=== PATIENT | male | born 1935 | race Caucasian/White ===

== ENCOUNTER 2017-03-04 12:54 | Emergency (ER) | payer MEDICARE, MEDICAID ==
[~2017-03-04] VITALS: Ht 172.7 cm; Wt 113.6 kg
[~2017-03-04 12:54] MED LIST: ALBU8I INH; LISI-360 PO; ONDA1TAB16 PO; XARE10TA PO
[2017-03-04 12:56] VITALS: BP 160/88; PULSE 66; RESP 20; TEMP 98; O2SAT 94
[2017-03-04] MEDS ORDERED: SODIUM CHLORIDE 0.9% FLUSH 10 ML FLUSH IV FLUSH PRN (13:30)
--- NOTE | 2017-03-04 13:31 | PD ---
HPI Chief Complaint: Flank/Kidney Pain Time Seen by Provider: 13:16 Travel History International Travel<30 days: No Contact w/Intl Traveler<30days: No Traveled to known affect area: No History of Present Illness HPI 81-year-old male here for evaluation of right flank pain 3 days. Patient describes sharp pain in his right flank area that is worse with movements, better with rest. He denies trauma. He reports some difficulty with urination. He denies dysuria or hematuria. No fevers or chills. No nausea or vomiting. No paresthesias or motor deficits. He drove himself here from home. PFS Past Medical History Arthritis: Yes Heart Rhythm Problems: No Cancer: No Cardiovascular Problems: No High Cholesterol: Yes COPD: Yes Diabetes: No Diminished Hearing: No Endocrine: No Genitourinary: No Hepatitis: No Hiatal Hernia: No Hypertension: Yes Immune Disorder: No Musculoskeletal: Yes (ARTHRITIS) Neurologic: No Psychiatric: No Reproductive: No Respiratory: Yes (COPD) Thyroid Disease: No Past Surgical History Eye Surgery: Yes (BILATERAL CATARACTS) Oral Surgery: Yes (LAUREN ENDOSCOPIC SINUOTOMIES) Other Surgery: Yes (NASAL POLYPS REMOVED) Social History Alcohol Use: No Tobacco Use: No Substance Use: No Allergies-Medications (Allergen,Severity, Reaction): Coded Allergies: Aspirin (Verified Allergy, Mild, HEART RATE INCREASES, 03/04/17) Caffeine (Verified Allergy, Mild, HEART RATE INCREASES, 03/04/17) Reported Meds & Prescriptions Reported Meds & Active Scripts Active Active Prescriptions or Reported Medications Unobtainable Review of Systems Except as stated in HPI: all other systems reviewed are Neg Physical Exam Narrative GENERAL: Well-developed, well-nourished, sitting comfortably on stretcher, no apparent distress. SKIN: Focused skin assessment warm/dry. No rash. HEAD: Atraumatic. Normocephalic. EYES: Pupils equal and round. No scleral icterus. No injection or drainage. ENT: Mucous membranes pink and moist. NECK: Trachea midline. No JVD. CARDIOVASCULAR: Regular rate and rhythm. RESPIRATORY: No accessory muscle use. Clear to auscultation. Breath sounds equal bilaterally. GASTROINTESTINAL: Abdomen soft, non-tender, nondistended. MUSCULOSKELETAL: No obvious deformities. No clubbing. No cyanosis. No edema. No midline vertebral step-off or tenderness. Moderate right flank/CVA tenderness as well as right SI joint tenderness. No left CVA tenderness. NEUROLOGICAL: Awake and alert. No obvious cranial nerve deficits. Motor grossly within normal limits. Normal speech. Great toe extension present bilaterally. PSYCHIATRIC: Appropriate mood and affect; insight and judgment normal. Data Data Last Documented VS Vital Signs Date Time Temp Pulse Resp B/P Pulse Ox O2 Delivery O2 Flow Rate FiO2 03/04/17 14:05 20 03/04/17 12:56 98.0 66 160/88 94 Orders Complete Blood Count With Diff (03/04/17 13:25) Comprehensive Metabolic Panel (03/04/17 13:25) Lipase (03/04/17 13:25) Prothrombin Time / Inr (Pt) (03/04/17 13:25) Act Partial Throm Time (Ptt) (03/04/17 13:25) Urinalysis - C+S If Indicated (03/04/17 13:25) Ct Abd/Pel W Iv Contrast(Rout) (03/04/17 13:25) Iv Access Insert/Monitor (03/04/17 13:25) Ecg Monitoring (03/04/17 13:25) Oximetry (03/04/17 13:25) Sodium Chloride 0.9% Flush (Ns Flush) (03/04/17 13:30) Ct Lumb Spine W/O Contrast (03/04/17 ) Iohexol 350 Inj (Omnipaque 350 Inj) (03/04/17 15:09) Mri T Spine W & W/O Contrast (03/04/17 ) Mri L Spine W&W/O Contrast (03/04/17 ) Labs Laboratory Tests Test 03/04/17 03/04/17 13:30 14:00 Urine Color YELLOW Urine Turbidity CLEAR Urine pH 6.0 Urine Specific [place] 1.023 Urine Protein NEG mg/dL Urine Glucose (UA) NEG mg/dL Urine Ketones NEG mg/dL Urine Occult Blood TRACE Urine Nitrite NEG Urine Bilirubin NEG Urine Leukocyte Esterase NEG Urine RBC 0-3 /hpf Urine WBC 0-2 /hpf Urine Squamous Epithelial > 8 /hpf Cells Urine Bacteria OCC /hpf Urine Mucus FEW /lpf Microscopic Urinalysis Comment CULT NOT INDICATED White Blood Count 9.8 TH/MM3 Red Blood Count 6.94 MIL/MM3 Hemoglobin 13.3 GM/DL Hematocrit 44.2 % Mean Corpuscular Volume 63.7 FL Mean Corpuscular Hemoglobin 19.2 PG Mean Corpuscular Hemoglobin 30.1 % Concent Red Cell Distribution Width 17.0 % Platelet Count 162 TH/MM3 Mean Platelet Volume 7.7 FL Neutrophils (%) (Auto) 39.0 % Lymphocytes (%) (Auto) 49.5 % Monocytes (%) (Auto) 6.2 % Eosinophils (%) (Auto) 4.0 % Basophils (%) (Auto) 1.3 % Neutrophils # (Auto) 3.8 TH/MM3 Lymphocytes # (Auto) 4.9 TH/MM3 Monocytes # (Auto) 0.6 TH/MM3 Eosinophils # (Auto) 0.4 TH/MM3 Basophils # (Auto) 0.1 TH/MM3 CBC Comment AUTO DIFF Differential Comment AUTO DIFF CONFIRMED Ovalocytes 2+ Prothrombin Time 10.1 SEC Prothromb Time International 0.9 RATIO Ratio Activated Partial 24.3 SEC Thromboplast Time Sodium Level 144 MEQ/L Potassium Level 4.6 MEQ/L Chloride Level 111 MEQ/L Carbon Dioxide Level 26.5 MEQ/L Anion Gap 7 MEQ/L Blood Urea Nitrogen 28 MG/DL Creatinine 1.50 MG/DL Estimat Glomerular Filtration 45 ML/MIN Rate Random Glucose 111 MG/DL Calcium Level 8.6 MG/DL Total Bilirubin 0.7 MG/DL Aspartate Amino Transf 15 U/L (AST/SGOT) Alanine Aminotransferase 20 U/L (ALT/SGPT) Alkaline Phosphatase 78 U/L Total Protein 7.5 GM/DL Albumin 3.5 GM/DL Lipase 275 U/L [facility] Medical Decision Making Medical Screen Exam Complete: Yes Emergency Medical Condition: Yes Differential Diagnosis Nephrolithiasis, pyelonephritis, ureterolithiasis, dissection, musculoskeletal pain, spinal stenosis, hepatobiliary disease Narrative Course Initial vital signs show heart rate 66, blood pressure 160/88, pulse ox 94% on room air, oral temp of 98F. CBC shows WBC 9.8, hemoglobin 13.3, hematocrit 44.2, platelets 162, MCV 63.7 CMP is remarkable for BUN 28, creatinine 1.5, GFR 45 which is around his baseline, otherwise unremarkable. Lipase is 275. UA: Trace occult blood, greater than 8 epithelial cells, occasional bacteria, few mucus, negative nitrites, negative leukocyte esterase, not suggestive of UTI. CT abdomen pelvis: CONCLUSION: 1. No calcified renal stones or hydronephrosis. 2. Sigmoid diverticulosis without radiographic evidence of diverticulitis. 3. Small umbilical hernia. CT lumbar spine: CONCLUSION: 1. Large minimally expansile lytic lesion involving the right iliac bone abutting the SI joint with sharply defined sclerotic margins and potential cortical breakthrough medially at the SI joint. Overall features are consistent with a lesion of low biologic activity and differential considerations include aneurysmal bone cyst and fibrous dysplasia. Multiple myeloma/metastatic disease are felt to be less likely. Consider MRI examination for further evaluation. 2. Multiple large Schmorl's nodes involving T12 and L1 superior endplates. If patient has focal pain on palpation of the spinous processes at these levels and there is concern for acute compression fractures, MRI examination may be performed to evaluate for bone marrow edema. 3. Degenerative spondylosis of the lumbar spine most prominently at L4-5, as above. Patient was made aware of all findings. He reports that he is pain-free while at rest, however experiences flank pain with exertion. He denies history of trauma. He has agreed to have MRI today for further investigation. This decision was made at time of the end of my shift approximate 4:00 PM. At this time the patient was signed out to Dr. Barraza to follow up with MRI and formulate a disposition. Scripts Unable to Obtain Active Prescriptions or Reported Meds Ian Perez MD Mar 04, 2017 13:31
[2017-03-04 13:43] LABS: BLOOD, URINE TRACE (NEG); GLUCOSE,URINE NEG (NEG); KETONE, URINE NEG (NEG); NITRITE,URINE NEG (NEG)
[2017-03-04 13:49] LABS: MUCUS URINE FEW /lpf (OCC); RBC, URINE 0-3 /hpf (0-3); SQUAMOUS EPITHELIAL CELL URINE > 8 /hpf (0-5); URINE COLOR YELLOW (YELLW/STRAW); WBC, URINE 0-2 /hpf (0-5)
[2017-03-04 13:50] LABS: BACTERIA, URINE OCC /hpf; COMMENT (UR) CULT NOT INDICATED; CULTURE IF INDICATED CULT NOT INDICATED
[2017-03-04 14:21] LABS: AUTOMATED NEUTROPHIL # 3.8 TH/MM3 (1.8-7.7); BASOPHIL # 0.1 TH/MM3 (0-0.2); BASOPHIL % 1.3 % (0.0-2.0); EOSINOPHIL # 0.4 TH/MM3 (0-0.4); HEMATOCRIT 44.2 % (39.0-51.0); LYMPH % 49.5 % (9.0-44.0); LYMPHOCYTE # 4.9 TH/MM3 (1.0-4.8); MEAN CELL VOLUME 63.7 FL (80.0-100.0); MEAN CORPUSCULAR HEMOGLOBIN 19.2 PG (27.0-34.0); MEAN CORPUSCULAR HGB CONC 30.1 % (32.0-36.0); MONO % 6.2 % (0.0-8.0); PLATELET COUNT 162 TH/MM3 (150-450); RED BLOOD COUNT 6.94 MIL/MM3 (4.50-5.90); WHITE BLOOD COUNT 9.8 TH/MM3 (4.0-11.0)
[2017-03-04 14:22] LABS: HEMO FLAGS AUTO DIFF
[2017-03-04 14:28] LABS: CHLORIDE 111 MEQ/L (98-107); POTASSIUM 4.6 MEQ/L (3.5-5.1); SODIUM (NA) 144 MEQ/L (136-145)
[2017-03-04 14:31] LABS: APTT (PATIENT) 24.3 SEC (24.3-30.1); INTERNATIONAL NORMALIZED RATIO 0.9 RATIO; PROTHROMBIN TIME - PATIENT 10.1 SEC (9.8-11.6)
[2017-03-04 14:32] LABS: ANION GAP 7 MEQ/L (5-15); BICARBONATE 26.5 MEQ/L (21.0-32.0); BLOOD UREA NITROGEN 28 MG/DL (7-18)
[2017-03-04 14:35] LABS: ALT (GPT) 20 U/L (12-78); AST (GOT) 15 U/L (15-37); GLOMERULAR FILTRATION RATE 45 ML/MIN (>89)
[2017-03-04 14:36] LABS: TOTAL BILIRUBIN ADULT 0.7 MG/DL (0.2-1.0)
[2017-03-04 14:38] LABS: ALKALINE PHOSPHATASE 78 U/L (45-117)
[2017-03-04] MEDS ORDERED: IOHEXOL 350 MG/ML 10 ML VIAL (for RAD DIAG) IV ONE (15:09)
--- NOTE | 2017-03-04 15:19 | RADRPT ---
EXAM DATE/TIME: 03/04/2017 14:44 [facility] COMPARISON: No previous studies available for comparison. INDICATIONS : Right flank pain. IV CONTRAST: 80 cc Omnipaque 350 (iohexol) IV ORAL CONTRAST: No oral contrast ingested. RADIATION DOSE: 21.53 CTDIvol (mGy) MEDICAL HISTORY : Hypertension. Chronic obstructive pulmonary disease. SURGICAL HISTORY : None. ENCOUNTER: Initial ACUITY: 3 days PAIN SCALE: 10/10 LOCATION: Right flank TECHNIQUE: Volumetric scanning of the abdomen and pelvis was performed. Using automated exposure control and ad justment of the mA and/or kV according to patient size, radiation dose was kept as low as reasonably achievable to obtain optimal diagnostic quality images. DICOM format image data is available electro nically for review and comparison. FINDINGS: LOWER LUNGS: The visualized lower lungs are clear. LIVER: Homogeneous density without lesion. There is no dilation of the biliary tree. Numerous calcified ga llstones measuring up to 1 cm in size. SPLEEN: Normal size without lesion. PANCREAS: Within normal limits. KIDNEYS: Normal in size and shape. There is no mass, stone or hydronephrosis. Numerous cysts in the right ki dney measuring up to 6.2 cm. Transcortical cyst upper pole left kidney measuring 4.0 cm. ADRENAL GLANDS: Within normal limits. VASCULAR: There is no aortic aneurysm. BOWEL/MESENTERY: No dilated loops of small enlarged bowel. Numerous diverticula in the sigmoid colon. There is a loo p of small bowel which extends into the umbilical hernia. ABDOMINAL WALL: Small umbilical hernia containing small bowel. RETROPERITONEUM: There is no lymphadenopathy. BLADDER: No wall thickening or mass. REPRODUCTIVE: The prostate is enlarged measuring 6.1 cm in width. Density is mildly heterogeneous. No calcificati ons. INGUINAL: There is no lymphadenopathy or hernia. MUSCULOSKELETAL: Within normal limits for patient age. CONCLUSION: 1. No calcified renal stones or hydronephrosis. 2. Sigmoid diverticulosis without radiographic evidence of diverticulitis. 3. Small umbilical hernia. Tarun Coelho MD on March 04, 2017 at 15:14 Board Certified Radiologist. This report was verified electronically.
--- NOTE | 2017-03-04 15:43 | RADRPT ---
EXAM DATE/TIME: 03/04/2017 14:44 [facility] COMPARISON: ABDOMEN FLAT & UPRIGHT, March 08, 2016, 15:30. INDICATIONS : Right flank pain. RADIATION DOSE: ; Reconstructed from previous dataset MEDICAL HISTORY : Hypertension. Chronic obstructive pulmonary disease. SURGICAL HISTORY : None. ENCOUNTER: Initial ACUITY: 3 days PAIN SCALE: 10/10 LOCATION: Right flank TECHNIQUE: Volumetric scanning of the lumbar spine was performed. Multiplanar reconstructions in the sagittal, coronal and oblique axial planes were performed. Using automated exposure control and adjustment of the mA and/or kV according to patient size, radiation dose was kept as low as reasonably achievable t o obtain optimal diagnostic quality images. DICOM format image data is available electronically for review and comparison. FINDINGS: Compression deformities of the superior endplates at T12 and L1 with appearance consistent with large Schmorl's nodes. Remaining vertebral body heights are intact. No evidence for acute bony fracture. T here is a large minimally expansile lytic lesion involving the right iliac bone abutting the SI joint with sharply defined sclerotic margins. There is possible cortical breakthrough medially at the SI j oint. No definite soft tissue component. There are no additional focal lytic or blastic bony lesions. There is multilevel degenerative spondylosis most prominently at L4-5 with disc space loss, vacuum d isc phenomenon, and posterior disc osteophyte complex. There is resultant mild right and moderate lef t neural foraminal stenosis. Visualized paraspinal soft tissues demonstrate a partially imaged large cyst in the right kidney. Mod erate atherosclerotic calcifications of the abdominal aorta. Remaining paravertebral soft tissues are unremarkable. CONCLUSION: 1. Large minimally expansile lytic lesion involving the right iliac bone abutting the SI joint with s harply defined sclerotic margins and potential cortical breakthrough medially at the SI joint. Overal l features are consistent with a lesion of low biologic activity and differential considerations incl ude aneurysmal bone cyst and fibrous dysplasia. Multiple myeloma/metastatic disease are felt to be l ess likely. Consider MRI examination for further evaluation. 2. Multiple large Schmorl's nodes involving T12 and L1 superior endplates. If patient has focal pain on palpation of the spinous processes at these levels and there is concern for acute compression frac tures, MRI examination may be performed to evaluate for bone marrow edema. 3. Degenerative spondylosis of the lumbar spine most prominently at L4-5, as above. Yasmany Ellis MD on March 04, 2017 at 15:17 Board Certified Radiologist. This report was verified electronically.
[2017-03-04 15:57] LABS: OVALOCYTES 2+ (NORMAL); SCAN/DIFF AUTO DIFF CONFIRMED
[2017-03-04 16:16] VITALS: BP 172/92; PULSE 72; RESP 20; O2SAT 98
--- NOTE | 2017-03-04 16:38 | PD ---
Physical Exam Date Seen by Provider: Mar 04, 2017 Time Seen by Provider: 16:36 Narrative This 81-year-old male had presented with back pain. He was seen initially by Dr. Perez and CT scans of his pelvis and spine were obtained. He had abnormalities of the pelvis. He had an expansile lesion in the ileum and some Schmorl's nodes in his neck. MRI was recommended for further characterization of these lesions. We spoke with the patient regarding getting the MRIs and recommended that we get them now and in fact the MRIs were ordered. The patient does have a lot of issues at home. He is helping his daughter care for his grandchild who is having a lot of behavioral problems and the patient says he cannot stay. He is a patient with Dr. Smith to [facility] and he says he will follow-up with Dr. Myles on Tuesday. The patient does not have any neurologic deficits he will be encouraged to return if any problem. He has been taking [id number] medication with incomplete relief and I will prescribe some Lortab for him to use for the next few days. Patient understands that the differential includes tumor and we have tried to encourage him to stay for further evaluation but says he is not able to at this time Data Data Last Documented VS Vital Signs Date Time Temp Pulse Resp B/P Pulse Ox O2 Delivery O2 Flow Rate FiO2 03/04/17 16:16 72 20 172/92 98 Room Air 03/04/17 12:56 98.0 Orders Complete Blood Count With Diff (03/04/17 13:25) Comprehensive Metabolic Panel (03/04/17 13:25) Lipase (03/04/17 13:25) Prothrombin Time / Inr (Pt) (03/04/17 13:25) Act Partial Throm Time (Ptt) (03/04/17 13:25) Urinalysis - C+S If Indicated (03/04/17 13:25) Ct Abd/Pel W Iv Contrast(Rout) (03/04/17 13:25) Iv Access Insert/Monitor (03/04/17 13:25) Ecg Monitoring (03/04/17 13:25) Oximetry (03/04/17 13:25) Sodium Chloride 0.9% Flush (Ns Flush) (03/04/17 13:30) Ct Lumb Spine W/O Contrast (03/04/17 ) Iohexol 350 Inj (Omnipaque 350 Inj) (03/04/17 15:09) Labs Laboratory Tests Test 03/04/17 03/04/17 13:30 14:00 Urine Color YELLOW Urine Turbidity CLEAR Urine pH 6.0 Urine Specific [place] 1.023 Urine Protein NEG mg/dL Urine Glucose (UA) NEG mg/dL Urine Ketones NEG mg/dL Urine Occult Blood TRACE Urine Nitrite NEG Urine Bilirubin NEG Urine Leukocyte Esterase NEG Urine RBC 0-3 /hpf Urine WBC 0-2 /hpf Urine Squamous Epithelial > 8 /hpf Cells Urine Bacteria OCC /hpf Urine Mucus FEW /lpf Microscopic Urinalysis Comment CULT NOT INDICATED White Blood Count 9.8 TH/MM3 Red Blood Count 6.94 MIL/MM3 Hemoglobin 13.3 GM/DL Hematocrit 44.2 % Mean Corpuscular Volume 63.7 FL Mean Corpuscular Hemoglobin 19.2 PG Mean Corpuscular Hemoglobin 30.1 % Concent Red Cell Distribution Width 17.0 % Platelet Count 162 TH/MM3 Mean Platelet Volume 7.7 FL Neutrophils (%) (Auto) 39.0 % Lymphocytes (%) (Auto) 49.5 % Monocytes (%) (Auto) 6.2 % Eosinophils (%) (Auto) 4.0 % Basophils (%) (Auto) 1.3 % Neutrophils # (Auto) 3.8 TH/MM3 Lymphocytes # (Auto) 4.9 TH/MM3 Monocytes # (Auto) 0.6 TH/MM3 Eosinophils # (Auto) 0.4 TH/MM3 Basophils # (Auto) 0.1 TH/MM3 CBC Comment AUTO DIFF Differential Comment AUTO DIFF CONFIRMED Ovalocytes 2+ Prothrombin Time 10.1 SEC Prothromb Time International 0.9 RATIO Ratio Activated Partial 24.3 SEC Thromboplast Time Sodium Level 144 MEQ/L Potassium Level 4.6 MEQ/L Chloride Level 111 MEQ/L Carbon Dioxide Level 26.5 MEQ/L Anion Gap 7 MEQ/L Blood Urea Nitrogen 28 MG/DL Creatinine 1.50 MG/DL Estimat Glomerular Filtration 45 ML/MIN Rate Random Glucose 111 MG/DL Calcium Level 8.6 MG/DL Total Bilirubin 0.7 MG/DL Aspartate Amino Transf 15 U/L (AST/SGOT) Alanine Aminotransferase 20 U/L (ALT/SGPT) Alkaline Phosphatase 78 U/L Total Protein 7.5 GM/DL Albumin 3.5 GM/DL Lipase 275 U/L MDM Supervised Visit with BESSY: No Differential Diagnosis Differential includes space-occupying lesion, malignancy, Cysts Narrative Course Patient needs further workup. MRI is brought for her in fact ordered by Dr. Hanks but the patient is quite anxious that he has to leave and says he'll see Dr. Smith for outpatient workup Diagnosis Primary Impression: Back pain Qualified Code: M54.5 - Low back pain, unspecified back pain laterality, unspecified chronicity, with sciatica presence unspecified Scripts Hydrocodone-Acetaminophen (Lortab)7.5-325 Mg Tab1 Tab PO Q4H PRN (PAIN) #20 TAB Ref 0 Prov:Jamaal Barraza MD 03/04/17 Disposition: 01 DISCHARGE HOME Condition: Stable Jamaal Barraza MD Mar 04, 2017 16:38
[2017-03-04] MEDS ORDERED: HYDR-3534 PO (16:39)
== END 2017-03-04 16:57 | disposition home or self-care (01) ==
LOC: PHED 12:54
DX: M54.40 Lumbago with sciatica, unspecified side (principal); M19.90 Unspecified osteoarthritis, unspecified site; E78.00 Pure hypercholesterolemia, unspecified; J44.9 Chronic obstructive pulmonary disease, unspecified; I10 Essential (primary) hypertension
CPT/HCPCS: 72131; 74177; 80053; 81001; 83690; 85025; 85610; 85730; 99285; Q9967

== ENCOUNTER 2017-11-28 10:57 | Emergency (ER) | payer MEDICARE, MEDICAID ==
[~2017-11-28] VITALS: Ht 172.7 cm; Wt 111.0 kg
[~2017-11-28 10:57] MED LIST changes: -ALBU8I INH; +HYDR-3534 PO; -LISI-360 PO; -ONDA1TAB16 PO; -XARE10TA PO
[2017-11-28 11:04] VITALS: BP 132/74; PULSE 65; RESP 18; TEMP 97.7; O2SAT 90
[2017-11-28] MEDS ORDERED: BP MED (11:10)
[2017-11-28] MEDS ORDERED: DEXAMETHASONE SOD PHOS 4 MG/ML VIAL IM ONE (12:00)
[2017-11-28] MEDS ORDERED: ACETAMINOPHEN/HYDROcodone 325 MG/5 MG TAB PO ONE (12:00)
--- NOTE | 2017-11-28 12:00 | PD ---
HPI Chief Complaint: Musculoskeletal Complaint Time Seen by Provider: 11:43 Travel History International Travel<30 days: No Contact w/Intl Traveler<30days: No Traveled to known affect area: No History of Present Illness HPI 82-year-old male here with right great toe pain 2 days. He reports the area has become increasingly more painful, red, swollen. No injury or trauma. No fever chills. Cannot recall being diagnosed with gout in the past although he reports other nontraumatic joint pain in the past similar to this. Symptom severity is moderate. Aggravated by movement and palpation of the area. No alleviating factors. PFSH Past Medical History Arthritis: Yes Blood Disorders: No Heart Rhythm Problems: No Cancer: No Cardiovascular Problems: No High Cholesterol: Yes COPD: Yes Diabetes: Yes (II) Patient Takes Glucophage: No Diminished Hearing: No Endocrine: No Gastrointestinal Disorders: No Genitourinary: No Hepatitis: No Hiatal Hernia: No Hypertension: Yes Immune Disorder: No Implanted Vascular Access Dvce: Yes Medical other: Yes (ARTHRITIS) Musculoskeletal: Yes (ARTHRITIS) Neurologic: No Psychiatric: No Reproductive: No Respiratory: Yes Thyroid Disease: No Tetanus Vaccination: Unknown Past Surgical History Eye Surgery: Yes (BILATERAL CATARACTS) Oral Surgery: Yes (LAUREN ENDOSCOPIC SINUOTOMIES) Other Surgery: Yes (NASAL POLYPS REMOVED) Social History Alcohol Use: No Tobacco Use: No (quit 8 approx years ago) Substance Use: No Allergies-Medications (Allergen,Severity, Reaction): Coded Allergies: aspirin (Unverified Allergy, Mild, HEART RATE INCREASES, 11/28/17) caffeine (Unverified Allergy, Mild, HEART RATE INCREASES, 11/28/17) Reported Meds & Prescriptions Reported Meds & Active Scripts Active Reported [Bp Med] Review of Systems Except as stated in HPI: all other systems reviewed are Neg General / Constitutional: No: Fever Eyes: No: Visual changes HENT: No: Headaches Cardiovascular: No: Chest Pain or Discomfort Respiratory: No: Shortness of Breath Gastrointestinal: No: Abdominal Pain Genitourinary: No: Dysuria Musculoskeletal: Positive: Pain (Right great toe) Skin: No Rash Physical Exam Narrative GENERAL: Alert and well-appearing 82-year-old male SKIN: Warm and dry. HEAD: Normocephalic. EYES: No injection or drainage. NECK: Supple CARDIOVASCULAR: Regular rate and rhythm without murmurs, gallops, or rubs. RESPIRATORY: Breath sounds equal bilaterally. No accessory muscle use. GASTROINTESTINAL: Abdomen soft, non-tender, nondistended. MUSCULOSKELETAL: No cyanosis. Right foot: Notable swelling, erythema, warmth of the right first metatarsal pharyngeal joint. No open wounds or abrasions. 2 + DP pulse normal sensation. Brisk cap refill. BACK: Nontender without obvious deformity. No CVA tenderness. Data Data Last Documented VS Vital Signs Date Time Temp Pulse Resp B/P (MAP) Pulse Ox O2 Delivery O2 Flow Rate FiO2 11/28/17 11:04 97.7 65 18 132/74 (93) 90 Orders Orders Foot, Limited (2vws) (11/28/17 ) Dexamethasone Inj (Decadron Inj) (11/28/17 12:00) Acetamin-Hydrocod 325-5 Mg ([place] 5-325 (11/28/17 12:00) [facility] Medical Decision Making Medical Screen Exam Complete: Yes Emergency Medical Condition: Yes Differential Diagnosis Gouty arthritis, septic arthritis unlikely, cellulitis Narrative Course 82-year-old male here with what appears to be gouty arthritis to the right great toe. He is nontoxic appearing. Vital signs are stable. She was given a shot of Decadron. X-rays negative for any abnormality. Patient will be treated for presumed gout versus cellulitis. He is to follow-up with his primary doctor this week. Return precautions were discussed. Patient verbalized understanding and agrees to plan. Diagnosis Primary Impression: Gout Qualified Codes: M10.9 - Gout, unspecified Referrals: Primary Care Physician Additional Instructions: Medication as directed. Follow-up with her primary doctor this week. Avoid high purine foods Scripts Hydrocodone-Acetaminophen ([place]) 5 Mg-325 Mg Tab 1 TAB PO Q6H Y for PAIN, #12 TAB 0 Refills Prov: Dilia Schneider 11/28/17 Doxycycline Hyclate (Doxycycline Hyclate) 100 Mg Cap 100 MG PO BID for Infection, #14 CAP 0 Refills Prov: Dilia Schneider 11/28/17 Prednisone (Prednisone) 20 Mg Tab 40 MG PO DAILY, #10 TAB 0 Refills Take 40 mg (2 tablets) daily for 5 days Prov: Dilia Schneider 11/28/17 Disposition: 01 DISCHARGE HOME Condition: Stable Dilia Schnieder Nov 28, 2017 12:00
[2017-11-28] MEDS ORDERED: PRED20 PO (12:26)
[2017-11-28] MEDS ORDERED: DOXY100C PO (12:26)
[2017-11-28] MEDS ORDERED: NORC5TAB PO (12:26)
--- NOTE | 2017-11-28 12:29 | RADRPT ---
EXAM DATE/TIME: 11/28/2017 12:06 [facility] COMPARISON: No previous studies available for comparison. INDICATIONS : Right foot swelling, No known trauma MEDICAL HISTORY : Diabetes mellitus type II. SURGICAL HISTORY : None. ENCOUNTER: Initial ACUITY: 1 day PAIN SCORE: 7/10 LOCATION: Right foot FINDINGS: No acute fracture or subluxation demonstrated. Mild hallux valgus noted and mild degenerative changes at the first metatarsophalangeal joint and sesamoids. Also the second through fifth hammertoe. There are vascular calcifications and diffuse soft tissue swelling. CONCLUSION: Diffuse soft tissue swelling, nonspecific. No acute bony abnormality demonstrated. Goyo Chen MD on November 28, 2017 at 12:27 Board Certified Radiologist. This report was verified electronically.
== END 2017-11-28 12:43 | disposition home or self-care (01) ==
LOC: PHEFT 10:57
DX: M10.9 Gout, unspecified (principal); E11.9 Type 2 diabetes mellitus without complications; M19.90 Unspecified osteoarthritis, unspecified site; E78.00 Pure hypercholesterolemia, unspecified; J44.9 Chronic obstructive pulmonary disease, unspecified; I10 Essential (primary) hypertension; Z87.891 Personal history of nicotine dependence
CPT/HCPCS: 73620; 96372; 99283; J1100

== ENCOUNTER 2018-01-17 06:46 | Inpatient (IN) | payer MEDICARE, MEDICAID ==
[~2018-01-17] VITALS: Ht 174 cm; Wt 119.6 kg
[~2018-01-17 06:46] MED LIST changes: +DOXY100C PO; -HYDR-3534 PO; +NORC5TAB PO; +PRED20 PO
[2018-01-17] MEDS ORDERED: GLUCAGON 1 MG/ML VIAL ONE (06:57)
[2018-01-17] MEDS ORDERED: BUPIVACAINE/EPINEPHRINE 0.5% PF 10 ML VIAL ONE (06:59)
[2018-01-17] MEDS ORDERED: LISI-519 PO (07:25)
[2018-01-17] MEDS ORDERED: IPRA17I INH (07:25)
[2018-01-17] MEDS ORDERED: INSULIN HUMAN REGULAR 1,000 UNITS/10 ML VIAL SQ PRN (07:30)
[2018-01-17] MEDS ORDERED: LACTATED RINGER'S 1000 ML IV PRN (07:30)
[2018-01-17] MEDS ORDERED: ALVIMOPAN 12 MG CAPSULE - On Call PO SCH (07:30)
[2018-01-17] MEDS ORDERED: METRONIDAZOLE 500 MG/100 ML ISONTONIC SOLN IV SCH (07:30)
[2018-01-17] MEDS ORDERED: CHLORHEXIDINE GLUCONATE 2 % 1 PACK (2 CLOTHS) TOPICAL PRN (07:30)
[2018-01-17] MEDS ORDERED: SODIUM CHLORID 0.9% 500 ML IV PRN (07:30)
[2018-01-17] MEDS ORDERED: METOPROLOL TARTRATE 25 MG TAB PO PRN (07:30)
[2018-01-17] MEDS ORDERED: ceFAZolin 2 GM/DEX PREMIX 50 ML IV SCH (07:30)
[2018-01-17] MEDS ORDERED: POVIDONE IODINE 5% (ANTISEPSIS KIT) 4 APPLICATIONS EACH NARE PRN (07:30)
[2018-01-17] MEDS ORDERED: FAT EMULSION 20% INJ 0 ML ONE (07:33)
[2018-01-17] MEDS ORDERED: BUPIVACAINE HCL PF 0.25% 30 ML VIAL ONE ×2 (07:37→07:38)
[2018-01-17] MEDS ORDERED: LIDOCAINE HCL 1% PF 5 ML AMPULE ONE (07:37)
[2018-01-17] MEDS ORDERED: BUPIVACAINE LIPOSOME PF 1.3% 20 ML VIAL ONE (07:37)
[2018-01-17 07:40] LABS: AUTOMATED NEUTROPHIL # 5.4 TH/MM3 (1.8-7.7); BASOPHIL # 0.1 TH/MM3 (0-0.2); BASOPHIL % 0.7 % (0.0-2.0); EOSINOPHIL # 0.4 TH/MM3 (0-0.4); HEMATOCRIT 40.3 % (39.0-51.0); HEMOGLOBIN 12.5 GM/DL (13.0-17.0); LYMPH % 51.6 % (9.0-44.0); LYMPHOCYTE # 7.3 TH/MM3 (1.0-4.8); MEAN CELL VOLUME 61.6 FL (80.0-100.0); MEAN CORPUSCULAR HEMOGLOBIN 19.1 PG (27.0-34.0); MEAN PLATELET VOLUME 8.6 FL (7.0-11.0); MONO % 6.2 % (0.0-8.0); MONOCYTE # 0.9 TH/MM3 (0-0.9); NEUT % 38.5 % (16.0-70.0); PLATELET COUNT 180 TH/MM3 (150-450); RED BLOOD COUNT 6.55 MIL/MM3 (4.50-5.90); RED CELL DISTRIBUTION WIDTH 18.4 % (11.6-17.2); WHITE BLOOD COUNT 14.1 TH/MM3 (4.0-11.0)
[2018-01-17 07:58] LABS: CALCIUM 8.7 MG/DL (8.5-10.1); CREATININE 1.32 MG/DL (0.60-1.30)
[2018-01-17 09:06] LABS: BASOPHILS 3 % (0-2); BLASTS 1 % (0-0); MONOCYTES 6 % (0-8); NEUTROPHIL # MANUAL DIFF 5.4 TH/MM3 (1.8-7.7); POLYS (SEG NEUTROPHILS) 38 % (16-70)
[2018-01-17 09:10] LABS: LYMPHOCYTES 52 % (9-44); SMUDGE CELLS PRESENT PRESENT
[2018-01-17 09:16] LABS: OVALOCYTES 2+ (NORMAL)
[2018-01-17] MEDS ORDERED: ACETAMINOPHEN 1000 MG/100 ML 100 ML IV ONE (10:00)
[2018-01-17] MEDS ORDERED: DEXAMETHASONE SOD PHOS 4 MG/ML VIAL ONE (10:00)
[2018-01-17] MEDS ORDERED: *RESP: ALBUTEROL 2.5 MG/3 ML NEB (PRN) PERIprocedural Use ONLY NEB ONE (12:11)
[2018-01-17] MEDS ORDERED: MIDAZOLAM HCL 2 MG/2 ML VIAL ONE (12:13)
[2018-01-17] MEDS ORDERED: ACETAMINOPHEN/HYDROcodone 325 MG/7.5 MG TAB PO PRN (12:30)
[2018-01-17] MEDS ORDERED: BENZOCAINE 20% ORAL SPR 60 ML CAN MT PRN (12:30)
[2018-01-17] MEDS ORDERED: Post-op Orders (for Pharmacy) XX ONE (12:30)
[2018-01-17] MEDS ORDERED: SODIUM CHLORIDE 0.9% FLUSH 10 ML FLUSH IV FLUSH PRN (12:30)
[2018-01-17] MEDS: SODIUM CHLORIDE 0.9% FLUSH 10 ML FLUSH IV FLUSH SCH ×2 (12:30→21:00)
[2018-01-17] MEDS ORDERED: NALOXONE HCL 0.4 MG/ML AMP IV PUSH PRN ×2 (12:30)
[2018-01-17] MEDS ORDERED: diphenhydrAMINE HCL 50 MG/ML VIAL IV PUSH PRN (12:30)
[2018-01-17] MEDS ORDERED: ONDANSETRON HCL 4 MG/2 ML VIAL IV PUSH PRN (12:30)
[2018-01-17] MEDS ORDERED: ACETAMINOPHEN/HYDROcodone 325 MG/5 MG TAB PO PRN (12:30)
[2018-01-17] MEDS ORDERED: DO NOT ADM ANY ANTICOAGULANT DRUGS PRN (12:45)
[2018-01-17] MEDS: SODIUM CHLOR 0.9% 1000 ML INJ 1,000 ML IV SCH ×2 (13:00→14:00)
[2018-01-17] MEDS ORDERED: IPRATROPIUM BROMIDE 17 MCG/ACT 12.9 GM INHALER INH SCH (13:00)
[2018-01-17] MEDS ORDERED: *ONDANSETRON 4 MG VIAL PERIprocedural Use ONLY ONE (13:13)
--- NOTE | 2018-01-17 13:32 | PD.CONS ---
[facility] Service Critical Care Medicine Consult Requested By Dr. Asher Reason for Consult Severe COPD Primary Care Physician Yfn Myles MD History of Present Illness This is an 82-year-old male. The admission date is 01/18/2000. Date of consultation 01/17/2018. Past medical history includes COPD, essential hypertension, hyperlipidemia, osteoarthrosis, diabetes mellitus. On 12/14 patient had a colonoscopy with a diagnosis of adenocarcinoma the sigmoid colon by Dr. Rojas. Patient was seen as an outpatient is scheduled for surgery today by Dr. Asher which included laparoscopic resection of the sigmoid colon placement of a colostomy. EBL was 2300. 50 cc EBL. 400 cc urine output. A left radial arterial line was placed. Patient was extubated and is currently hemodynamically stable in PACU. Patient is very hard of hearing. Patient is currently on a morphine FRUIT THINNER. Preoperative labs revealed creatinine 1.3. Elevated white blood count of 14, 000 hemoglobin 12. Review of Systems ROS Limitations: Clinical Condition, Altered Mental Status Past Family Social History Allergies: Coded Allergies: aspirin (Unverified Allergy, Mild, HEART RATE INCREASES, 01/17/18) caffeine (Unverified Allergy, Mild, HEART RATE INCREASES, 01/17/18) Past Medical History Essential hypertension Hyperlipidemia Chronic obstructive pulmonary disease Osteoarthritis/rheumatoid arthritis? History of polyneuropathy? Diabetes mellitus questionable Past Surgical History Right total knee arthroplasty Cataract Reported Medications Lisinopril 5 mg p.o. daily Ipratropium inhaler every 6 hours Active Ordered Medications Reviewed in EMR Family History Father from MVC complications at age 72. Mother of old age at age 89 Social History 50 year tobacco history. Quit 8 years ago. Denies alcohol or intravenous drug use Physical Exam Vital Signs Vital Signs Date Time Temp Pulse Resp B/P (MAP) Pulse Ox O2 Delivery O2 Flow Rate FiO2 01/17/18 13:15 69 17 155/77 (103) 96 Nasal Cannula 3 Simple Mask 01/17/18 13:00 70 21 160/73 (102) 96 Nasal Cannula 3 Simple Mask 01/17/18 12:45 74 19 153/75 (101) 95 Nasal Cannula 3 Simple Mask 01/17/18 12:30 77 20 152/74 (100) 95 Nasal Cannula 3 Simple Mask 01/17/18 12:15 78 21 151/73 (99) 96 Nasal Cannula 3 Simple Mask 01/17/18 12:04 97.6 83 21 155/79 (104) 99 Simple Mask 8 01/17/18 07:18 97.6 70 24 145/72 (96) 98 Physical Exam GENERAL:82-year-old male very hard of hearing resting in bed in no acute distress SKIN: Warm and dry. HEAD: Atraumatic. Normocephalic. EYES: Pupils equal and round. About 3 mm bilaterally and reactive no scleral icterus. No injection or drainage. ENT: No nasal bleeding or discharge. Mucous membranes pink and moist. NECK: Trachea midline. No JVD. CARDIOVASCULAR: Regular rate and rhythm. S1, S2. No S4. No murmur RESPIRATORY: Diminished throughout. Clear to auscultation. Breath sounds equal bilaterally. GASTROINTESTINAL: 3 trocar incisions midline including umbilicus with no active bleeding. Colostomy site is pink with bag in place. MUSCULOSKELETAL: Extremities with trace bilateral lower extremity edema. No obvious deformities. NEUROLOGICAL: Awake and alert. No obvious cranial nerve deficits. Motor grossly within normal limits. Five out of 5 muscle strength in the arms and legs. Normal speech. Laboratory Laboratory Tests Test 01/17/18 02:15 White Blood Count 14.1 Red Blood Count 6.55 Hemoglobin 12.5 Hematocrit 40.3 Mean Corpuscular Volume 61.6 Mean Corpuscular Hemoglobin 19.1 Mean Corpuscular Hemoglobin Concent 31.0 Red Cell Distribution Width 18.4 Platelet Count 180 Mean Platelet Volume 8.6 Neutrophils (%) (Auto) 38.5 Lymphocytes (%) (Auto) 51.6 Monocytes (%) (Auto) 6.2 Eosinophils (%) (Auto) 3.0 Basophils (%) (Auto) 0.7 Neutrophils # (Auto) 5.4 Lymphocytes # (Auto) 7.3 Monocytes # (Auto) 0.9 Eosinophils # (Auto) 0.4 Basophils # (Auto) 0.1 CBC Comment AUTO DIFF Differential Total Cells Counted 100 Neutrophils % (Manual) 38 Lymphocytes % 52 Monocytes % 6 Basophils % 3 Neutrophils # (Manual) 5.4 Differential Comment FINAL DIFF MANUAL Atypical Lymphocytes Blastocytes 1 Smudge Cells PRESENT Platelet Estimate NORMAL Platelet Morphology Comment NORMAL Ovalocytes 2+ Blood Urea Nitrogen 27 Creatinine 1.32 Random Glucose 115 Calcium Level 8.7 Sodium Level 144 Potassium Level 4.3 Chloride Level 110 Carbon Dioxide Level 24.0 Anion Gap 10 Estimat Glomerular Filtration Rate 52 Result Diagram: 5/22/18 0215 5/22/18 0215 Septic Shock Reassessment Septic shock perfusion: reassessment completed Assessment and Plan Assessment and Plan Neuro/Psych: History of polyneuropathy? Morphine FRUIT THINNER per primary for pain management Also written for hydrocodone/acetaminophen 5/325 1 tablet every 4 hours. Pain 3 -5 and 7.5/325 1 tablet every 4 hours as needed pain 6 - 10 Ofirmev 1 g IV every 6 hours 4 dosages per primary CV: Essential hypertension Hyperlipidemia Resume home medications lisinopril 5 mg p.o. daily. Check BMP in a.m. As needed labetalol, hydralazine Nitropaste for elevated blood pressure Previously on fish oil. Not currently on Resp: History of COPD Nasal cannula to maintain saturations greater than or equal to 92% Incentive spirometry while awake Switch ipratropium HFA 2 ipratropium nebulizers every 6 hours scheduled Albuterol aerosols every 2 hours as needed dyspnea GI: Postop day #0 laparoscopic colectomy with colostomy placement secondary to adenocarcinoma Postoperative management per GI. Lansoprazole for GI prophylaxis Bowel management per general surgery Ostomy cares : Barekr catheter placed for accurate I's and O's in a critically ill patient Endo: Diabetes mellitus? Sliding scale insulin with Accu-Cheks to maintain euglycemia Renal: Elevated creatinine 1.3 unknown if acute or chronic Recheck BMP in a.m. Monitor urine output Accurate I's and O's Heme: Leukocytosis Normocytic anemia Adenocarcinoma of the colon Monitor CBC daily. Follow trends. On Alvimopan 12 mg p.o. twice daily 14 dosages ID: Postoperative antibiotics of the facet 1 g IV every 8 hours and metronidazole 5 mg IV every 8 hours per primary team. Monitor for signs and sequelae of infection FEN: Currently in normal saline at 100 cc an hour Replace electrolytes as clinically indicated MSK: Bilateral knee osteoarthritis/rheumatoid arthritis? PT evaluate and treat Pain management see neuro Access -Left radial arterial line day #0 placed in OR 01/17 -Peripheral IV. Central line if indicated Prophylaxis -GI -lansoprazole -DVT -SCD/enoxaparin Level 2 consult Code Status Full code Discussed Condition With Patient. Care plan discussed and all questions answered. Chano Coleman MD January 17, 2018 13:32
[2018-01-17] MEDS ORDERED: NITROGLYCERIN 2% OINT 1 GM PACKET TOPICAL PRN (13:45)
[2018-01-17] MEDS ORDERED: hydrALAZINE HCL 20 MG/ML VIAL IV PUSH PRN (13:45)
[2018-01-17] MEDS: PCA - TOTAL MG MORPHINE DELIVERED PER SHIFT SCH ×2 (14:00→22:00)
[2018-01-17] MEDS ORDERED: *LABETALOL HCL 100 MG/20 ML VIAL PERIprocedural Use ONLY ONE (14:12)
[2018-01-17] MEDS ORDERED: MORPHINE SULFATE 4 MG/ML INJ IV PUSH PRN (14:30)
[2018-01-17] MEDS ORDERED: ONDANSETRON ODT 4 MG TAB PO PRN (14:30)
[2018-01-17] MEDS ORDERED: MORPHINE SULFATE 30 MG/30 ML PCA IV SCH (14:30)
[2018-01-17] MEDS: ACETAMINOPHEN 1000 MG/100 ML 100 ML IV SCH ×2 (15:49→21:30)
[2018-01-17 16:00] VITALS: BP 166/80; PULSE 70; RESP 17; TEMP 97.8; O2SAT 99
[2018-01-17] MEDS: LABETALOL HCL 100 MG/20 ML VIAL IV PUSH PRN (16:06)
--- NOTE | 2018-01-17 16:50 | EKG ---
Date Performed: 01/17/2018 Time Performed: 07:39:19 PTAGE: 82 years EKG: Sinus rhythm WITH FREQUENT VENTRICULAR PREMATURE COMPLEXES ABNORMAL RHYTHM ECG PREVIOUS TRACING : 03/25/2014 11.10 Since the previous tracing, no significant change noted DOCTOR: Gisell Nelson Interpretating Date/Time 01/17/2018 16:48:27
[2018-01-17 18:00] VITALS: PULSE 70
[2018-01-17] MEDS: metroNIDAZOLE 500 MG INJ 100 ML IV SCH (18:18)
--- NOTE | 2018-01-17 19:47 | MP ---
cc: Cortez Asher MD, Andrew W MD DATE OF OPERATION: 01/17/2018 PREOPERATIVE DIAGNOSES: 1. Colon carcinoma, nearly obstructing. 2. Abdominal pain. 3. History of severe chronic obstructive pulmonary disease. POSTOPERATIVE DIAGNOSES: 1. Colon carcinoma, nearly obstructing. 2. Abdominal pain. 3. History of severe chronic obstructive pulmonary disease. PROCEDURES PERFORMED: 1. Laparoscopic sigmoid colectomy with end colostomy. 2. Mobilization of splenic flexure, laparoscopically. 3. Repair of primary umbilical hernia 1 cm, incidental finding non-incarcerated. OPERATING SURGEON: Mylene Asher MD LINER INSTALLER: Staff. ANESTHESIA: General and regional tap block. BLOOD LOSS: 50 mL COMPLICATIONS: None. FINDINGS: Large bulky 5 cm tumor causing a near complete obstruction clinically with large volume of solid stool impacted prior to the tumor. Intraoperative evaluation by pathology shows grossly negative margins. INDICATIONS FOR PROCEDURE: The patient is an 82-year-old male with a history of COPD, who underwent workup for abdominal pain. A colonoscopy showed an obstructing mass in the sigmoid colon. A scope was unable to be passed past this and the colon was not completely evaluated. The mass was nearly obstructing and impending obstruction was the concern. Biopsies returned adenocarcinoma. Staging scans showed no evidence of metastatic disease. The patient was referred urgently to surgery. After discussion with the patient and his family about recommended management including laparoscopic sigmoid colectomy including possibility of primary anastomosis as well as the need for a temporary colostomy, the patient agreed to undergo the procedure. PROCEDURE IN DETAIL: After undergoing regional tap block, the patient was taken to the operating room and placed in a supine position, placed under general endotracheal anesthesia. The patient was placed in the lithotomy position. The abdomen was shaved, prepped and draped in sterile fashion. Timeout was performed. The abdomen was entered through a Jacobs type technique through the patient's umbilical hernia. There was a small 1 cm umbilical hernia. This was reducible. We made a curvilinear incision with a 15-blade scalpel below this and opened up the hernia sac, giving us access into the abdomen. We placed a 10 mm balloon trocar into the abdomen and insufflated the abdomen. We were then able to place a second 10 mm port in the left lower quadrant as well as two 5 mm ports in the left upper quadrant, all under direct visualization of the laparoscope. We were then able to use the laparoscopic LigaSure to divide the white line of Toldt along the left colon. We continued this up until we mobilized the splenic flexure down from the spleen completely. This gave us significant more stretch on the colon. We then turned our attention back towards the pelvis. There was a large bulky tumor that was in the mid to proximal sigmoid colon. This was partially stuck to the pelvic sidewall and, with minimal dissection, this was able to be pulled off the pelvic sidewall with the LigaSure device. At this point in time, after further evaluation it was very clear that the proximal descending colon was impacted with stool and was inflamed with some acute diverticula and even some gross tearing of the serosa of the colon proximal to the mass. This appeared to be a result of a near complete obstruction of the patient's colon from this mass. It is also of note no evidence of metastatic disease. It was felt that due to the patient having an unprepped colon and due to his age and comorbidities as well as the impending obstruction and the clearly very abnormal tissue proximal to the mass, that a primary anastomosis was not in the patient's best interest and would actually be contraindicated in this case. At this point in time, we used a blue load on the Ryan laparoscopic stapler to divide the sigmoid colon towards the distal portion of the sigmoid colon. A small window was made with the LigaSure underneath the colon in the mesentery and is divided with 1 load. We used the LigaSure as well as 2 vascular white loads on the Ryan stapler to divide the mesentery and taking this down to the sigmoidal artery to get adequate lymphadenectomy. We continued our dissection up out of the pelvis to the true descending colon. After we had performed this, we had a long floppy colon with our specimen and a significant amount of again abnormal colon proximal to the tumor, but adequate healthy tissue to perform an end colostomy. We then made a colostomy incision in the left side of the abdomen about the level of the umbilicus over the rectus. We used the Bovie electrocautery to make a circular incision. We quartered the fat down and opened the external rectus fascia with a Bovie electrocautery. We spread the rectus muscles and opened the posterior rectus sheath. We were able to use a Sarkis to grasp our specimen and deliver it into the field, through our colostomy incision. We did have to make this slightly larger than our planned colostomy incision to remove this large bulky tumor. Of note, we then divided the descending colon with a second blue load on the Ryan stapler. We marked the specimen and passed it off for intraoperative evaluation. This came back grossly negative margins. We then closed some of the fascia of the internal and external rectus fascia with interrupted 0 Vicryl sutures to make it a more appropriate size for a colostomy. This was approximately 1-2 cm on either side. We then brought up our descending colon as an end colostomy. We sutured this to the skin into the fascia with 3-0 Vicryl sutures in a standard Mony type fashion. Of note, just prior to opening the colon and brooking this, we did remove all our ports from our laparoscopic portion of the procedure and closed the umbilical hernia. This was repaired with about approximately 3 interrupted 0 Vicryl sutures. Skin was closed with 4-0 Monocryl and Dermabond at the port sites. A stoma appliance was applied. At this point in time, the patient was discontinued from anesthesia and taken to the PACU in stable condition. The patient tolerated the procedure well. No apparent complications. All counts were correct and I was present and scrubbed for the entire procedure. MD KATIE Trinh/ , 06:15 PM , 07:46 PM
[2018-01-17 20:00] VITALS: BP 164/77; PULSE 66; RESP 18; TEMP 98; O2SAT 98
[2018-01-17] MEDS: RESP: IPRATROPIUM 0.5 MG/2.5 ML NEB NEB SCH (20:44)
[2018-01-17 20:46] VITALS: O2SAT 96
[2018-01-17 22:00] VITALS: PULSE 68
[2018-01-18] VITALS (14 sets, daily range): BP systolic 138–163; BP diastolic 52–73; PULSE 52–88; RESP 17–26; TEMP 97.5–98.1; O2SAT 93–98
[2018-01-18] MEDS: metroNIDAZOLE 500 MG INJ 100 ML IV SCH ×2 (02:00→09:04)
[2018-01-18] MEDS: RESP: IPRATROPIUM 0.5 MG/2.5 ML NEB NEB SCH ×4 (03:20→20:31)
[2018-01-18] MEDS: ACETAMINOPHEN 1000 MG/100 ML 100 ML IV SCH ×2 (03:24→09:03)
[2018-01-18 04:34] LABS: AUTOMATED NEUTROPHIL # 10.1 TH/MM3 (1.8-7.7); BASOPHIL % 0.1 % (0.0-2.0); HEMATOCRIT 35.9 % (39.0-51.0); HEMOGLOBIN 11.3 GM/DL (13.0-17.0); LYMPH % 27.8 % (9.0-44.0); LYMPHOCYTE # 4.3 TH/MM3 (1.0-4.8); MEAN CELL VOLUME 61.8 FL (80.0-100.0); MEAN CORPUSCULAR HEMOGLOBIN 19.4 PG (27.0-34.0); MEAN CORPUSCULAR HGB CONC 31.4 % (32.0-36.0); MEAN PLATELET VOLUME 8.8 FL (7.0-11.0); MONO % 6.3 % (0.0-8.0); NEUT % 65.8 % (16.0-70.0); PLATELET COUNT 156 TH/MM3 (150-450); RED BLOOD COUNT 5.81 MIL/MM3 (4.50-5.90); RED CELL DISTRIBUTION WIDTH 18.6 % (11.6-17.2); WHITE BLOOD COUNT 15.4 TH/MM3 (4.0-11.0)
[2018-01-18 05:08] LABS: BICARBONATE 25.7 MEQ/L (21.0-32.0); CALCIUM 7.8 MG/DL (8.5-10.1); CREATININE 1.12 MG/DL (0.60-1.30)
[2018-01-18] MEDS: PCA - TOTAL MG MORPHINE DELIVERED PER SHIFT SCH ×3 (06:00→22:00)
[2018-01-18] MEDS: SODIUM CHLORIDE 0.9% FLUSH 10 ML FLUSH IV FLUSH SCH ×2 (09:00→20:55)
[2018-01-18] MEDS: LANSOPRAZOLE SOLUTAB 30 MG TAB NG SCH (09:03)
[2018-01-18] MEDS: ALVIMOPAN 12 MG CAPSULE - Post-op dosing PO SCH ×2 (09:03→20:55)
[2018-01-18] MEDS: LISINOPRIL 5 MG TAB PO SCH (09:03)
--- NOTE | 2018-01-18 09:39 | HHI.CCPN ---
Subjective Remarks/Hospital Course This is an 82-year-old male. The admission date is 01/18/2000. Date of consultation 01/17/2018. Past medical history includes COPD, essential hypertension, hyperlipidemia, osteoarthrosis, diabetes mellitus. On 12/14 patient had a colonoscopy with a diagnosis of adenocarcinoma the sigmoid colon by Dr. Rojas. Patient was seen as an outpatient is scheduled for surgery today by Dr. Asher which included laparoscopic resection of the sigmoid colon placement of a colostomy. EBL was 2300. 50 cc EBL. 400 cc urine output. A left radial arterial line was placed. Patient was extubated and is currently hemodynamically stable in PACU. Patient is very hard of hearing. 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 Preoperative labs revealed creatinine 1.3. Elevated white blood count of 14, 000 hemoglobin 12. SUBJECTIVE: 01/18: Currently afebrile. On room air. Pain is controlled with morphine RAILROAD PASSENGER AGENT. Left radial arterial line has been removed. Objective Vital Signs Date Time Temp Pulse Resp B/P (MAP) Pulse Ox O2 Delivery O2 Flow Rate FiO2 01/18/18 06:00 65 01/18/18 06:00 13 01/18/18 04:00 98.0 138/52 (80) 98 01/17/18 20:46 Nasal Cannula 3.00 Intake and Output 01/18/18 01/18/18 01/19/18 08:00 16:00 00:00 Intake Total 1985 ml Output Total 550 ml Balance 1435 ml Result Diagram: 01/18/18 0411 01/18/18 0411 Objective Remarks GENERAL:82-year-old male very hard of hearing resting in bed in no acute distress SKIN: Warm and dry. HEAD: Atraumatic. Normocephalic. EYES: Pupils equal and round. About 3 mm bilaterally and reactive no scleral icterus. No injection or drainage. ENT: No nasal bleeding or discharge. Mucous membranes pink and moist. NECK: Trachea midline. No JVD. CARDIOVASCULAR: Regular rate and rhythm. S1, S2. No S4. No murmur RESPIRATORY: Diminished throughout. Clear to auscultation. Breath sounds equal bilaterally. GASTROINTESTINAL: 3 trocar incisions midline including umbilicus with no active bleeding. Colostomy site is pink with bag in place. : Barker catheter placed with some old dried blood at meatus are clear yellow urine MUSCULOSKELETAL: Extremities with trace bilateral lower extremity edema. No obvious deformities. NEUROLOGICAL: Awake and alert. No obvious cranial nerve deficits. Motor grossly within normal limits. Five out of 5 muscle strength in the arms and legs. Normal speech. Urinary Catheter: Yes Assessment to: Continue Barker insert reason: Prolonged Immobilization Vascular Central Line Catheter: No Assessment to: Continue A/P Assessment and Plan Neuro/Psych: History of polyneuropathy? 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 Pain 3 -5 and 7.5/325 1 tablet every 4 hours as needed pain 6 - 10 Ofirmev 1 g IV every 6 hours 4 dosages per primary CV: Essential hypertension Hyperlipidemia Resume home medications lisinopril 5 mg p.o. daily. Check BMP in a.m. As needed labetalol, hydralazine Nitropaste for elevated blood pressure Previously on fish oil. Not currently on Resp: History of COPD Nasal cannula to maintain saturations greater than or equal to 92% Incentive spirometry while awake Switch ipratropium HFA 2 ipratropium nebulizers every 6 hours scheduled Albuterol aerosols every 2 hours as needed dyspnea GI: Postop day #0 laparoscopic colectomy with colostomy placement secondary to adenocarcinoma Postoperative management per GI. Lansoprazole for GI prophylaxis Bowel management per general surgery Ostomy cares : Barker catheter placed for accurate I's and O's in a critically ill patient Endo: Diabetes mellitus? Sliding scale insulin with Accu-Cheks to maintain euglycemia Renal: Elevated creatinine 1.3 unknown if acute or chronic Recheck BMP in a.m.. Creatinine currently 1.1 improving Monitor urine output Accurate I's and O's Heme: Leukocytosis Normocytic anemia Adenocarcinoma of the colon Monitor CBC daily. Follow trends. On Alvimopan 12 mg p.o. twice daily 14 dosages ID: Postoperative antibiotics of the facet 1 g IV every 8 hours and metronidazole 5 mg IV every 8 hours per primary team. Monitor for signs and sequelae of infection FEN: Currently in normal saline at 30 cc an hour Replace electrolytes as clinically indicated MSK: Bilateral knee osteoarthritis/rheumatoid arthritis? PT evaluate and treat Pain management see neuro Access -Left radial arterial line day #1 placed in OR 01/17 and removed same day -Peripheral IV. Central line if indicated Prophylaxis -GI -lansoprazole -DVT -SCD/enoxaparin Level 2 follow-up Chano Coleman MD January 18, 2018 09:39
--- NOTE | 2018-01-18 10:03 | HHI.PR ---
Subjective Subjective Notes Resting in bed Hard of hearing Objective Vitals/I&O Vital Signs Date Time Temp Pulse Resp B/P (MAP) Pulse Ox O2 Delivery O2 Flow Rate FiO2 01/18/18 06:00 65 01/18/18 06:00 13 01/18/18 04:00 98.0 138/52 (80) 98 01/17/18 20:46 Nasal Cannula 3.00 Labs Laboratory Tests Test 01/18/18 04:11 White Blood Count 15.4 Red Blood Count 5.81 Hemoglobin 11.3 Hematocrit 35.9 Mean Corpuscular Volume 61.8 Mean Corpuscular Hemoglobin 19.4 Mean Corpuscular Hemoglobin Concent 31.4 Red Cell Distribution Width 18.6 Platelet Count 156 Mean Platelet Volume 8.8 Neutrophils (%) (Auto) 65.8 Lymphocytes (%) (Auto) 27.8 Monocytes (%) (Auto) 6.3 Eosinophils (%) (Auto) 0.0 Basophils (%) (Auto) 0.1 Neutrophils # (Auto) 10.1 Lymphocytes # (Auto) 4.3 Monocytes # (Auto) 1.0 Eosinophils # (Auto) 0.0 Basophils # (Auto) 0.0 CBC Comment DIFF FINAL Differential Comment Blood Urea Nitrogen 20 Creatinine 1.12 Random Glucose 116 Calcium Level 7.8 Sodium Level 141 Potassium Level 4.7 Chloride Level 108 Carbon Dioxide Level 25.7 Anion Gap 7 Estimat Glomerular Filtration Rate 63 Cardiovascular: Regular Lungs: Clear Abdomen: Other (colostomy in place without any stool or gas; stoma pink; lap sites c/d/i; mildly distended ) Extremities: Other (mild peripherally edema ) A/P Assessment and Plan 82 year old male POD1 lap sigmoid colectomy with end colostomy for colon cancer -Clear liquids -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 I reviewed and agree with the findings presented. I attest that I had a [id number] encounter with the patient on the same day, and personally performed and documented my assessment and findings in the medical record. stable postop lap sigmoid colectomy, no signs of complications await bowel function, continue clears appreciate ship wirer help OOB ostomy nurse to see med onc to see Mary Carrizales/First Vinay DE LUNA January 18, 2018 10:03 Cortez Asher MD January 18, 2018 12:20
[2018-01-18] MEDS: SODIUM CHLOR 0.9% 1000 ML INJ 1,000 ML IV SCH (10:44)
[2018-01-18] MEDS: ENOXAPARIN SODIUM 40 MG/0.4 ML SYRINGE SQ SCH (11:00)
[2018-01-18] MEDS ORDERED: PROCHLORPERAZINE INJ 10 MG/2 ML VIAL IV PUSH PRN (11:45)
--- NOTE | 2018-01-18 13:10 | PD.WCN.NOT ---
Wound Consult Description: Received consult for new ostomy on abdomen from Mary DE LUNA Communicated with: SHAWN Anthony 3 [facility], and Mary DE LUNA Ostomy Type: Colostomy Surgeon: Cortez Asher MD Date of Surgery: January 17, 2018 Complete: Education materials Educated patient on: Brought ostomy education kit to patient's room. Educated patient on Stoma appearance and how often pouching system is to be changed. Additional information Patient seen on [address] [place] [address] for new ostomy teaching. Patient is hard of hearing and waiting on hearing aids to be brought in from home. Patient had surgery for descending colostomy on 01/17/2018. Delivered education kit for colostomy. Patient to review what to expect after surgery booklet. Assessed stoma through transparent pouching system located on LLQ of abdomen. Stoma presents as oval shaped, moist, and red in color. Small amount of brown liquid is observed in pouch. Wafer and pouch are intact without leaks. Will continue teaching with patient tomorrow when patient has hearing aids. Elaina Fabian [facility] January 18, 2018 13:10
[2018-01-19] VITALS (14 sets, daily range): BP systolic 136–174; BP diastolic 63–75; PULSE 75–100; RESP 17–28; TEMP 97.8–98.2; O2SAT 92–97
[2018-01-19] MEDS: RESP: IPRATROPIUM 0.5 MG/2.5 ML NEB NEB SCH ×4 (04:02→20:05)
[2018-01-19] MEDS: PCA - TOTAL MG MORPHINE DELIVERED PER SHIFT SCH ×3 (06:00→22:00)
[2018-01-19 06:19] LABS: AUTOMATED NEUTROPHIL # 7.8 TH/MM3 (1.8-7.7); BASOPHIL # 0.1 TH/MM3 (0-0.2); BASOPHIL % 0.5 % (0.0-2.0); EOSINOPHIL # 0.1 TH/MM3 (0-0.4); EOSINOPHIL % 0.9 % (0.0-4.0); HEMATOCRIT 36.7 % (39.0-51.0); HEMOGLOBIN 11.2 GM/DL (13.0-17.0); LYMPH % 34.5 % (9.0-44.0); LYMPHOCYTE # 4.8 TH/MM3 (1.0-4.8); MEAN CORPUSCULAR HEMOGLOBIN 18.9 PG (27.0-34.0); MEAN CORPUSCULAR HGB CONC 30.6 % (32.0-36.0); MEAN PLATELET VOLUME 8.6 FL (7.0-11.0); MONO % 7.7 % (0.0-8.0); MONOCYTE # 1.1 TH/MM3 (0-0.9); NEUT % 56.4 % (16.0-70.0); PLATELET COUNT 174 TH/MM3 (150-450); RED BLOOD COUNT 5.92 MIL/MM3 (4.50-5.90); RED CELL DISTRIBUTION WIDTH 18.3 % (11.6-17.2); WHITE BLOOD COUNT 13.8 TH/MM3 (4.0-11.0)
[2018-01-19 06:48] LABS: BICARBONATE 24.1 MEQ/L (21.0-32.0); CALCIUM 8.4 MG/DL (8.5-10.1); CREATININE 1.12 MG/DL (0.60-1.30); MAGNESIUM 2.1 MG/DL (1.5-2.5); PHOSPHORUS 2.2 MG/DL (2.5-4.9)
[2018-01-19] MEDS: LISINOPRIL 5 MG TAB PO SCH (08:07)
[2018-01-19] MEDS: ALVIMOPAN 12 MG CAPSULE - Post-op dosing PO SCH ×2 (08:07→20:41)
[2018-01-19] MEDS: LANSOPRAZOLE SOLUTAB 30 MG TAB NG SCH (08:07)
[2018-01-19] MEDS: SODIUM CHLORIDE 0.9% FLUSH 10 ML FLUSH IV FLUSH SCH ×2 (09:00→21:00)
[2018-01-19] MEDS: ENOXAPARIN SODIUM 40 MG/0.4 ML SYRINGE SQ SCH (10:37)
--- NOTE | 2018-01-19 10:52 | HHI.CCPN ---
Subjective Remarks/Hospital Course This is an 82-year-old male. The admission date is 01/18/2000. Date of consultation 01/17/2018. Past medical history includes COPD, essential hypertension, hyperlipidemia, osteoarthrosis, diabetes mellitus. On 12/14 patient had a colonoscopy with a diagnosis of adenocarcinoma the sigmoid colon by Dr. Rojas. Patient was seen as an outpatient is scheduled for surgery today by Dr. Asher which included laparoscopic resection of the sigmoid colon placement of a colostomy. EBL was 2300. 50 cc EBL. 400 cc urine output. A left radial arterial line was placed. Patient was extubated and is currently hemodynamically stable in PACU. Patient is very hard of hearing. 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 Preoperative labs revealed creatinine 1.3. Elevated white blood count of 14, 000 hemoglobin 12. 01/18: Currently afebrile. On room air. Pain is controlled with morphine SENIOR QUALITY METHODS SPECIALIST. Left radial arterial line has been removed. SUBJECTIVE: 01/19: On 3 L nasal cannula. Morphine SENIOR QUALITY METHODS SPECIALIST discontinued currently in appearance. There is air in his colostomy bag. Very hard of hearing. Tolerating clear liquid diet. Currently being advanced to full liquids. Objective Vital Signs Date Time Temp Pulse Resp B/P (MAP) Pulse Ox O2 Delivery O2 Flow Rate FiO2 01/19/18 10:04 94 Nasal Cannula 3.00 01/19/18 08:00 98.0 84 25 154/65 (94) Intake and Output 01/19/18 01/19/18 01/20/18 08:00 16:00 00:00 Intake Total 988 ml Output Total 575 ml Balance 413 ml Result Diagram: 01/19/18 0539 01/19/18 0539 Objective Remarks GENERAL:82-year-old male very hard of hearing resting in bed in no acute distress on 3 L nasal cannula SKIN: Warm and dry. HEAD: Atraumatic. Normocephalic. EYES: Pupils equal and round. About 3 mm bilaterally and reactive no scleral icterus. No injection or drainage. ENT: No nasal bleeding or discharge. Mucous membranes pink and moist. NECK: Trachea midline. No JVD. CARDIOVASCULAR: Regular rate and rhythm. S1, S2. No S4. No murmur RESPIRATORY: Diminished throughout. Clear to auscultation. Breath sounds equal bilaterally. GASTROINTESTINAL: 3 trocar incisions midline including umbilicus with no active bleeding. Colostomy site is pink with bag in place with air : Barker catheter has been removed with some old dried blood at meatus MUSCULOSKELETAL: Extremities with trace bilateral lower extremity edema. No obvious deformities. NEUROLOGICAL: Awake and alert. No obvious cranial nerve deficits. Motor grossly within normal limits. Five out of 5 muscle strength in the arms and legs. Normal speech. Urinary Catheter: No Assessment to: Continue Vascular Central Line Catheter: No Assessment to: Continue A/P Assessment and Plan Neuro/Psych: History of polyneuropathy? Morphine SENIOR QUALITY METHODS SPECIALIST currently discontinued. Currently on as needed morphine Also written for hydrocodone/acetaminophen 5/325 1 tablet every 4 hours. Pain 3 -5 and 7.5/325 1 tablet every 4 hours as needed pain 6 - 10 Ofirmev 1 g IV every 6 hours 4 dosages per primary CV: Essential hypertension Hyperlipidemia Resume home medications lisinopril 5 mg p.o. daily. Check BMP in a.m. As needed labetalol, hydralazine Nitropaste for elevated blood pressure Previously on fish oil. Not currently on IV fluids been discontinued Resp: History of COPD Nasal cannula to maintain saturations greater than or equal to 92% Incentive spirometry while awake Switch ipratropium HFA 2 ipratropium nebulizers every 6 hours scheduled Albuterol aerosols every 2 hours as needed dyspnea GI: Postop day #2 laparoscopic colectomy with end colostomy placement with mobilization of the splenic flexure laparoscopically and repair primary umbilical hernia 1 cm nonincarcerated secondary to adenocarcinoma Postoperative management per surgery Lansoprazole for GI prophylaxis Bowel management per general surgery Ostomy cares : Barker catheter placed for accurate I's and O's in a critically ill patient Endo: Diabetes mellitus? Sliding scale insulin with Accu-Cheks to maintain euglycemia Renal: Elevated creatinine 1.3 unknown if acute or chronic Recheck BMP in a.m.. Creatinine currently 1.1 improving Monitor urine output Accurate I's and O's Heme: Leukocytosis Normocytic anemia Adenocarcinoma of the colon Monitor CBC daily. Follow trends. On Alvimopan 12 mg p.o. twice daily 14 dosages ID: Postoperative antibiotics cefazolin 1 g IV every 8 hours and metronidazole 500 mg IV every 8 hours per primary team. Monitor for signs and sequelae of infection FEN: Currently in normal saline at 30 cc an hour. This will be discontinued 01/19 Replace electrolytes as clinically indicated MSK: Bilateral knee osteoarthritis/rheumatoid arthritis? PT evaluate and treat Pain management see neuro Access -Peripheral IV. Central line if indicated Prophylaxis -GI -lansoprazole -DVT -SCD/enoxaparin Level 2 follow-up 1 dose of furosemide given today along with 30 mmol potassium phosphorus. Discontinue IV fluids. Okay to transfer out of ICU today. Chano Coleman MD January 19, 2018 10:52
[2018-01-19] MEDS ORDERED: POTASSIUM PHOSPHATE INJ 30 MMOL in SODIUM CHLOR 0.9% 250 ML INJ 250 ML IV ONE (11:00)
[2018-01-19] MEDS ORDERED: FUROSEMIDE 20 MG/2 ML VIAL IV PUSH ONE (11:00)
--- NOTE | 2018-01-19 11:22 | HHI.PR ---
Subjective Subjective Notes Resting in chair Very hard of hearing Dr. Coleman at bedside Objective Vitals/I&O Vital Signs Date Time Temp Pulse Resp B/P (MAP) Pulse Ox O2 Delivery O2 Flow Rate FiO2 01/19/18 10:04 94 Nasal Cannula 3.00 01/19/18 10:00 80 01/19/18 08:00 98.0 25 154/65 (94) Labs Laboratory Tests Test 01/19/18 05:39 White Blood Count 13.8 Red Blood Count 5.92 Hemoglobin 11.2 Hematocrit 36.7 Mean Corpuscular Volume 62.0 Mean Corpuscular Hemoglobin 18.9 Mean Corpuscular Hemoglobin Concent 30.6 Red Cell Distribution Width 18.3 Platelet Count 174 Mean Platelet Volume 8.6 Neutrophils (%) (Auto) 56.4 Lymphocytes (%) (Auto) 34.5 Monocytes (%) (Auto) 7.7 Eosinophils (%) (Auto) 0.9 Basophils (%) (Auto) 0.5 Neutrophils # (Auto) 7.8 Lymphocytes # (Auto) 4.8 Monocytes # (Auto) 1.1 Eosinophils # (Auto) 0.1 Basophils # (Auto) 0.1 CBC Comment DIFF FINAL Differential Comment Blood Urea Nitrogen 17 Creatinine 1.12 Random Glucose 95 Calcium Level 8.4 Phosphorus Level 2.2 Magnesium Level 2.1 Sodium Level 141 Potassium Level 4.4 Chloride Level 108 Carbon Dioxide Level 24.1 Anion Gap 9 Estimat Glomerular Filtration Rate 63 Cardiovascular: Regular Lungs: Clear Abdomen: Other (soft; colostomy with gas in bag; small amount of stool; abdomen soft minimally tender ) Extremities: No edema A/P Assessment and Plan 82 year old male POD2 lap sigmoid colectomy with end colostomy for colon cancer -Advance to full liquids -auto fleet manager following -Pain control----Avant and breakthrough Morphine; 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 I reviewed and agree with the findings presented. I attest that I had a [id number] encounter with the patient on the same day, and personally performed and documented my assessment and findings in the medical record. s/p lap sigmoid resection, stable pain ok OOB ostomy nurse to see Mary Carrizales/First Vinay DE LUNA January 19, 2018 11:22 Cortez Asher MD January 20, 2018 13:45
--- NOTE | 2018-01-19 13:43 | HHI.FF ---
Face to Face Verification Diagnosis: (1) Colon cancer Physical Therapy Order: Evaluate and Treat, Improve ambulation, Strength and gait training Instructions: No restrictions Home Health Nursing Order: Wound care and dressing changes Instructions: Continued colostomy teaching and care I have seen patient Edgard Lima on 01/19/18. My clinical findings support the need for the requested home health care services because: Limited ability to care for self High risk of falls I certify that my clinical findings support that this patient is homebound because: Post-op weakness Mary Carrizales/Assistant Boiler Operator VACUUM CASTER January 19, 2018 13:43
--- NOTE | 2018-01-19 17:40 | MB ---
cc: La Fry MD DATE: 01/19/2018 CHIEF COMPLAINT: 1. Abnormal CBC. 2. Colon cancer. HISTORY OF PRESENT ILLNESS: The patient is an 82-year-old gentleman with a history of hypertension, hyperlipidemia, COPD, arthritis, polyneuropathy and diabetes mellitus as well as obesity, who was admitted to the hospital on 01/17/2018 for surgical resection of known colon adenocarcinoma. On 12/14/2017, he underwent a colonoscopy due to bowel issues under the direction of Dr. Rojas. He was found to have an adenocarcinoma of the sigmoid colon. On 01/17/2018, he underwent a laparoscopic resection of the sigmoid colon under the direction of Dr. Asher. PAST MEDICAL HISTORY: 1. Hypertension. 2. Hyperlipidemia. 3. Chronic obstructive pulmonary disease. 4. Osteoarthritis. 5. Polyneuropathy. 6. Diabetes mellitus. PAST SURGICAL HISTORY: 1. Right total knee arthroplasty. 2. Cataracts. FAMILY HISTORY: Father from a motor vehicle accident. Mother from old age. No known family history of malignancy. SOCIAL HISTORY: The patient lives in the [place] area with his daughter. He has a significant tobacco history and he quit smoking approximately 8 years ago. He denies alcohol or illegal drug use. LABORATORY STUDIES: White blood cell count 13.8; hemoglobin 11.2; platelet count is 174,000 with a differential with an elevated absolute neutrophil count as well as an elevated absolute monocyte count. Also noted on CBC from admission, blast cells, smudge cells, as well as 2+ ovalocytes. Chemistry studies with creatinine of 1.12. Liver function tests including bilirubin within normal limits. Coag studies within normal limits as well. PHYSICAL EXAMINATION: VITAL SIGNS: Temperature 98.2, pulse 89, respiratory rate 27, pulse oximetry is 93% on nasal cannula at 3 liters. GENERAL: Overweight man, in no distress, resting comfortably in bed, sleeping. NECK: Supple. No palpable lymphadenopathy. HEENT: Eyes: No scleral icterus. Oropharynx clear. HEART: Regular rate and rhythm. No murmurs. RESPIRATORY: Clear to auscultation bilaterally. ABDOMEN: Protuberant, but soft and nontender. Bowel sounds present. Unable to palpate organomegaly. EXTREMITIES: No bilateral lower extremity edema. NEUROLOGIC: Grossly nonfocal. PSYCHIATRIC: Appropriate mood and affect. ASSESSMENT AND PLAN: 1. Colon cancer, status post surgical resection. We will await pathology results to determine need for further therapy. Briefly discussed adjuvant therapy with the patient and he reports that he is not interested in proceeding with any chemotherapy. Discussed surveillance with the patient to include office visits and imaging and he reports that he would be amenable. Will order CEA to complete laboratory work up. He will also need CT scan of the chest, abdomen and pelvis to complete staging. 2. Abnormalities on CBC. We will check vitamin studies including vitamin B12, folate, and iron profile. We will order flow cytometry. Peripheral blood smear reveals atypical lymphocytosis. Inpatient hematology service will continue to follow. MD BROCK Carballo/DB , 05:04 PM , 05:39 PM [facility]TD[facility]ill
[2018-01-19 18:50] LABS: % SATURATION IRON PROFILE 9.1 % (20-50); IRON (FE) 21 MCG/DL (65-175); TOTAL IRON BINDING CAPACITY 231 MCG/DL (250-450)
[2018-01-19 19:15] LABS: FERRITIN 207 NG/ML (26-388); FOLATE 11.3 NG/ML (3.1-17.5)
[2018-01-20] VITALS (15 sets, daily range): BP systolic 131–172; BP diastolic 60–80; PULSE 76–90; RESP 18–24; TEMP 98–98.3; O2SAT 92–99
[2018-01-20] MEDS: RESP: IPRATROPIUM 0.5 MG/2.5 ML NEB NEB SCH ×4 (03:20→19:24)
[2018-01-20] MEDS: PCA - TOTAL MG MORPHINE DELIVERED PER SHIFT SCH (04:54)
[2018-01-20 07:18] LABS: HEMATOCRIT 34.7 % (39.0-51.0); HEMOGLOBIN 10.7 GM/DL (13.0-17.0); MEAN CELL VOLUME 61.5 FL (80.0-100.0); MEAN PLATELET VOLUME 8.8 FL (7.0-11.0); PLATELET COUNT 160 TH/MM3 (150-450); RED BLOOD COUNT 5.64 MIL/MM3 (4.50-5.90); RED CELL DISTRIBUTION WIDTH 18.1 % (11.6-17.2); WHITE BLOOD COUNT 11.7 TH/MM3 (4.0-11.0)
[2018-01-20 07:48] LABS: BICARBONATE 27.5 MEQ/L (21.0-32.0); CALCIUM 8.5 MG/DL (8.5-10.1); CREATININE 1.2 MG/DL (0.60-1.30); MAGNESIUM 2.3 MG/DL (1.5-2.5)
[2018-01-20 07:51] LABS: PHOSPHORUS 2.9 MG/DL (2.5-4.9)
[2018-01-20] MEDS: LANSOPRAZOLE SOLUTAB 30 MG TAB NG SCH (09:52)
[2018-01-20] MEDS: ALVIMOPAN 12 MG CAPSULE - Post-op dosing PO SCH ×2 (09:52→21:00)
[2018-01-20] MEDS: LISINOPRIL 5 MG TAB PO SCH (09:52)
[2018-01-20] MEDS: SODIUM CHLORIDE 0.9% FLUSH 10 ML FLUSH IV FLUSH SCH ×2 (09:53→21:01)
[2018-01-20] MEDS: ENOXAPARIN SODIUM 40 MG/0.4 ML SYRINGE SQ SCH (09:53)
--- NOTE | 2018-01-20 14:56 | HHI.PR ---
Subjective Subjective Notes pain ok, no new c/o, eating well Objective Vitals/I&O Vital Signs Date Time Temp Pulse Resp B/P (MAP) Pulse Ox O2 Delivery O2 Flow Rate FiO2 01/20/18 14:25 84 01/20/18 12:10 98.0 18 166/67 (100) 93 01/20/18 08:21 Nasal Cannula 2.00 Labs Laboratory Tests Test 01/20/18 05:34 White Blood Count 11.7 Red Blood Count 5.64 Hemoglobin 10.7 Hematocrit 34.7 Mean Corpuscular Volume 61.5 Mean Corpuscular Hemoglobin 19.0 Mean Corpuscular Hemoglobin Concent 31.0 Red Cell Distribution Width 18.1 Platelet Count 160 Mean Platelet Volume 8.8 Blood Urea Nitrogen 21 Creatinine 1.20 Random Glucose 80 Calcium Level 8.5 Phosphorus Level 2.9 Magnesium Level 2.3 Sodium Level 144 Potassium Level 4.1 Chloride Level 109 Carbon Dioxide Level 27.5 Anion Gap 8 Estimat Glomerular Filtration Rate 58 Carcinoembryonic Antigen 8.0 Cardiovascular: Regular Lungs: Clear Abdomen: Non-distended, Post-op tenderness Extremities: No edema Narrative Exam ostomy viable pink A/P Assessment and Plan 82yo male s/p lap sigmoid resection, stable postop. bill PO needs help to get OOB, may need rehab Cortez Asher MD January 20, 2018 14:56
[2018-01-20] MEDS: TAMSULOSIN HCL 0.4 MG CAP PO SCH (15:00)
--- NOTE | 2018-01-20 18:51 | PD.WCN.NOT ---
Neg Pressure Wound Therapy Wound Location Wound Location: Received consult for new ostomy on abdomen from Mary DE LUNA Ostomy Type: Colostomy Surgeon: Cortez Asher MD Date of Surgery: January 17, 2018 Complete: Education materials Educated patient on: Late entry from 01/19/2018: Educated patient on Colostomy surgery type,diet tips , when to empty pouch,opening, emptying and closing pouch, Stoma color, effluent from a colostomy, when to change pouching system Additional information Late entry from 01/19/2018: Patient seen for follow up teaching for new descending colostomy. Reviewed ostomy teaching booklet on Colostomy surgery. Patient was then shown how to open pouch and empty pouch, clean and close pouch. Emptied ~10 ml of liquid brown effluent.Stoma assessed at this time, Red in color and moist. Stoma was measured at this time 1 1/2 inches long and 1 3/4 inches wide. Stoma is oval in shape and moderately protruding. Skin barrier (wafer) is intact and without leaks. Educated patient on one piece vs 2 piece pouching systems. Elaina Fabian [facility] January 20, 2018 18:51
--- NOTE | 2018-01-20 19:07 | PD.WCN.NOT ---
Ostomy Type: Colostomy Surgeon: Cortez Asher MD Date of Surgery: January 17, 2018 Complete: Starter kit, Education materials, Rx Educated patient on: Changing two piece ostomy appliance, Peristomal skin condition, when to seek medical attention, ostomy support groups Additional information Patient seen today for follow up of Descending colostomy education. Patient daughter in room and reviewed ostomy surgery and appliances with her. Patient states," My ex is going to help me, she took a course in this stuff." Reviewed with the patient when he must change his pouching system and when to empty pouch. Patient then return demonstrated applying 2 piece ostomy appliance on practice stoma. Patient also demonstrated opening pouch, how to empty pouch, cleaning and closing pouch. Two piece ostomy appliance was then changed. Peristomal skin was assessed. Patient noted with small sutured incisions at 3 and 9 o'clock. Stoma lumen is located on the top of stoma. Stoma is red in color. Peristomal skin was cleansed with water and washcloths and patted dry. Skin barrier film spray was applied to peristomal skin. Eakins seal was applied at 3 and 9 o'clock to prevent leaking of ostomy appliance. Moldable 2 3/4 appliance was applied with attached adaptor. Transparent pouch with filter was secured to wafter and adaptor. Starter kit was ordered through [facility]. Script for ostomy supplies is in chart. Elaina Fabian [facility] January 20, 2018 19:07
--- NOTE | 2018-01-20 23:59 | PD.ONC.PN ---
Subjective Subjective Remarks Resing comfortably. Sitting at bedside chair eating dinner. Objective Data Date Time Temp Pulse Resp B/P (MAP) Pulse Ox O2 Delivery O2 Flow Rate FiO2 01/20/18 20:27 98.3 88 24 140/63 (88) 95 01/20/18 19:24 97 Nasal Cannula 2.00 01/20/18 19:00 97 Nasal Cannula 2.00 01/20/18 18:04 82 01/20/18 16:20 01/20/18 16:20 82 01/20/18 15:51 98.3 90 20 145/60 (88) 96 01/20/18 14:25 84 01/20/18 12:26 79 01/20/18 12:10 98.0 84 18 166/67 (100) 93 01/20/18 10:34 88 01/20/18 08:42 88 01/20/18 08:27 98.0 86 20 148/75 (99) 92 01/20/18 08:21 99 Nasal Cannula 2.00 01/20/18 07:49 Nasal Cannula 3.00 01/20/18 04:00 98.2 76 20 172/73 (106) 94 01/20/18 00:30 98.0 81 20 131/80 (97) 97 Result Diagram: 01/20/18 0534 01/20/18 0534 Laboratory Results Laboratory Tests Test 01/20/18 05:34 White Blood Count 11.7 TH/MM3 Red Blood Count 5.64 MIL/MM3 Hemoglobin 10.7 GM/DL Hematocrit 34.7 % Mean Corpuscular Volume 61.5 FL Mean Corpuscular Hemoglobin 19.0 PG Mean Corpuscular Hemoglobin Concent 31.0 % Red Cell Distribution Width 18.1 % Platelet Count 160 TH/MM3 Mean Platelet Volume 8.8 FL Blood Urea Nitrogen 21 MG/DL Creatinine 1.20 MG/DL Random Glucose 80 MG/DL Calcium Level 8.5 MG/DL Phosphorus Level 2.9 MG/DL Magnesium Level 2.3 MG/DL Sodium Level 144 MEQ/L Potassium Level 4.1 MEQ/L Chloride Level 109 MEQ/L Carbon Dioxide Level 27.5 MEQ/L Anion Gap 8 MEQ/L Estimat Glomerular Filtration Rate 58 ML/MIN Carcinoembryonic Antigen 8.0 NG/ML Administered Medications Medications (Trade) Dose Ordered Sig/Larry Route PRN Reason Start Time Stop Time Status Last Admin Dose Admin Alvimopan (Entereg) 12 mg BID PO 01/18/18 09:00 01/24/18 21:01 01/20/18 21:00 Sodium Chloride (NS Flush) 2 ml BID IV FLUSH 01/17/18 12:30 01/20/18 21:01 Lansoprazole (Prevacid Odt) 30 mg DAILY NG 01/18/18 09:00 01/20/18 09:52 Acetaminophen/ Hydrocodone Bitart ([place] 5-325 Mg) 1 tab Q4H PRN PO PAIN SCALE 3 TO 5 01/17/18 12:30 01/19/18 20:41 Acetaminophen/ Hydrocodone Bitart ([place] 7.5-325 Mg) 1 tab Q4H PRN PO PAIN SCALE 6 TO 10 01/17/18 12:30 01/19/18 00:30 Enoxaparin Sodium (Lovenox Inj) 40 mg Q24H SQ 01/18/18 11:00 01/20/18 09:53 Lisinopril (Prinivil) 5 mg DAILY PO 01/18/18 09:00 01/20/18 09:52 Labetalol HCl (Trandate Inj) 10 mg Q1HR PRN IV PUSH SBP>160, DBP>90, HR>65 01/17/18 13:45 01/17/18 16:06 Ipratropium [place] (Atrovent Neb) 0.5 mg Q6HR NEB NEB 01/17/18 16:00 01/20/18 19:24 Prochlorperazine Edisylate (Compazine Inj) 5 mg Q4H PRN IV PUSH breakthrough nausea 01/18/18 11:45 01/18/18 19:11 Tamsulosin HCl (Flomax) 0.4 mg DAILY PO 01/20/18 15:00 01/20/18 15:00 Objective Remarks GENERAL: Well-nourished, well-developed patient. SKIN: Warm and dry. HEAD: Normocephalic. EYES: No scleral icterus. No injection or drainage. RESPIRATORY: No accessory muscle use. GASTROINTESTINAL: Abdomen soft, non-tender, nondistended. EXTREMITIES: No cyanosis, or edema. MUSCULOSKELETAL: Adequate muscle tone. NEUROLOGICAL: No obvious focal deficit. Awake, alert, and oriented x3. hard of hearing PSYCHIATRIC: Appropriate mood and affect; insight and judgment normal. Assessment/Plan Assessment 1. Colon adenocarcinoma: final pathology results pending. Will discuss risks vs benefits of adjuvant chemotherapy with patient when these results return. Given age and comorbid medical conditions and patient wishes will likely not pursue adjuvant chemotherapy. He reports that he had CT of the CAP performed in the outpatient setting. Will obtain these results. 2. Vitamin B12 deficiency: will start on daily oral replacement. 3. CBC abnormalities: will follow up peripheral blood smear. La Fry MD January 20, 2018 23:59
[2018-01-21] VITALS (16 sets, daily range): BP systolic 117–168; BP diastolic 58–87; PULSE 61–169; RESP 15–20; TEMP 98.1–98.8; O2SAT 91–98
[2018-01-21] MEDS: LABETALOL HCL 100 MG/20 ML VIAL IV PUSH PRN ×2 (00:37→17:57)
[2018-01-21] MEDS: SODIUM CHLOR 0.9% 1000 ML INJ 1,000 ML IV SCH (01:45)
[2018-01-21] MEDS ORDERED: METOPROLOL TARTRATE 5 MG/5 ML VIAL ONE (02:11)
[2018-01-21] MEDS ORDERED: LACTATED RINGER'S 1000 ML INJ 1,000 ML IV SCH (02:15)
[2018-01-21] MEDS ORDERED: METOPROLOL TARTRATE 5 MG/5 ML VIAL IV SCH (02:15)
[2018-01-21] MEDS ORDERED: DIGOXIN 0.5 MG/2 ML VIAL IV PUSH ONE (02:30)
--- NOTE | 2018-01-21 02:30 | HHI.CCPN ---
Subjective Remarks/Hospital Course This is an 82-year-old male. The admission date is 01/18/2000. Date of consultation 01/17/2018. Past medical history includes COPD, essential hypertension, hyperlipidemia, osteoarthrosis, diabetes mellitus. On 12/14 patient had a colonoscopy with a diagnosis of adenocarcinoma the sigmoid colon by Dr. Rojas. Patient was seen as an outpatient is scheduled for surgery today by Dr. Asher which included laparoscopic resection of the sigmoid colon placement of a colostomy. EBL was 2300. 50 cc EBL. 400 cc urine output. A left radial arterial line was placed. Patient was extubated and is currently hemodynamically stable in PACU. Patient is very hard of hearing. Patient is currently on a morphine TEA BLENDER. Preoperative labs revealed creatinine 1.3. Elevated white blood count of 14, 000 hemoglobin 12. 01/18: Currently afebrile. On room air. Pain is controlled with morphine TEA BLENDER. Left radial arterial line has been removed. 01/19: On 3 L nasal cannula. Morphine TEA BLENDER discontinued currently in appearance. There is air in his colostomy bag. Very hard of hearing. Tolerating clear liquid diet. Currently being advanced to full liquids. 01/21: Reconsulted for a rapid A. fib with RVR. Other than that patient hemodynamically stable with no complaints. Objective Vital Signs Date Time Temp Pulse Resp B/P (MAP) Pulse Ox O2 Delivery O2 Flow Rate FiO2 01/21/18 00:35 169 134/87 (103) 98 01/21/18 00:17 98.6 17 01/20/18 19:24 Nasal Cannula 2.00 Result Diagram: 01/20/18 0534 01/20/18 0534 Objective Remarks GENERAL:82-year-old male very hard of hearing resting in bed in no acute distress on 3 L nasal cannula SKIN: Warm and dry. HEAD: Atraumatic. Normocephalic. EYES: Pupils equal and round. About 3 mm bilaterally and reactive no scleral icterus. No injection or drainage. ENT: No nasal bleeding or discharge. Mucous membranes pink and moist. NECK: Trachea midline. No JVD. CARDIOVASCULAR: Regular rate and rhythm. S1, S2. No S4. No murmur RESPIRATORY: Diminished throughout. Clear to auscultation. Breath sounds equal bilaterally. GASTROINTESTINAL: 3 trocar incisions midline including umbilicus with no active bleeding. Colostomy site is pink with bag in place with air : Barker catheter has been removed with some old dried blood at meatus MUSCULOSKELETAL: Extremities with trace bilateral lower extremity edema. No obvious deformities. NEUROLOGICAL: Awake and alert. No obvious cranial nerve deficits. Motor grossly within normal limits. Five out of 5 muscle strength in the arms and legs. Normal speech. A/P Assessment and Plan Neuro/Psych: History of polyneuropathy? Morphine TEA BLENDER currently discontinued. Currently on as needed morphine Also written for hydrocodone/acetaminophen 5/325 1 tablet every 4 hours. Pain 3 -5 and 7.5/325 1 tablet every 4 hours as needed pain 6 - 10 Ofirmev 1 g IV every 6 hours 4 dosages per primary CV: Essential hypertension Hyperlipidemia A.Fib with RVR Continue lisinopril 5 mg p.o. daily. Check BMP in a.m. As needed labetalol, hydralazine Nitropaste for elevated blood pressure Previously on fish oil. Not currently on IV fluids x1 bolus Lopressor i.v. x 1 now Digoxin Troponins and ECG to follow Resp: History of COPD Nasal cannula to maintain saturations greater than or equal to 92% Incentive spirometry while awake Switch ipratropium HFA 2 ipratropium nebulizers every 6 hours scheduled Albuterol aerosols every 2 hours as needed dyspnea GI: Postop day #2 laparoscopic colectomy with end colostomy placement with mobilization of the splenic flexure laparoscopically and repair primary umbilical hernia 1 cm nonincarcerated secondary to adenocarcinoma Postoperative management per surgery Lansoprazole for GI prophylaxis Bowel management per general surgery Ostomy cares : Barker catheter placed for accurate I's and O's in a critically ill patient Endo: Diabetes mellitus? Sliding scale insulin with Accu-Cheks to maintain euglycemia Renal: Elevated creatinine 1.3 unknown if acute or chronic Recheck BMP in a.m.. Creatinine currently 1.1 improving Monitor urine output Accurate I's and O's Heme: Leukocytosis Normocytic anemia Adenocarcinoma of the colon Monitor CBC daily. Follow trends. On Alvimopan 12 mg p.o. twice daily 14 dosages ID: Postoperative antibiotics cefazolin 1 g IV every 8 hours and metronidazole 500 mg IV every 8 hours per primary team. Monitor for signs and sequelae of infection FEN: Currently in normal saline at 30 cc an hour. This will be discontinued 01/19 Replace electrolytes as clinically indicated MSK: Bilateral knee osteoarthritis/rheumatoid arthritis? PT evaluate and treat Pain management see neuro Access -Peripheral IV. Central line if indicated Prophylaxis -GI -lansoprazole -DVT -SCD/enoxaparin Level 2 follow-up Lul Galindo MD January 21, 2018 02:30
[2018-01-21] MEDS: METOPROLOL TARTRATE 5 MG/5 ML VIAL IV PUSH PRN ×4 (02:53→16:32)
[2018-01-21 03:07] LABS: AUTOMATED NEUTROPHIL # 4.5 TH/MM3 (1.8-7.7); BASOPHIL # 0.1 TH/MM3 (0-0.2); BASOPHIL % 0.6 % (0.0-2.0); EOSINOPHIL # 0.3 TH/MM3 (0-0.4); HEMOGLOBIN 9.6 GM/DL (13.0-17.0); LYMPH % 40.9 % (9.0-44.0); LYMPHOCYTE # 3.7 TH/MM3 (1.0-4.8); MEAN CORPUSCULAR HEMOGLOBIN 19.2 PG (27.0-34.0); MEAN CORPUSCULAR HGB CONC 30.9 % (32.0-36.0); MEAN PLATELET VOLUME 8.4 FL (7.0-11.0); MONO % 6.4 % (0.0-8.0); MONOCYTE # 0.6 TH/MM3 (0-0.9); NEUT % 49.1 % (16.0-70.0); PLATELET COUNT 139 TH/MM3 (150-450); RED CELL DISTRIBUTION WIDTH 17.9 % (11.6-17.2); WHITE BLOOD COUNT 9.2 TH/MM3 (4.0-11.0)
[2018-01-21] MEDS: RESP: IPRATROPIUM 0.5 MG/2.5 ML NEB NEB SCH ×4 (03:15→17:11)
[2018-01-21 03:43] LABS: ALBUMIN 2.1 GM/DL (3.4-5.0); ALKALINE PHOSPHATASE 49 U/L (45-117); ALT (GPT) 15 U/L (12-78); AST (GOT) 21 U/L (15-37); BICARBONATE 23.8 MEQ/L (21.0-32.0); BLOOD UREA NITROGEN 18 MG/DL (7-18); CALCIUM 7.7 MG/DL (8.5-10.1); CHLORIDE 108 MEQ/L (98-107); CREATININE 0.81 MG/DL (0.60-1.30); GLOMERULAR FILTRATION RATE 91 ML/MIN (>89); GLUCOSE,RANDOM 80 MG/DL (74-106); MAGNESIUM 1.6 MG/DL (1.5-2.5); PHOSPHORUS 1.8 MG/DL (2.5-4.9); SODIUM (NA) 142 MEQ/L (136-145); TOTAL BILIRUBIN ADULT 0.5 MG/DL (0.2-1.0); TOTAL PROTEIN 5.1 GM/DL (6.4-8.2); TROPONIN I 0.02 NG/ML (0.02-0.05)
[2018-01-21] MEDS ORDERED: AMIODARONE INJ 150 MG in DEXTROSE 5% IN WATER 100ML INJ 100 ML IV ONE ×2 (03:45)
[2018-01-21] MEDS: AMIODARONE INJ 450 MG in SODIUM CHLOR 0.9% (EXCEL) INJ 241 ML IV PRN ×2 (04:38→12:00)
[2018-01-21] MEDS ORDERED: ICU - CALL ORDERING PHYSICIAN PRN (04:45)
[2018-01-21] MEDS ORDERED: ICU - POTASSIUM PHOSPHATE 30 MMOL/NS 250 ML IV PRN ×2 (04:45)
[2018-01-21] MEDS ORDERED: ICU - POTASSIUM PHOSPHATE MONOBASIC 500 MG TAB PO PRN (04:45)
[2018-01-21] MEDS ORDERED: ICU - MAGNESIUM OXIDE 400 MG TAB PO PRN (04:45)
[2018-01-21] MEDS ORDERED: ICU - MAGNESIUM SULFATE 4 GM/NS 100 ML IV PRN ×2 (04:45)
[2018-01-21] MEDS ORDERED: ICU - D/C ICU ELECTROLYTE ORDERS PRN (04:45)
[2018-01-21] MEDS ORDERED: POTASSIUM CHLORIDE 25 MEQ EFFERVESCENT TAB PO PRN (04:45)
[2018-01-21] MEDS ORDERED: ICU - SODIUM PHOSPHATE 30 MMOL/NS 250 ML IV PRN ×2 (04:45)
[2018-01-21] MEDS ORDERED: ICU - MAGNESIUM SULFATE 2 GM/NS 100 ML IV PRN ×2 (04:45)
[2018-01-21] MEDS ORDERED: ICU - POTASSIUM CHLORIDE/AQUEOUS SOLN 40 MEQ/100 ML IVPB IV PRN (04:45)
[2018-01-21] MEDS ORDERED: ICU - POTASSIUM CHLORIDE/AQUEOUS SOLN 20 MEQ/100 ML IVPB IV PRN (04:45)
[2018-01-21] MEDS ORDERED: METOPROLOL TARTRATE 25 MG TAB PO SCH (09:00)
[2018-01-21] MEDS: SODIUM CHLORIDE 0.9% FLUSH 10 ML FLUSH IV FLUSH SCH ×2 (09:00→20:49)
[2018-01-21] MEDS: CYANOCOBALAMIN 1,000 MCG TAB PO SCH (09:24)
[2018-01-21] MEDS: TAMSULOSIN HCL 0.4 MG CAP PO SCH (09:24)
[2018-01-21] MEDS: LANSOPRAZOLE SOLUTAB 30 MG TAB NG SCH (09:25)
[2018-01-21] MEDS: ALVIMOPAN 12 MG CAPSULE - Post-op dosing PO SCH ×2 (09:25→20:48)
[2018-01-21] MEDS: LISINOPRIL 5 MG TAB PO SCH ×2 (09:25→20:49)
[2018-01-21] MEDS: ENOXAPARIN SODIUM 40 MG/0.4 ML SYRINGE SQ SCH (10:31)
--- NOTE | 2018-01-21 14:12 | EKG ---
Date Performed: 01/21/2018 Time Performed: 01:18:46 PTAGE: 82 years EKG: PROBABLE ATRIAL FLUTTER WITH RAPID RESPONSE WITH 2:1 CONDUCTION THERE IS ONE ABERRANTLY CO NDUCTED BEAT NONSPECIFIC ST-T CHANGE Abnormal ECG Compared to PREVIOUS TRACING , there is a rhythm change from sinus to atrial flutter. PVCs are no nasima angella present. PREVIOUS TRACING DOCTOR: Tod Case Interpretating Date/Time 01/21/2018 14:12:01
--- NOTE | 2018-01-21 14:14 | EKG ---
Date Performed: 01/21/2018 Time Performed: 06:07:28 PTAGE: 82 years EKG: ATRIAL FIBRILLATION WITH RAPID RESPONSE OCCASIONAL PVCs NONSPECIFIC ST-T CHANGE Abnormal EC G Compared to PREVIOUS TRACING , rhythm has changed from atrial flutter to afib. PREVIOUS TRACING DOCTOR: Tod Case Interpretating Date/Time 01/21/2018 14:13:52
--- NOTE | 2018-01-21 14:15 | EKG ---
Date Performed: 01/21/2018 Time Performed: 10:09:48 PTAGE: 82 years EKG: Sinus rhythm WITH OCCASIONAL VENTRICULAR PREMATURE COMPLEXES BORDERLINE ECG Compared to PREVIOUS TRACING , rhythm has changed from afib to sinus rhythm. PREVIOUS TRACIN2017 06.07 DOCTOR: Tod Case Interpretating Date/Time 01/21/2018 14:14:34
[2018-01-21 17:26] LABS: MAGNESIUM 2.3 MG/DL (1.5-2.5); PHOSPHORUS 3.6 MG/DL (2.5-4.9)
--- NOTE | 2018-01-21 18:08 | HHI.PR ---
Subjective Subjective Notes Patient developed A-fib with RVR early this AM Transferred to [facility] Objective Vitals/I&O Vital Signs Date Time Temp Pulse Resp B/P (MAP) Pulse Ox O2 Delivery O2 Flow Rate FiO2 01/21/18 16:00 98.2 68 15 168/79 (108) 95 01/21/18 10:43 21 01/21/18 07:00 Room Air 01/21/18 04:08 2.00 Labs Laboratory Tests Test 01/21/18 02:49 01/21/18 06:29 01/21/18 10:35 White Blood Count 9.2 Red Blood Count 5.00 Hemoglobin 9.6 Hematocrit 31.0 Mean Corpuscular Volume 62.0 Mean Corpuscular Hemoglobin 19.2 Mean Corpuscular Hemoglobin Concent 30.9 Red Cell Distribution Width 17.9 Platelet Count 139 Mean Platelet Volume 8.4 Neutrophils (%) (Auto) 49.1 Lymphocytes (%) (Auto) 40.9 Monocytes (%) (Auto) 6.4 Eosinophils (%) (Auto) 3.0 Basophils (%) (Auto) 0.6 Neutrophils # (Auto) 4.5 Lymphocytes # (Auto) 3.7 Monocytes # (Auto) 0.6 Eosinophils # (Auto) 0.3 Basophils # (Auto) 0.1 CBC Comment DIFF FINAL Differential Comment Blood Urea Nitrogen 18 Creatinine 0.81 Random Glucose 80 Total Protein 5.1 Albumin 2.1 Calcium Level 7.7 Phosphorus Level 1.8 3.6 Magnesium Level 1.6 2.3 Alkaline Phosphatase 49 Aspartate Amino Transf (AST/SGOT) 21 Alanine Aminotransferase (ALT/SGPT) 15 Total Bilirubin 0.5 Sodium Level 142 144 Potassium Level 4.2 4.0 Chloride Level 108 Carbon Dioxide Level 23.8 Anion Gap 10 Estimat Glomerular Filtration Rate 91 Troponin I 0.02 LESS THAN 0.02 0.02 Abdomen: Non-distended, Non-tender Narrative Exam Colostomy pink A/P Assessment and Plan Assessment and Plan 82yo male s/p lap sigmoid resection. A-fib with RVR, back to sinus rhythm on Amiodarone drip. bill PO Discussed with Dr. Mckenzie; will convert to PO Amiodarone and transfer back to floor in next day or so. Javon Verma MD January 21, 2018 18:08
[2018-01-21] MEDS: METOPROLOL TARTRATE 25 MG TAB PO SCH (20:48)
[2018-01-22] VITALS (12 sets, daily range): BP systolic 129–186; BP diastolic 63–80; PULSE 57–83; RESP 15–24; TEMP 97.8–98.9; O2SAT 93–97
[2018-01-22] MEDS: SODIUM CHLOR 0.9% 1000 ML INJ 1,000 ML IV SCH (01:45)
[2018-01-22] MEDS: AMIODARONE INJ 450 MG in SODIUM CHLOR 0.9% (EXCEL) INJ 241 ML IV PRN (03:35)
[2018-01-22] MEDS: RESP: IPRATROPIUM 0.5 MG/2.5 ML NEB NEB SCH ×4 (03:49→21:28)
[2018-01-22] MEDS: LABETALOL HCL 100 MG/20 ML VIAL IV PUSH PRN (06:34)
--- NOTE | 2018-01-22 07:56 | HHI.CCPN ---
Subjective Remarks/Hospital Course This is an 82-year-old male. The admission date is 01/18/2000. Date of consultation 01/17/2018. Past medical history includes COPD, essential hypertension, hyperlipidemia, osteoarthrosis, diabetes mellitus. On 12/14 patient had a colonoscopy with a diagnosis of adenocarcinoma the sigmoid colon by Dr. Rojas. Patient was seen as an outpatient is scheduled for surgery today by Dr. Asher which included laparoscopic resection of the sigmoid colon placement of a colostomy. EBL was 2300. 50 cc EBL. 400 cc urine output. A left radial arterial line was placed. Patient was extubated and is currently hemodynamically stable in PACU. Patient is very hard of hearing. Patient is currently on a morphine [employer]CH SU[employer]. Preoperative labs revealed creatinine 1.3. Elevated white blood count of 14, 000 hemoglobin 12. 01/18: Currently afebrile. On room air. 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 Left radial arterial line has been removed. 01/19: On 3 L nasal cannula. Morphine [employer]CH SUPER[employer]OR discontinued currently in appearance. There is air in his colostomy bag. Very hard of hearing. Tolerating clear liquid diet. Currently being advanced to full liquids. 01/21: Reconsulted for a rapid A. fib with RVR. Other than that patient hemodynamically stable with no complaints. 01/22: Remains in NSR. Continue lopressor indefinitely and amiodarone PO for 7 days. Transfer OK. Objective Vital Signs Date Time Temp Pulse Resp B/P (MAP) Pulse Ox O2 Delivery O2 Flow Rate FiO2 01/22/18 06:00 70 01/22/18 04:00 98.0 15 129/63 (85) 97 01/21/18 19:38 Nasal Cannula 2.00 01/21/18 10:43 21 Intake and Output 01/22/18 01/22/18 01/23/18 08:00 16:00 00:00 Intake Total 240 ml Output Total 850 ml Balance -610 ml Result Diagram: 01/21/18 0249 01/21/18 1035 Objective Remarks GENERAL:82-year-old male very hard of hearing resting in bed in no acute distress. SKIN: Warm and dry. HEAD: Atraumatic. Normocephalic. EYES: Pupils equal and round. About 2 mm bilaterally and reactive. ENT: No nasal bleeding or discharge. Mucous membranes pink and moist. NECK: Trachea midline. Airway widely patent. CARDIOVASCULAR: Regular rate and rhythm. S1, S2. No S4. No murmur, rub. No JVD. RESPIRATORY: Diminished throughout. Clear to auscultation. Breath sounds equal bilaterally. GASTROINTESTINAL: 3 trocar incisions midline including umbilicus with no active bleeding. Colostomy site is pink with bag in place. MUSCULOSKELETAL: Extremities with trace bilateral lower extremity edema. Warm, well-perfused NEUROLOGICAL: Awake and alert. No obvious cranial nerve deficits. Motor grossly within normal limits. Five out of 5 muscle strength in the arms and legs. Normal speech. A/P Assessment and Plan Neuro/Psych: History of polyneuropathy? Morphine [employer]CH SUPER[employer]OR currently discontinued. Currently on as needed morphine Also written for hydrocodone/acetaminophen 5/325 1 tablet every 4 hours. Pain 3 -5 and 7.5/325 1 tablet every 4 hours as needed pain 6 - 10 Ofirmev 1 g IV every 6 hours 4 dosages per primary CV: Essential hypertension Hyperlipidemia A.Fib with RVR Continue lisinopril 5 mg p.o. daily. Check BMP in a.m. As needed labetalol, hydralazine Nitropaste for elevated blood pressure Previously on fish oil. Not currently on IV fluids x1 bolus Lopressor i.v. x 1 now Digoxin Troponins and ECG to follow Started on Lopressor twice daily and should remain so at discharge. Continue amiodarone 200 mg p.o. daily 7 days then discontinue. Resp: History of COPD Nasal cannula to maintain saturations greater than or equal to 92% Incentive spirometry while awake Switch ipratropium HFA 2 ipratropium nebulizers every 6 hours scheduled Albuterol aerosols every 2 hours as needed dyspnea GI: Postop day #3 laparoscopic colectomy with end colostomy placement with mobilization of the splenic flexure laparoscopically and repair primary umbilical hernia 1 cm nonincarcerated secondary to adenocarcinoma Postoperative management per surgery Lansoprazole for GI prophylaxis Bowel management per general surgery Ostomy cares : Barker catheter placed for accurate I's and O's in a critically ill patient Endo: Diabetes mellitus? Sliding scale insulin with Accu-Cheks to maintain euglycemia Renal: Elevated creatinine 1.3 unknown if acute or chronic Recheck BMP in a.m.. Creatinine currently 1.1 Monitor urine output Accurate I's and O's Heme: Leukocytosis Normocytic anemia Adenocarcinoma of the colon Monitor CBC daily. Follow trends. On Alvimopan 12 mg p.o. twice daily 14 dosages ID: Postoperative antibiotics cefazolin 1 g IV every 8 hours and metronidazole 500 mg IV every 8 hours per primary team. Monitor for signs and sequelae of infection FEN: Replace electrolytes as clinically indicated MSK: Bilateral knee osteoarthritis/rheumatoid arthritis? PT evaluate and treat Pain management see neuro Access -Peripheral IV. Prophylaxis -GI -lansoprazole -DVT -SCD/enoxaparin Overall impression: Patient developed postoperative atrial fibrillation, new onset. He converted while on amiodarone drip infusion. Beta-marcus was started and should be continued indefinitely unless she develops increased wheezing (which is highly unlikely). Hao Dong MD January 22, 2018 07:56
[2018-01-22] MEDS: ALVIMOPAN 12 MG CAPSULE - Post-op dosing PO SCH ×2 (08:31→22:00)
[2018-01-22] MEDS: TAMSULOSIN HCL 0.4 MG CAP PO SCH (08:31)
[2018-01-22] MEDS: METOPROLOL TARTRATE 25 MG TAB PO SCH ×2 (08:31→22:00)
[2018-01-22] MEDS: AMIODARONE 200 MG TAB PO SCH (08:31)
[2018-01-22] MEDS: SODIUM CHLORIDE 0.9% FLUSH 10 ML FLUSH IV FLUSH SCH ×2 (08:32→22:00)
[2018-01-22] MEDS: CYANOCOBALAMIN 1,000 MCG TAB PO SCH (08:32)
[2018-01-22] MEDS: LISINOPRIL 5 MG TAB PO SCH ×2 (08:32→22:00)
[2018-01-22] MEDS: LANSOPRAZOLE SOLUTAB 30 MG TAB NG SCH (08:32)
[2018-01-22] MEDS: ENOXAPARIN SODIUM 40 MG/0.4 ML SYRINGE SQ SCH (11:00)
--- NOTE | 2018-01-22 12:40 | HHI.PR ---
Subjective Subjective Notes feels fine, no complaints. tolerating po Objective Vitals/I&O Vital Signs Date Time Temp Pulse Resp B/P (MAP) Pulse Ox O2 Delivery O2 Flow Rate FiO2 01/22/18 10:00 57 01/22/18 09:25 93 21 01/22/18 08:00 98.8 18 186/80 (115) 01/22/18 07:00 Room Air 01/21/18 19:38 2.00 Abdomen: Non-distended, Post-op tenderness, BS normal Narrative Exam ostomy viable with stool in bag A/P Assessment and Plan s/p diverting colostomy Afib resolved, on po amiodarone transfer back to floor giorgio fajardo tomorrow Cirilo Ordonez MD January 22, 2018 12:40
[2018-01-22] MEDS ORDERED: cloNIDine HCL 0.1 MG TAB PO PRN (13:30)
--- NOTE | 2018-01-22 13:34 | EKG ---
Date Performed: 01/21/2018 Time Performed: 22:18:49 PTAGE: 82 years EKG: Sinus rhythm WITH OCCASIONAL VENTRICULAR PREMATURE COMPLEXES BORDERLINE ECG Since PREVIOUS TRACING , no significant change noted PREVIOUS TRACIN01/21/2018 17.44 DOCTOR: Tod Case Interpretating Date/Time 01/22/2018 13:33:13
--- NOTE | 2018-01-22 13:34 | EKG ---
Date Performed: 01/21/2018 Time Performed: 14:14:10 PTAGE: 82 years EKG: Sinus rhythm NORMAL ECG Compared to PREVIOUS TRACING , PVCs no longer present, otherwise no change. PREVIOUS TRACIN 018 10.09 DOCTOR: Tod Case Interpretating Date/Time 01/22/2018 13:32:27
--- NOTE | 2018-01-22 13:34 | EKG ---
Date Performed: 01/21/2018 Time Performed: 17:44:06 PTAGE: 82 years EKG: Sinus rhythm WITH FREQUENT VENTRICULAR PREMATURE COMPLEXES LOW QRS VOLTAGE IN EXTREMITY LEADS ABNORMAL RHYTHM ECG Compared to PREVIOUS TRACING , PVCs now have returned, otherwise no signficant change. PREVIOUS AILIN N01/21/2018 14.14 DOCTOR: Tod Case Interpretating Date/Time 01/22/2018 13:33:03
[2018-01-23] VITALS: BP 150/70; PULSE 68; PULSE 74; RESP 17; TEMP 98.5; O2SAT 92
[2018-01-23] MEDS: SODIUM CHLOR 0.9% 1000 ML INJ 1,000 ML IV SCH (01:45)
[2018-01-23] MEDS: RESP: IPRATROPIUM 0.5 MG/2.5 ML NEB NEB SCH ×2 (02:58→08:38)
[2018-01-23 04:00] VITALS: BP 155/72; PULSE 66; PULSE 72; RESP 17; TEMP 98.6; O2SAT 94
[2018-01-23 08:00] VITALS: BP 168/77; PULSE 67; RESP 17; TEMP 97.9; O2SAT 93
[2018-01-23] MEDS: SODIUM CHLORIDE 0.9% FLUSH 10 ML FLUSH IV FLUSH SCH (09:00)
[2018-01-23] MEDS: TAMSULOSIN HCL 0.4 MG CAP PO SCH (09:15)
[2018-01-23] MEDS: LANSOPRAZOLE SOLUTAB 30 MG TAB NG SCH (09:15)
[2018-01-23] MEDS: AMIODARONE 200 MG TAB PO SCH (09:15)
[2018-01-23] MEDS: ALVIMOPAN 12 MG CAPSULE - Post-op dosing PO SCH (09:15)
[2018-01-23] MEDS: METOPROLOL TARTRATE 25 MG TAB PO SCH (09:16)
[2018-01-23] MEDS: LISINOPRIL 5 MG TAB PO SCH (09:16)
[2018-01-23] MEDS: CYANOCOBALAMIN 1,000 MCG TAB PO SCH (09:16)
[2018-01-23 10:30] VITALS: PULSE 67
--- NOTE | 2018-01-23 10:33 | HHI.PR ---
Subjective Subjective Notes feels well, wants to go home Objective Vitals/I&O Vital Signs Date Time Temp Pulse Resp B/P (MAP) Pulse Ox O2 Delivery O2 Flow Rate FiO2 01/23/18 08:00 97.9 67 17 168/77 (107) 93 01/22/18 21:28 21 01/22/18 21:00 Room Air 01/21/18 19:38 2.00 Abdomen: Non-distended, Non-tender Extremities: No edema Narrative Exam ostomy viable pink A/P Assessment and Plan 82yo male s/p lap sigmoid resection, stable postop. Afib resolved, needs recommendation for DC meds and fu for Afib set up possible DC tomorrow Cortez Asher MD January 23, 2018 10:33
[2018-01-23] MEDS: ENOXAPARIN SODIUM 40 MG/0.4 ML SYRINGE SQ SCH (11:29)
[2018-01-23 11:50] VITALS: PULSE 67
[2018-01-23 12:00] VITALS: BP 127/59
[2018-01-23] MEDS ORDERED: PANT20 PO (12:09)
[2018-01-23] MEDS ORDERED: METO25TA3 PO (12:09)
[2018-01-23] MEDS ORDERED: TAMS5CAP PO (12:09)
[2018-01-23] MEDS ORDERED: XARE20TA PO (12:11)
--- NOTE | 2018-01-23 12:17 | HHI.PR ---
Subjective Remarks Nursing denies any deterioration since last night. Patient feels his breathing is at baseline., Has no new complaints. Objective Vital Signs Date Time Temp Pulse Resp B/P (MAP) Pulse Ox O2 Delivery O2 Flow Rate FiO2 01/23/18 11:50 67 01/23/18 10:30 67 01/23/18 08:00 97.9 67 17 168/77 (107) 93 01/23/18 04:00 98.6 72 17 155/72 (99) 94 01/23/18 04:00 66 01/23/18 00:00 98.5 74 17 150/70 (96) 92 01/23/18 00:00 68 01/22/18 21:28 95 21 01/22/18 21:00 66 01/22/18 21:00 Room Air 01/22/18 20:00 98.0 70 17 152/72 (98) 95 01/22/18 16:00 98.2 83 17 137/65 (89) 93 01/22/18 14:00 60 I/O 01/22/18 01/22/18 01/22/18 01/23/18 01/23/18 01/23/18 07:00 15:00 23:00 07:00 15:00 23:00 Intake Total 240 ml 140 ml 760 ml 240 ml Output Total 850 ml 450 ml Balance -610 ml 140 ml 760 ml -210 ml Intake Oral 240 ml 760 ml 240 ml IV Total 140 ml Output Urine Total 800 ml 150 ml Stool Total 50 ml 300 ml # Voids 2 Result Diagram: 01/21/18 0249 01/21/18 1035 Objective Remarks Has slightly diminished breath sounds in the bases otherwise has unlabored breathing. Demonstrates good ambulation with walker Heart sounds regular rate rhythm, no murmurs A/P Assessment and Plan Essential hypertension Hyperlipidemia A.Fib with RVR Rhythm is now normal, regular rate. is a candidate for anticoagulation, will discharge the patient on Xarelto and continue metoprolol twice daily. Will stop amiodarone given that the patient has emphysema and is not an ideal candidate for amiodarone. Patient was counseled extensively on the risks and benefits of anticoagulation, has decided to proceed with anticoagulation and notes to follow-up with PCP. To continue home ipratropium for emphysema and follow-up with pulmonology accordingly. Postop day #4 laparoscopic colectomy with end colostomy placement with mobilization of the splenic flexure laparoscopically and repair primary umbilical hernia 1 cm nonincarcerated secondary to adenocarcinoma Ostomy care per general surgery. Lamont Frias MD January 23, 2018 12:17
== END 2018-01-23 15:20 | disposition home health service (06) | DRG 330 ==
LOC: HSDI 06:46 → N03B 14:58 → N03A 01-21 01:14 → N07B 01-22 14:54
PROVIDERS: ADMIT Surgery; ATTEND Surgery
PROC: 0D1M0Z4 Bypass Descending Colon to Cutaneous, Open Approach (ICD-10-PCS; 2018-01-17)
PROC: 0WQF0ZZ Repair Abdominal Wall, Open Approach (ICD-10-PCS; 2018-01-17)
PROC: 07BC4ZX Excision of Pelvis Lymphatic, Percutaneous Endoscopic Approach, Diagnostic (ICD-10-PCS; 2018-01-17)
PROC: 3E0T3BZ Introduction of Anesthetic Agent into Peripheral Nerves and Plexi, Percutaneous Approach (ICD-10-PCS; 2018-01-17)
PROC: 0T9B70Z Drainage of Bladder with Drainage Device, Via Natural or Artificial Opening (ICD-10-PCS; 2018-01-17)
PROC: 0DTN4ZZ Resection of Sigmoid Colon, Percutaneous Endoscopic Approach (ICD-10-PCS; principal; 2018-01-17 08:37)
DX: C18.7 Malignant neoplasm of sigmoid colon (principal); K56.49 Other impaction of intestine; E11.42 Type 2 diabetes mellitus with diabetic polyneuropathy; G62.9 Polyneuropathy, unspecified; I48.91 Unspecified atrial fibrillation; I10 Essential (primary) hypertension; J43.9 Emphysema, unspecified; E53.8 Deficiency of other specified B group vitamins; E78.5 Hyperlipidemia, unspecified; D64.9 Anemia, unspecified; K42.9 Umbilical hernia without obstruction or gangrene; Z87.891 Personal history of nicotine dependence; K57.30 Diverticulosis of large intestine without perforation or abscess without bleeding; E66.9 Obesity, unspecified; M19.90 Unspecified osteoarthritis, unspecified site; H91.90 Unspecified hearing loss, unspecified ear; Z96.651 Presence of right artificial knee joint; Z68.39 Body mass index [BMI] 39.0-39.9, adult; D72.820 Lymphocytosis (symptomatic)
CPT/HCPCS: 80048; 80053; 82378; 82607; 82728; 82746; 83540; 83550; 83735; 84100; 84132; 84295; 84484; 85007; 85025; 85027; 86850; 86900; 86901; 88184; 88185; 88309; 88329; 93005; 94150; 94640; 94664; C9290; J0131; J0282; J0690; J0780; J1100; J1160; J1610; J1650; J1940; J2250; J2270; J2405; J3010; J3475; J7030; J7050; J7120; J7613; J7644

== ENCOUNTER 2018-02-06 11:20 | Emergency (ER) | payer MEDICARE, MEDICAID ==
[~2018-02-06] VITALS: Ht 172.7 cm; Wt 114.0 kg
[~2018-02-06 11:20] MED LIST changes: -DOXY100C PO; +IPRA17I INH; +LISI-519 PO; +METO25TA3 PO; -NORC5TAB PO; +PANT20 PO; -PRED20 PO; +TAMS5CAP PO; +XARE20TA PO
[2018-02-06 11:28] VITALS: BP 154/90; PULSE 168; RESP 18; TEMP 97.4; O2SAT 95
[2018-02-06] MEDS ORDERED: METOPROLOL TARTRATE 5 MG/5 ML VIAL IV PUSH STA ×2 (11:35→11:52)
--- NOTE | 2018-02-06 11:40 | PD ---
HPI Chief Complaint: Cardiac Complaint Time Seen by Provider: 11:22 Travel History International Travel<30 days: No Contact w/Intl Traveler<30days: No History of Present Illness HPI 82-year-old male presents the ER for evaluation of shortness of breath that has been going on for the last week. Patient has history of hypertension and went to his primary care physician for routine visit and told him about the shortness of breath and the PCP sent him here to the ER since the heart rate was in the higher side. Patient denies any history of A. fib and states that he is not taking any blood thinners. Patient states he gets short of breath every time he walks more than "few steps", he reports bilateral leg swelling that has been going on for more than 2 weeks now. PFSH Past Medical History Arthritis: Yes Blood Disorders: No Heart Rhythm Problems: No Cancer: Yes (diagnosed this visit. Colon Cancer) Cardiovascular Problems: Yes High Cholesterol: Yes COPD: Yes Diabetes: Yes Diminished Hearing: No Endocrine: Yes Gastrointestinal Disorders: No Genitourinary: No Hepatitis: No Hiatal Hernia: No Hypertension: Yes Immune Disorder: No Implanted Vascular Access Dvce: Yes Musculoskeletal: No Neurologic: No Psychiatric: No Reproductive: No Respiratory: Yes Thyroid Disease: No Past Surgical History Abdominal Surgery: Yes (colonostomy) Cardiac Surgery: No Ear Surgery: No Endocrine Surgery: No Eye Surgery: Yes (Cataracts) Genitourinary Surgery: Yes (colonostomy) Gynecologic Surgery: No Oral Surgery: No Thoracic Surgery: No Other Surgery: Yes (NASAL POLYPS REMOVED) Social History Alcohol Use: No Tobacco Use: No (quit 8 approx years ago) Substance Use: No Allergies-Medications (Allergen,Severity, Reaction): Coded Allergies: aspirin (Unverified Allergy, Mild, HEART RATE INCREASES, 02/06/18) caffeine (Unverified Allergy, Mild, HEART RATE INCREASES, 02/06/18) Reported Meds & Prescriptions Reported Meds & Active Scripts Active Metoprolol Tartrate 25 Mg Tab 50 Mg PO Q12HR Reported Atrovent HFA 12.9 GM Inh (Ipratropium [place]) 17 Mcg/Actuation Aer 2 Puff INH QID Physical Exam Narrative GENERAL: Alert oriented 3 no acute distress SKIN: Focused skin assessment warm/dry. HEAD: Atraumatic. Normocephalic. EYES: Pupils equal and round. No scleral icterus. No injection or drainage. ENT: No nasal bleeding or discharge. Mucous membranes pink and moist. NECK: Trachea midline. No JVD. CARDIOVASCULAR: Regular rate and rhythm. No murmur appreciated. RESPIRATORY: No accessory muscle use. Clear to auscultation. Breath sounds equal bilaterally. GASTROINTESTINAL: Abdomen soft, non-tender, nondistended. Hepatic and splenic margins not palpable. MUSCULOSKELETAL: No obvious deformities. No clubbing. No cyanosis. No edema. NEUROLOGICAL: Awake and alert. No obvious cranial nerve deficits. Motor grossly within normal limits. Normal speech. PSYCHIATRIC: Appropriate mood and affect; insight and judgment normal. Data Data Last Documented VS Vital Signs Date Time Temp Pulse Resp B/P (MAP) Pulse Ox O2 Delivery O2 Flow Rate FiO2 02/06/18 13:40 145 18 148/89 (108) 93 Room Air 02/06/18 11:28 97.4 Orders Orders Electrocardiogram (02/06/18 11:28) B-Type Natriuretic Peptide (02/06/18 11:28) Ckmb (Isoenzyme) Profile (02/06/18 11:28) Complete Blood Count With Diff (02/06/18 11:28) Comprehensive Metabolic Panel (02/06/18 11:28) D-Dimer (02/06/18 11:28) Troponin I (02/06/18 11:28) Lipase (02/06/18 11:28) Chest, Single Ap (02/06/18 11:28) Metoprolol Tartrate Inj (Lopressor Inj) (02/06/18 11:35) Metoprolol Tartrate Inj (Lopressor Inj) (02/06/18 11:52) Albuterol-Ipratropium Neb (Duoneb Neb) (02/06/18 12:00) Methylprednisolone So Succ Inj (Solumedr (02/06/18 12:00) Ct Pulmonary Angiogram (02/06/18 ) Iohexol 350 Inj (Omnipaque 350 Inj) (02/06/18 13:00) Electrocardiogram (02/06/18 ) Ckmb (Isoenzyme) Profile (02/06/18 13:45) Troponin I (02/06/18 13:45) Labs Laboratory Tests Test 02/06/18 11:30 02/06/18 13:59 White Blood Count 9.4 TH/MM3 Red Blood Count 5.60 MIL/MM3 Hemoglobin 11.4 GM/DL Hematocrit 36.0 % Mean Corpuscular Volume 64.3 FL Mean Corpuscular Hemoglobin 20.4 PG Mean Corpuscular Hemoglobin Concent 31.7 % Red Cell Distribution Width 17.2 % Platelet Count 186 TH/MM3 Mean Platelet Volume 7.8 FL Neutrophils (%) (Auto) 49.5 % Lymphocytes (%) (Auto) 39.5 % Monocytes (%) (Auto) 6.2 % Eosinophils (%) (Auto) 2.9 % Basophils (%) (Auto) 1.9 % Neutrophils # (Auto) 4.6 TH/MM3 Lymphocytes # (Auto) 3.7 TH/MM3 Monocytes # (Auto) 0.6 TH/MM3 Eosinophils # (Auto) 0.3 TH/MM3 Basophils # (Auto) 0.2 TH/MM3 CBC Comment AUTO DIFF Differential Comment AUTO DIFF CONFIRMED D-Dimer Quantitative (PE/DVT) 5.83 MG/L FEU Blood Urea Nitrogen 21 MG/DL Creatinine 1.30 MG/DL Random Glucose 119 MG/DL Total Protein 7.1 GM/DL Albumin 3.2 GM/DL Calcium Level 8.4 MG/DL Alkaline Phosphatase 81 U/L Aspartate Amino Transf (AST/SGOT) 25 U/L Alanine Aminotransferase (ALT/SGPT) 44 U/L Total Bilirubin 1.2 MG/DL Sodium Level 143 MEQ/L Potassium Level 4.0 MEQ/L Chloride Level 111 MEQ/L Carbon Dioxide Level 23.0 MEQ/L Anion Gap 9 MEQ/L Estimat Glomerular Filtration Rate 53 ML/MIN Total Creatine Kinase 48 U/L Troponin I 0.03 NG/ML B-Type Natriuretic Peptide 110 PG/ML Lipase 216 U/L [facility] Medical Decision Making Medical Screen Exam Complete: Yes Emergency Medical Condition: Yes Differential Diagnosis PE, CHF exacerbation, A. fib with RVR. Narrative Course 82-year-old male presents the ER for evaluation of tachycardia and shortness of breath. Patient has history of hypertension but he is not on any medications for A. fib and he was never been diagnosed with A. fib. Here in the ER he has A. fib with RVR that responded well to metoprolol IV 2 times, patient had elevated d-dimer and CAT scan shows PE without saddle embolus. I explained those results with the patient and given his tachycardia and extensive cardiac history I recommended he stays in hospital for 23 hours observation to repeat cardiac enzymes and also possible echo but patient refused to be admitted and wanted to sign AMA multiple attempts to convince the patient to stay for 23 hours observation he refused. I repeated EKG and it is negative, repeat troponin and CEA came B are pending and patient is anxious to go home and he will sign AGAINST MEDICAL ADVICE, patient fully understands the risks of leaving AGAINST MEDICAL ADVICE meanwhile I will put the patient on Xarelto and recommended that he follows up with his primary care physician tomorrow. Patient understands this and agrees to plan of care. Laboratory Tests Test 02/06/18 11:30 02/06/18 13:59 White Blood Count 9.4 TH/MM3 Red Blood Count 5.60 MIL/MM3 Hemoglobin 11.4 GM/DL Hematocrit 36.0 % Mean Corpuscular Volume 64.3 FL Mean Corpuscular Hemoglobin 20.4 PG Mean Corpuscular Hemoglobin Concent 31.7 % Red Cell Distribution Width 17.2 % Platelet Count 186 TH/MM3 Mean Platelet Volume 7.8 FL Neutrophils (%) (Auto) 49.5 % Lymphocytes (%) (Auto) 39.5 % Monocytes (%) (Auto) 6.2 % Eosinophils (%) (Auto) 2.9 % Basophils (%) (Auto) 1.9 % Neutrophils # (Auto) 4.6 TH/MM3 Lymphocytes # (Auto) 3.7 TH/MM3 Monocytes # (Auto) 0.6 TH/MM3 Eosinophils # (Auto) 0.3 TH/MM3 Basophils # (Auto) 0.2 TH/MM3 CBC Comment AUTO DIFF Differential Comment AUTO DIFF CONFIRMED D-Dimer Quantitative (PE/DVT) 5.83 MG/L FEU Blood Urea Nitrogen 21 MG/DL Creatinine 1.30 MG/DL Random Glucose 119 MG/DL Total Protein 7.1 GM/DL Albumin 3.2 GM/DL Calcium Level 8.4 MG/DL Alkaline Phosphatase 81 U/L Aspartate Amino Transf (AST/SGOT) 25 U/L Alanine Aminotransferase (ALT/SGPT) 44 U/L Total Bilirubin 1.2 MG/DL Sodium Level 143 MEQ/L Potassium Level 4.0 MEQ/L Chloride Level 111 MEQ/L Carbon Dioxide Level 23.0 MEQ/L Anion Gap 9 MEQ/L Estimat Glomerular Filtration Rate 53 ML/MIN Total Creatine Kinase 48 U/L Troponin I 0.03 NG/ML B-Type Natriuretic Peptide 110 PG/ML Lipase 216 U/L Last 24 hours Impressions Chest X-Ray 02/06/18 1128 Signed Impressions: CONCLUSION: Bibasilar atelectasis. CT Angiography 02/06/18 0000 Signed Impressions: CONCLUSION: 1. Small volume acute pulmonary emboli bilaterally. No saddle embolus. 2. Small bilateral pleural effusions with associated atelectasis. 3. 5 mm right middle lobe pulmonary nodule. 4. Coronary artery atherosclerotic calcifications. Diagnosis Primary Impression: A-fib Qualified Codes: I48.91 - Unspecified atrial fibrillation Additional Impressions: COPD (chronic obstructive pulmonary disease) Qualified Codes: J44.9 - Chronic obstructive pulmonary disease, unspecified Pulmonary embolism Qualified Codes: I26.99 - Other pulmonary embolism without acute cor pulmonale Scripts Hydrochlorothiazide (Hydrochlorothiazide) 25 Mg Tab 25 MG PO BID, #30 TAB Prov: Gael Francisco MD 02/06/18 Rivaroxaban (Xarelto) 20 Mg Tab 20 MG PO DAILY for Blood Clot Prevention for 30 Days, #30 TAB 0 Refills Prov: Gael Francisco MD 02/06/18 Disposition: 07 AGAINST MEDICAL ADVICE Condition: Stable Gael Francisco MD Feb 06, 2018 11:40
[2018-02-06 11:41] LABS: AUTOMATED NEUTROPHIL # 4.6 TH/MM3 (1.8-7.7); BASOPHIL # 0.2 TH/MM3 (0-0.2); BASOPHIL % 1.9 % (0.0-2.0); EOSINOPHIL # 0.3 TH/MM3 (0-0.4); EOSINOPHIL % 2.9 % (0.0-4.0); HEMOGLOBIN 11.4 GM/DL (13.0-17.0); LYMPH % 39.5 % (9.0-44.0); LYMPHOCYTE # 3.7 TH/MM3 (1.0-4.8); MEAN CELL VOLUME 64.3 FL (80.0-100.0); MEAN CORPUSCULAR HEMOGLOBIN 20.4 PG (27.0-34.0); MEAN CORPUSCULAR HGB CONC 31.7 % (32.0-36.0); MEAN PLATELET VOLUME 7.8 FL (7.0-11.0); MONO % 6.2 % (0.0-8.0); MONOCYTE # 0.6 TH/MM3 (0-0.9); NEUT % 49.5 % (16.0-70.0); PLATELET COUNT 186 TH/MM3 (150-450); RED CELL DISTRIBUTION WIDTH 17.2 % (11.6-17.2); WHITE BLOOD COUNT 9.4 TH/MM3 (4.0-11.0)
[2018-02-06 11:50] LABS: CHLORIDE 111 MEQ/L (98-107); SODIUM (NA) 143 MEQ/L (136-145)
[2018-02-06 11:54] LABS: CALCIUM 8.4 MG/DL (8.5-10.1)
[2018-02-06 11:55] LABS: ALBUMIN 3.2 GM/DL (3.4-5.0); BLOOD UREA NITROGEN 21 MG/DL (7-18); GLUCOSE,RANDOM 119 MG/DL (74-106)
[2018-02-06 11:57] LABS: ALT (GPT) 44 U/L (12-78); AST (GOT) 25 U/L (15-37)
[2018-02-06 11:58] LABS: GLOMERULAR FILTRATION RATE 53 ML/MIN (>89)
[2018-02-06 11:59] LABS: TOTAL BILIRUBIN ADULT 1.2 MG/DL (0.2-1.0); TOTAL PROTEIN 7.1 GM/DL (6.4-8.2)
[2018-02-06 12:00] LABS: ALKALINE PHOSPHATASE 81 U/L (45-117)
[2018-02-06] MEDS ORDERED: RESP: ALBUTEROL 2.5 MG/IPRATROPIUM 0.5 MG NEB (SCH) NEB ONE (12:00)
[2018-02-06] MEDS ORDERED: methylPREDNISolone SOD SUCC 125 MG/2 ML VIAL IV PUSH ONE (12:00)
[2018-02-06 12:03] LABS: TROPONIN I 0.03 NG/ML (0.02-0.05)
--- NOTE | 2018-02-06 12:16 | RADRPT ---
EXAM DATE: 02/06/2018 12:12 PM EDT AGE/SEX: 82 years / Male INDICATIONS: Heart Palpitations CLINICAL DATA: This is the patient's initial encounter. Patient reports that signs and symptoms have been present for 1 day and indicates a pain score of 6/10. MEDICAL/SURGICAL HISTORY: None. None. COMPARISON: [facility] [place], 08/28/2011. . FINDINGS: Bibasilar atelectasis is noted. The heart is stable. No pulmonary edema is noted. CONCLUSION: Bibasilar atelectasis. Electronically signed by: Pedro Sr MD 02/06/2018 12:14 PM EDT
[2018-02-06 12:19] VITALS: BP 140/96; PULSE 119; RESP 18; O2SAT 92
[2018-02-06] MEDS ORDERED: IOHEXOL 350 MG/ML 10 ML VIAL (for RAD DIAG) IVCONTRAST ONE (13:00)
--- NOTE | 2018-02-06 13:19 | RADRPT ---
EXAM DATE: 02/06/2018 1:10 PM EDT AGE/SEX: 82 years / Male INDICATIONS: Shortness of breath for one week. CLINICAL DATA: This is the patient's initial encounter. Patient reports that signs and symptoms have been present for 1 day and indicates a pain score of 0/10. MEDICAL/SURGICAL HISTORY: Carcinoma, colon. Chronic obstructive pulmonary disease. Colostomy. RADIATION DOSE: 20.62 CTDI (mGy) ; Patient body habitus COMPARISON: No prior exams available for comparison. TECHNIQUE: Volumetric scanning was performed using a multi-row detector CT scanner during bolus infu porsha of 69 ml Omnipaque 350 (iohexol) nonionic water-soluble contrast as a single exam dose. The tapan a was post processed with a variety of visualization algorithms including full volume maximum intensi ty projection and sliding thin slab reformation. Using automated exposure control and adjustment of the mA and/or kV according to patient size, radiation dose was kept as low as reasonably achievable t o obtain optimal diagnostic quality images. FINDINGS: Pulmonary Arteries: Acute thrombus observed. This is small volume in nature. Filling defects are not ed within the right middle lobe pulmonary artery as well as the lateral basilar segment pulmonary art ana maría and at the bifurcation point of the segmental branches of the left lower lobe. No large saddle em bolus observed.. Lung: Passive atelectasis is seen adjacent to the pleural fluid. There is a 5 mm pulmonary nodule wi thin the right middle lobe. No acute infiltrate. No pneumothorax.. Effusion: Small posterior layering pleural effusions bilaterally. The right is larger than the left. . Mediastinum: The heart is normal in size. No pericardial effusion. Coronary artery atherosclerotic c alcifications noted. Small anterior mediastinal lymph nodes without adenopathy. Calcified plaque thro ughout the aorta.. Other: The axilla is unremarkable. CONCLUSION: 1. Small volume acute pulmonary emboli bilaterally. No saddle embolus. 2. Small bilateral pleural effusions with associated atelectasis. 3. 5 mm right middle lobe pulmonary nodule. 4. Coronary artery atherosclerotic calcifications. Electronically signed by: Tarun Reilly MD 02/06/2018 1:18 PM EDT
[2018-02-06 13:40] VITALS: BP 148/89; PULSE 145; RESP 18; O2SAT 93
--- NOTE | 2018-02-06 14:55 | EKG ---
Date Performed: 02/06/2018 Time Performed: 11:28:46 PTAGE: 82 years EKG: ATRIAL FLUTTER/TACHYCARDIA WITH RAPID VENTRICULAR RESPONSE WITH ABERRANT CONDUCTION OR VENT RICULAR PREMATURE COMPLEXES ABNORMAL ECG PREVIOUS TRACING 01/21/18 Since the previous tracing, no significant change noted DOCTOR: Jeb Hughes Interpretating Date/Time 02/06/2018 14:51:33
[2018-02-06] MEDS ORDERED: HYDR25TA5 PO (14:58)
[2018-02-06] MEDS ORDERED: XARE20TA PO (14:58)
[2018-02-06 15:10] VITALS: BP 139/95
[2018-02-06 16:15] LABS: TROPONIN I 0.03 NG/ML (0.02-0.05)
--- NOTE | 2018-02-06 19:36 | EKG ---
Date Performed: 02/06/2018 Time Performed: 14:02:42 PTAGE: 82 years EKG: PROBABLE ATRIAL FLUTTER WITH RAPID VENTRICULAR RESPONSE MARKED LEFT AXIS DEVIATION INTRAVEN TRICULAR CONDUCTION DELAY ABNORMAL ECG No significant change from prior electrocardiogram. PREVIOUS TRACING : 02/06/2018 11.28 DOCTOR: Rasta Mendoza Interpretating Date/Time 02/06/2018 19:34:59
== END 2018-02-06 15:11 | disposition left against medical advice (07) ==
LOC: PHED 11:20
DX: I48.91 Unspecified atrial fibrillation (principal); J44.9 Chronic obstructive pulmonary disease, unspecified; I26.99 Other pulmonary embolism without acute cor pulmonale; I48.92 Unspecified atrial flutter; R94.31 Abnormal electrocardiogram [ECG] [EKG]; R00.0 Tachycardia, unspecified; I10 Essential (primary) hypertension; M19.90 Unspecified osteoarthritis, unspecified site; E11.9 Type 2 diabetes mellitus without complications
CPT/HCPCS: 71045; 71275; 80053; 82550; 83690; 83880; 84484; 85025; 85379; 93005; 94664; 96374; 96375; 99285; J2930; Q9967

== ENCOUNTER 2018-03-11 19:55 | Inpatient (IN) ==
[2018-03-11] MEDS ORDERED: Etomidate Inj 40 MG/20 ML Vial IV.PUSH ONE (20:42)
[2018-03-11] MEDS ORDERED: Propofol Inj 500 MG/50 ML Vial ONE (20:50)
[2018-03-11 21:15] LABS: Baso # (Auto) 0.1 th/mm3 (0.0-0.2); Baso % (Auto) 0.5 % (0.0-2.0); Eos % (Auto) 0.5 % (0.0-4.0); Hematocrit 41.3 % (39.0-51.0); Hemoglobin 12.7 gm/dL (13.0-17.0); Lymph # (Auto) 3.1 th/mm3 (1.0-4.8); Lymph % (Auto) 29.8 % (9.0-44.0); Mean Corpuscular Hemoglobin 19.4 pg (27.0-34.0); Mean Corpuscular Volume 63.3 fL (80.0-100.0); Mean Platelet Volume 8.8 fL (7.0-11.0); Mono # (Auto) 0.6 th/mm3 (0.0-0.9); Mono % (Auto) 5.7 % (0.0-8.0); Neut # (Auto) 6.6 th/mm3 (1.8-7.7); Neut % (Auto) 63.5 % (16.0-70.0); Platelet Count 162 th/mm3 (150-450); Red Blood Count 6.53 mil/mm3 (4.50-5.90); Red Cell Distribution Width 19.2 % (11.6-17.2); White Blood Count 10.4 th/mm3 (4.0-11.0)
[2018-03-11 21:19] LABS: ABG Base Excess -12.2 mmol/L (-2-2); ABG PCO2 30 mmHg (38-42); ABG PO2 307 mmHg (61-120)
[2018-03-11] MEDS ORDERED: Bisacodyl 10 MG Supp RECTAL PRN (21:19)
[2018-03-11 21:23] LABS: Activated Partial Thrombo Time 21.7 sec (24.3-30.1); Prothrombin Time 10.5 sec (9.8-11.6)
[2018-03-11 21:25] LABS: Mean Corpuscular HGB Conc 30.7 % (32.0-36.0)
--- NOTE | 2018-03-11 21:28 | P.HPCC ---
History of Present Illness Primary Care Physician: Yfn Myles MD History of Present Illness: 82-year-old male presents with chief complaint of not feeling well, times today. On EMS arrival they found him pale diaphoretic tachycardic and critically ill. The patient has a history of colon cancer. According to nursing staff his family had some concern that he may intentionally took too many blood pressure medication. He was emergently intubated by ED attending for an airway protection due to altered mental status as well as severe hemodynamic instability. The patient is unable to give any additional history. No family available in the emergency department. Inpatient Certification: I certify that the inpatient services were ordered in accordance with Medicare regulations governing the order. This includes certification that hospital inpatient services are reasonable and necessary and in the case of services not specified as inpatient-only under 42 CFR 419.22(n), that they are appropriately provided as inpatient services in accordance to with the 2-midnight benchmark under 43 CFR 412.3(e) Estimated Total Length of Stay (Days): 5 Plans for Post Hospital Care: Not yet determined Review of Systems unobtainable due to endotracheal tube PMFSH - Medical History Medical History: Medical History (Last Updated 03/11/18 @ 21:49 by Yury Benavidez MD) Afib COPD (chronic obstructive pulmonary disease) Colon cancer Colostomy in place HLD (hyperlipidemia) HTN (hypertension) - Tobacco History Smoking Status: Unknown if ever smoked - Alcohol History How Often Do You Have a Drink Containing Alcohol: Unable to Obtain - Substance Use History Substance History: Unable to Obtain Medications and Allergies Active Medications: Active Medications Acetaminophen (Tylenol) 650 mg PO Q6H PRN PRN Reason: PAIN 1-10 AND/OR FEVER >101F Al Hydroxide/Mg Hydroxide (Milk Of Storm Grajeda) 30 ml PO Q12H PRN PRN Reason: Mild Constipation Albuterol (Albuterol Neb (Larry)) 2.5 mg NEB Q2HR NEB PRN PRN Reason: SHORTNESS OF BREATH/WHEEZING Bisacodyl (Dulcolax Supp) 10 mg RECTAL DAILY PRN PRN Reason: SEVERE CONSITIPATION Chlorhexidine Gluconate (Peridex 0.12% Oral Kit) 15 ml OROPHARYNG BID@0800, 2000 LARRY Chlorhexidine Gluconate (Chlorhexidine 2% Cloth) 3 pack TOPICAL DAILY@0400 LARRY Stop: 03/17/18 03:59 Chlorhexidine Gluconate (Chlorhexidine 2% Cloth) 3 pack TOPICAL DAILY@0400 PRN PRN Reason: Extra cloth needed Stop: 03/17/18 03:59 Famotidine (Pepcid Pf Inj) 20 mg IV.PUSH Q12HR LARRY Heparin Sodium (Porcine) (Heparin Inj) 5,000 units SQ Q8H LARRY Albumin Human (Flexbumin 25% Inj) 100 mls @ 60 mls/hr IV.SIG ONCE ONE Stop: 03/11/18 23:39 Sodium Chloride (Ns Inj) 1,000 mls @ 84 mls/hr IV.CONT .[id number] LARRY Lactulose (Lactulose Liq) 30 ml PO DAILY PRN PRN Reason: SEVERE CONSITIPATION Ondansetron HCl (Zofran Inj) 4 mg IV.PUSH Q6H PRN PRN Reason: NAUSEA OR VOMITING Senna/Docusate Sodium (Krystin-Colace) 1 tab PO BID [facility] Sennosides (Senokot) 17.2 mg PO Q12H PRN PRN Reason: Moderate Constipation Sodium Chloride (Ns Flush) 2 ml IV.FLUSH BID [facility] Sodium Chloride (Ns Flush) 2 ml IV.FLUSH PRN PRN PRN Reason: FLUSH AFTER USING IV ACCESS Allergies Allergy/AdvReac Type Severity Reaction Status Date / Time aspirin Allergy Mild HEART RATE Unverified 02/06/18 11:37 INCREASES caffeine Allergy Mild HEART RATE Unverified 02/06/18 11:37 INCREASES Results - Labs CBC & Chem 7: 03/11/18 20:00 03/11/18 20:00 - Imaging Impressions Chest X-Ray 03/11/18 20:06 CONCLUSION: ET tube in a low position 1.7 cm above the kenji. Increased density at the lateral left base representing some mild consolidation , atelectasis and/or effusion. Left internal jugular central line and NG tube in good position. - ABG Attestation: I personally reviewed and interpreted this ABG as follows: Exam - Constitutional severe distress, chronically ill appearing - Routine HEENT Exam Head: Present: normocephalic, atraumatic Eye: Present: PERRL ENT: Present: mucous membranes moist - Routine Neck Exam Present: supple. Absent: JVD, carotid bruit - Routine Respiratory Exam Present: patient mechanically ventilated. Absent: rales, rhonchi, stridor - Routine Cardiovascular Exam Present: S1, S2, irregular rhythm - Routine Abdominal Exam Present: soft, ostomy - Routine Extremities Exam Present: cyanosis. Absent: clubbing, edema - Routine Skin Exam Present: cyanosis, dry, pallor - Routine Neurological Exam Present: plantar reflex. Absent: clonus Caprini VTE Risk Assessment Caprini VTE Risk Assessment: Moderate/High Risk (score >= 2) Caprini Risk Assessment Model: Point Value = 1 Point Value = 2 Point Value = 3 Point Value = 5 Age 41-60 Minor surgery BMI > 25 kg/m2 Swollen legs Varicose veins or History of unexplained or recurrent spontaneous Oral contraceptives or hormone replacement Sepsis (< 1 month) Serious lung disease, including pneumonia (< 1 month) Abnormal pulmonary function Acute myocardial infarction Congestive heart failure (< 1 month) History of inflammatory bowel disease Medical patient at bed rest Age 61-74 Arthroscopic surgery Major open surgery (> 45 min) Laparoscopic surgery (> 45 min) Malignancy Confined to bed (> 72 hours) Immobilizing plaster cast Central venous access Age >= 75 History of VTE Family history of VTE Factor V Leiden Prothrombin [id number] Lupus anticoagulant Anticardiolipin antibodies Elevated serum homocysteine Heparin-induced thrombocytopenia Other congenital or acquired thrombophilia Stroke (< 1 month) Elective arthroplasty Hip, pelvis, or leg fracture Acute spinal cord injury (< 1 month) Prophylaxis Regimen: Total Risk Factor Score Risk Level Prophylaxis Regimen 0-1 Low Early ambulation 2 Moderate Order ONE of the following: *Sequential Compression Device (SCD) *Heparin 5000 units SQ BID 3-4 Higher Order ONE of the following medications: *Heparin 5000 units SQ TID *Enoxaparin/Lovenox 40 mg SQ daily (WT < 150 kg, CrCl > 30 mL/min) *Enoxaparin/Lovenox 30 mg SQ daily (WT < 150 kg, CrCl > 10-29 mL/min) *Enoxaparin/Lovenox 30 mg SQ BID (WT < 150 kg, CrCl > 30 mL/min) AND/OR *Sequential Compression Device (SCD) 5 or more Highest Order ONE of the following medications: *Heparin 5000 units SQ TID (Preferred with Epidurals) *Enoxaparin/Lovenox 40 mg SQ daily (WT < 150 kg, CrCl > 30 mL/min) *Enoxaparin/Lovenox 30 mg SQ daily (WT < 150 kg, CrCl > 10-29 mL/min) *Enoxaparin/Lovenox 30 mg SQ BID (WT < 150 kg, CrCl > 30 mL/min) AND *Sequential Compression Device (SCD) Assessment and Plan - Assessment and Plan Plan: Respiratory failure -Intubated for an airway protection -Vent bundle -No weaning until neurologically and hemodynamically stable -DuoNeb scheduled and as needed COPD -No exacerbation -No indication for steroids -DuoNeb scheduled and as needed Severe metabolic acidosis -Non-anion gap -CT abdomen and pelvis dated -Panculture to rule out sepsis -Lactic acidosis -IV fluid hydration -Sodium bicarbonate Hypotension -Possible antihypertensive meds overdose -Central line and A-line placed in the ED -Levophed to keep map above 65 -Telemetry -2D echo pending -Series of troponins and EKGs to rule out ACS -Stress dose steroids Acute kidney injury -Strict I's and O's -Monitor creatinine and electrolytes -IV fluid hydration Atrial fibrillation -Rate controlled -Telemetry DVT GI prophylaxis -Teds SCDs -Heparin -Pepcid Critical Care: The total critical care time was 35 minutes. Time to perform other separately billable procedures was not included in the critical care time.
--- NOTE | 2018-03-11 21:28 | XR ---
EXAM DATE: 03/11/2018 9:23 PM EDT AGE/SEX: 82 years / Male INDICATIONS: Post intubation and central line placement. CLINICAL DATA: This is the patient's initial encounter. Patient reports that signs and symptoms have been present for 1 day and indicates a pain score of Nonresponsive. MEDICAL/SURGICAL HISTORY: . Carcinoma, colon. Chronic obstructive pulmonary disease. . Colost jonny. COMPARISON: [facility], CHEST SINGLE AP, 02/06/2018. . FINDINGS: The patient is intubated with the tip of ET tube just above the kenji by 1.7 cm. There is an NG tube in place with the tip directed into the stomach. There is a left internal jugular central line in pl maribel with tip overlying the SVC. The heart size is mildly enlarged. A pneumothorax is not seen. There is increased density at the lateral left base at the left costophrenic angle region. The right lung i s clear. CONCLUSION: ET tube in a low position 1.7 cm above the kenji. Increased density at the lateral left base representing some mild consolidation, atelectasis and/or e ffusion. Left internal jugular central line and NG tube in good position. Electronically signed by: Goyo Raines MD 03/11/2018 9:27 PM EDT
[2018-03-11] MEDS ORDERED: Sod Chloride 0.9% Inj 1,000 ML IV.CONT SCH (21:30)
[2018-03-11 21:34] LABS: ABG Base Excess -13.5 mmol/L (-2-2); ABG PCO2 39 mmHg (38-42); ABG PO2 152 mmHg (61-120)
[2018-03-11 21:38] LABS: Troponin I 0.02 ng/mL (0.02-0.05)
[2018-03-11 21:39] LABS: Magnesium 2.1 mg/dL (1.5-2.5)
--- NOTE | 2018-03-11 21:42 | ED ---
HPI General Chief complaint: Syncope Stated complaint: cardiac/evac Time Seen by Provider: 03/11/18 19:59 Source: EMS and old records reviewed Mode of arrival: EMS Limitations: physical limitation History of Present Illness HPI narrative: Is an 79-year-old male presents emergency department reported history of not feeling well, times today. On EMS arrival they found him pale diaphoretic tachycardic and critically ill. Is a history of colon cancer. According to nursing staff his family had some concern that he may since but this is really unverified at this point. Patient is unable to give significant additional history. Family is on the bedside yet. Related Data Allergies Allergy/AdvReac Type Severity Reaction Status Date / Time aspirin Allergy Mild HEART RATE Unverified 02/06/18 11:37 INCREASES caffeine Allergy Mild HEART RATE Unverified 02/06/18 11:37 INCREASES Review of Systems ROS Unobtainable due to endotracheal tube and unobtainable due to mental condition PMFSH Medical History Medical History Afib (Acute) COPD (chronic obstructive pulmonary disease) (Acute) Colon cancer (Acute) Colostomy in place (Acute) HLD (hyperlipidemia) (Acute) HTN (hypertension) (Acute) Social History Social History Recent Travel in [facility] within the Last 8 Weeks: No Recent Out of Country Travel within the Last 8 Weeks: No Exam Narrative Exam Narrative: GENERAL: Critically ill 82-year-old man, shocky with poor perfusion. SKIN: Extremely pale, mottled and cool. HEAD: Atraumatic. Normocephalic. EYES: Pupils equal and round. No scleral icterus. No injection or drainage. ENT: No nasal bleeding or discharge. Mucous membranes pink and moist. NECK: Trachea midline. No JVD. CARDIOVASCULAR: Weak pulses, thready at best. Heart rates on the slower side. No appreciable murmurs. RESPIRATORY: Mild respiratory distress. Coarse breath sounds, no obvious rales or rhonchi. GASTROINTESTINAL: Obese and rotund. No significant tenderness. MUSCULOSKELETAL: No obvious deformities. Minimal symmetric edema. NEUROLOGICAL: Awake and alert. No obvious cranial nerve deficits. Motor grossly within normal limits. Normal speech. PSYCHIATRIC: Anxious. Procedures Arterial Line Time Out Performed: No Size (Gauge): 18 Technique Used: guide wire technique Post-Procedure: line sutured into place Patient Tolerated Procedure: well and no complications Site: right and femoral Catheter Insertion (Urinary) Date of Insertion: 03/11/18 Time of Insertion: 21:51 Replacement of catheter present on admission: No Reason for placing indwelling catheter: Hourly intake/output Bladder scan/ultrasound used before catheterization: No Antiseptic solution prep: Povidone-Iodine Topical anesthesia used: No Catheter type/location: Indwelling Urethral Catheter Size (Burmese): 18 Catheter balloon size (mL): 10 Catheter balloon amount: 10 Results: successfully catheterized-immediate flow Procedure performed: without complications Intubation Time Out Performed: No Sedative: etomidate Mg Given: 20 Paralytic: succinylcholine Mg Given: 100 Laryngoscope: Armendariz ET Tube Size: 8 ET Tube Uncuffed: No Tube Secured Depth (cm): 24 Tube Secured Location: teeth Tube Placement Confirmation: visualized tube passing through cords, equal breath sounds bilaterally, no breath sounds over epigastrium and confirmation by capnometry Patient Tolerated Procedure: no complications Critical Care Time Critical Care Time: Yes Total Critical Care Time: 60 Attestation: Aggregate critical care time was 60 minutes. Time to perform other separately billable procedures was not included in the critical care time. My time did not include minutes spent treating any other patients simultaneously or on activities that did not directly contribute to the patient's treatment. The services I provided to this patient were to treat and/or prevent clinically significant deterioration that could result in: , shock, worsening respiratory failure, unrecognized hemorrhage, and organized PE, other. I provided critical care services requiring my management, as noted below: Chart data review, documentation time, medication orders and management, vital sign assessments/reviewing monitor data, ordering and reviewing lab tests, ordering and interpreting/reviewing x-rays and diagnostic studies, care of the patient and discussion of the patient with the admitting physicians. Medical Decision Making MDM Narrative Medical decision making narrative: 82 year-old male presented in profound shock of unclear etiology. Symptoms no direct etiology. Initial thought was for a GI bleed. We guaiaced his ostomy was negative. He was profoundly pale and appeared anemic. He was given 2 units of emergency release blood. He was given push doses of epinephrine, as well as placed on norepinephrine drip with some improvement in blood pressure. Arterial line was placed. Bedside ultrasound showed moderately reduced EF with plethoric IVC. Patient remained in significant distress, with worsening respiratory distress, and evidence of shock. Decision was made to proceed with intubation. Intubation was accomplished uneventfully. He was given succinylcholine and etomidate as well as a small portion of epinephrine given his persistent hypertension at the time of intubation. We called the critical care medicine doctor, Dr. Galindo, who came to the bedside and assumed care of the patient as well. He placed central line , will take the patient to the ICU. Lab Data Lab results reviewed: Yes I reviewed the patient's lab results. Result diagrams: 03/11/18 20:00 03/11/18 20:00 Lab Results 03/11/18 03/11/18 03/11/18 Range/Units 20:00 20:00 20:00 WBC 10.4 (4.0-11.0) th/mm3 RBC 6.53 H (4.50-5.90) mil/mm3 Hgb 12.7 L (13.0-17.0) gm/dL Hct 41.3 (39.0-51.0) % MCV 63.3 L (80.0-100.0) fL MCH 19.4 L (27.0-34.0) pg MCHC 30.7 L (32.0-36.0) % RDW 19.2 H (11.6-17.2) % Plt Count 162 (150-450) th/mm3 MPV 8.8 (7.0-11.0) fL Neut % (Auto) 63.5 (16.0-70.0) % Lymph % (Auto) 29.8 (9.0-44.0) % [place] % (Auto) 5.7 (0.0-8.0) % Eos % (Auto) 0.5 (0.0-4.0) % Baso % (Auto) 0.5 (0.0-2.0) % Neut # (Auto) 6.6 (1.8-7.7) th/mm3 Lymph # (Auto) 3.1 (1.0-4.8) th/mm3 [place] # (Auto) 0.6 (0.0-0.9) th/mm3 Eos # (Auto) 0.0 (0.0-0.4) th/mm3 Baso # (Auto) 0.1 (0.0-0.2) th/mm3 WBC Differential . Differential Comment Auto diff final PT 10.5 (9.8-11.6) sec INR 1.0 Ratio APTT 21.7 L (24.3-30.1) sec Puncture Site Patient Temperature O2 Saturation (90-100) % ABG pH (7.380-7.420) ABG pCO2 (38-42) mmHg ABG pO2 (61-120) mmHg ABG HCO3 (22-26) mmol/L ABG O2 Content (12.0-20.0) Vol % ABG Base Excess (-2-2) mmol/L ABG Methemoglobin (0-2) % Hemoglobin (12.0-16.0) G/DL Carboxyhemoglobin (0-4) % O2 Delivery Device Liter Flow L/M Vent Setting Inspired O2 % Critical Value Lactic Acid (0.4-2.0) mmol/L Magnesium 2.1 (1.5-2.5) mg/dL Troponin I 0.02 (0.02-0.05) ng/mL Blood Type MTS Gel Crossmatch 03/11/18 03/11/18 03/11/18 Range/Units 20:00 20:00 20:27 WBC (4.0-11.0) th/mm3 RBC (4.50-5.90) mil/mm3 Hgb (13.0-17.0) gm/dL Hct (39.0-51.0) % MCV (80.0-100.0) fL MCH (27.0-34.0) pg MCHC (32.0-36.0) % RDW (11.6-17.2) % Plt Count (150-450) th/mm3 MPV (7.0-11.0) fL Neut % (Auto) (16.0-70.0) % Lymph % (Auto) (9.0-44.0) % [place] % (Auto) (0.0-8.0) % Eos % (Auto) (0.0-4.0) % Baso % (Auto) (0.0-2.0) % Neut # (Auto) (1.8-7.7) th/mm3 Lymph # (Auto) (1.0-4.8) th/mm3 [place] # (Auto) (0.0-0.9) th/mm3 Eos # (Auto) (0.0-0.4) th/mm3 Baso # (Auto) (0.0-0.2) th/mm3 WBC Differential Differential Comment PT (9.8-11.6) sec INR Ratio APTT (24.3-30.1) sec Puncture Site Art line Patient Temperature 98.6 O2 Saturation 99 (90-100) % ABG pH 7.28 L* (7.380-7.420) ABG pCO2 30 L (38-42) mmHg ABG pO2 307 H (61-120) mmHg ABG HCO3 13 L* (22-26) mmol/L ABG O2 Content 17.5 (12.0-20.0) Vol % ABG Base Excess -12.2 L (-2-2) mmol/L ABG Methemoglobin 0.4 (0-2) % Hemoglobin 12.1 (12.0-16.0) G/DL Carboxyhemoglobin 0.6 (0-4) % O2 Delivery Device Nrb Liter Flow 15.00 L/M Vent Setting Inspired O2 100 % Critical Value Yes Lactic Acid 4.4 H* (0.4-2.0) mmol/L Magnesium (1.5-2.5) mg/dL Troponin I (0.02-0.05) ng/mL Blood Type B Positive MTS Gel Crossmatch See Detail 03/11/18 Range/Units 21:19 WBC (4.0-11.0) th/mm3 RBC (4.50-5.90) mil/mm3 Hgb (13.0-17.0) gm/dL Hct (39.0-51.0) % MCV (80.0-100.0) fL MCH (27.0-34.0) pg MCHC (32.0-36.0) % RDW (11.6-17.2) % Plt Count (150-450) th/mm3 MPV (7.0-11.0) fL Neut % (Auto) (16.0-70.0) % Lymph % (Auto) (9.0-44.0) % [place] % (Auto) (0.0-8.0) % Eos % (Auto) (0.0-4.0) % Baso % (Auto) (0.0-2.0) % Neut # (Auto) (1.8-7.7) th/mm3 Lymph # (Auto) (1.0-4.8) th/mm3 [place] # (Auto) (0.0-0.9) th/mm3 Eos # (Auto) (0.0-0.4) th/mm3 Baso # (Auto) (0.0-0.2) th/mm3 WBC Differential Differential Comment PT (9.8-11.6) sec INR Ratio APTT (24.3-30.1) sec Puncture Site Art line Patient Temperature 98.6 O2 Saturation 97 (90-100) % ABG pH 7.17 L* (7.380-7.420) ABG pCO2 39 (38-42) mmHg ABG pO2 152 H (61-120) mmHg ABG HCO3 13 L* (22-26) mmol/L ABG O2 Content 19.5 (12.0-20.0) Vol % ABG Base Excess -13.5 L (-2-2) mmol/L ABG Methemoglobin 0.5 (0-2) % Hemoglobin 14.1 (12.0-16.0) G/DL Carboxyhemoglobin 0.4 (0-4) % O2 Delivery Device Vent Liter Flow L/M Vent Setting Prvc/ac Inspired O2 50 % Critical Value Yes Lactic Acid (0.4-2.0) mmol/L Magnesium (1.5-2.5) mg/dL Troponin I (0.02-0.05) ng/mL Blood Type MTS Gel Crossmatch Imaging Data Radiologist's impression: Chest X-Ray 03/11/18 20:06 CONCLUSION: ET tube in a low position 1.7 cm above the kenji. Increased density at the lateral left base representing some mild consolidation , atelectasis and/or effusion. Left internal jugular central line and NG tube in good position. Discharge Plan Discharge Disposition Patient Disposition: 30 Still Patient Physicians Team ED Provider: Yury Benavidez Primary Care Provider: Yfn Myles Attending Provider: Lul Galindo ED Status: Admitted Patient
[2018-03-11 21:55] LABS: Alanine Aminotransferase 51 U/L (12-78)
[2018-03-11 21:58] LABS: Alkaline Phosphatase 71 U/L (45-117); Total Protein 6.6 g/dL (6.4-8.2)
[2018-03-11] MEDS ORDERED: Albumin Human 25% Inj 100 ML IV.SIG ONE (22:00)
[2018-03-11 22:02] LABS: Albumin 3.2 g/dL (3.4-5.0); Anion Gap 15 meq/L (5-15); Aspartate Aminotransferase 69 U/L (15-37); Blood Urea Nitrogen 39 mg/dL (7-18); Calcium 8.8 mg/dL (8.5-10.1); Carbon Dioxide 17.1 meq/L (21.0-32.0); Chloride 110 meq/L (98-107); Glomerular Filtration Rate 25 mL/min (>89); Glucose,Random 200 mg/dL (74-106); Sodium 142 meq/L (136-145)
[2018-03-11 22:06] LABS: Potassium 5.4 meq/L (3.5-5.1)
--- NOTE | 2018-03-11 22:32 | P.PCN ---
Date of procedure: 03/11/18 Pre-op diagnosis: Hypotension Post-op diagnosis: same Procedure: Central line placement A time-out was completed verifying correct patient, procedure, site, positioning , and special equipment if applicable. The patient was placed in a dependent position appropriate for central line placement based on the vein to be cannulated. The patients left neck was prepped and draped in sterile fashion. 1 % Lidocaine was used to anesthetize the surrounding skin area. A triple lumen 9 Niuean Cordis catheter was introduced into the the internal jugular vein using the Seldinger technique and under ultrasound guidance. The catheter was threaded smoothly over the guide wire and appropriate blood return was obtained. Each lumen of the catheter was evacuated of air and flushed with sterile saline. The catheter was then sutured in place to the skin and a sterile dressing applied. Perfusion to the extremity distal to the point of catheter insertion was checked and found to be adequate. Estimated Blood Loss: 1ml The patient tolerated the procedure well and there were no complications. Condition: critical Disposition: ICU
[2018-03-11] MEDS: Propofol 1000 mg/100 ml Inj 1,000 MG/100 ML BOTTLE IV.CONT PRN (22:45)
[2018-03-11] MEDS ORDERED: Sodium Bicarbonate 8.4% Inj 50 MEQ/50 ML Syringe IV.CONT ONE (22:58)
[2018-03-11] MEDS ORDERED: Atropine Inj 1 MG/10 ML Syringe IV.PUSH ONE (22:58)
[2018-03-12] MEDS: Sodium Bicarbonate 8.4% Inj 150 MEQ in Sodium Chloride 0.45 % Inj 850 ML IV.CONT SCH ×2 (00:45→07:49)
--- NOTE | 2018-03-12 00:53 | CT ---
EXAM DATE: 03/12/2018 12:36 AM EDT AGE/SEX: 82 years / Male INDICATIONS: Seizure. Respiratory failure. CLINICAL DATA: This is the patient's initial encounter. Patient reports that signs and symptoms have been present for 1 day and indicates a pain score of Nonresponsive. MEDICAL/SURGICAL HISTORY: Carcinoma, colon. Chronic obstructive pulmonary disease. Hypertension. Colostomy. RADIATION DOSE: 44.24 CTDI (mGy) COMPARISON: [facility] [place] BRAIN [place]/O CONTRAST, 08/28/2011. . TECHNIQUE: CT of the head without contrast. Using automated exposure control and adjustment of the mA and/or kV according to patient size, radiation dose was kept as low as reasonably achievable to ob tain optimal diagnostic quality images. DICOM format image data is available electronically for revi ew and comparison. FINDINGS: The ventricles are symmetric and normal in appearance. No abnormal extra-axial fluid accumulation is identified. There is no evidence of intracranial hemorrhage or mass. There is nothing to suggest acut e infarction. There is mucosal disease in the facial sinuses. CONCLUSION: No acute intracranial findings. Electronically signed by: Goyo Wren MD 03/12/2018 12:52 AM EDT
--- NOTE | 2018-03-12 01:08 | CT ---
EXAM DATE: 03/12/2018 12:41 AM EDT AGE/SEX: 82 years / Male INDICATIONS: Abdominal pain. Respiratory failure. CLINICAL DATA: This is the patient's initial encounter. Patient reports that signs and symptoms have been present for 1 day and indicates a pain score of Nonresponsive. MEDICAL/SURGICAL HISTORY: Carcinoma, colon. Chronic obstructive pulmonary disease. Hypertensi on. Colostomy. RADIATION DOSE: 17.00 CTDI (mGy) COMPARISON: [facility], CT ABDOMEN & PELVIS W CONTRAST, 03/04/2017. . TECHNIQUE: Multiple contiguous axial images were obtained through the abdomen. Images were obtained using multiple row detector helical technique. Using automated exposure control and adjustment of the mA and/or kV according to patient size, radiation dose was kept as low as reasonably achievable to o btain optimal diagnostic quality images. DICOM format image data is available electronically for rev iew and comparison. FINDINGS: Lower Lungs: Mild atelectasis or infiltrate in the lung bases. Liver: The liver has a homogeneous density without space-occupying lesion. There is no dilation of th e biliary tree. Multiple calcified gallstones. Spleen: Homogeneous density without enlargement. Pancreas: Unremarkable without mass or calcification. Kidneys: Multiple bilateral renal cysts. No hydronephrosis. Adrenal Glands: Unremarkable. Aorta: The aorta and proximal iliac vessels are grossly unremarkable without aneurysmal dilation. Bowel/Mesentery: Left lower quadrant colostomy. No abnormally dilated bowel loops. Minimal free brandon toneal fluid in the paracolic gutters and interloop fluid in the central pelvis. Abdominal Wall: Intact. Retroperitoneum: No evidence of adenopathy in the retrocrural, para-aortic, or deep pelvic regions. Bladder: Decompressed with Barker catheter. Reproductive Organs: Prostate enlarged. No pelvic mass. Inguinal: The inguinal region is unremarkable without evidence of adenopathy. Bony Structures: Unremarkable. CONCLUSION: 1. Gallstones. 2. Minimal nonspecific free peritoneal fluid. 3. Mild infiltrate in the lung bases. Electronically signed by: Goyo Wren MD 03/12/2018 1:07 AM EDT
[2018-03-12] MEDS: Oral Hygiene Kit OROPHARYNG SCH ×4 (01:11→15:35)
[2018-03-12] MEDS: Propofol 1000 mg/100 ml Inj 1,000 MG/100 ML BOTTLE IV.CONT PRN ×3 (02:10→11:46)
[2018-03-12] MEDS ORDERED: Vasopressin Inj 40 UNIT in Dextrose 5% in Water Inj 98 ML IV.CONT SCH ×2 (03:00)
[2018-03-12] MEDS ORDERED: Chlorhexidine Gluconate 2% 1 Pack (2 Cloths) TOPICAL PRN (04:00)
[2018-03-12 04:23] LABS: Baso % (Auto) 0.1 % (0.0-2.0); Eos % (Auto) 0.1 % (0.0-4.0); Hematocrit 46.5 % (39.0-51.0); Hemoglobin 14.4 gm/dL (13.0-17.0); Lymph # (Auto) 4.5 th/mm3 (1.0-4.8); Lymph % (Auto) 23.1 % (9.0-44.0); Mean Corpuscular Volume 64.6 fL (80.0-100.0); Mean Platelet Volume 8.7 fL (7.0-11.0); Mono # (Auto) 0.9 th/mm3 (0.0-0.9); Mono % (Auto) 4.9 % (0.0-8.0); Neut % (Auto) 71.8 % (16.0-70.0); Platelet Count 117 th/mm3 (150-450); Red Cell Distribution Width 21.3 % (11.6-17.2); White Blood Count 19.5 th/mm3 (4.0-11.0)
[2018-03-12 04:31] LABS: Activated Partial Thrombo Time 23.3 sec (24.3-30.1); INR 1.2 Ratio; Prothrombin Time 11.9 sec (9.8-11.6)
[2018-03-12 04:58] LABS: Alanine Aminotransferase 510 U/L (12-78); Alkaline Phosphatase 94 U/L (45-117); Anion Gap 10 meq/L (5-15); Aspartate Aminotransferase 893 U/L (15-37); Blood Urea Nitrogen 43 mg/dL (7-18); Calcium 7.5 mg/dL (8.5-10.1); Carbon Dioxide 26.1 meq/L (21.0-32.0); Chloride 109 meq/L (98-107); Glomerular Filtration Rate 21 mL/min (>89); Glucose,Random 168 mg/dL (74-106); Magnesium 1.9 mg/dL (1.5-2.5); Phosphorus 4.3 mg/dL (2.5-4.9); Potassium 4.6 meq/L (3.5-5.1); Prealbumin 22 mg/dL (20-40); Sodium 145 meq/L (136-145); Total Protein 5.9 g/dL (6.4-8.2)
[2018-03-12] MEDS ORDERED: Norepinephrine Inj 4 MG/4 ML Ampul IV.CONT ONE (05:00)
[2018-03-12 05:58] LABS: ABG Base Excess 1.1 mmol/L (-2-2); ABG PCO2 46 mmHg (38-42); ABG PO2 120 mmHG (61-120)
[2018-03-12] MEDS: Chlorhexidine Gluconate 2% 1 Pack (2 Cloths) TOPICAL SCH (06:29)
[2018-03-12] MEDS: Heparin - SQ 10,000 UNITS/ML Vial SQ SCH ×4 (06:31→21:02)
[2018-03-12] MEDS: Famotidine PF Inj 20 MG/2 ML Vial IV.PUSH SCH ×2 (08:33→21:02)
[2018-03-12] MEDS: Piperacil/Tazo 3.375 GM Premix 50 ML IV.SIG SCH ×2 (08:33→13:10)
[2018-03-12] MEDS: Chlorhexidine 0.12% Oral Kit 15 ML UDC OROPHARYNG SCH ×2 (08:57→21:02)
[2018-03-12] MEDS: Senna/Docusate Sodium 8.6/50 MG Tablet PO SCH ×2 (08:57→21:02)
[2018-03-12 09:14] LABS: Amorphous Sediment,Urine Occasional /hpf; Bacteria,Urine Moderate /hpf; Bilirubin,Urine Negative (Negative); Clarity,Urine Hazy (Clear); Color,Urine Yellow (Yellw/Straw); Glucose,Urine (UA) 50 mg/dL (Negative); Leukocyte Esterase,Urine Small (Negative); Mucus,Urine Few /lpf (Occasional); Nitrite,Urine Negative (Negative); Squamous Epithelial Cell,Urine 1 /hpf (0-5); Transitional Epi Cells,Urine <1 /hpf
--- NOTE | 2018-03-12 10:40 | P.DIET ---
Nutritional Evaluation Type of nutrition evaluation: initial Nutrition consult regarding: Tube Feeding Objective - Diagnosis Respiratory Failure, Shock - Objective % IBW: 97 Body Weight Used for Calculations: Actual (76kg) Energy Needs - Lower Range (kCal/kg): 25 Energy Needs - Upper Range (kCal/kg): 30 Lower Limit kCal/kg (kCals): 1,900 Upper Limit kCal/kg (kCals): 2,280 Lower Limit Protein Factor (Grams per Kg): 1 Upper Limit Protein Factor (Grams per Kg): 1.2 Lower Protein Needs (Protein): 76 Upper Protein Needs (Protein): 91 Dietitian Reviewed in Medical Record: Current diet, Curent medications, Intake & Output, Labs, Medical history, Tube feeding Objective Comments: PMH: Afib, Colon CA s/p colostomy, COPD, HLD, HTN Meds include: Propofol Labs include: WBC 19.5, Cr 2.84, Glu 168, Lactic Acid 3.3, elevated LFT's, Troponin I 0.11 (-)BM Assessment Assessment: Pt at nutritional risk r/t need for a TF for nutrition support. Pt intubated and sedated on propofol, current rate of 30 ml/hr provides 792 kcals/24 hrs. TF Two Cameron HN with goal rate 55 ml/hr per MD. Pt's nutritional needs as assessed above. To best meet pt's nutritional needs, recommend a goal rate of 40 ml/hr to provide 1920 kcals, 80 gms protein and 672 mls free water. Will monitor TF tolerance, clinical course. Recommendations: TF Two Cameron HN with goal rate 40 ml/hr Dietitian to Monitor: Lab values, Renal labs, Intake & Output, Tube feeding tolerance, Weight change, Medical course
[2018-03-12] MEDS ORDERED: Sod Chloride 0.9% Inj 1,000 ML IV.SIG ONE (14:47)
[2018-03-12] MEDS ORDERED: DOPamine Inj 1,600 MG in Sodium Chlor 0.9% Inj 210 ML IV.CONT PRN (14:52)
[2018-03-12] MEDS ORDERED: Sod Chloride 0.9% Inj 1,000 ML IV.SIG SCH (15:15)
[2018-03-12 15:21] LABS: Baso % (Auto) 0.4 % (0.0-2.0); Eos % (Auto) 0.2 % (0.0-4.0); Hematocrit 43.4 % (39.0-51.0); Hemoglobin 13.5 gm/dL (13.0-17.0); Lymph # (Auto) 2.2 th/mm3 (1.0-4.8); Lymph % (Auto) 19.4 % (9.0-44.0); Mean Corpuscular HGB Conc 31.1 % (32.0-36.0); Mean Corpuscular Hemoglobin 20.1 pg (27.0-34.0); Mean Corpuscular Volume 64.6 fL (80.0-100.0); Mono # (Auto) 0.8 th/mm3 (0.0-0.9); Mono % (Auto) 7.3 % (0.0-8.0); Neut # (Auto) 8.2 th/mm3 (1.8-7.7); Neut % (Auto) 72.7 % (16.0-70.0); Platelet Count 90 th/mm3 (150-450); Red Blood Count 6.72 mil/mm3 (4.50-5.90); Red Cell Distribution Width 20.9 % (11.6-17.2); White Blood Count 11.3 th/mm3 (4.0-11.0)
[2018-03-12] MEDS: Hydrocortisone Sod Succinate 100 MG Vial IV.PUSH SCH ×2 (15:33→22:17)
[2018-03-12 15:55] LABS: Calcium 6.9 mg/dL (8.5-10.1); Carbon Dioxide 28.7 meq/L (21.0-32.0); Potassium 4.3 meq/L (3.5-5.1)
[2018-03-12 16:14] LABS: Total Protein 5.2 g/dL (6.4-8.2)
--- NOTE | 2018-03-12 16:54 | P.CONNP ---
History of Present Illness Reason for Consult: Acute renal insufficiency. Primary Care Provider: Yfn Myles MD Family Provider: Yfn Myles MD History of Present Illness: This patient is an 82-year-old male who currently can provide no medical history. History obtained primarily from the medical records both current and previous. The patient has a history of COPD, hypertension as well as diabetes mellitus. 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 From the records I reviewed the patient may have inadvertently taken higher doses of hypertensive medications and prescribed were advised. Subsequently presented to the hospital with hypotension and also evidence of acute renal insufficiency with a creatinine of 2.5 to, potassium of 5.4 and a total CO2 of only 17.1. Patient noted to have had a creatinine level ranging between 1.3 and 0.January. Earlier this admission patient developed worsening hypotension with bradycardia subsequently improved. Has been receiving IV hydration and bicarbonate but despite this creatinine level has deteriorated to 2.98. Acid-base status improved however. Currently on a ventilator. CT scan performed during this admission showed no evidence of hydronephrosis although the ICU nurse indicated to me that when she irrigated the Barker catheter earlier today urine output improved. Review of Systems unobtainable due to mental condition, unobtainable due to mental status PMFSH - History History Provided By: Appointment Setter / EMT - Medical History Medical History: Medical History (Last Updated 03/11/18 @ 21:49 by Yury Benavidez MD) Afib COPD (chronic obstructive pulmonary disease) Colon cancer Colostomy in place HLD (hyperlipidemia) HTN (hypertension) - Tobacco History Smoking Status: Cognitive impairment - Alcohol History How Often Do You Have a Drink Containing Alcohol: Unable to Obtain - Substance Use History Substance History: Unable to Obtain - Travel History Recent Travel in the [place] Within the Last 8 Weeks: No Recent Travel Out of the Country Within the Last 8 Weeks: No Medications and Allergies Active Medications: Active Medications Acetaminophen (Tylenol) 650 mg PO Q6H PRN PRN Reason: PAIN 1-10 AND/OR FEVER >101F Al Hydroxide/Mg Hydroxide (Milk Of Magnesia Liq) 30 ml PO Q12H PRN PRN Reason: Mild Constipation Albuterol (Albuterol Neb (Prn)) 2.5 mg NEB Q2HR NEB PRN PRN Reason: SHORTNESS OF BREATH/WHEEZING Albuterol (Duoneb Neb ([facility])) 1 ampul NEB Q6HR NEB [facility] Last Admin: 03/12/18 08:20 Dose: 1 ampul Bisacodyl (Dulcolax Supp) 10 mg RECTAL DAILY PRN PRN Reason: SEVERE CONSITIPATION Chlorhexidine Gluconate (Peridex 0.12% Oral Kit) 15 ml OROPHARYNG BID@0800, 2000 [facility] Last Admin: 03/12/18 08:57 Dose: 15 ml Chlorhexidine Gluconate (Chlorhexidine 2% Cloth) 3 pack TOPICAL DAILY@0400 VIJAYA Stop: 03/17/18 03:59 Last Admin: 03/12/18 06:29 Dose: 3 pack Chlorhexidine Gluconate (Chlorhexidine 2% Cloth) 3 pack TOPICAL DAILY@0400 PRN PRN Reason: Extra cloth needed Stop: 03/17/18 03:59 Famotidine (Pepcid Pf Inj) 20 mg IV.PUSH Q12HR [facility] Last Admin: 03/12/18 08:33 Dose: 20 mg Heparin Sodium (Porcine) (Heparin Inj) 5,000 units SQ Q8H [facility] Last Admin: 03/12/18 13:10 Dose: 5,000 units Hydrocortisone Sodium Succinate (Solucortef Inj) 100 mg IV.PUSH Q8HR [facility] Last Admin: 03/12/18 15:33 Dose: 100 mg Propofol (Diprivan 1000 Mg/100 Ml Inj) 1,000 mg in 100 mls @ 3 mls/hr IV.CONT TITRATE PRN; Protocol PRN Reason: Per Protocol Last Titration: 03/12/18 15:00 Dose: 0 mcg/kg/min, 0 mls/hr Sodium Bicarbonate 150 meq/ (Sodium Chloride) 1,000 mls @ 75 mls/hr IV.CONT .[id number] [facility] Last Infusion: 03/12/18 08:00 Dose: 75 mls/hr Norepinephrine Bitartrate 16 (mg/ Dextrose) 250 mls @ 1.87 mls/hr IV.CONT TITRATE PRN; Protocol PRN Reason: See Protocol Last Titration: 03/12/18 16:05 Dose: 5 mcg/min, 4.68 mls/hr Vasopressin 40 unit/ Dextrose 100 mls @ 6 mls/hr IV.CONT CONT VIJAYA; Protocol Last Infusion: 03/12/18 07:00 Dose: 0 units/min, 0 mls/hr Midazolam HCl (Versed Inj) 50 mg in 50 mls @ 2 mls/hr IV.CONT TITRATE PRN; Protocol PRN Reason: Per Protocol Dopamine HCl 1,600 mg/ Sodium (Chloride) 250 mls @ 2.13 mls/hr IV.CONT TITRATE PRN; Protocol PRN Reason: See protocol Piperacillin/Tazobactam/Dextrose (Zosyn 2.25 Gm Premix) 50 mls @ 100 mls/hr IV.SIG Q6H VIJAYA Lactulose (Lactulose Liq) 30 ml PO DAILY PRN PRN Reason: SEVERE CONSITIPATION Lorazepam (Ativan Inj) 2 mg IV.PUSH Q4H PRN PRN Reason: SEDATION Lorazepam (Ativan Inj) 2 mg IV.PUSH STAT VIJAYA Lorazepam (Ativan Inj) 2 mg IV.PUSH Q2H PRN PRN Reason: AGITATION Ondansetron HCl (Zofran Odt) 4 mg PO Q6H PRN PRN Reason: NAUSEA OR VOMITING Senna/Docusate Sodium (Krystin-Colace) 1 tab PO BID [facility] Last Admin: 03/12/18 08:57 Dose: Not Given Sennosides (Senokot) 17.2 mg PO Q12H PRN PRN Reason: Moderate Constipation Sodium Chloride (Ns Flush) 2 ml IV.FLUSH BID [facility] Last Admin: 03/12/18 08:57 Dose: 2 ml Sodium Chloride (Ns Flush) 2 ml IV.FLUSH PRN PRN PRN Reason: FLUSH AFTER USING IV ACCESS Terbutaline Sulfate (Brethine Inj) 1 mg SQ UNSCH PRN PRN Reason: For Extravasation Terbutaline Sulfate (Brethine Inj) 1 mg SQ ONCE PRN PRN Reason: Extravasation Allergies Allergy/AdvReac Type Severity Reaction Status Date / Time aspirin Allergy Mild HEART RATE Unverified 02/06/18 11:37 INCREASES caffeine Allergy Mild HEART RATE Unverified 02/06/18 11:37 INCREASES Home Medications Medication Instructions Recorded Confirmed Type hydrochlorothiazide 25 mg PO QAM 03/12/18 03/12/18 History lisinopril 5 mg PO DAILY 03/12/18 03/12/18 History metoprolol tartrate 50 mg PO BID 03/12/18 03/12/18 History verapamil 240 mg PO QAM 03/12/18 03/12/18 History Exam Vital signs: Vital Signs 03/11/18 20:58 03/11/18 21:39 03/11/18 22:15 Temperature Pulse Rate 74 Respiratory Rate 18 24 Blood Pressure 70/00 L Pulse Oximetry 100 100 03/11/18 22:30 03/11/18 22:38 03/11/18 23:00 Temperature 96.6 F L Pulse Rate 85 Respiratory Rate 20 30 H Blood Pressure 119/67 Pulse Oximetry 97 100 93 L 03/12/18 00:00 03/12/18 00:10 03/12/18 01:00 Temperature 97.2 F L 97.0 F L Pulse Rate 63 60 Respiratory Rate 18 18 Blood Pressure 132/70 126/74 Pulse Oximetry 100 100 93 L 03/12/18 01:20 03/12/18 02:00 03/12/18 02:37 Temperature 97.0 F L Pulse Rate 52 L 65 Respiratory Rate 18 18 18 Blood Pressure 68/44 L 158/87 H Pulse Oximetry 95 98 99 03/12/18 03:00 03/12/18 04:00 03/12/18 04:58 Temperature 97.0 F L 96.8 F L Pulse Rate 58 L 60 62 Respiratory Rate 18 18 18 Blood Pressure 119/73 135/75 Pulse Oximetry 97 97 03/12/18 05:00 03/12/18 05:24 03/12/18 06:00 Temperature 96.6 F L 96.3 F L Pulse Rate 62 64 Respiratory Rate 18 18 18 Blood Pressure 132/77 134/78 Pulse Oximetry 98 98 98 03/12/18 07:00 03/12/18 08:00 03/12/18 08:01 Temperature 96.1 F L 95.9 F L Pulse Rate 66 60 60 Respiratory Rate 18 18 18 Blood Pressure 145/79 H 126/67 Pulse Oximetry 100 100 100 03/12/18 08:21 03/12/18 09:00 03/12/18 09:01 Temperature 95.4 F L Pulse Rate 62 65 64 Respiratory Rate 18 18 18 Blood Pressure 93/55 L Pulse Oximetry 100 97 97 03/12/18 10:00 03/12/18 10:01 03/12/18 11:00 Temperature 96.4 F L 96.8 F L Pulse Rate 68 68 66 Respiratory Rate 18 18 18 Blood Pressure 122/61 115/69 100/51 L Pulse Oximetry 100 100 100 03/12/18 11:01 03/12/18 11:54 03/12/18 12:00 Temperature 97.2 F L Pulse Rate 66 64 Respiratory Rate 18 18 19 Blood Pressure 96/61 L 98/52 L Pulse Oximetry 100 100 100 03/12/18 12:25 03/12/18 13:00 03/12/18 14:00 Temperature Pulse Rate 68 74 74 Respiratory Rate 23 19 Blood Pressure 104/63 Pulse Oximetry 100 100 03/12/18 14:01 03/12/18 14:25 03/12/18 14:47 Temperature Pulse Rate 74 74 85 Respiratory Rate 19 20 Blood Pressure 150/73 H 165/95 H Pulse Oximetry 100 100 03/12/18 15:00 03/12/18 15:01 03/12/18 16:00 Temperature 99.1 F 99.1 F Pulse Rate 77 77 78 Respiratory Rate 19 20 19 Blood Pressure 93/53 L Pulse Oximetry 100 100 100 03/12/18 16:01 03/12/18 16:12 Temperature Pulse Rate 78 78 Respiratory Rate 19 Blood Pressure 125/78 Pulse Oximetry 100 Intake & Output 03/11/18 03/12/18 03/12/18 18:59 06:59 18:59 Intake Total 200 / 200 1150 / 1150 Output Total 0 / 0 265 / 265 Balance 200 / 200 885 / 885 Weight 76 kg 116 kg Intake: IV 200 / 200 1150 / 1150 Diprivan 1000 mg/100 ml Inj 1, 200 / 200 100 / 100 000 mg In 100 ml @ 5 MCG/KG/MIN 3 mls/hr IV.CONT TITRATE PRN Rx#:[id number] Sodium Bicarbonate 8.4% Inj 150 1000 / 1000 MEQ In 1/2 Normal Saline Inj 850 ML @ 125 mls/hr IV.CONT . Q8H VIJAYA Rx#:[id number] Zosyn 3.375 GM Premix 50 ML @ 50 / 50 100 mls/hr IV.SIG Q6H VIJAYA Rx#: [id number] Output: Urine 0 / 0 Urine Amount (Catheter) 0 / 0 265 / 265 Indwelling Urethral Catheter 0 / 0 265 / 265 Other: Weight On Admission 76 kg Narrative: GENERAL: Well-nourished appearing elderly male with an ET tube in place on ventilatory support. Not in distress. SKIN: Warm and dry. HEAD: Normocephalic. EYES: No scleral icterus. No injection or drainage. NECK: Supple, trachea midline. No JVD or lymphadenopathy. CARDIOVASCULAR: Regular rate and rhythm without murmurs, gallops, or rubs. RESPIRATORY: Breath sounds equal bilaterally. No accessory muscle use. GASTROINTESTINAL: Abdomen soft, non-tender, nondistended. MUSCULOSKELETAL: No cyanosis, or edema. Results - Lab Results 03/12/18 15:00 03/12/18 15:00 Most recent lab results ABG pH 7.37 (7.380-7.420) L 03/12/18 05:44 ABG pCO2 46 mmHg (38-42) H 03/12/18 05:44 ABG pO2 120 mmHG (61-120) 03/12/18 05:44 ABG HCO3 26 mmol/L (22-26) 03/12/18 05:44 Calcium 6.9 mg/dL (8.5-10.1) L* 03/12/18 15:00 Phosphorus 4.3 mg/dL (2.5-4.9) 03/12/18 03:31 Magnesium 1.9 mg/dL (1.5-2.5) 03/12/18 03:31 Assessment and Plan - Assessment (1) Acute renal insufficiency Code(s): N28.9 - Disorder of kidney and ureter, unspecified Status: Acute Plan: Most likely related initially to hemodynamic issues but may have progressed to an acute tubal necrosis at this point in time. No felicia volume overload presently. We would continue IV hydration for the present with monitoring of volume status and renal indices. Medications should be adjusted for the patient's estimated GFR if clinically indicated. Avoid agents with significant potential for nephrotoxicity possible including NSAIDs for analgesia, iodine contrast agents. Gadolinium is contraindicated if the GFR is below 30. (2) Hypernatremia Code(s): E87.0 - Hyperosmolality and hypernatremia Status: Acute Plan: At this point in time would adjust IV fluids in view of developing hyponatremia. Discontinue sodium bicarbonate as his acid-base status is improved significantly. (3) Metabolic acidosis Code(s): E87.2 - Acidosis Status: Acute Plan: Resolved. Continue to monitor however for recurrence. Procedures - Arterial Line Size (Gauge): 18
[2018-03-12] MEDS: Sodium Chloride 0.45 % Inj 1,000 ML IV.CONT SCH (17:08)
--- NOTE | 2018-03-12 17:10 | P.PNCC ---
Subjective Subjective Remarks/Hospital Course: 03/11: 82-year-old male presents with chief complaint of not feeling well, times today. On EMS arrival they found him pale diaphoretic tachycardic and critically ill. The patient has a history of colon cancer. According to nursing staff his family had some concern that he may intentionally took too many blood pressure medication. He was emergently intubated by ED attending for an airway protection due to altered mental status as well as severe hemodynamic instability. The patient is unable to give any additional history. No family available in the emergency department. 03/12: Remains sedated, orally intubated on mechanical ventilation. Hypotensive on pressors. Borderline urine output. Objective Vital Signs / I&O: Vital Signs 03/11/18 20:58 03/11/18 21:39 03/11/18 22:15 Temperature Pulse Rate 74 Respiratory Rate 18 24 Blood Pressure 70/00 L Pulse Oximetry 100 100 03/11/18 22:30 03/11/18 22:38 03/11/18 23:00 Temperature 96.6 F L Pulse Rate 85 Respiratory Rate 20 30 H Blood Pressure 119/67 Pulse Oximetry 97 100 93 L 03/12/18 00:00 03/12/18 00:10 03/12/18 01:00 Temperature 97.2 F L 97.0 F L Pulse Rate 63 60 Respiratory Rate 18 18 Blood Pressure 132/70 126/74 Pulse Oximetry 100 100 93 L 03/12/18 01:20 03/12/18 02:00 03/12/18 02:37 Temperature 97.0 F L Pulse Rate 52 L 65 Respiratory Rate 18 18 18 Blood Pressure 68/44 L 158/87 H Pulse Oximetry 95 98 99 03/12/18 03:00 03/12/18 04:00 03/12/18 04:58 Temperature 97.0 F L 96.8 F L Pulse Rate 58 L 60 62 Respiratory Rate 18 18 18 Blood Pressure 119/73 135/75 Pulse Oximetry 97 97 03/12/18 05:00 03/12/18 05:24 03/12/18 06:00 Temperature 96.6 F L 96.3 F L Pulse Rate 62 64 Respiratory Rate 18 18 18 Blood Pressure 132/77 134/78 Pulse Oximetry 98 98 98 03/12/18 07:00 03/12/18 08:00 03/12/18 08:01 Temperature 96.1 F L 95.9 F L Pulse Rate 66 60 60 Respiratory Rate 18 18 18 Blood Pressure 145/79 H 126/67 Pulse Oximetry 100 100 100 03/12/18 08:21 03/12/18 09:00 03/12/18 09:01 Temperature 95.4 F L Pulse Rate 62 65 64 Respiratory Rate 18 18 18 Blood Pressure 93/55 L Pulse Oximetry 100 97 97 03/12/18 10:00 03/12/18 10:01 03/12/18 11:00 Temperature 96.4 F L 96.8 F L Pulse Rate 68 68 66 Respiratory Rate 18 18 18 Blood Pressure 122/61 115/69 100/51 L Pulse Oximetry 100 100 100 03/12/18 11:01 03/12/18 11:54 03/12/18 12:00 Temperature 97.2 F L Pulse Rate 66 64 Respiratory Rate 18 18 19 Blood Pressure 96/61 L 98/52 L Pulse Oximetry 100 100 100 03/12/18 12:25 03/12/18 13:00 03/12/18 14:00 Temperature Pulse Rate 68 74 74 Respiratory Rate 23 19 Blood Pressure 104/63 Pulse Oximetry 100 100 03/12/18 14:01 03/12/18 14:25 03/12/18 14:47 Temperature Pulse Rate 74 74 85 Respiratory Rate 19 20 Blood Pressure 150/73 H 165/95 H Pulse Oximetry 100 100 03/12/18 15:00 03/12/18 15:01 03/12/18 16:00 Temperature 99.1 F 99.1 F Pulse Rate 77 77 78 Respiratory Rate 19 20 19 Blood Pressure 93/53 L Pulse Oximetry 100 100 100 03/12/18 16:01 03/12/18 16:12 03/12/18 16:52 Temperature Pulse Rate 78 78 Respiratory Rate 19 19 Blood Pressure 125/78 Pulse Oximetry 100 100 03/12/18 16:53 Temperature Pulse Rate 78 Respiratory Rate 19 Blood Pressure Pulse Oximetry Intake & Output 03/11/18 03/12/18 03/12/18 18:59 06:59 18:59 Intake Total 200 / 200 1150 / 1150 Output Total 0 / 0 265 / 265 Balance 200 / 200 885 / 885 Weight 76 kg 116 kg Intake: IV 200 / 200 1150 / 1150 Diprivan 1000 mg/100 ml Inj 1, 200 / 200 100 / 100 000 mg In 100 ml @ 5 MCG/KG/MIN 3 mls/hr IV.CONT TITRATE PRN Rx#:[id number] Sodium Bicarbonate 8.4% Inj 150 1000 / 1000 MEQ In 1/2 Normal Saline Inj 850 ML @ 125 mls/hr IV.CONT . Q8H [facility] Rx#:[id number] Zosyn 3.375 GM Premix 50 ML @ 50 / 50 100 mls/hr IV.SIG Q6H [facility] Rx#: [id number] Output: Urine 0 / 0 Urine Amount (Catheter) 0 / 0 265 / 265 Indwelling Urethral Catheter 0 / 0 265 / 265 Other: Weight On Admission 76 kg Result Diagrams: 03/12/18 15:00 03/12/18 15:00 Other Results: Laboratory Results - last 24 hr 03/11/18 03/11/18 03/11/18 20:00 20:00 20:00 WBC 10.4 RBC 6.53 H Hgb 12.7 L Hct 41.3 MCV 63.3 L MCH 19.4 L MCHC 30.7 L RDW 19.2 H Plt Count 162 MPV 8.8 Prelim Diff (Auto) Neut % (Auto) 63.5 Lymph % (Auto) 29.8 Brooks % (Auto) 5.7 Eos % (Auto) 0.5 Baso % (Auto) 0.5 Neut # (Auto) 6.6 Lymph # (Auto) 3.1 Brooks # (Auto) 0.6 Eos # (Auto) 0.0 Baso # (Auto) 0.1 WBC Differential . Diff Scan Differential Comment Auto diff final Platelet Estimate Platelet Morphology PT 10.5 INR 1.0 APTT 21.7 L Puncture Site Patient Temperature O2 Saturation ABG pH ABG pCO2 ABG pO2 ABG HCO3 ABG O2 Content ABG Base Excess ABG Methemoglobin Santiago Test Hemoglobin Carboxyhemoglobin O2 Delivery Device Liter Flow Vent Setting Inspired O2 Critical Value Sodium Potassium Chloride Carbon Dioxide Anion Gap BUN Creatinine Estimated GFR Random Glucose Lactic Acid Calcium Prot Corrected Calcium Phosphorus Magnesium 2.1 Total Bilirubin AST ALT Alkaline Phosphatase Troponin I 0.02 Total Protein Albumin Prealbumin Urine Color Urine Clarity Urine pH Ur Specific [place] Urine Protein Urine Glucose (UA) Urine Ketones Urine Occult Blood Urine Nitrate Urine Bilirubin Urine Urobilinogen Ur Leukocyte Esterase Urine RBC Urine WBC Ur Squamous Epith Cells Ur Transition Epith Cell Amorphous Sediment Urine Bacteria Urine Mucus Micro UA Comment Nasal Screen MRSA (PCR) Blood Type Antibody Screen MTS Gel Crossmatch 03/11/18 03/11/18 03/11/18 20:00 20:00 20:00 WBC RBC Hgb Hct MCV MCH MCHC RDW Plt Count MPV Prelim Diff (Auto) Neut % (Auto) Lymph % (Auto) Brooks % (Auto) Eos % (Auto) Baso % (Auto) Neut # (Auto) Lymph # (Auto) Brooks # (Auto) Eos # (Auto) Baso # (Auto) WBC Differential Diff Scan Differential Comment Platelet Estimate Platelet Morphology PT INR APTT Puncture Site Patient Temperature O2 Saturation ABG pH ABG pCO2 ABG pO2 ABG HCO3 ABG O2 Content ABG Base Excess ABG Methemoglobin [place] Test Hemoglobin Carboxyhemoglobin O2 Delivery Device Liter Flow Vent Setting Inspired O2 Critical Value Sodium 142 Potassium 5.4 H Chloride 110 H Carbon Dioxide 17.1 L Anion Gap 15 BUN 39 H Creatinine 2.52 H Estimated GFR 25 L Random Glucose 200 H Lactic Acid 4.4 H* Calcium 8.8 Prot Corrected Calcium Phosphorus Magnesium Total Bilirubin 1.3 H AST 69 H ALT 51 Alkaline Phosphatase 71 Troponin I Total Protein 6.6 Albumin 3.2 L Prealbumin Urine Color Urine Clarity Urine pH Ur Specific [place] Urine Protein Urine Glucose (UA) Urine Ketones Urine Occult Blood Urine Nitrate Urine Bilirubin Urine Urobilinogen Ur Leukocyte Esterase Urine RBC Urine WBC Ur Squamous Epith Cells Ur Transition Epith Cell Amorphous Sediment Urine Bacteria Urine Mucus Micro UA Comment Nasal Screen MRSA (PCR) Blood Type B Positive Antibody Screen Negative MTS Gel Crossmatch See Detail 03/11/18 03/11/18 03/11/18 20:27 21:19 22:30 WBC RBC Hgb Hct MCV MCH MCHC RDW Plt Count MPV Prelim Diff (Auto) Neut % (Auto) Lymph % (Auto) Brooks % (Auto) Eos % (Auto) Baso % (Auto) Neut # (Auto) Lymph # (Auto) Brooks # (Auto) Eos # (Auto) Baso # (Auto) WBC Differential Diff Scan Differential Comment Platelet Estimate Platelet Morphology PT INR APTT Puncture Site Art line Art line Patient Temperature 98.6 98.6 O2 Saturation 99 97 ABG pH 7.28 L* 7.17 L* ABG pCO2 30 L 39 ABG pO2 307 H 152 H ABG HCO3 13 L* 13 L* ABG O2 Content 17.5 19.5 ABG Base Excess -12.2 L -13.5 L ABG Methemoglobin 0.4 0.5 Santiago Test Hemoglobin 12.1 14.1 Carboxyhemoglobin 0.6 0.4 O2 Delivery Device Nrb Vent Liter Flow 15.00 Vent Setting Prvc/ac Inspired O2 100 50 Critical Value Yes Yes Sodium Potassium Chloride Carbon Dioxide Anion Gap BUN Creatinine Estimated GFR Random Glucose Lactic Acid Calcium Prot Corrected Calcium Phosphorus Magnesium Total Bilirubin AST ALT Alkaline Phosphatase Troponin I Total Protein Albumin Prealbumin Urine Color Urine Clarity Urine pH Ur Specific [place] Urine Protein Urine Glucose (UA) Urine Ketones Urine Occult Blood Urine Nitrate Urine Bilirubin Urine Urobilinogen Ur Leukocyte Esterase Urine RBC Urine WBC Ur Squamous Epith Cells Ur Transition Epith Cell Amorphous Sediment Urine Bacteria Urine Mucus Micro UA Comment Nasal Screen MRSA (PCR) Not detected Blood Type Antibody Screen MTS Gel Crossmatch 03/12/18 03/12/18 03/12/18 02:28 03:31 03:31 WBC 19.5 H D RBC 7.20 H Hgb 14.4 Hct 46.5 MCV 64.6 L MCH 20.0 L MCHC 31.0 L RDW 21.3 H Plt Count 117 L MPV 8.7 Prelim Diff (Auto) Slide review pending Neut % (Auto) 71.8 H Lymph % (Auto) 23.1 Brooks % (Auto) 4.9 Eos % (Auto) 0.1 Baso % (Auto) 0.1 Neut # (Auto) 14.0 H Lymph # (Auto) 4.5 Brooks # (Auto) 0.9 Eos # (Auto) 0.0 Baso # (Auto) 0.0 WBC Differential . Diff Scan Auto diff confirmed Differential Comment . Platelet Estimate Low L Platelet Morphology Enlarged H PT INR APTT Puncture Site Patient Temperature O2 Saturation ABG pH ABG pCO2 ABG pO2 ABG HCO3 ABG O2 Content ABG Base Excess ABG Methemoglobin [place] Test Hemoglobin Carboxyhemoglobin O2 Delivery Device Liter Flow Vent Setting Inspired O2 Critical Value Sodium Potassium Chloride Carbon Dioxide Anion Gap BUN Creatinine Estimated GFR Random Glucose Lactic Acid 3.3 H Calcium Prot Corrected Calcium Phosphorus Magnesium Total Bilirubin AST ALT Alkaline Phosphatase Troponin I 0.07 H Total Protein Albumin Prealbumin Urine Color Urine Clarity Urine pH Ur Specific [place] Urine Protein Urine Glucose (UA) Urine Ketones Urine Occult Blood Urine Nitrate Urine Bilirubin Urine Urobilinogen Ur Leukocyte Esterase Urine RBC Urine WBC Ur Squamous Epith Cells Ur Transition Epith Cell Amorphous Sediment Urine Bacteria Urine Mucus Micro UA Comment Nasal Screen MRSA (PCR) Blood Type Antibody Screen MTS Gel Crossmatch 03/12/18 03/12/18 03/12/18 03:31 03:31 05:44 WBC RBC Hgb Hct MCV MCH MCHC RDW Plt Count MPV Prelim Diff (Auto) Neut % (Auto) Lymph % (Auto) Brooks % (Auto) Eos % (Auto) Baso % (Auto) Neut # (Auto) Lymph # (Auto) Brooks # (Auto) Eos # (Auto) Baso # (Auto) WBC Differential Diff Scan Differential Comment Platelet Estimate Platelet Morphology PT 11.9 H INR 1.2 APTT 23.3 L Puncture Site Art line Patient Temperature 98.6 O2 Saturation 96 ABG pH 7.37 L ABG pCO2 46 H ABG pO2 120 ABG HCO3 26 ABG O2 Content 20.5 H ABG Base Excess 1.1 ABG Methemoglobin 1.3 Santiago Test Present Hemoglobin 15.1 Carboxyhemoglobin 0.8 O2 Delivery Device Ventilator Liter Flow Vent Setting See comments Inspired O2 50 Critical Value No Sodium 145 Potassium 4.6 D Chloride 109 H Carbon Dioxide 26.1 D Anion Gap 10 BUN 43 H Creatinine 2.84 H Estimated GFR 21 L Random Glucose 168 H Lactic Acid Calcium 7.5 L D Prot Corrected Calcium Phosphorus 4.3 Magnesium 1.9 Total Bilirubin 2.9 H AST 893 H ALT 510 H Alkaline Phosphatase 94 Troponin I Total Protein 5.9 L D Albumin 3.0 L Prealbumin 22 Urine Color Urine Clarity Urine pH Ur Specific [place] Urine Protein Urine Glucose (UA) Urine Ketones Urine Occult Blood Urine Nitrate Urine Bilirubin Urine Urobilinogen Ur Leukocyte Esterase Urine RBC Urine WBC Ur Squamous Epith Cells Ur Transition Epith Cell Amorphous Sediment Urine Bacteria Urine Mucus Micro UA Comment Nasal Screen MRSA (PCR) Blood Type Antibody Screen MTS Gel Crossmatch 03/12/18 03/12/18 03/12/18 08:19 08:45 15:00 WBC 11.3 H RBC 6.72 H Hgb 13.5 Hct 43.4 MCV 64.6 L MCH 20.1 L MCHC 31.1 L RDW 20.9 H Plt Count 90 L MPV 9.0 Prelim Diff (Auto) Slide review pending Neut % (Auto) 72.7 H Lymph % (Auto) 19.4 Brooks % (Auto) 7.3 Eos % (Auto) 0.2 Baso % (Auto) 0.4 Neut # (Auto) 8.2 H Lymph # (Auto) 2.2 Brooks # (Auto) 0.8 Eos # (Auto) 0.0 Baso # (Auto) 0.0 WBC Differential . Diff Scan Auto diff confirmed Differential Comment . Platelet Estimate Platelet Morphology PT INR APTT Puncture Site Patient Temperature O2 Saturation ABG pH ABG pCO2 ABG pO2 ABG HCO3 ABG O2 Content ABG Base Excess ABG Methemoglobin [place] Test Hemoglobin Carboxyhemoglobin O2 Delivery Device Liter Flow Vent Setting Inspired O2 Critical Value Sodium Potassium Chloride Carbon Dioxide Anion Gap BUN Creatinine Estimated GFR Random Glucose Lactic Acid Calcium Prot Corrected Calcium Phosphorus Magnesium Total Bilirubin AST ALT Alkaline Phosphatase Troponin I 0.11 H Total Protein Albumin Prealbumin Urine Color Yellow Urine Clarity Hazy H Urine pH 5.0 Ur Specific [place] 1.010 Urine Protein 100 H Urine Glucose (UA) 50 Urine Ketones Negative Urine Occult Blood Large H Urine Nitrate Negative Urine Bilirubin Negative Urine Urobilinogen Less than 2 Ur Leukocyte Esterase Small H Urine RBC 131 H Urine WBC 42 H Ur Squamous Epith Cells 1 Ur Transition Epith Cell <1 Amorphous Sediment Occasional H Urine Bacteria Moderate H Urine Mucus Few H Micro UA Comment Cath-culture ind Nasal Screen MRSA (PCR) Blood Type Antibody Screen MTS Gel Crossmatch 03/12/18 03/12/18 15:00 15:00 WBC RBC Hgb Hct MCV MCH MCHC RDW Plt Count MPV Prelim Diff (Auto) Neut % (Auto) Lymph % (Auto) Brooks % (Auto) Eos % (Auto) Baso % (Auto) Neut # (Auto) Lymph # (Auto) Brooks # (Auto) Eos # (Auto) Baso # (Auto) WBC Differential Diff Scan Differential Comment Platelet Estimate Platelet Morphology PT INR APTT Puncture Site Patient Temperature O2 Saturation ABG pH ABG pCO2 ABG pO2 ABG HCO3 ABG O2 Content ABG Base Excess ABG Methemoglobin [place] Test Hemoglobin Carboxyhemoglobin O2 Delivery Device Liter Flow Vent Setting Inspired O2 Critical Value Sodium 147 H Potassium 4.3 Chloride 108 H Carbon Dioxide 28.7 Anion Gap 10 BUN 45 H Creatinine 2.98 H Estimated GFR 20 L Random Glucose 114 H Lactic Acid 2.0 Calcium 6.9 L* Prot Corrected Calcium 7.9 L Phosphorus Magnesium Total Bilirubin AST ALT Alkaline Phosphatase Troponin I Total Protein 5.2 L D Albumin Prealbumin Urine Color Urine Clarity Urine pH Ur Specific [place] Urine Protein Urine Glucose (UA) Urine Ketones Urine Occult Blood Urine Nitrate Urine Bilirubin Urine Urobilinogen Ur Leukocyte Esterase Urine RBC Urine WBC Ur Squamous Epith Cells Ur Transition Epith Cell Amorphous Sediment Urine Bacteria Urine Mucus Micro UA Comment Nasal Screen MRSA (PCR) Blood Type Antibody Screen MTS Gel Crossmatch Imaging: Chest X-Ray 03/11/18 20:06 CONCLUSION: ET tube in a low position 1.7 cm above the kenji. Increased density at the lateral left base representing some mild consolidation , atelectasis and/or effusion. Left internal jugular central line and NG tube in good position. Abdomen/Pelvis CT 03/12/18 22:23 CONCLUSION: 1. Gallstones. 2. Minimal nonspecific free peritoneal fluid. 3. Mild infiltrate in the lung bases. Head CT 03/12/18 22:57 CONCLUSION: No acute intracranial findings. Objective Remarks: HEENT/ Neuro: Sedated, arousable, follows commands occasionally, orally intubated, Pallor present, no icterus, tongue/ mucosa moist Neck: No JVD Chest/Pulm: on mech vent, good air entry bilaterally, no wheezing or crackles CVS: S1-S2 regular, no murmur GI/abdomen: soft, nontender, bowel sounds sluggish. Colostomy in place Extremities: warm bilaterally, no edema Assessment and Plan - Assessment and Plan Plan: Respiratory failure -Intubated for an airway protection -Vent bundle -No weaning until neurologically and hemodynamically stable -DuoNeb scheduled and as needed COPD -No exacerbation -DuoNeb scheduled and as needed Severe metabolic acidosis -Non-anion gap -CT abdomen and pelvis unremarkable -Panculture to rule out sepsis -Lactic acidosis -IV fluid hydration -Sodium bicarbonate gtt Hypotension -Possible antihypertensive meds overdose -Central line and A-line placed in the ED -Levophed to keep map above 65 -Add dopamine on vasopressin as needed for hypotension. -Telemetry -2D echo pending -Series of troponins and EKGs to rule out ACS -Stress dose steroids Acute kidney injury -Strict I's and O's -Monitor creatinine and electrolytes -IV fluid hydration Atrial fibrillation -Rate controlled -Telemetry DVT GI prophylaxis -Teds SCDs -Heparin -Pepcid Critical Care: The total critical care time was 35 minutes. Time to perform other separately billable procedures was not included in the critical care time. Procedures - Arterial Line Size (Gauge): 18
[2018-03-12] MEDS: Piperacil/Tazo 2.25 GM Premix 50 ML IV.SIG SCH (21:02)
[2018-03-13] MEDS: Piperacil/Tazo 2.25 GM Premix 50 ML IV.SIG SCH ×4 (02:00→20:34)
[2018-03-13] MEDS: Sodium Chloride 0.45 % Inj 1,000 ML IV.CONT SCH (03:21)
[2018-03-13] MEDS: Chlorhexidine Gluconate 2% 1 Pack (2 Cloths) TOPICAL SCH (04:13)
[2018-03-13] MEDS: Oral Hygiene Kit OROPHARYNG SCH ×4 (04:29→15:52)
[2018-03-13 05:48] LABS: Baso % (Auto) 0.1 % (0.0-2.0); Hematocrit 44.4 % (39.0-51.0); Lymph # (Auto) 3.7 th/mm3 (1.0-4.8); Mean Corpuscular HGB Conc 31.5 % (32.0-36.0); Mean Corpuscular Hemoglobin 20.2 pg (27.0-34.0); Mean Corpuscular Volume 64.3 fL (80.0-100.0); Mean Platelet Volume 9.2 fL (7.0-11.0); Mono # (Auto) 0.6 th/mm3 (0.0-0.9); Mono % (Auto) 3.3 % (0.0-8.0); Neut # (Auto) 13.3 th/mm3 (1.8-7.7); Neut % (Auto) 75.6 % (16.0-70.0); Platelet Count 124 th/mm3 (150-450); Red Cell Distribution Width 20.7 % (11.6-17.2); White Blood Count 17.6 th/mm3 (4.0-11.0)
[2018-03-13 06:10] LABS: Anion Gap 12 meq/L (5-15); Aspartate Aminotransferase 211 U/L (15-37); Blood Urea Nitrogen 51 mg/dL (7-18); Calcium 7.6 mg/dL (8.5-10.1); Carbon Dioxide 27.7 meq/L (21.0-32.0); Chloride 105 meq/L (98-107); Glomerular Filtration Rate 18 mL/min (>89); Glucose,Random 152 mg/dL (74-106); Potassium 4.1 meq/L (3.5-5.1); Sodium 145 meq/L (136-145)
[2018-03-13 06:14] LABS: Alanine Aminotransferase 360 U/L (12-78); Alkaline Phosphatase 81 U/L (45-117); Complement C3 72 mg/dL (90-180); Phosphorus 4.7 mg/dL (2.5-4.9); Total Protein 6.1 g/dL (6.4-8.2)
[2018-03-13] MEDS: Heparin - SQ 10,000 UNITS/ML Vial SQ SCH ×3 (06:33→20:36)
[2018-03-13] MEDS: Hydrocortisone Sod Succinate 100 MG Vial IV.PUSH SCH ×3 (06:33→21:31)
[2018-03-13] MEDS: Propofol 1000 mg/100 ml Inj 1,000 MG/100 ML BOTTLE IV.CONT PRN ×2 (06:34→23:24)
[2018-03-13] MEDS: Famotidine PF Inj 20 MG/2 ML Vial IV.PUSH SCH ×2 (08:11→20:35)
[2018-03-13] MEDS: Senna/Docusate Sodium 8.6/50 MG Tablet PO SCH ×2 (08:12→20:36)
[2018-03-13] MEDS: Chlorhexidine 0.12% Oral Kit 15 ML UDC OROPHARYNG SCH ×2 (09:04→20:25)
[2018-03-13] MEDS: Midazolam 50 MG/50 ML Inj 50 MG/50 ML BAG IV.CONT PRN ×2 (10:11→23:32)
--- NOTE | 2018-03-13 10:47 | P.CONPAL ---
Consult Service: Palliative Care Requesting Physician: Neymar Gupta Reason for Consult: a. To assist with evaluation and management of symptoms including: pain, dyspnea. b. To assist medical decision maker(s) with: better understanding of current medical conditions; weighing benefits/burdens of medical treatment options; making medical treatment decisions. Primary Care Provider: Yfn Myles MD History of Present Illness History of Present Illness: Mr. Lima is an 82 year old male with past medical history of hypertension, hyperlipidemia, COPD, atrial fibrillation, colon cancer status post colostomy, arthritis, polyneuropathy, diabetes, elevated BMI. Patient has a history: Adenocarcinoma status post surgical resection in December 2017. Patient presented to [facility] emergency department with reports of mot feeling well. Upon EMS arrival the patient was found to be pale, diaphoretic and tachycardic. Initial ER findings: * VS: Pulse 74, respiratory rate 18, BP 70/00 * WBC 10.4, hemoglobin 12.7, hematocrit 41.3, platelet count 162, neutrophils 63.5% * PT 10.5, INR 1.0, PTT 21.7 * ABG: PH 7.17, PCO2 39, PO2 152, HCO3 13 * Sodium 142, potassium 5.4, chloride 110, carbon dioxide 17.1, BUN 39, creatinine 2.52, GFR 25, glucose 200 * Lactic acid 4.4 * Total bilirubin 1.3, AST 69, ALT 51, alkaline phosphatase 71 * Troponin 0.02 * Total protein 6.6, albumin 3.2 * Urinalysis: Small leukocyte esterase, RBC, WBC, bacteria and mucus, culture indicated. Culture pending. * Blood culture no growth 1 day. * CXR -increased density at the lateral left base representing some mild consolidation, atelectasis and/or effusion. Patient was emergently admitted in the emergency department for airway protection secondary to altered mental status and severe hemodynamic instability. Patient was admitted to ICU with acute kidney injury, respiratory failure, severe metabolic acidosis and hypotension. CT scan abdomen/ pelvis with gallstones, minimal nonspecific free peritoneal fluid and mild infiltrate lung bases. CT head no acute intracranial findings. Patient remains critically ill in intensive care, intubated on mechanical ventilation and hypotensive on pressors now with borderline urine output. Nephrology, Dr. Sims was consulted for evaluation of acute kidney injury most likely related to hemodynamic issues may have progressed to ATN. Recommendations to continue IV hydration and monitoring. Palliative care is consulted to assist with further clarification of medical treatment goals. Function/Cognitive Trajectory: Patient has had some recent decline including weakness, not feeling well. Review of Systems unobtainable due to endotracheal tube, unobtainable due to mental status (ROS obtained from EMR review and daughter report. ) Constitutional: Reports anorexia, Reports daytime sleepiness, Reports fatigue, Reports lack of energy, Reports weakness Cardiovascular: Reports rapid, pounding, or irregular heartbeat, Reports shortness of breath, Reports shortness of breath with activity Respiratory: Reports cough, Reports shortness of breath Neurologic: Reports dizziness, Reports fainting, Reports weakness Hematologic/Lymphatic: Reports easy bruising PMFSH - History History Provided By: Family Member (daughter, Marisol), Customer Account Executive / EMT - Medical History Medical History: Medical History (Last Updated 03/13/18 @ 10:53 by Samara Andrea) Afib Arthritis COPD (chronic obstructive pulmonary disease) Colon cancer Diabetes mellitus HLD (hyperlipidemia) HTN (hypertension) Polyneuropathy - Surgical History Surgical History: Surgical History (Last Updated 03/13/18 @ 10:54 by Samara Andrea) Colostomy in place H/O nasal sinusotomy History of ethmoidectomy History of umbilical hernia repair History of unicondylar arthroplasty of right knee Status post laser cataract surgery of both eyes - Family History Family History: Family History (Last Updated 03/13/18 @ 10:55 by Samara Andrea) Father Motor vehicle accident Mother Old age - Tobacco History Tobacco Use In Past 30 Days: No Smoking Status: Former smoker (Quit smoking 8 years ago) Smoking End Date: 2009 - Alcohol History How Often Do You Have a Drink Containing Alcohol: Never - Substance Use History Substance History: No History of Abuse, Unable to Obtain - Travel History Recent Travel in the [place] Within the Last 8 Weeks: No Recent Travel Out of the Country Within the Last 8 Weeks: No Medications and Allergies Active Medications: Active Medications Acetaminophen (Tylenol) 650 mg PO Q6H PRN PRN Reason: PAIN 1-10 AND/OR FEVER >101F Al Hydroxide/Mg Hydroxide (Milk Of Magnesia Liq) 30 ml PO Q12H PRN PRN Reason: Mild Constipation Albuterol (Albuterol Neb (Prn)) 2.5 mg NEB Q2HR NEB PRN PRN Reason: SHORTNESS OF BREATH/WHEEZING Albuterol (Duoneb Neb ([facility])) 1 ampul NEB Q6HR NEB [facility] Last Admin: 03/13/18 08:38 Dose: 1 ampul Bisacodyl (Dulcolax Supp) 10 mg RECTAL DAILY PRN PRN Reason: SEVERE CONSITIPATION Chlorhexidine Gluconate (Peridex 0.12% Oral Kit) 15 ml OROPHARYNG BID@0800, 2000 [facility] Last Admin: 03/13/18 09:04 Dose: 15 ml Chlorhexidine Gluconate (Chlorhexidine 2% Cloth) 3 pack TOPICAL DAILY@0400 VIJAYA Stop: 03/17/18 03:59 Last Admin: 03/13/18 04:13 Dose: 3 pack Chlorhexidine Gluconate (Chlorhexidine 2% Cloth) 3 pack TOPICAL DAILY@0400 PRN PRN Reason: Extra cloth needed Stop: 03/17/18 03:59 Famotidine (Pepcid Pf Inj) 20 mg IV.PUSH Q12HR [facility] Last Admin: 03/13/18 08:11 Dose: 20 mg Heparin Sodium (Porcine) (Heparin Inj) 5,000 units SQ Q8H [facility] Last Admin: 03/13/18 06:33 Dose: 5,000 units Hydrocortisone Sodium Succinate (Solucortef Inj) 100 mg IV.PUSH Q8HR [facility] Last Admin: 03/13/18 06:33 Dose: 100 mg Propofol (Diprivan 1000 Mg/100 Ml Inj) 1,000 mg in 100 mls @ 3 mls/hr IV.CONT TITRATE PRN; Protocol PRN Reason: Per Protocol Last Titration: 03/13/18 06:39 Dose: 0 mcg/kg/min, 0 mls/hr Norepinephrine Bitartrate 16 (mg/ Dextrose) 250 mls @ 1.87 mls/hr IV.CONT TITRATE PRN; Protocol PRN Reason: See Protocol Last Admin: 03/13/18 07:58 Dose: 2 mcg/min, 1.87 mls/hr Vasopressin 40 unit/ Dextrose 100 mls @ 6 mls/hr IV.CONT CONT VIJAYA; Protocol Last Infusion: 03/12/18 07:00 Dose: 0 units/min, 0 mls/hr Midazolam HCl (Versed Inj) 50 mg in 50 mls @ 2 mls/hr IV.CONT TITRATE PRN; Protocol PRN Reason: Per Protocol Dopamine HCl 1,600 mg/ Sodium (Chloride) 250 mls @ 2.13 mls/hr IV.CONT TITRATE PRN; Protocol PRN Reason: See protocol Piperacillin/Tazobactam/Dextrose (Zosyn 2.25 Gm Premix) 50 mls @ 100 mls/hr IV.SIG Q6H [facility] Last Admin: 03/13/18 08:12 Dose: 100 mls/hr Sodium Chloride (1/2 Normal Saline Inj) 1,000 mls @ 100 mls/hr IV.CONT .Q10H [facility] Last Admin: 03/13/18 03:21 Dose: 100 mls/hr Lactulose (Lactulose Liq) 30 ml PO DAILY PRN PRN Reason: SEVERE CONSITIPATION Lorazepam (Ativan Inj) 2 mg IV.PUSH Q4H PRN PRN Reason: SEDATION Lorazepam (Ativan Inj) 2 mg IV.PUSH STAT [facility] Lorazepam (Ativan Inj) 2 mg IV.PUSH Q2H PRN PRN Reason: AGITATION Last Admin: 03/13/18 06:33 Dose: 2 mg Ondansetron HCl (Zofran Odt) 4 mg PO Q6H PRN PRN Reason: NAUSEA OR VOMITING Senna/Docusate Sodium (Krystin-Colace) 1 tab PO BID [facility] Last Admin: 03/13/18 08:12 Dose: 1 tab Sennosides (Senokot) 17.2 mg PO Q12H PRN PRN Reason: Moderate Constipation Sodium Chloride (Ns Flush) 2 ml IV.FLUSH BID [facility] Last Admin: 03/13/18 07:59 Dose: 2 ml Sodium Chloride (Ns Flush) 2 ml IV.FLUSH PRN PRN PRN Reason: FLUSH AFTER USING IV ACCESS Terbutaline Sulfate (Brethine Inj) 1 mg SQ UNSCH PRN PRN Reason: For Extravasation Terbutaline Sulfate (Brethine Inj) 1 mg SQ ONCE PRN PRN Reason: Extravasation Allergies Allergy/AdvReac Type Severity Reaction Status Date / Time aspirin Allergy Mild HEART RATE Unverified 02/06/18 11:37 INCREASES caffeine Allergy Mild HEART RATE Unverified 02/06/18 11:37 INCREASES Home Medications Medication Instructions Recorded Confirmed Type hydrochlorothiazide 25 mg PO QAM 03/12/18 03/12/18 History lisinopril 5 mg PO DAILY 03/12/18 03/12/18 History metoprolol tartrate 50 mg PO BID 03/12/18 03/12/18 History verapamil 240 mg PO QAM 03/12/18 03/12/18 History Advance Directives Living Will: No Healthcare Surrogate: No Power of Lasting Room Supervisor: No Today's verbally stated goals: Patient sedated on mech vent unable to answer questions. Family/friends goals: Spoke with daughter Marisol, she will attempt to find contact information for her brothers and provide palliative care numbers. Family meeting to be arranged once health care proxy decision makers have been determined. Ethical and Legal Issues: No known concerns at this time. Physical Exam Vital Signs: Vital Signs - 24 hr 03/12/18 10:00 03/12/18 10:01 03/12/18 11:00 Temperature 96.4 F L 96.8 F L Pulse Rate 68 68 66 Respiratory Rate 18 18 18 Blood Pressure 122/61 115/69 100/51 L Pulse Oximetry 100 100 100 03/12/18 11:01 03/12/18 11:54 03/12/18 12:00 Temperature 97.2 F L Pulse Rate 66 64 Respiratory Rate 18 18 19 Blood Pressure 96/61 L 98/52 L Pulse Oximetry 100 100 100 03/12/18 12:25 03/12/18 13:00 03/12/18 14:00 Temperature Pulse Rate 68 74 74 Respiratory Rate 23 19 Blood Pressure 98/54 L 142/68 H Pulse Oximetry 100 100 03/12/18 14:01 03/12/18 14:25 03/12/18 14:47 Temperature Pulse Rate 74 74 85 Respiratory Rate 19 20 Blood Pressure 150/73 H 165/95 H Pulse Oximetry 100 100 03/12/18 15:00 03/12/18 15:01 03/12/18 16:00 Temperature 99.1 F 99.1 F Pulse Rate 77 77 78 Respiratory Rate 19 20 19 Blood Pressure 100/50 L 93/53 L 132/68 Pulse Oximetry 100 100 100 03/12/18 16:01 03/12/18 16:12 03/12/18 16:52 Temperature Pulse Rate 78 78 Respiratory Rate 19 19 Blood Pressure 125/78 Pulse Oximetry 100 100 03/12/18 16:53 03/12/18 17:00 03/12/18 18:00 Temperature 99.3 F 99.3 F Pulse Rate 78 76 79 Respiratory Rate 19 18 18 Blood Pressure 128/64 101/62 Pulse Oximetry 100 100 03/12/18 18:08 03/12/18 19:00 03/12/18 20:00 Temperature 99.7 F H Pulse Rate 79 68 81 Respiratory Rate 32 H 20 Blood Pressure 101/62 180/86 H 142/71 H Pulse Oximetry 100 100 03/12/18 20:49 03/12/18 21:00 03/12/18 22:00 Temperature Pulse Rate 81 81 79 Respiratory Rate 23 18 19 Blood Pressure 141/66 H 140/63 Pulse Oximetry 100 99 99 03/12/18 23:00 03/12/18 23:49 03/13/18 00:00 Temperature 99.1 F Pulse Rate 79 80 Respiratory Rate 19 19 21 Blood Pressure 141/72 H 145/69 H Pulse Oximetry 99 100 100 03/13/18 01:00 03/13/18 02:00 03/13/18 03:00 Temperature Pulse Rate 83 81 82 Respiratory Rate 20 19 20 Blood Pressure 139/79 144/69 H 147/72 H Pulse Oximetry 97 97 97 03/13/18 03:31 03/13/18 04:00 03/13/18 05:00 Temperature 98.2 F Pulse Rate 82 82 79 Respiratory Rate 20 18 19 Blood Pressure 153/69 H 162/72 H Pulse Oximetry 97 97 98 03/13/18 06:00 03/13/18 07:00 03/13/18 08:00 Temperature 97.5 F L 98.8 F Pulse Rate 90 78 73 Respiratory Rate 25 H 18 18 Blood Pressure 172/90 H 121/63 156/65 H Pulse Oximetry 99 98 100 03/13/18 08:38 Temperature Pulse Rate 74 Respiratory Rate 18 Blood Pressure Pulse Oximetry 99 I&O: Intake & Output 03/11/18 03/12/18 03/13/18 03/14/18 06:59 06:59 06:59 06:59 Intake Total 200 / 200 4200 / 4200 250 / 250 Output Total 0 / 0 1100 / 1100 90 / 90 Balance 200 / 200 3100 / 3100 160 / 160 Weight 76 kg 118 kg Physical Exam: CONSTITUTIONAL/GENERAL: This is an overweight, critically ill patient, on mechanical ventilation. TUBES/LINES/DRAINS: ETT, OG, left IJ central line, left AC PIV, left hand A-line , bilateral soft wrist restraints, right femoral central line, Barker. SKIN: No jaundice, rashes, or lesions. Ecchymoses on upper extremities. No wounds seen anteriorly. Skin temperature appropriate. Not diaphoretic. HEAD: Atraumatic. Normocephalic. EYES: eyes closed. ENT: Unable to assess hearing given clinical condition. Nose without bleeding or purulent drainage. Throat difficult to visualize secondary to tubes. NECK: Trachea midline. CARDIOVASCULAR: Regular rate and rhythm without murmurs, gallops, or rubs. RESPIRATORY/CHEST: On mechanical vent, FiO2 40% PEEP 5. Breath sounds equal bilaterally. No wheezes, rales, or rhonchi. GASTROINTESTINAL: Abdomen soft, protuberant. Bowel sluggish. Colostomy with pink stoma, scant drainage. GENITOURINARY: Without palpable bladder distension. Barker catheter in place, scant urine output. MUSCULOSKELETAL: Extremities without clubbing, cyanosis, or edema. No mottling or clubbing. LYMPHATICS: Not examined. NEUROLOGICAL: Stirs slightly to voice and exam. Does not follow commands. Withdraws to noxious stimuli. PSYCHIATRIC: Lightly sedated. No apparent hallucinations or other psychotic thought process. Diagnostic Tests Laboratory: Laboratory Results - last 72 hr 03/11/18 03/11/18 03/11/18 20:00 20:00 20:00 WBC 10.4 RBC 6.53 H Hgb 12.7 L Hct 41.3 MCV 63.3 L MCH 19.4 L MCHC 30.7 L RDW 19.2 H Plt Count 162 MPV 8.8 Prelim Diff (Auto) Neut % (Auto) 63.5 Lymph % (Auto) 29.8 Esmeralda % (Auto) 5.7 Eos % (Auto) 0.5 Baso % (Auto) 0.5 Neut # (Auto) 6.6 Lymph # (Auto) 3.1 Esmeralda # (Auto) 0.6 Eos # (Auto) 0.0 Baso # (Auto) 0.1 WBC Differential . Diff Scan Differential Comment Auto diff final Platelet Estimate Platelet Morphology PT 10.5 INR 1.0 APTT 21.7 L Puncture Site Patient Temperature O2 Saturation ABG pH ABG pCO2 ABG pO2 ABG HCO3 ABG O2 Content ABG Base Excess ABG Methemoglobin Santiago Test Hemoglobin Carboxyhemoglobin O2 Delivery Device Liter Flow Vent Setting Inspired O2 Critical Value Sodium Potassium Chloride Carbon Dioxide Anion Gap BUN Creatinine Estimated GFR Random Glucose Lactic Acid Calcium Prot Corrected Calcium Phosphorus Magnesium 2.1 Total Bilirubin AST ALT Alkaline Phosphatase Troponin I 0.02 Total Protein Albumin Prealbumin Urine Color Urine Clarity Urine pH Ur Specific Raymond Urine Protein Urine Glucose (UA) Urine Ketones Urine Occult Blood Urine Nitrate Urine Bilirubin Urine Urobilinogen Ur Leukocyte Esterase Urine RBC Urine WBC Ur Squamous Epith Cells Ur Transition Epith Cell Amorphous Sediment Urine Bacteria Urine Mucus Micro UA Comment Urine Eosinophils Nasal Screen MRSA (PCR) Complement C3 Complement C4 Blood Type Antibody Screen MTS Gel Crossmatch 03/11/18 03/11/18 03/11/18 20:00 20:00 20:00 WBC RBC Hgb Hct MCV MCH MCHC RDW Plt Count MPV Prelim Diff (Auto) Neut % (Auto) Lymph % (Auto) Esmeralda % (Auto) Eos % (Auto) Baso % (Auto) Neut # (Auto) Lymph # (Auto) Esmeralda # (Auto) Eos # (Auto) Baso # (Auto) WBC Differential Diff Scan Differential Comment Platelet Estimate Platelet Morphology PT INR APTT Puncture Site Patient Temperature O2 Saturation ABG pH ABG pCO2 ABG pO2 ABG HCO3 ABG O2 Content ABG Base Excess ABG Methemoglobin Santiago Test Hemoglobin Carboxyhemoglobin O2 Delivery Device Liter Flow Vent Setting Inspired O2 Critical Value Sodium 142 Potassium 5.4 H Chloride 110 H Carbon Dioxide 17.1 L Anion Gap 15 BUN 39 H Creatinine 2.52 H Estimated GFR 25 L Random Glucose 200 H Lactic Acid 4.4 H* Calcium 8.8 Prot Corrected Calcium Phosphorus Magnesium Total Bilirubin 1.3 H AST 69 H ALT 51 Alkaline Phosphatase 71 Troponin I Total Protein 6.6 Albumin 3.2 L Prealbumin Urine Color Urine Clarity Urine pH Ur Specific Raymond Urine Protein Urine Glucose (UA) Urine Ketones Urine Occult Blood Urine Nitrate Urine Bilirubin Urine Urobilinogen Ur Leukocyte Esterase Urine RBC Urine WBC Ur Squamous Epith Cells Ur Transition Epith Cell Amorphous Sediment Urine Bacteria Urine Mucus Micro UA Comment Urine Eosinophils Nasal Screen MRSA (PCR) Complement C3 Complement C4 Blood Type B Positive Antibody Screen Negative MTS Gel Crossmatch See Detail 03/11/18 03/11/18 03/11/18 20:27 21:19 22:30 WBC RBC Hgb Hct MCV MCH MCHC RDW Plt Count MPV Prelim Diff (Auto) Neut % (Auto) Lymph % (Auto) Esmeralda % (Auto) Eos % (Auto) Baso % (Auto) Neut # (Auto) Lymph # (Auto) Esmeralda # (Auto) Eos # (Auto) Baso # (Auto) WBC Differential Diff Scan Differential Comment Platelet Estimate Platelet Morphology PT INR APTT Puncture Site Art line Art line Patient Temperature 98.6 98.6 O2 Saturation 99 97 ABG pH 7.28 L* 7.17 L* ABG pCO2 30 L 39 ABG pO2 307 H 152 H ABG HCO3 13 L* 13 L* ABG O2 Content 17.5 19.5 ABG Base Excess -12.2 L -13.5 L ABG Methemoglobin 0.4 0.5 Santiago Test Hemoglobin 12.1 14.1 Carboxyhemoglobin 0.6 0.4 O2 Delivery Device Nrb Vent Liter Flow 15.00 Vent Setting Prvc/ac Inspired O2 100 50 Critical Value Yes Yes Sodium Potassium Chloride Carbon Dioxide Anion Gap BUN Creatinine Estimated GFR Random Glucose Lactic Acid Calcium Prot Corrected Calcium Phosphorus Magnesium Total Bilirubin AST ALT Alkaline Phosphatase Troponin I Total Protein Albumin Prealbumin Urine Color Urine Clarity Urine pH Ur Specific Raymond Urine Protein Urine Glucose (UA) Urine Ketones Urine Occult Blood Urine Nitrate Urine Bilirubin Urine Urobilinogen Ur Leukocyte Esterase Urine RBC Urine WBC Ur Squamous Epith Cells Ur Transition Epith Cell Amorphous Sediment Urine Bacteria Urine Mucus Micro UA Comment Urine Eosinophils Nasal Screen MRSA (PCR) Not detected Complement C3 Complement C4 Blood Type Antibody Screen MTS Gel Crossmatch 03/12/18 03/12/18 03/12/18 02:28 03:31 03:31 WBC 19.5 H D RBC 7.20 H Hgb 14.4 Hct 46.5 MCV 64.6 L MCH 20.0 L MCHC 31.0 L RDW 21.3 H Plt Count 117 L MPV 8.7 Prelim Diff (Auto) Slide review pending Neut % (Auto) 71.8 H Lymph % (Auto) 23.1 Esmeralda % (Auto) 4.9 Eos % (Auto) 0.1 Baso % (Auto) 0.1 Neut # (Auto) 14.0 H Lymph # (Auto) 4.5 Esmeralda # (Auto) 0.9 Eos # (Auto) 0.0 Baso # (Auto) 0.0 WBC Differential . Diff Scan Auto diff confirmed Differential Comment . Platelet Estimate Low L Platelet Morphology Enlarged H PT INR APTT Puncture Site Patient Temperature O2 Saturation ABG pH ABG pCO2 ABG pO2 ABG HCO3 ABG O2 Content ABG Base Excess ABG Methemoglobin Santiago Test Hemoglobin Carboxyhemoglobin O2 Delivery Device Liter Flow Vent Setting Inspired O2 Critical Value Sodium Potassium Chloride Carbon Dioxide Anion Gap BUN Creatinine Estimated GFR Random Glucose Lactic Acid 3.3 H Calcium Prot Corrected Calcium Phosphorus Magnesium Total Bilirubin AST ALT Alkaline Phosphatase Troponin I 0.07 H Total Protein Albumin Prealbumin Urine Color Urine Clarity Urine pH Ur Specific Raymond Urine Protein Urine Glucose (UA) Urine Ketones Urine Occult Blood Urine Nitrate Urine Bilirubin Urine Urobilinogen Ur Leukocyte Esterase Urine RBC Urine WBC Ur Squamous Epith Cells Ur Transition Epith Cell Amorphous Sediment Urine Bacteria Urine Mucus Micro UA Comment Urine Eosinophils Nasal Screen MRSA (PCR) Complement C3 Complement C4 Blood Type Antibody Screen MTS Gel Crossmatch 03/12/18 03/12/18 03/12/18 03:31 03:31 05:44 WBC RBC Hgb Hct MCV MCH MCHC RDW Plt Count MPV Prelim Diff (Auto) Neut % (Auto) Lymph % (Auto) Esmeralda % (Auto) Eos % (Auto) Baso % (Auto) Neut # (Auto) Lymph # (Auto) Esmeralda # (Auto) Eos # (Auto) Baso # (Auto) WBC Differential Diff Scan Differential Comment Platelet Estimate Platelet Morphology PT 11.9 H INR 1.2 APTT 23.3 L Puncture Site Art line Patient Temperature 98.6 O2 Saturation 96 ABG pH 7.37 L ABG pCO2 46 H ABG pO2 120 ABG HCO3 26 ABG O2 Content 20.5 H ABG Base Excess 1.1 ABG Methemoglobin 1.3 Santiago Test Present Hemoglobin 15.1 Carboxyhemoglobin 0.8 O2 Delivery Device Ventilator Liter Flow Vent Setting See comments Inspired O2 50 Critical Value No Sodium 145 Potassium 4.6 D Chloride 109 H Carbon Dioxide 26.1 D Anion Gap 10 BUN 43 H Creatinine 2.84 H Estimated GFR 21 L Random Glucose 168 H Lactic Acid Calcium 7.5 L D Prot Corrected Calcium Phosphorus 4.3 Magnesium 1.9 Total Bilirubin 2.9 H AST 893 H ALT 510 H Alkaline Phosphatase 94 Troponin I Total Protein 5.9 L D Albumin 3.0 L Prealbumin 22 Urine Color Urine Clarity Urine pH Ur Specific Raymond Urine Protein Urine Glucose (UA) Urine Ketones Urine Occult Blood Urine Nitrate Urine Bilirubin Urine Urobilinogen Ur Leukocyte Esterase Urine RBC Urine WBC Ur Squamous Epith Cells Ur Transition Epith Cell Amorphous Sediment Urine Bacteria Urine Mucus Micro UA Comment Urine Eosinophils Nasal Screen MRSA (PCR) Complement C3 Complement C4 Blood Type Antibody Screen MTS Gel Crossmatch 03/12/18 03/12/18 03/12/18 08:19 08:45 15:00 WBC 11.3 H RBC 6.72 H Hgb 13.5 Hct 43.4 MCV 64.6 L MCH 20.1 L MCHC 31.1 L RDW 20.9 H Plt Count 90 L MPV 9.0 Prelim Diff (Auto) Slide review pending Neut % (Auto) 72.7 H Lymph % (Auto) 19.4 Esmeralda % (Auto) 7.3 Eos % (Auto) 0.2 Baso % (Auto) 0.4 Neut # (Auto) 8.2 H Lymph # (Auto) 2.2 Esmeralda # (Auto) 0.8 Eos # (Auto) 0.0 Baso # (Auto) 0.0 WBC Differential . Diff Scan Auto diff confirmed Differential Comment . Platelet Estimate Platelet Morphology PT INR APTT Puncture Site Patient Temperature O2 Saturation ABG pH ABG pCO2 ABG pO2 ABG HCO3 ABG O2 Content ABG Base Excess ABG Methemoglobin Santiago Test Hemoglobin Carboxyhemoglobin O2 Delivery Device Liter Flow Vent Setting Inspired O2 Critical Value Sodium Potassium Chloride Carbon Dioxide Anion Gap BUN Creatinine Estimated GFR Random Glucose Lactic Acid Calcium Prot Corrected Calcium Phosphorus Magnesium Total Bilirubin AST ALT Alkaline Phosphatase Troponin I 0.11 H Total Protein Albumin Prealbumin Urine Color Yellow Urine Clarity Hazy H Urine pH 5.0 Ur Specific Raymond 1.010 Urine Protein 100 H Urine Glucose (UA) 50 Urine Ketones Negative Urine Occult Blood Large H Urine Nitrate Negative Urine Bilirubin Negative Urine Urobilinogen Less than 2 Ur Leukocyte Esterase Small H Urine RBC 131 H Urine WBC 42 H Ur Squamous Epith Cells 1 Ur Transition Epith Cell <1 Amorphous Sediment Occasional H Urine Bacteria Moderate H Urine Mucus Few H Micro UA Comment Cath-culture ind Urine Eosinophils Nasal Screen MRSA (PCR) Complement C3 Complement C4 Blood Type Antibody Screen MTS Gel Crossmatch 03/12/18 03/12/18 03/12/18 15:00 15:00 17:15 WBC RBC Hgb Hct MCV MCH MCHC RDW Plt Count MPV Prelim Diff (Auto) Neut % (Auto) Lymph % (Auto) Esmeralda % (Auto) Eos % (Auto) Baso % (Auto) Neut # (Auto) Lymph # (Auto) Esmeralda # (Auto) Eos # (Auto) Baso # (Auto) WBC Differential Diff Scan Differential Comment Platelet Estimate Platelet Morphology PT INR APTT Puncture Site Patient Temperature O2 Saturation ABG pH ABG pCO2 ABG pO2 ABG HCO3 ABG O2 Content ABG Base Excess ABG Methemoglobin Santiago Test Hemoglobin Carboxyhemoglobin O2 Delivery Device Liter Flow Vent Setting Inspired O2 Critical Value Sodium 147 H Potassium 4.3 Chloride 108 H Carbon Dioxide 28.7 Anion Gap 10 BUN 45 H Creatinine 2.98 H Estimated GFR 20 L Random Glucose 114 H Lactic Acid 2.0 Calcium 6.9 L* Prot Corrected Calcium 7.9 L Phosphorus Magnesium Total Bilirubin AST ALT Alkaline Phosphatase Troponin I Total Protein 5.2 L D Albumin Prealbumin Urine Color Urine Clarity Urine pH Ur Specific Raymond Urine Protein Urine Glucose (UA) Urine Ketones Urine Occult Blood Urine Nitrate Urine Bilirubin Urine Urobilinogen Ur Leukocyte Esterase Urine RBC Urine WBC Ur Squamous Epith Cells Ur Transition Epith Cell Amorphous Sediment Urine Bacteria Urine Mucus Micro UA Comment Urine Eosinophils None seen Nasal Screen MRSA (PCR) Complement C3 Complement C4 Blood Type Antibody Screen MTS Gel Crossmatch 03/13/18 03/13/18 04:52 04:52 WBC 17.6 H D RBC 6.90 H Hgb 14.0 Hct 44.4 MCV 64.3 L MCH 20.2 L MCHC 31.5 L RDW 20.7 H Plt Count 124 L D MPV 9.2 Prelim Diff (Auto) Neut % (Auto) 75.6 H Lymph % (Auto) 21.0 Esmeralda % (Auto) 3.3 Eos % (Auto) 0.0 Baso % (Auto) 0.1 Neut # (Auto) 13.3 H Lymph # (Auto) 3.7 Esmeralda # (Auto) 0.6 Eos # (Auto) 0.0 Baso # (Auto) 0.0 WBC Differential . Diff Scan Differential Comment Auto diff final Platelet Estimate Platelet Morphology PT INR APTT Puncture Site Patient Temperature O2 Saturation ABG pH ABG pCO2 ABG pO2 ABG HCO3 ABG O2 Content ABG Base Excess ABG Methemoglobin Santiago Test Hemoglobin Carboxyhemoglobin O2 Delivery Device Liter Flow Vent Setting Inspired O2 Critical Value Sodium 145 Potassium 4.1 Chloride 105 Carbon Dioxide 27.7 Anion Gap 12 BUN 51 H Creatinine 3.33 H Estimated GFR 18 L Random Glucose 152 H Lactic Acid Calcium 7.6 L Prot Corrected Calcium Phosphorus 4.7 Magnesium Total Bilirubin 1.8 H AST 211 H ALT 360 H Alkaline Phosphatase 81 Troponin I Total Protein 6.1 L D Albumin 3.0 L Prealbumin Urine Color Urine Clarity Urine pH Ur Specific Raymond Urine Protein Urine Glucose (UA) Urine Ketones Urine Occult Blood Urine Nitrate Urine Bilirubin Urine Urobilinogen Ur Leukocyte Esterase Urine RBC Urine WBC Ur Squamous Epith Cells Ur Transition Epith Cell Amorphous Sediment Urine Bacteria Urine Mucus Micro UA Comment Urine Eosinophils Nasal Screen MRSA (PCR) Complement C3 72 L Complement C4 18 Blood Type Antibody Screen MTS Gel Crossmatch Result Diagrams: 03/13/18 04:52 03/13/18 04:52 Microbiology: Microbiology 03/11/18 20:00 Aerobic Blood Culture - Preliminary Blood - Peripheral No growth in 1 day Anaerobic Blood Culture - Preliminary No growth in 1 day 03/11/18 20:00 Aerobic Blood Culture - Preliminary Blood - Peripheral No growth in 1 day Anaerobic Blood Culture - Preliminary No growth in 1 day 03/12/18 08:16 Gram Stain - Final Sputum - Endotracheal Imaging: Abdomen/Pelvis CT 03/12/18 22:23 CONCLUSION: 1. Gallstones. 2. Minimal nonspecific free peritoneal fluid. 3. Mild infiltrate in the lung bases. Head CT 03/12/18 22:57 CONCLUSION: No acute intracranial findings. Chest X-Ray 03/13/18 00:00 CONCLUSION: No appreciable change. Procedures: * 03/11/18: Intubated, right femoral central line, left IJ central line placed. Patient/Family Conference Present at Family Conference: Spoke with daughter, Yvette Tyson via telephone. She indicates that she has 1 sister and 4 brothers. She will attempt to find contact information for her brothers. She will ask all of her siblings to call palliative care to determine whether or not they wish to participate in healthcare proxy decision making. Will arrange family meeting once we have been able to determine which of the patient's children will want to participate in making medical decisions. Should also be noted that 1 of patient's sons Hari has severe autism and will not be able to participate in making decisions. Issues Discussed: * Palliative care role, purpose, approach * Additional medical, psychosocial, and spiritual history * Patients general health, functional status, and cognitive changes in the months leading up to the current hospitalization * Patient/family understanding of the current medical problems * Patient/family understanding of prognosis * Patients goals of care as best understood from advance directives and/or conversations and/or values * Current medical treatment options and benefits/burdens of those options * Likely scenarios comparing ongoing aggressive care with a transition to comfort measures only * Questions answered to the best of my ability * Palliative care contact information provided Assessment and Plan - Disease Oriented Problem List (1) Respiratory failure (2) COPD (chronic obstructive pulmonary disease) (3) Hypotension (4) Acute renal insufficiency (5) Hypernatremia (6) Metabolic acidosis - Symptom Scale (1) Pain 0-10 Scale: Unable to quantify (2) Dyspnea 0-10 Scale: Unable to quantify Pertinent Non-Medical Issues: Psychosocial: . Has 2 daughters (Marisol and Lorie) and 4 sons ( Inderjit, Aidan, Edgard Blair and Yo). Family reports Yo has severe autism, not capacitated. Spiritual: Unknown. Legal: Patient is not capacitated to make his own healthcare decisions. No written advanced directives. According to [place] statutes, healthcare proxy decision making falls to the majority of adult children. Patient has 2 daughters and 4 sons. Attempting to reach children to determine who wishes to participate in proxy decision making. Ethical issues impacting care: No known concerns at this time. Important Contacts: * Marisol Dick, daughter: [phone] * Lorie Timmons, daughter: [phone] Prognosis: Mr. Lima is an 82-year-old male with recent diagnosis of colon cancer status post surgical resection, COPD, hypertension, hyperlipidemia, atrial fibrillation , arthritis, polyneuropathy, diabetes and elevated BMI patient was admitted with respiratory failure, hypotension, acute kidney injury requiring pressor support, mechanical ventilation and now possible need for hemodialysis. Patient remains critically ill and high risk for further setbacks, decline or even . Code Status: Full Code Plan: * Decision Maker: Patient is not capacitated to make his own healthcare decisions. No written advanced directives. According to [place] statutes, healthcare proxy decision making falls to the majority of adult children. Patient has 2 daughters and 4 sons. 1 son, Yo with severe autism and unable to participate. ACCURINT search pending. Attempting to reach children to determine who wishes to participate in proxy decision making. * FULL CODE * 03/13/18: Palliative care spoke with daughterMarisol via telephone. She indicates that she has 1 sister and 4 brothers. She will attempt to find contact information for her brothers. She will ask all of her siblings to call palliative care to determine whether or not they wish to participate in healthcare proxy decision making. Will arrange family meeting once we have been able to determine which of the patient's children will want to participate in making medical decisions. Should also be noted that 1 of patient's sons Hari has severe autism and will not be able to participate in making decisions. * 03/13/18: Case management consulted to request ACCURINT report to search for sons contact information. * SYMPTOMS: Pain: sources may include cancer, tubes, lines, bedbound status. Hypotensive. On Low dose Versed. No obvious signs of pain during my visit. Will monitor. Dyspnea: on mech vent. FiO2 40%, PEEP 5. * Palliative care number provided. * Palliative care will continue to follow throughout hospital course to assist with symptom management and clarification of goals as needed. Appreciation Thank you for the opportunity to participate in the care of Edgard Lima. Attestation Attestation: To help prompt me to consider important information that might be impacting today's encounter and assessment, information from prior notes written by myself or my colleagues may have been "brought forward" into today's note. My signature on this note, however, is an attestation that I personally performed the exam, history, and/or decision-making noted today, and, unless otherwise indicated, the interactions with patient, family, and staff as well as the review of records all occurred today. I also attest that the listed assessment and stated plan reflect my best clinical judgment today based on the combination of historical information, prior notes, and today's exam/ interactions. When time spent is documented, it refers only to time spent today by the signer, or if indicated, combined time spent today by collaborating physician/nurse practitioner.
--- NOTE | 2018-03-13 11:41 | XR ---
EXAM DATE: 03/13/2018 11:14 AM EDT AGE/SEX: 82 years / Male INDICATIONS: . Shortness of breath. Mechanical ventilation. CLINICAL DATA: This is the patient's subsequent encounter. Patient reports that signs and symptoms h ave been present for 3 days and indicates a pain score of Nonresponsive. MEDICAL/SURGICAL HISTORY: . Carcinoma, colon. Chronic obstructive pulmonary disease. . Colost jonny. COMPARISON: C, CHEST 1V SINGLE AP, 03/11/2018. . FINDINGS: NG tube is present with tip in the stomach. NG tube is present with tip not visualized. ET tube is pr esent with tip overlapping approximately 2 above the kenji. There is mild haziness overlapping the l thien bases bilaterally probably technical. Focal consolidation is not seen. No definite pneumothorax i s seen for technique. CONCLUSION: No appreciable change. Electronically signed by: Neto Wolfe MD 03/13/2018 11:39 AM EDT
--- NOTE | 2018-03-13 12:04 | ECG ---
Date Performed: 03/12/2018 Time Performed: 07:37:27 PTAGE: 82 years EKG: Sinus rhythm MARKED LEFT AXIS DEVIATION RIGHT BUNDLE BRANCH BLOCK ABNORMAL ECG PREVIOUS TRACING : 03/11/2018 20.05 DOCTOR: Ladonna Pope Interpretating Date/Time 03/13/2018 12:02:20
--- NOTE | 2018-03-13 12:12 | ECG ---
Date Performed: 03/11/2018 Time Performed: 20:05:20 PTAGE: 82 years EKG: ATRIAL FLUTTER/TACHYCARDIA WITH ABERRANT CONDUCTION OR VENTRICULAR PREMATURE COMPLEXES LORA ED LEFT AXIS DEVIATION RIGHT BUNDLE BRANCH BLOCK ABNORMAL ECG INTERPRETATION BASED ON A DEFAULT AGE O F 39 YEARS NO PREVIOUS TRACING DOCTOR: Ladonna Pope Interpretating Date/Time 03/13/2018 12:05:41
--- NOTE | 2018-03-13 12:32 | P.PNNP ---
Subjective Interval history: This patient is an 82-year-old male who currently can provide no medical history. History obtained primarily from the medical records both current and previous. The patient has a history of COPD, hypertension as well as diabetes mellitus. 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 From the records I reviewed the patient may have inadvertently taken higher doses of hypertensive medications and prescribed were advised. Subsequently presented to the hospital with hypotension and also evidence of acute renal insufficiency with a creatinine of 2.5 to, potassium of 5.4 and a total CO2 of only 17.1. Patient noted to have had a creatinine level ranging between 1.3 and 0.January. Earlier this admission patient developed worsening hypotension with bradycardia subsequently improved. Has been receiving IV hydration and bicarbonate but despite this creatinine level has deteriorated to 2.98. Acid-base status improved however. Currently on a ventilator. CT scan performed during this admission showed no evidence of hydronephrosis. Patient remains intubated on ventilatory support. Nonverbal.. Physical Exam Vital signs: Vital Signs 03/12/18 13:00 03/12/18 14:00 03/12/18 14:01 Temperature Pulse Rate 74 74 74 Respiratory Rate 23 19 19 Blood Pressure 98/54 L 142/68 H 150/73 H Pulse Oximetry 100 100 100 03/12/18 14:25 03/12/18 14:47 03/12/18 15:00 Temperature 99.1 F Pulse Rate 74 85 77 Respiratory Rate 20 19 Blood Pressure 165/95 H 100/50 L Pulse Oximetry 100 100 03/12/18 15:01 03/12/18 16:00 03/12/18 16:01 Temperature 99.1 F Pulse Rate 77 78 78 Respiratory Rate 20 19 19 Blood Pressure 93/53 L 132/68 125/78 Pulse Oximetry 100 100 100 03/12/18 16:12 03/12/18 16:52 03/12/18 16:53 Temperature Pulse Rate 78 78 Respiratory Rate 19 19 Blood Pressure Pulse Oximetry 100 03/12/18 17:00 03/12/18 18:00 03/12/18 18:08 Temperature 99.3 F 99.3 F Pulse Rate 76 79 79 Respiratory Rate 18 18 Blood Pressure 128/64 101/62 101/62 Pulse Oximetry 100 100 03/12/18 19:00 03/12/18 20:00 03/12/18 20:49 Temperature 99.7 F H Pulse Rate 68 81 81 Respiratory Rate 32 H 20 23 Blood Pressure 180/86 H 142/71 H Pulse Oximetry 100 100 100 03/12/18 21:00 03/12/18 22:00 03/12/18 23:00 Temperature Pulse Rate 81 79 79 Respiratory Rate 18 19 19 Blood Pressure 141/66 H 140/63 141/72 H Pulse Oximetry 99 99 99 03/12/18 23:49 03/13/18 00:00 03/13/18 01:00 Temperature 99.1 F Pulse Rate 80 83 Respiratory Rate 19 21 20 Blood Pressure 145/69 H 139/79 Pulse Oximetry 100 100 97 03/13/18 02:00 03/13/18 03:00 03/13/18 03:31 Temperature Pulse Rate 81 82 82 Respiratory Rate 19 20 20 Blood Pressure 144/69 H 147/72 H Pulse Oximetry 97 97 97 03/13/18 04:00 03/13/18 05:00 03/13/18 06:00 Temperature 98.2 F Pulse Rate 82 79 90 Respiratory Rate 18 19 25 H Blood Pressure 153/69 H 162/72 H 172/90 H Pulse Oximetry 97 98 99 03/13/18 07:00 03/13/18 08:00 03/13/18 08:38 Temperature 97.5 F L 98.8 F Pulse Rate 78 73 74 Respiratory Rate 18 18 18 Blood Pressure 121/63 156/65 H Pulse Oximetry 98 100 99 03/13/18 10:00 03/13/18 12:00 Temperature 98 F Pulse Rate 70 70 Respiratory Rate 18 Blood Pressure 116/57 L Pulse Oximetry 100 Intake & Output 03/12/18 03/13/18 03/13/18 18:59 06:59 18:59 Intake Total 3100 / 3100 1100 / 1100 250 / 250 Output Total 365 / 365 735 / 735 365 / 365 Balance 2735 / 2735 365 / 365 -115 / -115 Weight 116 kg 118 kg Intake: IV 3100 / 3100 1100 / 1100 250 / 250 Levophed Inj 16 MG In D5W Inj 250 / 250 234 ML @ 2 MCG/MIN 1.87 mls/hr IV.CONT TITRATE PRN Rx#: [id number] Diprivan 1000 mg/100 ml Inj 1, 100 / 100 0 / 0 000 mg In 100 ml @ 5 MCG/KG/MIN 3 mls/hr IV.CONT TITRATE PRN Rx#:[id number] Sodium Bicarbonate 8.4% Inj 150 1900 / 1900 MEQ In 1/2 Normal Saline Inj 850 ML @ 75 mls/hr IV.CONT . [id number] VIJAYA Rx#:[id number] 1/2 Normal Saline Inj 1,000 ML 1000 / 1000 @ 100 mls/hr IV.CONT .Q10H VIJAYA Rx#:[id number] Zosyn 2.25 GM Premix 50 ML @ 100 / 100 100 mls/hr IV.SIG Q6H VIJAYA Rx#: [id number] Zosyn 3.375 GM Premix 50 ML @ 100 / 100 100 mls/hr IV.SIG Q6H VIJAYA Rx#: [id number] NS Inj 1,000 ML @ Wide Open IV. 1000 / 1000 SIG BOLUS ONE Rx#:[id number] Output: Urine 0 / 0 Urine Amount (Catheter) 365 / 365 735 / 735 365 / 365 Indwelling Urethral Catheter 365 / 365 735 / 735 365 / 365 Stool Amount (Stoma) 0 / 0 Right Lower Abdomen 0 / 0 Narrative: GENERAL: ET tube in place and patient is on ventilatory support. Nonverbal. SKIN: Warm and dry. HEAD: Normocephalic. EYES: No scleral icterus. No injection or drainage. NECK: Supple, trachea midline. No JVD or lymphadenopathy. CARDIOVASCULAR: Regular rate and rhythm without murmurs, gallops, or rubs. RESPIRATORY: Breath sounds equal bilaterally. No accessory muscle use. GASTROINTESTINAL: Abdomen soft, non-tender, nondistended. MUSCULOSKELETAL: No cyanosis, or edema. - Urinary Catheter Management Indwelling Urethral Catheter Cath placed during this visit: no Assessment and Plan - Assessment (1) Acute renal insufficiency Code(s): N28.9 - Disorder of kidney and ureter, unspecified Status: Acute Plan: Most likely related initially to hemodynamic issues but progressed to an acute tubal necrosis at this point in time with worsening renal disease despite IV hydration.. No felicia volume overload presently. We would continue IV hydration for the present with monitoring of volume status and renal indices. If azotemia continues to worsen however family may have to make a decision regarding renal replacement therapy. Given the acute nature of the renal insufficiency and previous baseline renal function there is potential for recovery of renal function. Medications should be adjusted for the patient's estimated GFR if clinically indicated. Avoid agents with significant potential for nephrotoxicity possible including NSAIDs for analgesia, iodine contrast agents. Gadolinium is contraindicated if the GFR is below 30. (2) Hypernatremia Code(s): E87.0 - Hyperosmolality and hypernatremia Status: Resolved Plan: At this point in time would adjust IV fluids in view of developing hyponatremia. Discontinue sodium bicarbonate as his acid-base status is improved significantly. (3) Metabolic acidosis Code(s): E87.2 - Acidosis Status: Resolved Plan: Resolved. Continue to monitor however for recurrence. Procedures - Arterial Line Size (Gauge): 18
--- NOTE | 2018-03-13 12:37 | ECHRPT ---
Indication: CPHD CONCLUSIONS Technically very difficult study, making assessment of left ventricular function and wall motion sub optimal. Mildly dilated left ventricle. Wall thickness is normal. The left ventricular systolic function is qzctfbwa-ow-mztuotc reduced with an estimated ejection fra ction in the range of 35-40%. Global hypokinesis. Mild calcification of the anterior mitral valve leaflet. Mild mitral annular calcification. Trace m itral valve regurgitation. The aortic valve is not well visualized. Mild aortic valve regurgitation. There is trace tricuspid valve regurgitation. The estimated pulmonary arterial pressure is 36 mmHg. BP: / HR: Rhythm: Sinus MEASUREMENTS (Male / Female) Normal Values Technical Quality:Fair 2D ECHO LV Diastolic Diameter PLAX 5.4 cm 4.2 - 5.9 / 3.9 - 5.3 cm LV Systolic Diameter PLAX 4.9 cm IVS Diastolic Thickness 1.0 cm 0.6 - 1.0 / 0.6 - 0.9 cm LVPW Diastolic Thickness 1.0 cm 0.6 - 1.0 / 0.6 - 0.9 cm LV Relative Wall Thickness 0.4 RV Internal Dim ED PLAX 2.8 cm LVOT Diameter 2.1 cm LA Systolic Diameter LX 3.5 cm 3.0 - 4.0 / 2.7 - 3.8 cm LV Ejection Fraction MOD BP 23.8 % >= 55 % LV Ejection Fraction MOD 4C 30.2 % LV Ejection Fraction 4C AL 31.8 % LV Ejection Fraction MOD 2C 16.4 % LV Ejection Fraction 2C AL 18.7 % M-MODE Aortic Root Diameter MM 2.3 cm LA Systolic Diameter MM 3.6 cm LA Ao Ratio MM 1.6 AV Cusp Separation MM 2.0 cm DOPPLER AV Peak Velocity 124.0 cm/s AV Peak Gradient 6.2 mmHg AI Peak Velocity 353.5 cm/s AI Peak Gradient 50.0 mmHg AI Pressure Half Time 534.0 ms LVOT Peak Velocity 86.4 cm/s LVOT Peak Gradient 3.0 mmHg AV Area Cont Eq pk 2.4 cm LV E' Lateral Velocity 6.7 cm/s LV E' Septal Velocity 5.5 cm/s TR Peak Velocity 257.0 cm/s TR Peak Gradient 26.4 mmHg Right Atrial Pressure 10.0 mmHg Pulmonary Artery Systolic Pressu 36.4 mmHg Right Ventricular Systolic Press 36.4 mmHg PV Peak Velocity 78.7 cm/s PV Peak Gradient 2.5 mmHg FINDINGS LEFT VENTRICLE Technically very difficult study, making assessment of left ventricular function and wall motion sub optimal. Mildly dilated left ventricle. Wall thickness is normal. The left ventricular systolic function is srqxrqto-uf-gdcjkyj reduced with an estimated ejection fra ction in the range of 35-40%. Global hypokinesis. RIGHT VENTRICLE Normal right ventricular size and systolic function. LEFT ATRIUM The left atrial size is normal. RIGHT ATRIUM The right atrial size is normal. ATRIAL SEPTUM Normal atrial septal thickness without atrial level shunting by limited color doppler interrogation. AORTA The aortic root and proximal ascending aorta are normal in size on limited imaging. MITRAL VALVE Mild calcification of the anterior mitral valve leaflet. Mild mitral annular calcification. Trace m itral valve regurgitation. AORTIC VALVE The aortic valve is not well visualized. Mild aortic valve regurgitation. TRICUSPID VALVE Structurally normal tricuspid valve. There is trace tricuspid valve regurgitation. The estimated pulmonary arterial pressure is 36 mmHg. PULMONARY VALVE No pulmonary valve regurgitation or stenosis. VESSELS The inferior vena cava is normal in size. PERICARDIUM No pericardial effusion. Joe Erickson MD (Electronically Signed) Final Date:13 March 2018 12:36
--- NOTE | 2018-03-13 16:39 | P.PNCC ---
Subjective Subjective Remarks/Hospital Course: 03/11: 82-year-old male presents with chief complaint of not feeling well, times today. On EMS arrival they found him pale diaphoretic tachycardic and critically ill. The patient has a history of colon cancer. According to nursing staff his family had some concern that he may intentionally took too many blood pressure medication. He was emergently intubated by ED attending for an airway protection due to altered mental status as well as severe hemodynamic instability. The patient is unable to give any additional history. No family available in the emergency department. 03/12: Remains sedated, orally intubated on mechanical ventilation. Hypotensive on pressors. Borderline urine output. 03/13: Sedated, arousable, not following commands. Remains orally intubated on mechanical ventilation. Urine output borderline. Off levophed. Objective Vital Signs / I&O: Vital Signs 03/12/18 16:52 03/12/18 16:53 03/12/18 17:00 Temperature 99.3 F Pulse Rate 78 76 Respiratory Rate 19 19 18 Blood Pressure 128/64 Pulse Oximetry 100 100 03/12/18 18:00 03/12/18 18:08 03/12/18 19:00 Temperature 99.3 F Pulse Rate 79 79 68 Respiratory Rate 18 32 H Blood Pressure 101/62 101/62 180/86 H Pulse Oximetry 100 100 03/12/18 20:00 03/12/18 20:49 03/12/18 21:00 Temperature 99.7 F H Pulse Rate 81 81 81 Respiratory Rate 20 23 18 Blood Pressure 142/71 H 141/66 H Pulse Oximetry 100 100 99 03/12/18 22:00 03/12/18 23:00 03/12/18 23:49 Temperature Pulse Rate 79 79 Respiratory Rate 19 19 19 Blood Pressure 140/63 141/72 H Pulse Oximetry 99 99 100 03/13/18 00:00 03/13/18 01:00 03/13/18 02:00 Temperature 99.1 F Pulse Rate 80 83 81 Respiratory Rate 21 20 19 Blood Pressure 145/69 H 139/79 144/69 H Pulse Oximetry 100 97 97 03/13/18 03:00 03/13/18 03:31 03/13/18 04:00 Temperature 98.2 F Pulse Rate 82 82 82 Respiratory Rate 20 20 18 Blood Pressure 147/72 H 153/69 H Pulse Oximetry 97 97 97 03/13/18 05:00 03/13/18 06:00 03/13/18 07:00 Temperature 97.5 F L Pulse Rate 79 90 78 Respiratory Rate 19 25 H 18 Blood Pressure 162/72 H 172/90 H 121/63 Pulse Oximetry 98 99 98 03/13/18 08:00 03/13/18 08:38 03/13/18 10:00 Temperature 98.8 F Pulse Rate 73 74 70 Respiratory Rate 18 18 Blood Pressure 156/65 H Pulse Oximetry 100 99 03/13/18 12:00 03/13/18 12:28 03/13/18 14:00 Temperature 98 F Pulse Rate 70 64 Respiratory Rate 18 18 Blood Pressure 116/57 L Pulse Oximetry 100 100 03/13/18 16:00 Temperature 98.9 F Pulse Rate 76 Respiratory Rate 18 Blood Pressure 130/68 Pulse Oximetry 100 Intake & Output 03/12/18 03/13/18 03/13/18 18:59 06:59 18:59 Intake Total 3100 / 3100 1100 / 1100 350 / 350 Output Total 365 / 365 735 / 735 865 / 865 Balance 2735 / 2735 365 / 365 -515 / -515 Weight 116 kg 118 kg Intake: IV 3100 / 3100 1100 / 1100 350 / 350 Levophed Inj 16 MG In D5W Inj 250 / 250 234 ML @ 2 MCG/MIN 1.87 mls/hr IV.CONT TITRATE PRN Rx#: [id number] Diprivan 1000 mg/100 ml Inj 1, 100 / 100 0 / 0 000 mg In 100 ml @ 5 MCG/KG/MIN 3 mls/hr IV.CONT TITRATE PRN Rx#:[id number] Sodium Bicarbonate 8.4% Inj 150 1900 / 1900 MEQ In 1/2 Normal Saline Inj 850 ML @ 75 mls/hr IV.CONT . [id number] VIJAYA Rx#:[id number] 1/2 Normal Saline Inj 1,000 ML 1000 / 1000 @ 100 mls/hr IV.CONT .Q10H VIJAYA Rx#:[id number] Zosyn 2.25 GM Premix 50 ML @ 100 / 100 100 / 100 100 mls/hr IV.SIG Q6H VIJAYA Rx#: [id number] Zosyn 3.375 GM Premix 50 ML @ 100 / 100 100 mls/hr IV.SIG Q6H VIJAYA Rx#: [id number] NS Inj 1,000 ML @ Wide Open IV. 1000 / 1000 SIG BOLUS ONE Rx#:[id number] Output: Urine 0 / 0 Urine Amount (Catheter) 735 / 735 865 / 865 Indwelling Urethral Catheter 365 735 / 735 865 / 865 Stool Amount (Stoma) 0 / 0 Right Lower Abdomen 0 / 0 Result Diagrams: 03/13/18 04:52 03/13/18 04:52 Imaging: Chest X-Ray 03/11/18 20:06 CONCLUSION: ET tube in a low position 1.7 cm above the kenji. Increased density at the lateral left base representing some mild consolidation , atelectasis and/or effusion. Left internal jugular central line and NG tube in good position. Abdomen/Pelvis CT 03/12/18 22:23 CONCLUSION: 1. Gallstones. 2. Minimal nonspecific free peritoneal fluid. 3. Mild infiltrate in the lung bases. Head CT 03/12/18 22:57 CONCLUSION: No acute intracranial findings. Chest X-Ray 03/13/18 00:00 CONCLUSION: No appreciable change. Objective Remarks: HEENT/ Neuro: Sedated, arousable, follows commands occasionally, orally intubated, Pallor present, no icterus, tongue/ mucosa moist Neck: No JVD Chest/Pulm: on mech vent, good air entry bilaterally, no wheezing or crackles CVS: S1-S2 regular, no murmur GI/abdomen: soft, nontender, bowel sounds sluggish. Colostomy in place Extremities: warm bilaterally, no edema Assessment and Plan - Assessment and Plan Plan: Respiratory failure -Intubated for an airway protection -Vent bundle -No weaning until neurologically and hemodynamically stable -DuoNeb scheduled and as needed COPD -No exacerbation -DuoNeb scheduled and as needed Severe metabolic acidosis -Non-anion gap -CT abdomen and pelvis unremarkable -Panculture to rule out sepsis -Lactic acidosis -IV fluid hydration -Sodium bicarbonate gtt Hypotension -Possible antihypertensive meds overdose -Central line and A-line placed in the ED -Levophed to keep map above 65 -Add dopamine on vasopressin as needed for hypotension. -Telemetry -2D echo pending -Series of troponins and EKGs to rule out ACS -Stress dose steroids Acute kidney injury -Strict I's and O's -Monitor creatinine and electrolytes -IV fluid hydration Atrial fibrillation -Rate controlled -Telemetry DVT GI prophylaxis -Teds SCDs -Heparin -Pepcid Critical Care: The total critical care time was 35 minutes. Time to perform other separately billable procedures was not included in the critical care time. Procedures - Arterial Line Size (Gauge): 18
[2018-03-14] MEDS: Sodium Chloride 0.45 % Inj 1,000 ML IV.CONT SCH (00:22)
[2018-03-14] MEDS: Piperacil/Tazo 2.25 GM Premix 50 ML IV.SIG SCH ×4 (02:47→21:06)
[2018-03-14] MEDS: Oral Hygiene Kit OROPHARYNG SCH ×5 (02:47→23:53)
[2018-03-14] MEDS: Midazolam 50 MG/50 ML Inj 50 MG/50 ML BAG IV.CONT PRN (03:23)
[2018-03-14] MEDS: Chlorhexidine Gluconate 2% 1 Pack (2 Cloths) TOPICAL SCH (05:20)
[2018-03-14] MEDS: Heparin - SQ 10,000 UNITS/ML Vial SQ SCH ×3 (05:58→21:08)
[2018-03-14] MEDS: Hydrocortisone Sod Succinate 100 MG Vial IV.PUSH SCH ×3 (05:58→21:08)
[2018-03-14 07:47] LABS: Baso % (Auto) 0.3 % (0.0-2.0); Hematocrit 40.3 % (39.0-51.0); Hemoglobin 12.9 gm/dL (13.0-17.0); Lymph # (Auto) 2.7 th/mm3 (1.0-4.8); Lymph % (Auto) 25.3 % (9.0-44.0); Mean Corpuscular Hemoglobin 20.5 pg (27.0-34.0); Mean Platelet Volume 8.8 fL (7.0-11.0); Mono # (Auto) 0.6 th/mm3 (0.0-0.9); Mono % (Auto) 5.6 % (0.0-8.0); Neut # (Auto) 7.2 th/mm3 (1.8-7.7); Neut % (Auto) 68.8 % (16.0-70.0); Platelet Count 85 th/mm3 (150-450); Red Blood Count 6.29 mil/mm3 (4.50-5.90); Red Cell Distribution Width 20.4 % (11.6-17.2); White Blood Count 10.5 th/mm3 (4.0-11.0)
[2018-03-14 08:05] LABS: Albumin 2.6 g/dL (3.4-5.0); Anion Gap 10 meq/L (5-15); Aspartate Aminotransferase 74 U/L (15-37); Blood Urea Nitrogen 47 mg/dL (7-18); Calcium 7.5 mg/dL (8.5-10.1); Carbon Dioxide 29.7 meq/L (21.0-32.0); Chloride 106 meq/L (98-107); Glomerular Filtration Rate 20 mL/min (>89); Glucose,Random 104 mg/dL (74-106); Potassium 3.6 meq/L (3.5-5.1); Sodium 146 meq/L (136-145)
[2018-03-14] MEDS: Famotidine PF Inj 20 MG/2 ML Vial IV.PUSH SCH ×2 (08:07→21:09)
[2018-03-14 08:08] LABS: Alanine Aminotransferase 221 U/L (12-78); Alkaline Phosphatase 62 U/L (45-117); Total Protein 5.6 g/dL (6.4-8.2)
[2018-03-14] MEDS: Senna/Docusate Sodium 8.6/50 MG Tablet PO SCH ×2 (08:08→21:08)
[2018-03-14] MEDS: Chlorhexidine 0.12% Oral Kit 15 ML UDC OROPHARYNG SCH ×2 (08:38→21:07)
[2018-03-14 09:02] LABS: Ovalocytes 1+; Platelet Morphology Normal (Normal)
[2018-03-14] MEDS ORDERED: Dexmedetomidine Inj 200 MCG/50 ML INFUS..BTL IV.CONT PRN (11:54)
--- NOTE | 2018-03-14 12:04 | P.PNCC ---
Subjective Subjective Remarks/Hospital Course: 03/11: 82-year-old male presents with chief complaint of not feeling well, times today. On EMS arrival they found him pale diaphoretic tachycardic and critically ill. The patient has a history of colon cancer. According to nursing staff his family had some concern that he may intentionally took too many blood pressure medication. He was emergently intubated by ED attending for an airway protection due to altered mental status as well as severe hemodynamic instability. The patient is unable to give any additional history. No family available in the emergency department. 03/12: Remains sedated, orally intubated on mechanical ventilation. Hypotensive on pressors. Borderline urine output. 03/13: Sedated, arousable, not following commands. Remains orally intubated on mechanical ventilation. Urine output borderline. Off levophed. 03/14: remains intubated and deeply sedated on versed. discussed with RN: plan to wean sedation for appropriate RASS -2 goal. off vasopressors. Objective Vital Signs / I&O: Vital Signs 03/13/18 12:00 03/13/18 12:28 03/13/18 14:00 Temperature 36.6 C Pulse Rate 70 64 Respiratory Rate 18 18 Blood Pressure 116/57 L Pulse Oximetry 100 100 03/13/18 16:00 03/13/18 16:39 03/13/18 16:43 Temperature 37.2 C Pulse Rate 76 75 Respiratory Rate 18 18 18 Blood Pressure 130/68 Pulse Oximetry 100 100 03/13/18 18:00 03/13/18 20:00 03/13/18 20:29 Temperature 36.9 C Pulse Rate 70 73 Respiratory Rate 18 18 Blood Pressure 129/78 Pulse Oximetry 100 100 03/13/18 20:31 03/13/18 21:00 03/13/18 21:01 Temperature Pulse Rate 69 73 71 Respiratory Rate 18 18 18 Blood Pressure 129/68 Pulse Oximetry 99 100 03/13/18 22:00 03/13/18 22:01 03/13/18 23:00 Temperature Pulse Rate 71 71 74 Respiratory Rate 18 18 18 Blood Pressure 129/65 113/62 Pulse Oximetry 99 100 100 03/13/18 23:11 03/13/18 23:56 03/14/18 00:00 Temperature 36.4 C L Pulse Rate 75 72 71 Respiratory Rate 24 18 18 Blood Pressure 120/60 135/74 120/65 Pulse Oximetry 97 100 100 03/14/18 00:12 03/14/18 00:31 03/14/18 01:00 Temperature Pulse Rate 67 68 Respiratory Rate 18 18 18 Blood Pressure 110/62 151/89 H Pulse Oximetry 99 99 100 03/14/18 01:31 03/14/18 02:00 03/14/18 02:30 Temperature Pulse Rate 66 64 63 Respiratory Rate 18 18 18 Blood Pressure 130/76 127/72 130/74 Pulse Oximetry 100 100 99 03/14/18 02:48 03/14/18 03:00 03/14/18 03:01 Temperature Pulse Rate 63 68 71 Respiratory Rate 19 21 19 Blood Pressure 123/71 Pulse Oximetry 95 97 03/14/18 03:30 03/14/18 04:00 03/14/18 04:30 Temperature 36.6 C Pulse Rate 71 75 71 Respiratory Rate 18 18 18 Blood Pressure 136/71 131/75 133/73 Pulse Oximetry 100 100 100 03/14/18 04:49 03/14/18 05:00 03/14/18 05:31 Temperature Pulse Rate 67 63 Respiratory Rate 18 18 18 Blood Pressure 131/72 135/70 Pulse Oximetry 100 100 100 03/14/18 06:00 03/14/18 06:01 03/14/18 06:30 Temperature Pulse Rate 75 72 70 Respiratory Rate 23 21 18 Blood Pressure 138/73 126/73 Pulse Oximetry 98 100 100 03/14/18 07:00 03/14/18 07:30 03/14/18 08:00 Temperature 36.6 C Pulse Rate 74 74 68 Respiratory Rate 18 18 18 Blood Pressure 143/76 H 140/80 131/74 Pulse Oximetry 100 100 100 03/14/18 08:30 03/14/18 08:32 03/14/18 09:19 Temperature Pulse Rate 65 66 Respiratory Rate 18 18 18 Blood Pressure 121/69 Pulse Oximetry 98 100 03/14/18 10:00 03/14/18 11:45 Temperature Pulse Rate 68 Respiratory Rate 18 Blood Pressure Pulse Oximetry 98 Intake & Output 03/13/18 03/14/18 03/14/18 18:59 06:59 18:59 Intake Total 1350 / 1350 300 / 300 50 / 50 Output Total 965 / 965 875 / 875 325 / 325 Balance 385 / 385 -575 / -575 -275 / -275 Weight 119 kg Intake: IV 1350 / 1350 300 / 300 50 / 50 Versed Inj 50 mg In 50 ml @ 2 100 / 100 MG/HR 2 mls/hr IV.CONT TITRATE PRN Rx#:[id number] Levophed Inj 16 MG In D5W Inj 250 / 250 234 ML @ 2 MCG/MIN 1.87 mls/hr IV.CONT TITRATE PRN Rx#: [id number] Diprivan 1000 mg/100 ml Inj 1, 100 / 100 000 mg In 100 ml @ 5 MCG/KG/MIN 3 mls/hr IV.CONT TITRATE PRN Rx#:[id number] 1/2 Normal Saline Inj 1,000 ML 1000 / 1000 @ 42 mls/hr IV.CONT .[id number] [facility] Rx#:[id number] Zosyn 2.25 GM Premix 50 ML @ 100 / 100 100 / 100 50 / 50 100 mls/hr IV.SIG Q6H [facility] Rx#: [id number] Output: Urine Amount (Catheter) 965 / 965 875 / 875 325 / 325 Indwelling Urethral Catheter 965 / 965 875 / 875 325 / 325 Stool Amount (Stoma) 0 / 0 Right Lower Abdomen 0 / 0 Result Diagrams: 03/14/18 05:40 03/14/18 05:40 Objective Remarks: gen: elderly male, lying in bed, intubated, sedated HEENT: Sedated, arousable, follows commands occasionally, orally intubated, Pallor present, no icterus, tongue/ mucosa moist Neck: No JVD Chest/Pulm: on mech vent, good air entry bilaterally, no wheezing or crackles CVS: S1-S2 regular, no murmur GI/abdomen: soft, nontender, bowel sounds sluggish. Colostomy in place Extremities: warm bilaterally, no edema Neuro: RASS -5. does not follow commands. deeply sedated. Assessment and Plan - Assessment and Plan Plan: Assessment: 82yM with severe multiorgan failure and resolving shock. remains critically ill. appreciate palliative care consultation. will attempt to wean sedation and start daily breathing trials. given multiple comorbidities and age , may be difficult to separate from mechanical ventilation. Acute metabolic encephalopathy - d/c versed given poor renal clearance, likely to contribute to delirium and encephalopathy - d/c ciwa protocol - start precedex - goal RASS -2. - frequent neuro checks Acute Hypoxic Respiratory failure -Vent bundle -once more awake will need to start SBTs daily. -DuoNeb scheduled and as needed COPD -No exacerbation -DuoNeb scheduled and as needed Severe metabolic acidosis Lactic Acidosis -Non-anion gap -CT abdomen and pelvis unremarkable -Panculture to rule out sepsis -Lactic acidosis which is downtrending. -IV fluid hydration Shock- resolved -Telemetry -2D echo: EF 35%. -Series of troponins and EKGs to rule out ACS -Stress dose steroids Acute kidney injury superimposed on CKD, unknown stage -Strict I's and O's -Monitor creatinine and electrolytes -IV fluid hydration -nephrology consult. Atrial fibrillation -Rate controlled -Telemetry Acute protein calorie malnutrition- moderate Colon cancer s/p resection - start tube feeds DVT GI prophylaxis -Teds SCDs -Heparin -Pepcid Critical Care: The total critical care time was 31 minutes. Time to perform other separately billable procedures was not included in the critical care time. Procedures - Arterial Line Size (Gauge): 18
--- NOTE | 2018-03-14 12:05 | P.PNNP ---
Subjective Interval history: This patient is an 82-year-old male who currently can provide no medical history. History obtained primarily from the medical records both current and previous. The patient has a history of COPD, hypertension as well as diabetes mellitus. 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 From the records I reviewed the patient may have inadvertently taken higher doses of hypertensive medications and prescribed were advised. Subsequently presented to the hospital with hypotension and also evidence of acute renal insufficiency with a creatinine of 2.5 to, potassium of 5.4 and a total CO2 of only 17.1. Patient noted to have had a creatinine level ranging between 1.3 and 0.January. Earlier this admission patient developed worsening hypotension with bradycardia subsequently improved. Has been receiving IV hydration and bicarbonate but despite this creatinine level has deteriorated to 2.98. Acid-base status improved however. Currently on a ventilator. CT scan performed during this admission showed no evidence of hydronephrosis. 03/13/18 Patient remains intubated on ventilatory support. Nonverbal 03/14/18 Still intubated. SCr improved slightly, but UOP marginal. No family present. <Deb Garcia R - Last Filed: 03/14/18 11:57> Physical Exam Vital signs: Vital Signs 03/13/18 12:00 03/13/18 12:28 03/13/18 14:00 Temperature 98 F Pulse Rate 70 64 Respiratory Rate 18 18 Blood Pressure 116/57 L Pulse Oximetry 100 100 03/13/18 16:00 03/13/18 16:39 03/13/18 16:43 Temperature 98.9 F Pulse Rate 76 75 Respiratory Rate 18 18 18 Blood Pressure 130/68 Pulse Oximetry 100 100 03/13/18 18:00 03/13/18 20:00 03/13/18 20:29 Temperature 98.5 F Pulse Rate 70 73 Respiratory Rate 18 18 Blood Pressure 129/78 Pulse Oximetry 100 100 03/13/18 20:31 03/13/18 21:00 03/13/18 21:01 Temperature Pulse Rate 69 73 71 Respiratory Rate 18 18 18 Blood Pressure 129/68 Pulse Oximetry 99 100 03/13/18 22:00 03/13/18 22:01 03/13/18 23:00 Temperature Pulse Rate 71 71 74 Respiratory Rate 18 18 18 Blood Pressure 129/65 113/62 Pulse Oximetry 99 100 100 03/13/18 23:11 03/13/18 23:56 03/14/18 00:00 Temperature 97.5 F L Pulse Rate 75 72 71 Respiratory Rate 24 18 18 Blood Pressure 120/60 135/74 120/65 Pulse Oximetry 97 100 100 03/14/18 00:12 03/14/18 00:31 03/14/18 01:00 Temperature Pulse Rate 67 68 Respiratory Rate 18 18 18 Blood Pressure 110/62 151/89 H Pulse Oximetry 99 99 100 03/14/18 01:31 03/14/18 02:00 03/14/18 02:30 Temperature Pulse Rate 66 64 63 Respiratory Rate 18 18 18 Blood Pressure 130/76 127/72 130/74 Pulse Oximetry 100 100 99 03/14/18 02:48 03/14/18 03:00 03/14/18 03:01 Temperature Pulse Rate 63 68 71 Respiratory Rate 19 21 19 Blood Pressure 123/71 Pulse Oximetry 95 97 03/14/18 03:30 03/14/18 04:00 03/14/18 04:30 Temperature 98 F Pulse Rate 71 75 71 Respiratory Rate 18 18 18 Blood Pressure 136/71 131/75 133/73 Pulse Oximetry 100 100 100 03/14/18 04:49 03/14/18 05:00 03/14/18 05:31 Temperature Pulse Rate 67 63 Respiratory Rate 18 18 18 Blood Pressure 131/72 135/70 Pulse Oximetry 100 100 100 03/14/18 06:00 03/14/18 06:01 03/14/18 06:30 Temperature Pulse Rate 75 72 70 Respiratory Rate 23 21 18 Blood Pressure 138/73 126/73 Pulse Oximetry 98 100 100 03/14/18 07:00 03/14/18 07:30 03/14/18 08:00 Temperature 97.8 F Pulse Rate 74 74 68 Respiratory Rate 18 18 18 Blood Pressure 143/76 H 140/80 131/74 Pulse Oximetry 100 100 100 03/14/18 08:30 03/14/18 08:32 03/14/18 09:19 Temperature Pulse Rate 65 66 Respiratory Rate 18 18 18 Blood Pressure 121/69 Pulse Oximetry 98 100 03/14/18 10:00 03/14/18 11:45 Temperature Pulse Rate 68 Respiratory Rate 18 Blood Pressure Pulse Oximetry 98 Intake & Output 03/13/18 03/14/18 03/14/18 18:59 06:59 18:59 Intake Total 1350 / 1350 300 / 300 50 / 50 Output Total 965 / 965 875 / 875 325 / 325 Balance 385 / 385 -575 / -575 -275 / -275 Weight 119 kg Intake: IV 1350 / 1350 300 / 300 50 / 50 Versed Inj 50 mg In 50 ml @ 2 100 / 100 MG/HR 2 mls/hr IV.CONT TITRATE PRN Rx#:[id number] Levophed Inj 16 MG In D5W Inj 250 / 250 234 ML @ 2 MCG/MIN 1.87 mls/hr IV.CONT TITRATE PRN Rx#: [id number] Diprivan 1000 mg/100 ml Inj 1, 100 / 100 000 mg In 100 ml @ 5 MCG/KG/MIN 3 mls/hr IV.CONT TITRATE PRN Rx#:[id number] 1/2 Normal Saline Inj 1,000 ML 1000 / 1000 @ 42 mls/hr IV.CONT .[id number] [facility] Rx#:[id number] Zosyn 2.25 GM Premix 50 ML @ 100 / 100 100 / 100 50 / 50 100 mls/hr IV.SIG Q6H [facility] Rx#: [id number] Output: Urine Amount (Catheter) 965 / 965 875 / 875 325 / 325 Indwelling Urethral Catheter 965 / 965 875 / 875 325 / 325 Stool Amount (Stoma) 0 / 0 Right Lower Abdomen 0 / 0 - Constitutional no acute distress - Routine HEENT Exam Head: Present: normocephalic - Routine Respiratory Exam Present: CTA bilaterally - Routine Cardiovascular Exam Present: RRR, S1, S2 - Routine Abdominal Exam Present: soft - Routine Extremities Exam Present: edema (Developing some edema LEs) - Urinary Catheter Management Indwelling Urethral Catheter Cath placed during this visit: no Urethral indwelling: Yes Reason for continuing: Hourly intake/output <Deb Garcia - Last Filed: 03/14/18 11:57> Vital signs: Vital Signs 03/13/18 16:00 03/13/18 16:39 03/13/18 16:43 Temperature 98.9 F Pulse Rate 76 75 Respiratory Rate 18 18 18 Blood Pressure 130/68 Pulse Oximetry 100 100 03/13/18 18:00 03/13/18 20:00 03/13/18 20:29 Temperature 98.5 F Pulse Rate 70 73 Respiratory Rate 18 18 Blood Pressure 129/78 Pulse Oximetry 100 100 03/13/18 20:31 03/13/18 21:00 03/13/18 21:01 Temperature Pulse Rate 69 73 71 Respiratory Rate 18 18 18 Blood Pressure 129/68 Pulse Oximetry 99 100 03/13/18 22:00 03/13/18 22:01 03/13/18 23:00 Temperature Pulse Rate 71 71 74 Respiratory Rate 18 18 18 Blood Pressure 129/65 113/62 Pulse Oximetry 99 100 100 03/13/18 23:11 03/13/18 23:56 03/14/18 00:00 Temperature 97.5 F L Pulse Rate 75 72 71 Respiratory Rate 24 18 18 Blood Pressure 120/60 135/74 120/65 Pulse Oximetry 97 100 100 03/14/18 00:12 03/14/18 00:31 03/14/18 01:00 Temperature Pulse Rate 67 68 Respiratory Rate 18 18 18 Blood Pressure 110/62 151/89 H Pulse Oximetry 99 99 100 03/14/18 01:31 03/14/18 02:00 03/14/18 02:30 Temperature Pulse Rate 66 64 63 Respiratory Rate 18 18 18 Blood Pressure 130/76 127/72 130/74 Pulse Oximetry 100 100 99 03/14/18 02:48 03/14/18 03:00 03/14/18 03:01 Temperature Pulse Rate 63 68 71 Respiratory Rate 19 21 19 Blood Pressure 123/71 Pulse Oximetry 95 97 03/14/18 03:30 03/14/18 04:00 03/14/18 04:30 Temperature 98 F Pulse Rate 71 75 71 Respiratory Rate 18 18 18 Blood Pressure 136/71 131/75 133/73 Pulse Oximetry 100 100 100 03/14/18 04:49 03/14/18 05:00 03/14/18 05:31 Temperature Pulse Rate 67 63 Respiratory Rate 18 18 18 Blood Pressure 131/72 135/70 Pulse Oximetry 100 100 100 03/14/18 06:00 03/14/18 06:01 03/14/18 06:30 Temperature Pulse Rate 75 72 70 Respiratory Rate 23 21 18 Blood Pressure 138/73 126/73 Pulse Oximetry 98 100 100 03/14/18 07:00 03/14/18 07:30 03/14/18 08:00 Temperature 97.8 F Pulse Rate 74 74 68 Respiratory Rate 18 18 18 Blood Pressure 143/76 H 140/80 131/74 Pulse Oximetry 100 100 100 03/14/18 08:30 03/14/18 08:32 03/14/18 09:19 Temperature Pulse Rate 65 66 Respiratory Rate 18 18 18 Blood Pressure 121/69 Pulse Oximetry 98 100 03/14/18 10:00 03/14/18 11:45 03/14/18 12:00 Temperature 97.8 F Pulse Rate 68 66 Respiratory Rate 18 18 Blood Pressure 145/65 H Pulse Oximetry 98 98 03/14/18 14:00 Temperature Pulse Rate 61 Respiratory Rate Blood Pressure Pulse Oximetry Intake & Output 03/13/18 03/14/18 03/14/18 18:59 06:59 18:59 Intake Total 1350 / 1350 300 / 300 50 / 50 Output Total 965 / 965 875 / 875 480 / 480 Balance 385 / 385 -575 / -575 -430 / -430 Weight 119 kg Intake: IV 1350 / 1350 300 / 300 50 / 50 Versed Inj 50 mg In 50 ml @ 2 100 / 100 MG/HR 2 mls/hr IV.CONT TITRATE PRN Rx#:[id number] Levophed Inj 16 MG In D5W Inj 250 / 250 234 ML @ 2 MCG/MIN 1.87 mls/hr IV.CONT TITRATE PRN Rx#: [id number] Diprivan 1000 mg/100 ml Inj 1, 100 / 100 000 mg In 100 ml @ 5 MCG/KG/MIN 3 mls/hr IV.CONT TITRATE PRN Rx#:[id number] 1/2 Normal Saline Inj 1,000 ML 1000 / 1000 @ 42 mls/hr IV.CONT .[id number] [facility] Rx#:[id number] Zosyn 2.25 GM Premix 50 ML @ 100 / 100 100 / 100 50 / 50 100 mls/hr IV.SIG Q6H [facility] Rx#: [id number] Output: Urine Amount (Catheter) 965 / 965 875 / 875 480 / 480 Indwelling Urethral Catheter 965 / 965 875 / 875 480 / 480 Stool Amount (Stoma) 0 / 0 Right Lower Abdomen 0 / 0 - Urinary Catheter Management Indwelling Urethral Catheter Cath placed during this visit: no <Hesham Sims - Last Filed: 03/14/18 14:30> Assessment and Plan - Assessment (1) Acute renal insufficiency Code(s): N28.9 - Disorder of kidney and ureter, unspecified Status: Acute Plan: Most likely related initially to hemodynamic issues but progressed to an acute tubal necrosis at this point in time with worsening renal disease despite IV hydration. Renal functions improved slightly, but UOP decreasing as of today. Repeat renal panel in the AM. Family still may need to make decision regarding renal replacement therapy. Given the acute nature of the renal insufficiency and previous baseline renal function there is potential for recovery of renal function. Medications should be adjusted for the patient's estimated GFR if clinically indicated. Avoid agents with significant potential for nephrotoxicity possible including NSAIDs for analgesia, iodine contrast agents. Gadolinium is contraindicated if the GFR is below 30. (2) Hypernatremia Code(s): E87.0 - Hyperosmolality and hypernatremia Status: Resolved Plan: Related to free water deficit. (3) Metabolic acidosis Code(s): E87.2 - Acidosis Status: Resolved Plan: Resolved. <Deb Garcia - Last Filed: 03/14/18 11:57> - Assessment (1) Acute renal insufficiency Code(s): N28.9 - Disorder of kidney and ureter, unspecified Status: Acute (2) Hypernatremia Code(s): E87.0 - Hyperosmolality and hypernatremia Status: Resolved (3) Metabolic acidosis Code(s): E87.2 - Acidosis Status: Resolved - Attending Attestation The exam, history, and the medical decision-making described in the above note were completed with the assistance of the VIOLA. I reviewed and agree with the findings presented. I attest that I had a [id number] encounter with the patient on the same day, and personally performed and documented my assessment and findings in the medical record. Patient's creatinine level has improved slightly however the patient's urine output is declining and he does appear to have evidence of fluid retention. I will will give 1 dose of IV bumetanide with Diuril today. Hypernatremia has recurred. Change IV fluids from half normal saline to D5W. Will defer nutritional support to critical care. <Hesham Sims - Last Filed: 03/14/18 14:30> Procedures - Arterial Line Size (Gauge): 18 <Deb Garcia - Last Filed: 03/14/18 11:57>
--- NOTE | 2018-03-14 12:36 | P.PNPAL ---
Palliative care continues to follow along to identify health care proxies. Accurint results and further family information obtained: * Liz Lima-- ex-/mother to patient's daughter Tegan ([phone]) * Lorie Lieberman-- this is daughter Zamzam Timmons listed in EMR * Candelaria Land-- relationship unknown, daughter Yvette Tyson does not know anyone by this name; [phone] (left VM). * Izabela Beasley, sister: #[phone] * Radha Nguyen, sister: #[phone] Spoke with daughter Yvette Tyson. She was able to speak briefly with her brother Edgard CALHOUN. States he will be contacting her later today and reports he told her she "will not have to do anything on her own". Requested she coordinate a time for conference call tomorrow (Thursday 03/15). Yvette Tyson verbalizes she has not had any luck finding the rest of her brothers; believes they all live in the [place] area. 130pm--Social media search conducted. Found match for son Inderjit Lima and son Aidan Lima. Private message sent indicating we have a potential family member here and request telephone call to palliative care to further discuss. Inderjit confirms his sister is Yvette Tyson and further responds with "most of my family are deadbeats and owe me money". Encourage him to telephone palliative care as we would like to further discuss and determine if he wishes to participate in medical decision making. 345pm-- no further message or calls from Inderjit. No response from Aidan Lima. Plan to follow-up with daughter Yvette Tyson in the am (Thursday 03/15) to determine phone conference time with her, Edgard and sister Lorie Dumont". Palliative care will continue to follow throughout hospitalization and address goals of care once health care proxies identified.
[2018-03-14] MEDS: Dexmedetomidine Inj 200 MCG in Sodium Chlor 0.9% Inj 50 ML IV.CONT PRN ×5 (13:51→22:34)
[2018-03-14] MEDS ORDERED: Chlorothiazide Inj 500 MG Vial IV.PUSH ONE (14:24)
[2018-03-14] MEDS: Dextrose 5% in Water Inj 1,000 ML IV.CONT SCH (14:44)
[2018-03-14 15:13] LABS: Hepatitis A IgM Antibody Nonreactive (Nonreactive); Hepatitits B Surface Antigen Nonreactive (Nonreactive)
[2018-03-14 21:29] LABS: Bilirubin,Urine Negative (Negative); Clarity,Urine Clear (Clear); Color,Urine Yellow (Yellw/Straw); Glucose,Urine (UA) Negative (Negative); Leukocyte Esterase,Urine Negative (Negative); Nitrite,Urine Negative (Negative); Specific Gravity,Urine 1.016 (1.002-1.035)
[2018-03-14] MEDS ORDERED: niCARdipine Inj 25 MG in Sodium Chlor 0.9% Inj 250 ML IV.CONT PRN (23:34)
[2018-03-14] MEDS: niCARdipine Inj 25 MG in Sodium Chlor 0.9% Inj 240 ML IV.CONT PRN (23:53)
[2018-03-15] MEDS: Dexmedetomidine Inj 200 MCG in Sodium Chlor 0.9% Inj 50 ML IV.CONT PRN ×10 (02:07→21:26)
[2018-03-15] MEDS: Piperacil/Tazo 2.25 GM Premix 50 ML IV.SIG SCH ×4 (02:08→21:22)
[2018-03-15] MEDS: Oral Hygiene Kit OROPHARYNG SCH ×3 (04:45→16:10)
[2018-03-15] MEDS: Heparin - SQ 10,000 UNITS/ML Vial SQ SCH ×3 (04:45→21:25)
[2018-03-15] MEDS: Chlorhexidine Gluconate 2% 1 Pack (2 Cloths) TOPICAL SCH (04:45)
[2018-03-15 05:58] LABS: Baso % (Auto) 0.1 % (0.0-2.0); Hematocrit 42.3 % (39.0-51.0); Hemoglobin 13.5 gm/dL (13.0-17.0); Lymph # (Auto) 2.3 th/mm3 (1.0-4.8); Lymph % (Auto) 24.8 % (9.0-44.0); Mean Corpuscular HGB Conc 31.9 % (32.0-36.0); Mean Corpuscular Hemoglobin 20.4 pg (27.0-34.0); Mean Platelet Volume 8.9 fL (7.0-11.0); Mono # (Auto) 0.5 th/mm3 (0.0-0.9); Neut # (Auto) 6.5 th/mm3 (1.8-7.7); Neut % (Auto) 70.1 % (16.0-70.0); Platelet Count 81 th/mm3 (150-450); Red Blood Count 6.62 mil/mm3 (4.50-5.90); Red Cell Distribution Width 20.6 % (11.6-17.2); White Blood Count 9.4 th/mm3 (4.0-11.0)
[2018-03-15 06:19] LABS: Alanine Aminotransferase 170 U/L (12-78); Albumin 2.8 g/dL (3.4-5.0); Anion Gap 9 meq/L (5-15); Aspartate Aminotransferase 35 U/L (15-37); Blood Urea Nitrogen 47 mg/dL (7-18); Calcium 7.8 mg/dL (8.5-10.1); Carbon Dioxide 29.9 meq/L (21.0-32.0); Chloride 104 meq/L (98-107); Glomerular Filtration Rate 20 mL/min (>89); Glucose,Random 163 mg/dL (74-106); Phosphorus 4.1 mg/dL (2.5-4.9); Potassium 3.1 meq/L (3.5-5.1); Sodium 143 meq/L (136-145)
[2018-03-15 06:21] LABS: Alkaline Phosphatase 63 U/L (45-117); Total Protein 6.3 g/dL (6.4-8.2)
[2018-03-15] MEDS: Hydrocortisone Sod Succinate 100 MG Vial IV.PUSH SCH ×3 (06:39→21:25)
[2018-03-15] MEDS: Famotidine PF Inj 20 MG/2 ML Vial IV.PUSH SCH ×2 (08:19→21:24)
[2018-03-15] MEDS: Senna/Docusate Sodium 8.6/50 MG Tablet PO SCH ×2 (08:20→21:24)
[2018-03-15] MEDS: Chlorhexidine 0.12% Oral Kit 15 ML UDC OROPHARYNG SCH ×2 (08:20→21:23)
[2018-03-15] MEDS ORDERED: Potassium Chlor 40 mEq Premix 40 MEQ/100 ML PIGGYBACK IV.SIG ONE ×2 (09:00→21:42)
[2018-03-15] MEDS ORDERED: Potassium Chloride 25 MEQ Effervescent Tablet PO ONE (09:30)
[2018-03-15] MEDS: niCARdipine Inj 25 MG in Sodium Chlor 0.9% Inj 240 ML IV.CONT PRN (10:01)
[2018-03-15 10:28] LABS: Ovalocytes 2+; Platelet Morphology Normal (Normal)
[2018-03-15] MEDS: Dextrose 5% in Water Inj 1,000 ML IV.CONT SCH (15:10)
--- NOTE | 2018-03-15 16:29 | P.PNCC ---
Subjective Subjective Remarks/Hospital Course: 03/11: 82-year-old male presents with chief complaint of not feeling well, times today. On EMS arrival they found him pale diaphoretic tachycardic and critically ill. The patient has a history of colon cancer. According to nursing staff his family had some concern that he may intentionally took too many blood pressure medication. He was emergently intubated by ED attending for an airway protection due to altered mental status as well as severe hemodynamic instability. The patient is unable to give any additional history. No family available in the emergency department. 03/12: Remains sedated, orally intubated on mechanical ventilation. Hypotensive on pressors. Borderline urine output. 03/13: Sedated, arousable, not following commands. Remains orally intubated on mechanical ventilation. Urine output borderline. Off levophed. 03/14: remains intubated and deeply sedated on versed. discussed with RN: plan to wean sedation for appropriate RASS -2 goal. off vasopressors. 03/15: modest diuresis. still very encephalopathic, and when pressure support is weaned, becomes quite tachypneic with respiratory distress. Objective Vital Signs / I&O: Vital Signs 03/14/18 18:00 03/14/18 20:00 03/14/18 20:45 Temperature 36.6 C Pulse Rate 66 88 64 Respiratory Rate 18 18 Blood Pressure 157/88 H Pulse Oximetry 100 97 03/14/18 22:00 03/14/18 23:43 03/15/18 00:00 Temperature 36.6 C Pulse Rate 69 67 Respiratory Rate 18 18 Blood Pressure 169/88 H Pulse Oximetry 97 97 03/15/18 02:00 03/15/18 03:49 03/15/18 04:00 Temperature 36.6 C Pulse Rate 62 56 L 62 Respiratory Rate 18 18 Blood Pressure 132/69 Pulse Oximetry 96 03/15/18 04:26 03/15/18 06:00 03/15/18 07:00 Temperature Pulse Rate 58 L 54 L Respiratory Rate 18 13 Blood Pressure Pulse Oximetry 96 03/15/18 07:37 03/15/18 08:00 03/15/18 10:00 Temperature 37.2 C Pulse Rate 55 L 58 L Respiratory Rate 13 16 Blood Pressure 137/74 Pulse Oximetry 96 100 03/15/18 11:35 03/15/18 12:00 03/15/18 14:00 Temperature 37.0 C Pulse Rate 53 L 54 L 52 L Respiratory Rate 13 16 Blood Pressure 116/94 H Pulse Oximetry 98 03/15/18 15:00 03/15/18 15:17 03/15/18 16:00 Temperature 37.1 C Pulse Rate 53 L 56 L Respiratory Rate 13 13 17 Blood Pressure 148/81 H Pulse Oximetry 100 Intake & Output 03/14/18 03/15/18 03/15/18 18:59 06:59 18:59 Intake Total 204 / 204 360 / 360 1306 / 1306 Output Total 1390 / 1390 1760 / 1760 1423 / 1423 Balance -1186 / -1186 -1400 / -1400 -117 / -117 Weight 117.5 kg Intake: IV 204 / 204 360 / 360 1306 / 1306 Precedex Inj 200 MCG In NS Inj 104 / 104 260 / 260 156 / 156 50 ML @ 0.2 MCG/KG/HR 6.18 mls/ hr IV.CONT TITRATE PRN Rx#: [id number] D5W Inj 1,000 ML @ 42 mls/hr IV 1000 / 1000 .CONT .[id number] [facility] Rx#:[id number] Cardene Inj 25 MG In NS Inj 240 50 / 50 ML @ 5 MG/HR 50 mls/hr IV.CONT TITRATE PRN Rx#:[id number] Zosyn 2.25 GM Premix 50 ML @ 100 / 100 100 / 100 100 / 100 100 mls/hr IV.SIG Q6H [facility] Rx#: [id number] Oral 0 / 0 0 / 0 Output: Urine 83 / 83 Urine Amount (Catheter) 1390 / 1390 1760 / 1760 1340 / 1340 Indwelling Urethral Catheter 1390 / 1390 1760 / 1760 1340 / 1340 Stool Amount (Stoma) 0 / 0 Right Lower Abdomen 0 / 0 Other: Date of Last Bowel Movement 03/14/18 03/14/18 Result Diagrams: 03/15/18 05:07 03/15/18 05:07 Objective Remarks: gen: elderly male, lying in bed, intubated, sedated HEENT: Sedated, arousable, follows commands occasionally, orally intubated, Pallor present, no icterus, tongue/ mucosa moist Neck: No JVD Chest/Pulm: on mech vent, good air entry bilaterally, no wheezing or crackles CVS: S1-S2 regular, no murmur GI/abdomen: soft, nontender, no guarding. Colostomy in place Extremities: warm bilaterally, no edema Neuro: RASS -3. does not follow commands. deeply sedated. Assessment and Plan - Assessment and Plan Plan: Assessment: 82yM with severe multiorgan failure and resolving shock. remains critically ill. appreciate palliative care consultation. will attempt to wean sedation and start daily breathing trials. given multiple comorbidities and age , may be difficult to separate from mechanical ventilation. Acute metabolic encephalopathy - continue precedex - goal RASS -2. - frequent neuro checks Acute Hypoxic Respiratory failure -Vent bundle -once more awake will need to start SBTs daily. -DuoNeb scheduled and as needed - still failing SBTs. COPD -No exacerbation -DuoNeb scheduled and as needed Severe metabolic acidosis Lactic Acidosis -Non-anion gap -CT abdomen and pelvis unremarkable -Panculture to rule out sepsis -Lactic acidosis which is downtrending. Shock- resolved -Telemetry -2D echo: EF 35%. -Series of troponins and EKGs to rule out ACS -Stress dose steroids: start weaning. Acute kidney injury superimposed on CKD, unknown stage -Strict I's and O's -Monitor creatinine and electrolytes -IV fluid hydration -nephrology consult. Atrial fibrillation -Rate controlled -Telemetry Acute protein calorie malnutrition- moderate Colon cancer s/p resection - tube feeds DVT GI prophylaxis -Teds SCDs -Heparin -Pepcid Critical Care: The total critical care time was 35 minutes. Time to perform other separately billable procedures was not included in the critical care time. Procedures - Arterial Line Size (Gauge): 18
[2018-03-15] MEDS: hydrALAZINE 50 MG Tablet PO SCH (16:48)
--- NOTE | 2018-03-15 17:07 | P.PNNP ---
Subjective Interval history: This patient is an 82-year-old male who currently can provide no medical history. History obtained primarily from the medical records both current and previous. The patient has a history of COPD, hypertension as well as diabetes mellitus. 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 From the records I reviewed the patient may have inadvertently taken higher doses of hypertensive medications and prescribed were advised. Subsequently presented to the hospital with hypotension and also evidence of acute renal insufficiency with a creatinine of 2.5 to, potassium of 5.4 and a total CO2 of only 17.1. Patient noted to have had a creatinine level ranging between 1.3 and 0.January. Earlier this admission patient developed worsening hypotension with bradycardia subsequently improved. Has been receiving IV hydration and bicarbonate but despite this creatinine level has deteriorated to 2.98. Acid-base status improved however. Currently on a ventilator. CT scan performed during this admission showed no evidence of hydronephrosis. 03/13/18 Patient remains intubated on ventilatory support. Nonverbal 03/14/18 Still intubated. SCr improved slightly, but UOP marginal. No family present. 03/15/19 Remains on vent support. UOP picked up. Renal indices improving. <Deb Garcia - Last Filed: 03/15/18 17:03> Physical Exam Vital signs: Vital Signs 03/14/18 18:00 03/14/18 20:00 03/14/18 20:45 Temperature 97.9 F Pulse Rate 66 88 64 Respiratory Rate 18 18 Blood Pressure 157/88 H Pulse Oximetry 100 97 03/14/18 22:00 03/14/18 23:43 03/15/18 00:00 Temperature 98 F Pulse Rate 69 67 Respiratory Rate 18 18 Blood Pressure 169/88 H Pulse Oximetry 97 97 03/15/18 02:00 03/15/18 03:49 03/15/18 04:00 Temperature 98 F Pulse Rate 62 56 L 62 Respiratory Rate 18 18 Blood Pressure 132/69 Pulse Oximetry 96 03/15/18 04:26 03/15/18 06:00 03/15/18 07:00 Temperature Pulse Rate 58 L 54 L Respiratory Rate 18 13 Blood Pressure Pulse Oximetry 96 03/15/18 07:37 03/15/18 08:00 03/15/18 10:00 Temperature 98.9 F Pulse Rate 55 L 58 L Respiratory Rate 13 16 Blood Pressure 137/74 Pulse Oximetry 96 100 03/15/18 11:35 03/15/18 12:00 03/15/18 14:00 Temperature 98.6 F Pulse Rate 53 L 54 L 52 L Respiratory Rate 13 16 Blood Pressure 116/94 H Pulse Oximetry 98 03/15/18 15:00 03/15/18 15:17 03/15/18 16:00 Temperature 98.7 F Pulse Rate 53 L 56 L Respiratory Rate 13 13 17 Blood Pressure 148/81 H Pulse Oximetry 100 Intake & Output 03/14/18 03/15/18 03/15/18 18:59 06:59 18:59 Intake Total 204 / 204 360 / 360 1358 / 1358 Output Total 1390 / 1390 1760 / 1760 1423 / 1423 Balance -1186 / -1186 -1400 / -1400 -65 / -65 Weight 117.5 kg Intake: IV 204 / 204 360 / 360 1358 / 1358 Precedex Inj 200 MCG In NS Inj 104 / 104 260 / 260 208 / 208 50 ML @ 0.2 MCG/KG/HR 6.18 mls/ hr IV.CONT TITRATE PRN Rx#: [id number] D5W Inj 1,000 ML @ 42 mls/hr IV 1000 / 1000 .CONT .[id number] [facility] Rx#:[id number] Cardene Inj 25 MG In NS Inj 240 50 / 50 ML @ 5 MG/HR 50 mls/hr IV.CONT TITRATE PRN Rx#:[id number] Zosyn 2.25 GM Premix 50 ML @ 100 / 100 100 / 100 100 / 100 100 mls/hr IV.SIG Q6H [facility] Rx#: [id number] Oral 0 / 0 0 / 0 Output: Urine 83 / 83 Urine Amount (Catheter) 1390 / 1390 1760 / 1760 1340 / 1340 Indwelling Urethral Catheter 1390 / 1390 1760 / 1760 1340 / 1340 Stool Amount (Stoma) 0 / 0 Right Lower Abdomen 0 / 0 Other: Date of Last Bowel Movement 03/14/18 03/14/18 - Constitutional no acute distress - Routine HEENT Exam Head: Present: normocephalic - Routine Neck Exam Present: supple - Routine Respiratory Exam Present: decreased breath sounds - Routine Cardiovascular Exam Present: RRR, S1, S2 - Routine Abdominal Exam Present: soft - Routine Extremities Exam Present: edema (present in UEs and some in hips. Improved from yesterday.) - Urinary Catheter Management Indwelling Urethral Catheter Cath placed during this visit: no Urethral indwelling: Yes Reason for continuing: Hourly intake/output <Deb Garcia - Last Filed: 03/15/18 17:03> Vital signs: Vital Signs 03/21/18 18:00 03/21/18 20:00 03/21/18 21:26 Temperature 98.7 F Pulse Rate 70 89 86 Respiratory Rate 24 20 Blood Pressure 150/65 H Pulse Oximetry 96 95 03/21/18 22:00 03/22/18 00:00 03/22/18 02:00 Temperature 98.9 F Pulse Rate 89 92 H 88 Respiratory Rate 23 Blood Pressure 153/72 H Pulse Oximetry 96 03/22/18 03:16 03/22/18 04:00 03/22/18 06:00 Temperature 98.9 F Pulse Rate 89 79 88 Respiratory Rate 28 H 17 Blood Pressure 124/57 L Pulse Oximetry 93 L 03/22/18 07:40 03/22/18 08:00 03/22/18 10:00 Temperature 98.7 F Pulse Rate 95 H 63 63 Respiratory Rate 24 15 Blood Pressure 114/53 L Pulse Oximetry 95 95 03/22/18 12:00 03/22/18 14:00 03/22/18 15:54 Temperature 98 F Pulse Rate 61 65 69 Respiratory Rate 15 18 Blood Pressure 135/58 L Pulse Oximetry 95 Intake & Output 03/21/18 03/22/18 03/22/18 18:59 06:59 18:59 Intake Total 1500 / 1500 240 / 240 Output Total 1550 / 1550 2049 / 2049 Balance -50 / -50 -1810 / -1810 Weight 114 kg Intake: IV 1000 / 1000 D5W Inj 1,000 ML @ 42 mls/hr IV 1000 / 1000 .CONT .[id number] [facility] Rx#:[id number] Oral 500 / 500 240 / 240 Output: Emesis 1000 / 1000 Urine Amount (Catheter) 1550 / 1550 1000 / 1000 Indwelling Urethral Catheter 1550 / 1550 1000 / 1000 Stool Amount (Stoma) 50 / 50 Right Lower Abdomen 50 / 50 Other: Date of Last Bowel Movement 03/18/18 03/22/18 03/22/18 # Emeses 1 - Urinary Catheter Management Indwelling Urethral Catheter Cath placed during this visit: yes Urethral indwelling: Yes Reason for continuing: Hourly intake/output Insertion date: 03/21/18 Insertion time: 12:00 Straight Cath placed during this visit: no Reason for continuing: Acute urinary retention <Hesham Sims - Last Filed: 03/22/18 16:06> Assessment and Plan - Assessment (1) Acute renal insufficiency Code(s): N28.9 - Disorder of kidney and ureter, unspecified Status: Acute Plan: Most likely related initially to hemodynamic issues but progressed to an acute tubal necrosis at this point in time with worsening renal disease despite IV hydration. Renal functions improved again and UOP appears to be improving. Will continue to monitor. Hopefully dialysis can be avoided. Medications should be adjusted for the patient's estimated GFR if clinically indicated. Avoid agents with significant potential for nephrotoxicity possible including NSAIDs for analgesia, iodine contrast agents. Gadolinium is contraindicated if the GFR is below 30. (4) Hypernatremia Code(s): E87.0 - Hyperosmolality and hypernatremia Status: Resolved Plan: Resolved (5) Metabolic acidosis Code(s): E87.2 - Acidosis Status: Resolved Plan: Resolved. <Deb Garcia - Last Filed: 03/15/18 17:03> - Assessment (1) Acute renal insufficiency Code(s): N28.9 - Disorder of kidney and ureter, unspecified Status: Acute (2) Hypertension Code(s): I10 - Essential (primary) hypertension Status: Acute (3) Hypokalemia Code(s): E87.6 - Hypokalemia Status: Acute - Attending Attestation The exam, history, and the medical decision-making described in the above note were completed with the assistance of the PARhonda. I reviewed and agree with the findings presented. I attest that I had a [id number] encounter with the patient on the same day, and personally performed and documented my assessment and findings in the medical record. <Hesham Sims - Last Filed: 03/22/18 16:06> Procedures - Arterial Line Size (Gauge): 18 <Deb Garcia - Last Filed: 03/15/18 17:03>
--- NOTE | 2018-03-15 19:04 | P.PNPAL ---
Reason for Visit Reason for visit: a. To assist with evaluation and management of symptoms including: pain, dyspnea. b. To assist medical decision maker(s) with: better understanding of current medical conditions; weighing benefits/burdens of medical treatment options; making medical treatment decisions. Subjective Subjective/Interval History: Patient seen and examined in ICU. Discussed with nurse. No family at bedside. Patient has been tolerating CPAP since early this morning. He remains on 0.8 of Precedex. He opens his eyes to voice, does not really seem to track. Not following any commands. Clinical data: * WBC has normalized now 9.4, hemoglobin 13.5, hematocrit 42.3, platelet count dropping currently 81 * Sodium 143, potassium 3.4, BUN 47, creatinine 2.97 (stable), GFR 20, glucose 163 * Total bilirubin 1.3, AST 35, ALT 170, alkaline phosphatase 63 * Total protein 6.3, albumin 2.8 * Urine output improving Nephrology remains hopeful that hemodialysis can be avoided given his slight improvement of renal function and increasing urine output. Palliative care has arranged family meeting on 03/16/18 at 2 PM, daughter Yvette Tyson will call if family needs to change the time. This will give us more time to monitor neurologic and respiratory status. Objective Vital Signs: Vital Signs 03/14/18 20:00 03/14/18 20:45 03/14/18 22:00 Temperature 97.9 F Pulse Rate 88 64 69 Respiratory Rate 18 18 Blood Pressure 157/88 H Pulse Oximetry 100 97 03/14/18 23:43 03/15/18 00:00 03/15/18 02:00 Temperature 98 F Pulse Rate 67 62 Respiratory Rate 18 18 Blood Pressure 169/88 H Pulse Oximetry 97 97 03/15/18 03:49 03/15/18 04:00 03/15/18 04:26 Temperature 98 F Pulse Rate 56 L 62 Respiratory Rate 18 18 18 Blood Pressure 132/69 Pulse Oximetry 96 96 03/15/18 06:00 03/15/18 07:00 03/15/18 07:37 Temperature Pulse Rate 58 L 54 L Respiratory Rate 13 13 Blood Pressure Pulse Oximetry 96 03/15/18 08:00 03/15/18 10:00 03/15/18 11:35 Temperature 98.9 F Pulse Rate 55 L 58 L 53 L Respiratory Rate 16 13 Blood Pressure 137/74 Pulse Oximetry 100 03/15/18 12:00 03/15/18 14:00 03/15/18 15:00 Temperature 98.6 F Pulse Rate 54 L 52 L 53 L Respiratory Rate 16 13 Blood Pressure 116/94 H Pulse Oximetry 98 03/15/18 15:17 03/15/18 16:00 03/15/18 18:00 Temperature 98.7 F Pulse Rate 56 L 56 L Respiratory Rate 13 17 Blood Pressure 148/81 H Pulse Oximetry 100 Intake & Output 03/14/18 03/15/18 03/15/18 18:59 06:59 18:59 Intake Total 204 / 204 360 / 360 1358 / 1358 Output Total 1390 / 1390 1760 / 1760 2873 / 2873 Balance -1186 / -1186 -1400 / -1400 -1515 / -1515 Weight 117.5 kg Intake: IV 204 / 204 360 / 360 1358 / 1358 Precedex Inj 200 MCG In NS Inj 104 / 104 260 / 260 208 / 208 50 ML @ 0.2 MCG/KG/HR 6.18 mls/ hr IV.CONT TITRATE PRN Rx#: [id number] Inj 1,000 ML @ 42 mls/hr IV 1000 / 1000 .CONT .[id number] [facility] Rx#:[id number] Cardene Inj 25 MG In NS Inj 240 50 / 50 ML @ 5 MG/HR 50 mls/hr IV.CONT TITRATE PRN Rx#:[id number] Zosyn 2.25 GM Premix 50 ML @ 100 / 100 100 / 100 100 / 100 100 mls/hr IV.SIG Q6H [facility] Rx#: [id number] Oral 0 / 0 0 / 0 Output: Urine 233 / 233 Urine Amount (Catheter) 1390 / 1390 1760 / 1760 2640 / 2640 Indwelling Urethral Catheter 1390 / 1390 1760 / 1760 2640 / 2640 Stool Amount (Stoma) 0 / 0 Right Lower Abdomen 0 / 0 Other: Date of Last Bowel Movement 03/14/18 03/15/18 # Bowel Movements 1 Physical Exam: CONSTITUTIONAL/GENERAL: This is an overweight, critically ill patient, on mechanical ventilation. TUBES/LINES/DRAINS: ETT, OG, left IJ central line, left AC PIV, left hand A-line , bilateral soft wrist restraints, right femoral central line, Barker. SKIN: No jaundice, rashes, or lesions. Ecchymoses on upper extremities. No wounds seen anteriorly. Skin temperature appropriate. Not diaphoretic. HEAD: Atraumatic. Normocephalic. EYES: eyes closed. ENT: Unable to assess hearing given clinical condition. Nose without bleeding or purulent drainage. Throat difficult to visualize secondary to tubes. NECK: Trachea midline. CARDIOVASCULAR: Regular rate and rhythm without murmurs, gallops, or rubs. RESPIRATORY/CHEST: On mechanical vent, FiO2 40% PEEP 5. Breath sounds equal bilaterally. No wheezes, rales, or rhonchi. GASTROINTESTINAL: Abdomen soft, protuberant. Bowel sluggish. Colostomy with pink stoma, scant drainage. GENITOURINARY: Without palpable bladder distension. Barker catheter in place, scant urine output. MUSCULOSKELETAL: Extremities without clubbing, cyanosis, or edema. No mottling or clubbing. LYMPHATICS: Not examined. NEUROLOGICAL: Stirs slightly to voice and exam. Does not follow commands. Withdraws to noxious stimuli. PSYCHIATRIC: Lightly sedated. No apparent hallucinations or other psychotic thought process. Diagnostic Tests Laboratory: Laboratory Results - last 72 hr 03/11/18 03/13/18 03/13/18 20:00 04:52 04:52 WBC 17.6 H D RBC 6.90 H Hgb 14.0 Hct 44.4 MCV 64.3 L MCH 20.2 L MCHC 31.5 L RDW 20.7 H Plt Count 124 L D MPV 9.2 Prelim Diff (Auto) Neut % (Auto) 75.6 H Lymph % (Auto) 21.0 [place] % (Auto) 3.3 Eos % (Auto) 0.0 Baso % (Auto) 0.1 Neut # (Auto) 13.3 H Lymph # (Auto) 3.7 [place] # (Auto) 0.6 Eos # (Auto) 0.0 Baso # (Auto) 0.0 WBC Differential . Diff Scan Differential Comment Auto diff final Platelet Estimate Platelet Morphology Ovalocytes Sodium 145 Potassium 4.1 Chloride 105 Carbon Dioxide 27.7 Anion Gap 12 BUN 51 H Creatinine 3.33 H Estimated GFR 18 L POC Glucose Random Glucose 152 H Calcium 7.6 L Phosphorus 4.7 Total Bilirubin 1.8 H AST 211 H ALT 360 H Alkaline Phosphatase 81 Total Protein 6.1 L D Albumin 3.0 L Urine Color Urine Clarity Urine pH Ur Specific [place] Urine Protein Urine Glucose (UA) Urine Ketones Urine Occult Blood Urine Nitrate Urine Bilirubin Urine Urobilinogen Ur Leukocyte Esterase Urine RBC Urine WBC Micro UA Comment Urine Culture Comments FR[place] Screen Complement C3 72 L Complement C4 18 Hepatitis A IgM Ab Hep Bs Antigen Hep B Core IgM Ab Hep C IgG Ab Blood Type B Positive Antibody Screen Negative MTS Gel Crossmatch See Detail 03/14/18 03/14/18 03/14/18 05:40 05:40 12:51 WBC 10.5 RBC 6.29 H Hgb 12.9 L Hct 40.3 MCV 64.0 L MCH 20.5 L MCHC 32.0 RDW 20.4 H Plt Count 85 L D MPV 8.8 Prelim Diff (Auto) Slide review pending Neut % (Auto) 68.8 Lymph % (Auto) 25.3 [place] % (Auto) 5.6 Eos % (Auto) 0.0 Baso % (Auto) 0.3 Neut # (Auto) 7.2 Lymph # (Auto) 2.7 [place] # (Auto) 0.6 Eos # (Auto) 0.0 Baso # (Auto) 0.0 WBC Differential . Diff Scan Auto diff confirmed Differential Comment . Platelet Estimate Low L Platelet Morphology Normal Ovalocytes 1+ H Sodium 146 H Potassium 3.6 Chloride 106 Carbon Dioxide 29.7 Anion Gap 10 BUN 47 H Creatinine 3.01 H Estimated GFR 20 L POC Glucose Random Glucose 104 Calcium 7.5 L Phosphorus Total Bilirubin 1.4 H AST 74 H ALT 221 H Alkaline Phosphatase 62 Total Protein 5.6 L Albumin 2.6 L Urine Color Urine Clarity Urine pH Ur Specific [place] Urine Protein Urine Glucose (UA) Urine Ketones Urine Occult Blood Urine Nitrate Urine Bilirubin Urine Urobilinogen Ur Leukocyte Esterase Urine RBC Urine WBC Micro UA Comment Urine Culture Comments [place] Screen Neg Complement C3 Complement C4 Hepatitis A IgM Ab Hep Bs Antigen Hep B Core IgM Ab Hep C IgG Ab Blood Type Antibody Screen MTS Gel Crossmatch 03/14/18 03/14/18 03/14/18 12:51 12:51 23:51 WBC RBC Hgb Hct MCV MCH MCHC RDW Plt Count MPV Prelim Diff (Auto) Neut % (Auto) Lymph % (Auto) [place] % (Auto) Eos % (Auto) Baso % (Auto) Neut # (Auto) Lymph # (Auto) [place] # (Auto) Eos # (Auto) Baso # (Auto) WBC Differential Diff Scan Differential Comment Platelet Estimate Platelet Morphology Ovalocytes Sodium Potassium Chloride Carbon Dioxide Anion Gap BUN Creatinine Estimated GFR POC Glucose 193 H Random Glucose Calcium Phosphorus Total Bilirubin AST ALT Alkaline Phosphatase Total Protein Albumin Urine Color Yellow Urine Clarity Clear Urine pH 6.0 Ur Specific [place] 1.016 Urine Protein Negative Urine Glucose (UA) Negative Urine Ketones Negative Urine Occult Blood Small H Urine Nitrate Negative Urine Bilirubin Negative Urine Urobilinogen Less than 2 Ur Leukocyte Esterase Negative Urine RBC 3 Urine WBC Less than 1 Micro UA Comment Cath-culture not ind Urine Culture Comments Cath-cult not ind [place] Screen Complement C3 Complement C4 Hepatitis A IgM Ab Nonreactive Hep Bs Antigen Nonreactive Hep B Core IgM Ab Nonreactive Hep C IgG Ab Nonreactive Blood Type Antibody Screen MTS Gel Crossmatch 03/15/18 03/15/18 03/15/18 05:07 05:07 15:40 WBC 9.4 RBC 6.62 H Hgb 13.5 Hct 42.3 MCV 64.0 L MCH 20.4 L MCHC 31.9 L RDW 20.6 H Plt Count 81 L MPV 8.9 Prelim Diff (Auto) Slide review pending Neut % (Auto) 70.1 H Lymph % (Auto) 24.8 [place] % (Auto) 5.0 Eos % (Auto) 0.0 Baso % (Auto) 0.1 Neut # (Auto) 6.5 Lymph # (Auto) 2.3 [place] # (Auto) 0.5 Eos # (Auto) 0.0 Baso # (Auto) 0.0 WBC Differential . Diff Scan Auto diff confirmed Differential Comment . Platelet Estimate Low L Platelet Morphology Normal Ovalocytes 2+ H Sodium 143 Potassium 3.1 L 3.4 L Chloride 104 Carbon Dioxide 29.9 Anion Gap 9 BUN 47 H Creatinine 2.97 H Estimated GFR 20 L POC Glucose Random Glucose 163 H Calcium 7.8 L Phosphorus 4.1 Total Bilirubin 1.3 H AST 35 ALT 170 H Alkaline Phosphatase 63 Total Protein 6.3 L D Albumin 2.8 L Urine Color Urine Clarity Urine pH Ur Specific [place] Urine Protein Urine Glucose (UA) Urine Ketones Urine Occult Blood Urine Nitrate Urine Bilirubin Urine Urobilinogen Ur Leukocyte Esterase Urine RBC Urine WBC Micro UA Comment Urine Culture Comments [place] Screen Complement C3 Complement C4 Hepatitis A IgM Ab Hep Bs Antigen Hep B Core IgM Ab Hep C IgG Ab Blood Type Antibody Screen MTS Gel Crossmatch Result Diagrams: 08/08/18 06:40 04/05/18 06:40 Microbiology: Microbiology 03/11/18 20:00 Aerobic Blood Culture - Preliminary Blood - Peripheral No growth in 4 days Anaerobic Blood Culture - Preliminary No growth in 4 days 03/11/18 20:00 Aerobic Blood Culture - Preliminary Blood - Peripheral No growth in 4 days Anaerobic Blood Culture - Preliminary No growth in 4 days 03/12/18 08:16 Gram Stain - Final Sputum - Endotracheal Sputum Culture - Final 03/12/18 08:45 Urine Culture - Final Catheterized Urine No growth in 48 hours Procedures: * 03/11/18: Intubated, right femoral central line, left IJ central line placed. Assessment and Plan Pertinent Non-Medical Issues: Psychosocial: . Has 2 daughters (Marisol and Lorie) and 4 sons ( Inderjit, Aidan, Edgard Blair and Yo). Family reports Yo has severe autism, not capacitated. Spiritual: Unknown. Legal: Patient is not capacitated to make his own healthcare decisions. No written advanced directives. According to [place] statutes, healthcare proxy decision making falls to the majority of adult children. Patient has 2 daughters (Marisol and Lorie) and 1 son, Yury Blair that wish to participate in healthcare proxy decision making. Ethical issues impacting care: No known concerns at this time. Important Contacts: * Marisol Dick, daughter: [phone] * Lorie Timmons, daughter: [phone] * Yury Lima JR, son: * Liz Lima-- ex-/mother to patient's daughter Tegan ([phone]) * Lorie Lieberman-- this is daughter Zamzam Timmons listed in EMR * Candelaria Land-- relationship unknown, daughter Yvette Tyson does not know anyone by this name; [phone] (left VM). * Izabela Beasley, sister: #[phone] * Radha Nguyen, sister: #[phone] Prognosis: Mr. Lima is an 82-year-old male with recent diagnosis of colon cancer status post surgical resection, COPD, hypertension, hyperlipidemia, atrial fibrillation , arthritis, polyneuropathy, diabetes and elevated BMI patient was admitted with respiratory failure, hypotension, acute kidney injury requiring pressor support, mechanical ventilation and now possible need for hemodialysis. Patient remains critically ill and high risk for further setbacks, decline or even . Code Status: Full Code Plan: * Decision Maker: Patient is not capacitated to make his own healthcare decisions. No written advanced directives. According to [place] statutes, healthcare proxy decision making falls to the majority of adult children. Patient has 2 daughters and 4 sons. 1 son, Yo with severe autism and unable to participate. Inderjit and Aidan have tiff contacted via [employer] messenger and have not returned our calls. Patient has 2 daughters (Marisol and Lorie) and 1 son, Yury Blair that wish to participate in healthcare proxy decision making. * FULL CODE * 03/15/18: Palliative care spoke with daughter, Marisol via telephone to arrange family meeting on 03/16/18 at 2pm (she agrees will call if time needs to change after speaking with her siblings. * SYMPTOMS: Pain: sources may include cancer, tubes, lines, bedbound status. Hypotensive. On Low dose Versed. No obvious signs of pain during my visit. Will monitor. Dyspnea: on CPAP. Will monitor to see if patient will be able to be medically extubated in the coming days. * Palliative care will continue to follow throughout hospital course to assist with symptom management and clarification of goals as needed. Attestation Collaborating MD Comments: Chart reviewed. Case discussed with palliative care nurse practitioner. Above CONSTRUCTION SUPERVISOR note reviewed and I concur. . Attestation: To help prompt me to consider important information that might be impacting today's encounter and assessment, information from prior notes written by myself or my colleagues may have been "brought forward" into today's note. My signature on this note, however, is an attestation that I personally performed the exam, history, and/or decision-making noted today, and, unless otherwise indicated, the interactions with patient, family, and staff as well as the review of records all occurred today. I also attest that the listed assessment and stated plan reflect my best clinical judgment today based on the combination of historical information, prior notes, and today's exam/ interactions. When time spent is documented, it refers only to time spent today by the signer, or if indicated, combined time spent today by collaborating physician/nurse practitioner.
[2018-03-15] MEDS ORDERED: Potassium Chlor 20 mEq Premix 20 MEQ/100 ML PIGGYBACK IV.SIG ONE (21:45)
[2018-03-15] MEDS: Dexmedetomidine Inj 1,000 MCG in Sodium Chlor 0.9% Inj 240 ML IV.CONT PRN (22:47)
[2018-03-15] MEDS: Potassium Chloride 25 MEQ Effervescent Tablet PO SCH (23:47)
[2018-03-16] MEDS: Potassium Chloride 25 MEQ Effervescent Tablet PO SCH (03:08)
[2018-03-16] MEDS: hydrALAZINE 50 MG Tablet PO SCH ×3 (03:08→19:25)
[2018-03-16] MEDS: Oral Hygiene Kit OROPHARYNG SCH ×4 (03:08→19:19)
[2018-03-16] MEDS: Piperacil/Tazo 2.25 GM Premix 50 ML IV.SIG SCH ×4 (03:11→21:40)
[2018-03-16] MEDS: Chlorhexidine Gluconate 2% 1 Pack (2 Cloths) TOPICAL SCH (03:11)
[2018-03-16 05:00] LABS: Albumin 2.8 g/dL (3.4-5.0); Anion Gap 11 meq/L (5-15); Aspartate Aminotransferase 28 U/L (15-37); Blood Urea Nitrogen 49 mg/dL (7-18); Calcium 8.1 mg/dL (8.5-10.1); Carbon Dioxide 28.1 meq/L (21.0-32.0); Chloride 105 meq/L (98-107); Glomerular Filtration Rate 25 mL/min (>89); Glucose,Random 183 mg/dL (74-106); Potassium 3.5 meq/L (3.5-5.1); Sodium 144 meq/L (136-145)
[2018-03-16 05:01] LABS: Alanine Aminotransferase 132 U/L (12-78)
[2018-03-16 05:03] LABS: Alkaline Phosphatase 75 U/L (45-117); Total Protein 6.7 g/dL (6.4-8.2)
[2018-03-16] MEDS: Dexmedetomidine Inj 1,000 MCG in Sodium Chlor 0.9% Inj 240 ML IV.CONT PRN (05:49)
[2018-03-16] MEDS: Hydrocortisone Sod Succinate 100 MG Vial IV.PUSH SCH ×3 (06:00→21:35)
[2018-03-16] MEDS: Heparin - SQ 10,000 UNITS/ML Vial SQ SCH ×3 (06:00→21:36)
[2018-03-16] MEDS: Famotidine PF Inj 20 MG/2 ML Vial IV.PUSH SCH ×2 (08:04→21:39)
[2018-03-16] MEDS: Senna/Docusate Sodium 8.6/50 MG Tablet PO SCH (08:05)
[2018-03-16] MEDS: Chlorhexidine 0.12% Oral Kit 15 ML UDC OROPHARYNG SCH (08:05)
--- NOTE | 2018-03-16 10:40 | P.PNCC ---
Subjective Subjective Remarks/Hospital Course: 03/11: 82-year-old male presents with chief complaint of not feeling well, times today. On EMS arrival they found him pale diaphoretic tachycardic and critically ill. The patient has a history of colon cancer. According to nursing staff his family had some concern that he may intentionally took too many blood pressure medication. He was emergently intubated by ED attending for an airway protection due to altered mental status as well as severe hemodynamic instability. The patient is unable to give any additional history. No family available in the emergency department. 03/12: Remains sedated, orally intubated on mechanical ventilation. Hypotensive on pressors. Borderline urine output. 03/13: Sedated, arousable, not following commands. Remains orally intubated on mechanical ventilation. Urine output borderline. Off levophed. 03/14: remains intubated and deeply sedated on versed. discussed with RN: plan to wean sedation for appropriate RASS -2 goal. off vasopressors. 03/15: modest diuresis. still very encephalopathic, and when pressure support is weaned, becomes quite tachypneic with respiratory distress. 03/16: excellent diuresis. net -5L/24h. awake and alert this morning. passed SBT. will wean to extubate. Cr also continues to improve. Objective Vital Signs / I&O: Vital Signs 03/15/18 11:35 03/15/18 12:00 03/15/18 14:00 Temperature 37.0 C Pulse Rate 53 L 54 L 52 L Respiratory Rate 13 16 Blood Pressure 116/94 H Pulse Oximetry 98 03/15/18 15:00 03/15/18 15:17 03/15/18 16:00 Temperature 37.1 C Pulse Rate 53 L 56 L Respiratory Rate 13 13 17 Blood Pressure 148/81 H Pulse Oximetry 100 03/15/18 18:00 03/15/18 18:15 03/15/18 18:30 Temperature Pulse Rate 56 L 57 L 55 L Respiratory Rate 18 17 Blood Pressure 163/88 H 161/86 H Pulse Oximetry 98 97 03/15/18 18:45 03/15/18 19:00 03/15/18 19:15 Temperature Pulse Rate 55 L 55 L 56 L Respiratory Rate 17 17 17 Blood Pressure 163/91 H 164/90 H 166/89 H Pulse Oximetry 98 98 98 03/15/18 19:30 03/15/18 19:45 03/15/18 20:00 Temperature 36.7 C Pulse Rate 58 L 55 L 60 Respiratory Rate 16 17 35 H Blood Pressure 172/100 H 174/90 H 170/77 H Pulse Oximetry 98 98 98 03/15/18 20:04 03/15/18 20:16 03/15/18 20:30 Temperature Pulse Rate 57 L 57 L 58 L Respiratory Rate 27 H 17 26 H Blood Pressure 170/77 H 171/89 H 154/82 H Pulse Oximetry 98 98 98 03/15/18 20:46 03/15/18 20:48 03/15/18 21:00 Temperature Pulse Rate 59 L 58 L 55 L Respiratory Rate 25 H 18 18 Blood Pressure 170/91 H 173/92 H Pulse Oximetry 98 98 98 03/15/18 21:15 03/15/18 21:30 03/15/18 21:37 Temperature Pulse Rate 56 L 57 L 54 L Respiratory Rate 18 18 18 Blood Pressure 174/88 H 175/91 H 176/92 H Pulse Oximetry 98 98 98 03/15/18 22:00 03/15/18 23:00 03/15/18 23:55 Temperature Pulse Rate 57 L 58 L 58 L Respiratory Rate 18 18 18 Blood Pressure Pulse Oximetry 98 97 98 03/16/18 00:00 03/16/18 01:00 03/16/18 02:00 Temperature Pulse Rate 57 L 62 60 Respiratory Rate 18 18 18 Blood Pressure 176/92 H Pulse Oximetry 98 98 98 03/16/18 02:25 03/16/18 03:00 03/16/18 03:01 Temperature Pulse Rate 61 59 L 64 Respiratory Rate 18 18 10 L Blood Pressure 191/89 H 187/97 H Pulse Oximetry 98 100 100 03/16/18 03:03 03/16/18 03:26 03/16/18 04:00 Temperature Pulse Rate 63 69 64 Respiratory Rate 18 19 18 Blood Pressure 184/91 H Pulse Oximetry 99 99 03/16/18 04:01 03/16/18 04:03 03/16/18 05:00 Temperature Pulse Rate 65 66 Respiratory Rate 18 18 18 Blood Pressure 185/90 H 186/91 H Pulse Oximetry 98 100 98 03/16/18 06:00 03/16/18 08:37 03/16/18 09:45 Temperature Pulse Rate 64 68 Respiratory Rate 18 22 Blood Pressure 186/91 H Pulse Oximetry 98 96 98 Intake & Output 03/15/18 03/16/18 03/16/18 18:59 06:59 18:59 Intake Total 1410 / 1410 1122 / 1122 Output Total 2873 / 2873 4575 / 4575 Balance -1463 / -1463 -3453 / -3453 Weight 119 kg Intake: IV 1410 / 1410 454 / 454 Precedex Inj 1,000 MCG In NS 250 / 250 Inj 240 ML @ 0.2 MCG/KG/HR 5.95 mls/hr IV.CONT TITRATE PRN Rx# :[id number] Precedex Inj 200 MCG In NS Inj 260 / 260 104 / 104 50 ML @ 0.2 MCG/KG/HR 6.18 mls/ hr IV.CONT TITRATE PRN Rx#: [id number] Inj 1,000 ML @ 42 mls/hr IV 1000 / 1000 .CONT .[id number] Rx#:[id number] Cardene Inj 25 MG In NS Inj 240 50 / 50 ML @ 5 MG/HR 50 mls/hr IV.CONT TITRATE PRN Rx#:[id number] Zosyn 2.25 GM Premix 50 ML @ 100 / 100 100 / 100 100 mls/hr IV.SIG Q6H [facility] Rx#: [id number] Oral 0 / 0 0 / 0 Tube Feeding 518 / 518 Water Bolus Amount 150 / 150 Output: Urine 233 / 233 1974 / 1974 Urine Amount (Catheter) 2640 / 2640 2600 / 2600 Indwelling Urethral Catheter 2640 / 2640 2600 / 2600 Stool Amount (Stoma) 0 / 0 0 / 0 Right Lower Abdomen 0 / 0 0 / 0 Other: Date of Last Bowel Movement 03/15/18 03/15/18 # Bowel Movements 1 1 Result Diagrams: 03/15/18 05:07 03/16/18 04:20 Objective Remarks: gen: elderly male, lying in bed, intubated, sedated HEENT: awake, arousable, follows commands, orally intubated, Pallor present, no icterus, tongue/ mucosa moist Neck: No JVD Chest/Pulm: on mech vent, good air entry bilaterally, no wheezing or crackles CVS: S1-S2 regular, no murmur GI/abdomen: soft, nontender, no guarding. Colostomy in place Extremities: warm bilaterally, no edema Neuro: RASS -1. follow commands. Assessment and Plan - Assessment and Plan Plan: Assessment: 82yM with severe multiorgan failure and resolving shock. appreciate palliative care consultation. will work towards extubation today. Acute metabolic encephalopathy - resolving. - continue precedex - goal RASS 0 - frequent neuro checks Acute Hypoxic Respiratory failure- resolving. -Vent bundle -SBTs. wean to extubate if possible. -DuoNeb scheduled and as needed COPD -No exacerbation -DuoNeb scheduled and as needed Severe metabolic acidosis- resolving. Lactic Acidosis- resolved. -Non-anion gap -CT abdomen and pelvis unremarkable -Panculture to rule out sepsis Shock- resolved -Telemetry -2D echo: EF 35%. -Series of troponins and EKGs to rule out ACS -Stress dose steroids: continue weaning. Acute kidney injury superimposed on CKD, unknown stage- improving. -Strict I's and O's -Monitor creatinine and electrolytes -IV fluid hydration -nephrology consult. Atrial fibrillation -Rate controlled -Telemetry Acute protein calorie malnutrition- moderate Colon cancer s/p resection - tube feeds DVT GI prophylaxis -Teds SCDs -Heparin -Pepcid Procedures - Arterial Line Size (Gauge): 18
[2018-03-16 11:08] LABS: ABG Base Excess 3.4 mmol/L (-2-2); ABG PCO2 43 mmHg (38-42); ABG PO2 112 mmHG (61-120)
--- NOTE | 2018-03-16 12:01 | P.DIET ---
Nutritional Evaluation Type of nutrition evaluation: follow-up Nutrition consult regarding: Tube Feeding Objective - Diagnosis Respiratory Failure, Shock - Objective % IBW: 97 Body Weight Used for Calculations: Actual (76kg) Energy Needs - Lower Range (kCal/kg): 25 Energy Needs - Upper Range (kCal/kg): 30 Lower Limit kCal/kg (kCals): 1,900 Upper Limit kCal/kg (kCals): 2,280 Lower Limit Protein Factor (Grams per Kg): 1.0 Upper Limit Protein Factor (Grams per Kg): 1.2 Lower Protein Needs (Protein): 76 Upper Protein Needs (Protein): 91 Dietitian Reviewed in Medical Record: Curent medications, Intake & Output, Labs , Medical history, Tube feeding Diet Order: TF'ing ONLY: Nepro @ 40ml/hr Objective Comments: PMH: AFib, Colon CA s/p colostomy, COPD, Hyperlipidemia, HTN Meds include: Pepcid, Zofran Labs include: BUN 49, Creatinine 2.45, estGFR 25, Glucose 183 +1BM, +UOP 1975ml Assessment Assessment: Pt continues at nutritional risk r/t need for a TF'ing for nutrition support. To best meet pt's nutritional needs for TF'ing w/Nepro, Rec a goal rate @ 45mlhr to offer 1944 kcal, 87.5g Protein and 785ml free water. Labs reviewed- Nephrology note reviewed-monitor renal labs closely. Wt changes noted. Additional Recs to follow r/t Clinical Course. Recommendations: 1.To best meet pt's nutritional needs for TF'ing w/Nepro, Rec a goal rate @ 45mlhr 2.Additional Recs to follow r/t Clinical Course Dietitian to Monitor: Lab values, Electrolytes, Renal labs, Intake & Output, Tube feeding tolerance, Weight change, Medical course
--- NOTE | 2018-03-16 15:58 | P.PNNP ---
Subjective Interval history: Patient extubated. Lethargic but awake. Physical Exam Vital signs: Vital Signs 03/15/18 16:00 03/15/18 18:00 03/15/18 18:15 Temperature 98.7 F Pulse Rate 56 L 56 L 57 L Respiratory Rate 17 18 Blood Pressure 148/81 H 163/88 H Pulse Oximetry 100 98 03/15/18 18:30 03/15/18 18:45 03/15/18 19:00 Temperature Pulse Rate 55 L 55 L 55 L Respiratory Rate 17 17 17 Blood Pressure 161/86 H 163/91 H 164/90 H Pulse Oximetry 97 98 98 03/15/18 19:15 03/15/18 19:30 03/15/18 19:45 Temperature Pulse Rate 56 L 58 L 55 L Respiratory Rate 17 16 17 Blood Pressure 166/89 H 172/100 H 174/90 H Pulse Oximetry 98 98 98 03/15/18 20:00 03/15/18 20:04 03/15/18 20:16 Temperature 98.1 F Pulse Rate 60 57 L 57 L Respiratory Rate 35 H 27 H 17 Blood Pressure 170/77 H 170/77 H 171/89 H Pulse Oximetry 98 98 98 03/15/18 20:30 03/15/18 20:46 03/15/18 20:48 Temperature Pulse Rate 58 L 59 L 58 L Respiratory Rate 26 H 25 H 18 Blood Pressure 154/82 H 170/91 H Pulse Oximetry 98 98 98 03/15/18 21:00 03/15/18 21:15 03/15/18 21:30 Temperature Pulse Rate 55 L 56 L 57 L Respiratory Rate 18 18 18 Blood Pressure 173/92 H 174/88 H 175/91 H Pulse Oximetry 98 98 98 03/15/18 21:37 03/15/18 22:00 03/15/18 23:00 Temperature Pulse Rate 54 L 57 L 58 L Respiratory Rate 18 18 18 Blood Pressure 176/92 H Pulse Oximetry 98 98 97 03/15/18 23:55 03/16/18 00:00 03/16/18 01:00 Temperature Pulse Rate 58 L 57 L 62 Respiratory Rate 18 18 18 Blood Pressure 176/92 H Pulse Oximetry 98 98 98 03/16/18 02:00 03/16/18 02:25 03/16/18 03:00 Temperature Pulse Rate 60 61 59 L Respiratory Rate 18 18 18 Blood Pressure 191/89 H Pulse Oximetry 98 98 100 03/16/18 03:01 03/16/18 03:03 03/16/18 03:26 Temperature Pulse Rate 64 63 69 Respiratory Rate 10 L 18 19 Blood Pressure 187/97 H 184/91 H Pulse Oximetry 100 99 03/16/18 04:00 03/16/18 04:01 03/16/18 04:03 Temperature Pulse Rate 64 65 Respiratory Rate 18 18 18 Blood Pressure 185/90 H Pulse Oximetry 99 98 100 03/16/18 05:00 03/16/18 06:00 03/16/18 08:37 Temperature Pulse Rate 66 64 68 Respiratory Rate 18 18 22 Blood Pressure 186/91 H 186/91 H Pulse Oximetry 98 98 96 03/16/18 09:45 03/16/18 11:30 Temperature Pulse Rate 71 Respiratory Rate 25 H Blood Pressure Pulse Oximetry 98 Intake & Output 03/15/18 03/16/18 03/16/18 18:59 06:59 18:59 Intake Total 1410 / 1410 1122 / 1122 1050 / 1050 Output Total 2873 / 2873 4575 / 4575 Balance -1463 / -1463 -3453 / -3453 1050 / 1050 Weight 119 kg Intake: IV 1410 / 1410 454 / 454 1050 / 1050 Precedex Inj 1,000 MCG In NS 250 / 250 Inj 240 ML @ 0.2 MCG/KG/HR 5.95 mls/hr IV.CONT TITRATE PRN Rx# :[id number] Precedex Inj 200 MCG In NS Inj 260 / 260 104 / 104 50 ML @ 0.2 MCG/KG/HR 6.18 mls/ hr IV.CONT TITRATE PRN Rx#: [id number] Inj 1,000 ML @ 42 mls/hr IV 1000 / 1000 1000 / 1000 .CONT .[id number] VIJAYA Rx#:[id number] Cardene Inj 25 MG In NS Inj 240 50 / 50 ML @ 5 MG/HR 50 mls/hr IV.CONT TITRATE PRN Rx#:[id number] Zosyn 2.25 GM Premix 50 ML @ 100 / 100 100 / 100 50 / 50 100 mls/hr IV.SIG Q6H VIJAYA Rx#: [id number] Oral 0 / 0 0 / 0 Tube Feeding 518 / 518 Water Bolus Amount 150 / 150 Output: Urine 233 / 233 1974 Urine Amount (Catheter) 2640 / 2640 2600 / 2600 Indwelling Urethral Catheter 2640 / 2640 2600 / 2600 Stool Amount (Stoma) 0 / 0 0 / 0 Right Lower Abdomen 0 / 0 0 / 0 Other: Date of Last Bowel Movement 03/15/18 03/15/18 03/15/18 # Bowel Movements 1 1 Narrative: GENERAL: Not in respiratory distress. SKIN: Warm and dry. HEAD: Normocephalic. EYES: No scleral icterus. No injection or drainage. NECK: Supple, trachea midline. No JVD or lymphadenopathy. CARDIOVASCULAR: Regular rate and rhythm without murmurs, gallops, or rubs. RESPIRATORY: Breath sounds equal bilaterally. No accessory muscle use. GASTROINTESTINAL: Abdomen soft, non-tender, nondistended. MUSCULOSKELETAL: No cyanosis, or edema. - Urinary Catheter Management Indwelling Urethral Catheter Cath placed during this visit: no Urethral indwelling: Yes Reason for continuing: Hourly intake/output Assessment and Plan - Assessment (1) Acute renal insufficiency Code(s): N28.9 - Disorder of kidney and ureter, unspecified Status: Acute Plan: ATN showing significant improvement with good urine output. Continue current fluid management. Medications should be adjusted for the patient's estimated GFR if clinically indicated. Avoid agents with significant potential for nephrotoxicity possible including NSAIDs for analgesia, iodine contrast agents. Gadolinium is contraindicated if the GFR is below 30. Procedures - Arterial Line Size (Gauge): 18
--- NOTE | 2018-03-16 16:47 | P.PNPAL ---
Reason for Visit Reason for visit: a. To assist with evaluation and management of symptoms including: pain, dyspnea. b. To assist medical decision maker(s) with: better understanding of current medical conditions; weighing benefits/burdens of medical treatment options; making medical treatment decisions. Subjective Subjective/Interval History: Patient seen and examined in ICU. Also present Sabra Reilly LCSW. No family at bedside. Patient was medically extubated earlier today. He is tolerating nasal cannula oxygen without any evidence of respiratory distress during my visit. Respirations are even and unlabored. Clinical data: * Sodium 144, potassium 3.5, BUN 49, creatinine 2.45, GFR 25, glucose 183 * Total bilirubin 1.1, AST 20, ALT 132, alkaline phosphatase 75 * Total protein 6.7, albumin 2.8 * Urine output improving Renal and liver function continues to improve. Palliative care spoke with 2 daughters, son was not available. They desire continued aggressive care including FULL CODE and reintubation if needed. Hopefully patient will be able to participate in clarification of medical treatment goals in the coming days. Patient is awake and alert intermittently confused during my visit today do not think he is capacitated at this time to make his own healthcare decisions. Palliative care will continue to evaluate. If patient is able to complete written advanced directives in the coming days palliative care will be happy to assist. Advance Directives Significant change in goals:: FULL CODE. Goals remain aggressive at this time including reintubation if needed. Objective Vital Signs: Vital Signs 03/15/18 18:00 03/15/18 18:15 03/15/18 18:30 Temperature Pulse Rate 56 L 57 L 55 L Respiratory Rate 18 17 Blood Pressure 163/88 H 161/86 H Pulse Oximetry 98 97 03/15/18 18:45 03/15/18 19:00 03/15/18 19:15 Temperature Pulse Rate 55 L 55 L 56 L Respiratory Rate 17 17 17 Blood Pressure 163/91 H 164/90 H 166/89 H Pulse Oximetry 98 98 98 03/15/18 19:30 03/15/18 19:45 03/15/18 20:00 Temperature 98.1 F Pulse Rate 58 L 55 L 60 Respiratory Rate 16 17 35 H Blood Pressure 172/100 H 174/90 H 170/77 H Pulse Oximetry 98 98 98 03/15/18 20:04 03/15/18 20:16 03/15/18 20:30 Temperature Pulse Rate 57 L 57 L 58 L Respiratory Rate 27 H 17 26 H Blood Pressure 170/77 H 171/89 H 154/82 H Pulse Oximetry 98 98 98 03/15/18 20:46 03/15/18 20:48 03/15/18 21:00 Temperature Pulse Rate 59 L 58 L 55 L Respiratory Rate 25 H 18 18 Blood Pressure 170/91 H 173/92 H Pulse Oximetry 98 98 98 03/15/18 21:15 03/15/18 21:30 03/15/18 21:37 Temperature Pulse Rate 56 L 57 L 54 L Respiratory Rate 18 18 18 Blood Pressure 174/88 H 175/91 H 176/92 H Pulse Oximetry 98 98 98 03/15/18 22:00 03/15/18 23:00 03/15/18 23:55 Temperature Pulse Rate 57 L 58 L 58 L Respiratory Rate 18 18 18 Blood Pressure Pulse Oximetry 98 97 98 03/16/18 00:00 03/16/18 01:00 03/16/18 02:00 Temperature Pulse Rate 57 L 62 60 Respiratory Rate 18 18 18 Blood Pressure 176/92 H Pulse Oximetry 98 98 98 03/16/18 02:25 03/16/18 03:00 03/16/18 03:01 Temperature Pulse Rate 61 59 L 64 Respiratory Rate 18 18 10 L Blood Pressure 191/89 H 187/97 H Pulse Oximetry 98 100 100 03/16/18 03:03 03/16/18 03:26 03/16/18 04:00 Temperature Pulse Rate 63 69 64 Respiratory Rate 18 19 18 Blood Pressure 184/91 H Pulse Oximetry 99 99 03/16/18 04:01 03/16/18 04:03 03/16/18 05:00 Temperature Pulse Rate 65 66 Respiratory Rate 18 18 18 Blood Pressure 185/90 H 186/91 H Pulse Oximetry 98 100 98 03/16/18 06:00 03/16/18 08:37 03/16/18 09:45 Temperature Pulse Rate 64 68 Respiratory Rate 18 22 Blood Pressure 186/91 H Pulse Oximetry 98 96 98 03/16/18 11:30 03/16/18 16:34 Temperature Pulse Rate 71 86 Respiratory Rate 25 H 18 Blood Pressure Pulse Oximetry Intake & Output 03/15/18 03/16/18 03/16/18 18:59 06:59 18:59 Intake Total 1410 / 1410 1122 / 1122 1050 / 1050 Output Total 2873 / 2873 4575 / 4575 Balance -1463 / -1463 -3453 / -3453 1050 / 1050 Weight 119 kg Intake: IV 1410 / 1410 454 / 454 1050 / 1050 Precedex Inj 1,000 MCG In NS 250 / 250 Inj 240 ML @ 0.2 MCG/KG/HR 5.95 mls/hr IV.CONT TITRATE PRN Rx# :[id number] Precedex Inj 200 MCG In NS Inj 260 / 260 104 / 104 50 ML @ 0.2 MCG/KG/HR 6.18 mls/ hr IV.CONT TITRATE PRN Rx#: [id number] Inj 1,000 ML @ 42 mls/hr IV 1000 / 1000 1000 / 1000 .CONT .[id number] VIJAYA Rx#:[id number] Cardene Inj 25 MG In NS Inj 240 50 / 50 ML @ 5 MG/HR 50 mls/hr IV.CONT TITRATE PRN Rx#:[id number] Zosyn 2.25 GM Premix 50 ML @ 100 / 100 100 / 100 50 / 50 100 mls/hr IV.SIG Q6H VIJAYA Rx#: [id number] Oral 0 / 0 0 / 0 Tube Feeding 518 / 518 Water Bolus Amount 150 / 150 Output: Urine 233 / 233 1974 / 1974 Urine Amount (Catheter) 2640 / 2640 2600 / 2600 Indwelling Urethral Catheter 2640 / 2640 2600 / 2600 Stool Amount (Stoma) 0 / 0 0 / 0 Right Lower Abdomen 0 / 0 0 / 0 Other: Date of Last Bowel Movement 03/15/18 03/15/18 03/15/18 # Bowel Movements 1 1 Physical Exam: CONSTITUTIONAL/GENERAL: This is an overweight, critically ill patient, on mechanical ventilation. TUBES/LINES/DRAINS: Nasal cannula oxygen, left IJ central line, left AC PIV, left hand A-line, bilateral soft wrist restraints, right femoral central line, Barker. SKIN: No jaundice, rashes, or lesions. Ecchymoses on upper extremities. No wounds seen anteriorly. Skin temperature appropriate. Not diaphoretic. CARDIOVASCULAR: Regular rate and rhythm without murmurs, gallops, or rubs. RESPIRATORY/CHEST: Breath sounds equal bilaterally. GASTROINTESTINAL: Abdomen soft, protuberant. Bowel sluggish. Colostomy with pink stoma, scant drainage. GENITOURINARY: Without palpable bladder distension. Barker catheter in place, scant urine output. MUSCULOSKELETAL: Extremities without clubbing, cyanosis, or edema. No mottling or clubbing. NEUROLOGICAL: Stirs slightly to voice and exam. Does not follow commands. Withdraws to noxious stimuli. PSYCHIATRIC: Lightly sedated. No apparent hallucinations or other psychotic thought process. Diagnostic Tests Laboratory: Laboratory Results - last 72 hr 03/11/18 03/14/18 03/14/18 20:00 05:40 05:40 WBC 10.5 RBC 6.29 H Hgb 12.9 L Hct 40.3 MCV 64.0 L MCH 20.5 L MCHC 32.0 RDW 20.4 H Plt Count 85 L D MPV 8.8 Prelim Diff (Auto) Slide review pending Neut % (Auto) 68.8 Lymph % (Auto) 25.3 [place] % (Auto) 5.6 Eos % (Auto) 0.0 Baso % (Auto) 0.3 Neut # (Auto) 7.2 Lymph # (Auto) 2.7 [place] # (Auto) 0.6 Eos # (Auto) 0.0 Baso # (Auto) 0.0 WBC Differential . Diff Scan Auto diff confirmed Differential Comment . Platelet Estimate Low L Platelet Morphology Normal Ovalocytes 1+ H Puncture Site Patient Temperature O2 Saturation ABG pH ABG pCO2 ABG pO2 ABG HCO3 ABG O2 Content ABG Base Excess ABG Methemoglobin Hemoglobin Carboxyhemoglobin O2 Delivery Device Vent Setting Inspired O2 Critical Value Sodium 146 H Potassium 3.6 Chloride 106 Carbon Dioxide 29.7 Anion Gap 10 BUN 47 H Creatinine 3.01 H Estimated GFR 20 L POC Glucose Random Glucose 104 Calcium 7.5 L Phosphorus Total Bilirubin 1.4 H AST 74 H ALT 221 H Alkaline Phosphatase 62 Total Protein 5.6 L Albumin 2.6 L Urine Color Urine Clarity Urine pH Ur Specific [place] Urine Protein Urine Glucose (UA) Urine Ketones Urine Occult Blood Urine Nitrate Urine Bilirubin Urine Urobilinogen Ur Leukocyte Esterase Urine RBC Urine WBC Micro UA Comment Urine Culture Comments FR[place] Screen Hepatitis A IgM Ab Hep Bs Antigen Hep B Core IgM Ab Hep C IgG Ab MTS Gel Crossmatch See Detail 03/14/18 03/14/18 03/14/18 12:51 12:51 12:51 WBC RBC Hgb Hct MCV MCH MCHC RDW Plt Count MPV Prelim Diff (Auto) Neut % (Auto) Lymph % (Auto) [place] % (Auto) Eos % (Auto) Baso % (Auto) Neut # (Auto) Lymph # (Auto) [place] # (Auto) Eos # (Auto) Baso # (Auto) WBC Differential Diff Scan Differential Comment Platelet Estimate Platelet Morphology Ovalocytes Puncture Site Patient Temperature O2 Saturation ABG pH ABG pCO2 ABG pO2 ABG HCO3 ABG O2 Content ABG Base Excess ABG Methemoglobin Hemoglobin Carboxyhemoglobin O2 Delivery Device Vent Setting Inspired O2 Critical Value Sodium Potassium Chloride Carbon Dioxide Anion Gap BUN Creatinine Estimated GFR POC Glucose Random Glucose Calcium Phosphorus Total Bilirubin AST ALT Alkaline Phosphatase Total Protein Albumin Urine Color Yellow Urine Clarity Clear Urine pH 6.0 Ur Specific [place] 1.016 Urine Protein Negative Urine Glucose (UA) Negative Urine Ketones Negative Urine Occult Blood Small H Urine Nitrate Negative Urine Bilirubin Negative Urine Urobilinogen Less than 2 Ur Leukocyte Esterase Negative Urine RBC 3 Urine WBC Less than 1 Micro UA Comment Cath-culture not ind Urine Culture Comments Cath-cult not ind [place] Screen Neg Hepatitis A IgM Ab Nonreactive Hep Bs Antigen Nonreactive Hep B Core IgM Ab Nonreactive Hep C IgG Ab Nonreactive MTS Gel Crossmatch 03/14/18 03/15/18 03/15/18 23:51 05:07 05:07 WBC 9.4 RBC 6.62 H Hgb 13.5 Hct 42.3 MCV 64.0 L MCH 20.4 L MCHC 31.9 L RDW 20.6 H Plt Count 81 L MPV 8.9 Prelim Diff (Auto) Slide review pending Neut % (Auto) 70.1 H Lymph % (Auto) 24.8 [place] % (Auto) 5.0 Eos % (Auto) 0.0 Baso % (Auto) 0.1 Neut # (Auto) 6.5 Lymph # (Auto) 2.3 [place] # (Auto) 0.5 Eos # (Auto) 0.0 Baso # (Auto) 0.0 WBC Differential . Diff Scan Auto diff confirmed Differential Comment . Platelet Estimate Low L Platelet Morphology Normal Ovalocytes 2+ H Puncture Site Patient Temperature O2 Saturation ABG pH ABG pCO2 ABG pO2 ABG HCO3 ABG O2 Content ABG Base Excess ABG Methemoglobin Hemoglobin Carboxyhemoglobin O2 Delivery Device Vent Setting Inspired O2 Critical Value Sodium 143 Potassium 3.1 L Chloride 104 Carbon Dioxide 29.9 Anion Gap 9 BUN 47 H Creatinine 2.97 H Estimated GFR 20 L POC Glucose 193 H Random Glucose 163 H Calcium 7.8 L Phosphorus 4.1 Total Bilirubin 1.3 H AST 35 ALT 170 H Alkaline Phosphatase 63 Total Protein 6.3 L D Albumin 2.8 L Urine Color Urine Clarity Urine pH Ur Specific [place] Urine Protein Urine Glucose (UA) Urine Ketones Urine Occult Blood Urine Nitrate Urine Bilirubin Urine Urobilinogen Ur Leukocyte Esterase Urine RBC Urine WBC Micro UA Comment Urine Culture Comments [place] Screen Hepatitis A IgM Ab Hep Bs Antigen Hep B Core IgM Ab Hep C IgG Ab MTS Gel Crossmatch 03/15/18 03/16/18 03/16/18 15:40 04:20 10:52 WBC RBC Hgb Hct MCV MCH MCHC RDW Plt Count MPV Prelim Diff (Auto) Neut % (Auto) Lymph % (Auto) [place] % (Auto) Eos % (Auto) Baso % (Auto) Neut # (Auto) Lymph # (Auto) [place] # (Auto) Eos # (Auto) Baso # (Auto) WBC Differential Diff Scan Differential Comment Platelet Estimate Platelet Morphology Ovalocytes Puncture Site Art line Patient Temperature 98.6 O2 Saturation 96 ABG pH 7.42 ABG pCO2 43 H ABG pO2 112 ABG HCO3 28 H ABG O2 Content 19.3 ABG Base Excess 3.4 H ABG Methemoglobin 1.3 Hemoglobin 14.2 Carboxyhemoglobin 0.6 O2 Delivery Device Ventilator Vent Setting Peep 5, ps 5 Inspired O2 35 Critical Value No Sodium 144 Potassium 3.4 L 3.5 Chloride 105 Carbon Dioxide 28.1 Anion Gap 11 BUN 49 H Creatinine 2.45 H Estimated GFR 25 L POC Glucose Random Glucose 183 H Calcium 8.1 L Phosphorus Total Bilirubin 1.1 H AST 28 ALT 132 H Alkaline Phosphatase 75 Total Protein 6.7 Albumin 2.8 L Urine Color Urine Clarity Urine pH Ur Specific [place] Urine Protein Urine Glucose (UA) Urine Ketones Urine Occult Blood Urine Nitrate Urine Bilirubin Urine Urobilinogen Ur Leukocyte Esterase Urine RBC Urine WBC Micro UA Comment Urine Culture Comments [place] Screen Hepatitis A IgM Ab Hep Bs Antigen Hep B Core IgM Ab Hep C IgG Ab MTS Gel Crossmatch Result Diagrams: 04/05/18 06:40 04/05/18 06:40 Microbiology: Microbiology 03/11/18 20:00 Aerobic Blood Culture - Final Blood - Peripheral No growth in 5 days Anaerobic Blood Culture - Final No growth in 5 days 03/11/18 20:00 Aerobic Blood Culture - Final Blood - Peripheral No growth in 5 days Anaerobic Blood Culture - Final No growth in 5 days 03/12/18 08:16 Gram Stain - Final Sputum - Endotracheal Sputum Culture - Final 03/12/18 08:45 Urine Culture - Final Catheterized Urine No growth in 48 hours Imaging: Abdomen/Pelvis CT 03/12/18 22:23 CONCLUSION: 1. Gallstones. 2. Minimal nonspecific free peritoneal fluid. 3. Mild infiltrate in the lung bases. Head CT 03/12/18 22:57 CONCLUSION: No acute intracranial findings. Chest X-Ray 03/13/18 00:00 CONCLUSION: No appreciable change. Procedures: * 03/11/18: Intubated, right femoral central line, left IJ central line placed. Assessment and Plan Pertinent Non-Medical Issues: Psychosocial: . Has 2 daughters (Marisol and Lorie) and 4 sons ( Inderjit, Aidan, Edgard Blair and Yo). Family reports Yo has severe autism, not capacitated. Spiritual: Unknown. Legal: Patient is not capacitated to make his own healthcare decisions. No written advanced directives. According to [place] statutes, healthcare proxy decision making falls to the majority of adult children. Patient has 2 daughters (Marisol and Lorie) and 1 son, Yury Blair that wish to participate in healthcare proxy decision making. Ethical issues impacting care: No known concerns at this time. Important Contacts: * Marisol Dick, daughter: [phone] * Lorie Timmons, daughter: [phone] * Yury Lima JR, son: * Liz Lima-- ex-/mother to patient's daughter Tegan ([phone]) * Lorie Lieberman-- this is daughter Zamzam Timmons listed in EMR * Candelaria Land-- relationship unknown, daughter Yvette Tyson does not know anyone by this name; [phone] (left ). * Izabela Gale, sister: #[phone] * Radha Pizarroine, sister: #[phone] Prognosis: Mr. Lima is an 82-year-old male with recent diagnosis of colon cancer status post surgical resection, COPD, hypertension, hyperlipidemia, atrial fibrillation , arthritis, polyneuropathy, diabetes and elevated BMI patient was admitted with respiratory failure, hypotension, acute kidney injury requiring pressor support, mechanical ventilation and now possible need for hemodialysis. Patient remains critically ill and high risk for further setbacks, decline or even . Code Status: Full Code Plan: * Decision Maker: Patient is not capacitated to make his own healthcare decisions. No written advanced directives. According to [place] statutes, healthcare proxy decision making falls to the majority of adult children. Patient has 2 daughters and 4 sons. 1 son, Yo with severe autism and unable to participate. Inderjit and Aidan have been contacted via [employer] and have not returned our calls. Patient has 2 daughters (Marisol and Lorie) and 1 son, Yury Blair that wish to participate in healthcare proxy decision making. * FULL CODE * 03/16/18: Palliative care spoke with 2 daughters, Marisol and Lorie. Son was not available. Patient does not appear capacitated to make his own healthcare decisions post medical extubation at this time. Hopefully he will be able to participate in medical decisions in the coming days. Palliative care will attempt to his complete written advance directives. Patient indicates he may have a living will at home have asked his daughters to look for this paperwork. Goals remain aggressive at this time including FULL CODE and reintubation if needed. * SYMPTOMS: Pain: sources may include cancer, tubes, lines, bedbound status. Hypotensive. On Low dose Versed. No obvious signs of pain during my visit. Will monitor. Dyspnea: on CPAP. Will monitor to see if patient will be able to be medically extubated in the coming days. * Palliative care will continue to follow throughout hospital course to assist with symptom management and clarification of goals as needed. Attestation Collaborating MD Comments: Chart reviewed. Case discussed with palliative care nurse practitioner. Above POLISHING MACHINE TENDER note reviewed and I concur. . Attestation: To help prompt me to consider important information that might be impacting today's encounter and assessment, information from prior notes written by myself or my colleagues may have been "brought forward" into today's note. My signature on this note, however, is an attestation that I personally performed the exam, history, and/or decision-making noted today, and, unless otherwise indicated, the interactions with patient, family, and staff as well as the review of records all occurred today. I also attest that the listed assessment and stated plan reflect my best clinical judgment today based on the combination of historical information, prior notes, and today's exam/ interactions. When time spent is documented, it refers only to time spent today by the signer, or if indicated, combined time spent today by collaborating physician/nurse practitioner.
[2018-03-16] MEDS: Dextrose 5% in Water Inj 1,000 ML IV.CONT SCH (18:00)
[2018-03-16] MEDS: Acetaminophen 325 MG Tablet PO PRN (21:42)
[2018-03-17] MEDS: hydrALAZINE 50 MG Tablet PO SCH ×3 (01:28→17:18)
[2018-03-17] MEDS: Piperacil/Tazo 2.25 GM Premix 50 ML IV.SIG SCH ×4 (01:28→21:28)
[2018-03-17] MEDS: Senna/Docusate Sodium 8.6/50 MG Tablet PO SCH ×3 (04:48→21:29)
[2018-03-17 06:00] LABS: Alanine Aminotransferase 130 U/L (12-78); Albumin 2.7 g/dL (3.4-5.0); Alkaline Phosphatase 76 U/L (45-117); Anion Gap 11 meq/L (5-15); Aspartate Aminotransferase 62 U/L (15-37); Blood Urea Nitrogen 51 mg/dL (7-18); Calcium 8.9 mg/dL (8.5-10.1); Carbon Dioxide 27.7 meq/L (21.0-32.0); Chloride 104 meq/L (98-107); Glomerular Filtration Rate 29 mL/min (>89); Glucose,Random 112 mg/dL (74-106); Potassium 3.1 meq/L (3.5-5.1); Sodium 143 meq/L (136-145); Total Protein 6.6 g/dL (6.4-8.2)
[2018-03-17] MEDS: Hydrocortisone Sod Succinate 100 MG Vial IV.PUSH SCH (06:52)
[2018-03-17] MEDS: Heparin - SQ 10,000 UNITS/ML Vial SQ SCH ×3 (06:53→21:29)
[2018-03-17] MEDS ORDERED: Potassium Bicarbonate 25 MEQ Effervescent Tablet PO ONE (09:15)
[2018-03-17] MEDS ORDERED: Potassium Chlor 20 mEq Premix 20 MEQ/100 ML PIGGYBACK IV.SIG SCH (09:30)
[2018-03-17] MEDS: Famotidine PF Inj 20 MG/2 ML Vial IV.PUSH SCH (09:45)
--- NOTE | 2018-03-17 10:30 | P.PNNP ---
Subjective Interval history: Pt s/p successful extubation 03/16/18. He is alert and oriented. Complaining of pain. <Deb Garcia R - Last Filed: 03/17/18 10:25> Physical Exam Vital signs: Vital Signs 03/16/18 11:30 03/16/18 12:00 03/16/18 14:00 Temperature 98 F Pulse Rate 71 72 67 Respiratory Rate 25 H 25 H Blood Pressure 189/90 H Pulse Oximetry 96 03/16/18 16:00 03/16/18 16:01 03/16/18 16:34 Temperature 98.2 F Pulse Rate 74 86 Respiratory Rate 21 18 Blood Pressure 173/77 H Pulse Oximetry 100 03/16/18 17:00 03/16/18 18:00 03/16/18 19:00 Temperature Pulse Rate 96 H 96 H 102 H Respiratory Rate 25 H 24 27 H Blood Pressure 185/81 H 177/74 H Pulse Oximetry 98 98 98 03/16/18 19:01 03/16/18 20:00 03/16/18 20:01 Temperature 98.5 F Pulse Rate 105 H 107 H 103 H Respiratory Rate 27 H 30 H 28 H Blood Pressure 169/70 H 191/73 H 191/73 H Pulse Oximetry 97 98 97 03/16/18 21:00 03/16/18 21:01 03/16/18 21:16 Temperature Pulse Rate 103 H 102 H 98 H Respiratory Rate 31 H 28 H 18 Blood Pressure 187/83 H Pulse Oximetry 98 98 98 03/16/18 22:00 03/16/18 22:01 03/16/18 23:00 Temperature Pulse Rate 121 H 120 H 122 H Respiratory Rate 44 H 35 H 26 H Blood Pressure 191/78 H Pulse Oximetry 93 L 93 L 95 03/16/18 23:01 03/17/18 00:00 03/17/18 00:01 Temperature 98.3 F Pulse Rate 119 H 107 H 99 H Respiratory Rate 29 H 27 H 26 H Blood Pressure 176/73 H 153/67 H Pulse Oximetry 95 95 94 L 03/17/18 00:33 03/17/18 02:00 03/17/18 04:00 Temperature 98.3 F Pulse Rate 110 H 110 H 104 H Respiratory Rate 18 26 H Blood Pressure 190/80 H Pulse Oximetry 94 L 03/17/18 04:06 03/17/18 06:00 Temperature Pulse Rate 102 H 110 H Respiratory Rate 18 Blood Pressure Pulse Oximetry Intake & Output 03/16/18 03/17/18 03/17/18 18:59 06:59 18:59 Intake Total 1768 / 1768 1040 / 1040 Output Total 1600 / 1600 1800 / 1800 Balance 168 / 168 -760 / -760 Weight 117 kg Intake: IV 1100 / 1100 100 / 100 D5W Inj 1,000 ML @ 42 mls/hr IV 1000 / 1000 .CONT .[id number] [facility] Rx#:[id number] Zosyn 2.25 GM Premix 50 ML @ 100 / 100 100 / 100 100 mls/hr IV.SIG Q6H [facility] Rx#: [id number] Oral 0 / 0 940 / 940 Tube Feeding 518 / 518 Water Bolus Amount 150 / 150 Output: Urine 300 / 300 Urine Amount (Catheter) 1300 / 1300 1600 / 1600 Indwelling Urethral Catheter 1300 / 1300 1600 / 1600 Stool Amount (Stoma) 0 / 0 200 / 200 Pre-Hospital: Left Lower 200 / 200 Abdomen Right Lower Abdomen 0 / 0 0 / 0 Other: Date of Last Bowel Movement 03/15/18 03/15/18 # Bowel Movements 1 1 - Constitutional no acute distress - Routine HEENT Exam Head: Present: normocephalic - Routine Neck Exam Present: supple - Routine Respiratory Exam Present: rhonchi, diminished air movement - Routine Cardiovascular Exam Present: RRR, S1, S2 - Routine Abdominal Exam Present: soft - Routine Extremities Exam Present: edema (some edema still present in hips.) - Routine Neurological Exam Present: alert, oriented X3 - Urinary Catheter Management Indwelling Urethral Catheter Cath placed during this visit: no Urethral indwelling: Yes Reason for continuing: Hourly intake/output <Deb Garcia - Last Filed: 03/17/18 10:25> Vital signs: Vital Signs 03/17/18 19:00 03/17/18 19:01 03/17/18 19:30 Temperature Pulse Rate 86 70 81 Respiratory Rate 32 H 32 H 31 H Blood Pressure 170/69 H 162/75 H Pulse Oximetry 94 L 95 94 L 03/17/18 20:00 03/17/18 20:30 03/17/18 21:00 Temperature 98.4 F Pulse Rate 82 78 79 Respiratory Rate 29 H 31 H 27 H Blood Pressure 173/79 H 174/81 H 175/82 H Pulse Oximetry 94 L 94 L 94 L 03/17/18 21:30 03/17/18 21:55 03/17/18 22:00 Temperature Pulse Rate 93 H 80 83 Respiratory Rate 32 H 20 28 H Blood Pressure 177/86 H 172/98 H Pulse Oximetry 92 L 96 97 03/17/18 22:31 03/17/18 23:00 03/17/18 23:31 Temperature Pulse Rate 86 78 83 Respiratory Rate 26 H 20 25 H Blood Pressure 191/91 H 163/74 H 185/86 H Pulse Oximetry 94 L 96 96 03/18/18 00:00 03/18/18 00:30 03/18/18 01:00 Temperature Pulse Rate 76 80 81 Respiratory Rate 21 21 26 H Blood Pressure 173/77 H 172/78 H 178/76 H Pulse Oximetry 95 94 L 93 L 03/18/18 01:30 03/18/18 02:00 03/18/18 02:30 Temperature Pulse Rate 95 H 95 H 81 Respiratory Rate 26 H 25 H 20 Blood Pressure 174/79 H 194/91 H 174/79 H Pulse Oximetry 94 L 95 94 L 03/18/18 03:00 03/18/18 03:30 03/18/18 04:00 Temperature Pulse Rate 76 73 75 Respiratory Rate 18 18 18 Blood Pressure 155/72 H 167/74 H 168/77 H Pulse Oximetry 96 97 97 03/18/18 04:15 03/18/18 04:30 03/18/18 05:00 Temperature Pulse Rate 79 77 79 Respiratory Rate 19 24 26 H Blood Pressure 169/77 H 165/77 H Pulse Oximetry 91 L 95 03/18/18 05:30 03/18/18 06:00 03/18/18 08:00 Temperature Pulse Rate 89 82 105 H Respiratory Rate 25 H 24 Blood Pressure 177/96 H 180/84 H Pulse Oximetry 94 L 94 L 03/18/18 08:45 03/18/18 10:00 03/18/18 12:00 Temperature Pulse Rate 82 174 H Respiratory Rate Blood Pressure Pulse Oximetry 94 L Intake & Output 03/17/18 03/18/18 03/18/18 18:59 06:59 18:59 Intake Total 1498 / 1498 440 / 440 Output Total 1200 / 1200 1125 / 1125 Balance 298 / 298 -685 / -685 Weight 113.5 kg Intake: IV 350 / 350 200 / 200 Precedex Inj 1,000 MCG In NS 250 / 250 Inj 240 ML @ 0.2 MCG/KG/HR 5.95 mls/hr IV.CONT TITRATE PRN Rx# :[id number] Zosyn 2.25 GM Premix 50 ML @ 100 / 100 100 / 100 100 mls/hr IV.SIG Q6H [facility] Rx#: [id number] KCl 20 mEq Premix Inj 20 meq In 100 / 100 100 ml @ 50 mls/hr IV.SIG Q2H [facility] Rx#:[id number] Oral 480 / 480 240 / 240 Tube Feeding 518 / 518 Water Bolus Amount 150 / 150 Output: Urine 300 / 300 250 / 250 Urine Amount (Catheter) 800 / 800 775 / 775 Indwelling Urethral Catheter 800 / 800 775 / 775 Stool Amount (Stoma) 100 / 100 100 / 100 Pre-Hospital: Left Lower 100 / 100 100 / 100 Abdomen Right Lower Abdomen 0 / 0 Other: # Voids 3 Date of Last Bowel Movement 03/15/18 03/17/18 # Bowel Movements 1 - Urinary Catheter Management Indwelling Urethral Catheter Cath placed during this visit: no <Hesham Sims - Last Filed: 03/18/18 14:12> Assessment and Plan - Assessment (1) Acute renal insufficiency Code(s): N28.9 - Disorder of kidney and ureter, unspecified Status: Acute Plan: ATN showing significant improvement with good urine output. Will continue to monitor. Medications should be adjusted for the patient's estimated GFR if clinically indicated. Avoid agents with significant potential for nephrotoxicity possible including NSAIDs for analgesia, iodine contrast agents. Gadolinium is contraindicated if the GFR is below 30. (2) Hypertension Code(s): I10 - Essential (primary) hypertension Status: Acute Plan: Started on Hydralazine Will add Amlodipine as well. <Deb Garcia - Last Filed: 03/17/18 10:25> - Assessment (1) Acute renal insufficiency Code(s): N28.9 - Disorder of kidney and ureter, unspecified Status: Acute (2) Hypertension Code(s): I10 - Essential (primary) hypertension Status: Acute - Attending Attestation The exam, history, and the medical decision-making described in the above note were completed with the assistance of the VIOLA. I reviewed and agree with the findings presented. <Hesham Sims - Last Filed: 03/18/18 14:12> Procedures - Arterial Line Size (Gauge): 18 <Deb Garcia - Last Filed: 03/17/18 10:25>
--- NOTE | 2018-03-17 12:52 | P.PNPAL ---
Palliative care continues to follow along with Mr. Lima. Recently extubated yesterday 03/16. Today he is more alert and able to make his needs known. States he remembers palliative care visit yesterday with myself and ANNAMARIE Eisenberg. He is appropriate and pleasant throughout conversation. No family at bedside. Reports his family came to visit last night and will be bringing in his glasses during their visit today. Gently reviewed discussion from yesterday regarding living will and health care surrogate. He is unsure if he completed such documents but elects to complete a health care surrogate during visit today. Mr. Lima has designated his daughter, Lorie Timmons as primary HCS and daughter, Yvette Sanchez as alternate HCS. Original and copies provided to patient. Copy faxed to HIM to be scanned into EMR and copy placed on chart. Mr. Lima reports he has been unable to get much sleep since coming into the hospital. His only complaint at this time is chest pain when he coughs. RN at bedside providing care. Denies any shortness of breath. Currently on NC, breathing comfortably. Denies any further concerns or questions. Palliative care will continue to follow along throughout hospitalization.
[2018-03-17] MEDS: amLODIPine 5 MG Tablet PO SCH (13:56)
--- NOTE | 2018-03-17 14:46 | P.PNCC ---
Subjective Subjective Remarks/Hospital Course: 03/11: 82-year-old male presents with chief complaint of not feeling well, times today. On EMS arrival they found him pale diaphoretic tachycardic and critically ill. The patient has a history of colon cancer. According to nursing staff his family had some concern that he may intentionally took too many blood pressure medication. He was emergently intubated by ED attending for an airway protection due to altered mental status as well as severe hemodynamic instability. The patient is unable to give any additional history. No family available in the emergency department. 03/12: Remains sedated, orally intubated on mechanical ventilation. Hypotensive on pressors. Borderline urine output. 03/13: Sedated, arousable, not following commands. Remains orally intubated on mechanical ventilation. Urine output borderline. Off levophed. 03/14: remains intubated and deeply sedated on versed. discussed with RN: plan to wean sedation for appropriate RASS -2 goal. off vasopressors. 03/15: modest diuresis. still very encephalopathic, and when pressure support is weaned, becomes quite tachypneic with respiratory distress. 03/16: excellent diuresis. net -5L/24h. awake and alert this morning. passed SBT. will wean to extubate. Cr also continues to improve. 03/17: continues to have adequate diuresis. extubated yesterday. Cr improving. complains of chest pain with deep inspiration and cough. denies SOB. hard of hearing. Objective Vital Signs / I&O: Vital Signs 03/16/18 16:00 03/16/18 16:01 03/16/18 16:34 Temperature 36.8 C Pulse Rate 74 86 Respiratory Rate 21 18 Blood Pressure 173/77 H Pulse Oximetry 100 03/16/18 17:00 03/16/18 18:00 03/16/18 19:00 Temperature Pulse Rate 96 H 96 H 102 H Respiratory Rate 25 H 24 27 H Blood Pressure 185/81 H 177/74 H Pulse Oximetry 98 98 98 03/16/18 19:01 03/16/18 20:00 03/16/18 20:01 Temperature 36.9 C Pulse Rate 105 H 107 H 103 H Respiratory Rate 27 H 30 H 28 H Blood Pressure 169/70 H 191/73 H 191/73 H Pulse Oximetry 97 98 97 03/16/18 21:00 03/16/18 21:01 03/16/18 21:16 Temperature Pulse Rate 103 H 102 H 98 H Respiratory Rate 31 H 28 H 18 Blood Pressure 187/83 H Pulse Oximetry 98 98 98 03/16/18 22:00 03/16/18 22:01 03/16/18 23:00 Temperature Pulse Rate 121 H 120 H 122 H Respiratory Rate 44 H 35 H 26 H Blood Pressure 191/78 H Pulse Oximetry 93 L 93 L 95 03/16/18 23:01 03/17/18 00:00 03/17/18 00:01 Temperature 36.8 C Pulse Rate 119 H 107 H 99 H Respiratory Rate 29 H 27 H 26 H Blood Pressure 176/73 H 153/67 H Pulse Oximetry 95 95 94 L 03/17/18 00:33 03/17/18 02:00 03/17/18 04:00 Temperature 36.8 C Pulse Rate 110 H 110 H 104 H Respiratory Rate 18 26 H Blood Pressure 190/80 H Pulse Oximetry 94 L 03/17/18 04:06 03/17/18 06:00 Temperature Pulse Rate 102 H 110 H Respiratory Rate 18 Blood Pressure Pulse Oximetry Intake & Output 03/16/18 03/17/18 03/17/18 18:59 06:59 18:59 Intake Total 1768 / 1768 1040 / 1040 Output Total 1600 / 1600 1800 / 1800 Balance 168 / 168 -760 / -760 Weight 117 kg Intake: IV 1100 / 1100 100 / 100 D5W Inj 1,000 ML @ 42 mls/hr IV 1000 / 1000 .CONT .[id number] [facility] Rx#:[id number] Zosyn 2.25 GM Premix 50 ML @ 100 / 100 100 / 100 100 mls/hr IV.SIG Q6H [facility] Rx#: [id number] Oral 0 / 0 940 / 940 Tube Feeding 518 / 518 Water Bolus Amount 150 / 150 Output: Urine 300 / 300 Urine Amount (Catheter) 1300 / 1300 1600 / 1600 Indwelling Urethral Catheter 1300 / 1300 1600 / 1600 Stool Amount (Stoma) 0 / 0 200 / 200 Pre-Hospital: Left Lower 200 / 200 Abdomen Right Lower Abdomen 0 / 0 0 / 0 Other: Date of Last Bowel Movement 03/15/18 03/15/18 # Bowel Movements 1 1 Result Diagrams: 03/15/18 05:07 03/17/18 04:53 Objective Remarks: gen: elderly male, lying in bed HEENT: awake, alert, no icterus, tongue/ mucosa moist Neck: No JVD Chest/Pulm: nc o2. equal chest rise. CVS: S1-S2 regular, no murmur GI/abdomen: soft, nontender, no guarding. Colostomy in place Extremities: warm bilaterally, some LE edema. Neuro: RASS 0. follow commands. Assessment and Plan - Assessment and Plan Plan: Assessment: 82yM with resolving severe multiorgan failure. appreciate palliative care consultation. clinically improving. could still use some diuresis and needs aggressive physical therapy. Acute metabolic encephalopathy - resolved. - goal RASS 0 - frequent neuro checks Acute Hypoxic Respiratory failure- resolving. - nc o2 for goal spo2 > 90% - aggressive pulmonary toilet - OOB with PT -DuoNeb scheduled and as needed COPD -No exacerbation -DuoNeb scheduled and as needed Severe metabolic acidosis- resolved. Lactic Acidosis- resolved. -Non-anion gap -CT abdomen and pelvis unremarkable Shock- resolved -Telemetry -2D echo: EF 35%. -Series of troponins and EKGs to rule out ACS -Stress dose steroids: continue weaning. Acute kidney injury superimposed on CKD, unknown stage- improving. -Strict I's and O's -Monitor creatinine and electrolytes -nephrology consult. Atrial fibrillation -Rate controlled -Telemetry Acute protein calorie malnutrition- moderate Colon cancer s/p resection - advance diet as tolerated. DVT GI prophylaxis -Teds SCDs -Heparin -Pepcid Dispo: needs at least 1 more day in ICU. working on mobility and strengthening. Procedures - Arterial Line Size (Gauge): 18
[2018-03-17] MEDS: Chlorhexidine 0.12% Oral Kit 15 ML UDC OROPHARYNG SCH ×2 (17:15→21:27)
[2018-03-17] MEDS ORDERED: *Labetalol HCl Inj 100 MG/20 ML Vial PERIprocedural Use ONLY IV.PUSH PRN (17:34)
[2018-03-17] MEDS ORDERED: Labetalol HCl Inj 100 MG/20 ML Vial ONE (18:36)
[2018-03-18] MEDS: hydrALAZINE 50 MG Tablet PO SCH ×2 (01:52→10:09)
[2018-03-18] MEDS: Piperacil/Tazo 2.25 GM Premix 50 ML IV.SIG SCH ×4 (01:52→20:28)
[2018-03-18] MEDS: Heparin - SQ 10,000 UNITS/ML Vial SQ SCH ×3 (06:18→21:19)
[2018-03-18] MEDS: Hydrocortisone Sod Succinate 100 MG Vial IV.PUSH SCH ×2 (06:26→17:55)
[2018-03-18 06:29] LABS: Baso % (Auto) 0.1 % (0.0-2.0); Eos # (Auto) 0.1 th/mm3 (0.0-0.4); Eos % (Auto) 0.6 % (0.0-4.0); Hematocrit 43.2 % (39.0-51.0); Hemoglobin 13.6 gm/dL (13.0-17.0); Lymph # (Auto) 4.2 th/mm3 (1.0-4.8); Lymph % (Auto) 31.3 % (9.0-44.0); Mean Corpuscular HGB Conc 31.6 % (32.0-36.0); Mean Corpuscular Hemoglobin 20.2 pg (27.0-34.0); Mean Corpuscular Volume 64.1 fL (80.0-100.0); Mean Platelet Volume 8.7 fL (7.0-11.0); Mono # (Auto) 1.1 th/mm3 (0.0-0.9); Mono % (Auto) 8.5 % (0.0-8.0); Neut % (Auto) 59.5 % (16.0-70.0); Platelet Count 109 th/mm3 (150-450); Red Blood Count 6.74 mil/mm3 (4.50-5.90); Red Cell Distribution Width 20.4 % (11.6-17.2); White Blood Count 13.5 th/mm3 (4.0-11.0)
[2018-03-18 07:01] LABS: Albumin 2.8 g/dL (3.4-5.0); Anion Gap 11 meq/L (5-15); Aspartate Aminotransferase 67 U/L (15-37); Blood Urea Nitrogen 48 mg/dL (7-18); Calcium 8.9 mg/dL (8.5-10.1); Carbon Dioxide 28.9 meq/L (21.0-32.0); Chloride 105 meq/L (98-107); Glomerular Filtration Rate 30 mL/min (>89); Glucose,Random 99 mg/dL (74-106); Potassium 3.4 meq/L (3.5-5.1); Sodium 145 meq/L (136-145)
[2018-03-18 07:03] LABS: Alanine Aminotransferase 142 U/L (12-78)
[2018-03-18 07:05] LABS: Alkaline Phosphatase 92 U/L (45-117); Total Protein 6.5 g/dL (6.4-8.2)
[2018-03-18] MEDS: Chlorhexidine 0.12% Oral Kit 15 ML UDC OROPHARYNG SCH ×2 (10:05→20:29)
[2018-03-18] MEDS: Acetaminophen 325 MG Tablet PO PRN (10:05)
[2018-03-18] MEDS: Senna/Docusate Sodium 8.6/50 MG Tablet PO SCH ×2 (10:09→20:27)
[2018-03-18] MEDS: amLODIPine 5 MG Tablet PO SCH (10:09)
[2018-03-18] MEDS ORDERED: Magnesium Sulfate Inj 2 GM in Sodium Chlor 0.9% Inj 96 ML IV.SIG STA (12:54)
[2018-03-18] MEDS ORDERED: Digoxin Inj 500 MCG/2 ML Ampul ONE (13:05)
[2018-03-18] MEDS ORDERED: Digoxin Inj 500 MCG/2 ML Ampul IV.PUSH STA (13:13)
[2018-03-18] MEDS: Potassium Chlor 20 mEq Premix 20 MEQ/100 ML PIGGYBACK IV.SIG SCH ×2 (13:27→18:01)
[2018-03-18] MEDS: Mag Sulf 1 gm/100 ml Premix 100 ML IV.SIG SCH ×2 (13:28→15:08)
[2018-03-18] MEDS: Metoprolol Inj 5 MG/5 ML Vial IV.PUSH PRN ×2 (13:30→13:32)
[2018-03-18] MEDS ORDERED: Potassium Chloride 25 MEQ Effervescent Tablet PO ONE (13:30)
--- NOTE | 2018-03-18 14:17 | P.PNNP ---
Subjective Interval history: Patient extubated. Daughter by bedside. Patient appears to be relatively alert answering questions appropriately. Physical Exam Vital signs: Vital Signs 03/17/18 19:00 03/17/18 19:01 03/17/18 19:30 Temperature Pulse Rate 86 70 81 Respiratory Rate 32 H 32 H 31 H Blood Pressure 170/69 H 162/75 H Pulse Oximetry 94 L 95 94 L 03/17/18 20:00 03/17/18 20:30 03/17/18 21:00 Temperature 98.4 F Pulse Rate 82 78 79 Respiratory Rate 29 H 31 H 27 H Blood Pressure 173/79 H 174/81 H 175/82 H Pulse Oximetry 94 L 94 L 94 L 03/17/18 21:30 03/17/18 21:55 03/17/18 22:00 Temperature Pulse Rate 93 H 80 83 Respiratory Rate 32 H 20 28 H Blood Pressure 177/86 H 172/98 H Pulse Oximetry 92 L 96 97 03/17/18 22:31 03/17/18 23:00 03/17/18 23:31 Temperature Pulse Rate 86 78 83 Respiratory Rate 26 H 20 25 H Blood Pressure 191/91 H 163/74 H 185/86 H Pulse Oximetry 94 L 96 96 03/18/18 00:00 03/18/18 00:30 03/18/18 01:00 Temperature Pulse Rate 76 80 81 Respiratory Rate 21 21 26 H Blood Pressure 173/77 H 172/78 H 178/76 H Pulse Oximetry 95 94 L 93 L 03/18/18 01:30 03/18/18 02:00 03/18/18 02:30 Temperature Pulse Rate 95 H 95 H 81 Respiratory Rate 26 H 25 H 20 Blood Pressure 174/79 H 194/91 H 174/79 H Pulse Oximetry 94 L 95 94 L 03/18/18 03:00 03/18/18 03:30 03/18/18 04:00 Temperature Pulse Rate 76 73 75 Respiratory Rate 18 18 18 Blood Pressure 155/72 H 167/74 H 168/77 H Pulse Oximetry 96 97 97 03/18/18 04:15 03/18/18 04:30 03/18/18 05:00 Temperature Pulse Rate 79 77 79 Respiratory Rate 19 24 26 H Blood Pressure 169/77 H 165/77 H Pulse Oximetry 91 L 95 03/18/18 05:30 03/18/18 06:00 03/18/18 08:00 Temperature Pulse Rate 89 82 105 H Respiratory Rate 25 H 24 Blood Pressure 177/96 H 180/84 H Pulse Oximetry 94 L 94 L 03/18/18 08:45 03/18/18 10:00 03/18/18 12:00 Temperature Pulse Rate 82 174 H Respiratory Rate Blood Pressure Pulse Oximetry 94 L Intake & Output 03/17/18 03/18/18 03/18/18 18:59 06:59 18:59 Intake Total 1498 / 1498 440 / 440 Output Total 1200 / 1200 1125 / 1125 Balance 298 / 298 -685 / -685 Weight 113.5 kg Intake: IV 350 / 350 200 / 200 Precedex Inj 1,000 MCG In NS 250 / 250 Inj 240 ML @ 0.2 MCG/KG/HR 5.95 mls/hr IV.CONT TITRATE PRN Rx# :[id number] Zosyn 2.25 GM Premix 50 ML @ 100 / 100 100 / 100 100 mls/hr IV.SIG Q6H [facility] Rx#: [id number] KCl 20 mEq Premix Inj 20 meq In 100 / 100 100 ml @ 50 mls/hr IV.SIG Q2H [facility] Rx#:[id number] Oral 480 / 480 240 / 240 Tube Feeding 518 / 518 Water Bolus Amount 150 / 150 Output: Urine 300 / 300 250 / 250 Urine Amount (Catheter) 800 / 800 775 / 775 Indwelling Urethral Catheter 800 / 800 775 / 775 Stool Amount (Stoma) 100 / 100 100 / 100 Pre-Hospital: Left Lower 100 / 100 100 / 100 Abdomen Right Lower Abdomen 0 / 0 Other: # Voids 3 Date of Last Bowel Movement 03/15/18 03/17/18 # Bowel Movements 1 Narrative: GENERAL: Not in respiratory distress. SKIN: Warm and dry. HEAD: Normocephalic. EYES: No scleral icterus. No injection or drainage. NECK: Supple, trachea midline. No JVD or lymphadenopathy. CARDIOVASCULAR: Regular rate and rhythm without murmurs, gallops, or rubs. RESPIRATORY: Breath sounds equal bilaterally. No accessory muscle use. GASTROINTESTINAL: Abdomen soft, non-tender, nondistended. MUSCULOSKELETAL: No cyanosis, or edema. - Urinary Catheter Management Indwelling Urethral Catheter Cath placed during this visit: no Urethral indwelling: Yes Reason for continuing: Hourly intake/output Assessment and Plan - Assessment (1) Acute renal insufficiency Code(s): N28.9 - Disorder of kidney and ureter, unspecified Status: Acute Plan: ATN showing significant improvement with good urine output. We will see intermittently at this point in time. Medications should be adjusted for the patient's estimated GFR if clinically indicated. Avoid agents with significant potential for nephrotoxicity possible including NSAIDs for analgesia, iodine contrast agents. Gadolinium is contraindicated if the GFR is below 30. (2) Hypertension Code(s): I10 - Essential (primary) hypertension Status: Acute (3) Hypokalemia Code(s): E87.6 - Hypokalemia Status: Acute Plan: Most likely related to polyuric recovery phase of ATN with some tubular dysfunction and urinary potassium losses. This should self-correct. Continues to supplement as required. I will also order a magnesium level. Procedures - Arterial Line Size (Gauge): 18
--- NOTE | 2018-03-18 15:17 | P.PNCC ---
Subjective Subjective Remarks/Hospital Course: 03/11: 82-year-old male presents with chief complaint of not feeling well, times today. On EMS arrival they found him pale diaphoretic tachycardic and critically ill. The patient has a history of colon cancer. According to nursing staff his family had some concern that he may intentionally took too many blood pressure medication. He was emergently intubated by ED attending for an airway protection due to altered mental status as well as severe hemodynamic instability. The patient is unable to give any additional history. No family available in the emergency department. 03/12: Remains sedated, orally intubated on mechanical ventilation. Hypotensive on pressors. Borderline urine output. 03/13: Sedated, arousable, not following commands. Remains orally intubated on mechanical ventilation. Urine output borderline. Off levophed. 03/14: remains intubated and deeply sedated on versed. discussed with RN: plan to wean sedation for appropriate RASS -2 goal. off vasopressors. 03/15: modest diuresis. still very encephalopathic, and when pressure support is weaned, becomes quite tachypneic with respiratory distress. 03/16: excellent diuresis. net -5L/24h. awake and alert this morning. passed SBT. will wean to extubate. Cr also continues to improve. 03/17: continues to have adequate diuresis. extubated yesterday. Cr improving. complains of chest pain with deep inspiration and cough. denies SOB. hard of hearing. 03/18: went into afib RVR around noon. K low at 3.4. less auto-diuresis today, and although edema is markedly improved, likely still some element of volume overload. more awake and alert and not confused today. hard of hearing and I asked his daughter to bring in his hearing aids. given metoprolol 10mg iv, digoxin 0.5mg iv x 1, 90 meq kcl, and 2gm mgso4 with some improvement in rate. started on po diltiazem. hospital out of iv diltiazem. patient is asymptomatic and denies chest pain, sob. ros unremarkable. Objective Vital Signs / I&O: Vital Signs 03/17/18 19:00 03/17/18 19:01 03/17/18 19:30 Temperature Pulse Rate 86 70 81 Respiratory Rate 32 H 32 H 31 H Blood Pressure 170/69 H 162/75 H Pulse Oximetry 94 L 95 94 L 03/17/18 20:00 03/17/18 20:30 03/17/18 21:00 Temperature 36.9 C Pulse Rate 82 78 79 Respiratory Rate 29 H 31 H 27 H Blood Pressure 173/79 H 174/81 H 175/82 H Pulse Oximetry 94 L 94 L 94 L 03/17/18 21:30 03/17/18 21:55 03/17/18 22:00 Temperature Pulse Rate 93 H 80 83 Respiratory Rate 32 H 20 28 H Blood Pressure 177/86 H 172/98 H Pulse Oximetry 92 L 96 97 03/17/18 22:31 03/17/18 23:00 03/17/18 23:31 Temperature Pulse Rate 86 78 83 Respiratory Rate 26 H 20 25 H Blood Pressure 191/91 H 163/74 H 185/86 H Pulse Oximetry 94 L 96 96 03/18/18 00:00 03/18/18 00:30 03/18/18 01:00 Temperature Pulse Rate 76 80 81 Respiratory Rate 21 21 26 H Blood Pressure 173/77 H 172/78 H 178/76 H Pulse Oximetry 95 94 L 93 L 03/18/18 01:30 03/18/18 02:00 03/18/18 02:30 Temperature Pulse Rate 95 H 95 H 81 Respiratory Rate 26 H 25 H 20 Blood Pressure 174/79 H 194/91 H 174/79 H Pulse Oximetry 94 L 95 94 L 03/18/18 03:00 03/18/18 03:30 03/18/18 04:00 Temperature Pulse Rate 76 73 75 Respiratory Rate 18 18 18 Blood Pressure 155/72 H 167/74 H 168/77 H Pulse Oximetry 96 97 97 03/18/18 04:15 03/18/18 04:30 03/18/18 05:00 Temperature Pulse Rate 79 77 79 Respiratory Rate 19 24 26 H Blood Pressure 169/77 H 165/77 H Pulse Oximetry 91 L 95 03/18/18 05:30 03/18/18 06:00 03/18/18 08:00 Temperature Pulse Rate 89 82 105 H Respiratory Rate 25 H 24 Blood Pressure 177/96 H 180/84 H Pulse Oximetry 94 L 94 L 03/18/18 08:45 03/18/18 10:00 03/18/18 12:00 Temperature Pulse Rate 82 174 H Respiratory Rate Blood Pressure Pulse Oximetry 94 L Intake & Output 03/17/18 03/18/18 03/18/18 18:59 06:59 18:59 Intake Total 1498 / 1498 440 / 440 150 / 150 Output Total 1200 / 1200 1125 / 1125 Balance 298 / 298 -685 / -685 150 / 150 Weight 113.5 kg Intake: IV 350 / 350 200 / 200 150 / 150 Precedex Inj 1,000 MCG In NS 250 / 250 Inj 240 ML @ 0.2 MCG/KG/HR 5.95 mls/hr IV.CONT TITRATE PRN Rx# :[id number] Magnesium Sulfate 1 gm/D5W 100 100 / 100 ml Premix 100 ML @ 100 mls/hr IV.SIG Q1H VIJAYA Rx#:[id number] Zosyn 2.25 GM Premix 50 ML @ 100 / 100 100 / 100 50 / 50 100 mls/hr IV.SIG Q6H VIJAYA Rx#: [id number] KCl 20 mEq Premix Inj 20 meq In 100 / 100 100 ml @ 50 mls/hr IV.SIG Q2H VIJAYA Rx#:[id number] Oral 480 / 480 240 / 240 Tube Feeding 518 / 518 Water Bolus Amount 150 / 150 Output: Urine 300 / 300 250 / 250 Urine Amount (Catheter) 800 / 800 775 / 775 Indwelling Urethral Catheter 800 / 800 775 / 775 Stool Amount (Stoma) 100 / 100 100 / 100 Pre-Hospital: Left Lower 100 / 100 100 / 100 Abdomen Right Lower Abdomen 0 / 0 Other: # Voids 3 Date of Last Bowel Movement 03/15/18 03/17/18 # Bowel Movements 1 Result Diagrams: 03/18/18 05:37 03/18/18 05:37 Objective Remarks: gen: elderly male, lying in bed HEENT: awake, alert, no icterus, tongue/ mucosa moist Neck: No JVD Chest/Pulm: nc o2. equal chest rise. CVS: tachycardic rate of 181, irregularly irregular rhythm. afib by tele and by EKG at bedside. GI/abdomen: soft, nontender, no guarding. Colostomy in place Extremities: warm bilaterally, some LE edema. Neuro: RASS 0. follow commands. Assessment and Plan - Assessment and Plan Plan: Assessment: 82yM with resolving severe multiorgan failure. now with afib RVR likely from electrolyte disturbances and volume overload. appreciate palliative care consultation. clinically improving. could still use some diuresis and needs aggressive physical therapy. Atrial fibrillation with rapid ventricular response -digoxin 0.5mg iv x 1 - 90meq kcl - 2gm mgso4 - aggressive electrolyte replacement - lasix 40mg iv x 1 - metoprolol 10mg iv x 1 - start diltiazem 60mg po q6h - hospital shortage of iv diltiazem -Telemetry Acute metabolic encephalopathy - resolved. - goal RASS 0 - frequent neuro checks Acute Hypoxic Respiratory failure- resolved. - nc o2 for goal spo2 > 90% - aggressive pulmonary toilet - OOB with PT -DuoNeb scheduled and as needed COPD -No exacerbation -DuoNeb scheduled and as needed Severe metabolic acidosis- resolved. Lactic Acidosis- resolved. -Non-anion gap -CT abdomen and pelvis unremarkable Shock- resolved -Telemetry -2D echo: EF 35%. -Series of troponins and EKGs to rule out ACS -Stress dose steroids: continue weaning. Acute kidney injury superimposed on CKD, unknown stage- improving. -Strict I's and O's -Monitor creatinine and electrolytes -nephrology consult. Acute protein calorie malnutrition- moderate Colon cancer s/p resection - advance diet as tolerated. needs OOB with PT. DVT GI prophylaxis -Teds SCDs -Heparin -Pepcid Dispo: must remain in ICU with new afib RVR. Procedures - Arterial Line Size (Gauge): 18
[2018-03-18] MEDS: dilTIAZem 30 MG Tablet PO SCH (20:27)
[2018-03-18] MEDS: Dextrose 5% in Water Inj 1,000 ML IV.CONT SCH (20:28)
[2018-03-19] MEDS: hydrALAZINE 50 MG Tablet PO SCH
[2018-03-19] MEDS: dilTIAZem 30 MG Tablet PO SCH (01:37)
[2018-03-19] MEDS ORDERED: hydrALAZINE HCl Inj 20 MG/ML Vial IV.PUSH ONE (01:48)
[2018-03-19] MEDS: Acetaminophen 325 MG Tablet PO PRN (02:43)
[2018-03-19 04:52] LABS: Calcium 8.9 mg/dL (8.5-10.1); Carbon Dioxide 29.9 meq/L (21.0-32.0); Phosphorus 3.1 mg/dL (2.5-4.9); Potassium 3.5 meq/L (3.5-5.1)
[2018-03-19] MEDS: Dextrose 5% in Water Inj 1,000 ML IV.CONT SCH ×2 (05:18→16:43)
[2018-03-19] MEDS: Heparin - SQ 10,000 UNITS/ML Vial SQ SCH ×3 (05:42→20:41)
[2018-03-19] MEDS: Hydrocortisone Sod Succinate 100 MG Vial IV.PUSH SCH (08:00)
[2018-03-19] MEDS: amLODIPine 5 MG Tablet PO SCH (08:00)
[2018-03-19] MEDS: dilTIAZem 60 MG Tablet PO SCH ×3 (08:00→19:56)
[2018-03-19] MEDS: Senna/Docusate Sodium 8.6/50 MG Tablet PO SCH ×2 (08:00→20:02)
[2018-03-19] MEDS: hydrALAZINE HCl Inj 20 MG/ML Vial IV.PUSH PRN ×3 (08:01→23:23)
--- NOTE | 2018-03-19 10:35 | P.PNIM ---
Subjective Interval history: 03/11: 82-year-old male presents with chief complaint of not feeling well, times today. On EMS arrival they found him pale diaphoretic tachycardic and critically ill. The patient has a history of colon cancer. According to nursing staff his family had some concern that he may intentionally took too many blood pressure medication. He was emergently intubated by ED attending for an airway protection due to altered mental status as well as severe hemodynamic instability. The patient is unable to give any additional history. No family available in the emergency department. 03/12: Remains sedated, orally intubated on mechanical ventilation. Hypotensive on pressors. Borderline urine output. 03/13: Sedated, arousable, not following commands. Remains orally intubated on mechanical ventilation. Urine output borderline. Off levophed. 03/14: remains intubated and deeply sedated on versed. discussed with RN: plan to wean sedation for appropriate RASS -2 goal. off vasopressors. 03/15: modest diuresis. still very encephalopathic, and when pressure support is weaned, becomes quite tachypneic with respiratory distress. 03/16: excellent diuresis. net -5L/24h. awake and alert this morning. passed SBT. will wean to extubate. Cr also continues to improve. 03/17: continues to have adequate diuresis. extubated yesterday. Cr improving. complains of chest pain with deep inspiration and cough. denies SOB. hard of hearing. 03/18: went into afib RVR around noon. K low at 3.4. less auto-diuresis today, and although edema is markedly improved, likely still some element of volume overload. more awake and alert and not confused today. hard of hearing and I asked his daughter to bring in his hearing aids. given metoprolol 10mg iv, digoxin 0.5mg iv x 1, 90 meq kcl, and 2gm mgso4 with some improvement in rate. started on po diltiazem. hospital out of iv diltiazem. patient is asymptomatic and denies chest pain, sob. ros unremarkable. 03-19 TRANSFERRED TO OUR SERVICE TODAY HAD ISSUES WITH BLOOD PRESSURE MEDS ADJUSTED BY DR [facility] WILL TRY TO KEEP SBP BETWEEN 160 AND 180 SINCE HE PROBABLY HAS NEVER BEEN WELL CONTROLLED AM LABS PT AND OT DW RN AND PT Had issues with A. fib Seen by nephrology We will replace his potassium orally Physical Exam Vital signs: Vital Signs 03/18/18 12:00 03/18/18 16:00 03/18/18 16:27 Temperature 97.9 F 97.5 F L Pulse Rate 174 H 157 H 67 Respiratory Rate 19 31 H 20 Blood Pressure 132/87 172/111 H Pulse Oximetry 94 L 94 L 03/18/18 18:00 03/18/18 20:00 03/18/18 21:15 Temperature 98.7 F Pulse Rate 67 104 H Respiratory Rate 23 Blood Pressure 194/93 H Pulse Oximetry 94 L 94 L 03/18/18 22:00 03/18/18 23:41 03/18/18 23:51 Temperature Pulse Rate 94 H 99 H 103 H Respiratory Rate 22 Blood Pressure Pulse Oximetry 03/18/18 23:52 03/19/18 01:30 03/19/18 01:31 Temperature 97.8 F Pulse Rate 104 H 110 H 107 H Respiratory Rate 23 27 H 29 H Blood Pressure 192/102 H 211/96 H 206/96 H Pulse Oximetry 94 L 92 L 91 L 03/19/18 02:00 03/19/18 02:10 03/19/18 02:27 Temperature Pulse Rate 103 H 90 97 H Respiratory Rate 21 23 26 H Blood Pressure 207/93 H 158/72 H 196/87 H Pulse Oximetry 94 L 92 L 91 L 03/19/18 02:30 03/19/18 03:00 03/19/18 03:01 Temperature Pulse Rate 106 H 104 H 99 H Respiratory Rate 29 H 29 H 28 H Blood Pressure 193/82 H 173/77 H Pulse Oximetry 92 L 91 L 91 L 03/19/18 03:30 03/19/18 03:58 03/19/18 04:00 Temperature 97.9 F Pulse Rate 98 H 100 H Respiratory Rate 27 H 25 H Blood Pressure 185/90 H 191/87 H Pulse Oximetry 90 L 94 L 92 L 03/19/18 04:19 03/19/18 04:30 03/19/18 05:00 Temperature Pulse Rate 99 H 102 H 106 H Respiratory Rate 24 25 H 29 H Blood Pressure 193/88 H 212/91 H Pulse Oximetry 92 L 92 L 03/19/18 05:04 03/19/18 05:31 03/19/18 06:00 Temperature Pulse Rate 104 H 104 H 102 H Respiratory Rate 24 29 H 25 H Blood Pressure 213/91 H 195/91 H 191/86 H Pulse Oximetry 92 L 89 L 94 L 03/19/18 06:31 03/19/18 07:00 03/19/18 07:19 Temperature Pulse Rate 100 H 104 H 103 H Respiratory Rate 21 22 23 Blood Pressure 201/90 H 202/89 H 205/91 H Pulse Oximetry 95 94 L 95 03/19/18 07:30 03/19/18 07:52 03/19/18 08:00 Temperature Pulse Rate 105 H 105 H Respiratory Rate 25 H 28 H Blood Pressure 200/98 H Pulse Oximetry 94 L 95 94 L 03/19/18 08:01 03/19/18 08:08 03/19/18 08:30 Temperature 98.0 F Pulse Rate 104 H 110 H 108 H Respiratory Rate 28 H 35 H 27 H Blood Pressure 195/86 H 187/73 H 187/75 H Pulse Oximetry 93 L 90 L 93 L 03/19/18 09:00 03/19/18 09:30 03/19/18 09:34 Temperature Pulse Rate 104 H 107 H 109 H Respiratory Rate 18 26 H 22 Blood Pressure 183/82 H 178/84 H 177/82 H Pulse Oximetry 94 L 95 94 L Intake & Output 03/18/18 03/19/18 03/19/18 18:59 06:59 18:59 Intake Total 550 / 550 2028 / 2028 Output Total 325 / 325 200 / 200 Balance 225 / 225 1829 / 1829 Weight 114 kg Intake: IV 250 / 250 1189 / 1189 D5W Inj 1,000 ML @ 42 mls/hr IV 989 / 989 .CONT .[id number] VIJAYA Rx#:[id number] Magnesium Sulfate 1 gm/D5W 100 100 / 100 ml Premix 100 ML @ 100 mls/hr IV.SIG Q1H VIJAYA Rx#:[id number] Zosyn 2.25 GM Premix 50 ML @ 50 / 50 100 / 100 100 mls/hr IV.SIG Q6H VIJAYA Rx#: [id number] KCl 20 mEq Premix Inj 20 meq In 100 / 100 100 / 100 100 ml @ 50 mls/hr IV.SIG Q2H VIJAYA Rx#:[id number] Oral 300 / 300 720 / 720 Oral Supplement 120 / 120 Output: Urine 325 / 325 Emesis 150 / 150 Stool Amount (Stoma) 50 / 50 Pre-Hospital: Left Lower 50 / 50 Abdomen Other: # Voids 5 # Incontinent Voids 2 4 Date of Last Bowel Movement 03/17/18 03/18/18 03/18/18 # Emeses 2 Narrative: Awake alert and oriented 3 talkative and cooperative very hard of hearing GENERAL: Not in respiratory distress. SKIN: Warm and dry. HEAD: Normocephalic. EYES: No scleral icterus. No injection or drainage. NECK: Supple, trachea midline. No JVD or lymphadenopathy. CARDIOVASCULAR: Regular rate and rhythm without murmurs, gallops, or rubs. RESPIRATORY: Breath sounds equal bilaterally. No accessory muscle use. Few scattered rhonchi GASTROINTESTINAL: Abdomen soft, non-tender, nondistended. Obese MUSCULOSKELETAL: No cyanosis, or +1 lower extremity edema Insight and judgment is limited Mood and behavior is somewhat appropriate - Urinary Catheter Management Indwelling Urethral Catheter Cath placed during this visit: no Urethral indwelling: Yes Reason for continuing: Hourly intake/output Results - Labs CBC & Chem 7: 03/18/18 05:37 03/19/18 03:33 Laboratory Results - last 24 hr 03/18/18 03/18/18 03/19/18 05:37 20:25 03:33 Sodium 143 Potassium 3.5 Chloride 105 Carbon Dioxide 29.9 Anion Gap 8 BUN 45 H Creatinine 2.24 H Estimated GFR 28 L POC Glucose 116 H Random Glucose 141 H Calcium 8.9 Phosphorus 3.1 Magnesium 2.1 Albumin 3.0 L - Imaging Chest X-Ray 03/11/18 20:06 CONCLUSION: ET tube in a low position 1.7 cm above the kenji. Increased density at the lateral left base representing some mild consolidation , atelectasis and/or effusion. Left internal jugular central line and NG tube in good position. Abdomen/Pelvis CT 03/12/18 22:23 CONCLUSION: 1. Gallstones. 2. Minimal nonspecific free peritoneal fluid. 3. Mild infiltrate in the lung bases. Head CT 03/12/18 22:57 CONCLUSION: No acute intracranial findings. Chest X-Ray 03/13/18 00:00 CONCLUSION: No appreciable change. Assessment and Plan - Plan Assessment: 82yM with resolving severe multiorgan failure. now with afib RVR likely from electrolyte disturbances and volume overload. appreciate palliative care consultation. clinically improving. could still use some diuresis and needs aggressive physical therapy. Atrial fibrillation with rapid ventricular response -digoxin 0.5mg iv x 1 - 90meq kcl - 2gm mgso4 - aggressive electrolyte replacement - lasix 40mg iv x 1 - metoprolol 10mg iv x 1 - start diltiazem 60mg po q6h - hospital shortage of iv diltiazem -Telemetry Medications have been adjusted again Hypertension suspected patient's best blood pressures 160 at least probably closer to 180 for him Acute metabolic encephalopathy - resolved. - goal RASS 0 - frequent neuro checks Acute Hypoxic Respiratory failure- resolved. - nc o2 for goal spo2 > 90% - aggressive pulmonary toilet - OOB with PT -DuoNeb scheduled and as needed COPD -No exacerbation -DuoNeb scheduled and as needed Scattered wheezes Severe metabolic acidosis- resolved. Lactic Acidosis- resolved. -Non-anion gap -CT abdomen and pelvis unremarkable Shock- resolved -Telemetry -2D echo: EF 35%. -Series of troponins and EKGs to rule out ACS -Stress dose steroids: continue weaning. Acute kidney injury superimposed on CKD, unknown stage- improving. -Strict I's and O's -Monitor creatinine and electrolytes -nephrology consult. Acute protein calorie malnutrition- moderate Colon cancer s/p resection - advance diet as tolerated. needs OOB with PT. Hypokalemia will replace DVT GI prophylaxis -Teds SCDs -Heparin -Pepcid Code Status: Full code Discussed Condition With: Discussed with patient and professor of education Planning: Monitor his renal functions and LFTs in a.m. labs Replace potassium Procedures - Arterial Line Size (Gauge): 18
[2018-03-19] MEDS: Chlorhexidine 0.12% Oral Kit 15 ML UDC OROPHARYNG SCH ×3 (10:45→19:57)
--- NOTE | 2018-03-19 15:36 | ECG ---
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 The RBBB has resolved and QRS is more narrow with this rapid rate. ABNORMAL ECG PREVIOUS TRACING : 03/12/2018 07.37 DOCTOR: Tod Case Interpretating Date/Time 03/19/2018 15:35:48
[2018-03-19] MEDS ORDERED: Naloxone Inj 0.4 MG/ML Vial IV.PUSH PRN ×2 (18:31→18:32)
[2018-03-19] MEDS ORDERED: Morphine Sulfate Inj 2 MG/ML Vial IV.PUSH PRN (18:31)
[2018-03-19] MEDS ORDERED: Morphine Inj 4 MG/ML Vial IV.PUSH PRN (18:32)
[2018-03-19] MEDS: Lidocaine 5% Patch T-DERMAL SCH (19:56)
[2018-03-20] MEDS: dilTIAZem 60 MG Tablet PO SCH ×2 (02:12→08:27)
[2018-03-20] MEDS: hydrALAZINE HCl Inj 20 MG/ML Vial IV.PUSH PRN ×2 (02:15→06:32)
[2018-03-20] MEDS: Heparin - SQ 10,000 UNITS/ML Vial SQ SCH ×3 (05:04→21:01)
[2018-03-20] MEDS: Senna/Docusate Sodium 8.6/50 MG Tablet PO SCH ×2 (08:27→21:01)
[2018-03-20] MEDS: Metoprolol Inj 5 MG/5 ML Vial IV.PUSH PRN (08:27)
[2018-03-20] MEDS: Lidocaine 5% Patch T-DERMAL SCH (08:27)
[2018-03-20] MEDS: amLODIPine 5 MG Tablet PO SCH ×2 (08:27→09:12)
[2018-03-20] MEDS ORDERED: Labetalol HCl Inj 100 MG/20 ML Vial ONE (08:47)
[2018-03-20] MEDS ORDERED: Labetalol HCl Inj 100 MG/20 ML Vial IV.PUSH PRN (09:00)
[2018-03-20] MEDS: Chlorhexidine 0.12% Oral Kit 15 ML UDC OROPHARYNG SCH ×2 (09:09→21:00)
[2018-03-20] MEDS: Metoprolol Tartrate 50 MG Tablet PO SCH ×2 (09:09→21:01)
[2018-03-20] MEDS ORDERED: dilTIAZem 60 MG Tablet PO PRN (09:34)
--- NOTE | 2018-03-20 09:45 | P.PNIM ---
Subjective Interval history: 03/11: 82-year-old male presents with chief complaint of not feeling well, times today. On EMS arrival they found him pale diaphoretic tachycardic and critically ill. The patient has a history of colon cancer. According to nursing staff his family had some concern that he may intentionally took too many blood pressure medication. He was emergently intubated by ED attending for an airway protection due to altered mental status as well as severe hemodynamic instability. The patient is unable to give any additional history. No family available in the emergency department. 03/12: Remains sedated, orally intubated on mechanical ventilation. Hypotensive on pressors. Borderline urine output. 03/13: Sedated, arousable, not following commands. Remains orally intubated on mechanical ventilation. Urine output borderline. Off levophed. 03/14: remains intubated and deeply sedated on versed. discussed with RN: plan to wean sedation for appropriate RASS -2 goal. off vasopressors. 03/15: modest diuresis. still very encephalopathic, and when pressure support is weaned, becomes quite tachypneic with respiratory distress. 03/16: excellent diuresis. net -5L/24h. awake and alert this morning. passed SBT. will wean to extubate. Cr also continues to improve. 03/17: continues to have adequate diuresis. extubated yesterday. Cr improving. complains of chest pain with deep inspiration and cough. denies SOB. hard of hearing. 03/18: went into afib RVR around noon. K low at 3.4. less auto-diuresis today, and although edema is markedly improved, likely still some element of volume overload. more awake and alert and not confused today. hard of hearing and I asked his daughter to bring in his hearing aids. given metoprolol 10mg iv, digoxin 0.5mg iv x 1, 90 meq kcl, and 2gm mgso4 with some improvement in rate. started on po diltiazem. hospital out of iv diltiazem. patient is asymptomatic and denies chest pain, sob. ros unremarkable. 03-19 TRANSFERRED TO OUR SERVICE TODAY HAD ISSUES WITH BLOOD PRESSURE MEDS ADJUSTED BY DR [facility] WILL TRY TO KEEP SBP BETWEEN 160 AND 180 SINCE HE PROBABLY HAS NEVER BEEN WELL CONTROLLED AM LABS PT AND OT DW RN AND PT Had issues with A. fib Seen by nephrology We will replace his potassium orally 03-20 RESTART METOPROLOL 50MG PO BID RESTART CARDIZEM 240MG PO DAILY SWITCH PO CARDIZEM 60MG TO PRN LABS PENDING DW RN AND PT CHANGE TO XOPENEX IF ABLE INSTEAD OF ALBUTEROL DUE TO HEART RATE AM LABS PT AND OT SWITCH TO XOPENEX Physical Exam Vital signs: Vital Signs 03/19/18 10:00 03/19/18 10:30 03/19/18 11:00 Temperature Pulse Rate 96 H 91 H 101 H Respiratory Rate 18 16 23 Blood Pressure 167/76 H 162/74 H 151/99 H Pulse Oximetry 94 L 97 94 L 03/19/18 11:30 03/19/18 12:00 03/19/18 12:30 Temperature Pulse Rate 91 H 102 H 93 H Respiratory Rate 21 22 18 Blood Pressure 180/81 H 180/81 H 180/84 H Pulse Oximetry 94 L 95 96 03/19/18 13:00 03/19/18 13:01 03/19/18 13:30 Temperature Pulse Rate 99 H 146 H 88 Respiratory Rate 27 H 25 H 23 Blood Pressure 178/66 H 171/81 H Pulse Oximetry 91 L 91 L 94 L 03/19/18 14:00 03/19/18 14:31 03/19/18 15:00 Temperature Pulse Rate 85 93 H 84 Respiratory Rate 19 23 20 Blood Pressure 183/81 H 150/80 H 195/89 H Pulse Oximetry 96 94 L 95 03/19/18 15:30 03/19/18 16:00 03/19/18 16:30 Temperature 98.2 F Pulse Rate 85 92 H 88 Respiratory Rate 18 25 H 20 Blood Pressure 196/90 H 197/91 H 199/90 H Pulse Oximetry 95 94 L 94 L 03/19/18 17:00 03/19/18 17:30 03/19/18 18:00 Temperature Pulse Rate 94 H 101 H 95 H Respiratory Rate 22 20 17 Blood Pressure 183/83 H 183/80 H 164/74 H Pulse Oximetry 94 L 94 L 94 L 03/19/18 20:00 03/19/18 21:26 03/19/18 22:00 Temperature 98.4 F Pulse Rate 87 88 92 H Respiratory Rate 18 16 Blood Pressure 176/84 H Pulse Oximetry 95 95 03/20/18 00:00 03/20/18 00:31 03/20/18 04:00 Temperature 98.2 F Pulse Rate 102 H 101 H 101 H Respiratory Rate 18 18 Blood Pressure 167/65 H 147/67 H Pulse Oximetry 94 L 94 L 03/20/18 04:32 03/20/18 05:58 03/20/18 07:57 Temperature Pulse Rate 104 H 100 H 106 H Respiratory Rate 16 18 Blood Pressure Pulse Oximetry 94 L 03/20/18 08:00 Temperature Pulse Rate Respiratory Rate 18 Blood Pressure Pulse Oximetry Intake & Output 03/19/18 03/20/18 03/20/18 18:59 06:59 18:59 Intake Total 1441 / 1441 480 / 480 Output Total Balance 1416 / 1416 455 / 455 Weight 114 kg Intake: IV 441 / 441 D5W Inj 1,000 ML @ 42 mls/hr IV 441 / 441 .CONT .[id number] VIJAYA Rx#:[id number] Oral 1000 / 1000 480 / 480 Output: Stool Amount (Stoma) Pre-Hospital: Left Lower Abdomen Right Lower Abdomen Other: # Incontinent Voids 4 3 Date of Last Bowel Movement 03/18/18 03/19/18 03/19/18 Narrative: Awake alert and oriented 3 talkative and cooperative very hard of hearing GENERAL: Not in respiratory distress. SKIN: Warm and dry. HEAD: Normocephalic. EYES: No scleral icterus. No injection or drainage. NECK: Supple, trachea midline. No JVD or lymphadenopathy. CARDIOVASCULAR: IRRegular rate and rhythm without murmurs, gallops, or rubs. RESPIRATORY: Breath sounds equal bilaterally. No accessory muscle use. Few scattered rhonchi GASTROINTESTINAL: Abdomen soft, non-tender, nondistended. Obese MUSCULOSKELETAL: No cyanosis, or +2 lower extremity edema Insight and judgment is limited Mood and behavior is somewhat appropriate - Urinary Catheter Management Indwelling Urethral Catheter Cath placed during this visit: no Urethral indwelling: Yes Reason for continuing: Hourly intake/output Results - Labs CBC & Chem 7: 03/18/18 05:37 03/19/18 03:33 Laboratory Results - last 24 hr 03/19/18 20:14 POC Glucose 171 H Assessment and Plan - Plan Assessment: 82yM with resolving severe multiorgan failure. now with afib RVR likely from electrolyte disturbances and volume overload. appreciate palliative care consultation. clinically improving. could still use some diuresis and needs aggressive physical therapy. Atrial fibrillation with rapid ventricular response -digoxin 0.5mg iv x 1 - 90meq kcl - 2gm mgso4 - aggressive electrolyte replacement - lasix 40mg iv x 1 - metoprolol 10mg iv x 1 - start diltiazem 60mg po q6h - hospital shortage of iv diltiazem -Telemetry Medications have been adjusted again Hypertension suspected patient's best blood pressures 160 at least probably closer to 180 for him Acute metabolic encephalopathy - resolved. - goal RASS 0 - frequent neuro checks Acute Hypoxic Respiratory failure- resolved. - nc o2 for goal spo2 > 90% - aggressive pulmonary toilet - OOB with PT -DuoNeb scheduled and as needed COPD -No exacerbation -DuoNeb scheduled and as needed Scattered wheezes Severe metabolic acidosis- resolved. Lactic Acidosis- resolved. -Non-anion gap -CT abdomen and pelvis unremarkable Shock- resolved -Telemetry -2D echo: EF 35%. -Series of troponins and EKGs to rule out ACS -Stress dose steroids: continue weaning. Acute kidney injury superimposed on CKD, unknown stage- improving. -Strict I's and O's -Monitor creatinine and electrolytes -nephrology consult. Acute protein calorie malnutrition- moderate Colon cancer s/p resection - advance diet as tolerated. needs OOB with PT. Hypokalemia will replace DVT GI prophylaxis -Teds SCDs -Heparin -Pepcid Code Status: FULL CODE Discussed Condition With: RN AND PT Discharge Planning: PENDING BREATHING IMPROVEMENT AND CONTROL OF HEART RATE Procedures - Arterial Line Size (Gauge): 18
[2018-03-20] MEDS: Verapamil SR 240 MG Tablet PO SCH (11:34)
[2018-03-20 11:38] LABS: Eos # (Auto) 0.1 th/mm3 (0.0-0.4); Eos % (Auto) 0.3 % (0.0-4.0); Hematocrit 44.1 % (39.0-51.0); Hemoglobin 14.1 gm/dL (13.0-17.0); Lymph # (Auto) 5.4 th/mm3 (1.0-4.8); Lymph % (Auto) 24.8 % (9.0-44.0); Mean Corpuscular HGB Conc 31.9 % (32.0-36.0); Mean Corpuscular Hemoglobin 20.5 pg (27.0-34.0); Mean Corpuscular Volume 64.4 fL (80.0-100.0); Mean Platelet Volume 8.9 fL (7.0-11.0); Mono # (Auto) 1.6 th/mm3 (0.0-0.9); Mono % (Auto) 7.5 % (0.0-8.0); Neut # (Auto) 14.8 th/mm3 (1.8-7.7); Neut % (Auto) 67.4 % (16.0-70.0); Platelet Count 161 th/mm3 (150-450); Red Blood Count 6.86 mil/mm3 (4.50-5.90); White Blood Count 21.9 th/mm3 (4.0-11.0)
[2018-03-20 12:04] LABS: Alanine Aminotransferase 79 U/L (12-78); Albumin 2.5 g/dL (3.4-5.0); Anion Gap 8 meq/L (5-15); Blood Urea Nitrogen 63 mg/dL (7-18); Calcium 8.7 mg/dL (8.5-10.1); Carbon Dioxide 27.8 meq/L (21.0-32.0); Chloride 101 meq/L (98-107); Glomerular Filtration Rate 14 mL/min (>89); Glucose,Random 147 mg/dL (74-106); Sodium 137 meq/L (136-145)
[2018-03-20 12:16] LABS: Alkaline Phosphatase 78 U/L (45-117); Free T4 (Free Thyroxine) 1.77 ng/dL (0.76-1.46); Phosphorus 4.6 mg/dL (2.5-4.9); Thyroid Stimulating Hormone 0.391 uIU/mL (0.358-3.740); Total Protein 6.8 g/dL (6.4-8.2)
[2018-03-20 12:36] LABS: Aspartate Aminotransferase 52 U/L (15-37); Magnesium 2.4 mg/dL (1.5-2.5); Potassium 5.9 meq/L (3.5-5.1)
[2018-03-20 12:41] LABS: Eosinophils 1 % (0-4); Lymphocytes 23 % (9-44); Monocytes 5 % (0-8); Ovalocytes 1+; Platelet Estimate Normal (Normal); Platelet Morphology Normal (Normal)
[2018-03-20] MEDS: Dextrose 5% in Water Inj 1,000 ML IV.CONT SCH ×2 (14:39→14:40)
[2018-03-20] MEDS: RESP: Levalbuterol 1.25 MG/3 ML Neb (SCH) NEB ×2 (15:51→21:35)
[2018-03-20 16:10] LABS: Hemoglobin A1c 6.4 % (4.3-6.0)
[2018-03-20 16:37] LABS: Alanine Aminotransferase 74 U/L (12-78); Albumin 2.7 g/dL (3.4-5.0); Alkaline Phosphatase 83 U/L (45-117); Anion Gap 6 meq/L (5-15); Aspartate Aminotransferase 22 U/L (15-37); Blood Urea Nitrogen 68 mg/dL (7-18); Calcium 8.9 mg/dL (8.5-10.1); Carbon Dioxide 29.8 meq/L (21.0-32.0); Chloride 100 meq/L (98-107); Glomerular Filtration Rate 13 mL/min (>89); Glucose,Random 147 mg/dL (74-106); Potassium 4.3 meq/L (3.5-5.1); Sodium 136 meq/L (136-145); Total Protein 6.6 g/dL (6.4-8.2)
[2018-03-21 04:52] LABS: Albumin 2.5 g/dL (3.4-5.0); Anion Gap 10 meq/L (5-15); Aspartate Aminotransferase 21 U/L (15-37); Blood Urea Nitrogen 68 mg/dL (7-18); Calcium 8.6 mg/dL (8.5-10.1); Carbon Dioxide 26.6 meq/L (21.0-32.0); Chloride 99 meq/L (98-107); Glomerular Filtration Rate 15 mL/min (>89); Glucose,Random 109 mg/dL (74-106); Magnesium 2.4 mg/dL (1.5-2.5); Potassium 4.1 meq/L (3.5-5.1); Sodium 136 meq/L (136-145)
[2018-03-21 04:55] LABS: Alanine Aminotransferase 60 U/L (12-78); Alkaline Phosphatase 75 U/L (45-117); Phosphorus 4.6 mg/dL (2.5-4.9); Total Protein 6.4 g/dL (6.4-8.2)
[2018-03-21 05:03] LABS: Eos # (Auto) 0.3 th/mm3 (0.0-0.4); Eos % (Auto) 1.3 % (0.0-4.0); Hematocrit 42.9 % (39.0-51.0); Hemoglobin 13.7 gm/dL (13.0-17.0); Lymph # (Auto) 5.8 th/mm3 (1.0-4.8); Lymph % (Auto) 30.3 % (9.0-44.0); Mean Corpuscular HGB Conc 32.1 % (32.0-36.0); Mean Corpuscular Hemoglobin 20.5 pg (27.0-34.0); Mean Corpuscular Volume 64.1 fL (80.0-100.0); Mean Platelet Volume 8.8 fL (7.0-11.0); Mono # (Auto) 1.6 th/mm3 (0.0-0.9); Mono % (Auto) 8.6 % (0.0-8.0); Neut # (Auto) 11.4 th/mm3 (1.8-7.7); Neut % (Auto) 59.8 % (16.0-70.0); Platelet Count 156 th/mm3 (150-450); Red Blood Count 6.69 mil/mm3 (4.50-5.90); Red Cell Distribution Width 20.2 % (11.6-17.2)
[2018-03-21] MEDS: Heparin - SQ 10,000 UNITS/ML Vial SQ SCH ×3 (05:38→21:35)
[2018-03-21 07:51] LABS: Lymphocytes 41 % (9-44); Monocytes 6 % (0-8); Ovalocytes 1+; Platelet Estimate Normal (Normal)
[2018-03-21] MEDS: RESP: Levalbuterol 1.25 MG/3 ML Neb (SCH) NEB ×3 (08:38→21:24)
[2018-03-21] MEDS: Metoprolol Tartrate 50 MG Tablet PO SCH ×2 (08:48→21:36)
[2018-03-21] MEDS: Chlorhexidine 0.12% Oral Kit 15 ML UDC OROPHARYNG SCH ×2 (08:48→20:00)
[2018-03-21] MEDS: Senna/Docusate Sodium 8.6/50 MG Tablet PO SCH ×2 (08:48→21:36)
[2018-03-21] MEDS: Verapamil SR 240 MG Tablet PO SCH (08:48)
[2018-03-21] MEDS: amLODIPine 5 MG Tablet PO SCH (08:48)
[2018-03-21] MEDS: Lidocaine 5% Patch T-DERMAL SCH (08:48)
--- NOTE | 2018-03-21 12:23 | P.PNNP ---
Subjective Interval history: Events noted over past few days. A fib better controlled. The patient says that he is feeling OK. RN states he has been getting straight cath every 6h for the past few days and significant urine output. <RadhaDeb R - Last Filed: 03/21/18 12:17> Physical Exam Vital signs: Vital Signs 03/20/18 12:30 03/20/18 12:45 03/20/18 13:00 Temperature Pulse Rate 68 69 76 Respiratory Rate 19 18 21 Blood Pressure 141/67 H 130/61 Pulse Oximetry 93 L 93 L 92 L 03/20/18 13:01 03/20/18 13:15 03/20/18 13:30 Temperature Pulse Rate 74 68 67 Respiratory Rate 21 20 19 Blood Pressure 142/67 H 143/69 H 141/66 H Pulse Oximetry 92 L 94 L 94 L 03/20/18 13:45 03/20/18 14:00 03/20/18 14:15 Temperature Pulse Rate 67 68 68 Respiratory Rate 18 16 17 Blood Pressure 140/67 145/67 H 148/68 H Pulse Oximetry 94 L 95 96 03/20/18 14:30 03/20/18 14:45 03/20/18 15:00 Temperature Pulse Rate 70 69 68 Respiratory Rate 21 18 16 Blood Pressure 152/72 H 152/72 H 152/72 H Pulse Oximetry 94 L 93 L 95 03/20/18 15:15 03/20/18 15:30 03/20/18 15:45 Temperature Pulse Rate 68 69 70 Respiratory Rate 17 20 19 Blood Pressure 153/66 H 156/76 H 153/69 H Pulse Oximetry 95 95 95 03/20/18 16:00 03/20/18 16:15 03/20/18 16:30 Temperature 98.6 F Pulse Rate 68 70 69 Respiratory Rate 21 21 17 Blood Pressure 164/76 H 165/76 H 164/75 H Pulse Oximetry 97 95 95 03/20/18 16:45 03/20/18 17:00 03/20/18 17:30 Temperature Pulse Rate 72 72 74 Respiratory Rate 20 17 20 Blood Pressure 163/74 H 165/74 H 165/74 H Pulse Oximetry 94 L 93 L 95 03/20/18 18:00 03/20/18 18:01 03/20/18 18:31 Temperature Pulse Rate 74 72 76 Respiratory Rate 21 21 23 Blood Pressure 172/75 H 174/74 H Pulse Oximetry 93 L 93 L 93 L 03/20/18 19:00 03/20/18 19:01 03/20/18 20:00 Temperature 97.9 F Pulse Rate 79 78 71 Respiratory Rate 17 16 16 Blood Pressure 159/67 H 144/64 H Pulse Oximetry 92 L 92 L 94 L 03/20/18 21:38 03/20/18 22:00 03/21/18 00:00 Temperature 98.7 F Pulse Rate 61 58 L 61 Respiratory Rate 16 14 Blood Pressure 146/66 H Pulse Oximetry 96 96 03/21/18 02:00 03/21/18 03:41 03/21/18 04:00 Temperature 98.7 F Pulse Rate 67 65 85 Respiratory Rate 14 21 Blood Pressure 182/80 H Pulse Oximetry 96 03/21/18 06:00 03/21/18 08:00 03/21/18 08:40 Temperature 98.9 F Pulse Rate 90 67 77 Respiratory Rate 17 Blood Pressure 110/53 L Pulse Oximetry 94 L 96 03/21/18 10:00 Temperature Pulse Rate 67 Respiratory Rate Blood Pressure Pulse Oximetry Intake & Output 03/20/18 03/21/18 03/21/18 18:59 06:59 18:59 Intake Total 1600 / 1600 1600 / 1600 Output Total 1100 / 1100 0 / 0 Balance 500 / 500 1600 / 1600 Weight 115 kg Intake: IV 1350 / 1350 D5W Inj 1,000 ML @ 42 mls/hr IV 1350 / 1350 .CONT .[id number] [facility] Rx#:[id number] Oral 250 / 250 300 / 300 Bladder Irrigation Fluid - 1300 / 1300 Amount Retained Straight 1300 / 1300 Output: Stool 0 / 0 Urine Amount (Catheter) 1100 / 1100 Straight 1100 / 1100 Other: Date of Last Bowel Movement 03/19/18 03/18/18 03/18/18 # Bowel Movements 0 # Incontinent Bowel Movements 0 - Constitutional no acute distress - Routine Neck Exam Present: supple - Routine Respiratory Exam Present: distant breath sounds, diminished air movement - Routine Cardiovascular Exam Present: S1, S2, irregularly irregular - Routine Abdominal Exam Present: soft - Routine Extremities Exam Present: edema (significant edema present in extremities as well as flanks.) - Routine Neurological Exam Present: alert - Urinary Catheter Management Indwelling Urethral Catheter Cath placed during this visit: no Urethral indwelling: Yes Reason for continuing: Hourly intake/output Straight Cath placed during this visit: no <Deb Garcia - Last Filed: 03/21/18 12:17> Vital signs: Vital Signs 03/21/18 18:00 03/21/18 20:00 03/21/18 21:26 Temperature 98.7 F Pulse Rate 70 89 86 Respiratory Rate 24 20 Blood Pressure 150/65 H Pulse Oximetry 96 95 03/21/18 22:00 03/22/18 00:00 03/22/18 02:00 Temperature 98.9 F Pulse Rate 89 92 H 88 Respiratory Rate 23 Blood Pressure 153/72 H Pulse Oximetry 96 03/22/18 03:16 03/22/18 04:00 03/22/18 06:00 Temperature 98.9 F Pulse Rate 89 79 88 Respiratory Rate 28 H 17 Blood Pressure 124/57 L Pulse Oximetry 93 L 03/22/18 07:40 03/22/18 08:00 03/22/18 10:00 Temperature 98.7 F Pulse Rate 95 H 63 63 Respiratory Rate 24 15 Blood Pressure 114/53 L Pulse Oximetry 95 95 03/22/18 12:00 03/22/18 14:00 03/22/18 15:54 Temperature 98 F Pulse Rate 61 65 69 Respiratory Rate 15 18 Blood Pressure 135/58 L Pulse Oximetry 95 Intake & Output 03/21/18 03/22/18 03/22/18 18:59 06:59 18:59 Intake Total 1500 / 1500 240 / 240 Output Total 1550 / 1550 205 / 0 Balance -50 / -50 -1810 / -1810 Weight 114 kg Intake: IV 1000 / 1000 D5W Inj 1,000 ML @ 42 mls/hr IV 1000 / 1000 .CONT .[id number] [facility] Rx#:[id number] Oral 500 / 500 240 / 240 Output: Emesis 1000 / 1000 Urine Amount (Catheter) 1550 / 1550 1000 / 1000 Indwelling Urethral Catheter 1550 / 1550 1000 / 1000 Stool Amount (Stoma) 50 / 50 Right Lower Abdomen 50 / 50 Other: Date of Last Bowel Movement 03/18/18 03/22/18 03/22/18 # Emeses 1 - Urinary Catheter Management Indwelling Urethral Catheter Cath placed during this visit: no Straight Cath placed during this visit: no <Hesham Sims - Last Filed: 03/22/18 16:05> Assessment and Plan - Assessment (1) Acute renal insufficiency Code(s): N28.9 - Disorder of kidney and ureter, unspecified Status: Acute Plan: Renal functions improved today, but decline in past few days likely 2/2 to cardiac decompensation related to A. fib RVR. May have some degree of obstructive uropathy given amount of urine with straight cath. Barker ordered. Flomax ordered. IV Lasix to help with volume status. Continue to monitor I&Os closely. Repeat labs in the AM. Medications should be adjusted for the patient's estimated GFR if clinically indicated. Avoid agents with significant potential for nephrotoxicity possible including NSAIDs for analgesia, iodine contrast agents. Gadolinium is contraindicated if the GFR is below 30. (2) Hypertension Code(s): I10 - Essential (primary) hypertension Status: Acute Plan: BP improved today. (3) Hypokalemia Code(s): E87.6 - Hypokalemia Status: Acute Plan: Resolved. <Deb Garcia - Last Filed: 03/21/18 12:17> - Assessment (1) Acute renal insufficiency Code(s): N28.9 - Disorder of kidney and ureter, unspecified Status: Acute (2) Hypertension Code(s): I10 - Essential (primary) hypertension Status: Acute (3) Hypokalemia Code(s): E87.6 - Hypokalemia Status: Acute - Attending Attestation The exam, history, and the medical decision-making described in the above note were completed with the assistance of the PARhonda. I reviewed and agree with the findings presented. I attest that I had a [id number] encounter with the patient on the same day, and personally performed and documented my assessment and findings in the medical record. <Hesham Sims - Last Filed: 03/22/18 16:05> Procedures - Arterial Line Size (Gauge): 18 <Deb Garcia - Last Filed: 03/21/18 12:17>
[2018-03-21] MEDS: Dextrose 5% in Water Inj 1,000 ML IV.CONT SCH (13:12)
--- NOTE | 2018-03-21 14:30 | P.PN ---
Subjective Interval history: awake and alert, no complains of chest pain or shortness of breath telemetry- in SR patient unable to void- straight cath several times- last one early this am 1100 cc out fajardo placed this am Physical Exam Vital signs: Vital Signs 03/20/18 14:30 03/20/18 14:45 03/20/18 15:00 Temperature Pulse Rate 70 69 68 Respiratory Rate 21 18 16 Blood Pressure 152/72 H 152/72 H 152/72 H Pulse Oximetry 94 L 93 L 95 03/20/18 15:15 03/20/18 15:30 03/20/18 15:45 Temperature Pulse Rate 68 69 70 Respiratory Rate 17 20 19 Blood Pressure 153/66 H 156/76 H 153/69 H Pulse Oximetry 95 95 95 03/20/18 16:00 03/20/18 16:15 03/20/18 16:30 Temperature 98.6 F Pulse Rate 68 70 69 Respiratory Rate 21 21 17 Blood Pressure 164/76 H 165/76 H 164/75 H Pulse Oximetry 97 95 95 03/20/18 16:45 03/20/18 17:00 03/20/18 17:30 Temperature Pulse Rate 72 72 74 Respiratory Rate 20 17 20 Blood Pressure 163/74 H 165/74 H 165/74 H Pulse Oximetry 94 L 93 L 95 03/20/18 18:00 03/20/18 18:01 03/20/18 18:31 Temperature Pulse Rate 74 72 76 Respiratory Rate 21 21 23 Blood Pressure 172/75 H 174/74 H Pulse Oximetry 93 L 93 L 93 L 03/20/18 19:00 03/20/18 19:01 03/20/18 20:00 Temperature 97.9 F Pulse Rate 79 78 71 Respiratory Rate 17 16 16 Blood Pressure 159/67 H 144/64 H Pulse Oximetry 92 L 92 L 94 L 03/20/18 21:38 03/20/18 22:00 03/21/18 00:00 Temperature 98.7 F Pulse Rate 61 58 L 61 Respiratory Rate 16 14 Blood Pressure 146/66 H Pulse Oximetry 96 96 03/21/18 02:00 03/21/18 03:41 03/21/18 04:00 Temperature 98.7 F Pulse Rate 67 65 85 Respiratory Rate 14 21 Blood Pressure 182/80 H Pulse Oximetry 96 03/21/18 06:00 03/21/18 08:00 03/21/18 08:40 Temperature 98.9 F Pulse Rate 90 67 77 Respiratory Rate 17 Blood Pressure 110/53 L Pulse Oximetry 94 L 96 03/21/18 10:00 Temperature Pulse Rate 67 Respiratory Rate Blood Pressure Pulse Oximetry Intake & Output 03/20/18 03/21/18 03/21/18 18:59 06:59 18:59 Intake Total 1600 / 1600 1600 / 1600 1000 / 1000 Output Total 1100 / 1100 0 / 0 Balance 500 / 500 1600 / 1600 1000 / 1000 Weight 115 kg Intake: IV 1350 / 1350 1000 / 1000 D5W Inj 1,000 ML @ 42 mls/hr IV 1350 / 1350 1000 / 1000 .CONT .[id number] Rx#:[id number] Oral 250 / 250 300 / 300 Bladder Irrigation Fluid - 1300 / 1300 Amount Retained Straight 1300 / 1300 Output: Stool 0 / 0 Urine Amount (Catheter) 1100 / 1100 Straight 1100 / 1100 Other: Date of Last Bowel Movement 03/19/18 03/18/18 03/18/18 # Bowel Movements 0 # Incontinent Bowel Movements 0 Narrative: Awake alert and oriented 3 , very intractive, baseline hard of hearing GENERAL: Not in respiratory distress. SKIN: Warm and dry. HEAD: Normocephalic. EYES: No scleral icterus. No injection or drainage. NECK: Supple, trachea midline. No JVD or lymphadenopathy. CARDIOVASCULAR: regular rhythm RESPIRATORY: Breath sounds equal bilaterally. No accessory muscle use. no wheezes, no rhonchis GASTROINTESTINAL: Abdomen soft, non-tender, nondistended. Obese MUSCULOSKELETAL: No cyanosis, LE ++ edema motor- moves all extremities equally - Urinary Catheter Management Indwelling Urethral Catheter Cath placed during this visit: no Urethral indwelling: Yes Reason for continuing: Hourly intake/output Straight Cath placed during this visit: no Results - Labs CBC & Chem 7: 03/21/18 04:07 03/23/18 03:35 Laboratory Results - last 24 hr 03/20/18 03/20/18 03/21/18 10:53 15:40 04:07 WBC 19.0 H RBC 6.69 H Hgb 13.7 Hct 42.9 MCV 64.1 L MCH 20.5 L MCHC 32.1 RDW 20.2 H Plt Count 156 MPV 8.8 Prelim Diff (Auto) Slide review pending Neut % (Auto) 59.8 Lymph % (Auto) 30.3 Yell % (Auto) 8.6 H Eos % (Auto) 1.3 Baso % (Auto) 0.0 Neut # (Auto) 11.4 H Lymph # (Auto) 5.8 H Yell # (Auto) 1.6 H Eos # (Auto) 0.3 Baso # (Auto) 0.0 WBC Differential Manual diff final Seg Neuts % (Manual) 51 Band Neuts % (Manual) 2 Lymphocytes % (Manual) 41 Monocytes % (Manual) 6 Abs Neuts (Manual) 10.1 H Differential Comment . Platelet Estimate Normal Platelet Morphology Enlarged H Ovalocytes 1+ H Sodium 136 Potassium 4.3 D Chloride 100 Carbon Dioxide 29.8 Anion Gap 6 BUN 68 H Creatinine 4.25 H Estimated GFR 13 L Random Glucose 147 H Hemoglobin A1c 6.4 H Calcium 8.9 Phosphorus Magnesium Total Bilirubin 1.1 H AST 22 ALT 74 Alkaline Phosphatase 83 Total Protein 6.6 Albumin 2.7 L 03/21/18 04:07 WBC RBC Hgb Hct MCV MCH MCHC RDW Plt Count MPV Prelim Diff (Auto) Neut % (Auto) Lymph % (Auto) Yell % (Auto) Eos % (Auto) Baso % (Auto) Neut # (Auto) Lymph # (Auto) Yell # (Auto) Eos # (Auto) Baso # (Auto) WBC Differential Seg Neuts % (Manual) Band Neuts % (Manual) Lymphocytes % (Manual) Monocytes % (Manual) Abs Neuts (Manual) Differential Comment Platelet Estimate Platelet Morphology Ovalocytes Sodium 136 Potassium 4.1 Chloride 99 Carbon Dioxide 26.6 Anion Gap 10 BUN 68 H Creatinine 3.79 H Estimated GFR 15 L Random Glucose 109 H Hemoglobin A1c Calcium 8.6 Phosphorus 4.6 Magnesium 2.4 Total Bilirubin 1.0 AST 21 ALT 60 Alkaline Phosphatase 75 Total Protein 6.4 Albumin 2.5 L Assessment and Plan - Plan 82yM with resolving severe multiorgan failure. now with afib RVR likely from electrolyte disturbances and volume overload. appreciate palliative care consultation. clinically improving. could still use some diuresis and needs aggressive physical therapy. New onset Atrial fibrillation with rapid ventricular response-03/18- converted immediately- now in SR Uncontrolled HYpertension- improved Cardiomyopathy - EF 35% - started on VErapamil 240 mg SR daily 03/20 - continue on Metorpolol 50 mg po bid - continue on Norvasc 5 mg po daily - start ASA Acute metabolic encephalopathy - resolved. - goal RASS 0 - frequent neuro checks Acute Hypoxic Respiratory failure- S/P extubation 03/16 - nc o2 for goal spo2 > 90% - aggressive pulmonary toilet - OOB with PT -DuoNeb scheduled and as needed - increase activity- will do walk test prior to DC if qualifies for home 02 COPD -No exacerbation -DuoNeb scheduled and as needed - lungs- clear Severe metabolic acidosis- resolved. Lactic Acidosis- resolved. -Non-anion gap -CT abdomen and pelvis unremarkable Shock- resolved -Telemetry -2D echo: EF 35%. -Series of troponins and EKGs - negative -Stress dose steroids: continue weaning. Acute kidney injury superimposed on CKD, unknown stage- improving. ++ Edema - Nephrology ff- IV diuretics ordered -Strict I's and O's, renal functions -Monitor creatinine and electrolytes Acute urinary retention- patient straight cath several times - fajardo finally placed today 03/21 - continue on flomax - consieder urology consult Acute protein calorie malnutrition- moderate Colon cancer s/p resection - tolerating diet needs OOB with PT. Hypokalemia - corrected - ff closelu DVT GI prophylaxis -Teds SCDs -Heparin -Pepcid Code Status: FULL CODE Procedures - Arterial Line Size (Gauge): 18
[2018-03-21 14:49] LABS: Bacteria,Urine Occasional /hpf; Bilirubin,Urine Negative (Negative); Clarity,Urine Clear (Clear); Color,Urine Yellow (Yellw/Straw); Glucose,Urine (UA) Negative (Negative); Leukocyte Esterase,Urine Negative (Negative); Mucus,Urine Few /lpf (Occasional); Nitrite,Urine Negative (Negative); Specific Gravity,Urine 1.009 (1.002-1.035)
--- NOTE | 2018-03-21 16:50 | P.PNPAL ---
Went to see patient in follow to see if he was able to participate in clarification of medical treatment goals, he was sound asleep, did not arouse to voice. Will attempt to see again 03/22/18.
[2018-03-22] MEDS: Heparin - SQ 10,000 UNITS/ML Vial SQ SCH (06:24)
[2018-03-22 06:25] LABS: Albumin 2.2 g/dL (3.4-5.0); Calcium 8.2 mg/dL (8.5-10.1); Carbon Dioxide 31.9 meq/L (21.0-32.0); Phosphorus 4.2 mg/dL (2.5-4.9); Potassium 3.8 meq/L (3.5-5.1)
[2018-03-22] MEDS: RESP: Levalbuterol 1.25 MG/3 ML Neb (SCH) NEB ×2 (07:39→15:52)
[2018-03-22] MEDS: amLODIPine 5 MG Tablet PO SCH (08:16)
[2018-03-22] MEDS: Chlorhexidine 0.12% Oral Kit 15 ML UDC OROPHARYNG SCH ×2 (08:16→20:47)
[2018-03-22] MEDS: Metoprolol Tartrate 50 MG Tablet PO SCH (08:16)
[2018-03-22] MEDS: Lidocaine 5% Patch T-DERMAL SCH (08:16)
[2018-03-22] MEDS: Senna/Docusate Sodium 8.6/50 MG Tablet PO SCH ×2 (08:16→20:46)
[2018-03-22] MEDS: Verapamil SR 240 MG Tablet PO SCH (08:16)
--- NOTE | 2018-03-22 08:42 | P.PN ---
Subjective Interval history: telemetry- reviewed- back in a fib rhythm good BP readings no complains Physical Exam Vital signs: Vital Signs 03/21/18 08:40 03/21/18 10:00 03/21/18 12:00 Temperature 98.4 F Pulse Rate 77 67 69 Respiratory Rate 17 16 Blood Pressure 128/60 Pulse Oximetry 96 92 L 03/21/18 14:00 03/21/18 15:50 03/21/18 16:00 Temperature Pulse Rate 70 73 75 Respiratory Rate 17 15 Blood Pressure 148/67 H Pulse Oximetry 98 03/21/18 18:00 03/21/18 20:00 03/21/18 21:26 Temperature 98.7 F Pulse Rate 70 89 86 Respiratory Rate 24 20 Blood Pressure 150/65 H Pulse Oximetry 96 95 03/21/18 22:00 03/22/18 00:00 03/22/18 02:00 Temperature 98.9 F Pulse Rate 89 92 H 88 Respiratory Rate 23 Blood Pressure 153/72 H Pulse Oximetry 96 03/22/18 03:16 03/22/18 04:00 03/22/18 07:40 Temperature 98.9 F Pulse Rate 89 79 95 H Respiratory Rate 28 H 17 24 Blood Pressure 124/57 L Pulse Oximetry 93 L 95 Intake & Output 03/21/18 03/22/18 03/22/18 18:59 06:59 18:59 Intake Total 1500 / 1500 240 / 240 Output Total 1550 / 1550 2049 / 2049 Balance -50 / -50 -1810 / -1810 Weight 114 kg Intake: IV 1000 / 1000 D5W Inj 1,000 ML @ 42 mls/hr IV 1000 / 1000 .CONT .[id number] [facility] Rx#:[id number] Oral 500 / 500 240 / 240 Output: Emesis 1000 / 1000 Urine Amount (Catheter) 1550 / 1550 1000 / 1000 Indwelling Urethral Catheter 1550 / 1550 1000 / 1000 Stool Amount (Stoma) 50 / 50 Right Lower Abdomen 50 / 50 Other: Date of Last Bowel Movement 03/18/18 03/22/18 # Emeses 1 Narrative: Awake alert and oriented 3 , very interactive, baseline hard of hearing GENERAL: Not in respiratory distress. SKIN: Warm and dry. HEAD: Normocephalic. EYES: No scleral icterus. No injection or drainage. NECK: Supple, trachea midline. No JVD or lymphadenopathy. CARDIOVASCULAR: irregularly irregular rhythm RESPIRATORY: Breath sounds equal bilaterally. No accessory muscle use. no wheezes, no rhonchis GASTROINTESTINAL: Abdomen soft, non-tender, nondistended. Obese MUSCULOSKELETAL: No cyanosis, LE ++ edema motor- moves all extremities equally - Urinary Catheter Management Indwelling Urethral Catheter Cath placed during this visit: no Urethral indwelling: Yes Reason for continuing: Hourly intake/output Straight Cath placed during this visit: no Results - Labs CBC & Chem 7: 03/21/18 04:07 03/22/18 05:26 Laboratory Results - last 24 hr 03/21/18 03/22/18 03/22/18 12:45 05:26 05:51 Sodium 140 Potassium 3.8 Chloride 100 Carbon Dioxide 31.9 Anion Gap 8 BUN 72 H Creatinine 3.13 H Estimated GFR 19 L POC Glucose 137 H Random Glucose 131 H Calcium 8.2 L Phosphorus 4.2 Albumin 2.2 L Urine Color Yellow Urine Clarity Clear Urine pH 5.0 Ur Specific Hominy 1.009 Urine Protein Negative Urine Glucose (UA) Negative Urine Ketones Negative Urine Occult Blood Moderate H Urine Nitrate Negative Urine Bilirubin Negative Urine Urobilinogen Less than 2 Ur Leukocyte Esterase Negative Urine RBC 43 H Urine WBC 2 Urine Bacteria Occasional H Urine Mucus Few H Micro UA Comment Cath-culture ind Urine Culture Comments Cath-cult indicated Assessment and Plan - Plan 82yM with resolving severe multiorgan failure. now with afib RVR likely from electrolyte disturbances and volume overload. appreciate palliative care consultation. clinically improving. could still use some diuresis and needs aggressive physical therapy. Paroxysmal Atrial fibrillation with rapid ventricular response-03/18- - now back into a fib again this am but rate controlled Uncontrolled HYpertension- improved Cardiomyopathy - EF 35% - started on VErapamil 240 mg SR daily 03/20- will DC with decrease EF - on Lopressor 50 mg bid - change to Coreg 50 mg bid with CMP today - continue on Norvasc 5 mg po daily- increase dose if needed for BP control - continue on Hydralazine 100 mg po q 8 - on ASA- will need OAC- CHADs >2 - start eliquis adjusted to renal function 2.5 mg po bid - continue on IV diuretics per Nephrology- edema improved - cardiology consult for recommendations Acute metabolic encephalopathy - resolved. - goal RASS 0 - frequent neuro checks Acute Hypoxic Respiratory failure- S/P extubation 03/16 - nc o2 for goal spo2 > 90% - aggressive pulmonary toilet - OOB with PT -DuoNeb scheduled and as needed - increase activity- will do walk test prior to DC if qualifies for home 02 COPD -No exacerbation -DuoNeb scheduled and as needed - lungs- clear Severe metabolic acidosis- resolved. Lactic Acidosis- resolved. -Non-anion gap -CT abdomen and pelvis unremarkable Shock- resolved -Telemetry -2D echo: EF 35%. -Series of troponins and EKGs - negative -Stress dose steroids: continue weaning. Acute kidney injury superimposed on CKD, unknown stage- improving. Peripheral Edema on exam - less today +- improving with diuretics - Nephrology ff- IV diuretics ordered -Strict I's and O's, renal functions -Monitor creatinine and electrolytes Acute urinary retention- patient straight cath several times - fajardo finally placed today 03/21 - continue on flomax- started 03/21 - voiding trial next few days- - consider urology consult Acute protein calorie malnutrition- moderate Colon cancer s/p resection - tolerating diet needs OOB with PT. Hypokalemia - corrected - ff closely DVT GI prophylaxis -Teds SCDs. Increae activity -DC Heparin SQ- started on eliquis for above - a fib -Pepcid Code Status: FULL CODE Procedures - Arterial Line Size (Gauge): 18
[2018-03-22] MEDS: Dextrose 5% in Water Inj 1,000 ML IV.CONT SCH (16:10)
--- NOTE | 2018-03-22 16:52 | P.PNNP ---
Subjective Interval history: Patient lying in bed. Not in respiratory distress. He is being transferred out of the ICU Physical Exam Vital signs: Vital Signs 03/21/18 18:00 03/21/18 20:00 03/21/18 21:26 Temperature 98.7 F Pulse Rate 70 89 86 Respiratory Rate 24 20 Blood Pressure 150/65 H Pulse Oximetry 96 95 03/21/18 22:00 03/22/18 00:00 03/22/18 02:00 Temperature 98.9 F Pulse Rate 89 92 H 88 Respiratory Rate 23 Blood Pressure 153/72 H Pulse Oximetry 96 03/22/18 03:16 03/22/18 04:00 03/22/18 06:00 Temperature 98.9 F Pulse Rate 89 79 88 Respiratory Rate 28 H 17 Blood Pressure 124/57 L Pulse Oximetry 93 L 03/22/18 07:40 03/22/18 08:00 03/22/18 10:00 Temperature 98.7 F Pulse Rate 95 H 63 63 Respiratory Rate 24 15 Blood Pressure 114/53 L Pulse Oximetry 95 95 03/22/18 12:00 03/22/18 14:00 03/22/18 15:54 Temperature 98 F Pulse Rate 61 65 69 Respiratory Rate 15 18 Blood Pressure 135/58 L Pulse Oximetry 95 03/22/18 16:00 Temperature 98.8 F Pulse Rate 63 Respiratory Rate 16 Blood Pressure 146/65 H Pulse Oximetry 95 Intake & Output 03/21/18 03/22/18 03/22/18 18:59 06:59 18:59 Intake Total 1500 / 1500 240 / 240 1000 / 1000 Output Total 1550 / 1550 2050 / 2050 450 / 450 Balance -50 / -50 -1810 / -1810 550 / 550 Weight 114 kg Intake: IV 1000 / 1000 1000 / 1000 D5W Inj 1,000 ML @ 42 mls/hr IV 1000 / 1000 1000 / 1000 .CONT .[id number] [facility] Rx#:[id number] Oral 500 / 500 240 / 240 Output: Emesis 1000 / 1000 Urine Amount (Catheter) 1550 / 1550 1000 / 1000 450 / 450 Indwelling Urethral Catheter 1550 / 1550 1000 / 1000 450 / 450 Stool Amount (Stoma) 50 / 50 Right Lower Abdomen 50 / 50 Other: Date of Last Bowel Movement 03/18/18 03/22/18 03/22/18 # Emeses 1 Narrative: Awake alert and oriented 3 , very interactive, baseline hard of hearing GENERAL: Not in respiratory distress. SKIN: Warm and dry. HEAD: Normocephalic. EYES: No scleral icterus. No injection or drainage. NECK: Supple, trachea midline. No JVD or lymphadenopathy. CARDIOVASCULAR: irregularly irregular rhythm RESPIRATORY: Breath sounds equal bilaterally. Clear to auscultation GASTROINTESTINAL: Abdomen soft, non-tender, nondistended. Obese MUSCULOSKELETAL: No cyanosis, 2+ pitting edema lower extremities. motor- moves all extremities equally - Urinary Catheter Management Indwelling Urethral Catheter Cath placed during this visit: yes Urethral indwelling: Yes Reason for continuing: Hourly intake/output Insertion date: 03/21/18 Insertion time: 12:00 Straight Cath placed during this visit: no Reason for continuing: Acute urinary retention Assessment and Plan - Assessment (1) Acute renal insufficiency Code(s): N28.9 - Disorder of kidney and ureter, unspecified Status: Acute Plan: Urine output is fair. Creatinine level has improved since yesterday. Continue Barker catheter drainage. I agree patient would likely benefit from urological evaluation at some point. Still with significant fluid retention. Increase furosemide to twice daily. Repeat BMP tomorrow. Medications should be adjusted for the patient's estimated GFR if clinically indicated. Avoid agents with significant potential for nephrotoxicity possible including NSAIDs for analgesia, iodine contrast agents. Gadolinium is contraindicated if the GFR is below 30. (2) Hypertension Code(s): I10 - Essential (primary) hypertension Status: Acute Procedures - Arterial Line Size (Gauge): 18
--- NOTE | 2018-03-22 17:26 | P.CONCA ---
<Netta Serna N - Last Filed: 03/22/18 16:44> History of Present Illness Service: Cardiology Consult date: 03/22/18 Requesting Physician: Armand Elizabeth Reason for Consult: Parosymal A-fib intermittent, CMP EF 35% Primary Care Provider: Yfn Myles MD Family Provider: Yfn Myles MD History of Present Illness: Pleasant 82-year old male who was admitted on 03-11-2018 via the Emergency Department (ED) with complaints of not feeling well. Family was concerned that he may have intentionally taken to much of his current blood pressure medications so he was emergently intubated while in the ED. Currently the patient is resting comfortably in bed on 4.5L NC with no complaints of pressure , dizziness, palpitations or SOB. Pt does complain of chest pain that goes away when he coughs and clears his chest. ECG's show atrial fib/flutter on different occasions. Pt currently SR on monitor. Pt has a history of atrial fibrillation, COPD, Colon Cancer, Colostomy, hyperlipidemia and hypertension. Obtained patients history through reviewing the chart and speaking with the patient. Review of Systems Cardiovascular: Reports chest pain Comments: pt states it goes away when he coughs and clears his chest. [facility] - History History Provided By: Family Member (daughter, Estella), Nurse Substance Abuse / EMT - Medical History Medical History: Medical History (Last Reviewed 03/20/18 @ 09:49 by Doris Couch) Afib Arthritis COPD (chronic obstructive pulmonary disease) Colon cancer Diabetes mellitus HLD (hyperlipidemia) HTN (hypertension) Polyneuropathy - Surgical History Surgical History: Surgical History (Last Reviewed 03/20/18 @ 09:49 by Doris Couch) Colostomy in place H/O nasal sinusotomy History of ethmoidectomy History of umbilical hernia repair History of unicondylar arthroplasty of right knee Status post laser cataract surgery of both eyes - Family History Family History: Family History (Last Reviewed 03/20/18 @ 09:49 by Doris Couch) Father Motor vehicle accident Mother Old age - Tobacco History Tobacco Use In Past 30 Days: No Smoking Status: Former smoker (Quit smoking 8 years ago) Smoking End Date: 2009 - Alcohol History How Often Do You Have a Drink Containing Alcohol: Never - Substance Use History Substance History: No History of Abuse, Unable to Obtain - Travel History Recent Travel in the [place] Within the Last 8 Weeks: No Recent Travel Out of the Country Within the Last 8 Weeks: No Medications and Allergies Allergies Allergy/AdvReac Type Severity Reaction Status Date / Time aspirin Allergy Mild HEART RATE Unverified 02/06/18 11:37 INCREASES caffeine Allergy Mild HEART RATE Unverified 02/06/18 11:37 INCREASES Home Medications Medication Instructions Recorded Confirmed Type hydrochlorothiazide 25 mg PO QAM 03/12/18 03/12/18 History lisinopril 5 mg PO DAILY 03/12/18 03/12/18 History metoprolol tartrate 50 mg PO BID 03/12/18 03/12/18 History verapamil 240 mg PO QAM 03/12/18 03/12/18 History Active Medications: Active Medications Acetaminophen (Tylenol) 650 mg PO Q6H PRN PRN Reason: PAIN 1-10 AND/OR FEVER >101F Last Admin: 03/19/18 02:43 Dose: 650 mg Al Hydroxide/Mg Hydroxide (Milk Of Posiqmarita Grajeda) 30 ml PO Q12H PRN PRN Reason: Mild Constipation Amiodarone HCl (Cordarone) 200 mg PO Q12HR [facility] Amlodipine Besylate (Norvasc) 5 mg PO DAILY [facility] Last Admin: 03/22/18 08:16 Dose: 5 mg Apixaban (Eliquis) 2.5 mg PO BID [facility] Last Admin: 03/22/18 11:28 Dose: 2.5 mg Bisacodyl (Dulcolax Supp) 10 mg RECTAL DAILY PRN PRN Reason: SEVERE CONSITIPATION Carvedilol (Coreg) 50 mg PO Q12H [facility] Chlorhexidine Gluconate (Peridex 0.12% Oral Kit) 15 ml OROPHARYNG BID@0800, 2000 [facility] Last Admin: 03/22/18 08:16 Dose: Not Given Clonidine HCl (Catapres) 0.1 mg PO Q6H PRN PRN Reason: HYPERTENSION Last Admin: 03/19/18 05:41 Dose: 0.1 mg Furosemide (Lasix Inj) 40 mg IV.PUSH DAILY [facility] Last Admin: 03/22/18 08:15 Dose: 40 mg Hydralazine HCl (Apresoline Inj) 20 mg IV.PUSH Q1H PRN PRN Reason: sbp > 180 Last Admin: 03/20/18 06:32 Dose: 20 mg Hydralazine HCl (Apresoline) 100 mg PO Q8H [facility] Last Admin: 03/22/18 16:10 Dose: 100 mg Dextrose (D5w Inj) 1,000 mls @ 42 mls/hr IV.CONT .[id number] [facility] Last Admin: 03/22/18 16:10 Dose: 42 mls/hr Ipratropium Holcomb (Atrovent Neb) 0.5 mg NEB Q6HR NEB [facility] Last Admin: 03/22/18 15:52 Dose: 0.5 mg Ipratropium Holcomb (Atrovent Neb) 0.5 mg NEB Q2HR NEB PRN PRN Reason: SHORTNESS OF BREATH/WHEEZING Labetalol HCl (Trandate Inj) 20 mg IV.PUSH Q10M PRN PRN Reason: SBP > 180 Lactulose (Lactulose Liq) 30 ml PO DAILY PRN PRN Reason: SEVERE CONSITIPATION Levalbuterol HCl (Xopenex Neb) 1.25 mg NEB Q8HR NEB [facility] Last Admin: 03/22/18 15:52 Dose: 1.25 mg Lidocaine HCl (Lidoderm 5% Patch.12 Hr) 1 patch T-DERMAL DAILY [facility] Last Admin: 03/22/18 08:16 Dose: 1 patch Metoclopramide HCl (Reglan Inj) 5 mg IV.PUSH Q8H [facility]; Protocol Last Admin: 03/22/18 11:28 Dose: 5 mg Morphine Sulfate (Morphine Inj) 2 mg IV.PUSH Q3H PRN PRN Reason: PAIN 3-5; IF UABLE TO TAKE PO Morphine Sulfate (Morphine Inj) 4 mg IV.PUSH Q3H PRN PRN Reason: BREAKTHROUGH PAIN Morphine Sulfate (Morphine Inj) 4 mg IV.PUSH Q3H PRN PRN Reason: PAIN 6-10;IF UNABLE TO TAKE PO Naloxone HCl (Narcan Inj) 0.4 mg IV.PUSH UNSCH PRN PRN Reason: SEE LABEL COMMENTS Ondansetron HCl (Zofran Odt) 4 mg PO Q6H PRN PRN Reason: NAUSEA OR VOMITING Last Admin: 03/22/18 00:57 Dose: 4 mg Ondansetron HCl (Zofran Inj) 4 mg IV.PUSH Q6H PRN PRN Reason: NAUSEA OR VOMITING Last Admin: 07/21/18 20:31 Dose: 4 mg Oxycodone HCl (Roxicodone) 5 mg PO Q4H PRN PRN Reason: pain 1-5 Last Admin: 03/19/18 14:50 Dose: 5 mg Patch Removal (Remove Old Patch) 1 each T-DERMAL HS [facility] Last Admin: 03/21/18 21:36 Dose: 1 each Prochlorperazine Edisylate (Compazine Inj) 10 mg IV.PUSH Q6H PRN PRN Reason: NAUSEA/VOMITING Last Admin: 03/19/18 05:41 Dose: 10 mg Senna/Docusate Sodium (Krystin-Colace) 1 tab PO BID [facility] Last Admin: 03/22/18 08:16 Dose: Not Given Sennosides (Senokot) 17.2 mg PO Q12H PRN PRN Reason: Moderate Constipation Last Admin: 03/21/18 05:38 Dose: 17.2 mg Sodium Chloride (Ns Flush) 2 ml IV.FLUSH BID [facility] Last Admin: 03/22/18 08:16 Dose: 2 ml Sodium Chloride (Ns Flush) 2 ml IV.FLUSH PRN PRN PRN Reason: FLUSH AFTER USING IV ACCESS Last Admin: 03/20/18 09:09 Dose: 2 ml Tamsulosin HCl (Flomax) 0.4 mg PO DAILY [facility] Last Admin: 03/22/18 08:16 Dose: 0.4 mg Trimethobenzamide HCl (Tigan Ing) 200 mg IM Q6H PRN PRN Reason: NAUSEA/VOMITING Last Admin: 03/19/18 08:01 Dose: 200 mg Exam Vital signs: Vital Signs 03/21/18 18:00 03/21/18 20:00 03/21/18 21:26 Temperature 98.7 F Pulse Rate 70 89 86 Respiratory Rate 24 20 Blood Pressure 150/65 H Pulse Oximetry 96 95 03/21/18 22:00 03/22/18 00:00 03/22/18 02:00 Temperature 98.9 F Pulse Rate 89 92 H 88 Respiratory Rate 23 Blood Pressure 153/72 H Pulse Oximetry 96 03/22/18 03:16 03/22/18 04:00 03/22/18 06:00 Temperature 98.9 F Pulse Rate 89 79 88 Respiratory Rate 28 H 17 Blood Pressure 124/57 L Pulse Oximetry 93 L 03/22/18 07:40 03/22/18 08:00 03/22/18 10:00 Temperature 98.7 F Pulse Rate 95 H 63 63 Respiratory Rate 24 15 Blood Pressure 114/53 L Pulse Oximetry 95 95 03/22/18 12:00 03/22/18 14:00 03/22/18 15:54 Temperature 98 F Pulse Rate 61 65 69 Respiratory Rate 15 18 Blood Pressure 135/58 L Pulse Oximetry 95 03/22/18 16:00 Temperature 98.8 F Pulse Rate 63 Respiratory Rate 16 Blood Pressure 146/65 H Pulse Oximetry 95 Intake & Output 03/21/18 03/22/18 03/22/18 18:59 06:59 18:59 Intake Total 1500 / 1500 240 / 240 1000 / 1000 Output Total 1550 / 1550 2050 / 2050 450 / 450 Balance -50 / -50 -1810 / -1810 550 / 550 Weight 114 kg Intake: IV 1000 / 1000 1000 / 1000 D5W Inj 1,000 ML @ 42 mls/hr IV 1000 / 1000 1000 / 1000 .CONT .[id number] [facility] Rx#:[id number] Oral 500 / 500 240 / 240 Output: Emesis 1000 / 1000 Urine Amount (Catheter) 1550 / 1550 1000 / 1000 450 / 450 Indwelling Urethral Catheter 1550 / 1550 1000 / 1000 450 / 450 Stool Amount (Stoma) 50 / 50 Right Lower Abdomen 50 / 50 Other: Date of Last Bowel Movement 03/18/18 03/22/18 03/22/18 # Emeses 1 - Constitutional no acute distress - Routine HEENT Exam Head: Present: normocephalic Eye: Present: PERRL ENT: Present: mucous membranes moist - Routine Neck Exam Present: supple - Routine Respiratory Exam Present: decreased breath sounds, distant breath sounds - Routine Cardiovascular Exam Present: RRR, S1, S2. Absent: murmur, gallop, rubs - Routine Abdominal Exam Present: soft - Routine Extremities Exam Present: edema, pulses intact Comments: 2+ edema lower extremities - Routine Neurological Exam Present: oriented X3 Pt [place] Results 03/21/18 04:07 03/22/18 05:26 Comprehensive Metabolic Panel 03/22/18 Range/Units 05:26 Sodium 140 (136-145) meq/L Potassium 3.8 (3.5-5.1) meq/L Chloride 100 (98-107) meq/L Carbon Dioxide 31.9 (21.0-32.0) meq/L BUN 72 H (7-18) mg/dL Creatinine 3.13 H (0.60-1.30) mg/dL Calcium 8.2 L (8.5-10.1) mg/dL Albumin 2.2 L (3.4-5.0) g/dL Intake and Output 03/22/18 03/22/18 03/22/18 06:59 14:59 22:59 Intake Total 240 / 240 1000 / 1000 Output Total 2049 450 / 450 Balance -1810 / -1810 1000 / 1000 -450 / -450 Intake: IV 1000 / 1000 D5W Inj 1,000 ML @ 42 mls/hr IV 1000 / 1000 .CONT .[id number] [facility] Rx#:[id number] Oral 240 / 240 Output: Emesis 1000 / 1000 Urine Amount (Catheter) 1000 / 1000 450 / 450 Indwelling Urethral Catheter 1000 / 1000 450 / 450 Stool Amount (Stoma) 50 / 50 Right Lower Abdomen 50 / 50 Other: Date of Last Bowel Movement 03/22/18 03/22/18 03/22/18 # Emeses 1 Weight 114 kg - Imaging and Cardiology Echo: report reviewed (mild dilated LV, EF 35-40%, trace mitral valve regurg, mild aortic regurg) EKG interpretations - Dysrhythmias Supraventricular dysrhythmia: atrial fibrillation, atrial flutter Assessment and Plan - Assessment (1) Chest pain, atypical Code(s): R07.89 - Other chest pain Status: Acute (2) COPD (chronic obstructive pulmonary disease) Code(s): J44.9 - Chronic obstructive pulmonary disease, unspecified Status: Acute (3) Hypotension Code(s): I95.9 - Hypotension, unspecified Status: Acute (4) Dyspnea Code(s): R06.00 - Dyspnea, unspecified Status: Acute (5) Cardiomyopathy Code(s): I42.9 - Cardiomyopathy, unspecified Status: Acute (6) Congestive heart failure (CHF) Code(s): I50.9 - Heart failure, unspecified Status: Acute (7) Obesity Code(s): E66.9 - Obesity, unspecified Status: Acute (8) Renal insufficiency Code(s): N28.9 - Disorder of kidney and ureter, unspecified Status: Acute - Plan Pt currently in SR on monitor. Start Amiodarone 200mg PO BID for intermittent paroxysmal atrial fibrillation. Continue to monitor blood pressure and heart rate. Continue with current cardiac treatment and diuresis. Increase activities as tolerated. May transfer patient to floor per cardiac standpoint. Nephrology evaluation in progress along with palliative care. Will continue to follow patient during hospitalization. Procedures - Arterial Line Size (Gauge): 18 <Joel Esparza - Last Filed: 03/22/18 18:07> History of Present Illness Primary Care Provider: Yfn Myles MD Family Provider: Yfn Myles MD [facility] - Medical History Medical History: Medical History (Last Reviewed 03/20/18 @ 09:49 by Doris Couch) Afib Arthritis COPD (chronic obstructive pulmonary disease) Colon cancer Diabetes mellitus HLD (hyperlipidemia) HTN (hypertension) Polyneuropathy - Surgical History Surgical History: Surgical History (Last Reviewed 03/20/18 @ 09:49 by Doris Couch) Colostomy in place H/O nasal sinusotomy History of ethmoidectomy History of umbilical hernia repair History of unicondylar arthroplasty of right knee Status post laser cataract surgery of both eyes - Family History Family History: Family History (Last Reviewed 03/20/18 @ 09:49 by Doris Couch) Father Motor vehicle accident Mother Old age Medications and Allergies Active Medications: Active Medications Acetaminophen (Tylenol) 650 mg PO Q6H PRN PRN Reason: PAIN 1-10 AND/OR FEVER >101F Last Admin: 03/19/18 02:43 Dose: 650 mg Al Hydroxide/Mg Hydroxide (Milk Of Storm Grajeda) 30 ml PO Q12H PRN PRN Reason: Mild Constipation Amiodarone HCl (Cordarone) 200 mg PO Q12HR [facility] Amlodipine Besylate (Norvasc) 5 mg PO DAILY [facility] Last Admin: 03/22/18 08:16 Dose: 5 mg Apixaban (Eliquis) 2.5 mg PO BID [id number] Last Admin: 03/22/18 11:28 Dose: 2.5 mg Bisacodyl (Dulcolax Supp) 10 mg RECTAL DAILY PRN PRN Reason: SEVERE CONSITIPATION Carvedilol (Coreg) 50 mg PO Q12H [facility] Chlorhexidine Gluconate (Peridex 0.12% Oral Kit) 15 ml OROPHARYNG BID@0800, 2000 [facility] Last Admin: 03/22/18 08:16 Dose: Not Given Clonidine HCl (Catapres) 0.1 mg PO Q6H PRN PRN Reason: HYPERTENSION Last Admin: 03/19/18 05:41 Dose: 0.1 mg Furosemide (Lasix Inj) 40 mg IV.PUSH BID@0900,1800 [facility] Last Admin: 03/22/18 17:34 Dose: 40 mg Hydralazine HCl (Apresoline Inj) 20 mg IV.PUSH Q1H PRN PRN Reason: sbp > 180 Last Admin: 03/20/18 06:32 Dose: 20 mg Hydralazine HCl (Apresoline) 100 mg PO Q8H [facility] Last Admin: 03/22/18 16:10 Dose: 100 mg Dextrose (D5w Inj) 1,000 mls @ 42 mls/hr IV.CONT .[id number] [facility] Last Admin: 03/22/18 16:10 Dose: 42 mls/hr Ipratropium Holcomb (Atrovent Neb) 0.5 mg NEB Q6HR NEB [facility] Last Admin: 03/22/18 15:52 Dose: 0.5 mg Ipratropium Holcomb (Atrovent Neb) 0.5 mg NEB Q2HR NEB PRN PRN Reason: SHORTNESS OF BREATH/WHEEZING Labetalol HCl (Trandate Inj) 20 mg IV.PUSH Q10M PRN PRN Reason: SBP > 180 Lactulose (Lactulose Liq) 30 ml PO DAILY PRN PRN Reason: SEVERE CONSITIPATION Levalbuterol HCl (Xopenex Neb) 1.25 mg NEB Q8HR NEB [facility] Last Admin: 03/22/18 15:52 Dose: 1.25 mg Lidocaine HCl (Lidoderm 5% Patch.12 Hr) 1 patch T-DERMAL DAILY [facility] Last Admin: 03/22/18 08:16 Dose: 1 patch Metoclopramide HCl (Reglan Inj) 5 mg IV.PUSH Q8H [facility]; Protocol Last Admin: 03/22/18 17:35 Dose: 5 mg Morphine Sulfate (Morphine Inj) 2 mg IV.PUSH Q3H PRN PRN Reason: PAIN 3-5; IF UABLE TO TAKE PO Morphine Sulfate (Morphine Inj) 4 mg IV.PUSH Q3H PRN PRN Reason: BREAKTHROUGH PAIN Morphine Sulfate (Morphine Inj) 4 mg IV.PUSH Q3H PRN PRN Reason: PAIN 6-10;IF UNABLE TO TAKE PO Naloxone HCl (Narcan Inj) 0.4 mg IV.PUSH UNSCH PRN PRN Reason: SEE LABEL COMMENTS Ondansetron HCl (Zofran Odt) 4 mg PO Q6H PRN PRN Reason: NAUSEA OR VOMITING Last Admin: 03/22/18 00:57 Dose: 4 mg Ondansetron HCl (Zofran Inj) 4 mg IV.PUSH Q6H PRN PRN Reason: NAUSEA OR VOMITING Last Admin: 03/18/18 20:31 Dose: 4 mg Oxycodone HCl (Roxicodone) 5 mg PO Q4H PRN PRN Reason: pain 1-5 Last Admin: 03/19/18 14:50 Dose: 5 mg Patch Removal (Remove Old Patch) 1 each T-DERMAL HS [facility] Last Admin: 03/21/18 21:36 Dose: 1 each Prochlorperazine Edisylate (Compazine Inj) 10 mg IV.PUSH Q6H PRN PRN Reason: NAUSEA/VOMITING Last Admin: 03/19/18 05:41 Dose: 10 mg Senna/Docusate Sodium (Krystin-Colace) 1 tab PO BID [facility] Last Admin: 03/22/18 08:16 Dose: Not Given Sennosides (Senokot) 17.2 mg PO Q12H PRN PRN Reason: Moderate Constipation Last Admin: 03/21/18 05:38 Dose: 17.2 mg Sodium Chloride (Ns Flush) 2 ml IV.FLUSH BID [facility] Last Admin: 03/22/18 08:16 Dose: 2 ml Sodium Chloride (Ns Flush) 2 ml IV.FLUSH PRN PRN PRN Reason: FLUSH AFTER USING IV ACCESS Last Admin: 03/20/18 09:09 Dose: 2 ml Tamsulosin HCl (Flomax) 0.4 mg PO DAILY [facility] Last Admin: 03/22/18 08:16 Dose: 0.4 mg Trimethobenzamide HCl (Tigan Ing) 200 mg IM Q6H PRN PRN Reason: NAUSEA/VOMITING Last Admin: 03/19/18 08:01 Dose: 200 mg Exam Vital signs: Vital Signs 03/21/18 20:00 03/21/18 21:26 03/21/18 22:00 Temperature 98.7 F Pulse Rate 89 86 89 Respiratory Rate 24 20 Blood Pressure 150/65 H Pulse Oximetry 96 95 03/22/18 00:00 03/22/18 02:00 03/22/18 03:16 Temperature 98.9 F Pulse Rate 92 H 88 89 Respiratory Rate 23 28 H Blood Pressure 153/72 H Pulse Oximetry 96 03/22/18 04:00 03/22/18 06:00 03/22/18 07:40 Temperature 98.9 F Pulse Rate 79 88 95 H Respiratory Rate 17 24 Blood Pressure 124/57 L Pulse Oximetry 93 L 95 03/22/18 08:00 03/22/18 10:00 03/22/18 12:00 Temperature 98.7 F 98 F Pulse Rate 63 63 61 Respiratory Rate 15 15 Blood Pressure 114/53 L 135/58 L Pulse Oximetry 95 95 03/22/18 14:00 03/22/18 15:54 03/22/18 16:00 Temperature 98.8 F Pulse Rate 65 69 63 Respiratory Rate 18 16 Blood Pressure 146/65 H Pulse Oximetry 95 03/22/18 17:15 Temperature Pulse Rate 78 Respiratory Rate Blood Pressure Pulse Oximetry Intake & Output 03/21/18 03/22/18 03/22/18 18:59 06:59 18:59 Intake Total 1500 / 1500 240 / 240 1000 / 1000 Output Total 1550 / 1550 2050 / 2050 450 / 450 Balance -50 / -50 -1810 / -1810 550 / 550 Weight 251 lb 5.231 oz Intake: IV 1000 / 1000 1000 / 1000 D5W Inj 1,000 ML @ 42 mls/hr IV 1000 / 1000 1000 / 1000 .CONT .[id number] [facility] Rx#:[id number] Oral 500 / 500 240 / 240 Output: Emesis 1000 / 1000 Urine Amount (Catheter) 1550 / 1550 1000 / 1000 450 / 450 Indwelling Urethral Catheter 1550 / 1550 1000 / 1000 450 / 450 Stool Amount (Stoma) 50 / 50 Right Lower Abdomen 50 / 50 Other: Date of Last Bowel Movement 03/18/18 03/22/18 03/22/18 # Emeses 1 Results 03/21/18 04:07 03/22/18 05:26 Comprehensive Metabolic Panel 03/22/18 Range/Units 05:26 Sodium 140 (136-145) meq/L Potassium 3.8 (3.5-5.1) meq/L Chloride 100 (98-107) meq/L Carbon Dioxide 31.9 (21.0-32.0) meq/L BUN 72 H (7-18) mg/dL Creatinine 3.13 H (0.60-1.30) mg/dL Calcium 8.2 L (8.5-10.1) mg/dL Albumin 2.2 L (3.4-5.0) g/dL Intake and Output 03/22/18 03/22/18 03/22/18 06:59 14:59 22:59 Intake Total 240 / 240 1000 / 1000 Output Total 2049 / 2049 450 / 450 Balance -1810 / -1810 1000 / 1000 -450 / -450 Intake: IV 1000 / 1000 D5W Inj 1,000 ML @ 42 mls/hr IV 1000 / 1000 .CONT .[id number] [facility] Rx#:[id number] Oral 240 / 240 Output: Emesis 1000 / 1000 Urine Amount (Catheter) 1000 / 1000 450 / 450 Indwelling Urethral Catheter 1000 / 1000 450 / 450 Stool Amount (Stoma) 50 / 50 Right Lower Abdomen 50 / 50 Other: Date of Last Bowel Movement 03/22/18 03/22/18 03/22/18 # Emeses 1 Weight 251 lb 5.231 oz Assessment and Plan - Assessment (1) Chest pain, atypical Code(s): R07.89 - Other chest pain Status: Acute (2) COPD (chronic obstructive pulmonary disease) Code(s): J44.9 - Chronic obstructive pulmonary disease, unspecified Status: Acute (3) Hypotension Code(s): I95.9 - Hypotension, unspecified Status: Acute (4) Dyspnea Code(s): R06.00 - Dyspnea, unspecified Status: Acute (5) Cardiomyopathy Code(s): I42.9 - Cardiomyopathy, unspecified Status: Acute (6) Congestive heart failure (CHF) Code(s): I50.9 - Heart failure, unspecified Status: Acute (7) Obesity Code(s): E66.9 - Obesity, unspecified Status: Acute (8) Renal insufficiency Code(s): N28.9 - Disorder of kidney and ureter, unspecified Status: Acute - Attending Attestation Patient seen and examined. I reviewed and agree with the evaluation and plan as presented. Amiodarone started for the management of paroxysmal a fib with RVR.
[2018-03-22] MEDS ORDERED: Carvedilol 12.5 MG Tablet PO SCH (20:00)
[2018-03-22] MEDS: Amiodarone 200 MG Tablet PO SCH (20:46)
[2018-03-22] MEDS: Carvedilol 12.5 MG Tablet PO SCH (20:47)
[2018-03-23] MEDS: RESP: Levalbuterol 1.25 MG/3 ML Neb (SCH) NEB ×3 (00:44→16:11)
[2018-03-23 05:00] LABS: Albumin 2.3 g/dL (3.4-5.0); Anion Gap 7 meq/L (5-15); Aspartate Aminotransferase 18 U/L (15-37); Blood Urea Nitrogen 74 mg/dL (7-18); Calcium 8.4 mg/dL (8.5-10.1); Carbon Dioxide 32.6 meq/L (21.0-32.0); Chloride 98 meq/L (98-107); Glomerular Filtration Rate 19 mL/min (>89); Glucose,Random 131 mg/dL (74-106); Potassium 3.8 meq/L (3.5-5.1); Sodium 138 meq/L (136-145)
[2018-03-23 05:03] LABS: Alanine Aminotransferase 39 U/L (12-78); Alkaline Phosphatase 70 U/L (45-117); Total Protein 6.1 g/dL (6.4-8.2)
--- NOTE | 2018-03-23 08:26 | P.PN ---
Subjective Interval history: awake alert, states had a good night no pain "need help with my peeing" telemetry- in a fib rate 70s Physical Exam Vital signs: Vital Signs 03/22/18 10:00 03/22/18 12:00 03/22/18 14:00 Temperature 98 F Pulse Rate 63 61 65 Respiratory Rate 15 Blood Pressure 135/58 L Pulse Oximetry 95 03/22/18 15:54 03/22/18 16:00 03/22/18 17:15 Temperature 98.8 F Pulse Rate 69 63 78 Respiratory Rate 18 16 Blood Pressure 146/65 H Pulse Oximetry 95 03/22/18 20:00 03/22/18 21:00 03/22/18 21:07 Temperature 99.7 F H Pulse Rate 87 94 H 91 H Respiratory Rate 20 18 Blood Pressure 154/66 H Pulse Oximetry 98 03/22/18 21:08 03/22/18 22:00 03/22/18 23:00 Temperature Pulse Rate 78 74 Respiratory Rate Blood Pressure Pulse Oximetry 96 03/23/18 00:00 03/23/18 00:44 03/23/18 01:00 Temperature 98.6 F Pulse Rate 66 67 68 Respiratory Rate 20 20 Blood Pressure 123/60 Pulse Oximetry 95 03/23/18 02:00 03/23/18 03:00 03/23/18 04:00 Temperature 98.1 F Pulse Rate 68 70 71 Respiratory Rate 20 Blood Pressure 143/63 H Pulse Oximetry 95 03/23/18 05:00 03/23/18 06:00 03/23/18 07:00 Temperature 98.9 F Pulse Rate 68 70 70 Respiratory Rate 20 Blood Pressure 131/60 Pulse Oximetry 94 L 03/23/18 08:00 Temperature Pulse Rate 72 Respiratory Rate Blood Pressure Pulse Oximetry Intake & Output 03/22/18 03/23/18 03/23/18 18:59 06:59 18:59 Intake Total 1000 / 1000 240 / 240 Output Total 450 / 450 450 / 450 Balance 550 / 550 -210 / -210 Weight 118 kg Intake: IV 1000 / 1000 D5W Inj 1,000 ML @ 42 mls/hr IV 1000 / 1000 .CONT .[id number] [facility] Rx#:[id number] Oral 240 / 240 Output: Urine 450 / 450 Urine Amount (Catheter) 450 / 450 Indwelling Urethral Catheter 450 / 450 Other: Date of Last Bowel Movement 03/22/18 Narrative: Awake alert and oriented 3 , baseline hard of hearing GENERAL: Not in respiratory distress. SKIN: Warm and dry. HEAD: Normocephalic. EYES: No scleral icterus. No injection or drainage. NECK: Supple, trachea midline. No JVD or lymphadenopathy. CARDIOVASCULAR: - irregular rhythm- telemetry- a fib , rate 70s RESPIRATORY: Breath sounds equal bilaterally. No accessory muscle use. no wheezes, no rhonchi GASTROINTESTINAL: Abdomen soft, non-tender, nondistended. Obese fajardo in place MUSCULOSKELETAL: No cyanosis, LE + edema motor- moves all extremities equally - Urinary Catheter Management Indwelling Urethral Catheter Cath placed during this visit: yes Urethral indwelling: Yes Reason for continuing: Hourly intake/output Insertion date: 03/21/18 Insertion time: 12:00 Straight Cath placed during this visit: no Reason for continuing: Acute urinary retention Results - Labs CBC & Chem 7: 03/21/18 04:07 03/23/18 03:35 Laboratory Results - last 24 hr 03/23/18 03:35 Sodium 138 Potassium 3.8 Chloride 98 Carbon Dioxide 32.6 H Anion Gap 7 BUN 74 H Creatinine 3.19 H Estimated GFR 19 L Random Glucose 131 H Calcium 8.4 L Total Bilirubin 0.8 AST 18 ALT 39 Alkaline Phosphatase 70 Total Protein 6.1 L Albumin 2.3 L Microbiology 03/21/18 12:45 Catheterized Urine Urine Culture - Preliminary No growth in 24 hours Assessment and Plan - Plan 82yM with resolving severe multiorgan failure. now with afib RVR likely from electrolyte disturbances and volume overload. appreciate palliative care consultation. clinically improving. could still use some diuresis and needs aggressive physical therapy. New onset Atrial fibrillation with rapid ventricular response-03/18-- in and out of a fib- now a fib again Uncontrolled HYpertension- improved Cardiomyopathy - EF 35% - Coreg 50 mg po bid, amlodipine 5 mg daily - started on amiodarone 200 mg po bid - seen by Cardiology- ff Acute metabolic encephalopathy - resolved. - goal RASS 0 - frequent neuro checks Acute Hypoxic Respiratory failure- S/P extubation 03/16 - nc o2 for goal spo2 > 90% - aggressive pulmonary toilet - OOB with PT -DuoNeb scheduled and as needed - increase activity- will do walk test prior to DC if qualifies for home 02 Acute kidney injury superimposed on CKD, unknown stage- improving. Hyperkalemia- resolved - renal functions stabilizing - decrease LE edema - Nephrology ff- IV diuretics ordered q 12 -Strict I's and O's, renal functions -Monitor creatinine and electrolytes Acute urinary retention- patient straight cath several times - fajardo finally placed 03/21 - continue on flomax- started 03/21 - Urology consult for evaluation and recommendation COPD -No exacerbation -DuoNeb scheduled and as needed - lungs- clear Severe metabolic acidosis- resolved. Lactic Acidosis- resolved. -Non-anion gap -CT abdomen and pelvis unremarkable Shock- resolved -Telemetry -2D echo: EF 35%. -Series of troponins and EKGs - negative -off steroids Acute protein calorie malnutrition- moderate Colon cancer s/p resection - tolerating diet needs OOB with PT. Out of bed to chair for all meals DVT GI prophylaxis -Teds SCDs -Heparin -Pepcid Code Status: FULL CODE Procedures - Arterial Line Size (Gauge): 18
[2018-03-23] MEDS: Chlorhexidine 0.12% Oral Kit 15 ML UDC OROPHARYNG SCH (08:49)
[2018-03-23] MEDS: Senna/Docusate Sodium 8.6/50 MG Tablet PO SCH ×2 (08:50→22:10)
[2018-03-23] MEDS: Carvedilol 12.5 MG Tablet PO SCH ×2 (08:50→22:10)
[2018-03-23] MEDS: Amiodarone 200 MG Tablet PO SCH ×2 (08:51→22:10)
[2018-03-23] MEDS: amLODIPine 5 MG Tablet PO SCH (08:51)
[2018-03-23] MEDS: Lidocaine 5% Patch T-DERMAL SCH (08:51)
--- NOTE | 2018-03-23 11:35 | P.PNCA ---
<Netta Serna N - Last Filed: 03/23/18 11:21> Subjective Interval history: Pt denies CP, pressure, palpitations, dizziness or SOB. Pt does c/o congestion and states he takes medication at home for it. Pt in chair at this time. Physical Exam Vital signs: Vital Signs 03/22/18 12:00 03/22/18 14:00 03/22/18 15:54 Temperature 98 F Pulse Rate 61 65 69 Respiratory Rate 15 18 Blood Pressure 135/58 L Pulse Oximetry 95 03/22/18 16:00 03/22/18 17:15 03/22/18 20:00 Temperature 98.8 F 99.7 F H Pulse Rate 63 78 87 Respiratory Rate 16 20 Blood Pressure 146/65 H 154/66 H Pulse Oximetry 95 98 03/22/18 21:00 03/22/18 21:07 03/22/18 21:08 Temperature Pulse Rate 94 H 91 H Respiratory Rate 18 Blood Pressure Pulse Oximetry 96 03/22/18 22:00 03/22/18 23:00 03/23/18 00:00 Temperature 98.6 F Pulse Rate 78 74 66 Respiratory Rate 20 Blood Pressure 123/60 Pulse Oximetry 95 03/23/18 00:44 03/23/18 01:00 03/23/18 02:00 Temperature Pulse Rate 67 68 68 Respiratory Rate 20 Blood Pressure Pulse Oximetry 03/23/18 03:00 03/23/18 04:00 03/23/18 05:00 Temperature 98.1 F Pulse Rate 70 71 68 Respiratory Rate 20 Blood Pressure 143/63 H Pulse Oximetry 95 03/23/18 06:00 03/23/18 07:00 03/23/18 08:00 Temperature 98.9 F Pulse Rate 70 70 72 Respiratory Rate 20 Blood Pressure 131/60 Pulse Oximetry 94 L 03/23/18 09:00 03/23/18 10:00 Temperature Pulse Rate 65 67 Respiratory Rate Blood Pressure Pulse Oximetry Intake & Output 03/22/18 03/23/18 03/23/18 18:59 06:59 18:59 Intake Total 1000 / 1000 240 / 240 Output Total 450 / 450 450 / 450 Balance 550 / 550 -210 / -210 Weight 118 kg Intake: IV 1000 / 1000 D5W Inj 1,000 ML @ 42 mls/hr IV 1000 / 1000 .CONT .[id number] Rx#:[id number] Oral 240 / 240 Output: Urine 450 / 450 Urine Amount (Catheter) 450 / 450 Indwelling Urethral Catheter 450 / 450 Other: Date of Last Bowel Movement 03/22/18 - Constitutional no acute distress - Routine HEENT Exam Head: Present: normocephalic Eye: Present: PERRL ENT: Present: mucous membranes moist - Routine Neck Exam Present: supple - Routine Respiratory Exam Present: decreased breath sounds - Routine Cardiovascular Exam Present: RRR. Absent: murmur, gallop, rubs - Routine Abdominal Exam Present: soft - Routine Extremities Exam Present: pulses intact, normal capillary refill - Routine Neurological Exam Present: oriented X3 - Detailed Neurological Exam: Coma Scale Eye Opening: Spontaneous Verbal Response: Oriented Motor Response: Obey commands Prosperity Coma Scale Total: 15 - Routine Psychiatric Exam Present: normal affect - Urinary Catheter Management Indwelling Urethral Catheter Cath placed during this visit: yes Urethral indwelling: Yes Reason for continuing: Acute urinary retention Insertion date: 03/21/18 Insertion time: 12:00 Straight Cath placed during this visit: no Reason for continuing: Acute urinary retention Assessment and Plan - Assessment (1) Chest pain, atypical Code(s): R07.89 - Other chest pain Status: Acute (2) COPD (chronic obstructive pulmonary disease) Code(s): J44.9 - Chronic obstructive pulmonary disease, unspecified Status: Acute (3) Hypotension Code(s): I95.9 - Hypotension, unspecified Status: Acute (4) Dyspnea Code(s): R06.00 - Dyspnea, unspecified Status: Acute (5) Cardiomyopathy Code(s): I42.9 - Cardiomyopathy, unspecified Status: Acute (6) Congestive heart failure (CHF) Code(s): I50.9 - Heart failure, unspecified Status: Acute (7) Obesity Code(s): E66.9 - Obesity, unspecified Status: Acute (8) Renal insufficiency Code(s): N28.9 - Disorder of kidney and ureter, unspecified Status: Acute - Plan Pt currently in SR on monitor. Continue to monitor blood pressure and heart rate. Continue with current cardiac treatment and diuresis. Increase activities as tolerated. Pt up in chair in no acute distress. Nephrology evaluation in progress along with palliative care. Will continue to follow patient during hospitalization. Procedures - Arterial Line Size (Gauge): 18 <Quadrat,Otakar - Last Filed: 03/23/18 20:16> Physical Exam Vital signs: Vital Signs 03/22/18 21:00 03/22/18 21:07 03/22/18 21:08 Temperature Pulse Rate 94 H 91 H Respiratory Rate 18 Blood Pressure Pulse Oximetry 96 03/22/18 22:00 03/22/18 23:00 03/23/18 00:00 Temperature 98.6 F Pulse Rate 78 74 66 Respiratory Rate 20 Blood Pressure 123/60 Pulse Oximetry 95 03/23/18 00:44 03/23/18 01:00 03/23/18 02:00 Temperature Pulse Rate 67 68 68 Respiratory Rate 20 Blood Pressure Pulse Oximetry 03/23/18 03:00 03/23/18 04:00 03/23/18 05:00 Temperature 98.1 F Pulse Rate 70 71 68 Respiratory Rate 20 Blood Pressure 143/63 H Pulse Oximetry 95 03/23/18 06:00 03/23/18 07:00 03/23/18 08:00 Temperature 98.9 F Pulse Rate 70 70 72 Respiratory Rate 20 Blood Pressure 131/60 Pulse Oximetry 94 L 03/23/18 09:00 03/23/18 10:00 03/23/18 11:00 Temperature 98.6 F Pulse Rate 65 67 61 Respiratory Rate 20 Blood Pressure 100/51 L Pulse Oximetry 98 03/23/18 12:00 03/23/18 13:00 03/23/18 14:00 Temperature Pulse Rate 60 82 82 Respiratory Rate Blood Pressure Pulse Oximetry 03/23/18 15:00 03/23/18 16:00 03/23/18 16:13 Temperature 97.9 F Pulse Rate 66 66 71 Respiratory Rate 20 18 Blood Pressure 104/53 L Pulse Oximetry 97 03/23/18 16:14 03/23/18 17:00 03/23/18 18:00 Temperature Pulse Rate 66 74 Respiratory Rate Blood Pressure Pulse Oximetry 98 Intake & Output 03/23/18 03/23/18 03/24/18 06:59 18:59 06:59 Intake Total 240 / 240 2019 / 2019 Output Total 450 / 450 700 / 700 Balance -210 / -210 1320 / 1320 Weight 260 lb 2.327 oz Intake: IV 1000 / 1000 D5W Inj 1,000 ML @ 42 mls/hr IV 1000 / 1000 .CONT .[id number] [facility] Rx#:[id number] Oral 240 / 240 1020 / 1020 Output: Urine 450 / 450 Urine Amount (Catheter) 600 / 600 Indwelling Urethral Catheter 600 / 600 Stool Amount (Stoma) 100 / 100 Pre-Hospital: Left Lower 100 / 100 Abdomen Other: Date of Last Bowel Movement 03/22/18 - Urinary Catheter Management Indwelling Urethral Catheter Cath placed during this visit: no Straight Cath placed during this visit: no Assessment and Plan - Assessment (1) Chest pain, atypical Code(s): R07.89 - Other chest pain Status: Acute (2) COPD (chronic obstructive pulmonary disease) Code(s): J44.9 - Chronic obstructive pulmonary disease, unspecified Status: Acute (3) Hypotension Code(s): I95.9 - Hypotension, unspecified Status: Acute (4) Dyspnea Code(s): R06.00 - Dyspnea, unspecified Status: Acute (5) Cardiomyopathy Code(s): I42.9 - Cardiomyopathy, unspecified Status: Acute (6) Congestive heart failure (CHF) Code(s): I50.9 - Heart failure, unspecified Status: Acute (7) Obesity Code(s): E66.9 - Obesity, unspecified Status: Acute (8) Renal insufficiency Code(s): N28.9 - Disorder of kidney and ureter, unspecified Status: Acute - Attending Attestation Patient seen and examined. I reviewed and agree with the evaluation and plan as presented. Continue monitoring. Increase activity, PT.
--- NOTE | 2018-03-23 15:51 | P.DIET ---
Nutritional Evaluation Type of nutrition evaluation: follow-up Nutrition consult regarding: Tube Feeding, Diet Evaluation Objective - Diagnosis Respiratory Failure, Shock - Objective % IBW: 97 Body Weight Used for Calculations: IBW (78kg) Energy Needs - Lower Range (kCal/kg): 25 Energy Needs - Upper Range (kCal/kg): 30 Lower Limit kCal/kg (kCals): 1,950 Upper Limit kCal/kg (kCals): 2,340 Lower Limit Protein Factor (Grams per Kg): 1.0 Upper Limit Protein Factor (Grams per Kg): 1.2 Lower Protein Needs (Protein): 78 Upper Protein Needs (Protein): 94 Dietitian Reviewed in Medical Record: Current diet, Curent medications, Intake & Output, Labs Diet Order: Cardiac Mech Soft w/chopped meats Oral Diet Intake Amount: Fair 50-75% Speech Therapy Recommendations: Yes Objective Comments: PMH: AFib, Colon CA s/p colostomy, COPD, Hyperlipidemia, HTN Meds include: Lasix, Reglan Labs include: Cr 3.19, Glucose 131 +1BM 03/22, UOP 450ml Assessment Assessment: Pt continues to be at nutritional risk r/t current clinical status. Pt extubated 03/16 and is now on a mech soft diet per speech. Pt's po intake has been 50-75% but only recorded for 2 days. Will continue to monitor po intake and provide supplements if needed. Recommendations: Cardiac Mech Soft Diet with chopped meats Dietitian to Monitor: Lab values, Electrolytes, Renal labs, Intake & Output, Diet tolerance, Weight change, PO Intake, Medical course
[2018-03-23] MEDS ORDERED: Chlorothiazide Inj 500 MG Vial IV.PUSH ONE (16:46)
--- NOTE | 2018-03-23 16:51 | P.PNNP ---
Subjective Interval history: Patient with no verbal complaints. Physical Exam Vital signs: Vital Signs 03/22/18 17:15 03/22/18 20:00 03/22/18 21:00 Temperature 99.7 F H Pulse Rate 78 87 94 H Respiratory Rate 20 Blood Pressure 154/66 H Pulse Oximetry 98 03/22/18 21:07 03/22/18 21:08 03/22/18 22:00 Temperature Pulse Rate 91 H 78 Respiratory Rate 18 Blood Pressure Pulse Oximetry 96 03/22/18 23:00 03/23/18 00:00 03/23/18 00:44 Temperature 98.6 F Pulse Rate 74 66 67 Respiratory Rate 20 20 Blood Pressure 123/60 Pulse Oximetry 95 03/23/18 01:00 03/23/18 02:00 03/23/18 03:00 Temperature Pulse Rate 68 68 70 Respiratory Rate Blood Pressure Pulse Oximetry 03/23/18 04:00 03/23/18 05:00 03/23/18 06:00 Temperature 98.1 F Pulse Rate 71 68 70 Respiratory Rate 20 Blood Pressure 143/63 H Pulse Oximetry 95 03/23/18 07:00 03/23/18 08:00 03/23/18 09:00 Temperature 98.9 F Pulse Rate 70 72 65 Respiratory Rate 20 Blood Pressure 131/60 Pulse Oximetry 94 L 03/23/18 10:00 03/23/18 11:00 03/23/18 12:00 Temperature 98.6 F Pulse Rate 67 61 60 Respiratory Rate 20 Blood Pressure 100/51 L Pulse Oximetry 98 03/23/18 13:00 03/23/18 14:00 03/23/18 15:00 Temperature 97.9 F Pulse Rate 82 82 66 Respiratory Rate 20 Blood Pressure 104/53 L Pulse Oximetry 97 03/23/18 16:13 03/23/18 16:14 Temperature Pulse Rate 71 Respiratory Rate 18 Blood Pressure Pulse Oximetry 98 Intake & Output 03/22/18 03/23/18 03/23/18 18:59 06:59 18:59 Intake Total 1000 / 1000 240 / 240 Output Total 450 / 450 450 / 450 Balance 550 / 550 -210 / -210 Weight 118 kg Intake: IV 1000 / 1000 D5W Inj 1,000 ML @ 42 mls/hr IV 1000 / 1000 .CONT .[id number] [facility] Rx#:[id number] Oral 240 / 240 Output: Urine 450 / 450 Urine Amount (Catheter) 450 / 450 Indwelling Urethral Catheter 450 / 450 Other: Date of Last Bowel Movement 03/22/18 03/22/18 Narrative: GENERAL: Appears clinically debilitated. SKIN: Warm and dry. HEAD: Normocephalic. EYES: No scleral icterus. No injection or drainage. NECK: Supple, trachea midline. No JVD or lymphadenopathy. CARDIOVASCULAR: Regular rate and rhythm without murmurs, gallops, or rubs. RESPIRATORY: Breath sounds equal bilaterally. No accessory muscle use. Occasional expiratory wheeze. GASTROINTESTINAL: Abdomen soft, non-tender, nondistended. MUSCULOSKELETAL: No cyanosis, 2+ pitting edema extending to the knees bilaterally.. BACK: Nontender without obvious deformity. No CVA tenderness. - Urinary Catheter Management Indwelling Urethral Catheter Cath placed during this visit: yes Urethral indwelling: Yes Reason for continuing: Acute urinary retention Insertion date: 03/21/18 Insertion time: 12:00 Straight Cath placed during this visit: no Reason for continuing: Acute urinary retention Assessment and Plan - Assessment (1) Acute renal insufficiency Code(s): N28.9 - Disorder of kidney and ureter, unspecified Status: Acute Plan: Renal indices stable from yesterday but still indicating severe renal insufficiency as discussed with family. Continue furosemide with a dose of Diuril today. Urine output fair. Possible conversion to p.o. diuretics tomorrow. Medications should be adjusted for the patient's estimated GFR if clinically indicated. Avoid agents with significant potential for nephrotoxicity possible including NSAIDs for analgesia, iodine contrast agents. Gadolinium is contraindicated if the GFR is below 30. (2) Hypertension Code(s): I10 - Essential (primary) hypertension Status: Acute Plan: Patient's blood pressure at lower limit. Will discontinue amlodipine at this time and monitor. Procedures - Arterial Line Size (Gauge): 18
[2018-03-23] MEDS: Dextrose 5% in Water Inj 1,000 ML IV.CONT SCH (17:17)
--- NOTE | 2018-03-23 17:38 | MB ---
cc: Jayme Mcneiln Duy DATE: 03/23/2018 HISTORY OF PRESENT ILLNESS: This is a pleasant 82-year-old male who presented with hypotension and mental status changes. He was found to be in acute renal failure with creatinine of 2.5, with his baseline ranging at 1.3-0.8 in 01/2018. In 12/2017, he underwent a laparoscopic colectomy with end colostomy by Dr. Asher for colon cancer. He does admit to a history of nocturia 3-4 times at night with a moderate stream. He denies any gross hematuria, stones or blood in his urine. A Barker catheter is presently in place and draining clear urine and he is presently awake and alert and oriented. His daughter is presently at the bedside. PAST MEDICAL HISTORY: Includes atrial fibrillation, COPD, colon cancer, hyperlipidemia and hypertension, lower urinary tract symptoms. PAST SURGICAL HISTORY: Noted for recent colectomy performed by Dr. Asher. REVIEW OF SYSTEMS: He denies chest pain at present. Denies shortness of breath. Denies abdominal pain. Denies diarrhea or constipation. Denies urinary tract infections. Denies blood in his urine. Denies gait disturbances, bleeding disorders or psychiatric problems. PHYSICAL EXAMINATION: VITAL SIGNS: Temperature 97.9, heart rate 71, respiratory rate 18, blood pressure 104/53. GENERAL: He is a well-developed, well-nourished 82-year-old male in no acute distress. HEENT: Normocephalic, atraumatic. Pupils equal, round, regular and reactive to light. Extraocular movements intact. NECK: Supple. HEART: Regular rate and rhythm. LUNGS: Clear. ABDOMEN: Soft, nontender, nondistended. Colostomy located on the left side of the abdomen. GENITOURINARY: Normal phallus, uncircumcised. Barker catheter in place, draining clear urine. Testes descended. EXTREMITIES: Show no evidence of cyanosis, clubbing, or edema. NEUROLOGIC: Cranial nerves 2-12 are intact. LABORATORY DATA: White count 21.9, hemoglobin 14.1, hematocrit 44.1, platelet count of 161. Sodium 138, potassium 3.8, chloride 98, CO2 of 32.6, BUN of 74, creatinine 3.19, glucose of 131. Urinalysis shows 43 red cells, 2 white cells. IMAGING STUDIES: CT scan of the abdomen and pelvis shows gallstones, minimal nonspecific free peritoneal fluid, mild infiltrate of the lung bases. Kidneys with bilateral renal cysts, no hydronephrosis. Bladder is decompressed with a Barker catheter in place. ASSESSMENT AND PLAN: This 82-year-old male presented with hypotension, acute renal failure with mental status changes. We will maintain Barker catheter for now and would encourage physical therapy. Follow creatinine. Barker trial next week. Thank you for the consultation and allowing me the opportunity to participate in the care of this patient. DO MILES Leahy/DB , 05:15 PM , 05:25 PM
[2018-03-24] MEDS: Chlorhexidine 0.12% Oral Kit 15 ML UDC OROPHARYNG SCH ×3 (03:54→21:24)
[2018-03-24] MEDS: RESP: Levalbuterol 1.25 MG/3 ML Neb (SCH) NEB ×3 (05:17→15:56)
[2018-03-24 06:20] LABS: Calcium 8.5 mg/dL (8.5-10.1); Carbon Dioxide 27.8 meq/L (21.0-32.0); Potassium 3.7 meq/L (3.5-5.1)
--- NOTE | 2018-03-24 08:21 | P.PN ---
Subjective Interval history: telemetry- back in hard of hearing=- no complains states he has walker at home Physical Exam Vital signs: Vital Signs 03/23/18 09:00 03/23/18 10:00 03/23/18 11:00 Temperature 98.6 F Pulse Rate 65 67 61 Respiratory Rate 20 Blood Pressure 100/51 L Pulse Oximetry 98 03/23/18 12:00 03/23/18 13:00 03/23/18 14:00 Temperature Pulse Rate 60 82 82 Respiratory Rate Blood Pressure Pulse Oximetry 03/23/18 15:00 03/23/18 16:00 03/23/18 16:13 Temperature 97.9 F Pulse Rate 66 66 71 Respiratory Rate 20 18 Blood Pressure 104/53 L Pulse Oximetry 97 03/23/18 16:14 03/23/18 17:00 03/23/18 18:00 Temperature Pulse Rate 66 74 Respiratory Rate Blood Pressure Pulse Oximetry 98 03/23/18 19:00 03/23/18 20:00 03/23/18 21:00 Temperature 98.6 F Pulse Rate 72 72 78 Respiratory Rate 18 Blood Pressure 164/70 H Pulse Oximetry 90 L 03/23/18 21:36 03/23/18 21:37 03/23/18 22:00 Temperature Pulse Rate 73 72 Respiratory Rate 24 Blood Pressure Pulse Oximetry 94 L 03/23/18 23:00 03/24/18 00:00 03/24/18 01:00 Temperature 97.9 F Pulse Rate 83 66 68 Respiratory Rate 20 Blood Pressure 158/69 H Pulse Oximetry 93 L 03/24/18 02:00 03/24/18 03:00 03/24/18 04:00 Temperature 98.5 F Pulse Rate 75 69 72 Respiratory Rate 22 Blood Pressure 140/62 Pulse Oximetry 94 L 03/24/18 05:00 03/24/18 06:00 Temperature Pulse Rate 68 66 Respiratory Rate Blood Pressure Pulse Oximetry Intake & Output 03/23/18 03/24/18 03/24/18 18:59 06:59 18:59 Intake Total 2019 Output Total 700 / 700 0 / 0 Balance 1320 / 1320 0 / 0 Weight 115 kg Intake: IV 1000 / 1000 D5W Inj 1,000 ML @ 42 mls/hr IV 1000 / 1000 .CONT .[id number] [facility] Rx#:[id number] Oral 1020 / 1020 Output: Stool 0 / 0 Urine Amount (Catheter) 600 / 600 Indwelling Urethral Catheter 600 / 600 Stool Amount (Stoma) 100 / 100 Pre-Hospital: Left Lower 100 / 100 Abdomen Other: Date of Last Bowel Movement 03/22/18 03/22/18 # Bowel Movements 0 # Incontinent Bowel Movements 0 Narrative: awake and alert, hard of hearing, om 02, oriented to person and place anicteric neck supple lungs- decrease breth sounds regular rhythm on exam abdomen soft, nontender extremities + pretibial edema moves all extremities spontaenously - Urinary Catheter Management Indwelling Urethral Catheter Cath placed during this visit: yes Urethral indwelling: Yes Reason for continuing: Acute urinary retention Insertion date: 03/21/18 Insertion time: 12:00 Straight Cath placed during this visit: no Reason for continuing: Acute urinary retention Results - Labs CBC & Chem 7: 03/21/18 04:07 03/24/18 04:43 Laboratory Results - last 24 hr 03/24/18 04:43 Sodium 134 L Potassium 3.7 Chloride 94 L Carbon Dioxide 27.8 Anion Gap 12 BUN 84 H Creatinine 3.97 H Estimated GFR 15 L Random Glucose 111 H Calcium 8.5 Microbiology 03/21/18 12:45 Catheterized Urine Urine Culture - Final No growth in 48 hours Assessment and Plan - Plan 82yM with resolving severe multiorgan failure. now with afib RVR likely from electrolyte disturbances and volume overload. appreciate palliative care consultation. clinically improving. could still use some diuresis and needs aggressive physical therapy. Paroxysmal Atrial fibrillation with rapid ventricular response-03/18-- in and out of a fib- now a fib again 03/23- this am 03/24- SR Uncontrolled HYpertension- improved Cardiomyopathy - EF 35% - Coreg 50 mg po bid, amlodipine 5 mg daily- held yesterday due to soft BP- 03/23 - restarted Coreg at 25 mg po bid - monitor and adjust - on amiodarone 200 mg po bid - on eliquis 2.5 mg po bid- started 03/22 - Cardiology- ff Acute metabolic encephalopathy - improved - goal RASS 0 - frequent neuro checks Acute Hypoxic Respiratory failure- S/P extubation 03/16 - nc o2 for goal spo2 > 90% - aggressive pulmonary toilet - OOB with PT -DuoNeb scheduled and as needed - increase activity- will do walk test prior to DC if qualifies for home 02 Acute kidney injury superimposed on CKD, unknown stage- stabilizing- non oliguric Hyperkalemia- resolved - renal functions - creatinine up to 3.9 today - decrease LE edema- improving- +pretibial edema - Nephrology ff- IV diuretics per Nephrology -Strict I's and O's, renal functions -Monitor creatinine and electrolytes Acute urinary retention- patient straight cath several times - fajardo finally placed 03/21 - continue on flomax- started 03/21 - Urology saw patient- voiding trial next week, continue fajardo COPD -No exacerbation -DuoNeb scheduled and as needed - lungs- clear Severe metabolic acidosis- resolved. Lactic Acidosis- resolved. -Non-anion gap -CT abdomen and pelvis unremarkable Shock- resolved -Telemetry -2D echo: EF 35%. -Series of troponins and EKGs - negative -off steroids - CBC in am Acute protein calorie malnutrition- moderate Colon cancer s/p resection - tolerating diet needs OOB with PT. Out of bed to chair for all meals CM consult- re- SNF DVT GI prophylaxis -Teds SCDs - on eliquis -Pepcid Code Status: FULL CODE Procedures - Arterial Line Size (Gauge): 18
[2018-03-24] MEDS: Lidocaine 5% Patch T-DERMAL SCH (09:55)
[2018-03-24] MEDS: Amiodarone 200 MG Tablet PO SCH ×2 (09:57→21:16)
[2018-03-24] MEDS: Senna/Docusate Sodium 8.6/50 MG Tablet PO SCH ×2 (09:57→21:17)
[2018-03-24] MEDS: Carvedilol 12.5 MG Tablet PO SCH ×2 (09:58→21:17)
--- NOTE | 2018-03-24 10:24 | P.PNCA ---
<Netta Serna N - Last Filed: 03/24/18 10:17> Subjective Interval history: Pt denies any CP, pressure, palpitations or SOB. Pt c/o feeling very weak. Physical Exam Vital signs: Vital Signs 03/23/18 11:00 03/23/18 12:00 03/23/18 13:00 Temperature 98.6 F Pulse Rate 61 60 82 Respiratory Rate 20 Blood Pressure 100/51 L Pulse Oximetry 98 03/23/18 14:00 03/23/18 15:00 03/23/18 16:00 Temperature 97.9 F Pulse Rate 82 66 66 Respiratory Rate 20 Blood Pressure 104/53 L Pulse Oximetry 97 03/23/18 16:13 03/23/18 16:14 03/23/18 17:00 Temperature Pulse Rate 71 66 Respiratory Rate 18 Blood Pressure Pulse Oximetry 98 03/23/18 18:00 03/23/18 19:00 03/23/18 20:00 Temperature 98.6 F Pulse Rate 74 72 72 Respiratory Rate 18 Blood Pressure 164/70 H Pulse Oximetry 90 L 03/23/18 21:00 03/23/18 21:36 03/23/18 21:37 Temperature Pulse Rate 78 73 Respiratory Rate 24 Blood Pressure Pulse Oximetry 94 L 03/23/18 22:00 03/23/18 23:00 03/24/18 00:00 Temperature 97.9 F Pulse Rate 72 83 66 Respiratory Rate 20 Blood Pressure 158/69 H Pulse Oximetry 93 L 03/24/18 01:00 03/24/18 02:00 03/24/18 03:00 Temperature 98.5 F Pulse Rate 68 75 69 Respiratory Rate 22 Blood Pressure 140/62 Pulse Oximetry 94 L 03/24/18 04:00 03/24/18 05:00 03/24/18 06:00 Temperature Pulse Rate 72 68 66 Respiratory Rate Blood Pressure Pulse Oximetry 03/24/18 07:00 03/24/18 08:00 03/24/18 09:00 Temperature 99 F Pulse Rate 72 74 80 Respiratory Rate 16 Blood Pressure 161/74 H Pulse Oximetry 99 03/24/18 09:27 03/24/18 09:31 Temperature Pulse Rate 68 Respiratory Rate 20 Blood Pressure Pulse Oximetry 98 Intake & Output 03/23/18 03/24/18 03/24/18 18:59 06:59 18:59 Intake Total 2019 Output Total 700 / 700 0 / 0 Balance 1320 / 1320 0 / 0 Weight 115 kg Intake: IV 1000 / 1000 D5W Inj 1,000 ML @ 42 mls/hr IV 1000 / 1000 .CONT .[id number] [facility] Rx#:[id number] Oral 1020 / 1020 Output: Stool 0 / 0 Urine Amount (Catheter) 600 / 600 Indwelling Urethral Catheter 600 / 600 Stool Amount (Stoma) 100 / 100 Pre-Hospital: Left Lower 100 / 100 Abdomen Other: Date of Last Bowel Movement 03/22/18 03/22/18 # Bowel Movements 0 # Incontinent Bowel Movements 0 - Constitutional no acute distress - Routine HEENT Exam Head: Present: normocephalic Eye: Present: PERRL ENT: Present: mucous membranes moist - Routine Neck Exam Present: supple - Routine Respiratory Exam Present: crackles Comments: fine crackles noted in the lower bases bilateral. - Routine Cardiovascular Exam Present: S1, S2. Absent: murmur, gallop, rubs - Routine Abdominal Exam Present: soft - Routine Extremities Exam Present: edema, pulses intact, normal capillary refill Comments: generalized edema that has increased. - Routine Neurological Exam Present: oriented X3 - Detailed Neurological Exam: Coma Scale Eye Opening: Spontaneous Verbal Response: Oriented Motor Response: Obey commands Navneet Coma Scale Total: 15 - Routine Psychiatric Exam Present: normal affect - Urinary Catheter Management Indwelling Urethral Catheter Cath placed during this visit: yes Urethral indwelling: Yes Reason for continuing: Acute urinary retention Insertion date: 03/21/18 Insertion time: 12:00 Straight Cath placed during this visit: no Reason for continuing: Acute urinary retention Assessment and Plan - Assessment (1) Chest pain, atypical Code(s): R07.89 - Other chest pain Status: Acute (2) COPD (chronic obstructive pulmonary disease) Code(s): J44.9 - Chronic obstructive pulmonary disease, unspecified Status: Acute (3) Hypotension Code(s): I95.9 - Hypotension, unspecified Status: Acute (4) Dyspnea Code(s): R06.00 - Dyspnea, unspecified Status: Acute (5) Cardiomyopathy Code(s): I42.9 - Cardiomyopathy, unspecified Status: Acute (6) Congestive heart failure (CHF) Code(s): I50.9 - Heart failure, unspecified Status: Acute (7) Obesity Code(s): E66.9 - Obesity, unspecified Status: Acute (8) Renal insufficiency Code(s): N28.9 - Disorder of kidney and ureter, unspecified Status: Acute - Plan Pt currently in SR on monitor. Continue to monitor blood pressure and heart rate. Chest pain has resolved. Continue therapy for CHF. Continue with current cardiac treatment. Increase activities as tolerated. Renal function is worsening , continue with diuresis. Nephrology evaluation in progress along with palliative care. Will continue to follow patient during hospitalization. The patient was seen and evaluated by Dr. Esparza who participated in care, management and decision making. Procedures - Arterial Line Size (Gauge): 18 <Joel Esparza - Last Filed: 03/24/18 14:03> Physical Exam Vital signs: Vital Signs 03/23/18 15:00 03/23/18 16:00 03/23/18 16:13 Temperature 97.9 F Pulse Rate 66 66 71 Respiratory Rate 20 18 Blood Pressure 104/53 L Pulse Oximetry 97 03/23/18 16:14 03/23/18 17:00 03/23/18 18:00 Temperature Pulse Rate 66 74 Respiratory Rate Blood Pressure Pulse Oximetry 98 03/23/18 19:00 03/23/18 20:00 03/23/18 21:00 Temperature 98.6 F Pulse Rate 72 72 78 Respiratory Rate 18 Blood Pressure 164/70 H Pulse Oximetry 90 L 03/23/18 21:36 03/23/18 21:37 03/23/18 22:00 Temperature Pulse Rate 73 72 Respiratory Rate 24 Blood Pressure Pulse Oximetry 94 L 03/23/18 23:00 03/24/18 00:00 03/24/18 01:00 Temperature 97.9 F Pulse Rate 83 66 68 Respiratory Rate 20 Blood Pressure 158/69 H Pulse Oximetry 93 L 03/24/18 02:00 03/24/18 03:00 03/24/18 04:00 Temperature 98.5 F Pulse Rate 75 69 72 Respiratory Rate 22 Blood Pressure 140/62 Pulse Oximetry 94 L 03/24/18 05:00 03/24/18 06:00 03/24/18 07:00 Temperature 99 F Pulse Rate 68 66 69 Respiratory Rate 16 Blood Pressure 161/74 H Pulse Oximetry 99 03/24/18 08:00 03/24/18 09:00 03/24/18 09:27 Temperature Pulse Rate 70 80 68 Respiratory Rate 20 Blood Pressure Pulse Oximetry 03/24/18 09:31 03/24/18 10:00 03/24/18 11:00 Temperature 98.2 F Pulse Rate 76 71 Respiratory Rate 20 Blood Pressure 148/60 H Pulse Oximetry 98 97 03/24/18 12:00 03/24/18 12:30 03/24/18 13:00 Temperature Pulse Rate 69 70 64 Respiratory Rate Blood Pressure Pulse Oximetry Intake & Output 03/23/18 03/24/18 03/24/18 18:59 06:59 18:59 Intake Total 2019 / 2019 950 / 950 Output Total 700 / 700 0 / 0 Balance 1320 / 1320 0 / 0 950 / 950 Weight 253 lb 8.505 oz Intake: IV 1000 / 1000 950 / 950 D5W Inj 1,000 ML @ 42 mls/hr IV 1000 / 1000 950 / 950 .CONT .[id number] [facility] Rx#:[id number] Oral 1020 / 1020 Output: Stool 0 / 0 Urine Amount (Catheter) 600 / 600 Indwelling Urethral Catheter 600 / 600 Stool Amount (Stoma) 100 / 100 Pre-Hospital: Left Lower 100 / 100 Abdomen Other: Date of Last Bowel Movement 03/22/18 03/22/18 # Bowel Movements 0 # Incontinent Bowel Movements 0 - Urinary Catheter Management Indwelling Urethral Catheter Cath placed during this visit: no Straight Cath placed during this visit: no Assessment and Plan - Assessment (1) Chest pain, atypical Code(s): R07.89 - Other chest pain Status: Acute (2) COPD (chronic obstructive pulmonary disease) Code(s): J44.9 - Chronic obstructive pulmonary disease, unspecified Status: Acute (3) Hypotension Code(s): I95.9 - Hypotension, unspecified Status: Acute (4) Dyspnea Code(s): R06.00 - Dyspnea, unspecified Status: Acute (5) Cardiomyopathy Code(s): I42.9 - Cardiomyopathy, unspecified Status: Acute (6) Congestive heart failure (CHF) Code(s): I50.9 - Heart failure, unspecified Status: Acute (7) Obesity Code(s): E66.9 - Obesity, unspecified Status: Acute (8) Renal insufficiency Code(s): N28.9 - Disorder of kidney and ureter, unspecified Status: Acute - Attending Attestation Patient seen and examined. I reviewed and agree with the evaluation and plan as presented. No recurrent CP. He has significant renal dysfunction, appears to be fluid overloaded, nephrology evaluation in progress. Increase activity, PT.
--- NOTE | 2018-03-24 10:37 | P.PNNP ---
Subjective Interval history: The patient is seen sitting in wheelchair in his room. No family present. Says that he is tired today and having a cough. <GarciaDeb R - Last Filed: 03/24/18 10:29> Physical Exam Vital signs: Vital Signs 03/23/18 11:00 03/23/18 12:00 03/23/18 13:00 Temperature 98.6 F Pulse Rate 61 60 82 Respiratory Rate 20 Blood Pressure 100/51 L Pulse Oximetry 98 03/23/18 14:00 03/23/18 15:00 03/23/18 16:00 Temperature 97.9 F Pulse Rate 82 66 66 Respiratory Rate 20 Blood Pressure 104/53 L Pulse Oximetry 97 03/23/18 16:13 03/23/18 16:14 03/23/18 17:00 Temperature Pulse Rate 71 66 Respiratory Rate 18 Blood Pressure Pulse Oximetry 98 03/23/18 18:00 03/23/18 19:00 03/23/18 20:00 Temperature 98.6 F Pulse Rate 74 72 72 Respiratory Rate 18 Blood Pressure 164/70 H Pulse Oximetry 90 L 03/23/18 21:00 03/23/18 21:36 03/23/18 21:37 Temperature Pulse Rate 78 73 Respiratory Rate 24 Blood Pressure Pulse Oximetry 94 L 03/23/18 22:00 03/23/18 23:00 03/24/18 00:00 Temperature 97.9 F Pulse Rate 72 83 66 Respiratory Rate 20 Blood Pressure 158/69 H Pulse Oximetry 93 L 03/24/18 01:00 03/24/18 02:00 03/24/18 03:00 Temperature 98.5 F Pulse Rate 68 75 69 Respiratory Rate 22 Blood Pressure 140/62 Pulse Oximetry 94 L 03/24/18 04:00 03/24/18 05:00 03/24/18 06:00 Temperature Pulse Rate 72 68 66 Respiratory Rate Blood Pressure Pulse Oximetry 03/24/18 07:00 03/24/18 08:00 03/24/18 09:00 Temperature 99 F Pulse Rate 72 74 80 Respiratory Rate 16 Blood Pressure 161/74 H Pulse Oximetry 99 03/24/18 09:27 03/24/18 09:31 Temperature Pulse Rate 68 Respiratory Rate 20 Blood Pressure Pulse Oximetry 98 Intake & Output 03/23/18 03/24/18 03/24/18 18:59 06:59 18:59 Intake Total 2019 Output Total 700 / 700 0 / 0 Balance 1320 / 1320 0 / 0 Weight 115 kg Intake: IV 1000 / 1000 D5W Inj 1,000 ML @ 42 mls/hr IV 1000 / 1000 .CONT .[id number] [facility] Rx#:[id number] Oral 1020 / 1020 Output: Stool 0 / 0 Urine Amount (Catheter) 600 / 600 Indwelling Urethral Catheter 600 / 600 Stool Amount (Stoma) 100 / 100 Pre-Hospital: Left Lower 100 / 100 Abdomen Other: Date of Last Bowel Movement 03/22/18 03/22/18 # Bowel Movements 0 # Incontinent Bowel Movements 0 - Constitutional no acute distress - Routine Neck Exam Present: supple - Routine Respiratory Exam Present: crackles (bibasilar), distant breath sounds, diminished air movement - Routine Cardiovascular Exam Present: RRR, S1, S2 - Routine Abdominal Exam Present: soft, ostomy - Routine Extremities Exam Present: edema (continued significant edema generalized) - Routine Neurological Exam Present: alert - Urinary Catheter Management Indwelling Urethral Catheter Cath placed during this visit: yes Urethral indwelling: Yes Reason for continuing: Acute urinary retention Insertion date: 03/21/18 Insertion time: 12:00 Straight Cath placed during this visit: no Reason for continuing: Acute urinary retention <Deb Garcia - Last Filed: 03/24/18 10:29> Vital signs: Vital Signs 03/24/18 17:00 03/24/18 18:00 03/24/18 19:00 Temperature 98 F 97.9 F Pulse Rate 67 68 71 Respiratory Rate 18 18 Blood Pressure 118/57 L 122/58 L Pulse Oximetry 94 L 94 L 03/24/18 20:00 03/24/18 20:15 03/24/18 20:25 Temperature Pulse Rate 78 79 Respiratory Rate 18 Blood Pressure Pulse Oximetry 96 96 03/24/18 23:00 03/25/18 03:00 03/25/18 04:00 Temperature 97.5 F L 97.8 F Pulse Rate 66 73 121 H Respiratory Rate 18 18 Blood Pressure 113/56 L 119/60 Pulse Oximetry 94 L 93 L 03/25/18 07:00 03/25/18 08:00 03/25/18 10:21 Temperature Pulse Rate 137 H 137 H 73 Respiratory Rate 12 Blood Pressure Pulse Oximetry 95 07/28/18 14:04 Temperature Pulse Rate 146 H Respiratory Rate Blood Pressure Pulse Oximetry Intake & Output 03/24/18 03/25/18 03/25/18 18:59 06:59 18:59 Intake Total 1430 / 1430 480 / 480 Output Total 400 / 400 700 / 700 Balance 1030 / 1030 -220 / -220 Weight 120.1 kg 117.6 kg Intake: IV 950 / 950 D5W Inj 1,000 ML @ 42 mls/hr IV 950 / 950 .CONT .[id number] [facility] Rx#:[id number] Oral 480 / 480 480 / 480 Output: Urine 700 / 700 Urine Amount (Catheter) 400 / 400 Indwelling Urethral Catheter 400 / 400 Other: Date of Last Bowel Movement 03/22/18 03/22/18 - Urinary Catheter Management Indwelling Urethral Catheter Cath placed during this visit: no Straight Cath placed during this visit: no <Hesham Sims - Last Filed: 03/25/18 16:03> Assessment and Plan - Assessment (1) Acute renal insufficiency Code(s): N28.9 - Disorder of kidney and ureter, unspecified Status: Acute Plan: The patient's renal functions have deteriorated overnight. Etiology unclear. We were hopeful to convert parenteral diuretics to po, but has significant edema. To continue on IV Lasix. Another dose of Diuril tonight. UOP decent. Appreciate Urology consultation. Voiding trials next week. Ordered CXR. Advised the patient that his renal functions may continue to deteriorate. Will continue to monitor thru the weekend. Medications should be adjusted for the patient's estimated GFR if clinically indicated. Avoid agents with significant potential for nephrotoxicity possible including NSAIDs for analgesia, iodine contrast agents. Gadolinium is contraindicated if the GFR is below 30. (2) Hypertension Code(s): I10 - Essential (primary) hypertension Status: Acute Plan: Patient's blood pressure stable at the present (3) COPD (chronic obstructive pulmonary disease) Code(s): J44.9 - Chronic obstructive pulmonary disease, unspecified Status: Acute Plan: CXR ordered Noted leukocytosis. <Deb Garcia - Last Filed: 03/24/18 10:29> - Assessment (1) Acute renal insufficiency Code(s): N28.9 - Disorder of kidney and ureter, unspecified Status: Acute (2) Hypertension Code(s): I10 - Essential (primary) hypertension Status: Acute (3) COPD (chronic obstructive pulmonary disease) Code(s): J44.9 - Chronic obstructive pulmonary disease, unspecified Status: Acute - Attending Attestation The exam, history, and the medical decision-making described in the above note were completed with the assistance of the PARhonda. I reviewed and agree with the findings presented. <Hesham Sims - Last Filed: 03/25/18 16:03> Procedures - Arterial Line Size (Gauge): 18 <Deb Garcia - Last Filed: 03/24/18 10:29>
--- NOTE | 2018-03-24 11:08 | XR ---
EXAM DATE: 03/24/2018 11:03 AM EDT AGE/SEX: 82 years / Male INDICATIONS: Shortness of breath. CLINICAL DATA: This is the patient's subsequent encounter. Patient reports that signs and symptoms h ave been present for 1 day and indicates a pain score of 0/10. MEDICAL/SURGICAL HISTORY: Carcinoma, colon. Chronic obstructive pulmonary disease. None. COMPARISON: [facility], CHEST 1V SINGLE AP, 03/13/2018. . FINDINGS: A single AP erect portable view of the chest was obtained. This demonstrates interval extubation and removal of the nasogastric tube. The left internal jugular central venous line has been removed as we ll. The study is more mid inspiratory. There is patchy airspace disease in the right lung base. Both costophrenic angles are blunted. The heart size remains enlarged. CONCLUSION: 1. Interval extubation with removal of nasogastric tube and left internal jugular central venous minal e. 2. More mid inspiratory exam with airspace disease at the right lung base. 3. Both costophrenic angles are blunted consistent with small effusions. Electronically signed by: Javon Petersen MD 03/24/2018 11:07 AM EDT
[2018-03-24] MEDS ORDERED: Chlorothiazide Inj 500 MG Vial IV.PUSH ONE (13:00)
[2018-03-24] MEDS: Morphine Inj 4 MG/ML Vial IV.PUSH PRN (21:30)
[2018-03-25 07:27] LABS: Baso % (Auto) 0.2 % (0.0-2.0); Eos # (Auto) 0.1 th/mm3 (0.0-0.4); Eos % (Auto) 0.7 % (0.0-4.0); Hematocrit 37.2 % (39.0-51.0); Hemoglobin 11.9 gm/dL (13.0-17.0); Lymph # (Auto) 6.2 th/mm3 (1.0-4.8); Lymph % (Auto) 34.5 % (9.0-44.0); Mean Corpuscular HGB Conc 31.9 % (32.0-36.0); Mean Corpuscular Hemoglobin 20.3 pg (27.0-34.0); Mean Corpuscular Volume 63.6 fL (80.0-100.0); Mean Platelet Volume 8.5 fL (7.0-11.0); Mono # (Auto) 1.2 th/mm3 (0.0-0.9); Mono % (Auto) 6.6 % (0.0-8.0); Neut # (Auto) 10.5 th/mm3 (1.8-7.7); Platelet Count 192 th/mm3 (150-450); Red Blood Count 5.85 mil/mm3 (4.50-5.90); Red Cell Distribution Width 18.9 % (11.6-17.2); White Blood Count 18.1 th/mm3 (4.0-11.0)
[2018-03-25 07:53] LABS: Albumin 2.4 g/dL (3.4-5.0); Calcium 8.6 mg/dL (8.5-10.1); Carbon Dioxide 27.9 meq/L (21.0-32.0); Phosphorus 5.8 mg/dL (2.5-4.9); Potassium 3.6 meq/L (3.5-5.1)
[2018-03-25] MEDS: Amiodarone 200 MG Tablet PO SCH ×2 (08:04→20:34)
[2018-03-25] MEDS: Carvedilol 12.5 MG Tablet PO SCH ×2 (08:04→20:33)
[2018-03-25] MEDS: Senna/Docusate Sodium 8.6/50 MG Tablet PO SCH ×2 (08:05→20:34)
[2018-03-25] MEDS: Chlorhexidine 0.12% Oral Kit 15 ML UDC OROPHARYNG SCH ×2 (08:05→20:34)
[2018-03-25] MEDS: Lidocaine 5% Patch T-DERMAL SCH (08:07)
[2018-03-25 09:03] LABS: Eosinophils 1 % (0-4); Lymphocytes 37 % (9-44); Monocytes 5 % (0-8)
[2018-03-25 09:04] LABS: Ovalocytes 1+; Platelet Estimate Normal (Normal); Platelet Morphology Normal (Normal)
--- NOTE | 2018-03-25 10:40 | P.PNIM ---
Subjective Interval history: Pt seen and examined for f/u of ANISH and CHF. Daughters present in the room. Pt very hard of hearing. Has no complaints. Daughters report he is very weak and cannot get up. RN reports patient not wanting to participate in trying to get out of bed. He denies CP, SOB, wheezing, abdominal pain, N/V. He is eating pizza when I entered the room. His daughters state they had no idea he had to be following a special diet but they agree not to bring him pizza anymore. Physical Exam Vital signs: Vital Signs 03/24/18 11:00 03/24/18 12:00 03/24/18 12:30 Temperature 98.2 F Pulse Rate 71 69 70 Respiratory Rate 20 Blood Pressure 148/60 H Pulse Oximetry 97 03/24/18 13:00 03/24/18 14:00 03/24/18 15:00 Temperature 98 F Pulse Rate 64 67 74 Respiratory Rate 18 Blood Pressure 147/62 H Pulse Oximetry 93 L 03/24/18 15:58 03/24/18 16:00 03/24/18 17:00 Temperature Pulse Rate 78 66 67 Respiratory Rate 16 Blood Pressure Pulse Oximetry 97 03/24/18 18:00 03/24/18 19:00 03/24/18 20:00 Temperature 98 F 97.9 F Pulse Rate 68 71 78 Respiratory Rate 18 18 Blood Pressure 118/57 L 122/58 L Pulse Oximetry 94 L 94 L 03/24/18 20:15 03/24/18 20:25 03/24/18 23:00 Temperature 97.5 F L Pulse Rate 79 66 Respiratory Rate 18 18 Blood Pressure 113/56 L Pulse Oximetry 96 96 94 L 03/25/18 03:00 03/25/18 04:00 03/25/18 07:00 Temperature 97.8 F Pulse Rate 73 121 H 137 H Respiratory Rate 18 Blood Pressure 119/60 Pulse Oximetry 93 L 03/25/18 08:00 03/25/18 10:21 Temperature Pulse Rate 137 H 73 Respiratory Rate 12 Blood Pressure Pulse Oximetry 95 Intake & Output 03/24/18 03/25/18 03/25/18 18:59 06:59 18:59 Intake Total 1430 / 1430 480 / 480 Output Total 400 / 400 700 / 700 Balance 1030 / 1030 -220 / -220 Weight 120.1 kg 117.6 kg Intake: IV 950 / 950 D5W Inj 1,000 ML @ 42 mls/hr IV 950 / 950 .CONT .[id number] [facility] Rx#:[id number] Oral 480 / 480 480 / 480 Output: Urine 700 / 700 Urine Amount (Catheter) 400 / 400 Indwelling Urethral Catheter 400 / 400 Other: Date of Last Bowel Movement 03/22/18 03/22/18 Narrative: GENERAL: WN, WD male resting in bed in [facility]. SKIN: Warm and dry. NECK: Supple no tender LAD or JVD. HEART: Distant heart sounds. Tachycardic. LUNGS: Diminished breath sounds but otherwise clear. ABDOMEN: +BS, soft, NT, ND. EXTREMITIES: Pitting edema up to his thighs and over his UE. NEURO: Awake and alert. Hard of hearing. - Urinary Catheter Management Indwelling Urethral Catheter Cath placed during this visit: yes Urethral indwelling: Yes Reason for continuing: Hourly intake/output Insertion date: 03/21/18 Insertion time: 12:00 Straight Cath placed during this visit: no Reason for continuing: Acute urinary retention Results - Labs CBC & Chem 7: 03/25/18 06:32 03/25/18 06:32 Laboratory Results - last 24 hr 03/25/18 03/25/18 06:32 06:32 WBC 18.1 H RBC 5.85 Hgb 11.9 L Hct 37.2 L MCV 63.6 L MCH 20.3 L MCHC 31.9 L RDW 18.9 H Plt Count 192 MPV 8.5 Prelim Diff (Auto) Slide review pending Neut % (Auto) 58.0 Lymph % (Auto) 34.5 [place] % (Auto) 6.6 Eos % (Auto) 0.7 Baso % (Auto) 0.2 Neut # (Auto) 10.5 H Lymph # (Auto) 6.2 H [place] # (Auto) 1.2 H Eos # (Auto) 0.1 Baso # (Auto) 0.0 WBC Differential Manual diff final Seg Neuts % (Manual) 57 Lymphocytes % (Manual) 37 Monocytes % (Manual) 5 Eosinophils % (Manual) 1 Abs Neuts (Manual) 10.3 H Differential Comment . Platelet Estimate Normal Platelet Morphology Normal Ovalocytes 1+ H Sodium 132 L Potassium 3.6 Chloride 92 L Carbon Dioxide 27.9 Anion Gap 12 BUN 95 H Creatinine 4.89 H Estimated GFR 11 L Random Glucose 96 Calcium 8.6 Phosphorus 5.8 H Albumin 2.4 L - Imaging Impressions Chest X-Ray 03/24/18 00:00 CONCLUSION: 1. Interval extubation with removal of nasogastric tube and left internal jugular central venous line. 2. More mid inspiratory exam with airspace disease at the right lung base. 3. Both costophrenic angles are blunted consistent with small effusions. Assessment and Plan - Assessment (1) Acute renal insufficiency Code(s): N28.9 - Disorder of kidney and ureter, unspecified Status: Acute (2) Respiratory failure Code(s): J96.90 - Respiratory failure, unspecified, unspecified whether with hypoxia or hypercapnia Status: Acute (3) COPD (chronic obstructive pulmonary disease) Code(s): J44.9 - Chronic obstructive pulmonary disease, unspecified Status: Acute - Plan 82 YOWM with parxosysmal atrial fibrillation, HTN, CKD, and COPD admitted 03/11 after he presented to the ER with complaints of "not feeling well" and found to be in multiorgan failure requiring emergent intubation and pressors. 1. ANISH superimposed on CKD - Renal indices continuing to decline and patient remains fluid overloaded - Nephrology following - Pt may need HD - Continue aggressive diureses - Avoid nephrotoxic agents - Renally dose meds 2. Acute hypoxic respiratory failure, COPD - Intubated 03/11-03/16 - Supplemental O2 PRN - Continue scheduled Atrovent nebs 2. CHF - 2D echo with EF 35% - Counseled patient and family on sodium and fluid restriction 3. HTN - Continue hydralazine and Coreg - Clonidine PRN 4. Paroxysmal atrial fibrillation with RVR - Cardiology following - On amiodarone and Coreg - Continue Eliquis 5. Urinary retention - Urology consulted; keep Barker and plan on voiding trial next week - Continue Flomax 6. COPD - Not in acute exacerbation - Bronchodilators PRN - Supplemental O2 PRN Pt with multiple comorbid conditions and worsening renal function. Palliative care following. Consult roller printing supervisor to talk to patient and family about appropriate cardiac and renal diets. DVT prophylaxis: On Eliquis Code Status: FULL Discussed Condition With: Pt and his daughters Discharge Planning: Pending further eval of his kidney function which continues to deteriorate, may need hemodialysis Procedures - Arterial Line Size (Gauge): 18
[2018-03-25] MEDS ORDERED: Metoprolol Inj 5 MG/5 ML Vial IV.PUSH ONE (14:30)
--- NOTE | 2018-03-25 14:51 | ECG ---
Date Performed: 03/23/2018 Time Performed: 15:00:10 PTAGE: 82 years EKG: Sinus rhythm with PAC(s) Short QT interval Left axis deviation Anteroseptal T wave changes are nonspecific Since previous tracing, no significant change noted Borderline ECG PREVIOUS TRACING : 03/18/2018 12.47 DOCTOR: Jeb Hughes Interpretating Date/Time 03/25/2018 14:49:22
--- NOTE | 2018-03-25 16:08 | P.PNNP ---
Subjective Interval history: Patient appears to be alert responding to questions appropriately. Physical Exam Vital signs: Vital Signs 03/24/18 17:00 03/24/18 18:00 03/24/18 19:00 Temperature 98 F 97.9 F Pulse Rate 67 68 71 Respiratory Rate 18 18 Blood Pressure 118/57 L 122/58 L Pulse Oximetry 94 L 94 L 03/24/18 20:00 03/24/18 20:15 03/24/18 20:25 Temperature Pulse Rate 78 79 Respiratory Rate 18 Blood Pressure Pulse Oximetry 96 96 03/24/18 23:00 03/25/18 03:00 03/25/18 04:00 Temperature 97.5 F L 97.8 F Pulse Rate 66 73 121 H Respiratory Rate 18 18 Blood Pressure 113/56 L 119/60 Pulse Oximetry 94 L 93 L 03/25/18 07:00 03/25/18 08:00 03/25/18 10:21 Temperature Pulse Rate 137 H 137 H 73 Respiratory Rate 12 Blood Pressure Pulse Oximetry 95 03/25/18 14:04 Temperature Pulse Rate 146 H Respiratory Rate Blood Pressure Pulse Oximetry Intake & Output 03/24/18 03/25/18 03/25/18 18:59 06:59 18:59 Intake Total 1430 / 1430 480 / 480 Output Total 400 / 400 700 / 700 Balance 1030 / 1030 -220 / -220 Weight 120.1 kg 117.6 kg Intake: IV 950 / 950 D5W Inj 1,000 ML @ 42 mls/hr IV 950 / 950 .CONT .[id number] [facility] Rx#:[id number] Oral 480 / 480 480 / 480 Output: Urine 700 / 700 Urine Amount (Catheter) 400 / 400 Indwelling Urethral Catheter 400 / 400 Other: Date of Last Bowel Movement 03/22/18 03/22/18 Narrative: GENERAL: Except for some impairment in auditory acuity the patient is responding to questions appropriately and he appears to be comprehending discussion in regard to his acute renal insufficiency. SKIN: Warm and dry. HEAD: Normocephalic. EYES: No scleral icterus. No injection or drainage. NECK: Supple, trachea midline. No JVD or lymphadenopathy. CARDIOVASCULAR: Regular rate and rhythm without murmurs, gallops, or rubs. RESPIRATORY: Breath sounds equal bilaterally. No accessory muscle use. GASTROINTESTINAL: Abdomen soft, non-tender, nondistended. MUSCULOSKELETAL: No cyanosis, 2+ pitting edema feet, 1+ pitting edema dependent thighs. 1+ pitting edema forearms. - Urinary Catheter Management Indwelling Urethral Catheter Cath placed during this visit: yes Urethral indwelling: Yes Reason for continuing: Hourly intake/output Insertion date: 03/21/18 Insertion time: 12:00 Straight Cath placed during this visit: no Reason for continuing: Acute urinary retention Assessment and Plan - Assessment (1) Acute renal insufficiency Code(s): N28.9 - Disorder of kidney and ureter, unspecified Status: Acute Plan: The patient's renal function appears to be deteriorating progressively again. The patient still has evidence of significant fluid retention clinically and is not dehydrated. Initially there was an improvement in his renal indices from admission but then subsequently his renal function appeared to start deteriorating again after he developed atrial fibrillation with a rapid ventricular rate. I suspect that this may have inflicted additional injury to previous ATN related to reduction in renal perfusion from atrial fibrillation. A Barker catheter is in place however we will do renal ultrasound to exclude an occult obstruction. I discussed with his daughter and family member the recurrence of worsening azotemia and if this continues over the next 24-48 hours we may have to consider initiating renal replacement therapy i.e. dialysis. I indicated to them and the patient that if dialysis is initiated it may only be required temporarily but I cannot guarantee this. They were counseled regarding the procedure of dialysis catheter placement as well as dialysis itself. Indications for, alternatives to and risks associated with dialysis which can include hemorrhage, infection, hypotension, arrhythmia and were reviewed with them also. Medications should be adjusted for the patient's estimated GFR if clinically indicated. Avoid agents with significant potential for nephrotoxicity possible including NSAIDs for analgesia, iodine contrast agents. Gadolinium is contraindicated if the GFR is below 30. (2) Hypertension Code(s): I10 - Essential (primary) hypertension Status: Acute Plan: Patient's blood pressure stable at the present (3) COPD (chronic obstructive pulmonary disease) Code(s): J44.9 - Chronic obstructive pulmonary disease, unspecified Status: Acute Procedures - Arterial Line Size (Gauge): 18
--- NOTE | 2018-03-25 18:08 | US ---
EXAM DATE: 03/25/2018 5:50 PM EDT AGE/SEX: 82 years / Male INDICATIONS: Increased BUN/Creatnine. CLINICAL DATA: This is the patient's initial encounter. Patient reports that signs and symptoms have been present for 1 day and indicates a pain score of 0/10. MEDICAL/SURGICAL HISTORY: Chronic obstructive pulmonary disease. Hypertension. Atrial fibrilla tion. Arthritis. Colon cancer. Diabetes. Hyperlipidemia. Polyneuropathy. . Colostomy. Nasal surgery. Umbilical hernia repair. Unicondylar arthoplasty of right knee. Bilateral cataract surgery. COMPARISON: [facility] [place]EL[place]/O CONTRAST, 03/12/2018. . MEASUREMENTS: Right Kidney:__13.6 x 6.0 x 6.4 cm Left Kidney:__11.9 x 4.2 x 6.4 cm FINDINGS: Right Kidney: Multiple simple cysts are present the largest measures 5.8 cm upper pole. There is slig ht hydronephrosis. In the region of the distal ureter on the right side is an echogenic area measures almost 2 cm in size only questionable for stone could potentially be artifactual related to adjacent bowel. . Left Kidney: Simple cyst is present measures 3.6 cm in upper pole. Bladder: Within normal limits given the degree of distension. CONCLUSION: 1. There are cysts in the kidneys and minimal prominence of the right renal pelvis. Questionable sto ne distal ureter versus artifact from adjacent bowel could be further characterized with noncontrast CT examination based on clinical grounds. Electronically signed by: Neto Wolfe MD 03/25/2018 6:07 PM EDT
[2018-03-26] MEDS: Carvedilol 12.5 MG Tablet PO SCH ×2 (08:35→20:11)
[2018-03-26] MEDS: Senna/Docusate Sodium 8.6/50 MG Tablet PO SCH ×2 (08:35→20:11)
[2018-03-26] MEDS: Amiodarone 200 MG Tablet PO SCH ×2 (08:35→20:11)
[2018-03-26] MEDS: Chlorhexidine 0.12% Oral Kit 15 ML UDC OROPHARYNG SCH ×2 (08:36→19:31)
[2018-03-26] MEDS: Lidocaine 5% Patch T-DERMAL SCH (08:37)
[2018-03-26 09:35] LABS: Hematocrit 34.3 % (39.0-51.0); Hemoglobin 10.9 gm/dL (13.0-17.0); Mean Corpuscular HGB Conc 31.9 % (32.0-36.0); Mean Corpuscular Volume 62.6 fL (80.0-100.0); Mean Platelet Volume 8.8 fL (7.0-11.0); Platelet Count 212 th/mm3 (150-450); Red Blood Count 5.48 mil/mm3 (4.50-5.90); Red Cell Distribution Width 18.3 % (11.6-17.2)
[2018-03-26 10:05] LABS: Calcium 7.9 mg/dL (8.5-10.1); Carbon Dioxide 27.7 meq/L (21.0-32.0); Potassium 3.7 meq/L (3.5-5.1)
--- NOTE | 2018-03-26 10:50 | P.PNIM ---
Subjective Interval history: Pt seen and examined for f/u ANISH. Daughters are present in the room. Renal function continuing to decline and UOP decreasing. Pt has no new complaints other than continued weakness and inability to sit up or get out of bed. Denies CP, SOB. Continues to have significant edema of his extremities. Physical Exam Vital signs: Vital Signs 03/25/18 11:00 03/25/18 14:04 03/25/18 15:00 Temperature 97.9 F 97.8 F Pulse Rate 82 146 H 72 Respiratory Rate 18 18 Blood Pressure 132/58 L 130/64 Pulse Oximetry 95 97 03/25/18 16:03 03/25/18 19:55 03/25/18 20:00 Temperature 98.0 F Pulse Rate 68 74 62 Respiratory Rate 12 20 Blood Pressure 140/67 Pulse Oximetry 95 03/25/18 22:06 03/25/18 23:47 03/26/18 00:00 Temperature 98.2 F Pulse Rate 65 72 Respiratory Rate 18 Blood Pressure 134/63 Pulse Oximetry 96 94 L 03/26/18 03:00 03/26/18 03:49 03/26/18 04:00 Temperature 98.1 F Pulse Rate 78 73 Respiratory Rate 20 18 Blood Pressure 146/65 H Pulse Oximetry 94 L 03/26/18 04:14 03/26/18 07:00 03/26/18 09:15 Temperature Pulse Rate 65 77 78 Respiratory Rate 20 12 12 Blood Pressure Pulse Oximetry 95 Intake & Output 03/25/18 03/26/18 03/26/18 18:59 06:59 18:59 Intake Total 480 / 480 360 / 360 Output Total 600 / 600 Balance -120 / -120 360 / 360 Weight 117.5 kg Intake: Oral 480 / 480 360 / 360 Output: Urine Amount (Catheter) 600 / 600 Indwelling Urethral Catheter 600 / 600 Other: # Voids 300 Date of Last Bowel Movement 03/22/18 03/22/18 # Bowel Movements 0 Narrative: GENERAL: WN, WD male resting in bed in [place]. SKIN: Warm and dry. NECK: Supple no tender LAD or JVD. HEART: Distant heart sounds. Tachycardic. LUNGS: Diminished breath sounds but otherwise clear. ABDOMEN: +BS, soft, NT, ND. EXTREMITIES: Pitting edema up to his thighs and over his UE. NEURO: Awake and alert. Hard of hearing. - Urinary Catheter Management Indwelling Urethral Catheter Cath placed during this visit: yes Urethral indwelling: Yes Reason for continuing: Acute urinary retention Insertion date: 03/21/18 Insertion time: 12:00 Straight Cath placed during this visit: no Reason for continuing: Acute urinary retention Results - Labs CBC & Chem 7: 03/26/18 08:05 03/26/18 08:05 Laboratory Results - last 24 hr 03/26/18 03/26/18 08:05 08:05 WBC 16.0 H RBC 5.48 Hgb 10.9 L Hct 34.3 L MCV 62.6 L MCH 20.0 L MCHC 31.9 L RDW 18.3 H Plt Count 212 MPV 8.8 Sodium 134 L Potassium 3.7 Chloride 93 L Carbon Dioxide 27.7 Anion Gap 13 BUN 111 H Creatinine 5.78 H Estimated GFR 9 L Random Glucose 101 Calcium 7.9 L Total Protein (PEP) 5.4 L - Imaging Impressions Abdomen/Bladder Ultrasound 03/25/18 00:00 CONCLUSION: 1. There are cysts in the kidneys and minimal prominence of the right renal pelvis. Questionable stone distal ureter versus artifact from adjacent bowel could be further characterized with noncontrast CT examination based on clinical grounds. Assessment and Plan - Assessment (1) Acute renal insufficiency Code(s): N28.9 - Disorder of kidney and ureter, unspecified Status: Acute (2) Respiratory failure Code(s): J96.90 - Respiratory failure, unspecified, unspecified whether with hypoxia or hypercapnia Status: Resolved (3) COPD (chronic obstructive pulmonary disease) Code(s): J44.9 - Chronic obstructive pulmonary disease, unspecified Status: Chronic - Plan 82 YOWM with paroxysmal atrial fibrillation, HTN, CKD, and COPD admitted 03/11 after he presented to the ER with complaints of "not feeling well" and found to be in multiorgan failure requiring emergent intubation and pressors. 1. ANISH superimposed on CKD - Renal indices continuing to decline and patient remains fluid overloaded - UOP decreasing steadily - Creatinine rising, >5 this AM - Potassium WNL - Not acidotic but anion gap slowly increasing - Nephrology following - Will likely need Vascath placement and HD - Continue aggressive diureses - Avoid nephrotoxic agents - Renally dose meds and avoid nephrotoxic agents 2. Acute hypoxic respiratory failure, COPD - Intubated 03/11-03/16 - Supplemental O2 PRN - Continue scheduled Atrovent nebs 2. CHF - 2D echo with EF 35% - Counseled patient and family on sodium and fluid restriction 3. HTN - Continue hydralazine and Coreg - Clonidine PRN 4. Paroxysmal atrial fibrillation with RVR - Cardiology following - On amiodarone and Coreg - Continue Eliquis 5. Urinary retention - Urology consulted; keep Barker and plan on voiding trial next week - Continue Flomax 6. COPD - Not in acute exacerbation - Bronchodilators PRN - Supplemental O2 PRN Pt with multiple comorbid conditions and worsening renal function. Palliative care following. Consult loan associate to talk to patient and family about appropriate cardiac and renal diets. DVT prophylaxis: On Eliquis Code Status: Full Discussed Condition With: Patient and his daughters Discharge Planning: Pending further eval of his kidney function which continues to deteriorate, may need hemodialysis Procedures - Arterial Line Size (Gauge): 18
[2018-03-26] MEDS ORDERED: Chlorothiazide Inj 500 MG Vial IV.PUSH ONE (13:53)
--- NOTE | 2018-03-26 14:03 | P.PNNP ---
Subjective Interval history: Patient with no view verbal complaints. Daughter by bedside. Physical Exam Vital signs: Vital Signs 03/25/18 14:04 03/25/18 15:00 03/25/18 16:03 Temperature 97.8 F Pulse Rate 146 H 72 68 Respiratory Rate 18 12 Blood Pressure 130/64 Pulse Oximetry 97 03/25/18 19:55 03/25/18 20:00 03/25/18 22:06 Temperature 98.0 F Pulse Rate 74 62 Respiratory Rate 20 Blood Pressure 140/67 Pulse Oximetry 95 96 03/25/18 23:47 03/26/18 00:00 03/26/18 03:00 Temperature 98.2 F 98.1 F Pulse Rate 65 72 78 Respiratory Rate 18 20 Blood Pressure 134/63 146/65 H Pulse Oximetry 94 L 94 L 03/26/18 03:49 03/26/18 04:00 03/26/18 04:14 Temperature Pulse Rate 73 65 Respiratory Rate 18 20 Blood Pressure Pulse Oximetry 03/26/18 07:00 03/26/18 09:15 03/26/18 11:00 Temperature Pulse Rate 77 78 62 Respiratory Rate 12 12 Blood Pressure Pulse Oximetry 95 Intake & Output 03/25/18 03/26/18 03/26/18 18:59 06:59 18:59 Intake Total 480 / 480 360 / 360 Output Total 600 / 600 Balance -120 / -120 360 / 360 Weight 117.5 kg Intake: Oral 480 / 480 360 / 360 Output: Urine Amount (Catheter) 600 / 600 Indwelling Urethral Catheter 600 / 600 Other: # Voids 300 Date of Last Bowel Movement 03/22/18 03/22/18 # Bowel Movements 0 Narrative: GENERAL: Elderly male lying in bed not in respiratory distress. SKIN: Warm and dry. HEAD: Normocephalic. EYES: No scleral icterus. No injection or drainage. NECK: Supple, trachea midline. No JVD. CARDIOVASCULAR: Regular rate and rhythm without murmurs, gallops, or rubs. RESPIRATORY: Breath sounds equal bilaterally. No accessory muscle use. GASTROINTESTINAL: Abdomen soft, non-tender, nondistended. MUSCULOSKELETAL: No cyanosis, 1+ pitting edema lower extremities. Trace edema forearms. - Urinary Catheter Management Indwelling Urethral Catheter Cath placed during this visit: yes Urethral indwelling: Yes Reason for continuing: Acute urinary retention Insertion date: 03/21/18 Insertion time: 12:00 Straight Cath placed during this visit: no Reason for continuing: Acute urinary retention Assessment and Plan - Assessment (1) Acute renal insufficiency Code(s): N28.9 - Disorder of kidney and ureter, unspecified Status: Acute Plan: Marginal urine output. Acid-base status and potassium level however stable. Azotemia continues to worsen unfortunately. Renal ultrasound of yesterday indicating a possible mild right hydronephrosis and a question of a renal calculus. CT scan done earlier during this admission made no mention of calculi. Will get a noncontrast CT of the abdomen to clarify. I discussed with the daughter by the bedside the above. Also discussed with her probable indication to start dialysis tomorrow if no improvement in azotemia. I discussed with the daughter the patient's overall condition including a coexisting cardiomyopathy with a moderately to severely reduced ejection fraction of 35-40% with global hypokinesis. Given his comorbidities prognosis on long-term dialysis likely poor. I indicated to her and the patient that if dialysis is initiated it may only be required temporarily but I cannot guarantee this. They were counseled regarding the procedure of dialysis catheter placement as well as dialysis itself. Indications for, alternatives to and risks associated with dialysis which can include hemorrhage, infection, hypotension, arrhythmia and were reviewed with them also. Patient today indicated that he would proceed with dialysis tomorrow if I believe indicated. We will hold Kwame in the a.m. Subsequently consult radiology for Vas-Cath placement if azotemia continues to worsen or are not improved. Medications should be adjusted for the patient's estimated GFR if clinically indicated. Avoid agents with significant potential for nephrotoxicity possible including NSAIDs for analgesia, iodine contrast agents. Gadolinium is contraindicated if the GFR is below 30. (2) Hypertension Code(s): I10 - Essential (primary) hypertension Status: Acute Plan: Patient's blood pressure stable at the present (3) COPD (chronic obstructive pulmonary disease) Code(s): J44.9 - Chronic obstructive pulmonary disease, unspecified Status: Acute Procedures - Arterial Line Size (Gauge): 18
--- NOTE | 2018-03-26 14:48 | ECG ---
Date Performed: 03/25/2018 Time Performed: 14:27:29 PTAGE: 82 years EKG: Sinus rhythm INFERIOR MYOCARDIAL INFARCTION , OF INDETERMINATE AGE WITH POSTERIOR EXTENSION Since previous tracin g, no significant change noted ABNORMAL ECG PREVIOUS TRACING : 03/23/2018 15.00 DOCTOR: Jeb Hughes Interpretating Date/Time 03/26/2018 14:47:33
--- NOTE | 2018-03-26 19:15 | CT ---
EXAM DATE: 03/26/2018 7:04 PM EDT AGE/SEX: 82 years / Male INDICATIONS: Renal insufficiency; possible hydronephrosis. CLINICAL DATA: This is the patient's initial encounter. Patient reports that signs and symptoms have been present for 1 day and indicates a pain score of 8/10. MEDICAL/SURGICAL HISTORY: The proximal ureter. Distal ureter decompressed. 3.7 cm cyst upper po le Insufficiency. Hypertension. Carcinoma, colon. Metabolic acidosis, CHF, Atrial fibrillation No ne. RADIATION DOSE: 32.74 CTDI (mGy) ; Patient body habitus COMPARISON: [facility] [place] & [place]EL[place] W/O CONTRAST, 03/12/2018. . TECHNIQUE: Multiple contiguous axial images were obtained through the abdomen. Images were obtained using multiple row detector helical technique. Using automated exposure control and adjustment of the mA and/or kV according to patient size, radiation dose was kept as low as reasonably achievable to o btain optimal diagnostic quality images. DICOM format image data is available electronically for rev iew and comparison. FINDINGS: Trace pleural effusion right lung base with minimal compressive atelectasis evident. Trace effusion on the left Cardiomegaly without pericardial effusion The liver is free of focal defects Gallstones in a benign-appearing gallbladder Pancreas and spleen unremarkable Right and left adrenal glands appear normal RIGHT KIDNEY: 4.9 cm cyst midportion 4.9 cm cyst lower pole 4.9 cm cyst projected from the lower pole that is spontaneously dense. There is no hydronephrosis. LEFT KIDNEY: Mild prominence to the collecting system extending to the mid ureter then appears normal . 3.7 cm cyst upper pole. Colostomy is seen left mid abdomen. There are no inflammatory changes in the abdomen Prominent bladder extending to the umbilicus the large prostate. Barker does not appear to be in the b ladder but in the prosthetic urethra. There is no ascites or adenopathy Degenerative changes of the lumbar spine. CONCLUSION: 1. Large distended bladder with Barker as above. 2. Bilateral renal cyst larger more numerous on the right. Electronically signed by: Edgard Chacon MD 03/26/2018 7:13 PM EDT
[2018-03-26] MEDS: Morphine Inj 4 MG/ML Vial IV.PUSH PRN (20:12)
--- NOTE | 2018-03-27 09:42 | P.PNNP ---
Subjective Interval history: Pt seen laying in bed in NAD. No family present. Noted CT showing Barker in prostatic urethra. Nursing readjusted Barker and 1800mL brisk urine output. Physical Exam Vital signs: Vital Signs 03/26/18 11:00 03/26/18 15:00 03/26/18 17:17 Temperature 97.9 F 99 F Pulse Rate 73 71 64 Respiratory Rate 20 20 12 Blood Pressure 127/60 148/63 H Pulse Oximetry 94 L 95 03/26/18 20:00 03/26/18 20:41 03/27/18 00:00 Temperature 98.4 F 98.2 F Pulse Rate 75 64 68 Respiratory Rate 18 16 18 Blood Pressure 102/55 L 118/55 L Pulse Oximetry 96 96 03/27/18 03:00 03/27/18 03:31 03/27/18 04:00 Temperature 98.1 F Pulse Rate 65 72 Respiratory Rate 18 16 20 Blood Pressure 127/60 Pulse Oximetry 94 L Intake & Output 03/26/18 03/27/18 03/27/18 18:59 06:59 18:59 Intake Total 480 / 480 720 / 720 Output Total 350 / 350 3300 / 3300 Balance 130 / 130 -2580 / -2580 Weight 115.7 kg Intake: Oral 480 / 480 720 / 720 Output: Urine 350 / 350 Urine Amount (Catheter) 3300 / 3300 Indwelling Urethral Catheter 3300 / 3300 Other: Date of Last Bowel Movement 03/22/18 - Constitutional no acute distress - Routine HEENT Exam Head: Present: normocephalic - Routine Neck Exam Present: supple - Routine Respiratory Exam Present: CTA bilaterally - Routine Cardiovascular Exam Present: RRR, S1, S2 - Routine Abdominal Exam Present: soft, ostomy - Routine Extremities Exam Present: edema (trace-1+ pitting edema BLE) - Routine Neurological Exam Present: alert - Urinary Catheter Management Indwelling Urethral Catheter Cath placed during this visit: yes Urethral indwelling: Yes Reason for continuing: Acute urinary retention Insertion date: 03/21/18 Insertion time: 12:00 Straight Cath placed during this visit: no Urethral indwelling: Yes Reason for continuing: Not indwelling catheter Assessment and Plan - Assessment (1) Acute renal insufficiency Code(s): N28.9 - Disorder of kidney and ureter, unspecified Status: Acute Plan: UOP much improved with adjustment of Barker. Labs slightly improved. Will hold PM dose of lasix as edema much improved. KCl ordered x1 dose. Remains to be seen if renal functions will improve enough to avoid dialysis this admission. Continue to hold Eliquis until tomorrow. Medications should be adjusted for the patient's estimated GFR if clinically indicated. Avoid agents with significant potential for nephrotoxicity possible including NSAIDs for analgesia, iodine contrast agents. Gadolinium is contraindicated if the GFR is below 30. (2) Hypertension Code(s): I10 - Essential (primary) hypertension Status: Acute Plan: Patient's blood pressure stable at the present (3) COPD (chronic obstructive pulmonary disease) Code(s): J44.9 - Chronic obstructive pulmonary disease, unspecified Status: Chronic Procedures - Arterial Line Size (Gauge): 18
[2018-03-27 09:49] LABS: Hematocrit 32.6 % (39.0-51.0); Hemoglobin 10.6 gm/dL (13.0-17.0); Mean Corpuscular HGB Conc 32.4 % (32.0-36.0); Mean Corpuscular Hemoglobin 20.4 pg (27.0-34.0); Mean Platelet Volume 8.6 fL (7.0-11.0); Platelet Count 208 th/mm3 (150-450); Red Blood Count 5.18 mil/mm3 (4.50-5.90); Red Cell Distribution Width 18.3 % (11.6-17.2)
--- NOTE | 2018-03-27 10:04 | P.PNCA ---
<Netta Serna N - Last Filed: 03/27/18 09:55> Subjective Interval history: Pt denies any pressure, palpitations, dizziness or SOB. Pt c/o chest pain that improves with coughing. Physical Exam Vital signs: Vital Signs 03/26/18 11:00 03/26/18 15:00 03/26/18 17:17 Temperature 97.9 F 99 F Pulse Rate 73 71 64 Respiratory Rate 20 20 12 Blood Pressure 127/60 148/63 H Pulse Oximetry 94 L 95 03/26/18 20:00 03/26/18 20:41 03/27/18 00:00 Temperature 98.4 F 98.2 F Pulse Rate 75 64 68 Respiratory Rate 18 16 18 Blood Pressure 102/55 L 118/55 L Pulse Oximetry 96 96 03/27/18 03:00 03/27/18 03:31 03/27/18 04:00 Temperature 98.1 F Pulse Rate 65 72 Respiratory Rate 18 16 20 Blood Pressure 127/60 Pulse Oximetry 94 L 03/27/18 08:00 Temperature 97.9 F Pulse Rate 61 Respiratory Rate 18 Blood Pressure 121/56 L Pulse Oximetry 94 L Intake & Output 03/26/18 03/27/18 03/27/18 18:59 06:59 18:59 Intake Total 480 / 480 720 / 720 Output Total 350 / 350 3300 / 3300 Balance 130 / 130 -2580 / -2580 Weight 115.7 kg Intake: Oral 480 / 480 720 / 720 Output: Urine 350 / 350 Urine Amount (Catheter) 3300 / 3300 Indwelling Urethral Catheter 3300 / 3300 Other: Date of Last Bowel Movement 03/22/18 Narrative: GENERAL: This is a well-nourished, well-developed patient, in no apparent distress. Patient speaks in clear complete sentences. Patient is pleasant. HEENT: Head is atraumatic and normocephalic. Neck is supple without lymphadenopathy and trachea is midline. No JVD or carotid bruits. CARDIOVASCULAR: Regular rate and rhythm without murmurs, gallops, or rubs. RESPIRATORY: Fine crackles bilaterally lower lobes. Breath sounds equal bilaterally. No wheezes, rales, or rhonchi. Chest wall is nontender. No use of accessory muscles. GASTROINTESTINAL: Abdomen is nontender, nondistended. Abdomen soft. No obvious pulsatile mass or bruit. No CVA tenderness. Strong femoral pulses bilaterally. Normal bowel sounds in all quadrants. MUSCULOSKELETAL: Patient is moving upper and lower extremities freely. No calf tenderness, edema trace in the lower extremities bilateral, no Homans sign. Strong pulses in upper and lower extremities. NEUROLOGICAL: Patient is alert and oriented. Cranial nerves 2-12 are grossly intact. No focal deficits and speech is clear. SKIN: No rash and turgor is normal. - Urinary Catheter Management Indwelling Urethral Catheter Cath placed during this visit: yes Urethral indwelling: Yes Reason for continuing: Acute urinary retention Insertion date: 03/21/18 Insertion time: 12:00 Straight Cath placed during this visit: no Reason for continuing: Not indwelling catheter Assessment and Plan - Assessment (1) Chest pain, atypical Code(s): R07.89 - Other chest pain Status: Acute (2) COPD (chronic obstructive pulmonary disease) Code(s): J44.9 - Chronic obstructive pulmonary disease, unspecified Status: Chronic (3) Hypotension Code(s): I95.9 - Hypotension, unspecified Status: Acute (4) Dyspnea Code(s): R06.00 - Dyspnea, unspecified Status: Acute (5) Cardiomyopathy Code(s): I42.9 - Cardiomyopathy, unspecified Status: Acute (6) Congestive heart failure (CHF) Code(s): I50.9 - Heart failure, unspecified Status: Acute (7) Obesity Code(s): E66.9 - Obesity, unspecified Status: Acute (8) Renal insufficiency Code(s): N28.9 - Disorder of kidney and ureter, unspecified Status: Acute - Plan Pt currently in SR with occasional PVC on monitor. Chest pain that clears with cough. Continue therapy for CHF. Edema in the lower extremities greatly improved bilaterally. Continue with current cardiac treatment. Increase activities as tolerated. Nephrology evaluation in progress along with palliative care. Will continue to follow patient during hospitalization. The patient was seen and evaluated by Dr. Esparza who participated in care, management and decision making. Procedures - Arterial Line Size (Gauge): 18 <Joel Esparza - Last Filed: 03/27/18 16:08> Physical Exam Vital signs: Vital Signs 03/26/18 17:17 03/26/18 20:00 03/26/18 20:41 Temperature 98.4 F Pulse Rate 64 75 64 Respiratory Rate 12 18 16 Blood Pressure 102/55 L Pulse Oximetry 96 03/27/18 00:00 03/27/18 03:00 03/27/18 03:31 Temperature 98.2 F Pulse Rate 68 65 Respiratory Rate 18 18 16 Blood Pressure 118/55 L Pulse Oximetry 96 03/27/18 04:00 03/27/18 08:00 03/27/18 10:23 Temperature 98.1 F 97.9 F Pulse Rate 72 61 Respiratory Rate 20 18 Blood Pressure 127/60 121/56 L Pulse Oximetry 94 L 94 L 96 03/27/18 12:00 Temperature 97.9 F Pulse Rate 67 Respiratory Rate 18 Blood Pressure 119/53 L Pulse Oximetry 95 Intake & Output 03/26/18 03/27/18 03/27/18 18:59 06:59 18:59 Intake Total 480 / 480 720 / 720 Output Total 350 / 350 3300 / 3300 Balance 130 / 130 -2580 / -2580 Weight 255 lb 1.197 oz Intake: Oral 480 / 480 720 / 720 Output: Urine 350 / 350 Urine Amount (Catheter) 3300 / 3300 Indwelling Urethral Catheter 3300 / 3300 Other: Date of Last Bowel Movement 03/22/18 - Urinary Catheter Management Indwelling Urethral Catheter Cath placed during this visit: no Straight Cath placed during this visit: no Assessment and Plan - Assessment (1) Chest pain, atypical Code(s): R07.89 - Other chest pain Status: Acute (2) COPD (chronic obstructive pulmonary disease) Code(s): J44.9 - Chronic obstructive pulmonary disease, unspecified Status: Chronic (3) Hypotension Code(s): I95.9 - Hypotension, unspecified Status: Acute (4) Dyspnea Code(s): R06.00 - Dyspnea, unspecified Status: Acute (5) Cardiomyopathy Code(s): I42.9 - Cardiomyopathy, unspecified Status: Acute (6) Congestive heart failure (CHF) Code(s): I50.9 - Heart failure, unspecified Status: Acute (7) Obesity Code(s): E66.9 - Obesity, unspecified Status: Acute (8) Renal insufficiency Code(s): N28.9 - Disorder of kidney and ureter, unspecified Status: Acute - Attending Attestation Patient seen and examined. I reviewed and agree with the evaluation and plan as presented. Continue current program for CHF. Remains inactive. Increase activity , PT.
[2018-03-27 10:15] LABS: Calcium 8.6 mg/dL (8.5-10.1); Carbon Dioxide 30.5 meq/L (21.0-32.0); Potassium 3.3 meq/L (3.5-5.1)
--- NOTE | 2018-03-27 10:51 | P.PNIM ---
Subjective Interval history: Pt seen and examined for ANISH. Yesterday a CT A/P was done showing a distended bladder to the level of the umbilicus and the Barker catheter in the prostatic urethra. The Barker was advanced and since then the patient has had excellent UOP with improvement of his creatinine. On examination today, the patient reports he is hurting all over. He states he wants to close his eyes and not wake up. His daughter who is present in the room reports he has been feeling depressed. At this time he acknowledges that his acute illnesses are making him feel down and he states he wants to live for his family. Physical Exam Vital signs: Vital Signs 03/26/18 11:00 03/26/18 15:00 03/26/18 17:17 Temperature 97.9 F 99 F Pulse Rate 73 71 64 Respiratory Rate 20 20 12 Blood Pressure 127/60 148/63 H Pulse Oximetry 94 L 95 03/26/18 20:00 03/26/18 20:41 03/27/18 00:00 Temperature 98.4 F 98.2 F Pulse Rate 75 64 68 Respiratory Rate 18 16 18 Blood Pressure 102/55 L 118/55 L Pulse Oximetry 96 96 03/27/18 03:00 03/27/18 03:31 03/27/18 04:00 Temperature 98.1 F Pulse Rate 65 72 Respiratory Rate 18 16 20 Blood Pressure 127/60 Pulse Oximetry 94 L 03/27/18 08:00 03/27/18 10:23 Temperature 97.9 F Pulse Rate 61 Respiratory Rate 18 Blood Pressure 121/56 L Pulse Oximetry 94 L 96 Intake & Output 03/26/18 03/27/18 03/27/18 18:59 06:59 18:59 Intake Total 480 / 480 720 / 720 Output Total 350 / 350 3300 / 3300 Balance 130 / 130 -2580 / -2580 Weight 115.7 kg Intake: Oral 480 / 480 720 / 720 Output: Urine 350 / 350 Urine Amount (Catheter) 3300 / 3300 Indwelling Urethral Catheter 3300 / 3300 Other: Date of Last Bowel Movement 03/22/18 Narrative: GENERAL: WN, WD male resting in bed in NAD. SKIN: Warm and dry. NECK: Supple no tender LAD or JVD. HEART: Distant heart sounds. RRR with 1/6 LI. LUNGS: Diminished breath sounds but otherwise clear. ABDOMEN: +BS, soft, NT, ND. EXTREMITIES: 1+ edema up to his knees, improved from prior exam. NEURO: Awake and alert. Extremely hard of hearing. - Urinary Catheter Management Indwelling Urethral Catheter Cath placed during this visit: yes Urethral indwelling: Yes Reason for continuing: Acute urinary retention Insertion date: 03/21/18 Insertion time: 12:00 Straight Cath placed during this visit: no Reason for continuing: Not indwelling catheter Results - Labs CBC & Chem 7: 03/27/18 08:38 03/27/18 08:38 Laboratory Results - last 24 hr 03/27/18 03/27/18 08:38 08:38 WBC 12.0 H RBC 5.18 Hgb 10.6 L Hct 32.6 L MCV 63.0 L MCH 20.4 L MCHC 32.4 RDW 18.3 H Plt Count 208 MPV 8.6 Sodium 134 L Potassium 3.3 L Chloride 93 L Carbon Dioxide 30.5 Anion Gap 11 BUN 121 H Creatinine 5.47 H Estimated GFR 10 L Random Glucose 99 Calcium 8.6 - Imaging Impressions Abdomen/Pelvis CT 03/26/18 00:00 CONCLUSION: 1. Large distended bladder with Barker as above. 2. Bilateral renal cyst larger more numerous on the right. Assessment and Plan - Assessment (1) Acute renal insufficiency Code(s): N28.9 - Disorder of kidney and ureter, unspecified Status: Acute (2) Respiratory failure Code(s): J96.90 - Respiratory failure, unspecified, unspecified whether with hypoxia or hypercapnia Status: Resolved (3) COPD (chronic obstructive pulmonary disease) Code(s): J44.9 - Chronic obstructive pulmonary disease, unspecified Status: Chronic - Plan 82 YOWM with paroxysmal atrial fibrillation, HTN, CKD, and COPD admitted 03/11 after he presented to the ER with complaints of "not feeling well" and found to be in multiorgan failure requiring emergent intubation and pressors. 1. ANISH superimposed on CKD - CT a/p done yesterday showing a distended bladder to the umbilicus and the Barker in the prostatic urethra - After advancing the Barker the patient has had excellent UOP, over 2L since yesterday evening - Modest improvement in creatinine today but nevertheless there is improvement - Nephrology following, hopefully patient will not need HD - Can back off diuresing since edema is improving - Decrease to daily instead of BID Lasix - Renally dose meds and avoid nephrotoxic agents - Continue Flomax and Barker for urinary retention 2. Acute hypoxic respiratory failure, COPD - Intubated 03/11-03/16 - Supplemental O2 PRN - Continue scheduled Atrovent nebs 2. CHF - Currently not in exacerbation - 2D echo with EF 35% - Counseled patient and family on sodium and fluid restriction 3. HTN - Continue hydralazine and Coreg - Clonidine PRN 4. Paroxysmal atrial fibrillation with RVR - Rate-controlled - Cardiology following - On amiodarone and Coreg - Continue Eliquis 5. COPD - Not in acute exacerbation - Bronchodilators PRN - Supplemental O2 PRN 6. Depression - I am hoping with continued improvement of his renal function and working with PT to regain his strength his depression will improve as it is related to his acute illness - Otherwise can consider starting an SSRI or even a stimulant Pt with multiple comorbid conditions. Palliative care following. DVT prophylaxis: On Eliquis Discussed Condition With: Patient and daughter Discharge Planning: Pending further eval of his kidney function and the decision of whether he will need dialysis Procedures - Arterial Line Size (Gauge): 18
[2018-03-27] MEDS: Amiodarone 200 MG Tablet PO SCH ×2 (10:54→21:23)
[2018-03-27] MEDS: Carvedilol 12.5 MG Tablet PO SCH ×2 (10:54→21:23)
[2018-03-27] MEDS: Senna/Docusate Sodium 8.6/50 MG Tablet PO SCH ×2 (10:55→21:23)
[2018-03-27] MEDS: Lidocaine 5% Patch T-DERMAL SCH (10:55)
[2018-03-27] MEDS: Chlorhexidine 0.12% Oral Kit 15 ML UDC OROPHARYNG SCH ×2 (10:56→21:25)
[2018-03-28 08:55] LABS: Baso % (Auto) 0.3 % (0.0-2.0); Eos # (Auto) 0.1 th/mm3 (0.0-0.4); Eos % (Auto) 0.9 % (0.0-4.0); Hematocrit 35.9 % (39.0-51.0); Hemoglobin 11.5 gm/dL (13.0-17.0); Lymph % (Auto) 34.2 % (9.0-44.0); Mean Corpuscular Hemoglobin 20.2 pg (27.0-34.0); Mean Corpuscular Volume 63.1 fL (80.0-100.0); Mean Platelet Volume 8.5 fL (7.0-11.0); Mono # (Auto) 0.7 th/mm3 (0.0-0.9); Mono % (Auto) 5.9 % (0.0-8.0); Neut # (Auto) 6.8 th/mm3 (1.8-7.7); Neut % (Auto) 58.7 % (16.0-70.0); Platelet Count 215 th/mm3 (150-450); Red Cell Distribution Width 18.4 % (11.6-17.2); White Blood Count 11.6 th/mm3 (4.0-11.0)
[2018-03-28] MEDS: Amiodarone 200 MG Tablet PO SCH ×2 (09:14→20:47)
[2018-03-28] MEDS: Senna/Docusate Sodium 8.6/50 MG Tablet PO SCH ×2 (09:14→20:48)
[2018-03-28] MEDS: Carvedilol 12.5 MG Tablet PO SCH ×2 (09:14→20:47)
[2018-03-28 09:16] LABS: Albumin 2.1 g/dL (3.4-5.0); Calcium 8.7 mg/dL (8.5-10.1); Phosphorus 4.7 mg/dL (2.5-4.9); Potassium 3.9 meq/L (3.5-5.1)
[2018-03-28] MEDS: Lidocaine 5% Patch T-DERMAL SCH (09:16)
--- NOTE | 2018-03-28 09:45 | P.PNCA ---
<Netta Serna N - Last Filed: 03/28/18 09:38> Subjective Interval history: Patient denies any palpitations, pressure, dizziness, or shortness of breath. Patient does complain of atypical chest pain on movement. Patient complains of increased generalized weakness. Physical Exam Vital signs: Vital Signs 03/27/18 10:23 03/27/18 12:00 03/27/18 16:00 Temperature 97.9 F 98.1 F Pulse Rate 63 64 Respiratory Rate 18 18 Blood Pressure 119/53 L 130/59 L Pulse Oximetry 96 95 95 03/27/18 16:19 03/27/18 20:00 03/27/18 21:52 Temperature Pulse Rate 64 65 74 Respiratory Rate 22 24 Blood Pressure Pulse Oximetry 98 95 03/27/18 23:00 03/28/18 00:00 03/28/18 03:00 Temperature 98.5 F 98.7 F Pulse Rate 65 64 67 Respiratory Rate 16 16 Blood Pressure 107/53 L 106/53 L Pulse Oximetry 93 L 88 L 03/28/18 03:40 03/28/18 04:00 03/28/18 08:06 Temperature Pulse Rate 64 65 76 Respiratory Rate 22 17 Blood Pressure Pulse Oximetry Intake & Output 03/27/18 03/28/18 03/28/18 18:59 06:59 18:59 Intake Total 600 / 600 480 / 480 Output Total 2200 / 2200 900 / 900 Balance -1600 / -1600 -420 / -420 Intake: Oral 600 / 600 480 / 480 Output: Urine 2200 / 2200 900 / 900 Other: Date of Last Bowel Movement 03/27/18 03/27/18 # Bowel Movements 0 Narrative: GENERAL: This is a well-nourished, well-developed patient, in no apparent distress. Patient speaks in clear complete sentences. Patient is pleasant. HEENT: Head is atraumatic and normocephalic. Neck is supple without lymphadenopathy and trachea is midline. No JVD or carotid bruits. CARDIOVASCULAR: Regular rate and rhythm without murmurs, gallops, or rubs. RESPIRATORY: Clear to auscultation. Breath sounds equal bilaterally. No wheezes , rales, or rhonchi. Chest wall is nontender. No use of accessory muscles. GASTROINTESTINAL: Abdomen is nontender, nondistended. Abdomen soft. No obvious pulsatile mass or bruit. No CVA tenderness. Strong femoral pulses bilaterally. Normal bowel sounds in all quadrants. MUSCULOSKELETAL: Patient is moving upper and lower extremities freely. No calf tenderness, no Homans sign. Trace edema lower extremities. Strong pulses in upper and lower extremities. NEUROLOGICAL: Patient is alert and oriented. Cranial nerves 2-12 are grossly intact. No focal deficits and speech is clear. SKIN: No rash and turgor is normal. - Urinary Catheter Management Indwelling Urethral Catheter Cath placed during this visit: yes Urethral indwelling: Yes Reason for continuing: Acute urinary retention Insertion date: 03/21/18 Insertion time: 12:00 Straight Cath placed during this visit: no Urethral indwelling: Yes Reason for continuing: Not indwelling catheter Assessment and Plan - Assessment (1) Chest pain, atypical Code(s): R07.89 - Other chest pain Status: Acute (2) COPD (chronic obstructive pulmonary disease) Code(s): J44.9 - Chronic obstructive pulmonary disease, unspecified Status: Chronic (3) Hypotension Code(s): I95.9 - Hypotension, unspecified Status: Acute (4) Dyspnea Code(s): R06.00 - Dyspnea, unspecified Status: Acute (5) Cardiomyopathy Code(s): I42.9 - Cardiomyopathy, unspecified Status: Acute (6) Congestive heart failure (CHF) Code(s): I50.9 - Heart failure, unspecified Status: Acute (7) Obesity Code(s): E66.9 - Obesity, unspecified Status: Acute (8) Renal insufficiency Code(s): N28.9 - Disorder of kidney and ureter, unspecified Status: Acute - Plan Pt currently in SR with occasional PVC on monitor. Atypical chest pain with any kind of movement. Continue therapy for CHF. Edema in the lower extremities greatly improved bilaterally. Continue with current cardiac treatment. Increase activities as tolerated. Patient is very weak instructed patient the importance of getting out of bed and increasing activity. PT is currently working with patient. Will continue to follow patient during hospitalization. The patient was seen and evaluated by Dr. Espraza who participated in care, management and decision making. Procedures - Arterial Line Size (Gauge): 18 <Joel Esparza - Last Filed: 03/28/18 15:42> Physical Exam Vital signs: Vital Signs 03/27/18 16:00 03/27/18 16:19 03/27/18 20:00 Temperature 98.1 F Pulse Rate 64 64 65 Respiratory Rate 18 22 Blood Pressure 130/59 L Pulse Oximetry 95 98 03/27/18 21:52 03/27/18 23:00 03/28/18 00:00 Temperature 98.5 F Pulse Rate 74 65 64 Respiratory Rate 24 16 Blood Pressure 107/53 L Pulse Oximetry 95 93 L 03/28/18 03:00 03/28/18 03:40 03/28/18 04:00 Temperature 98.7 F Pulse Rate 67 64 65 Respiratory Rate 16 22 Blood Pressure 106/53 L Pulse Oximetry 88 L 03/28/18 08:00 03/28/18 08:06 03/28/18 09:55 Temperature 98.3 F Pulse Rate 67 76 Respiratory Rate 20 17 Blood Pressure 130/60 Pulse Oximetry 86 L 92 L 03/28/18 12:00 03/28/18 14:00 Temperature 98.1 F Pulse Rate 65 72 Respiratory Rate 20 17 Blood Pressure 119/55 L Pulse Oximetry 86 L Intake & Output 03/27/18 03/28/18 03/28/18 18:59 06:59 18:59 Intake Total 600 / 600 480 / 480 Output Total 2200 / 2200 900 / 900 Balance -1600 / -1600 -420 / -420 Intake: Oral 600 / 600 480 / 480 Output: Urine 2200 / 2200 900 / 900 Other: Date of Last Bowel Movement 03/27/18 03/27/18 # Bowel Movements 0 - Urinary Catheter Management Indwelling Urethral Catheter Cath placed during this visit: no Straight Cath placed during this visit: no Assessment and Plan - Assessment (1) Chest pain, atypical Code(s): R07.89 - Other chest pain Status: Acute (2) COPD (chronic obstructive pulmonary disease) Code(s): J44.9 - Chronic obstructive pulmonary disease, unspecified Status: Chronic (3) Hypotension Code(s): I95.9 - Hypotension, unspecified Status: Acute (4) Dyspnea Code(s): R06.00 - Dyspnea, unspecified Status: Acute (5) Cardiomyopathy Code(s): I42.9 - Cardiomyopathy, unspecified Status: Acute (6) Congestive heart failure (CHF) Code(s): I50.9 - Heart failure, unspecified Status: Acute (7) Obesity Code(s): E66.9 - Obesity, unspecified Status: Acute (8) Renal insufficiency Code(s): N28.9 - Disorder of kidney and ureter, unspecified Status: Acute - Attending Attestation Patient seen and examined. I reviewed and agree with the evaluation and plan as presented. Very inactive, lacking motivation. Increase activity, PT.
--- NOTE | 2018-03-28 10:35 | P.PNNP ---
Subjective Interval history: Patient lying in bed. No verbal complaints. Physical Exam Vital signs: Vital Signs 03/27/18 12:00 03/27/18 16:00 03/27/18 16:19 Temperature 97.9 F 98.1 F Pulse Rate 63 64 64 Respiratory Rate 18 18 22 Blood Pressure 119/53 L 130/59 L Pulse Oximetry 95 95 98 03/27/18 20:00 03/27/18 21:52 03/27/18 23:00 Temperature 98.5 F Pulse Rate 65 74 65 Respiratory Rate 24 16 Blood Pressure 107/53 L Pulse Oximetry 95 93 L 03/28/18 00:00 03/28/18 03:00 03/28/18 03:40 Temperature 98.7 F Pulse Rate 64 67 64 Respiratory Rate 16 22 Blood Pressure 106/53 L Pulse Oximetry 88 L 03/28/18 04:00 03/28/18 08:00 03/28/18 08:06 Temperature 98.3 F Pulse Rate 65 67 76 Respiratory Rate 20 17 Blood Pressure 130/60 Pulse Oximetry 86 L 03/28/18 09:55 Temperature Pulse Rate Respiratory Rate Blood Pressure Pulse Oximetry 92 L Intake & Output 03/27/18 03/28/18 03/28/18 18:59 06:59 18:59 Intake Total 600 / 600 480 / 480 Output Total 2200 / 2200 900 / 900 Balance -1600 / -1600 -420 / -420 Intake: Oral 600 / 600 480 / 480 Output: Urine 2200 / 2200 900 / 900 Other: Date of Last Bowel Movement 03/27/18 03/27/18 # Bowel Movements 0 Narrative: GENERAL: Elderly male not in respiratory distress. SKIN: Warm and dry. HEAD: Normocephalic. EYES: No scleral icterus. No injection or drainage. NECK: Supple, trachea midline. No JVD or lymphadenopathy. CARDIOVASCULAR: Regular rate and rhythm without murmurs, gallops, or rubs. RESPIRATORY: Breath sounds equal bilaterally. No accessory muscle use. GASTROINTESTINAL: Abdomen soft, non-tender, nondistended. MUSCULOSKELETAL: No cyanosis, 2+ pitting edema hands and forearms. 1+ pitting edema lower legs. - Urinary Catheter Management Indwelling Urethral Catheter Cath placed during this visit: yes Urethral indwelling: Yes Reason for continuing: Acute urinary retention Insertion date: 03/21/18 Insertion time: 12:00 Straight Cath placed during this visit: no Urethral indwelling: Yes Reason for continuing: Not indwelling catheter Assessment and Plan - Assessment (1) Acute renal insufficiency Code(s): N28.9 - Disorder of kidney and ureter, unspecified Status: Acute Plan: UOP much improved with adjustment of Barker. Renal indices are improving albeit slowly. Urine output good however since Barker catheter repositioned. Continue to monitor renal function. Increase furosemide back to twice daily. Medications should be adjusted for the patient's estimated GFR if clinically indicated. Avoid agents with significant potential for nephrotoxicity possible including NSAIDs for analgesia, iodine contrast agents. Gadolinium is contraindicated if the GFR is below 30. (2) Hypertension Code(s): I10 - Essential (primary) hypertension Status: Acute Plan: Patient's blood pressure stable at the present (3) COPD (chronic obstructive pulmonary disease) Code(s): J44.9 - Chronic obstructive pulmonary disease, unspecified Status: Chronic Procedures - Arterial Line Size (Gauge): 18
[2018-03-28] MEDS: Chlorhexidine 0.12% Oral Kit 15 ML UDC OROPHARYNG SCH ×2 (11:43→20:46)
--- NOTE | 2018-03-28 16:08 | P.DIET ---
Nutritional Evaluation Type of nutrition evaluation: follow-up Nutrition consult regarding: Tube Feeding (Previous TF), Diet Evaluation ([facility] [place] for Diet Education) Subjective Subjective Comments: Pt sleeping on my visit. Would not arouse to name call. No family in room. Objective - Diagnosis Respiratory Failure, Shock - Objective % IBW: 148 (VIP=568#) Body Weight Used for Calculations: IBW (78kg) Energy Needs - Lower Range (kCal/kg): 25 Energy Needs - Upper Range (kCal/kg): 30 Lower Limit kCal/kg (kCals): 1,950 Upper Limit kCal/kg (kCals): 2,340 Lower Limit Protein Factor (Grams per Kg): 1.0 Upper Limit Protein Factor (Grams per Kg): 1.2 Lower Protein Needs (Protein): 78 Upper Protein Needs (Protein): 94 Dietitian Reviewed in Medical Record: Current diet, Curent medications, Intake & Output, Labs, Medical history Diet Order: Heart Healthy Oral Diet Intake Amount: Good 75-90% Objective Comments: Labs: BUN 110, software validation technician 4.24, eGFR 13 BM-> colostomy Assessment Assessment: [facility] [place] received for diet education. On arrival to pts room, he was sleeping heavily and would not arouse to multiple attempts of name call. Pt is also [place] w / no visible hearing aids in. Family not present in room. Pt would not awaken to soft touch either. Diet education for a heart healthy diet were left in pts room. Pt is not on a renal diet and unsure if he will start dialysis, so renal diet education was deferred at this time to avoid confusion. Pt is on a Heart Healthy diet and is eating 50-75% of his meals. No documented skin areas. Continue current POC. Consult RD if needed.
--- NOTE | 2018-03-28 17:09 | P.PN ---
Subjective Interval history: Patient appears apathetic, possible depression versus adjustment disorder. He reports that he is not interested in going on in his current state. I discussed the option of hospice with him but recommended waiting for a better day to decide that. Physical Exam Vital signs: Vital Signs 03/27/18 20:00 03/27/18 21:52 03/27/18 23:00 Temperature 98.5 F Pulse Rate 65 74 65 Respiratory Rate 24 16 Blood Pressure 107/53 L Pulse Oximetry 95 93 L 03/28/18 00:00 03/28/18 03:00 03/28/18 03:40 Temperature 98.7 F Pulse Rate 64 67 64 Respiratory Rate 16 22 Blood Pressure 106/53 L Pulse Oximetry 88 L 03/28/18 04:00 03/28/18 08:00 03/28/18 08:06 Temperature 98.3 F Pulse Rate 65 67 76 Respiratory Rate 20 17 Blood Pressure 130/60 Pulse Oximetry 86 L 03/28/18 09:55 03/28/18 12:00 03/28/18 14:00 Temperature 98.1 F Pulse Rate 65 72 Respiratory Rate 20 17 Blood Pressure 119/55 L Pulse Oximetry 92 L 86 L Intake & Output 03/27/18 03/28/18 03/28/18 18:59 06:59 18:59 Intake Total 600 / 600 480 / 480 Output Total 2200 / 2200 900 / 900 Balance -1600 / -1600 -420 / -420 Intake: Oral 600 / 600 480 / 480 Output: Urine 2200 / 2200 900 / 900 Other: Date of Last Bowel Movement 03/27/18 03/27/18 # Bowel Movements 0 Narrative: GENERAL: AAOx3, apathetic, possibly depressed SKIN: Warm and dry. No rashes HEAD: Atruamtic, normocephalic. EYES: No scleral icterus. No injection or drainage. ENT: Moist mucous membranes, patent nares, no erythema of oropharynx. NECK: Supple, trachea midline. No JVD or lymphadenopathy. Normal thyroid. CARDIOVASCULAR: Regular rate and rhythm. No murmurs, gallops, or rubs. RESPIRATORY: Breath sounds clear equal bilaterally. Minimal atelectasis in bases. No accessory muscle use. GASTROINTESTINAL: Abdomen soft, non-tender, nondistended, normal active bowel sounds MUSCULOSKELETAL: No cyanosis, or edema. NEURO: CN II-XII grossly intact, no focal deficits, no slurring of speech - Urinary Catheter Management Indwelling Urethral Catheter Cath placed during this visit: yes Urethral indwelling: Yes Reason for continuing: Acute urinary retention Insertion date: 03/21/18 Insertion time: 12:00 Straight Cath placed during this visit: no Urethral indwelling: Yes Reason for continuing: Not indwelling catheter Results - Labs CBC & Chem 7: 03/28/18 08:15 03/28/18 08:15 Laboratory Results - last 24 hr 03/26/18 03/28/18 03/28/18 08:05 08:15 08:15 WBC 11.6 H RBC 5.70 Hgb 11.5 L Hct 35.9 L MCV 63.1 L MCH 20.2 L MCHC 32.0 RDW 18.4 H Plt Count 215 MPV 8.5 Neut % (Auto) 58.7 Lymph % (Auto) 34.2 Clinch % (Auto) 5.9 Eos % (Auto) 0.9 Baso % (Auto) 0.3 Neut # (Auto) 6.8 Lymph # (Auto) 4.0 Clinch # (Auto) 0.7 Eos # (Auto) 0.1 Baso # (Auto) 0.0 WBC Differential . Differential Comment Auto diff final Sodium 134 L Potassium 3.9 Chloride 94 L Carbon Dioxide 31.0 Anion Gap 9 BUN 110 H Creatinine 4.24 H Estimated GFR 13 L Random Glucose 109 H Calcium 8.7 Phosphorus 4.7 Albumin 2.1 L Albumin (PEP) 2.55 L Albumin/Globulin Ratio 0.90 L Jodyr-1-Tmnjcukls 0.40 H Hhohn-8-Ltsiysxsf 0.87 Beta Globulins 0.77 Gamma Globulins 0.80 PEP Pathologist Comment Assessment and Plan - Assessment (1) Acute renal insufficiency Code(s): N28.9 - Disorder of kidney and ureter, unspecified Status: Acute (2) Respiratory failure Code(s): J96.90 - Respiratory failure, unspecified, unspecified whether with hypoxia or hypercapnia Status: Resolved (3) COPD (chronic obstructive pulmonary disease) Code(s): J44.9 - Chronic obstructive pulmonary disease, unspecified Status: Chronic - Plan 82M with paroxysmal atrial fibrillation, HTN, CKD, and COPD admitted 03/11 after he presented to the ER with complaints of "not feeling well" and found to be in multiorgan failure requiring emergent intubation and pressors. ANISH superimposed on CKD CT a/p done yesterday showing a distended bladder to the umbilicus and the Barker in the prostatic urethra Creatinine slowly improving but hovering around 3-4 range Nephrology following, hopefully patient will not need HD Lasix decreased to daily dosing rather than twice daily Renally dose meds and avoid nephrotoxic agents Continue Flomax and Barker for urinary retention Acute hypoxic respiratory failure, COPD Intubated 03/11-03/16 Continue supplemental O2 PRN Continue scheduled Atrovent nebs CHF No current exacerbation Echocardiogram shows ejection fraction of 35% Continue current therapy HTN Continue hydralazine and Coreg Clonidine PRN Paroxysmal atrial fibrillation with RVR Now rate controlled Continue amiodarone and CoregKwame Appreciate cardiology consult COPD Continue duo nebs as needed and supplemental oxygen as needed Depression Patient remains apathetic Consider starting an SSRI Will evaluate as condition improves Appreciate palliative care consult DVT prophylaxis Annelisequbill Procedures - Arterial Line Size (Gauge): 18
[2018-03-28] MEDS ORDERED: MethylPREDNISolone Sod Succinate Inj 125 MG/2 ML Vial IV.PUSH ONE (23:00)
--- NOTE | 2018-03-29 01:26 | XR ---
EXAM DATE: 03/29/2018 1:10 AM EDT AGE/SEX: 82 years / Male INDICATIONS: Shortness of breath. CLINICAL DATA: This is the patient's initial encounter. Patient reports that signs and symptoms have been present for 1 day and indicates a pain score of Nonresponsive. MEDICAL/SURGICAL HISTORY: . Carcinoma, colon. Chronic obstructive pulmonary disease. Non-resp onsive. COMPARISON: [facility] [place], CHEST 1V SINGLE AP, 03/24/2018. . FINDINGS: A single AP semierect portable view the chest was obtained and now demonstrates new complete opacific ation of left hemithorax with volume loss and mediastinal shift to the left. There is abrupt cut off of the left mainstem bronchus just past its origin. Atherosclerotic calcifications are present in the aorta. Heart size is not well visualized. There is patchy airspace disease remaining at the right grant ng base with apparent blunting of the costophrenic angle. The bony thorax remains intact. CONCLUSION: 1. New complete opacification of the left hemithorax with mediastinal shift to the left abrupt cut o ff of the left mainstem bronchus most consistent with mucus plugging. 2. Patchy airspace disease remains in the right lung base with blunting of the costophrenic angle. Electronically signed by: Javon Petersen MD 03/29/2018 1:24 AM EDT
[2018-03-29 03:50] LABS: Free Kappa/Lambda Light Chain 1.85 (0.26-1.65)
--- NOTE | 2018-03-29 04:43 | P.PNADD ---
Addendum to Inpatient Note Reason for Addendum: Additional Documentation Additional information: Responded to [facility] approx 0430. Patient having worsened respiratory distress requiring non-rebreather. Briefly he is a 82 yo with COPD and CHF admitted for acute renal insufficiency. By report he is having some mucus plugging in the left lung. O: HR 75, SpO2 100% on simple mask Gen - elderly male awake, pleasant, fatigued but in NAD Lungs - Clear breath sounds, significantly diminished on the left side, no crackles or wheezes CV - NRRR, no murmur A/P With office workforce planner Dr. Gallego at bedside, discussed care options with patient i.e. aggressive care with bronchoscopy to remove mucus plug or conservative treatment with nebulizers to break up mucus. Patient states multiple times that he "just wants to go to sleep and not wake up" and that he's very tired. Reviewed code status and patient expressed that he does not wish to have CPR in the event his heart stops. His overall goals of care seem consistent with hospice. - Acetylcysteine nebs PRN for mucus plugging - Guaifenesin for cough/mucus - Dr. Gallego to update family - Hospice consult, to talk to patient in morning - update code status
--- NOTE | 2018-03-29 05:13 | P.PNCC ---
Subjective Subjective Remarks/Hospital Course: 03/11: 82-year-old male presents with chief complaint of not feeling well, times today. On EMS arrival they found him pale diaphoretic tachycardic and critically ill. The patient has a history of colon cancer. According to nursing staff his family had some concern that he may intentionally took too many blood pressure medication. He was emergently intubated by ED attending for an airway protection due to altered mental status as well as severe hemodynamic instability. The patient is unable to give any additional history. No family available in the emergency department. 03/12: Remains sedated, orally intubated on mechanical ventilation. Hypotensive on pressors. Borderline urine output. 03/13: Sedated, arousable, not following commands. Remains orally intubated on mechanical ventilation. Urine output borderline. Off levophed. 03/14: remains intubated and deeply sedated on versed. discussed with RN: plan to wean sedation for appropriate RASS -2 goal. off vasopressors. 03/15: modest diuresis. still very encephalopathic, and when pressure support is weaned, becomes quite tachypneic with respiratory distress. 03/16: excellent diuresis. net -5L/24h. awake and alert this morning. passed SBT. will wean to extubate. Cr also continues to improve. 03/17: continues to have adequate diuresis. extubated yesterday. Cr improving. complains of chest pain with deep inspiration and cough. denies SOB. hard of hearing. 03/18: went into afib RVR around noon. K low at 3.4. less auto-diuresis today, and although edema is markedly improved, likely still some element of volume overload. more awake and alert and not confused today. hard of hearing and I asked his daughter to bring in his hearing aids. given metoprolol 10mg iv, digoxin 0.5mg iv x 1, 90 meq kcl, and 2gm mgso4 with some improvement in rate. started on po diltiazem. hospital out of iv diltiazem. patient is asymptomatic and denies chest pain, sob. ros unremarkable. Subjective: 03/29 Patient was on [facility] [place] on hospitalist service. [facility] was called due to hypoxia. He was placed on NR. CXR showed collapse of left lung. He is alert and mildly tachypneic on nonrebreather but overall appears relatively comfortable and conversant. Discussed with him treatment of the mucous plug with bronchoscopy. He states "I do not want all this I just want to go to sleep forever". He clarifies that he is ready to . Also discussed that it could be medically treated with mucolytics and percussive therapy/acapella. He states " I wish you could just put me to sleep and I would never wake up. I am tired of this. I can't do anything I want to anymore". He inquired about comfort measures. I discussed that is an option. He states he is agreeable to attempts at medical management but does not want bronchoscopy. He also wishes to change healthcare surrogate, see further discussion at the end of the note. I updated Pat Lozada and 4 N charge nurse. Patient will change to DNR and will remain on 4N. This conversation was witnessed by team of [facility] nurses and RTs. Objective Vital Signs / I&O: Vital Signs 03/28/18 08:00 03/28/18 08:06 03/28/18 09:55 Temperature 98.3 F Pulse Rate 67 76 Respiratory Rate 20 17 Blood Pressure 130/60 Pulse Oximetry 86 L 92 L 03/28/18 12:00 03/28/18 14:00 03/28/18 16:00 Temperature 98.1 F 98.0 F Pulse Rate 65 72 62 Respiratory Rate 20 17 20 Blood Pressure 119/55 L 112/55 L Pulse Oximetry 86 L 90 L 03/28/18 17:00 03/28/18 19:26 03/28/18 20:00 Temperature 98.2 F Pulse Rate 65 76 Respiratory Rate 16 16 Blood Pressure 129/59 L Pulse Oximetry 94 L 88 L 89 L 03/28/18 22:00 03/28/18 22:12 03/29/18 00:00 Temperature Pulse Rate 70 64 Respiratory Rate 18 Blood Pressure Pulse Oximetry 90 L 03/29/18 00:47 03/29/18 01:41 03/29/18 03:26 Temperature Pulse Rate 67 Respiratory Rate 18 Blood Pressure Pulse Oximetry 85 L 90 L 03/29/18 03:47 03/29/18 03:57 Temperature Pulse Rate Respiratory Rate Blood Pressure Pulse Oximetry 88 L 91 L Intake & Output 03/28/18 03/28/18 03/29/18 06:59 18:59 06:59 Intake Total 480 / 480 480 / 480 Output Total 900 / 900 1550 / 1550 Balance -420 / -420 -1070 / -1070 Intake: Oral 480 / 480 480 / 480 Output: Urine 900 / 900 1550 / 1550 Other: Date of Last Bowel Movement 03/27/18 03/28/18 # Bowel Movements 1 Result Diagrams: 03/28/18 08:15 03/28/18 08:15 Objective Remarks: gen: elderly male, sitting up in bed, alert and conversant. HEENT: awake, alert, no icterus, NR mask in place. Neck: No JVD Chest/Pulm: On nonrebreather with sats 93%. Decreased breath sounds throughout left lung. Clear to auscultation on the right without rales CVS: Irregular. GI/abdomen: soft, nontender, no guarding. Colostomy in place Extremities: warm bilaterally, mild LE edema. Neuro: Awake, oriented to self, year, [place], circumstance. Moving all extremities spontaneously. Assessment and Plan - Assessment and Plan Plan: Assessment: 82yM with resolving severe multiorgan failure, persistent multiorgan dysfunction and now mucous plug. Acute metabolic encephalopathy - resolved. Awake and oriented, appears capacitated. Prior Acute Hypoxic Respiratory failure- resolved. - nc o2 for goal spo2 > 90% Now acute L mainstem mucous plug Mucinex/mucomyst/acapella. Pt refuses intubation or bronchoscopy. On NR. COPD -No exacerbation -DuoNeb scheduled and as needed Severe metabolic acidosis- resolved. Lactic Acidosis- resolved. -CT abdomen and pelvis unremarkable shock- resolved -Telemetry -2D echo: EF 35%. Acute kidney injury superimposed on CKD, unknown stage- improving. I/O monitor creatinine. -nephrology following Acute protein calorie malnutrition- moderate Colon cancer s/p resection Atrial fibrillation with rapid ventricular response, resolved. Patient appears capacitated for medical decision-making. He is alert and oriented and appears to understand his current medical condition and implications of his choices regarding his goals of care. He states that he wishes to be DNR and he would like to transition to comfort care. He states he would like his ex-, Liz Lima, to be he surrogate decision maker. He states he wishes for me to call her to inform her of his decision. He does not want me to notify his daughters of his change of code status because " he does not want to upset them". He has previously designated his daughters as surrogate and alternate surrogate. He says he would like to change that. I attempted to contact his ex- at [phone]. Daughter Tegan answered. I told her he is capacitated for decision making and he wants Liz to make his decisions. She said that Liz's number is [phone]. I called that number, no answer, no voicemail. Patient tried to call Liz from his phone at number . There was also no answer. I discussed with Dr. Boo later in the morning 03/29 and he will assist with followup of this situation. Level 3 followup. Procedures - Arterial Line Size (Gauge): 18
[2018-03-29 08:53] LABS: Calcium 8.6 mg/dL (8.5-10.1); Carbon Dioxide 32.2 meq/L (21.0-32.0); Potassium 4.2 meq/L (3.5-5.1)
--- NOTE | 2018-03-29 09:39 | P.PNPAL ---
Reason for Visit Reason for visit: a. To assist with evaluation and management of symptoms including: pain, dyspnea. b. To assist medical decision maker(s) with: better understanding of current medical conditions; weighing benefits/burdens of medical treatment options; making medical treatment decisions. Subjective Subjective/Interval History: INTERVAL NOTE: The patient developed some dyspnea overnight, and was seen by critical care. A chest x-ray revealed complete opacification of the left hemithorax consistent with mucous plugging. He was started on oxygen, and he specifically refused any procedures or bronchoscopy. He told Dr. Gallego that he no longer wants to continue aggressive care, wants to transition to comfort care, and specifically does not want any more procedures, intubation, CPR, etc. Dr. Gallego tells me also that the patient wants his ex- Liz to be his HCS. His GFR remains 19. At the time I am seeing the patient, he is on nasal oxygen and appears to be breathing quite comfortably. He is alert, oriented, and has good insight and apparent good judgment into his situation. He tells me he does not want to be reintubated or to be resuscitated, but wants to focus on comfort now. He says he is tired and weak and notes that it seems quite unlikely that he will be able to go back to functioning as he has in the past months if he were to somehow survive all this. He requests hospice consult. Family/Friend Interactions: I spoke by telephone with ex- Liz and informed her of the patient's wishes. She accepts the role of HCS, and she will be here at the hospital later today when we will meet with the patient to talk further about engaging hospice services. Advance Directives Health Care Surrogate: Copy in medical record Health Care Surrogate Name and Number: Liz Lima [phone] Significant change in goals:: As noted above, the patient has requested DNR status and a transition to comfort care. Objective Vital Signs: Vital Signs 03/28/18 09:55 03/28/18 12:00 03/28/18 14:00 Temperature 98.1 F Pulse Rate 65 72 Respiratory Rate 20 17 Blood Pressure 119/55 L Pulse Oximetry 92 L 86 L 03/28/18 16:00 03/28/18 17:00 03/28/18 19:26 Temperature 98.0 F Pulse Rate 62 65 Respiratory Rate 20 16 Blood Pressure 112/55 L Pulse Oximetry 90 L 94 L 88 L 03/28/18 20:00 03/28/18 22:00 03/28/18 22:12 Temperature 98.2 F Pulse Rate 76 70 Respiratory Rate 16 18 Blood Pressure 129/59 L Pulse Oximetry 89 L 90 L 03/29/18 00:00 03/29/18 00:47 03/29/18 01:41 Temperature 99.6 F Pulse Rate 74 Respiratory Rate 16 Blood Pressure 127/60 Pulse Oximetry 90 L 85 L 90 L 03/29/18 03:26 03/29/18 03:47 03/29/18 03:50 Temperature Pulse Rate 67 Respiratory Rate 18 Blood Pressure Pulse Oximetry 88 L 91 L 03/29/18 03:57 03/29/18 04:00 03/29/18 04:05 Temperature 97.4 F L Pulse Rate 77 Respiratory Rate 14 Blood Pressure 131/61 Pulse Oximetry 91 L 91 L 91 L 03/29/18 05:35 Temperature Pulse Rate 64 Respiratory Rate 18 Blood Pressure Pulse Oximetry Intake & Output 03/28/18 03/29/18 03/29/18 18:59 06:59 18:59 Intake Total 480 / 480 0 / 0 Output Total 1550 / 1550 1400 / 1400 Balance -1070 / -1070 -1400 / -1400 Weight 111.7 kg Intake: Oral 480 / 480 0 / 0 Output: Urine 1550 / 1550 Urine Amount (Catheter) 1400 / 1400 Indwelling Urethral Catheter 1400 / 1400 Other: Date of Last Bowel Movement 03/28/18 # Bowel Movements 1 Physical Exam: CONSTITUTIONAL/GENERAL: This is an overweight, alert patient in no obvious distress. TUBES/LINES/DRAINS: Nasal cannula oxygen, IV access SKIN: No jaundice, rashes, or lesions. Ecchymoses on upper extremities. No wounds seen anteriorly. Skin temperature appropriate. Not diaphoretic. CARDIOVASCULAR: Regular rate and rhythm without murmurs, gallops, or rubs. RESPIRATORY/CHEST: Diminished breath sounds on the left. A couple rhonchi on the right GASTROINTESTINAL: Abdomen soft, protuberant. Bowel sounds present. Colostomy with pink stoma, scant drainage. GENITOURINARY: Without palpable bladder distension. MUSCULOSKELETAL: Extremities without clubbing, cyanosis, or edema. No mottling or clubbing. NEUROLOGICAL: Alert, oriented, cognitively sharp, follows commands. PSYCHIATRIC: No obvious anxiety or psychosis Diagnostic Tests Laboratory: Laboratory Results - last 72 hr 03/26/18 03/26/18 03/26/18 08:05 08:05 08:05 WBC 16.0 H RBC 5.48 Hgb 10.9 L Hct 34.3 L MCV 62.6 L MCH 20.0 L MCHC 31.9 L RDW 18.3 H Plt Count 212 MPV 8.8 Neut % (Auto) Lymph % (Auto) [place] % (Auto) Eos % (Auto) Baso % (Auto) Neut # (Auto) Lymph # (Auto) [place] # (Auto) Eos # (Auto) Baso # (Auto) WBC Differential Differential Comment Sodium 134 L Potassium 3.7 Chloride 93 L Carbon Dioxide 27.7 Anion Gap 13 BUN 111 H Creatinine 5.78 H Estimated GFR 9 L POC Glucose Random Glucose 101 Calcium 7.9 L Phosphorus Total Protein (PEP) 5.4 L Albumin Albumin (PEP) 2.55 L Albumin/Globulin Ratio 0.90 L Hfngl-2-Zjqofqgnx 0.40 H Iumzt-4-Twbtahxcb 0.87 Beta Globulins 0.77 Gamma Globulins 0.80 PEP Pathologist Comment Free [place] Light Chains 76.00 H Free [place]ambda Light Chain 41.00 H Free [place]/Lambda Ratio 1.85 H 03/27/18 03/27/18 03/28/18 08:38 08:38 08:15 WBC 12.0 H 11.6 H RBC 5.18 5.70 Hgb 10.6 L 11.5 L Hct 32.6 L 35.9 L MCV 63.0 L 63.1 L MCH 20.4 L 20.2 L MCHC 32.4 32.0 RDW 18.3 H 18.4 H Plt Count 208 215 MPV 8.6 8.5 Neut % (Auto) 58.7 Lymph % (Auto) 34.2 [place] % (Auto) 5.9 Eos % (Auto) 0.9 Baso % (Auto) 0.3 Neut # (Auto) 6.8 Lymph # (Auto) 4.0 [place] # (Auto) 0.7 Eos # (Auto) 0.1 Baso # (Auto) 0.0 WBC Differential . Differential Comment Auto diff final Sodium 134 L Potassium 3.3 L Chloride 93 L Carbon Dioxide 30.5 Anion Gap 11 BUN 121 H Creatinine 5.47 H Estimated GFR 10 L POC Glucose Random Glucose 99 Calcium 8.6 Phosphorus Total Protein (PEP) Albumin Albumin (PEP) Albumin/Globulin Ratio Lvrqy-6-Ogykpbtqu Tmthq-4-Vgobqqhzl Beta Globulins Gamma Globulins PEP Pathologist Comment Free [place] Light Chains Free [place]ambda Light Chain Free [place]/Lambda Ratio 03/28/18 03/29/18 03/29/18 08:15 04:05 07:20 WBC RBC Hgb Hct MCV MCH MCHC RDW Plt Count MPV Neut % (Auto) Lymph % (Auto) [place] % (Auto) Eos % (Auto) Baso % (Auto) Neut # (Auto) Lymph # (Auto) [place] # (Auto) Eos # (Auto) Baso # (Auto) WBC Differential Differential Comment Sodium 134 L 136 Potassium 3.9 4.2 Chloride 94 L 96 L Carbon Dioxide 31.0 32.2 H Anion Gap 9 8 BUN 110 H 97 H Creatinine 4.24 H 3.22 H Estimated GFR 13 L 19 L POC Glucose 187 H Random Glucose 109 H 204 H Calcium 8.7 8.6 Phosphorus 4.7 Total Protein (PEP) Albumin 2.1 L Albumin (PEP) Albumin/Globulin Ratio Fjubx-9-Kjqhuguyq Whkau-7-Cemkopjki Beta Globulins Gamma Globulins PEP Pathologist Comment Free [place] Light Chains Free Lambda Light Chain Free [place]/Lambda Ratio Result Diagrams: 03/28/18 08:15 03/29/18 07:20 Procedures: * 03/11/18: Intubated, right femoral central line, left IJ central line placed. Assessment and Plan - Disease Oriented Problem List (1) Respiratory failure (2) COPD (chronic obstructive pulmonary disease) (3) Hypotension (4) Acute renal insufficiency (5) Hypernatremia (6) Metabolic acidosis Pertinent Non-Medical Issues: Psychosocial: . Has 2 daughters (Marisol and Lorie) and 4 sons ( Inderjit, Aidan, Edgard Jr and Yo). Family reports Yo has severe autism, not capacitated. Ex- Liz is HCS. Spiritual: Unknown. Legal: Patient has capacity for decision-making, and he has designated his ex- Liz has HCS now. Ethical issues impacting care: No known concerns at this time. Important Contacts: * Marisol Dick, daughter: [phone] * Lorie Timmons, daughter: [phone] * Yury Lima JR, son: * Liz Lima (healthcare surrogate) -- ex-/mother to patient's daughter Tegan ([phone]) * Lorie Crandallsmileybill-- this is daughter Zamzam Timmons listed in EMR * Candelaria Land-- relationship unknown, daughter Yvette Tyson does not know anyone by this name; [phone] (left VM). * Izabela Beasley, sister: #[phone] * Radha Nguyen, sister: #[phone] Prognosis: Mr. Lima is an 82-year-old male with recent diagnosis of colon cancer status post surgical resection, COPD, hypertension, hyperlipidemia, atrial fibrillation , arthritis, polyneuropathy, diabetes and elevated BMI patient was admitted with respiratory failure, hypotension, acute kidney injury requiring pressor support, mechanical ventilation and now possible need for hemodialysis. Although he was able to be extubated, he is at high risk of acute decompensation , and continues to have underlying COPD and renal failure. He is appropriate for hospice services. Code Status: Full Code Plan: * DO NOT RESUSCITATE, per request of patient 03/29/18 * DECISION-MAKING: Patient has capacity for decision-making; he has designated his ex- Liz as [facility] [phone]. * GOALS: The patient has requested a transition to comfort measures, and does not want to be resuscitated. He has requested hospice services. * Hospice consult placed. * SYMPTOMS: Pain: sources may include cancer, tubes, lines, bedbound status; he denies pain at this time. Dyspnea: On nasal O2 and breathing fairly comfortably now. * Palliative Care will meet with patient and ex- later today. * Palliative care will continue to follow throughout hospital course to assist with symptom management and clarification of goals as needed. Time Spent Total Floor Time (mins): 44 Face to Face Time (mins): 20 >50% Time in Counseling or Coordination of Care: Yes (d/w RN and w Dr. Gallego and w hospice art therapist) Attestation Attestation: To help prompt me to consider important information that might be impacting today's encounter and assessment, information from prior notes written by myself or my colleagues may have been "brought forward" into today's note. My signature on this note, however, is an attestation that I personally performed the exam, history, and/or decision-making noted today, and, unless otherwise indicated, the interactions with patient, family, and staff as well as the review of records all occurred today. I also attest that the listed assessment and stated plan reflect my best clinical judgment today based on the combination of historical information, prior notes, and today's exam/ interactions. When time spent is documented, it refers only to time spent today by the signer, or if indicated, combined time spent today by collaborating physician/nurse practitioner.
--- NOTE | 2018-03-29 09:52 | P.PNCA ---
<EllenlindaNetta N - Last Filed: 03/29/18 09:39> Subjective Interval history: Patient still complains of chest pain that improves with coughing and clearing the chest. Patient denies any pressure, palpitations, dizziness or shortness of breath. Patient stated that he did get out of bed yesterday and sit in the chair. Physical Exam Vital signs: Vital Signs 03/28/18 09:55 03/28/18 12:00 03/28/18 14:00 Temperature 98.1 F Pulse Rate 65 72 Respiratory Rate 20 17 Blood Pressure 119/55 L Pulse Oximetry 92 L 86 L 03/28/18 16:00 03/28/18 17:00 03/28/18 19:26 Temperature 98.0 F Pulse Rate 62 65 Respiratory Rate 20 16 Blood Pressure 112/55 L Pulse Oximetry 90 L 94 L 88 L 03/28/18 20:00 03/28/18 22:00 03/28/18 22:12 Temperature 98.2 F Pulse Rate 76 70 Respiratory Rate 16 18 Blood Pressure 129/59 L Pulse Oximetry 89 L 90 L 03/29/18 00:00 03/29/18 00:47 03/29/18 01:41 Temperature 99.6 F Pulse Rate 74 Respiratory Rate 16 Blood Pressure 127/60 Pulse Oximetry 90 L 85 L 90 L 03/29/18 03:26 03/29/18 03:47 03/29/18 03:50 Temperature Pulse Rate 67 Respiratory Rate 18 Blood Pressure Pulse Oximetry 88 L 91 L 03/29/18 03:57 03/29/18 04:00 03/29/18 04:05 Temperature 97.4 F L Pulse Rate 77 Respiratory Rate 14 Blood Pressure 131/61 Pulse Oximetry 91 L 91 L 91 L 03/29/18 05:35 Temperature Pulse Rate 64 Respiratory Rate 18 Blood Pressure Pulse Oximetry Intake & Output 03/28/18 03/29/18 03/29/18 18:59 06:59 18:59 Intake Total 480 / 480 0 / 0 Output Total 1550 / 1550 1400 / 1400 Balance -1070 / -1070 -1400 / -1400 Weight 111.7 kg Intake: Oral 480 / 480 0 / 0 Output: Urine 1550 / 1550 Urine Amount (Catheter) 1400 / 1400 Indwelling Urethral Catheter 1400 / 1400 Other: Date of Last Bowel Movement 03/28/18 # Bowel Movements 1 Narrative: GENERAL: This is a well-nourished, well-developed patient, in no apparent distress. Patient speaks in clear complete sentences. Patient is pleasant. HEENT: Head is atraumatic and normocephalic. Neck is supple without lymphadenopathy and trachea is midline. No JVD or carotid bruits. CARDIOVASCULAR: Regular rate and rhythm without murmurs, gallops, or rubs. RESPIRATORY: Clear to auscultation. Breath sounds equal bilaterally. No wheezes , rales, or rhonchi. Chest wall is nontender. No use of accessory muscles. Patient currently on 5 L humidified oxygen via nasal cannula. GASTROINTESTINAL: Abdomen is nontender, nondistended. Abdomen soft. No obvious pulsatile mass or bruit. No CVA tenderness. Strong femoral pulses bilaterally. Normal bowel sounds in all quadrants. MUSCULOSKELETAL: Patient is moving upper and lower extremities freely. No calf tenderness or edema, no Homans sign. Strong pulses in upper and lower extremities. NEUROLOGICAL: Patient is alert and oriented. Cranial nerves 2-12 are grossly intact. No focal deficits and speech is clear. SKIN: No rash and turgor is normal. - Urinary Catheter Management Indwelling Urethral Catheter Cath placed during this visit: yes Urethral indwelling: Yes Reason for continuing: Acute urinary retention Insertion date: 03/21/18 Insertion time: 12:00 Straight Cath placed during this visit: no Urethral indwelling: Yes Reason for continuing: Not indwelling catheter Assessment and Plan - Assessment (1) Chest pain, atypical Code(s): R07.89 - Other chest pain Status: Acute (2) COPD (chronic obstructive pulmonary disease) Code(s): J44.9 - Chronic obstructive pulmonary disease, unspecified Status: Chronic (3) Hypotension Code(s): I95.9 - Hypotension, unspecified Status: Acute (4) Dyspnea Code(s): R06.00 - Dyspnea, unspecified Status: Acute (5) Cardiomyopathy Code(s): I42.9 - Cardiomyopathy, unspecified Status: Acute (6) Congestive heart failure (CHF) Code(s): I50.9 - Heart failure, unspecified Status: Acute (7) Obesity Code(s): E66.9 - Obesity, unspecified Status: Acute (8) Renal insufficiency Code(s): N28.9 - Disorder of kidney and ureter, unspecified Status: Acute - Plan Pt currently in SR with occasional PVC on monitor. Continue therapy for CHF. Edema in the lower extremities continues to improved bilaterally. Continue with current cardiac treatment. Increase activities as tolerated. Patient did get out of bed yesterday and sat in the chair for a few hours. PT is currently working with patient. Patient lacks motivation and the will to get better. Continue to encourage patient to increase activity every day to aid in increasing his strength and helping him get better. Will continue to follow patient during hospitalization. The patient was seen and evaluated by Dr. Esparza who participated in care, management and decision making. Procedures - Arterial Line Size (Gauge): 18 <Joel Esparza - Last Filed: 03/29/18 15:03> Physical Exam Vital signs: Vital Signs 03/28/18 16:00 03/28/18 17:00 03/28/18 19:26 Temperature 98.0 F Pulse Rate 62 65 Respiratory Rate 20 16 Blood Pressure 112/55 L Pulse Oximetry 90 L 94 L 88 L 03/28/18 20:00 03/28/18 22:00 03/28/18 22:12 Temperature 98.2 F Pulse Rate 76 70 Respiratory Rate 16 18 Blood Pressure 129/59 L Pulse Oximetry 89 L 90 L 03/29/18 00:00 03/29/18 00:47 03/29/18 01:41 Temperature 99.6 F Pulse Rate 74 Respiratory Rate 16 Blood Pressure 127/60 Pulse Oximetry 90 L 85 L 90 L 03/29/18 03:26 03/29/18 03:47 03/29/18 03:50 Temperature Pulse Rate 67 Respiratory Rate 18 Blood Pressure Pulse Oximetry 88 L 91 L 03/29/18 03:57 03/29/18 04:00 03/29/18 04:05 Temperature 97.4 F L Pulse Rate 77 Respiratory Rate 14 Blood Pressure 131/61 Pulse Oximetry 91 L 91 L 91 L 03/29/18 05:35 03/29/18 08:00 Temperature 97.6 F Pulse Rate 64 77 Respiratory Rate 18 20 Blood Pressure 136/63 Pulse Oximetry 88 L Intake & Output 03/28/18 03/29/18 03/29/18 18:59 06:59 18:59 Intake Total 480 / 480 0 / 0 Output Total 1550 / 1550 1400 / 1400 Balance -1070 / -1070 -1400 / -1400 Weight 246 lb 4.101 oz Intake: Oral 480 / 480 0 / 0 Output: Urine 1550 / 1550 Urine Amount (Catheter) 1399 / 1399 Indwelling Urethral Catheter 1399 / 1399 Other: Date of Last Bowel Movement 03/28/18 # Bowel Movements 1 - Urinary Catheter Management Indwelling Urethral Catheter Cath placed during this visit: no Straight Cath placed during this visit: no Assessment and Plan - Assessment (1) Chest pain, atypical Code(s): R07.89 - Other chest pain Status: Acute (2) COPD (chronic obstructive pulmonary disease) Code(s): J44.9 - Chronic obstructive pulmonary disease, unspecified Status: Chronic (3) Hypotension Code(s): I95.9 - Hypotension, unspecified Status: Acute (4) Dyspnea Code(s): R06.00 - Dyspnea, unspecified Status: Acute (5) Cardiomyopathy Code(s): I42.9 - Cardiomyopathy, unspecified Status: Acute (6) Congestive heart failure (CHF) Code(s): I50.9 - Heart failure, unspecified Status: Acute (7) Obesity Code(s): E66.9 - Obesity, unspecified Status: Acute (8) Renal insufficiency Code(s): N28.9 - Disorder of kidney and ureter, unspecified Status: Acute - Attending Attestation Patient seen and examined. I reviewed and agree with the evaluation and plan as presented. Continue current program. Increase activity. Slow progress.
[2018-03-29] MEDS: Senna/Docusate Sodium 8.6/50 MG Tablet PO SCH ×2 (09:56→20:20)
[2018-03-29] MEDS: Lidocaine 5% Patch T-DERMAL SCH (09:56)
[2018-03-29] MEDS: Carvedilol 12.5 MG Tablet PO SCH ×2 (09:57→20:21)
[2018-03-29] MEDS: guaiFENesin 600 MG ER Tablet PO SCH ×2 (09:58→20:21)
[2018-03-29] MEDS: Chlorhexidine 0.12% Oral Kit 15 ML UDC OROPHARYNG SCH ×2 (09:59→20:21)
[2018-03-29] MEDS: Amiodarone 200 MG Tablet PO SCH ×2 (09:59→20:21)
--- NOTE | 2018-03-29 15:29 | P.PN ---
Subjective Interval history: Patient appears in better spirits today, he has been shaved and is smiling. He has no new complaints, continues to use nasal cannula oxygen. Physical Exam Vital signs: Vital Signs 03/28/18 16:00 03/28/18 17:00 03/28/18 19:26 Temperature 98.0 F Pulse Rate 62 65 Respiratory Rate 20 16 Blood Pressure 112/55 L Pulse Oximetry 90 L 94 L 88 L 03/28/18 20:00 03/28/18 22:00 03/28/18 22:12 Temperature 98.2 F Pulse Rate 76 70 Respiratory Rate 16 18 Blood Pressure 129/59 L Pulse Oximetry 89 L 90 L 03/29/18 00:00 03/29/18 00:47 03/29/18 01:41 Temperature 99.6 F Pulse Rate 74 Respiratory Rate 16 Blood Pressure 127/60 Pulse Oximetry 90 L 85 L 90 L 03/29/18 03:26 03/29/18 03:47 03/29/18 03:50 Temperature Pulse Rate 67 Respiratory Rate 18 Blood Pressure Pulse Oximetry 88 L 91 L 03/29/18 03:57 03/29/18 04:00 03/29/18 04:05 Temperature 97.4 F L Pulse Rate 77 Respiratory Rate 14 Blood Pressure 131/61 Pulse Oximetry 91 L 91 L 91 L 03/29/18 05:35 03/29/18 08:00 03/29/18 12:00 Temperature 97.6 F 97.6 F Pulse Rate 64 77 69 Respiratory Rate 18 20 20 Blood Pressure 136/63 119/56 L Pulse Oximetry 88 L 90 L 03/29/18 15:24 Temperature Pulse Rate 68 Respiratory Rate 18 Blood Pressure Pulse Oximetry 91 L Intake & Output 03/28/18 03/29/18 03/29/18 18:59 06:59 18:59 Intake Total 480 / 480 0 / 0 Output Total 1550 / 1550 1400 / 1400 Balance -1070 / -1070 -1400 / -1400 Weight 111.7 kg Intake: Oral 480 / 480 0 / 0 Output: Urine 1550 / 1550 Urine Amount (Catheter) 1400 / 1400 Indwelling Urethral Catheter 1400 / 1400 Other: Date of Last Bowel Movement 03/28/18 03/28/18 # Bowel Movements 1 Narrative: GENERAL: AAOx3, no acute distress, pleasant, resting comfortably SKIN: Warm and dry. No rashes HEAD: Atruamtic, normocephalic. EYES: No scleral icterus. No injection or drainage. ENT: Moist mucous membranes, patent nares, no erythema of oropharynx. NECK: Supple, trachea midline. No JVD or lymphadenopathy. Normal thyroid. CARDIOVASCULAR: Regular rate and rhythm. No murmurs, gallops, or rubs. RESPIRATORY: Breath sounds clear equal bilaterally. Scattered wheezes. No accessory muscle use. GASTROINTESTINAL: Abdomen soft, non-tender, nondistended, normal active bowel sounds MUSCULOSKELETAL: No cyanosis, or edema. NEURO: CN II-XII grossly intact, no focal deficits, no slurring of speech - Urinary Catheter Management Indwelling Urethral Catheter Cath placed during this visit: yes Urethral indwelling: Yes Reason for continuing: Acute urinary retention Insertion date: 03/21/18 Insertion time: 12:00 Straight Cath placed during this visit: no Urethral indwelling: Yes Reason for continuing: Not indwelling catheter Results - Labs CBC & Chem 7: 03/28/18 08:15 03/29/18 07:20 Laboratory Results - last 24 hr 03/26/18 03/29/18 03/29/18 08:05 04:05 07:20 Sodium 136 Potassium 4.2 Chloride 96 L Carbon Dioxide 32.2 H Anion Gap 8 BUN 97 H Creatinine 3.22 H Estimated GFR 19 L POC Glucose 187 H Random Glucose 204 H Calcium 8.6 Free [place] Light Chains 76.00 H Free Lambda Light Chain 41.00 H Free [place]/Lambda Ratio 1.85 H - Imaging Impressions Chest X-Ray 03/29/18 00:48 CONCLUSION: 1. New complete opacification of the left hemithorax with mediastinal shift to the left abrupt cut off of the left mainstem bronchus most consistent with mucus plugging. 2. Patchy airspace disease remains in the right lung base with blunting of the costophrenic angle. Assessment and Plan - Assessment (1) Acute renal insufficiency Code(s): N28.9 - Disorder of kidney and ureter, unspecified Status: Acute (2) Respiratory failure Code(s): J96.90 - Respiratory failure, unspecified, unspecified whether with hypoxia or hypercapnia Status: Resolved (3) COPD (chronic obstructive pulmonary disease) Code(s): J44.9 - Chronic obstructive pulmonary disease, unspecified Status: Chronic - Plan 82M with paroxysmal atrial fibrillation, HTN, CKD, and COPD admitted 03/11 after he presented to the ER with complaints of "not feeling well" and found to be in multiorgan failure requiring emergent intubation and pressors. 03/29 = patient has an improved affect today, no longer as depressed. He requested a hospice consult ANISH superimposed on CKD CT a/p done yesterday showing a distended bladder to the umbilicus and the Barker in the prostatic urethra Creatinine slowly improving but hovering around 3-4 range Nephrology following, hopefully patient will not need HD Lasix decreased to daily dosing rather than twice daily Renally dose meds and avoid nephrotoxic agents Continue Flomax and Barker for urinary retention Acute hypoxic respiratory failure, COPD Intubated 03/11-03/16 Continue supplemental O2 PRN Continue scheduled Atrovent nebs CHF No current exacerbation Echocardiogram shows ejection fraction of 35% Continue current therapy HTN Continue hydralazine and Coreg Clonidine PRN Paroxysmal atrial fibrillation with RVR Now rate controlled Continue amiodarone and Coreg, Kwame Appreciate cardiology consult COPD Continue duo nebs as needed and supplemental oxygen as needed Depression Improved affect today, smiling Appreciate palliative care consult DVT prophylaxis Kwame Procedures - Arterial Line Size (Gauge): 18
--- NOTE | 2018-03-30 10:46 | P.PNCA ---
<Netta Serna N - Last Filed: 03/30/18 10:41> Subjective Interval history: General: Patient denies fevers, chills, and recent travel. HEENT: Patient denies headache, sore throat, difficulty swallowing. Cardiovascular: Patient denies chest pain or dizziness. Denies sensation of heart beating rapidly or irregularly. No syncope. Respiratory: Denies shortness of breath or inspirational. Complains of chest discomfort on deep inspiration. Denies coughing wheezing or hemoptysis. GI: Patient denies nausea, vomiting, diarrhea, abdominal pain, bloody stools. Musculoskeletal: Patient denies joint pain or edema. Denies calf pain or edema. Neurovascular: Patient denies numbness, tingling, weakness in extremities. Denies headache. Endocrine: Denies polyuria and polydipsia. Hematologic: Denies easy bruising. Skin: Denies rash or itching. Physical Exam Vital signs: Vital Signs 03/29/18 12:00 03/29/18 15:24 03/29/18 16:00 Temperature 97.6 F 97.1 F L Pulse Rate 68 68 72 Respiratory Rate 20 18 20 Blood Pressure 119/56 L 146/64 H Pulse Oximetry 90 L 91 L 91 L 03/29/18 20:00 03/29/18 21:00 03/30/18 00:00 Temperature 97.2 F L 97.7 F Pulse Rate 80 72 73 Respiratory Rate 20 20 20 Blood Pressure 135/72 144/57 H Pulse Oximetry 92 L 92 L 03/30/18 04:00 03/30/18 04:48 Temperature 97.8 F Pulse Rate 59 L 66 Respiratory Rate 20 17 Blood Pressure 119/58 L Pulse Oximetry 91 L 95 Intake & Output 03/29/18 03/30/18 03/30/18 18:59 06:59 18:59 Intake Total 480 / 480 0 / 0 Output Total 1675 / 1675 1200 / 1200 Balance -1195 / -1195 -1200 / -1200 Weight 111.6 kg Intake: Oral 480 / 480 0 / 0 Output: Urine 1675 / 1675 1200 / 1200 Other: Date of Last Bowel Movement 03/28/18 03/28/18 # Bowel Movements 1 0 Narrative: GENERAL: This is a well-nourished, well-developed patient, in no apparent distress. Patient speaks in clear complete sentences. Patient is pleasant. HEENT: Head is atraumatic and normocephalic. Neck is supple without lymphadenopathy and trachea is midline. No JVD or carotid bruits. CARDIOVASCULAR: Regular rate and rhythm without murmurs, gallops, or rubs. Atypical chest pain on deep inspiration. RESPIRATORY: Clear to auscultation. Breath sounds equal bilaterally. No wheezes , rales, or rhonchi. Chest wall is nontender. No use of accessory muscles. GASTROINTESTINAL: Abdomen is nontender, nondistended. Abdomen soft. No obvious pulsatile mass or bruit. No CVA tenderness. Strong femoral pulses bilaterally. Normal bowel sounds in all quadrants. MUSCULOSKELETAL: Patient is moving upper and lower extremities freely. No calf tenderness or edema, no Homans sign. Strong pulses in upper and lower extremities. NEUROLOGICAL: Patient is alert and oriented. Cranial nerves 2-12 are grossly intact. No focal deficits and speech is clear. SKIN: No rash and turgor is normal. - Urinary Catheter Management Indwelling Urethral Catheter Cath placed during this visit: yes Urethral indwelling: Yes Reason for continuing: Acute urinary retention Insertion date: 03/21/18 Insertion time: 12:00 Straight Cath placed during this visit: no Urethral indwelling: Yes Reason for continuing: Chronic Urinary Retention Assessment and Plan - Assessment (1) Chest pain, atypical Code(s): R07.89 - Other chest pain Status: Acute (2) COPD (chronic obstructive pulmonary disease) Code(s): J44.9 - Chronic obstructive pulmonary disease, unspecified Status: Chronic (3) Hypotension Code(s): I95.9 - Hypotension, unspecified Status: Acute (4) Dyspnea Code(s): R06.00 - Dyspnea, unspecified Status: Acute (5) Cardiomyopathy Code(s): I42.9 - Cardiomyopathy, unspecified Status: Acute (6) Congestive heart failure (CHF) Code(s): I50.9 - Heart failure, unspecified Status: Acute (7) Obesity Code(s): E66.9 - Obesity, unspecified Status: Acute (8) Renal insufficiency Code(s): N28.9 - Disorder of kidney and ureter, unspecified Status: Acute - Plan Pt currently in SR with occasional PVC on monitor. Continue therapy for CHF. Edema in the lower extremities continues to improved bilaterally. Continue with current cardiac treatment. Increase activities as tolerated. PT is currently working with patient. Patient is in much better spirits this morning, smiling and appears to be more motivated. Continue to encourage patient to increase activity every day to aid in increasing his strength and helping him get better. Will continue to follow patient during hospitalization. The patient was seen and evaluated by Dr. Esparza who participated in care, management and decision making. Procedures - Arterial Line Size (Gauge): 18 <Joel Esparza - Last Filed: 03/30/18 13:55> Physical Exam Vital signs: Vital Signs 03/29/18 15:24 03/29/18 16:00 03/29/18 20:00 Temperature 97.1 F L 97.2 F L Pulse Rate 68 72 80 Respiratory Rate 18 20 20 Blood Pressure 146/64 H 135/72 Pulse Oximetry 91 L 91 L 92 L 03/29/18 21:00 03/30/18 00:00 03/30/18 04:00 Temperature 97.7 F 97.8 F Pulse Rate 72 73 59 L Respiratory Rate 20 20 20 Blood Pressure 144/57 H 119/58 L Pulse Oximetry 92 L 91 L 03/30/18 04:48 03/30/18 10:45 Temperature Pulse Rate 66 88 Respiratory Rate 17 16 Blood Pressure Pulse Oximetry 95 89 L Intake & Output 03/29/18 03/30/18 03/30/18 18:59 06:59 18:59 Intake Total 480 / 480 0 / 0 Output Total 1675 / 1675 1200 / 1200 Balance -1195 / -1195 -1200 / -1200 Weight 246 lb 0.574 oz Intake: Oral 480 / 480 0 / 0 Output: Urine 1675 / 1675 1200 / 1200 Other: Date of Last Bowel Movement 03/28/18 03/28/18 # Bowel Movements 1 0 - Urinary Catheter Management Indwelling Urethral Catheter Cath placed during this visit: no Straight Cath placed during this visit: no Assessment and Plan - Assessment (1) Chest pain, atypical Code(s): R07.89 - Other chest pain Status: Acute (2) COPD (chronic obstructive pulmonary disease) Code(s): J44.9 - Chronic obstructive pulmonary disease, unspecified Status: Chronic (3) Hypotension Code(s): I95.9 - Hypotension, unspecified Status: Acute (4) Dyspnea Code(s): R06.00 - Dyspnea, unspecified Status: Acute (5) Cardiomyopathy Code(s): I42.9 - Cardiomyopathy, unspecified Status: Acute (6) Congestive heart failure (CHF) Code(s): I50.9 - Heart failure, unspecified Status: Acute (7) Obesity Code(s): E66.9 - Obesity, unspecified Status: Acute (8) Renal insufficiency Code(s): N28.9 - Disorder of kidney and ureter, unspecified Status: Acute - Attending Attestation Patient seen and examined. I reviewed and agree with the evaluation and plan as presented. Continue current program. Increase activity, PT.
[2018-03-30] MEDS: Lidocaine 5% Patch T-DERMAL SCH (10:57)
[2018-03-30] MEDS: Senna/Docusate Sodium 8.6/50 MG Tablet PO SCH ×2 (10:58→20:22)
[2018-03-30] MEDS: Chlorhexidine 0.12% Oral Kit 15 ML UDC OROPHARYNG SCH ×2 (10:59→20:23)
[2018-03-30] MEDS: Carvedilol 12.5 MG Tablet PO SCH ×2 (10:59→20:22)
[2018-03-30] MEDS: Amiodarone 200 MG Tablet PO SCH ×2 (10:59→20:22)
[2018-03-30] MEDS: guaiFENesin 600 MG ER Tablet PO SCH ×2 (10:59→20:22)
--- NOTE | 2018-03-30 15:28 | CT ---
EXAM DATE: 03/30/2018 3:10 PM EDT AGE/SEX: 82 years / Male INDICATIONS: Shortness of breath. CLINICAL DATA: This is the patient's initial encounter. Patient reports that signs and symptoms have been present for 1 day and indicates a pain score of 3/10. MEDICAL/SURGICAL HISTORY: Hypertension. Diabetes. Colon cancer. . Ethmoidectomy. RADIATION DOSE: 17.34 CTDI (mGy) COMPARISON: [facility], CT PULMONARY ANGIOGRAM, 02/06/2018. . TECHNIQUE: Multiple contiguous axial images were obtained through the chest without contrast. Image s were obtained in suspended respiration using multiple row detector helical technique. Using automa sloane exposure control and adjustment of the mA and/or kV according to patient size, radiation dose was kept as low as reasonably achievable to obtain optimal diagnostic quality images. DICOM format imag e data is available electronically for review and comparison. FINDINGS: Lungs: A few small scattered infiltrates are noted in the left upper lung. There is a small infiltra te in the upper left lower lung as well as some compressive atelectasis of the left lower lung along with a small effusion. There is a small focal infiltrate in the posterior right upper lung. There is some compressive atelectasis in the small effusion in the right lung base. Mediastinum: There is good visualization of the great vessels of the middle mediastinum. No evidenc e of mediastinal or hilar adenopathy/mass. Heart size is enlarged. Pleurae: Small bilateral effusions. Axillae: Unremarkable. Bony Structures: Primary degenerative changes. Miscellaneous: The examination was extended to include the upper abdomen, and both adrenal glands ar e normal in size and configuration. Gallstones in the gallbladder. Bilateral renal cysts. CONCLUSION: 1. Small scattered pulmonary infiltrates are noted in both lungs, left greater than right. 2. There is some compressive atelectasis in both lung bases along with small bilateral pleural effus ions. Electronically signed by: Ned Brooks MD 03/30/2018 3:27 PM EDT
--- NOTE | 2018-03-30 15:55 | P.PNPAL ---
Reason for Visit Reason for visit: a. To assist with evaluation and management of symptoms including: pain, dyspnea. b. To assist medical decision maker(s) with: better understanding of current medical conditions; weighing benefits/burdens of medical treatment options; making medical treatment decisions. Subjective Subjective/Interval History: INTERVAL NOTE: The patient's dyspnea essentially resolved, and apparently the mucous plug cleared. CT of the chest revealed some scattered infiltrates. After discussion with the patient's ex-, he has elected to try to pursue aggressive care by going to a rehab center. Advance Directives Health Care Surrogate: Copy in medical record Health Care Surrogate Name and Number: Liz Lima [phone] Significant change in goals:: Continue aggressive care, transfer to rehab center Objective Vital Signs: Vital Signs 03/29/18 16:00 03/29/18 20:00 03/29/18 21:00 Temperature 97.1 F L 97.2 F L Pulse Rate 72 80 72 Respiratory Rate 20 20 20 Blood Pressure 146/64 H 135/72 Pulse Oximetry 91 L 92 L 03/30/18 00:00 03/30/18 04:00 03/30/18 04:48 Temperature 97.7 F 97.8 F Pulse Rate 73 59 L 66 Respiratory Rate 20 20 17 Blood Pressure 144/57 H 119/58 L Pulse Oximetry 92 L 91 L 95 03/30/18 10:45 Temperature Pulse Rate 88 Respiratory Rate 16 Blood Pressure Pulse Oximetry 89 L Intake & Output 03/29/18 03/30/18 03/30/18 18:59 06:59 18:59 Intake Total 480 / 480 0 / 0 Output Total 1675 / 1675 1200 / 1200 Balance -1195 / -1195 -1200 / -1200 Weight 111.6 kg Intake: Oral 480 / 480 0 / 0 Output: Urine 1675 / 1675 1200 / 1200 Other: Date of Last Bowel Movement 03/28/18 03/28/18 # Bowel Movements 1 0 Physical Exam: CONSTITUTIONAL/GENERAL: This is an overweight, alert patient in no obvious distress. TUBES/LINES/DRAINS: Nasal cannula oxygen, IV access CARDIOVASCULAR: Regular rate and rhythm without murmurs, gallops, or rubs. RESPIRATORY/CHEST: Equal breath sounds. A couple scattered rhonchi GASTROINTESTINAL: Abdomen soft, protuberant. Bowel sounds present. Colostomy with pink stoma, scant drainage. MUSCULOSKELETAL: Extremities without clubbing, cyanosis, or edema. No mottling or clubbing. NEUROLOGICAL: Alert, oriented, cognitively sharp, follows commands. PSYCHIATRIC: No obvious anxiety or psychosis Diagnostic Tests Laboratory: Laboratory Results - last 72 hr 03/26/18 03/26/18 03/28/18 08:05 08:05 08:15 WBC 11.6 H RBC 5.70 Hgb 11.5 L Hct 35.9 L MCV 63.1 L MCH 20.2 L MCHC 32.0 RDW 18.4 H Plt Count 215 MPV 8.5 Neut % (Auto) 58.7 Lymph % (Auto) 34.2 Todd % (Auto) 5.9 Eos % (Auto) 0.9 Baso % (Auto) 0.3 Neut # (Auto) 6.8 Lymph # (Auto) 4.0 Todd # (Auto) 0.7 Eos # (Auto) 0.1 Baso # (Auto) 0.0 WBC Differential . Differential Comment Auto diff final Sodium Potassium Chloride Carbon Dioxide Anion Gap BUN Creatinine Estimated GFR POC Glucose Random Glucose Calcium Phosphorus Albumin Albumin (PEP) 2.55 L Albumin/Globulin Ratio 0.90 L Gdvhf-4-Jfpdclgdk 0.40 H Dloqp-9-Oddsfcykf 0.87 Beta Globulins 0.77 Gamma Globulins 0.80 PEP Pathologist Comment Free [place] Light Chains 76.00 H Free Lambda Light Chain 41.00 H Free [place]/Lambda Ratio 1.85 H 03/28/18 03/29/18 03/29/18 08:15 04:05 07:20 WBC RBC Hgb Hct MCV MCH MCHC RDW Plt Count MPV Neut % (Auto) Lymph % (Auto) Todd % (Auto) Eos % (Auto) Baso % (Auto) Neut # (Auto) Lymph # (Auto) Todd # (Auto) Eos # (Auto) Baso # (Auto) WBC Differential Differential Comment Sodium 134 L 136 Potassium 3.9 4.2 Chloride 94 L 96 L Carbon Dioxide 31.0 32.2 H Anion Gap 9 8 BUN 110 H 97 H Creatinine 4.24 H 3.22 H Estimated GFR 13 L 19 L POC Glucose 187 H Random Glucose 109 H 204 H Calcium 8.7 8.6 Phosphorus 4.7 Albumin 2.1 L Albumin (PEP) Albumin/Globulin Ratio Kjybk-5-Dnkbrebby Sebee-8-Liuqhoqtw Beta Globulins Gamma Globulins PEP Pathologist Comment Free [place] Light Chains Free Lambda Light Chain Free [place]/Lambda Ratio Result Diagrams: 03/28/18 08:15 03/29/18 07:20 Imaging: Head CT 03/12/18 22:57 CONCLUSION: No acute intracranial findings. Abdomen/Bladder Ultrasound 03/25/18 00:00 CONCLUSION: 1. There are cysts in the kidneys and minimal prominence of the right renal pelvis. Questionable stone distal ureter versus artifact from adjacent bowel could be further characterized with noncontrast CT examination based on clinical grounds. Abdomen/Pelvis CT 03/26/18 00:00 CONCLUSION: 1. Large distended bladder with Barker as above. 2. Bilateral renal cyst larger more numerous on the right. Chest X-Ray 03/29/18 00:48 CONCLUSION: 1. New complete opacification of the left hemithorax with mediastinal shift to the left abrupt cut off of the left mainstem bronchus most consistent with mucus plugging. 2. Patchy airspace disease remains in the right lung base with blunting of the costophrenic angle. Chest CT 03/30/18 00:00 CONCLUSION: 1. Small scattered pulmonary infiltrates are noted in both lungs, left greater than right. 2. There is some compressive atelectasis in both lung bases along with small bilateral pleural effusions. Procedures: * 03/11/18: Intubated, right femoral central line, left IJ central line placed. * 03/29/18: Extubated Assessment and Plan - Disease Oriented Problem List (1) Respiratory failure (2) COPD (chronic obstructive pulmonary disease) (3) Hypotension (4) Acute renal insufficiency (5) Hypernatremia (6) Metabolic acidosis Pertinent Non-Medical Issues: Psychosocial: . Has 2 daughters (Marisol and Lorie) and 4 sons ( Inderjit, Aidan, Edgard Jr and Yo). Family reports Yo has severe autism, not capacitated. Ex- Liz is HCS. Spiritual: Unknown. Legal: Patient has capacity for decision-making, and he has designated his ex- Liz has HCS now. Ethical issues impacting care: No known concerns at this time. Important Contacts: * Liz Lima (healthcare surrogate) -- ex-/mother to patient's daughter Tegan ([phone]) * Marisol Dick, daughter: [phone] * Lorie Timmons, daughter: [phone] * Yury Lima JR, son: * Lorie Lieberman-- this is daughter Zamzam Timmons listed in EMR * Candelaria Land-- relationship unknown, daughter Yvette Tyson does not know anyone by this name; [phone] (left VM). * Izabela Beasley, sister: #[phone] * Radha Nguyen, sister: #[phone] Prognosis: Mr. Lima is an 82-year-old male with recent diagnosis of colon cancer status post surgical resection, COPD, acute kidney injury, required pressor support, mechanical ventilation and now possible need for hemodialysis. Although he was able to be extubated, he is at high risk of acute decompensation, and continues to have underlying COPD and renal failure. He is appropriate for hospice services when his goals become comfort oriented. Code Status: Full Code Plan: * DO NOT RESUSCITATE, per request of patient 03/29/18 * DECISION-MAKING: Patient has capacity for decision-making; he has designated his ex- Liz as [facility] [phone]. * GOALS: The patient wants to continue aggressive goals, and is planning to go to a rehab center. Patient and [facility] Liz are aware that it is highly likely that he will have other setbacks in the near future, and that hospice services remain an appropriate option. * SYMPTOMS: Pain: sources may include cancer, tubes, lines, bedbound status; he denies pain at this time. Dyspnea: On nasal O2 and breathing comfortably now. * Palliative care will continue to follow throughout hospital course to assist with symptom management and clarification of goals as needed. Time Spent Total Floor Time (mins): 28 Face to Face Time (mins): 12 >50% Time in Counseling or Coordination of Care: Yes Attestation Attestation: To help prompt me to consider important information that might be impacting today's encounter and assessment, information from prior notes written by myself or my colleagues may have been "brought forward" into today's note. My signature on this note, however, is an attestation that I personally performed the exam, history, and/or decision-making noted today, and, unless otherwise indicated, the interactions with patient, family, and staff as well as the review of records all occurred today. I also attest that the listed assessment and stated plan reflect my best clinical judgment today based on the combination of historical information, prior notes, and today's exam/ interactions. When time spent is documented, it refers only to time spent today by the signer, or if indicated, combined time spent today by collaborating physician/nurse practitioner.
--- NOTE | 2018-03-30 17:19 | P.PN ---
Subjective Interval history: Patient is in good spirits today, when asked if he would like to go to rehab he was very positive and his response. His ex- is at bedside and encouraging part of his life. Physical Exam Vital signs: Vital Signs 03/29/18 20:00 03/29/18 21:00 03/30/18 00:00 Temperature 97.2 F L 97.7 F Pulse Rate 80 72 73 Respiratory Rate 20 20 20 Blood Pressure 135/72 144/57 H Pulse Oximetry 92 L 92 L 03/30/18 04:00 03/30/18 04:48 03/30/18 10:45 Temperature 97.8 F Pulse Rate 59 L 66 88 Respiratory Rate 20 17 16 Blood Pressure 119/58 L Pulse Oximetry 91 L 95 89 L 03/30/18 15:49 Temperature Pulse Rate 74 Respiratory Rate 17 Blood Pressure Pulse Oximetry Intake & Output 03/29/18 03/30/18 03/30/18 18:59 06:59 18:59 Intake Total 480 / 480 0 / 0 Output Total 1675 / 1675 1200 / 1200 Balance -1195 / -1195 -1200 / -1200 Weight 111.6 kg Intake: Oral 480 / 480 0 / 0 Output: Urine 1675 / 1675 1200 / 1200 Other: Date of Last Bowel Movement 03/28/18 03/28/18 # Bowel Movements 1 0 Narrative: GENERAL: AAOx3, no acute distress, good mood today SKIN: Warm and dry. No rashes HEAD: Atruamtic, normocephalic. EYES: No scleral icterus. No injection or drainage. ENT: Moist mucous membranes, patent nares, no erythema of oropharynx. NECK: Supple, trachea midline. No JVD or lymphadenopathy. Normal thyroid. CARDIOVASCULAR: Regular rate and rhythm. No murmurs, gallops, or rubs. RESPIRATORY: Breath sounds absent in left lung gomez, scattered wheezing and right. . No accessory muscle use. GASTROINTESTINAL: Abdomen soft, non-tender, nondistended, normal active bowel sounds MUSCULOSKELETAL: No cyanosis, or edema. NEURO: CN II-XII grossly intact, no focal deficits, no slurring of speech - Urinary Catheter Management Indwelling Urethral Catheter Cath placed during this visit: yes Urethral indwelling: Yes Reason for continuing: Acute urinary retention Insertion date: 03/21/18 Insertion time: 12:00 Straight Cath placed during this visit: no Urethral indwelling: Yes Reason for continuing: Chronic Urinary Retention Results - Labs CBC & Chem 7: 03/28/18 08:15 03/29/18 07:20 - Imaging Impressions Chest CT 03/30/18 00:00 CONCLUSION: 1. Small scattered pulmonary infiltrates are noted in both lungs, left greater than right. 2. There is some compressive atelectasis in both lung bases along with small bilateral pleural effusions. Assessment and Plan - Assessment (1) Acute renal insufficiency Code(s): N28.9 - Disorder of kidney and ureter, unspecified Status: Acute (2) Respiratory failure Code(s): J96.90 - Respiratory failure, unspecified, unspecified whether with hypoxia or hypercapnia Status: Resolved (3) COPD (chronic obstructive pulmonary disease) Code(s): J44.9 - Chronic obstructive pulmonary disease, unspecified Status: Chronic - Plan 82M with paroxysmal atrial fibrillation, HTN, CKD, and COPD admitted 03/11 after he presented to the ER with complaints of "not feeling well" and found to be in multiorgan failure requiring emergent intubation and pressors. 03/29 = patient has an improved affect today, no longer as depressed. He requested a hospice consult 03/30 = absent lung sounds in left lung field, chest x-ray shows total opacity of left lobe, CT report is less impressive ANISH superimposed on CKD CT a/p done yesterday showing a distended bladder to the umbilicus and the Barker in the prostatic urethra Creatinine slowly improving but hovering around 3-4 range Nephrology following, hopefully patient will not need HD Lasix decreased to daily dosing rather than twice daily Renally dose meds and avoid nephrotoxic agents Continue Flomax and Barker for urinary retention Acute hypoxic respiratory failure, COPD Intubated 03/11-03/16 Continue supplemental O2 PRN Continue scheduled Atrovent nebs Complete opacification of left lung Absent breath sounds, opacification on chest x-ray, CT report is less impressive Mucus plugging suspected Consult pulmonology for recommendations CHF No current exacerbation Echocardiogram shows ejection fraction of 35% Continue current therapy HTN Continue hydralazine and Coreg Clonidine PRN Paroxysmal atrial fibrillation with RVR Now rate controlled Continue amiodarone and CoregKwame Appreciate cardiology consult COPD Continue duo nebs as needed and supplemental oxygen as needed Depression Improved affect today, smiling Appreciate palliative care consult DVT prophylaxis Kwame Procedures - Arterial Line Size (Gauge): 18
--- NOTE | 2018-03-30 19:51 | MB ---
cc: Rodrick Hoang MD, V J MD DATE: 03/30/2018 REASON FOR CONSULTATION: Pulmonary infiltrates. HISTORY OF PRESENT ILLNESS: This is an 82-year-old man who was initially admitted via the emergency room with a history of weakness, diaphoresis and tachycardia. The patient has a prior history of carcinoma of the colon. He was seen in the ER where he had altered mental status and was hypotensive and thus had to be emergently intubated and ventilated. He was then treated for sepsis and respiratory failure, placed on pressors and antibiotics and was on ventilator support for more than 3 days. The patient was subsequently weaned off the ventilator and extubated and had been on antibiotic therapy and bronchodilator therapy, but required high concentrations of oxygen to maintain hid saturation above 92. During his hospital stay, he was noted to have atrial fibrillation with rapid ventricular response and also found to have gallstones in the gallbladder and infiltrates in both lung bases, for which he received broad spectrum antibiotic therapy. PAST MEDICAL HISTORY: History for COPD, history of cancer of the colon with resection and colostomy placement, history of hyperlipidemia and hypertension. No history of diabetes. He has had right knee replacement surgery. ALLERGIES: NO KNOWN DRUG ALLERGIES. SOCIAL HISTORY: The patient smoked 1 to 2 packs per day for 35 years. Drank alcohol in the past, but not recently. FAMILY HISTORY: Father in an accident. Mother of old age. REVIEW OF SYSTEMS: The patient has been overweight. He has had leg swelling. He has joint pain. He has dizzy attacks. He has postnasal drip and cough. He has wheezing and epigastric distress and nausea. He has trouble ambulating. He has depression and anxiety. PHYSICAL EXAMINATION: GENERAL: This is an obese, elderly man is alert. Face is plethoric. VITAL SIGNS: Blood pressure 138/80, pulse is 82, respirations 20, temperature 97.6. HEENT: Head is normocephalic. Pupils are reactive and equal. Tongue is moist. Nasal mucosa edematous. Throat was clear. NECK: Supple with mild venous distention. Trachea midline. No thyroid enlargement. CHEST: Distant breath sounds with fine crackles of the lung bases. HEART: Sounds are irregular S1 and S2 with no definite murmur. ABDOMEN: Soft, obese without masses. No organomegaly or tenderness. EXTREMITIES: Varicosities and 1+ edema. Decreased peripheral pulses. NEUROLOGIC: Reflexes are 1+ with no gross motor deficits. Cranial nerves grossly intact. RECTAL: Deferred. SKIN: Dry and cool. IMPRESSION: 1. Chronic obstructive pulmonary disease with emphysema. 2. Bilateral lung infiltrates, probable resolving pneumonia versus pulmonary edema. 3. Atrial fibrillation and ASHD. 4. Hypertension and hypertensive cardiovascular disease. 5. Acute kidney injury, resolving. PLAN: 1. The patient has been placed on O2 at 5 liters and we will get a blood gas study on oxygen. Continue with DuoNeb nebulizer solution q.i.d. We will also continue with Eliquis 2.5 mg b.i.d, amiodarone 200 mg b.i.d. He will be sent for a pulmonary function study at the bedside. Symbicort 160/4.5 mcg 1 puff twice daily will be added. The patient will be started on physical therapy and incentive spirometry at the bedside every 2 hours. Followup chest x-ray later this week. I will follow the case with you, Dr. Alatorre. Thank you for this consultation. VDavid Hoang MD VJD/ , 07:24 PM , 07:37 PM
[2018-03-30 19:53] LABS: ABG Base Excess 11.2 mmol/L (-2-2); ABG PCO2 46 mmHg (38-42); ABG PO2 56 mmHg (61-120)
[2018-03-31 07:35] LABS: Hematocrit 39.2 % (39.0-51.0); Hemoglobin 12.4 gm/dL (13.0-17.0); Mean Corpuscular HGB Conc 31.5 % (32.0-36.0); Mean Corpuscular Hemoglobin 20.1 pg (27.0-34.0); Mean Platelet Volume 8.5 fL (7.0-11.0); Platelet Count 259 th/mm3 (150-450); Red Blood Count 6.14 mil/mm3 (4.50-5.90); Red Cell Distribution Width 18.7 % (11.6-17.2); White Blood Count 19.9 th/mm3 (4.0-11.0)
[2018-03-31 08:13] LABS: Calcium 6.7 mg/dL (8.5-10.1); Carbon Dioxide 33.8 meq/L (21.0-32.0); Potassium 3.4 meq/L (3.5-5.1)
[2018-03-31 08:28] LABS: Total Protein 6.5 g/dL (6.4-8.2)
[2018-03-31] MEDS: Amiodarone 200 MG Tablet PO SCH ×2 (09:21→21:07)
[2018-03-31] MEDS: Senna/Docusate Sodium 8.6/50 MG Tablet PO SCH ×2 (09:21→21:08)
[2018-03-31] MEDS: guaiFENesin 600 MG ER Tablet PO SCH ×2 (09:21→21:07)
[2018-03-31] MEDS: Carvedilol 12.5 MG Tablet PO SCH ×2 (09:21→21:07)
[2018-03-31] MEDS ORDERED: Calcium Chloride Inj 0.3 GM in Sodium Chlor 0.9% Inj 100 ML IV.SIG ONE (10:00)
[2018-03-31] MEDS: Chlorhexidine 0.12% Oral Kit 15 ML UDC OROPHARYNG SCH ×2 (10:17→21:03)
--- NOTE | 2018-03-31 10:49 | P.PNCA ---
<Netta Serna N - Last Filed: 03/31/18 10:39> Subjective Interval history: General: Patient denies fevers, chills, and recent travel. HEENT: Patient denies headache, sore throat, difficulty swallowing. Cardiovascular: Patient denies chest pain, dizziness. Denies sensation of heart beating rapidly or irregularly. No syncope. Respiratory: Denies shortness of breath. Chest discomfort when he coughs. Denies coughing wheezing or hemoptysis. GI: Patient denies nausea, vomiting, diarrhea, abdominal pain, bloody stools. Musculoskeletal: Patient denies joint pain or edema. Denies calf pain or edema. Neurovascular: Patient denies numbness, tingling, weakness in extremities. Denies headache. Endocrine: Denies polyuria and polydipsia. Hematologic: Denies easy bruising. Skin: Denies rash or itching. Physical Exam Vital signs: Vital Signs 03/30/18 10:45 03/30/18 11:00 03/30/18 12:00 Temperature 97.2 F L Pulse Rate 88 80 74 Respiratory Rate 16 16 Blood Pressure 134/60 Pulse Oximetry 89 L 88 L 03/30/18 15:00 03/30/18 15:49 03/30/18 16:00 Temperature 97.0 F L Pulse Rate 71 74 73 Respiratory Rate 16 17 Blood Pressure 145/65 H Pulse Oximetry 93 L 03/30/18 20:00 03/30/18 20:14 03/31/18 00:00 Temperature 98.1 F 97.8 F Pulse Rate 80 85 70 Respiratory Rate 20 21 20 Blood Pressure 127/61 138/64 Pulse Oximetry 92 L 91 L 93 L 03/31/18 04:00 03/31/18 08:00 03/31/18 08:25 Temperature 98.1 F 98.2 F Pulse Rate 73 141 H 73 Respiratory Rate 20 18 14 Blood Pressure 127/58 L 107/56 L Pulse Oximetry 91 L 89 L 80 L 03/31/18 10:37 Temperature Pulse Rate 100 H Respiratory Rate 14 Blood Pressure Pulse Oximetry Intake & Output 03/30/18 03/31/18 03/31/18 18:59 06:59 18:59 Intake Total 600 / 600 720 / 720 Output Total 1999 / 1999 1600 / 1600 Balance -1400 / -1400 -880 / -880 Weight 110 kg Intake: Oral 600 / 600 720 / 720 Output: Urine 1999 / 1999 1600 / 1600 Other: Date of Last Bowel Movement 03/28/18 # Bowel Movements 0 Narrative: GENERAL: This is a well-nourished, well-developed patient, in no apparent distress. Patient speaks in clear complete sentences. Patient is pleasant. HEENT: Head is atraumatic and normocephalic. Neck is supple without lymphadenopathy and trachea is midline. No JVD or carotid bruits. CARDIOVASCULAR: Regular rate and rhythm without murmurs, gallops, or rubs. RESPIRATORY: Lungs clear bilaterally upper lobes and crackles noted bilaterally lower lobes. No wheezes, or rhonchi. Chest wall is nontender. No use of accessory muscles. GASTROINTESTINAL: Abdomen is nontender, nondistended. Abdomen soft. No obvious pulsatile mass or bruit. No CVA tenderness. Strong femoral pulses bilaterally. Normal bowel sounds in all quadrants. MUSCULOSKELETAL: Patient is moving upper and lower extremities freely. No calf tenderness or edema, no Homans sign. Strong pulses in upper and lower extremities. NEUROLOGICAL: Patient is alert and oriented. Cranial nerves 2-12 are grossly intact. No focal deficits and speech is clear. SKIN: No rash and turgor is normal. - Urinary Catheter Management Indwelling Urethral Catheter Cath placed during this visit: yes Urethral indwelling: Yes Reason for continuing: Acute urinary retention Insertion date: 03/21/18 Insertion time: 12:00 Straight Cath placed during this visit: no Urethral indwelling: Yes Reason for continuing: Chronic Urinary Retention Assessment and Plan - Assessment (1) Chest pain, atypical Code(s): R07.89 - Other chest pain Status: Acute (2) COPD (chronic obstructive pulmonary disease) Code(s): J44.9 - Chronic obstructive pulmonary disease, unspecified Status: Chronic (3) Hypotension Code(s): I95.9 - Hypotension, unspecified Status: Acute (4) Dyspnea Code(s): R06.00 - Dyspnea, unspecified Status: Acute (5) Cardiomyopathy Code(s): I42.9 - Cardiomyopathy, unspecified Status: Acute (6) Congestive heart failure (CHF) Code(s): I50.9 - Heart failure, unspecified Status: Acute (7) Obesity Code(s): E66.9 - Obesity, unspecified Status: Acute (8) Renal insufficiency Code(s): N28.9 - Disorder of kidney and ureter, unspecified Status: Acute - Plan Patient currently atrial flutter with rapid ventricular response in 130s-140s, patient had not received morning medication at this time. Refused twelve-lead EKG. Continue with current cardiac treatment. Patient is refusing to get out of bed and participate in any activity. Patient states that he just wants to be left alone and he wants to . Patient is requesting that nothing else be done. Palliative care evaluation in progress. Continue to encourage patient to increase activity every day to aid in increasing his strength and helping him get better. Will continue to follow patient during hospitalization. The patient was seen and evaluated by Dr. Esparza who participated in care, management and decision making. Procedures - Arterial Line Size (Gauge): 18 <Joel Esparza - Last Filed: 03/31/18 12:56> Physical Exam Vital signs: Vital Signs 03/30/18 15:00 03/30/18 15:49 03/30/18 16:00 Temperature 97.0 F L Pulse Rate 71 74 73 Respiratory Rate 16 17 Blood Pressure 145/65 H Pulse Oximetry 93 L 03/30/18 20:00 03/30/18 20:14 03/31/18 00:00 Temperature 98.1 F 97.8 F Pulse Rate 80 85 70 Respiratory Rate 20 21 20 Blood Pressure 127/61 138/64 Pulse Oximetry 92 L 91 L 93 L 03/31/18 04:00 03/31/18 08:00 03/31/18 08:25 Temperature 98.1 F 98.2 F Pulse Rate 73 149 H 73 Respiratory Rate 20 18 14 Blood Pressure 127/58 L 107/56 L Pulse Oximetry 91 L 89 L 80 L 03/31/18 10:37 Temperature Pulse Rate 100 H Respiratory Rate 14 Blood Pressure Pulse Oximetry Intake & Output 03/30/18 03/31/18 03/31/18 18:59 06:59 18:59 Intake Total 600 / 600 720 / 720 Output Total 1999 1600 / 1600 Balance -1400 / -1400 -880 / -880 Weight 242 lb 8.136 oz Intake: Oral 600 / 600 720 / 720 Output: Urine 1999 1600 / 1600 Other: Date of Last Bowel Movement 03/28/18 # Bowel Movements 0 - Urinary Catheter Management Indwelling Urethral Catheter Cath placed during this visit: no Straight Cath placed during this visit: no Assessment and Plan - Assessment (1) Chest pain, atypical Code(s): R07.89 - Other chest pain Status: Acute (2) COPD (chronic obstructive pulmonary disease) Code(s): J44.9 - Chronic obstructive pulmonary disease, unspecified Status: Chronic (3) Hypotension Code(s): I95.9 - Hypotension, unspecified Status: Acute (4) Dyspnea Code(s): R06.00 - Dyspnea, unspecified Status: Acute (5) Cardiomyopathy Code(s): I42.9 - Cardiomyopathy, unspecified Status: Acute (6) Congestive heart failure (CHF) Code(s): I50.9 - Heart failure, unspecified Status: Acute (7) Obesity Code(s): E66.9 - Obesity, unspecified Status: Acute (8) Renal insufficiency Code(s): N28.9 - Disorder of kidney and ureter, unspecified Status: Acute - Attending Attestation Patient seen and examined. I reviewed and agree with the evaluation and plan as presented. Patient very weak, lacking any motivation, refusing any activity. Thoracentesis planned. I believe his overall long-term prognosis is poor. D/w his family; they have unreasonable expectations concerning his outcome.
--- NOTE | 2018-03-31 12:39 | P.PNNP ---
Subjective Interval history: Patient lying in bed appears comfortable. No verbal complaints. Family by bedside. Physical Exam Vital signs: Vital Signs 03/30/18 15:00 03/30/18 15:49 03/30/18 16:00 Temperature 97.0 F L Pulse Rate 71 74 73 Respiratory Rate 16 17 Blood Pressure 145/65 H Pulse Oximetry 93 L 03/30/18 20:00 03/30/18 20:14 03/31/18 00:00 Temperature 98.1 F 97.8 F Pulse Rate 80 85 70 Respiratory Rate 20 21 20 Blood Pressure 127/61 138/64 Pulse Oximetry 92 L 91 L 93 L 03/31/18 04:00 03/31/18 08:00 03/31/18 08:25 Temperature 98.1 F 98.2 F Pulse Rate 73 141 H 73 Respiratory Rate 20 18 14 Blood Pressure 127/58 L 107/56 L Pulse Oximetry 91 L 89 L 80 L 03/31/18 10:37 Temperature Pulse Rate 100 H Respiratory Rate 14 Blood Pressure Pulse Oximetry Intake & Output 03/30/18 03/31/18 03/31/18 18:59 06:59 18:59 Intake Total 600 / 600 720 / 720 Output Total 1999 1600 / 1600 Balance -1400 / -1400 -880 / -880 Weight 110 kg Intake: Oral 600 / 600 720 / 720 Output: Urine 1999 1600 / 1600 Other: Date of Last Bowel Movement 03/28/18 # Bowel Movements 0 Narrative: GENERAL: Elderly male lying in bed not in respiratory distress. SKIN: Warm and dry. HEAD: Normocephalic. EYES: No scleral icterus. No injection or drainage. NECK: Supple, trachea midline. No JVD or lymphadenopathy. CARDIOVASCULAR: Regular rate and rhythm without murmurs, gallops, or rubs. RESPIRATORY: Breath sounds equal bilaterally. No accessory muscle use. GASTROINTESTINAL: Abdomen soft, non-tender, nondistended. MUSCULOSKELETAL: No cyanosis, 1+ pitting edema lower legs. - Urinary Catheter Management Indwelling Urethral Catheter Cath placed during this visit: yes Urethral indwelling: Yes Reason for continuing: Acute urinary retention Insertion date: 03/21/18 Insertion time: 12:00 Straight Cath placed during this visit: no Urethral indwelling: Yes Reason for continuing: Chronic Urinary Retention Assessment and Plan - Assessment (1) Acute renal insufficiency Code(s): N28.9 - Disorder of kidney and ureter, unspecified Status: Acute Plan: UOP much improved with adjustment of Barker and renal indices continue to improve. We will change to p.o. furosemide with p.o. potassium chloride. Repeat BMP tomorrow. No indication for renal replacement therapy. The patient will be seen on a as needed basis. Please call if needed. Patient does need to follow with urology post discharge. Medications should be adjusted for the patient's estimated GFR if clinically indicated. Avoid agents with significant potential for nephrotoxicity possible including NSAIDs for analgesia, iodine contrast agents. Gadolinium is contraindicated if the GFR is below 30. (2) Hypertension Code(s): I10 - Essential (primary) hypertension Status: Acute (3) COPD (chronic obstructive pulmonary disease) Code(s): J44.9 - Chronic obstructive pulmonary disease, unspecified Status: Chronic Plan: CXR ordered Noted leukocytosis. Procedures - Arterial Line Size (Gauge): 18
[2018-03-31] MEDS: RESP: Acetylcysteine 10% 4 ML Neb INH SCH ×3 (13:52→20:09)
--- NOTE | 2018-03-31 15:22 | P.PN ---
Subjective Interval history: Patient had some increased work of breathing overnight, requiring 6 L of oxygen via nasal cannula and is tachypneic. He has a complete opacity of his left lobe with no air passage to auscultation. He has been offered bronchial wash for mucus plugging during this hospitalization but has declined. Physical Exam Vital signs: Vital Signs 03/30/18 15:49 03/30/18 16:00 03/30/18 20:00 Temperature 98.1 F Pulse Rate 74 73 80 Respiratory Rate 17 20 Blood Pressure 127/61 Pulse Oximetry 92 L 03/30/18 20:14 03/31/18 00:00 03/31/18 04:00 Temperature 97.8 F 98.1 F Pulse Rate 85 70 73 Respiratory Rate 21 20 20 Blood Pressure 138/64 127/58 L Pulse Oximetry 91 L 93 L 91 L 03/31/18 08:00 03/31/18 08:25 03/31/18 08:45 Temperature 98.2 F Pulse Rate 149 H 73 Respiratory Rate 18 14 16 Blood Pressure 107/56 L Pulse Oximetry 89 L 80 L 89 L 03/31/18 10:37 03/31/18 11:00 03/31/18 12:00 Temperature 99.1 F Pulse Rate 100 H 61 Respiratory Rate 14 16 20 Blood Pressure 117/55 L Pulse Oximetry 91 L 88 L 03/31/18 13:54 Temperature Pulse Rate 101 H Respiratory Rate 14 Blood Pressure Pulse Oximetry Intake & Output 03/30/18 03/31/18 03/31/18 18:59 06:59 18:59 Intake Total 600 / 600 720 / 720 Output Total 1999 1600 / 1600 Balance -1400 / -1400 -880 / -880 Weight 110 kg Intake: Oral 600 / 600 720 / 720 Output: Urine 1999 1600 / 1600 Other: Date of Last Bowel Movement 03/28/18 # Bowel Movements 0 Narrative: GENERAL: AAOx3, pleasant, but underlying difficulty with breathing, obese SKIN: Warm and dry. No rashes HEAD: Atruamtic, normocephalic. EYES: No scleral icterus. No injection or drainage. ENT: Moist mucous membranes, patent nares, no erythema of oropharynx. NECK: Supple, trachea midline. No JVD or lymphadenopathy. Normal thyroid. CARDIOVASCULAR: Regular rate and rhythm. No murmurs, gallops, or rubs. RESPIRATORY: Breath sounds at present on left lung. Right lung is mostly clear. No accessory muscle use. GASTROINTESTINAL: Abdomen soft, non-tender, nondistended, normal active bowel sounds MUSCULOSKELETAL: No cyanosis, or edema. NEURO: CN II-XII grossly intact, no focal deficits, no slurring of speech - Urinary Catheter Management Indwelling Urethral Catheter Cath placed during this visit: yes Urethral indwelling: Yes Reason for continuing: Acute urinary retention Insertion date: 03/21/18 Insertion time: 12:00 Straight Cath placed during this visit: no Urethral indwelling: Yes Reason for continuing: Chronic Urinary Retention Results - Labs CBC & Chem 7: 03/31/18 06:41 03/31/18 06:41 Laboratory Results - last 24 hr 03/30/18 03/31/18 03/31/18 19:44 06:41 06:41 WBC 19.9 H RBC 6.14 H Hgb 12.4 L Hct 39.2 MCV 64.0 L MCH 20.1 L MCHC 31.5 L RDW 18.7 H Plt Count 259 MPV 8.5 Puncture Site Left radial Patient Temperature 98.6 O2 Saturation 88 L* ABG pH 7.50 H ABG pCO2 46 H ABG pO2 56 L* ABG HCO3 35 H ABG O2 Content 15.7 ABG Base Excess 11.2 H ABG Methemoglobin 1.1 Santiago Test Present Hemoglobin 12.7 Carboxyhemoglobin 1.1 O2 Delivery Device Nasal cannula Liter Flow 6.00 Inspired O2 21 Critical Value Yes Sodium 140 Potassium 3.4 L D Chloride 98 Carbon Dioxide 33.8 H Anion Gap 8 BUN 79 H Creatinine 2.33 H Estimated GFR 27 L Random Glucose 123 H Calcium 6.7 L* D Prot Corrected Calcium 7.0 L* Total Protein 6.5 - Imaging Impressions Chest CT 03/30/18 00:00 CONCLUSION: 1. Small scattered pulmonary infiltrates are noted in both lungs, left greater than right. 2. There is some compressive atelectasis in both lung bases along with small bilateral pleural effusions. Assessment and Plan - Assessment (1) Acute renal insufficiency Code(s): N28.9 - Disorder of kidney and ureter, unspecified Status: Acute (2) Respiratory failure Code(s): J96.90 - Respiratory failure, unspecified, unspecified whether with hypoxia or hypercapnia Status: Resolved (3) COPD (chronic obstructive pulmonary disease) Code(s): J44.9 - Chronic obstructive pulmonary disease, unspecified Status: Chronic - Plan 82M with paroxysmal atrial fibrillation, HTN, CKD, and COPD admitted 03/11 after he presented to the ER with complaints of "not feeling well" and found to be in multiorgan failure requiring emergent intubation and pressors. 03/29 = patient has an improved affect today, no longer as depressed. He requested a hospice consult 03/30 = absent lung sounds in left lung field, chest x-ray shows total opacity of left lobe, CT report is less impressive 03/31 = patient developed shortness of breath due to left lung. He is requesting to be put to . His convinced him to accept treatment. ANISH superimposed on CKD CT a/p done yesterday showing a distended bladder to the umbilicus and the Barker in the prostatic urethra Creatinine slowly improving but hovering around 3-4 range Nephrology following, hopefully patient will not need HD Lasix decreased to daily dosing rather than twice daily Renally dose meds and avoid nephrotoxic agents Continue Flomax and Barker for urinary retention Acute hypoxic respiratory failure, COPD Intubated 03/11-03/16 Continue supplemental O2 PRN Continue scheduled Atrovent nebs Complete opacification of left lung Absent breath sounds, opacification on chest x-ray, CT report is less impressive Mucus plugging suspected Consult pulmonology for recommendations Mucomyst added to the treatment plan CHF No current exacerbation Echocardiogram shows ejection fraction of 35% Continue current therapy HTN Continue hydralazine and Coreg Clonidine PRN Paroxysmal atrial fibrillation with RVR Now rate controlled Continue amiodarone and Coreg, Annelisequis Appreciate cardiology consult COPD Continue duo nebs as needed and supplemental oxygen as needed h/o colostomy bag Ex- requested colostomy bag to be changed Depression Affect poor again Appreciate palliative care consult DVT prophylaxis Eliquis Procedures - Arterial Line Size (Gauge): 18
--- NOTE | 2018-03-31 15:23 | P.PNPAL ---
Reason for Visit Reason for visit: a. To assist with evaluation and management of symptoms including: pain, dyspnea. b. To assist medical decision maker(s) with: better understanding of current medical conditions; weighing benefits/burdens of medical treatment options; making medical treatment decisions. Subjective Subjective/Interval History: INTERVAL NOTE: The patient's dyspnea essentially resolved, and apparently the mucous plug cleared. CT of the chest revealed some scattered infiltrates. The patient reports that he "had a bad night" and that he feels "worn out and tired." He says "I just want to go to sleep and not wake up." Earlier in the day, he reportedly refused to work with PT.. The patient appears weak and tired, and he expresses a lack of motivation to try a rehab program, but he acknowledges that "all of my family wants me to go there." GFR is up to 27. Family/Friend Interactions: Patient's daughter Yvette arrived while we were in the room. The patient was able to tell us the story of when his first (Yvette's mother) was on life support near end-of-life when she had breast cancer, and how she had requested to be taken off of life support, and how the family struggled with that but ultimately honored her request and allowed her to peacefully. Daughter Yvette and the patient both agree that they would not want him on life support or resuscitated. The patient signed the community DNR. Advance Directives Health Care Surrogate: Copy in medical record Health Care Surrogate Name and Number: Liz Lima [phone] Significant change in goals:: DNR signed The patient continues to be fluctuating/ambivalent about the decision to go to rehab or not. Objective Vital Signs: Vital Signs 03/30/18 15:49 03/30/18 16:00 03/30/18 20:00 Temperature 98.1 F Pulse Rate 74 73 80 Respiratory Rate 17 20 Blood Pressure 127/61 Pulse Oximetry 92 L 03/30/18 20:14 03/31/18 00:00 03/31/18 04:00 Temperature 97.8 F 98.1 F Pulse Rate 85 70 73 Respiratory Rate 21 20 20 Blood Pressure 138/64 127/58 L Pulse Oximetry 91 L 93 L 91 L 03/31/18 08:00 03/31/18 08:25 03/31/18 08:45 Temperature 98.2 F Pulse Rate 149 H 73 Respiratory Rate 18 14 16 Blood Pressure 107/56 L Pulse Oximetry 89 L 80 L 89 L 03/31/18 10:37 03/31/18 11:00 03/31/18 12:00 Temperature 99.1 F Pulse Rate 100 H 61 Respiratory Rate 14 16 20 Blood Pressure 117/55 L Pulse Oximetry 91 L 88 L 03/31/18 13:54 Temperature Pulse Rate 101 H Respiratory Rate 14 Blood Pressure Pulse Oximetry Intake & Output 03/30/18 03/31/18 03/31/18 18:59 06:59 18:59 Intake Total 600 / 600 720 / 720 Output Total 1999 1600 / 1600 Balance -1400 / -1400 -880 / -880 Weight 110 kg Intake: Oral 600 / 600 720 / 720 Output: Urine 1999 1600 / 1600 Other: Date of Last Bowel Movement 03/28/18 # Bowel Movements 0 Physical Exam: CONSTITUTIONAL/GENERAL: This is an overweight, alert patient in no obvious distress; he appears weak/tired. TUBES/LINES/DRAINS: Nasal cannula oxygen, IV access CARDIOVASCULAR: Regular rate and rhythm without murmurs, gallops, or rubs. RESPIRATORY/CHEST: Equal breath sounds. A couple scattered rhonchi GASTROINTESTINAL: Abdomen soft, protuberant. Bowel sounds present. Colostomy. MUSCULOSKELETAL: Extremities without clubbing, cyanosis, or edema. No mottling or clubbing. NEUROLOGICAL: Alert, oriented, cognitively sharp, follows commands. PSYCHIATRIC: No obvious anxiety or psychosis Diagnostic Tests Laboratory: Laboratory Results - last 72 hr 03/26/18 03/29/18 03/29/18 08:05 04:05 07:20 WBC RBC Hgb Hct MCV MCH MCHC RDW Plt Count MPV Puncture Site Patient Temperature O2 Saturation ABG pH ABG pCO2 ABG pO2 ABG HCO3 ABG O2 Content ABG Base Excess ABG Methemoglobin Santiago Test Hemoglobin Carboxyhemoglobin O2 Delivery Device Liter Flow Inspired O2 Critical Value Sodium 136 Potassium 4.2 Chloride 96 L Carbon Dioxide 32.2 H Anion Gap 8 BUN 97 H Creatinine 3.22 H Estimated GFR 19 L POC Glucose 187 H Random Glucose 204 H Calcium 8.6 Prot Corrected Calcium Total Protein Free [place] Light Chains 76.00 H Free Lambda Light Chain 41.00 H Free [place]/Lambda Ratio 1.85 H 03/30/18 03/31/18 03/31/18 19:44 06:41 06:41 WBC 19.9 H RBC 6.14 H Hgb 12.4 L Hct 39.2 MCV 64.0 L MCH 20.1 L MCHC 31.5 L RDW 18.7 H Plt Count 259 MPV 8.5 Puncture Site Left radial Patient Temperature 98.6 O2 Saturation 88 L* ABG pH 7.50 H ABG pCO2 46 H ABG pO2 56 L* ABG HCO3 35 H ABG O2 Content 15.7 ABG Base Excess 11.2 H ABG Methemoglobin 1.1 Santiago Test Present Hemoglobin 12.7 Carboxyhemoglobin 1.1 O2 Delivery Device Nasal cannula Liter Flow 6.00 Inspired O2 21 Critical Value Yes Sodium 140 Potassium 3.4 L D Chloride 98 Carbon Dioxide 33.8 H Anion Gap 8 BUN 79 H Creatinine 2.33 H Estimated GFR 27 L POC Glucose Random Glucose 123 H Calcium 6.7 L* D Prot Corrected Calcium 7.0 L* Total Protein 6.5 Free [place] Light Chains Free Lambda Light Chain Free [place]/Lambda Ratio Result Diagrams: 03/31/18 06:41 03/31/18 06:41 Imaging: Head CT 03/12/18 22:57 CONCLUSION: No acute intracranial findings. Abdomen/Bladder Ultrasound 03/25/18 00:00 CONCLUSION: 1. There are cysts in the kidneys and minimal prominence of the right renal pelvis. Questionable stone distal ureter versus artifact from adjacent bowel could be further characterized with noncontrast CT examination based on clinical grounds. Abdomen/Pelvis CT 03/26/18 00:00 CONCLUSION: 1. Large distended bladder with Barker as above. 2. Bilateral renal cyst larger more numerous on the right. Chest X-Ray 03/29/18 00:48 CONCLUSION: 1. New complete opacification of the left hemithorax with mediastinal shift to the left abrupt cut off of the left mainstem bronchus most consistent with mucus plugging. 2. Patchy airspace disease remains in the right lung base with blunting of the costophrenic angle. Chest CT 03/30/18 00:00 CONCLUSION: 1. Small scattered pulmonary infiltrates are noted in both lungs, left greater than right. 2. There is some compressive atelectasis in both lung bases along with small bilateral pleural effusions. Procedures: * 03/11/18: Intubated, right femoral central line, left IJ central line placed. * 03/29/18: Extubated Assessment and Plan - Disease Oriented Problem List (1) Respiratory failure (2) COPD (chronic obstructive pulmonary disease) (3) Acute renal insufficiency (4) Metabolic acidosis Pertinent Non-Medical Issues: Psychosocial: . Has 2 daughters (Marisol and Lorie) and 4 sons ( Inderjit, Aidan, Edgard Blair and Yo). Family reports Yo has severe autism, not capacitated. Ex- Liz is HCS. Spiritual: Unknown. Legal: Patient has capacity for decision-making, and he has designated his ex- Liz has HCS now. Ethical issues impacting care: No known concerns at this time. Important Contacts: * Liz Lima (healthcare surrogate) -- ex-/mother to patient's daughter Tegan ([phone]) * Marisol Dick, daughter: [phone] * Lorie Timmons, daughter: [phone] * Yury Lima , son: * Lorie Crandallsmileybill-- this is daughter Zamzam Timmons listed in EMR * Candelaria aLnd-- relationship unknown, daughter Yvette Tyson does not know anyone by this name; [phone] (left VM). * Izabela Gale, sister: #[phone] * Radha Patrick, sister: #[phone] Prognosis: Mr. Lima is an 82-year-old male with recent diagnosis of colon cancer status post surgical resection, COPD, acute kidney injury, required pressor support, mechanical ventilation, and now possible need for hemodialysis. Although he was able to be extubated, he is at high risk of acute decompensation, and continues to have underlying COPD and renal failure. He is appropriate for hospice services when his goals become comfort oriented. Code Status: No Code DNR Plan: * DO NOT RESUSCITATE, per request of patient 03/29/18 * DECISION-MAKING: Patient has capacity for decision-making; he has designated his ex- Liz as [facility] [phone]. * GOALS: The patient's goals fluctuate day-to-day; he has consistently wanted to be DNR, but he is feeling pressure from family to go to rehab and at the same time saying that he really does not want to do that. "I feel bad; I just want to go to sleep and not wake up." * SYMPTOMS: Pain: sources may include cancer, tubes, lines, bedbound status; he denies pain at this time. Dyspnea: On nasal O2 and breathing comfortably now. * Palliative care will continue to follow throughout hospital course to assist with symptom management and clarification of goals as needed. Time Spent Total Floor Time (mins): 41 Face to Face Time (mins): 27 >50% Time in Counseling or Coordination of Care: Yes Attestation Attestation: To help prompt me to consider important information that might be impacting today's encounter and assessment, information from prior notes written by myself or my colleagues may have been "brought forward" into today's note. My signature on this note, however, is an attestation that I personally performed the exam, history, and/or decision-making noted today, and, unless otherwise indicated, the interactions with patient, family, and staff as well as the review of records all occurred today. I also attest that the listed assessment and stated plan reflect my best clinical judgment today based on the combination of historical information, prior notes, and today's exam/ interactions. When time spent is documented, it refers only to time spent today by the signer, or if indicated, combined time spent today by collaborating physician/nurse practitioner.
[2018-03-31] MEDS: Potassium Chloride 10 MEQ ER Capsule PO SCH ×2 (15:35→21:07)
[2018-03-31] MEDS: Lidocaine 5% Patch T-DERMAL SCH (15:43)
[2018-03-31] MEDS: Furosemide 40 MG Tablet PO SCH (18:05)
--- NOTE | 2018-03-31 19:27 | P.PN ---
Subjective Interval history: Has some rsep distress and low O2 sat. On a Simple mask and FIO2 60 %. No chest pain or fever. Physical Exam Vital signs: Vital Signs 03/30/18 20:00 03/30/18 20:14 03/31/18 00:00 Temperature 98.1 F 97.8 F Pulse Rate 80 85 70 Respiratory Rate 20 21 20 Blood Pressure 127/61 138/64 Pulse Oximetry 92 L 91 L 93 L 03/31/18 04:00 03/31/18 08:00 03/31/18 08:25 Temperature 98.1 F 98.2 F Pulse Rate 73 149 H 73 Respiratory Rate 20 18 14 Blood Pressure 127/58 L 107/56 L Pulse Oximetry 91 L 89 L 80 L 03/31/18 08:45 03/31/18 10:37 03/31/18 11:00 Temperature Pulse Rate 100 H Respiratory Rate 16 14 16 Blood Pressure Pulse Oximetry 89 L 91 L 03/31/18 12:00 03/31/18 13:54 03/31/18 16:00 Temperature 99.1 F 98.0 F Pulse Rate 61 101 H 81 Respiratory Rate 20 14 20 Blood Pressure 117/55 L 138/82 Pulse Oximetry 88 L 84 L 03/31/18 17:14 03/31/18 18:00 Temperature Pulse Rate 101 H Respiratory Rate 16 Blood Pressure Pulse Oximetry 93 L Intake & Output 03/31/18 03/31/18 04/01/18 06:59 18:59 06:59 Intake Total 720 / 720 330 / 330 Output Total 1600 / 1600 1275 / 1275 Balance -880 / -880 -945 / -945 Weight 110 kg Intake: Oral 720 / 720 330 / 330 Output: Urine 1600 / 1600 1275 / 1275 Other: Date of Last Bowel Movement 03/28/18 # Bowel Movements 0 2 Narrative: GENERAL: AAOx3, pleasant, W/M obese and dyspneic SKIN: Warm and dry. No rashes HEAD: Atraumatic, normocephalic. EYES: No scleral icterus. No injection or drainage. ENT: Moist mucous membranes, patent nares, no erythema of oropharynx. NECK: Supple, trachea midline. No JVD or lymphadenopathy. Normal thyroid. CARDIOVASCULAR: Regular rate and rhythm. No murmurs, gallops, or rubs. RESPIRATORY: Breath sounds decreased all over . Bilateral wheeze.No accessory muscle use. GASTROINTESTINAL: Abdomen soft, non-tender, nondistended, normal active bowel sounds MUSCULOSKELETAL: No cyanosis,but has 1 + edema. NEURO: CN II-XII grossly intact, no focal deficits, no slurring of speech - Urinary Catheter Management Indwelling Urethral Catheter Cath placed during this visit: yes Urethral indwelling: Yes Reason for continuing: Acute urinary retention Insertion date: 03/21/18 Insertion time: 12:00 Straight Cath placed during this visit: no Urethral indwelling: Yes Reason for continuing: Chronic Urinary Retention Results - Labs CBC & Chem 7: 03/31/18 06:41 03/31/18 06:41 Laboratory Results - last 24 hr 03/30/18 03/31/18 03/31/18 19:44 06:41 06:41 WBC 19.9 H RBC 6.14 H Hgb 12.4 L Hct 39.2 MCV 64.0 L MCH 20.1 L MCHC 31.5 L RDW 18.7 H Plt Count 259 MPV 8.5 Puncture Site Left radial Patient Temperature 98.6 O2 Saturation 88 L* ABG pH 7.50 H ABG pCO2 46 H ABG pO2 56 L* ABG HCO3 35 H ABG O2 Content 15.7 ABG Base Excess 11.2 H ABG Methemoglobin 1.1 Santiago Test Present Hemoglobin 12.7 Carboxyhemoglobin 1.1 O2 Delivery Device Nasal cannula Liter Flow 6.00 Inspired O2 21 Critical Value Yes Sodium 140 Potassium 3.4 L D Chloride 98 Carbon Dioxide 33.8 H Anion Gap 8 BUN 79 H Creatinine 2.33 H Estimated GFR 27 L Random Glucose 123 H Calcium 6.7 L* D Prot Corrected Calcium 7.0 L* Total Protein 6.5 - Imaging Impressions Chest CT 03/30/18 00:00 CONCLUSION: 1. Small scattered pulmonary infiltrates are noted in both lungs, left greater than right. 2. There is some compressive atelectasis in both lung bases along with small bilateral pleural effusions. Assessment and Plan - Assessment (1) Cor pulmonale, chronic Code(s): I27.81 - Cor pulmonale (chronic) Status: Acute (2) Acute renal insufficiency Code(s): N28.9 - Disorder of kidney and ureter, unspecified Status: Acute (3) Hypernatremia Code(s): E87.0 - Hyperosmolality and hypernatremia Status: Resolved (4) Metabolic acidosis Code(s): E87.2 - Acidosis Status: Resolved (5) Respiratory failure Code(s): J96.90 - Respiratory failure, unspecified, unspecified whether with hypoxia or hypercapnia Status: Resolved (6) COPD (chronic obstructive pulmonary disease) Code(s): J44.9 - Chronic obstructive pulmonary disease, unspecified Status: Chronic (7) Hypotension Code(s): I95.9 - Hypotension, unspecified Status: Acute (8) Dyspnea Code(s): R06.00 - Dyspnea, unspecified Status: Acute - Plan 1. Will place on a Ventimask 50 % and use BiPAP at HS12/5 CM , FIO2 40 % 2. Continue Diuretic daily. 3. Duonebs q4h. 4. Continue Symbicort 160/4.5 mcg , 2 puffs BID 5. Add Mucomyst 10 % , 2 CC Q6H 6. CBC,BMP in am 7. Solumedrol 40 MG IV BID Procedures - Arterial Line Size (Gauge): 18
[2018-03-31] MEDS: MethylPREDNISolone Sod Succinate Inj 40 MG/ML Vial IV.PUSH SCH (21:08)
[2018-04-01] MEDS: RESP: Acetylcysteine 10% 4 ML Neb INH SCH (04:10)
[2018-04-01 07:14] LABS: Hematocrit 37.4 % (39.0-51.0); Hemoglobin 11.8 gm/dL (13.0-17.0); Mean Corpuscular HGB Conc 31.6 % (32.0-36.0); Mean Corpuscular Hemoglobin 20.2 pg (27.0-34.0); Mean Corpuscular Volume 63.9 fL (80.0-100.0); Mean Platelet Volume 8.5 fL (7.0-11.0); Platelet Count 224 th/mm3 (150-450); Red Blood Count 5.85 mil/mm3 (4.50-5.90); White Blood Count 24.1 th/mm3 (4.0-11.0)
[2018-04-01 07:48] LABS: Calcium 8.7 mg/dL (8.5-10.1); Carbon Dioxide 31.5 meq/L (21.0-32.0); Potassium 4.1 meq/L (3.5-5.1)
[2018-04-01] MEDS: guaiFENesin 600 MG ER Tablet PO SCH ×2 (09:33→20:17)
[2018-04-01] MEDS: Azithromycin 250 MG Tablet PO SCH (09:33)
[2018-04-01] MEDS: MethylPREDNISolone Sod Succinate Inj 40 MG/ML Vial IV.PUSH SCH ×2 (09:33→20:19)
[2018-04-01] MEDS: Furosemide 40 MG Tablet PO SCH ×2 (09:33→17:18)
[2018-04-01] MEDS: Carvedilol 12.5 MG Tablet PO SCH ×2 (09:33→20:17)
[2018-04-01] MEDS: Senna/Docusate Sodium 8.6/50 MG Tablet PO SCH ×2 (09:33→20:19)
[2018-04-01] MEDS: Amiodarone 200 MG Tablet PO SCH ×2 (09:34→20:19)
[2018-04-01] MEDS: Chlorhexidine 0.12% Oral Kit 15 ML UDC OROPHARYNG SCH ×2 (09:34→19:29)
[2018-04-01] MEDS: Potassium Chloride 10 MEQ ER Capsule PO SCH ×2 (09:34→20:19)
[2018-04-01] MEDS: Lidocaine 5% Patch T-DERMAL SCH (09:34)
--- NOTE | 2018-04-01 12:52 | P.PNIM ---
Subjective Interval history: Patient remains oxygen dependent. Resting comfortably without pain. No respiratory distress while on oxygen. Physical Exam Vital signs: Vital Signs 03/31/18 13:54 03/31/18 16:00 03/31/18 17:14 Temperature 98.0 F Pulse Rate 101 H 81 101 H Respiratory Rate 14 20 16 Blood Pressure 138/82 Pulse Oximetry 84 L 03/31/18 18:00 03/31/18 19:50 03/31/18 20:00 Temperature 98.0 F Pulse Rate 88 89 Respiratory Rate 21 Blood Pressure 149/86 H Pulse Oximetry 93 L 88 L 03/31/18 20:12 03/31/18 23:45 04/01/18 03:41 Temperature Pulse Rate 86 134 H 134 H Respiratory Rate 24 20 Blood Pressure Pulse Oximetry 92 L 93 L 04/01/18 03:45 04/01/18 04:00 04/01/18 07:00 Temperature 98.0 F 98.0 F Pulse Rate 137 H 137 H 81 Respiratory Rate 20 17 Blood Pressure 113/71 128/74 Pulse Oximetry 90 L 94 L Intake & Output 03/31/18 04/01/18 04/01/18 18:59 06:59 18:59 Intake Total 330 / 330 221 / 221 Output Total 1275 / 1275 750 / 750 Balance -945 / -945 -529 / -529 Weight 110 kg Intake: Oral 330 / 330 221 / 221 Output: Urine 1275 / 1275 750 / 750 Other: Date of Last Bowel Movement 03/31/18 # Bowel Movements 2 Narrative: GENERAL: NAD, A&Ox3 HEAD: Normocephalic. NECK: Supple, trachea midline. No lymphadenopathy. EYES: No scleral icterus. No injection or drainage. CARDIOVASCULAR: Regular rate and rhythm without murmurs, gallops, or rubs. RESPIRATORY: Breath sounds show decreased auscultation at left compared to right. No accessory muscle use. GASTROINTESTINAL: Abdomen soft, non-tender, nondistended. MUSCULOSKELETAL: No cyanosis, or edema. SKIN: Warm and dry. NEURO: No focal neurological deficits. - Urinary Catheter Management Indwelling Urethral Catheter Cath placed during this visit: yes Urethral indwelling: Yes Reason for continuing: Acute urinary retention Insertion date: 03/21/18 Insertion time: 12:00 Straight Cath placed during this visit: no Urethral indwelling: Yes Reason for continuing: Chronic Urinary Retention Results - Labs CBC & Chem 7: 04/01/18 06:55 04/01/18 06:55 Laboratory Results - last 24 hr 04/01/18 04/01/18 06:55 06:55 WBC 24.1 H RBC 5.85 Hgb 11.8 L Hct 37.4 L MCV 63.9 L MCH 20.2 L MCHC 31.6 L RDW 19.0 H Plt Count 224 MPV 8.5 Sodium 141 Potassium 4.1 Chloride 99 Carbon Dioxide 31.5 Anion Gap 11 BUN 64 H Creatinine 2.11 H Estimated GFR 30 L Random Glucose 246 H D Calcium 8.7 D Assessment and Plan - Assessment (1) Acute renal insufficiency Code(s): N28.9 - Disorder of kidney and ureter, unspecified Status: Acute (2) Respiratory failure Code(s): J96.90 - Respiratory failure, unspecified, unspecified whether with hypoxia or hypercapnia Status: Resolved (3) COPD (chronic obstructive pulmonary disease) Code(s): J44.9 - Chronic obstructive pulmonary disease, unspecified Status: Chronic - Plan 82M admitted with Mylene storm, multiorgan failure, hypotension and respiratory failure ANISH superimposed on CKD Slowly improving Nephrology following Avoid nephrotoxins Continue Barker and Flomax Continue monitoring renal function Acute hypoxic respiratory failure, COPD Intubated 03/11-03/16, now extubated Continue supplemental O2 Continue scheduled Atrovent nebs Complete opacification of left lung Absent breath sounds, opacification on chest x-ray, CT report is less impressive Mucus plugging suspected Pulmonology following Continue Mucomyst CHF No current exacerbation Echocardiogram shows ejection fraction of 35% No change to current therapy HTN Continue baseline treatment Follow blood pressures Adjust treatments as needed continue hydralazine and Coreg Clonidine PRN Paroxysmal atrial fibrillation with RVR Now rate controlled Continue amiodarone and Coreg, Eliquis Cardiology following COPD Continue duo nebs as needed and supplemental oxygen as needed h/o colostomy bag Continue maintenance Depression Continue present treatments palliative care following DVT prophylaxis Eliquis Discharge planning Hospice is consulted per patient's request Palliative care following Patient is not medically stable today, for discharge consideration Procedures - Arterial Line Size (Gauge): 18
--- NOTE | 2018-04-01 14:22 | P.PN ---
Subjective Interval history: He seems better to day. no chest pain . Has some leg edema. Output was good. Physical Exam Vital signs: Vital Signs 03/31/18 16:00 03/31/18 17:14 03/31/18 18:00 Temperature 98.0 F Pulse Rate 81 101 H Respiratory Rate 20 16 Blood Pressure 138/82 Pulse Oximetry 84 L 93 L 03/31/18 19:50 03/31/18 20:00 03/31/18 20:12 Temperature 98.0 F Pulse Rate 88 89 86 Respiratory Rate 21 24 Blood Pressure 149/86 H Pulse Oximetry 88 L 92 L 03/31/18 23:45 04/01/18 03:41 04/01/18 03:45 Temperature Pulse Rate 134 H 134 H 137 H Respiratory Rate 20 Blood Pressure Pulse Oximetry 93 L 04/01/18 04:00 04/01/18 07:00 04/01/18 11:00 Temperature 98.0 F 98.0 F 97.9 F Pulse Rate 137 H 81 69 Respiratory Rate 20 17 17 Blood Pressure 113/71 128/74 137/63 Pulse Oximetry 90 L 94 L 94 L Intake & Output 03/31/18 04/01/18 04/01/18 18:59 06:59 18:59 Intake Total 330 / 330 221 / 221 Output Total 1275 / 1275 750 / 750 Balance -945 / -945 -529 / -529 Weight 110 kg Intake: Oral 330 / 330 221 / 221 Output: Urine 1275 / 1275 750 / 750 Other: Date of Last Bowel Movement 03/31/18 # Bowel Movements 2 Narrative: GENERAL: NAD, A&Ox3. Elderly W/M . HEAD: Normocephalic. NECK: Supple, trachea midline. No lymphadenopathy. EYES: No scleral icterus. No injection or drainage. CARDIOVASCULAR: Irregular rate and rhythm without murmurs, gallops, or rubs. RESPIRATORY: Breath sounds decreased at periphery. Few crackles.No accessory muscle use. GASTROINTESTINAL: Abdomen soft, non-tender, nondistended. MUSCULOSKELETAL: Mild cyanosis,and 1 + edema. SKIN: Warm and dry. NEURO: No focal neurological deficits. - Urinary Catheter Management Indwelling Urethral Catheter Cath placed during this visit: yes Urethral indwelling: Yes Reason for continuing: Acute urinary retention Insertion date: 03/21/18 Insertion time: 12:00 Straight Cath placed during this visit: no Urethral indwelling: Yes Reason for continuing: Chronic Urinary Retention Results - Labs CBC & Chem 7: 04/01/18 06:55 04/01/18 06:55 Laboratory Results - last 24 hr 04/01/18 04/01/18 06:55 06:55 WBC 24.1 H RBC 5.85 Hgb 11.8 L Hct 37.4 L MCV 63.9 L MCH 20.2 L MCHC 31.6 L RDW 19.0 H Plt Count 224 MPV 8.5 Sodium 141 Potassium 4.1 Chloride 99 Carbon Dioxide 31.5 Anion Gap 11 BUN 64 H Creatinine 2.11 H Estimated GFR 30 L Random Glucose 246 H D Calcium 8.7 D Assessment and Plan - Assessment (1) Cor pulmonale, chronic Code(s): I27.81 - Cor pulmonale (chronic) Status: Acute (2) Acute renal insufficiency Code(s): N28.9 - Disorder of kidney and ureter, unspecified Status: Acute (3) Hypernatremia Code(s): E87.0 - Hyperosmolality and hypernatremia Status: Resolved (4) Metabolic acidosis Code(s): E87.2 - Acidosis Status: Resolved (5) Respiratory failure Code(s): J96.90 - Respiratory failure, unspecified, unspecified whether with hypoxia or hypercapnia Status: Resolved (6) COPD (chronic obstructive pulmonary disease) Code(s): J44.9 - Chronic obstructive pulmonary disease, unspecified Status: Chronic (7) Hypotension Code(s): I95.9 - Hypotension, unspecified Status: Acute (8) Dyspnea Code(s): R06.00 - Dyspnea, unspecified Status: Acute - Plan 1. Will place on a N/C 5l and use BiPAP at HS12/5 CM , FIO2 30 % 2. Continue Diuretic daily. 3. Duonebs q6h. 4. Continue Symbicort 160/4.5 mcg , 2 puffs BID 5. Mucomyst 10 % , 2 CC Q6H 6. CBC,CXR BMP in am 7. Solumedrol 40 MG IV BID Procedures - Arterial Line Size (Gauge): 18
--- NOTE | 2018-04-02 07:44 | XR ---
EXAM DATE: 04/02/2018 7:40 AM EDT AGE/SEX: 82 years / Male INDICATIONS: Shortness of breath. CLINICAL DATA: This is the patient's subsequent encounter. Patient reports that signs and symptoms h ave been present for 2 days and indicates a pain score of Nonresponsive. MEDICAL/SURGICAL HISTORY: Carcinoma, colon. Chronic obstructive pulmonary disease. Non-respons chayo. COMPARISON: [facility] [place], CHEST 1V SINGLE AP, 03/29/2018. [facility] [place], CT CHEST W/O CONTRAST, 03/30/2018. . FINDINGS: AP portable semiupright view of the chest demonstrates stable moderate enlargement of the cardiac negrito [place] with mild volume loss identified within the left hemithorax and blunting of the left costophr enic angle. There is hazy airspace density involving the basilar aspect of the right lower lobe. The remainder of the lungs are clear. Pulmonary vasculature is normal in caliber. Osseous structures are unremarkable. CONCLUSION: Stable bilateral basilar airspace consolidation. Electronically signed by: Gin Che MD 04/02/2018 7:43 AM EDT
[2018-04-02] MEDS: guaiFENesin 600 MG ER Tablet PO SCH ×2 (09:22→20:26)
[2018-04-02] MEDS: Senna/Docusate Sodium 8.6/50 MG Tablet PO SCH ×2 (09:22→20:26)
[2018-04-02] MEDS: Potassium Chloride 10 MEQ ER Capsule PO SCH ×2 (09:22→20:26)
[2018-04-02] MEDS: Lidocaine 5% Patch T-DERMAL SCH (09:22)
[2018-04-02] MEDS: Azithromycin 250 MG Tablet PO SCH (09:22)
[2018-04-02] MEDS: Carvedilol 12.5 MG Tablet PO SCH ×2 (09:22→20:26)
[2018-04-02] MEDS: Amiodarone 200 MG Tablet PO SCH ×2 (09:22→20:26)
[2018-04-02] MEDS: MethylPREDNISolone Sod Succinate Inj 40 MG/ML Vial IV.PUSH SCH ×2 (09:23→20:26)
--- NOTE | 2018-04-02 11:49 | P.PNIM ---
Subjective Interval history: Chest x-ray from today shows an interval improvement in the patient's left lung with resolution of opacity. He remains oxygen dependent at 6 L/min so is not yet ready for discharge. Patient has no new complaints. He says he is feeling better today compared to previous days. Physical Exam Vital signs: Vital Signs 04/01/18 12:00 04/01/18 15:00 04/01/18 16:43 Temperature 97.4 F L Pulse Rate 63 64 70 Respiratory Rate 17 16 Blood Pressure 157/72 H Pulse Oximetry 93 L 93 L 04/01/18 20:00 04/01/18 20:31 04/01/18 23:00 Temperature 97.3 F L 97.6 F Pulse Rate 73 76 81 Respiratory Rate 18 20 19 Blood Pressure 138/61 146/66 H Pulse Oximetry 93 L 92 L 04/02/18 00:47 04/02/18 04:00 04/02/18 04:18 Temperature Pulse Rate 79 67 66 Respiratory Rate 18 Blood Pressure Pulse Oximetry 95 04/02/18 08:00 04/02/18 08:40 04/02/18 08:41 Temperature 98.4 F Pulse Rate 77 68 Respiratory Rate 22 16 Blood Pressure 124/68 Pulse Oximetry 94 L 95 Intake & Output 04/01/18 04/02/18 04/02/18 18:59 06:59 18:59 Intake Total 480 / 480 Output Total 1000 / 1000 Balance -520 / -520 Weight 109 kg Intake: Oral 480 / 480 Output: Urine 1000 / 1000 Other: Date of Last Bowel Movement 03/31/18 Narrative: GENERAL: NAD, A&Ox3, nasal cannula oxygen in place HEAD: Normocephalic. NECK: Supple, trachea midline. No lymphadenopathy. EYES: No scleral icterus. No injection or drainage. CARDIOVASCULAR: Regular rate and rhythm without murmurs, gallops, or rubs. RESPIRATORY: Breath sounds equal bilaterally. No accessory muscle use. GASTROINTESTINAL: Abdomen soft, non-tender, nondistended. MUSCULOSKELETAL: No cyanosis, or edema. SKIN: Warm and dry. NEURO: No focal neurological deficits. - Urinary Catheter Management Indwelling Urethral Catheter Cath placed during this visit: yes Urethral indwelling: Yes Reason for continuing: Acute urinary retention Insertion date: 03/21/18 Insertion time: 12:00 Straight Cath placed during this visit: no Urethral indwelling: Yes Reason for continuing: Chronic Urinary Retention Results - Labs CBC & Chem 7: 04/01/18 06:55 04/01/18 06:55 - Imaging Impressions Chest X-Ray 04/02/18 00:00 CONCLUSION: Stable bilateral basilar airspace consolidation. Assessment and Plan - Assessment (1) Acute renal insufficiency Code(s): N28.9 - Disorder of kidney and ureter, unspecified Status: Acute (2) Respiratory failure Code(s): J96.90 - Respiratory failure, unspecified, unspecified whether with hypoxia or hypercapnia Status: Resolved (3) COPD (chronic obstructive pulmonary disease) Code(s): J44.9 - Chronic obstructive pulmonary disease, unspecified Status: Chronic - Plan 82M admitted with A. fib, multiorgan failure, hypotension and respiratory failure Resolution of left lung opacification on latest x-ray. Continue oxygen support and monitoring for patient to have improvement in respiratory status. Currently the patient's plan will be to go to a alf facility at discharge. Decreased need for oxygen needed prior to discharge. ANISH superimposed on CKD Slowly improving Nephrology following Avoid nephrotoxins Continue Barker and Flomax Continue monitoring renal function Acute hypoxic respiratory failure, COPD Intubated 03/11-03/16, now extubated Continue supplemental O2 Continue scheduled Atrovent nebs Complete opacification of left lung Absent breath sounds, opacification on chest x-ray, CT report is less impressive Mucus plugging suspected Pulmonology following Continue Mucomyst CHF No current exacerbation Echocardiogram shows ejection fraction of 35% No change to current therapy HTN Continue baseline treatment Follow blood pressures Adjust treatments as needed continue hydralazine and Coreg Clonidine PRN Paroxysmal atrial fibrillation with RVR Now rate controlled Continue amiodarone and Coreg, Eliquis Cardiology following COPD Continue duo nebs as needed and supplemental oxygen as needed h/o colostomy bag Continue maintenance Depression Continue present treatments palliative care following DVT prophylaxis Eliquis Discharge planning Hospice is consulted per patient's request Palliative care following Patient is not medically stable today, for discharge consideration Procedures - Arterial Line Size (Gauge): 18
--- NOTE | 2018-04-02 13:08 | P.PN ---
Subjective Interval history: He is doing better. On O2 5 L. Coughs up little. Good output. Physical Exam Vital signs: Vital Signs 04/01/18 15:00 04/01/18 16:43 04/01/18 20:00 Temperature 97.4 F L 97.3 F L Pulse Rate 64 70 73 Respiratory Rate 17 16 18 Blood Pressure 157/72 H 138/61 Pulse Oximetry 93 L 93 L 93 L 04/01/18 20:31 04/01/18 23:00 04/02/18 00:47 Temperature 97.6 F Pulse Rate 76 81 79 Respiratory Rate 20 19 Blood Pressure 146/66 H Pulse Oximetry 92 L 04/02/18 04:00 04/02/18 04:18 04/02/18 08:00 Temperature 98.4 F Pulse Rate 67 66 77 Respiratory Rate 18 22 Blood Pressure 124/68 Pulse Oximetry 95 94 L 04/02/18 08:40 04/02/18 08:41 Temperature Pulse Rate 68 Respiratory Rate 16 Blood Pressure Pulse Oximetry 95 Intake & Output 04/01/18 04/02/18 04/02/18 18:59 06:59 18:59 Intake Total 480 / 480 Output Total 1000 / 1000 Balance -520 / -520 Weight 109 kg Intake: Oral 480 / 480 Output: Urine 1000 / 1000 Other: Date of Last Bowel Movement 03/31/18 Narrative: GENERAL: NAD, A&Ox3, nasal cannula oxygen at 5 L HEAD: Normocephalic. NECK: Supple, trachea midline. No lymphadenopathy. EYES: No scleral icterus. No injection or drainage. CARDIOVASCULAR: Irregular rate and rhythm without murmurs, gallops, or rubs. RESPIRATORY: Breath sounds equal bilaterally.Basal crackles +. No accessory muscle use. GASTROINTESTINAL: Abdomen soft, non-tender, nondistended. MUSCULOSKELETAL: No cyanosis,but has 1 + edema . SKIN: Warm and dry. NEURO: No focal neurological deficits. - Urinary Catheter Management Indwelling Urethral Catheter Cath placed during this visit: yes Urethral indwelling: Yes Reason for continuing: Acute urinary retention Insertion date: 03/21/18 Insertion time: 12:00 Straight Cath placed during this visit: no Urethral indwelling: Yes Reason for continuing: Chronic Urinary Retention Results - Labs CBC & Chem 7: 04/01/18 06:55 04/01/18 06:55 - Imaging Impressions Chest X-Ray 04/02/18 00:00 CONCLUSION: Stable bilateral basilar airspace consolidation. Assessment and Plan - Assessment (1) Cor pulmonale, chronic Code(s): I27.81 - Cor pulmonale (chronic) Status: Acute (2) Acute renal insufficiency Code(s): N28.9 - Disorder of kidney and ureter, unspecified Status: Acute (3) Hypernatremia Code(s): E87.0 - Hyperosmolality and hypernatremia Status: Resolved (4) Metabolic acidosis Code(s): E87.2 - Acidosis Status: Resolved (5) Respiratory failure Code(s): J96.90 - Respiratory failure, unspecified, unspecified whether with hypoxia or hypercapnia Status: Resolved (6) COPD (chronic obstructive pulmonary disease) Code(s): J44.9 - Chronic obstructive pulmonary disease, unspecified Status: Chronic (7) Hypotension Code(s): I95.9 - Hypotension, unspecified Status: Acute (8) Dyspnea Code(s): R06.00 - Dyspnea, unspecified Status: Acute - Plan 1. Will continue on a N/C 5l and use BiPAP at HS12/5 CM , FIO2 30 % 2. Continue Diuretic daily. 3. Duonebs q6h. 4. Continue Symbicort 160/4.5 mcg , 2 puffs BID 5. D/C Mucomyst 10 % , 2 CC Q6H 6. CBC,BMP in am 7. Cont Solumedrol 40 MG IV BID Procedures - Arterial Line Size (Gauge): 18
[2018-04-02] MEDS: Chlorhexidine 0.12% Oral Kit 15 ML UDC OROPHARYNG SCH ×2 (16:14→19:19)
[2018-04-02] MEDS: Furosemide 40 MG Tablet PO SCH ×2 (16:20→18:36)
[2018-04-03 05:29] LABS: Hemoglobin 11.3 gm/dL (13.0-17.0); Mean Corpuscular HGB Conc 31.3 % (32.0-36.0); Mean Corpuscular Hemoglobin 19.9 pg (27.0-34.0); Mean Corpuscular Volume 63.6 fL (80.0-100.0); Mean Platelet Volume 8.6 fL (7.0-11.0); Platelet Count 242 th/mm3 (150-450); Red Blood Count 5.67 mil/mm3 (4.50-5.90); Red Cell Distribution Width 18.9 % (11.6-17.2); White Blood Count 20.8 th/mm3 (4.0-11.0)
[2018-04-03 05:52] LABS: Anion Gap 8 meq/L (5-15); Aspartate Aminotransferase 8 U/L (15-37); Blood Urea Nitrogen 67 mg/dL (7-18); Calcium 8.7 mg/dL (8.5-10.1); Carbon Dioxide 31.6 meq/L (21.0-32.0); Chloride 100 meq/L (98-107); Glomerular Filtration Rate 33 mL/min (>89); Glucose,Random 241 mg/dL (74-106); Potassium 4.1 meq/L (3.5-5.1); Sodium 140 meq/L (136-145)
[2018-04-03 05:54] LABS: Alanine Aminotransferase 19 U/L (12-78)
[2018-04-03 05:56] LABS: Alkaline Phosphatase 80 U/L (45-117); Total Protein 6.1 g/dL (6.4-8.2)
[2018-04-03 06:58] LABS: Lymphocytes 35 % (9-44); Ovalocytes 1+; Platelet Estimate Normal (Normal); Platelet Morphology Normal (Normal)
[2018-04-03] MEDS: Azithromycin 250 MG Tablet PO SCH (08:15)
[2018-04-03] MEDS: Amiodarone 200 MG Tablet PO SCH ×2 (08:15→21:52)
[2018-04-03] MEDS: Carvedilol 12.5 MG Tablet PO SCH ×2 (08:15→21:50)
[2018-04-03] MEDS: guaiFENesin 600 MG ER Tablet PO SCH ×2 (08:15→21:51)
[2018-04-03] MEDS: Senna/Docusate Sodium 8.6/50 MG Tablet PO SCH ×2 (08:16→21:52)
[2018-04-03] MEDS: MethylPREDNISolone Sod Succinate Inj 40 MG/ML Vial IV.PUSH SCH ×2 (08:16→21:50)
[2018-04-03] MEDS: Potassium Chloride 10 MEQ ER Capsule PO SCH ×2 (08:16→21:50)
[2018-04-03] MEDS: Chlorhexidine 0.12% Oral Kit 15 ML UDC OROPHARYNG SCH ×2 (08:17→21:52)
[2018-04-03] MEDS: Lidocaine 5% Patch T-DERMAL SCH (08:17)
[2018-04-03] MEDS: Furosemide 40 MG Tablet PO SCH ×2 (08:18→18:02)
[2018-04-03] MEDS ORDERED: Dextrose 50% in Water 50 ML Vial IV.PUSH PRN ×2 (09:16→09:58)
--- NOTE | 2018-04-03 11:26 | P.PNPAL ---
Reason for Visit Reason for visit: a. To assist with evaluation and management of symptoms including: pain, dyspnea. b. To assist medical decision maker(s) with: better understanding of current medical conditions; weighing benefits/burdens of medical treatment options; making medical treatment decisions. Subjective Subjective/Interval History: INTERVAL NOTE: The patient's dyspnea remains tolerable on the 6 L of O2 via nasal cannula, but apparently rehab will not take him with oxygen requirements that high.. The patient is understandably frustrated with not getting better faster. His ex -/HCS continues to encourage him. The patient remains weak and tired. He is afebrile. GFR is now up to 33, but his white count remains 20. Family/Friend Interactions: Discussed with ex-/HCS Liz at the bedside. She is also frustrated about his respiratory status not improving faster, but understands that he remains at high risk for decompensation. She is determined to get him to rehab so that he can "get stronger and get back home." Advance Directives Health Care Surrogate: Copy in medical record Health Care Surrogate Name and Number: Liz Lima [phone] Objective Vital Signs: Vital Signs 04/02/18 12:00 04/02/18 16:00 04/02/18 16:56 Temperature 98.3 F Pulse Rate 88 70 88 Respiratory Rate 22 16 Blood Pressure 160/72 H Pulse Oximetry 94 L 04/02/18 17:00 04/02/18 20:00 04/03/18 00:00 Temperature 97.6 F 97.5 F L 97.5 F L Pulse Rate 70 64 65 Respiratory Rate 20 17 Blood Pressure 175/79 H 166/94 H 138/68 Pulse Oximetry 92 L 96 93 L 04/03/18 04:00 04/03/18 08:00 04/03/18 09:00 Temperature 97.8 F 98.2 F Pulse Rate 59 L 67 72 Respiratory Rate 17 18 12 Blood Pressure 143/67 H 143/85 H Pulse Oximetry 95 97 04/03/18 09:04 Temperature Pulse Rate Respiratory Rate Blood Pressure Pulse Oximetry 96 Intake & Output 04/02/18 04/03/18 04/03/18 18:59 06:59 18:59 Intake Total 420 / 420 460 / 460 Output Total 2300 / 2300 1100 / 1100 Balance -1880 / -1880 -640 / -640 Weight 109.8 kg Intake: Oral 420 / 420 460 / 460 Output: Urine 2300 / 2300 1100 / 1100 Other: Date of Last Bowel Movement 03/31/18 03/31/18 # Bowel Movements 0 Physical Exam: CONSTITUTIONAL/GENERAL: This is an overweight, alert patient in no obvious distress; he appears weak/tired. TUBES/LINES/DRAINS: Nasal cannula oxygen, IV access CARDIOVASCULAR: Regular rate and rhythm without murmurs, gallops, or rubs. RESPIRATORY/CHEST: Equal breath sounds. A couple scattered rhonchi GASTROINTESTINAL: Abdomen soft, protuberant. Bowel sounds present. Colostomy. MUSCULOSKELETAL: Extremities without clubbing, cyanosis, or edema. No mottling or clubbing. NEUROLOGICAL: Alert, oriented, cognitively sharp, follows commands. PSYCHIATRIC: No obvious anxiety or psychosis Diagnostic Tests Laboratory: Laboratory Results - last 72 hr 04/01/18 04/01/18 04/03/18 06:55 06:55 05:02 WBC 24.1 H 20.8 H RBC 5.85 5.67 Hgb 11.8 L 11.3 L Hct 37.4 L 36.0 L MCV 63.9 L 63.6 L MCH 20.2 L 19.9 L MCHC 31.6 L 31.3 L RDW 19.0 H 18.9 H Plt Count 224 242 MPV 8.5 8.6 Prelim Diff (Auto) Manual diff required WBC Differential Manual diff final Seg Neuts % (Manual) 65 Lymphocytes % (Manual) 35 Abs Neuts (Manual) 13.5 H Differential Comment . Platelet Estimate Normal Platelet Morphology Normal Ovalocytes 1+ H Sodium 141 Potassium 4.1 Chloride 99 Carbon Dioxide 31.5 Anion Gap 11 BUN 64 H Creatinine 2.11 H Estimated GFR 30 L Random Glucose 246 H D Calcium 8.7 D Total Bilirubin AST ALT Alkaline Phosphatase Total Protein Albumin 04/03/18 05:02 WBC RBC Hgb Hct MCV MCH MCHC RDW Plt Count MPV Prelim Diff (Auto) WBC Differential Seg Neuts % (Manual) Lymphocytes % (Manual) Abs Neuts (Manual) Differential Comment Platelet Estimate Platelet Morphology Ovalocytes Sodium 140 Potassium 4.1 Chloride 100 Carbon Dioxide 31.6 Anion Gap 8 BUN 67 H Creatinine 1.93 H Estimated GFR 33 L Random Glucose 241 H Calcium 8.7 Total Bilirubin 0.4 AST 8 L ALT 19 Alkaline Phosphatase 80 Total Protein 6.1 L Albumin 2.0 L Result Diagrams: 04/03/18 05:02 04/03/18 05:02 Imaging: Head CT 03/12/18 22:57 CONCLUSION: No acute intracranial findings. Abdomen/Bladder Ultrasound 03/25/18 00:00 CONCLUSION: 1. There are cysts in the kidneys and minimal prominence of the right renal pelvis. Questionable stone distal ureter versus artifact from adjacent bowel could be further characterized with noncontrast CT examination based on clinical grounds. Abdomen/Pelvis CT 03/26/18 00:00 CONCLUSION: 1. Large distended bladder with Barker as above. 2. Bilateral renal cyst larger more numerous on the right. Chest CT 03/30/18 00:00 CONCLUSION: 1. Small scattered pulmonary infiltrates are noted in both lungs, left greater than right. 2. There is some compressive atelectasis in both lung bases along with small bilateral pleural effusions. Chest X-Ray 04/02/18 00:00 CONCLUSION: Stable bilateral basilar airspace consolidation. Procedures: * 03/11/18: Intubated, right femoral central line, left IJ central line placed. * 03/29/18: Extubated Assessment and Plan - Disease Oriented Problem List (1) Respiratory failure (2) COPD (chronic obstructive pulmonary disease) (3) Acute renal insufficiency (4) Metabolic acidosis Pertinent Non-Medical Issues: Psychosocial: . Has 2 daughters (Marisol and Lorie) and 4 sons ( Inderjit, Aidan, Edgard Blair and Yo). Family reports Yo has severe autism, not capacitated. Ex- Liz is HCS. Spiritual: Unknown. Legal: Patient has capacity for decision-making, and he has designated his ex- Liz has HCS now. Ethical issues impacting care: No known concerns at this time. Important Contacts: * Liz Lima (healthcare surrogate) -- ex-/mother to patient's daughter Tegan ([phone]) * Marisol Dick, daughter: [phone] * Lorie Timmons, daughter: [phone] * Yury Lima JR, son: * Lorie Luisana-- this is daughter Zamzam Timmons listed in EMR * Candelaria Land-- relationship unknown, daughter Yvette Tyson does not know anyone by this name; [phone] (left VM). * Izabela Beasley, sister: #[phone] * Radha Nguyen, sister: #[phone] Prognosis: His overall prognosis is rather poor. Although he was able to be extubated, he is at high risk of acute decompensation, and continues to have underlying COPD and stage IIIb CKD. He is appropriate for hospice services when his goals become comfort oriented. Code Status: No Code DNR Plan: * DO NOT RESUSCITATE, per request of patient 03/29/18 * DECISION-MAKING: Patient has capacity for decision-making; he has designated his ex- Liz as [facility] [phone]. * GOALS: The patient's goals fluctuate day-to-day; he has consistently wanted to be DNR, but he is feeling pressure from family to go to rehab and at the same time saying that he really does not want to do that. "I feel bad; I just want to go to sleep and not wake up." * SYMPTOMS: Pain: sources may include cancer, tubes, lines, bedbound status; he denies pain at this time. Dyspnea: On nasal O2 and breathing comfortably now. I have no further medication recommendations at this time. * Palliative care will continue to follow throughout hospital course to assist with symptom management and clarification of goals as needed. Time Spent Total Floor Time (mins): 38 Face to Face Time (mins): 22 >50% Time in Counseling or Coordination of Care: Yes Attestation Attestation: To help prompt me to consider important information that might be impacting today's encounter and assessment, information from prior notes written by myself or my colleagues may have been "brought forward" into today's note. My signature on this note, however, is an attestation that I personally performed the exam, history, and/or decision-making noted today, and, unless otherwise indicated, the interactions with patient, family, and staff as well as the review of records all occurred today. I also attest that the listed assessment and stated plan reflect my best clinical judgment today based on the combination of historical information, prior notes, and today's exam/ interactions. When time spent is documented, it refers only to time spent today by the signer, or if indicated, combined time spent today by collaborating physician/nurse practitioner.
[2018-04-03] MEDS: Insulin Detemir Inj 1,000 UNIT/10 ML Vial SQ SCH (11:56)
--- NOTE | 2018-04-03 13:03 | P.PNIM ---
Subjective Interval history: Oxygen remains at 6 L/min. Patient's showing some signs of improvement through time. Blood sugars are not controlled today. Physical Exam Vital signs: Vital Signs 04/02/18 16:00 04/02/18 16:56 04/02/18 17:00 Temperature 97.6 F Pulse Rate 70 88 70 Respiratory Rate 16 20 Blood Pressure 175/79 H Pulse Oximetry 92 L 04/02/18 20:00 04/03/18 00:00 04/03/18 04:00 Temperature 97.5 F L 97.5 F L 97.8 F Pulse Rate 64 65 59 L Respiratory Rate 17 17 Blood Pressure 166/94 H 138/68 143/67 H Pulse Oximetry 96 93 L 95 04/03/18 08:00 04/03/18 09:00 04/03/18 09:04 Temperature 98.2 F Pulse Rate 67 72 Respiratory Rate 18 12 Blood Pressure 143/85 H Pulse Oximetry 97 96 04/03/18 12:00 Temperature 97.3 F L Pulse Rate 65 Respiratory Rate 18 Blood Pressure 129/60 Pulse Oximetry 94 L Intake & Output 04/02/18 04/03/18 04/03/18 18:59 06:59 18:59 Intake Total 420 / 420 460 / 460 Output Total 2300 / 2300 1100 / 1100 Balance -1880 / -1880 -640 / -640 Weight 109.8 kg Intake: Oral 420 / 420 460 / 460 Output: Urine 2300 / 2300 1100 / 1100 Other: Date of Last Bowel Movement 03/31/18 03/31/18 # Bowel Movements 0 Narrative: GENERAL: NAD, A&Ox3, oxygen in place HEAD: Normocephalic. NECK: Supple, trachea midline. No lymphadenopathy. EYES: No scleral icterus. No injection or drainage. CARDIOVASCULAR: Regular rate and rhythm without murmurs, gallops, or rubs. RESPIRATORY: Breath sounds equal bilaterally. No accessory muscle use. GASTROINTESTINAL: Abdomen soft, non-tender, nondistended. MUSCULOSKELETAL: No cyanosis, or edema. SKIN: Warm and dry. NEURO: No focal neurological deficits. - Urinary Catheter Management Indwelling Urethral Catheter Cath placed during this visit: yes Urethral indwelling: Yes Reason for continuing: Not indwelling catheter Insertion date: 03/21/18 Insertion time: 12:00 Straight Cath placed during this visit: no Urethral indwelling: Yes Reason for continuing: Acute urinary retention Results - Labs CBC & Chem 7: 04/03/18 05:02 04/03/18 05:02 Laboratory Results - last 24 hr 04/03/18 04/03/18 04/03/18 05:02 05:02 12:00 WBC 20.8 H RBC 5.67 Hgb 11.3 L Hct 36.0 L MCV 63.6 L MCH 19.9 L MCHC 31.3 L RDW 18.9 H Plt Count 242 MPV 8.6 Prelim Diff (Auto) Manual diff required WBC Differential Manual diff final Seg Neuts % (Manual) 65 Lymphocytes % (Manual) 35 Abs Neuts (Manual) 13.5 H Differential Comment . Platelet Estimate Normal Platelet Morphology Normal Ovalocytes 1+ H Sodium 140 Potassium 4.1 Chloride 100 Carbon Dioxide 31.6 Anion Gap 8 BUN 67 H Creatinine 1.93 H Estimated GFR 33 L POC Glucose 373 H Random Glucose 241 H Calcium 8.7 Total Bilirubin 0.4 AST 8 L ALT 19 Alkaline Phosphatase 80 Total Protein 6.1 L Albumin 2.0 L Assessment and Plan - Assessment (1) Acute renal insufficiency Code(s): N28.9 - Disorder of kidney and ureter, unspecified Status: Acute (2) Respiratory failure Code(s): J96.90 - Respiratory failure, unspecified, unspecified whether with hypoxia or hypercapnia Status: Resolved (3) COPD (chronic obstructive pulmonary disease) Code(s): J44.9 - Chronic obstructive pulmonary disease, unspecified Status: Chronic - Plan 82M admitted with A. fib, multiorgan failure, hypotension and respiratory failure Insulin adjusted for coverage of hyperglycemia. Continue monitoring respiratory status and wean oxygen as tolerated. ANISH superimposed on CKD Slowly improving Nephrology following Avoid nephrotoxins Continue Barker and Flomax Continue monitoring renal function Acute hypoxic respiratory failure, COPD Intubated 03/11-03/16, now extubated Continue supplemental O2 Continue scheduled Atrovent nebs Complete opacification of left lung Resolved Pulmonology following Continue Mucomyst CHF No current exacerbation Echocardiogram shows ejection fraction of 35% No change to current therapy HTN Continue baseline treatment Follow blood pressures Adjust treatments as needed continue hydralazine and Coreg Clonidine PRN Paroxysmal atrial fibrillation with RVR Now rate controlled Continue amiodarone and Coreg, Eliquis Cardiology following COPD Continue duo nebs as needed and supplemental oxygen as needed h/o colostomy bag Continue maintenance Depression Continue present treatments palliative care following DVT prophylaxis Eliquis Discharge planning Hospice is consulted per patient's request Palliative care following Patient is not medically stable today, for discharge consideration Procedures - Arterial Line Size (Gauge): 18
[2018-04-03] MEDS: Insulin NovoLOG Aspart Correctional Sugar Inj SQ SCH ×3 (13:16→22:02)
--- NOTE | 2018-04-03 18:14 | P.PN ---
Subjective Interval history: Doing better. Good output. On O2 6 L . Able to cough up secretions Physical Exam Vital signs: Vital Signs 04/02/18 20:00 04/03/18 00:00 04/03/18 04:00 Temperature 97.5 F L 97.5 F L 97.8 F Pulse Rate 64 65 59 L Respiratory Rate 17 17 Blood Pressure 166/94 H 138/68 143/67 H Pulse Oximetry 96 93 L 95 04/03/18 08:00 04/03/18 09:00 04/03/18 09:04 Temperature 98.2 F Pulse Rate 67 72 Respiratory Rate 18 12 Blood Pressure 143/85 H Pulse Oximetry 97 96 04/03/18 12:00 04/03/18 14:57 04/03/18 16:00 Temperature 97.3 F L 97.4 F L Pulse Rate 59 L 69 65 Respiratory Rate 18 12 18 Blood Pressure 129/60 138/79 Pulse Oximetry 94 L 94 L Intake & Output 04/02/18 04/03/18 04/03/18 18:59 06:59 18:59 Intake Total 420 / 420 460 / 460 Output Total 2300 / 2300 1100 / 1100 Balance -1880 / -1880 -640 / -640 Weight 109.8 kg Intake: Oral 420 / 420 460 / 460 Output: Urine 2300 / 2300 1100 / 1100 Other: Date of Last Bowel Movement 03/31/18 03/31/18 04/03/18 # Bowel Movements 0 Narrative: GENERAL: NAD, A&Ox3, alert. HEAD: Normocephalic. NECK: Supple, trachea midline. No lymphadenopathy. EYES: No scleral icterus. No injection or drainage. CARDIOVASCULAR: Irregular rate and rhythm without murmurs, gallops, or rubs. RESPIRATORY: Breath sounds equal bilaterally. Bi basal crackles.No accessory muscle use. GASTROINTESTINAL: Abdomen soft, non-tender, nondistended. MUSCULOSKELETAL: No cyanosis, but has edema. SKIN: Warm and dry. NEURO: No focal neurological deficits. - Urinary Catheter Management Indwelling Urethral Catheter Cath placed during this visit: yes Urethral indwelling: Yes Reason for continuing: Not indwelling catheter Insertion date: 03/21/18 Insertion time: 12:00 Straight Cath placed during this visit: no Urethral indwelling: Yes Reason for continuing: Acute urinary retention Results - Labs CBC & Chem 7: 04/03/18 05:02 04/03/18 05:02 Laboratory Results - last 24 hr 04/03/18 04/03/18 04/03/18 05:02 05:02 12:00 WBC 20.8 H RBC 5.67 Hgb 11.3 L Hct 36.0 L MCV 63.6 L MCH 19.9 L MCHC 31.3 L RDW 18.9 H Plt Count 242 MPV 8.6 Prelim Diff (Auto) Manual diff required WBC Differential Manual diff final Seg Neuts % (Manual) 65 Lymphocytes % (Manual) 35 Abs Neuts (Manual) 13.5 H Differential Comment . Platelet Estimate Normal Platelet Morphology Normal Ovalocytes 1+ H Sodium 140 Potassium 4.1 Chloride 100 Carbon Dioxide 31.6 Anion Gap 8 BUN 67 H Creatinine 1.93 H Estimated GFR 33 L POC Glucose 373 H Random Glucose 241 H Calcium 8.7 Total Bilirubin 0.4 AST 8 L ALT 19 Alkaline Phosphatase 80 Total Protein 6.1 L Albumin 2.0 L 04/03/18 16:41 WBC RBC Hgb Hct MCV MCH MCHC RDW Plt Count MPV Prelim Diff (Auto) WBC Differential Seg Neuts % (Manual) Lymphocytes % (Manual) Abs Neuts (Manual) Differential Comment Platelet Estimate Platelet Morphology Ovalocytes Sodium Potassium Chloride Carbon Dioxide Anion Gap BUN Creatinine Estimated GFR POC Glucose 259 H Random Glucose Calcium Total Bilirubin AST ALT Alkaline Phosphatase Total Protein Albumin Assessment and Plan - Assessment (1) Cor pulmonale, chronic Code(s): I27.81 - Cor pulmonale (chronic) Status: Acute (2) Acute renal insufficiency Code(s): N28.9 - Disorder of kidney and ureter, unspecified Status: Acute (3) Hypernatremia Code(s): E87.0 - Hyperosmolality and hypernatremia Status: Resolved (4) Metabolic acidosis Code(s): E87.2 - Acidosis Status: Resolved (5) Respiratory failure Code(s): J96.90 - Respiratory failure, unspecified, unspecified whether with hypoxia or hypercapnia Status: Resolved (6) COPD (chronic obstructive pulmonary disease) Code(s): J44.9 - Chronic obstructive pulmonary disease, unspecified Status: Chronic (7) Hypotension Code(s): I95.9 - Hypotension, unspecified Status: Acute (8) Dyspnea Code(s): R06.00 - Dyspnea, unspecified Status: Acute - Plan 1. Will continue on a N/C 5l and use BiPAP at HS12/5 CM , FIO2 30 % but he has refused. 2. Continue Diuretic daily. 3. Duonebs q6h. 4. Continue Symbicort 160/4.5 mcg , 2 puffs BID 5. D/C Mucomyst. 6. CBC,BMP in am 7. Solumedrol 40 MG IV BID Procedures - Arterial Line Size (Gauge): 18
[2018-04-04] MEDS: Azithromycin 250 MG Tablet PO SCH (09:25)
[2018-04-04] MEDS: Furosemide 40 MG Tablet PO SCH ×2 (09:25→18:25)
[2018-04-04] MEDS: Senna/Docusate Sodium 8.6/50 MG Tablet PO SCH ×2 (09:26→21:03)
[2018-04-04] MEDS: guaiFENesin 600 MG ER Tablet PO SCH ×2 (09:26→21:03)
[2018-04-04] MEDS: Amiodarone 200 MG Tablet PO SCH ×2 (09:26→21:03)
[2018-04-04] MEDS: Carvedilol 12.5 MG Tablet PO SCH ×2 (09:26→21:03)
[2018-04-04] MEDS: Potassium Chloride 10 MEQ ER Capsule PO SCH ×2 (09:26→21:03)
[2018-04-04] MEDS: MethylPREDNISolone Sod Succinate Inj 40 MG/ML Vial IV.PUSH SCH (09:27)
[2018-04-04] MEDS: Insulin NovoLOG Aspart Correctional Sugar Inj SQ SCH ×4 (09:28→23:43)
[2018-04-04] MEDS: Chlorhexidine 0.12% Oral Kit 15 ML UDC OROPHARYNG SCH ×2 (09:28→21:04)
[2018-04-04] MEDS: Insulin Detemir Inj 1,000 UNIT/10 ML Vial SQ SCH (09:29)
--- NOTE | 2018-04-04 12:12 | P.PNPAL ---
Reason for Visit Reason for visit: a. To assist with evaluation and management of symptoms including: pain, dyspnea. b. To assist medical decision maker(s) with: better understanding of current medical conditions; weighing benefits/burdens of medical treatment options; making medical treatment decisions. Subjective Subjective/Interval History: INTERVAL NOTE: The patient is up in the chair this morning, and he feels like he is definitely improving. His ex- also feels like he looks better. He remains afebrile. His nasal O2 is now down to 5 L. He denies pain or dyspnea while at rest. Family/Friend Interactions: Discussion with patient's ex-/HCS Liz and also his daughter. They understand he is making slow improvements, and they are optimistic that he will be able to get to rehab soon. Advance Directives Health Care Surrogate: Copy in medical record Health Care Surrogate Name and Number: Liz Lima [phone] Objective Vital Signs: Vital Signs 04/03/18 14:57 04/03/18 16:00 04/03/18 19:45 Temperature 97.4 F L Pulse Rate 69 65 68 Respiratory Rate 12 18 Blood Pressure 138/79 Pulse Oximetry 94 L 04/03/18 20:00 04/03/18 20:32 04/03/18 23:45 Temperature 97.4 F L Pulse Rate 67 69 66 Respiratory Rate 20 16 Blood Pressure 127/60 Pulse Oximetry 94 L 97 04/04/18 00:00 04/04/18 03:45 04/04/18 07:00 Temperature 97.4 F L 97.2 F L Pulse Rate 63 55 L 62 Respiratory Rate 20 18 Blood Pressure 132/60 144/66 H Pulse Oximetry 94 L 96 04/04/18 10:33 Temperature Pulse Rate 78 Respiratory Rate 12 Blood Pressure Pulse Oximetry 96 Intake & Output 04/03/18 04/04/18 04/04/18 18:59 06:59 18:59 Intake Total 720 / 720 240 / 240 Output Total 850 / 850 1000 / 1000 Balance -130 / -130 -760 / -760 Intake: Oral 720 / 720 240 / 240 Output: Urine 850 / 850 Urine Amount (Catheter) 1000 / 1000 Indwelling Urethral Catheter 1000 / 1000 Other: Date of Last Bowel Movement 04/03/18 04/03/18 # Bowel Movements 0 0 Physical Exam: CONSTITUTIONAL/GENERAL: This is an overweight, alert patient in no obvious distress; he appears weak/tired. TUBES/LINES/DRAINS: Nasal cannula oxygen, IV access CARDIOVASCULAR: Regular rate and rhythm without murmurs, gallops, or rubs. RESPIRATORY/CHEST: Equal breath sounds. A couple scattered rhonchi GASTROINTESTINAL: Abdomen soft, protuberant. Bowel sounds present. Colostomy. MUSCULOSKELETAL: Extremities without clubbing, cyanosis, or edema. No mottling or clubbing. NEUROLOGICAL: Alert, oriented, cognitively sharp, follows commands. PSYCHIATRIC: No obvious anxiety or psychosis Diagnostic Tests Laboratory: Laboratory Results - last 72 hr 04/03/18 04/03/18 04/03/18 05:02 05:02 12:00 WBC 20.8 H RBC 5.67 Hgb 11.3 L Hct 36.0 L MCV 63.6 L MCH 19.9 L MCHC 31.3 L RDW 18.9 H Plt Count 242 MPV 8.6 Prelim Diff (Auto) Manual diff required WBC Differential Manual diff final Seg Neuts % (Manual) 65 Lymphocytes % (Manual) 35 Abs Neuts (Manual) 13.5 H Differential Comment . Platelet Estimate Normal Platelet Morphology Normal Ovalocytes 1+ H Sodium 140 Potassium 4.1 Chloride 100 Carbon Dioxide 31.6 Anion Gap 8 BUN 67 H Creatinine 1.93 H Estimated GFR 33 L POC Glucose 373 H Random Glucose 241 H Calcium 8.7 Total Bilirubin 0.4 AST 8 L ALT 19 Alkaline Phosphatase 80 Total Protein 6.1 L Albumin 2.0 L 04/03/18 04/03/18 04/04/18 16:41 21:56 08:24 WBC RBC Hgb Hct MCV MCH MCHC RDW Plt Count MPV Prelim Diff (Auto) WBC Differential Seg Neuts % (Manual) Lymphocytes % (Manual) Abs Neuts (Manual) Differential Comment Platelet Estimate Platelet Morphology Ovalocytes Sodium Potassium Chloride Carbon Dioxide Anion Gap BUN Creatinine Estimated GFR POC Glucose 259 H 245 H 187 H Random Glucose Calcium Total Bilirubin AST ALT Alkaline Phosphatase Total Protein Albumin Result Diagrams: 04/03/18 05:02 04/03/18 05:02 Procedures: * 03/11/18: Intubated, right femoral central line, left IJ central line placed. * 03/29/18: Extubated Assessment and Plan - Disease Oriented Problem List (1) Respiratory failure (2) COPD (chronic obstructive pulmonary disease) (3) Acute renal insufficiency (4) Metabolic acidosis Pertinent Non-Medical Issues: Psychosocial: . Has 2 daughters (Marisol and Lorie) and 4 sons ( Inderjit, Aidan, Edgard Blair and Yo). Family reports Yo has severe autism, not capacitated. Ex- Liz is HCS. Spiritual: Unknown. Legal: Patient has capacity for decision-making, and he has designated his ex- Liz has HCS now. Ethical issues impacting care: No known concerns at this time. Important Contacts: * Liz Lima (healthcare surrogate) -- ex-/mother to patient's daughter Tegan ([phone]) * Marisol Dick, daughter: [phone] * Lorie Timmons, daughter: [phone] * Yury Lima JR, son: * Lorie Lieberman-- this is daughter Zamzam Timmons listed in EMR * Candelaria Land-- relationship unknown, daughter Yvette Tyson does not know anyone by this name; [phone] (left VM). * Izabela Beasley, sister: #[phone] * Radha Nguyen, sister: #[phone] Prognosis: His overall prognosis is rather poor. Although he was able to be extubated, he is at high risk of acute decompensation, and continues to have underlying COPD and stage IIIb CKD. He is appropriate for hospice services when his goals become comfort oriented. Code Status: No Code DNR Plan: * DO NOT RESUSCITATE, per request of patient 03/29/18 * DECISION-MAKING: Patient has capacity for decision-making; he has designated his ex- Liz as [facility] [phone]. * GOALS: The patient's goals fluctuate day-to-day; he has consistently wanted to be DNR, and now he is looking forward to going to rehab and hopefully eventually getting home. Patient and family are aware that he is a high risk for additional complications or problems. * SYMPTOMS: Pain: sources may include cancer, tubes, lines, bedbound status; he denies pain at this time. Dyspnea: On nasal O2 and breathing comfortably now. I have no further medication recommendations at this time. * Palliative care will continue to follow throughout hospital course to assist with symptom management and clarification of goals as needed. Time Spent Total Floor Time (mins): 39 Face to Face Time (mins): 19 >50% Time in Counseling or Coordination of Care: Yes Attestation Attestation: To help prompt me to consider important information that might be impacting today's encounter and assessment, information from prior notes written by myself or my colleagues may have been "brought forward" into today's note. My signature on this note, however, is an attestation that I personally performed the exam, history, and/or decision-making noted today, and, unless otherwise indicated, the interactions with patient, family, and staff as well as the review of records all occurred today. I also attest that the listed assessment and stated plan reflect my best clinical judgment today based on the combination of historical information, prior notes, and today's exam/ interactions. When time spent is documented, it refers only to time spent today by the signer, or if indicated, combined time spent today by collaborating physician/nurse practitioner.
--- NOTE | 2018-04-04 12:15 | P.PNIM ---
Subjective Interval history: Patient starting to show some signs of improvement in respiratory status today. She has been weaned from 6 L/min to 4 L/min today. Thus far he is tolerating oxygen wean. Physical Exam Vital signs: Vital Signs 04/03/18 14:57 04/03/18 16:00 04/03/18 19:45 Temperature 97.4 F L Pulse Rate 69 65 68 Respiratory Rate 12 18 Blood Pressure 138/79 Pulse Oximetry 94 L 04/03/18 20:00 04/03/18 20:32 04/03/18 23:45 Temperature 97.4 F L Pulse Rate 67 69 66 Respiratory Rate 20 16 Blood Pressure 127/60 Pulse Oximetry 94 L 97 04/04/18 00:00 04/04/18 03:45 04/04/18 07:00 Temperature 97.4 F L 97.2 F L Pulse Rate 63 55 L 62 Respiratory Rate 20 18 Blood Pressure 132/60 144/66 H Pulse Oximetry 94 L 96 04/04/18 10:33 Temperature Pulse Rate 78 Respiratory Rate 12 Blood Pressure Pulse Oximetry 96 Intake & Output 04/03/18 04/04/18 04/04/18 18:59 06:59 18:59 Intake Total 720 / 720 240 / 240 Output Total 850 / 850 1000 / 1000 Balance -130 / -130 -760 / -760 Intake: Oral 720 / 720 240 / 240 Output: Urine 850 / 850 Urine Amount (Catheter) 1000 / 1000 Indwelling Urethral Catheter 1000 / 1000 Other: Date of Last Bowel Movement 04/03/18 04/03/18 # Bowel Movements 0 0 Narrative: GENERAL: NAD, A&Ox3 HEAD: Normocephalic. NECK: Supple, trachea midline. No lymphadenopathy. EYES: No scleral icterus. No injection or drainage. CARDIOVASCULAR: Regular rate and rhythm without murmurs, gallops, or rubs. RESPIRATORY: Breath sounds equal bilaterally. No accessory muscle use. GASTROINTESTINAL: Abdomen soft, non-tender, nondistended. MUSCULOSKELETAL: No cyanosis, or edema. SKIN: Warm and dry. NEURO: No focal neurological deficits. - Urinary Catheter Management Indwelling Urethral Catheter Cath placed during this visit: yes Urethral indwelling: Yes Reason for continuing: Not indwelling catheter Insertion date: 03/21/18 Insertion time: 12:00 Straight Cath placed during this visit: no Urethral indwelling: Yes Reason for continuing: Acute urinary retention Results - Labs CBC & Chem 7: 04/03/18 05:02 04/03/18 05:02 Laboratory Results - last 24 hr 04/03/18 04/03/18 04/04/18 16:41 21:56 08:24 POC Glucose 259 H 245 H 187 H Assessment and Plan - Assessment (1) Acute renal insufficiency Code(s): N28.9 - Disorder of kidney and ureter, unspecified Status: Acute (2) Respiratory failure Code(s): J96.90 - Respiratory failure, unspecified, unspecified whether with hypoxia or hypercapnia Status: Resolved (3) COPD (chronic obstructive pulmonary disease) Code(s): J44.9 - Chronic obstructive pulmonary disease, unspecified Status: Chronic - Plan 82M admitted with Mylene emeterio, multiorgan failure, hypotension and respiratory failure Improved blood sugars. Continue weaning oxygen as tolerated. Patient continues to tolerate oxygen wean he will be stable for discharge to custodial facility tomorrow. ANISH superimposed on CKD Slowly improving Nephrology following Avoid nephrotoxins Continue Barker and Flomax Continue monitoring renal function Acute hypoxic respiratory failure, COPD Improving slowly Continue supplemental O2 Wean oxygen as tolerated Continue scheduled Atrovent nebs Complete opacification of left lung Resolved Pulmonology following Continue Mucomyst CHF No current exacerbation Echocardiogram shows ejection fraction of 35% No change to current therapy HTN Continue baseline treatment Follow blood pressures Adjust treatments as needed continue hydralazine and Coreg Clonidine PRN Paroxysmal atrial fibrillation with RVR Now rate controlled Continue amiodarone and Coreg, Eliquis Cardiology following COPD Continue duo nebs as needed and supplemental oxygen as needed h/o colostomy bag Continue maintenance Depression Continue present treatments palliative care following DVT prophylaxis Eliquis Discharge planning Possible discharge tomorrow if stability continues Procedures - Arterial Line Size (Gauge): 18
[2018-04-04] MEDS: Lidocaine 5% Patch T-DERMAL SCH (12:26)
--- NOTE | 2018-04-04 18:03 | P.PN ---
Subjective Interval history: He is better. On O2 4L now and seems to have no SOB at rest. No fever. Leg edema is less Physical Exam Vital signs: Vital Signs 04/03/18 19:45 04/03/18 20:00 04/03/18 20:32 Temperature 97.4 F L Pulse Rate 68 67 69 Respiratory Rate 20 16 Blood Pressure 127/60 Pulse Oximetry 94 L 97 04/03/18 23:45 04/04/18 00:00 04/04/18 03:45 Temperature 97.4 F L Pulse Rate 66 63 55 L Respiratory Rate 20 Blood Pressure 132/60 Pulse Oximetry 94 L 04/04/18 07:00 04/04/18 10:33 04/04/18 11:00 Temperature 97.2 F L 97.2 F L Pulse Rate 64 78 63 Respiratory Rate 18 12 18 Blood Pressure 144/66 H 140/63 Pulse Oximetry 96 96 95 04/04/18 15:54 Temperature Pulse Rate 62 Respiratory Rate 12 Blood Pressure Pulse Oximetry Intake & Output 04/03/18 04/04/18 04/04/18 18:59 06:59 18:59 Intake Total 720 / 720 240 / 240 Output Total 850 / 850 1000 / 1000 Balance -130 / -130 -760 / -760 Intake: Oral 720 / 720 240 / 240 Output: Urine 850 / 850 Urine Amount (Catheter) 1000 / 1000 Indwelling Urethral Catheter 1000 / 1000 Other: Date of Last Bowel Movement 04/03/18 04/03/18 # Bowel Movements 0 0 Narrative: GENERAL: NAD, A&Ox3 HEAD: Normocephalic. NECK: Supple, trachea midline. Mild JVD.No lymphadenopathy. EYES: No scleral icterus. No injection or drainage. CARDIOVASCULAR: Regular rate and rhythm without murmurs, gallops, or rubs. RESPIRATORY: Few basal crackles.. No accessory muscle use. GASTROINTESTINAL: Abdomen soft, non-tender, nondistended. MUSCULOSKELETAL: No cyanosis, or edema. SKIN: Warm and dry. NEURO: No focal neurological deficits. - Urinary Catheter Management Indwelling Urethral Catheter Cath placed during this visit: yes Urethral indwelling: Yes Reason for continuing: Not indwelling catheter Insertion date: 03/21/18 Insertion time: 12:00 Straight Cath placed during this visit: no Urethral indwelling: Yes Reason for continuing: Acute urinary retention Results - Labs CBC & Chem 7: 04/03/18 05:02 04/03/18 05:02 Laboratory Results - last 24 hr 04/03/18 04/04/18 04/04/18 21:56 08:24 12:24 POC Glucose 245 H 187 H 274 H Assessment and Plan - Assessment (1) Cor pulmonale, chronic Code(s): I27.81 - Cor pulmonale (chronic) Status: Acute (2) Acute renal insufficiency Code(s): N28.9 - Disorder of kidney and ureter, unspecified Status: Acute (3) Hypernatremia Code(s): E87.0 - Hyperosmolality and hypernatremia Status: Resolved (4) Metabolic acidosis Code(s): E87.2 - Acidosis Status: Resolved (5) Respiratory failure Code(s): J96.90 - Respiratory failure, unspecified, unspecified whether with hypoxia or hypercapnia Status: Resolved (6) COPD (chronic obstructive pulmonary disease) Code(s): J44.9 - Chronic obstructive pulmonary disease, unspecified Status: Chronic (7) Hypotension Code(s): I95.9 - Hypotension, unspecified Status: Acute (8) Dyspnea Code(s): R06.00 - Dyspnea, unspecified Status: Acute - Plan 1. Will continue on a N/C 4l and wean . 2. Continue Diuretic daily. 3. Cont Duonebs q6h. 4. Continue Symbicort 160/4.5 mcg , 2 puffs BID 5. Cont antibiotic. 6. CBC,BMP in am 7. Solumedrol 40 MG IV daily X2 8. Transfer to rehab soon. Procedures - Arterial Line Size (Gauge): 18
[2018-04-05 07:19] LABS: Eos # (Auto) 0.4 th/mm3 (0.0-0.4); Eos % (Auto) 2.3 % (0.0-4.0); Hematocrit 38.6 % (39.0-51.0); Hemoglobin 12.4 gm/dL (13.0-17.0); Lymph # (Auto) 7.6 th/mm3 (1.0-4.8); Lymph % (Auto) 41.3 % (9.0-44.0); Mean Corpuscular Hemoglobin 20.4 pg (27.0-34.0); Mean Corpuscular Volume 63.8 fL (80.0-100.0); Mean Platelet Volume 8.4 fL (7.0-11.0); Mono % (Auto) 5.2 % (0.0-8.0); Neut # (Auto) 9.4 th/mm3 (1.8-7.7); Neut % (Auto) 51.2 % (16.0-70.0); Platelet Count 224 th/mm3 (150-450); Red Blood Count 6.05 mil/mm3 (4.50-5.90); Red Cell Distribution Width 19.1 % (11.6-17.2); White Blood Count 18.5 th/mm3 (4.0-11.0)
[2018-04-05 07:53] LABS: Alanine Aminotransferase 53 U/L (12-78); Albumin 2.5 g/dL (3.4-5.0); Alkaline Phosphatase 90 U/L (45-117); Anion Gap 7 meq/L (5-15); Aspartate Aminotransferase 23 U/L (15-37); Blood Urea Nitrogen 75 mg/dL (7-18); Calcium 8.5 mg/dL (8.5-10.1); Carbon Dioxide 29.5 meq/L (21.0-32.0); Chloride 103 meq/L (98-107); Glomerular Filtration Rate 29 mL/min (>89); Glucose,Random 149 mg/dL (74-106); Potassium 4.5 meq/L (3.5-5.1); Sodium 139 meq/L (136-145); Total Protein 6.5 g/dL (6.4-8.2)
[2018-04-05 08:16] LABS: Eosinophils 2 % (0-4); Lymphocytes 41 % (9-44); Monocytes 4 % (0-8); Platelet Estimate Normal (Normal); Platelet Morphology Normal (Normal)
--- NOTE | 2018-04-05 08:43 | XR ---
EXAM DATE: 04/05/2018 8:33 AM EDT AGE/SEX: 82 years / Male INDICATIONS: Evaluate for pneumonia. CLINICAL DATA: This is the patient's subsequent encounter. Patient reports that signs and symptoms h ave been present for 1 week and indicates a pain score of 0/10. MEDICAL/SURGICAL HISTORY: . Carcinoma, colon. Chronic obstructive pulmonary disease. Non-resp onsive. COMPARISON: [facility] [place], CHEST 1V SINGLE AP, 04/02/2018. . FINDINGS: A single AP view of the chest demonstrates the lungs to be symmetrically aerated with improving aerat ion in both lung bases possibly representing some resolving effusions/infiltrates. Minimal airspace d isease in both lung bases, likely atelectatic on the right and possibly a diaphragmatic eventration o r focal infiltrate in the left base. Heart size is upper limits of normal. Osseous structures are int act CONCLUSION: Improving aeration in both lung bases. Electronically signed by: Rudy Nice MD 04/05/2018 8:41 AM EDT
[2018-04-05] MEDS: Amiodarone 200 MG Tablet PO SCH ×2 (10:46→21:03)
[2018-04-05] MEDS: Carvedilol 12.5 MG Tablet PO SCH ×2 (10:46→21:03)
[2018-04-05] MEDS: Azithromycin 250 MG Tablet PO SCH (10:47)
[2018-04-05] MEDS: Potassium Chloride 10 MEQ ER Capsule PO SCH ×2 (10:47→21:04)
[2018-04-05] MEDS: Senna/Docusate Sodium 8.6/50 MG Tablet PO SCH ×2 (10:47→21:03)
[2018-04-05] MEDS: guaiFENesin 600 MG ER Tablet PO SCH ×2 (10:47→21:03)
[2018-04-05] MEDS: MethylPREDNISolone Sod Succinate Inj 40 MG/ML Vial IV.PUSH SCH (10:53)
[2018-04-05] MEDS: Lidocaine 5% Patch T-DERMAL SCH (10:54)
[2018-04-05] MEDS: Furosemide 40 MG Tablet PO SCH ×2 (10:54→19:17)
[2018-04-05] MEDS: Insulin NovoLOG Aspart Correctional Sugar Inj SQ SCH ×4 (10:54→21:02)
[2018-04-05] MEDS: Chlorhexidine 0.12% Oral Kit 15 ML UDC OROPHARYNG SCH ×2 (10:54→21:02)
[2018-04-05] MEDS: Insulin Detemir Inj 1,000 UNIT/10 ML Vial SQ SCH (10:54)
--- NOTE | 2018-04-05 12:43 | P.PN ---
Subjective Interval history: Improved and on O2 3 L. Good output. Sats 96. Physical Exam Vital signs: Vital Signs 04/04/18 15:00 04/04/18 15:54 04/04/18 19:45 Temperature 97.2 F L Pulse Rate 63 62 68 Respiratory Rate 18 12 Blood Pressure 149/65 H Pulse Oximetry 95 04/04/18 20:00 04/04/18 22:15 04/04/18 23:00 Temperature 97.4 F L 97.2 F L Pulse Rate 75 79 71 Respiratory Rate 20 16 20 Blood Pressure 133/60 133/60 Pulse Oximetry 97 96 93 L 04/04/18 23:50 04/05/18 03:45 04/05/18 07:00 Temperature 97.4 F L Pulse Rate 67 59 L 82 Respiratory Rate 20 Blood Pressure 116/56 L Pulse Oximetry 94 L 04/05/18 09:30 Temperature Pulse Rate 62 Respiratory Rate 18 Blood Pressure Pulse Oximetry 94 L Intake & Output 04/04/18 04/05/18 04/05/18 18:59 06:59 18:59 Intake Total 840 / 840 342 / 342 Output Total 500 / 500 Balance 840 / 840 -158 / -158 Weight 109.9 kg Intake: Oral 840 / 840 342 / 342 Output: Urine 500 / 500 Other: # Voids 1,025 Date of Last Bowel Movement 04/04/18 04/04/18 Narrative: GENERAL: NAD, A&Ox3, Obese elderly W/M HEAD: Normocephalic. NECK: Supple, trachea midline. Mild JVD.No lymphadenopathy. EYES: No scleral icterus. No injection or drainage. CARDIOVASCULAR: Irregular rate and rhythm without murmurs, gallops, or rubs. RESPIRATORY: Few basal crackles and wheeze. No accessory muscle use. GASTROINTESTINAL: Abdomen soft, non-tender, nondistended. MUSCULOSKELETAL: No cyanosis,but has 1 +edema. SKIN: Warm and dry. NEURO: No focal neurological deficits. - Urinary Catheter Management Indwelling Urethral Catheter Cath placed during this visit: yes, but has since been removed by the nurse Urethral indwelling: Yes Reason for continuing: Acute urinary retention Insertion date: 03/21/18 Insertion time: 12:00 Removal date: 04/05/18 Removal time: 11:35 Straight Cath placed during this visit: no Urethral indwelling: Yes Reason for continuing: Acute urinary retention Results - Labs CBC & Chem 7: 04/05/18 06:40 04/05/18 06:40 Laboratory Results - last 24 hr 04/04/18 04/05/18 04/05/18 21:01 06:40 06:40 WBC 18.5 H RBC 6.05 H Hgb 12.4 L Hct 38.6 L MCV 63.8 L MCH 20.4 L MCHC 32.0 RDW 19.1 H Plt Count 224 MPV 8.4 Prelim Diff (Auto) Slide review pending Neut % (Auto) 51.2 Lymph % (Auto) 41.3 [place] % (Auto) 5.2 Eos % (Auto) 2.3 Baso % (Auto) 0.0 Neut # (Auto) 9.4 H Lymph # (Auto) 7.6 H [place] # (Auto) 1.0 H Eos # (Auto) 0.4 Baso # (Auto) 0.0 WBC Differential Manual diff final Seg Neuts % (Manual) 53 Lymphocytes % (Manual) 41 Monocytes % (Manual) 4 Eosinophils % (Manual) 2 Abs Neuts (Manual) 9.8 H Differential Comment . Platelet Estimate Normal Platelet Morphology Normal Sodium 139 Potassium 4.5 Chloride 103 Carbon Dioxide 29.5 Anion Gap 7 BUN 75 H Creatinine 2.16 H Estimated GFR 29 L POC Glucose 178 H Random Glucose 149 H Calcium 8.5 Total Bilirubin 0.6 AST 23 ALT 53 Alkaline Phosphatase 90 Total Protein 6.5 Albumin 2.5 L 04/05/18 09:12 WBC RBC Hgb Hct MCV MCH MCHC RDW Plt Count MPV Prelim Diff (Auto) Neut % (Auto) Lymph % (Auto) [place] % (Auto) Eos % (Auto) Baso % (Auto) Neut # (Auto) Lymph # (Auto) [place] # (Auto) Eos # (Auto) Baso # (Auto) WBC Differential Seg Neuts % (Manual) Lymphocytes % (Manual) Monocytes % (Manual) Eosinophils % (Manual) Abs Neuts (Manual) Differential Comment Platelet Estimate Platelet Morphology Sodium Potassium Chloride Carbon Dioxide Anion Gap BUN Creatinine Estimated GFR POC Glucose 132 H Random Glucose Calcium Total Bilirubin AST ALT Alkaline Phosphatase Total Protein Albumin - Imaging Impressions Chest X-Ray 04/05/18 00:00 CONCLUSION: Improving aeration in both lung bases. Assessment and Plan - Assessment (1) Cor pulmonale, chronic Code(s): I27.81 - Cor pulmonale (chronic) Status: Acute (2) Acute renal insufficiency Code(s): N28.9 - Disorder of kidney and ureter, unspecified Status: Acute (3) Hypernatremia Code(s): E87.0 - Hyperosmolality and hypernatremia Status: Resolved (4) Metabolic acidosis Code(s): E87.2 - Acidosis Status: Resolved (5) Respiratory failure Code(s): J96.90 - Respiratory failure, unspecified, unspecified whether with hypoxia or hypercapnia Status: Resolved (6) COPD (chronic obstructive pulmonary disease) Code(s): J44.9 - Chronic obstructive pulmonary disease, unspecified Status: Chronic (7) Hypotension Code(s): I95.9 - Hypotension, unspecified Status: Acute (8) Dyspnea Code(s): R06.00 - Dyspnea, unspecified Status: Acute - Plan 1. Will continue on a N/C 3 L and wean . 2. Continue Diuretic daily. 3. Cont Duonebs q6h. 4. Continue Symbicort 160/4.5 mcg , 2 puffs BID 5. D/C antibiotic in am. 6. Transfer to rehab 7. Well F/U as OP in 2 weeks Procedures - Arterial Line Size (Gauge): 18
--- NOTE | 2018-04-05 13:38 | P.DS ---
Date of admission: 03/11/18 21:10 Primary care physician: Yfn Myles MD Brief History from admission: 82-year-old male presents with chief complaint of not feeling well, times today. On EMS arrival they found him pale diaphoretic tachycardic and critically ill. The patient has a history of colon cancer. According to nursing staff his family had some concern that he may intentionally took too many blood pressure medication. He was emergently intubated by ED attending for an airway protection due to altered mental status as well as severe hemodynamic instability. The patient is unable to give any additional history. No family available in the emergency department. DS: Diagnosis - Discharge Diagnosis (1) Acute renal insufficiency Status: Acute (2) Respiratory failure Status: Resolved (3) COPD (chronic obstructive pulmonary disease) Status: Chronic DS: Medications - Discharge Medications Prescriptions: amiodarone 200 mg PO Q12HR #60 tab apixaban [Eliquis] 2.5 mg PO BID #60 tab azithromycin 250 mg PO DAILY #3 tab carvedilol [Coreg] 25 mg PO Q12H #60 tab furosemide 40 mg PO BID@0900,1800 #60 tab hydralazine 100 mg PO Q8H #90 tab insulin detemir U-100 [Levemir U-100 Insulin] 10 unit SUB-Q DAILY #100 ml ipratropium bromide 0.5 mg NEB Q2HR NEB PRN #100 ml PRN Reason: Shortness Of Breath/Wheezing oxycodone 5 mg PO Q6H PRN #12 tab PRN Reason: Pain 3 to 10 potassium chloride 10 meq PO BID #60 cap prednisone 0 pack PO PER PKG DIR #1 pack tamsulosin 0.4 mg PO DAILY #30 cap DS: Summary Hospital Course: Mr. Contreras is an 82-year-old male. He came in secondary to shock with respiratory failure. Is a past history of colon cancer and he was found to be diaphoretic with tachycardia. He may have taken too many blood pressure medications. Altered mental status was present. He was admitted and stabilized and improved through time. However his respiratory status did not improve and a repeat chest x-ray showed opacity of the right lung. Bronchoscopy is recommended and patient declined this option. Through time this condition did resolve and patient is now improving with his need for oxygen. He has been weaned from 6 L down to 3 L today and at this point is medically stable and clear for transition to [facility] facility to work on his weakness. - Time Spent with Patient Total time spent providing and/or coordinating discharge services: Greater than 30 minutes - Quality: VTE Deep Vein Thrombosis/Pulmonary Embolism Present on Admission: No Exam Vital signs: Vital Signs 04/04/18 15:00 04/04/18 15:54 04/04/18 19:45 Temperature 97.2 F L Pulse Rate 63 62 68 Respiratory Rate 18 12 Blood Pressure 149/65 H Pulse Oximetry 95 04/04/18 20:00 04/04/18 22:15 04/04/18 23:00 Temperature 97.4 F L 97.2 F L Pulse Rate 75 79 71 Respiratory Rate 20 16 20 Blood Pressure 133/60 133/60 Pulse Oximetry 97 96 93 L 04/04/18 23:50 04/05/18 03:45 04/05/18 07:00 Temperature 97.4 F L Pulse Rate 67 59 L 71 Respiratory Rate 20 Blood Pressure 116/56 L Pulse Oximetry 94 L 04/05/18 09:30 Temperature Pulse Rate 62 Respiratory Rate 18 Blood Pressure Pulse Oximetry 94 L Intake & Output 04/04/18 04/05/18 04/05/18 18:59 06:59 18:59 Intake Total 840 / 840 342 / 342 Output Total 500 / 500 Balance 840 / 840 -158 / -158 Weight 109.9 kg Intake: Oral 840 / 840 342 / 342 Output: Urine 500 / 500 Other: # Voids 1,025 Date of Last Bowel Movement 04/04/18 04/04/18 Results Procedures completed during hospitalization: none Labs on day of discharge: Labs from last 24 hours 04/05/18 04/05/18 04/05/18 09:12 06:40 06:40 WBC 18.5 H RBC 6.05 H Hgb 12.4 L Hct 38.6 L MCV 63.8 L MCH 20.4 L MCHC 32.0 RDW 19.1 H Plt Count 224 MPV 8.4 Prelim Diff (Auto) Slide review pending Neut % (Auto) 51.2 Lymph % (Auto) 41.3 [place] % (Auto) 5.2 Eos % (Auto) 2.3 Baso % (Auto) 0.0 Neut # (Auto) 9.4 H Lymph # (Auto) 7.6 H [place] # (Auto) 1.0 H Eos # (Auto) 0.4 Baso # (Auto) 0.0 WBC Differential Manual diff final Seg Neuts % (Manual) 53 Lymphocytes % (Manual) 41 Monocytes % (Manual) 4 Eosinophils % (Manual) 2 Abs Neuts (Manual) 9.8 H Differential Comment . Platelet Estimate Normal Platelet Morphology Normal Sodium 139 Potassium 4.5 Chloride 103 Carbon Dioxide 29.5 Anion Gap 7 BUN 75 H Creatinine 2.16 H Estimated GFR 29 L POC Glucose 132 H Random Glucose 149 H Calcium 8.5 Total Bilirubin 0.6 AST 23 ALT 53 Alkaline Phosphatase 90 Total Protein 6.5 Albumin 2.5 L 04/04/18 21:01 WBC RBC Hgb Hct MCV MCH MCHC RDW Plt Count MPV Prelim Diff (Auto) Neut % (Auto) Lymph % (Auto) [place] % (Auto) Eos % (Auto) Baso % (Auto) Neut # (Auto) Lymph # (Auto) [place] # (Auto) Eos # (Auto) Baso # (Auto) WBC Differential Seg Neuts % (Manual) Lymphocytes % (Manual) Monocytes % (Manual) Eosinophils % (Manual) Abs Neuts (Manual) Differential Comment Platelet Estimate Platelet Morphology Sodium Potassium Chloride Carbon Dioxide Anion Gap BUN Creatinine Estimated GFR POC Glucose 178 H Random Glucose Calcium Total Bilirubin AST ALT Alkaline Phosphatase Total Protein Albumin - Impressions ITS Impressions Head CT 03/12/18 22:57 CONCLUSION: No acute intracranial findings. Abdomen/Bladder Ultrasound 03/25/18 00:00 CONCLUSION: 1. There are cysts in the kidneys and minimal prominence of the right renal pelvis. Questionable stone distal ureter versus artifact from adjacent bowel could be further characterized with noncontrast CT examination based on clinical grounds. Abdomen/Pelvis CT 03/26/18 00:00 CONCLUSION: 1. Large distended bladder with Barker as above. 2. Bilateral renal cyst larger more numerous on the right. Chest CT 03/30/18 00:00 CONCLUSION: 1. Small scattered pulmonary infiltrates are noted in both lungs, left greater than right. 2. There is some compressive atelectasis in both lung bases along with small bilateral pleural effusions. Chest X-Ray 04/05/18 00:00 CONCLUSION: Improving aeration in both lung bases. Discharge Plan - Discharge Disposition Patient Disposition: Discharge to SNF - Discharge Condition Condition: Stable - Discharge Order Discharge Orders: Discharge Order (Routine); Ordered 04/05/18 Ordered By: Nael Armendariz - Discharge Details Anticipated Discharge Date: 04/05/18 - Physicians Team Primary Care Provider: Yfn Myles Attending Provider: Nael Armendariz Other Providers: [employer]urance ; Hesham Sims MD ; Александр Berry MD ; Joel Esparza MD ; Carlos Eduardo Mcneil DO ; [facility],Agency ; Emily Gallego MD ; [facility],Agency ; Goyo Fay MD
[2018-04-06 06:12] VITALS: RESP 18
[2018-04-06] MEDS: Insulin NovoLOG Aspart Correctional Sugar Inj SQ SCH (09:10)
[2018-04-06] MEDS: Insulin Detemir Inj 1,000 UNIT/10 ML Vial SQ SCH (09:11)
[2018-04-06] MEDS: Chlorhexidine 0.12% Oral Kit 15 ML UDC OROPHARYNG SCH (09:11)
[2018-04-06] MEDS: MethylPREDNISolone Sod Succinate Inj 40 MG/ML Vial IV.PUSH SCH (09:11)
[2018-04-06] MEDS: Carvedilol 12.5 MG Tablet PO SCH (09:14)
[2018-04-06] MEDS: Amiodarone 200 MG Tablet PO SCH (09:15)
[2018-04-06] MEDS: guaiFENesin 600 MG ER Tablet PO SCH (09:15)
[2018-04-06] MEDS: Azithromycin 250 MG Tablet PO SCH (09:16)
[2018-04-06] MEDS: Lidocaine 5% Patch T-DERMAL SCH (09:16)
[2018-04-06] MEDS: Potassium Chloride 10 MEQ ER Capsule PO SCH (09:16)
[2018-04-06] MEDS: Furosemide 40 MG Tablet PO SCH (09:16)
--- NOTE | 2018-04-06 11:15 | P.PNIM ---
Subjective Interval history: Discharge pending. Patient discharged on 04/05/2018. Awaiting placement. Physical Exam Vital signs: Vital Signs 04/05/18 12:00 04/05/18 15:00 04/05/18 15:30 Temperature 98.4 F Pulse Rate 63 68 66 Respiratory Rate 20 16 Blood Pressure 147/67 H Pulse Oximetry 94 L 04/05/18 16:00 04/05/18 20:00 04/06/18 00:00 Temperature 97.8 F 97.9 F Pulse Rate 66 76 70 Respiratory Rate 19 17 Blood Pressure 143/69 H 124/63 Pulse Oximetry 94 L 94 L 04/06/18 04:00 04/06/18 08:00 04/06/18 09:10 Temperature 97.5 F L 98.0 F Pulse Rate 64 64 96 H Respiratory Rate 18 18 18 Blood Pressure 138/65 146/64 H Pulse Oximetry 94 L 98 97 Intake & Output 04/05/18 04/06/18 04/06/18 18:59 06:59 18:59 Intake Total 720 / 720 261 / 261 Output Total 2200 / 2200 Balance 720 / 720 -1939 / -1939 Weight 111.9 kg Intake: Oral 720 / 720 261 / 261 Output: Urine 1100 / 1100 Urine Amount (Catheter) 1100 / 1100 Straight 1100 / 1100 Other: # Voids 2 Narrative: GENERAL: NAD, A&Ox3, nasal cannula oxygen in place. HEAD: Normocephalic. NECK: Supple, trachea midline. No lymphadenopathy. EYES: No scleral icterus. No injection or drainage. CARDIOVASCULAR: Regular rate and rhythm without murmurs, gallops, or rubs. RESPIRATORY: Breath sounds equal bilaterally. No accessory muscle use. GASTROINTESTINAL: Abdomen soft, non-tender, nondistended. MUSCULOSKELETAL: No cyanosis, mild lower extremity edema. SKIN: Warm and dry. NEURO: No focal neurological deficits. - Urinary Catheter Management Indwelling Urethral Catheter Cath placed during this visit: yes, but has since been removed by the nurse Urethral indwelling: Yes Reason for continuing: Not indwelling catheter Insertion date: 03/21/18 Insertion time: 12:00 Removal date: 04/05/18 Removal time: 11:35 Straight Cath placed during this visit: no Urethral indwelling: Yes Reason for continuing: Not indwelling catheter Results - Labs CBC & Chem 7: 04/05/18 06:40 04/05/18 06:40 Laboratory Results - last 24 hr 04/05/18 04/06/18 20:15 08:34 POC Glucose 327 H 255 H - Procedures none Assessment and Plan - Assessment (1) Acute renal insufficiency Code(s): N28.9 - Disorder of kidney and ureter, unspecified Status: Acute (2) Respiratory failure Code(s): J96.90 - Respiratory failure, unspecified, unspecified whether with hypoxia or hypercapnia Status: Resolved (3) COPD (chronic obstructive pulmonary disease) Code(s): J44.9 - Chronic obstructive pulmonary disease, unspecified Status: Chronic - Plan 82M admitted with A. fib, multiorgan failure, hypotension and respiratory failure Patient medically stable for discharge and discharged on 04/05/2018. Awaiting placement. ANISH superimposed on CKD Improved Continue Flomax Acute hypoxic respiratory failure, COPD Improving slowly Continue supplemental O2 Wean oxygen as tolerated Continue steroid wean Atrovent nebs Complete opacification of left lung Resolved CHF No current exacerbation Echocardiogram shows ejection fraction of 35% No change to current therapy HTN Continue baseline treatment continue hydralazine and Coreg Paroxysmal atrial fibrillation with RVR Now rate controlled Continue amiodarone and Coreg, Eliquis Follow up with cardiology as an outpatient COPD Continue baseline treatments Continue oxygen h/o colostomy bag Continue maintenance Depression Continue present treatments DVT prophylaxis Eliquis Discharge planning Patient discharged on 04/05/2018. Placement pending. Procedures - Arterial Line Size (Gauge): 18
--- NOTE | 2018-04-06 12:02 | P.PNPAL ---
Reason for Visit Reason for visit: a. To assist with evaluation and management of symptoms including: pain, dyspnea. b. To assist medical decision maker(s) with: better understanding of current medical conditions; weighing benefits/burdens of medical treatment options; making medical treatment decisions. Subjective Subjective/Interval History: INTERVAL NOTE: The patient is up in the chair again this morning, and he continues to feel that he is definitely improving. He remains afebrile. His nasal O2 is now down to 3 L. He denies pain or dyspnea while at rest. His chest x-ray yesterday revealed improving aeration both bases, and his white count was 18. Family/Friend Interactions: Patient, ex- Liz, and daughter are looking forward to him being transitioned to the rehab facility later today. They had no further questions. Advance Directives Health Care Surrogate: Copy in medical record Health Care Surrogate Name and Number: Liz Lima [phone] Objective Vital Signs: Vital Signs 04/05/18 12:00 04/05/18 15:00 04/05/18 15:30 Temperature 98.4 F Pulse Rate 63 68 66 Respiratory Rate 20 16 Blood Pressure 147/67 H Pulse Oximetry 94 L 04/05/18 16:00 04/05/18 20:00 04/06/18 00:00 Temperature 97.8 F 97.9 F Pulse Rate 66 76 70 Respiratory Rate 19 17 Blood Pressure 143/69 H 124/63 Pulse Oximetry 94 L 94 L 04/06/18 04:00 04/06/18 08:00 04/06/18 09:10 Temperature 97.5 F L 98.0 F Pulse Rate 64 60 96 H Respiratory Rate 18 18 18 Blood Pressure 138/65 146/64 H Pulse Oximetry 94 L 98 97 Intake & Output 04/05/18 04/06/18 04/06/18 18:59 06:59 18:59 Intake Total 720 / 720 261 / 261 Output Total 2200 / 2200 Balance 720 / 720 -193 / -193 Weight 111.9 kg Intake: Oral 720 / 720 261 / 261 Output: Urine 1100 / 1100 Urine Amount (Catheter) 1100 / 1100 Straight 1100 / 1100 Other: # Voids 2 Physical Exam: CONSTITUTIONAL/GENERAL: This is an overweight, alert patient in no obvious distress; he appears weak/tired. TUBES/LINES/DRAINS: Nasal cannula oxygen, IV access CARDIOVASCULAR: Regular rate and rhythm without murmurs, gallops, or rubs. RESPIRATORY/CHEST: Equal breath sounds. A couple scattered rhonchi GASTROINTESTINAL: Abdomen soft, protuberant. Bowel sounds present. Colostomy. MUSCULOSKELETAL: Extremities without clubbing, cyanosis, or edema. No mottling or clubbing. NEUROLOGICAL: Alert, oriented, cognitively sharp, follows commands. PSYCHIATRIC: No obvious anxiety or psychosis Diagnostic Tests Laboratory: Laboratory Results - last 72 hr 04/03/18 04/03/18 04/03/18 12:00 16:41 21:56 WBC RBC Hgb Hct MCV MCH MCHC RDW Plt Count MPV Prelim Diff (Auto) Neut % (Auto) Lymph % (Auto) [place] % (Auto) Eos % (Auto) Baso % (Auto) Neut # (Auto) Lymph # (Auto) [place] # (Auto) Eos # (Auto) Baso # (Auto) WBC Differential Seg Neuts % (Manual) Lymphocytes % (Manual) Monocytes % (Manual) Eosinophils % (Manual) Abs Neuts (Manual) Differential Comment Platelet Estimate Platelet Morphology Sodium Potassium Chloride Carbon Dioxide Anion Gap BUN Creatinine Estimated GFR POC Glucose 373 H 259 H 245 H Random Glucose Calcium Total Bilirubin AST ALT Alkaline Phosphatase Total Protein Albumin 04/04/18 04/04/18 04/04/18 08:24 12:24 21:01 WBC RBC Hgb Hct MCV MCH MCHC RDW Plt Count MPV Prelim Diff (Auto) Neut % (Auto) Lymph % (Auto) [place] % (Auto) Eos % (Auto) Baso % (Auto) Neut # (Auto) Lymph # (Auto) [place] # (Auto) Eos # (Auto) Baso # (Auto) WBC Differential Seg Neuts % (Manual) Lymphocytes % (Manual) Monocytes % (Manual) Eosinophils % (Manual) Abs Neuts (Manual) Differential Comment Platelet Estimate Platelet Morphology Sodium Potassium Chloride Carbon Dioxide Anion Gap BUN Creatinine Estimated GFR POC Glucose 187 H 274 H 178 H Random Glucose Calcium Total Bilirubin AST ALT Alkaline Phosphatase Total Protein Albumin 04/05/18 04/05/18 04/05/18 06:40 06:40 09:12 WBC 18.5 H RBC 6.05 H Hgb 12.4 L Hct 38.6 L MCV 63.8 L MCH 20.4 L MCHC 32.0 RDW 19.1 H Plt Count 224 MPV 8.4 Prelim Diff (Auto) Slide review pending Neut % (Auto) 51.2 Lymph % (Auto) 41.3 [place] % (Auto) 5.2 Eos % (Auto) 2.3 Baso % (Auto) 0.0 Neut # (Auto) 9.4 H Lymph # (Auto) 7.6 H [place] # (Auto) 1.0 H Eos # (Auto) 0.4 Baso # (Auto) 0.0 WBC Differential Manual diff final Seg Neuts % (Manual) 53 Lymphocytes % (Manual) 41 Monocytes % (Manual) 4 Eosinophils % (Manual) 2 Abs Neuts (Manual) 9.8 H Differential Comment . Platelet Estimate Normal Platelet Morphology Normal Sodium 139 Potassium 4.5 Chloride 103 Carbon Dioxide 29.5 Anion Gap 7 BUN 75 H Creatinine 2.16 H Estimated GFR 29 L POC Glucose 132 H Random Glucose 149 H Calcium 8.5 Total Bilirubin 0.6 AST 23 ALT 53 Alkaline Phosphatase 90 Total Protein 6.5 Albumin 2.5 L 04/05/18 04/06/18 20:15 08:34 WBC RBC Hgb Hct MCV MCH MCHC RDW Plt Count MPV Prelim Diff (Auto) Neut % (Auto) Lymph % (Auto) [place] % (Auto) Eos % (Auto) Baso % (Auto) Neut # (Auto) Lymph # (Auto) [place] # (Auto) Eos # (Auto) Baso # (Auto) WBC Differential Seg Neuts % (Manual) Lymphocytes % (Manual) Monocytes % (Manual) Eosinophils % (Manual) Abs Neuts (Manual) Differential Comment Platelet Estimate Platelet Morphology Sodium Potassium Chloride Carbon Dioxide Anion Gap BUN Creatinine Estimated GFR POC Glucose 327 H 255 H Random Glucose Calcium Total Bilirubin AST ALT Alkaline Phosphatase Total Protein Albumin Result Diagrams: 04/05/18 06:40 04/05/18 06:40 Procedures: * 03/11/18: Intubated, right femoral central line, left IJ central line placed. * 03/29/18: Extubated Assessment and Plan - Disease Oriented Problem List (1) Respiratory failure (2) COPD (chronic obstructive pulmonary disease) (3) Acute renal insufficiency (4) Metabolic acidosis Pertinent Non-Medical Issues: Psychosocial: . Has 2 daughters (Marisol and Lorie) and 4 sons ( Augustoer, Aidan, Edgard Jr and Yo). Family reports Yo has severe autism, not capacitated. Ex- Liz is HCS. Spiritual: Unknown. Legal: Patient has capacity for decision-making, and he has designated his ex- Liz has HCS now. Ethical issues impacting care: No known concerns at this time. Important Contacts: * Liz Lima (healthcare surrogate) -- ex-/mother to patient's daughter Tegan ([phone]) * Marisol Dick, daughter: [phone] * Lorie Timmons, daughter: [phone] * Yury Brinklakhwinder JR, son: * Lorie Lieberman-- this is daughter Zamzam Timmons listed in EMR * Candelaria Land-- relationship unknown, daughter Yvette Tyson does not know anyone by this name; [phone] (left VM). * Izabela Beasley, sister: #[phone] * Radha Nguyen, sister: #[phone] Prognosis: His overall prognosis is rather poor. Although he was able to be extubated, he is at high risk of acute decompensation, and continues to have underlying COPD and stage IIIb CKD. He is appropriate for hospice services when his goals become comfort oriented. Code Status: No Code DNR Plan: * DO NOT RESUSCITATE, per request of patient 03/29/18 * DECISION-MAKING: Patient has capacity for decision-making; he has designated his ex- Liz as [facility] [phone]. * GOALS: The patient is looking forward to going to rehab today and hopefully eventually getting home. Patient and family are aware that he is a high risk for additional complications or problems, and a transition to comfort would be appropriate when he fails again. * SYMPTOMS: Pain: Denies at this time. Dyspnea: On nasal O2 and breathing comfortably now. I have no further medication recommendations at this time. * Palliative care will continue to follow throughout hospital course to assist with symptom management and clarification of goals as needed. Time Spent Total Floor Time (mins): 27 Face to Face Time (mins): 10 >50% Time in Counseling or Coordination of Care: Yes Attestation Attestation: To help prompt me to consider important information that might be impacting today's encounter and assessment, information from prior notes written by myself or my colleagues may have been "brought forward" into today's note. My signature on this note, however, is an attestation that I personally performed the exam, history, and/or decision-making noted today, and, unless otherwise indicated, the interactions with patient, family, and staff as well as the review of records all occurred today. I also attest that the listed assessment and stated plan reflect my best clinical judgment today based on the combination of historical information, prior notes, and today's exam/ interactions. When time spent is documented, it refers only to time spent today by the signer, or if indicated, combined time spent today by collaborating physician/nurse practitioner.
[2018-04-06 12:28] VITALS: BP 140/60; TEMP 97.4; O2SAT 96
--- NOTE | 2018-04-06 12:46 | P.PN ---
Subjective Interval history: On O2 2 L. Will go to rehab today. No fever. Needs a Barker cath. Physical Exam Vital signs: Vital Signs 04/05/18 15:00 04/05/18 15:30 04/05/18 16:00 Temperature 98.4 F Pulse Rate 68 66 66 Respiratory Rate 20 16 Blood Pressure 147/67 H Pulse Oximetry 94 L 04/05/18 20:00 04/06/18 00:00 04/06/18 04:00 Temperature 97.8 F 97.9 F 97.5 F L Pulse Rate 76 70 64 Respiratory Rate 19 17 18 Blood Pressure 143/69 H 124/63 138/65 Pulse Oximetry 94 L 94 L 94 L 04/06/18 08:00 04/06/18 09:10 04/06/18 12:00 Temperature 98.0 F 97.4 F L Pulse Rate 60 96 H 65 Respiratory Rate 18 18 18 Blood Pressure 146/64 H 140/60 Pulse Oximetry 98 97 96 Intake & Output 04/05/18 04/06/18 04/06/18 18:59 06:59 18:59 Intake Total 720 / 720 261 / 261 Output Total 2200 / 2200 Balance 720 / 720 -1939 / -1939 Weight 111.9 kg Intake: Oral 720 / 720 261 / 261 Output: Urine 1100 / 1100 Urine Amount (Catheter) 1100 / 1100 Straight 1100 / 1100 Other: # Voids 2 Narrative: GENERAL: NAD, A&Ox3, nasal cannula oxygen in place. HEAD: Normocephalic. NECK: Supple, trachea midline. No lymphadenopathy. EYES: No scleral icterus. No injection or drainage. CARDIOVASCULAR: Regular rate and rhythm without murmurs, gallops, or rubs. RESPIRATORY: Occ Basal crackles. No accessory muscle use. GASTROINTESTINAL: Abdomen soft, non-tender, nondistended. MUSCULOSKELETAL: No cyanosis, mild lower extremity edema. SKIN: Warm and dry. NEURO: No focal neurological deficits. - Urinary Catheter Management Indwelling Urethral Catheter Cath placed during this visit: yes, but has since been removed by the nurse Urethral indwelling: Yes Reason for continuing: Not indwelling catheter Insertion date: 03/21/18 Insertion time: 12:00 Removal date: 04/05/18 Removal time: 11:35 Straight Cath placed during this visit: no Urethral indwelling: Yes Reason for continuing: Not indwelling catheter Results - Labs CBC & Chem 7: 04/05/18 06:40 04/05/18 06:40 Laboratory Results - last 24 hr 04/05/18 04/06/18 20:15 08:34 POC Glucose 327 H 255 H - Procedures none Assessment and Plan - Assessment (1) Cor pulmonale, chronic Code(s): I27.81 - Cor pulmonale (chronic) Status: Acute (2) Acute renal insufficiency Code(s): N28.9 - Disorder of kidney and ureter, unspecified Status: Acute (3) Hypernatremia Code(s): E87.0 - Hyperosmolality and hypernatremia Status: Resolved (4) Metabolic acidosis Code(s): E87.2 - Acidosis Status: Resolved (5) Respiratory failure Code(s): J96.90 - Respiratory failure, unspecified, unspecified whether with hypoxia or hypercapnia Status: Resolved (6) COPD (chronic obstructive pulmonary disease) Code(s): J44.9 - Chronic obstructive pulmonary disease, unspecified Status: Chronic (7) Hypotension Code(s): I95.9 - Hypotension, unspecified Status: Acute (8) Dyspnea Code(s): R06.00 - Dyspnea, unspecified Status: Acute - Plan 1. Will continue on a N/C 2 L . 2. Continue Diuretic daily. 3. Cont Duonebs q6h. 4. Continue Symbicort 160/4.5 mcg , 2 puffs BID 5. To rehab on O2 2 L 6. Will F/U as OP in 2 weeks Procedures - Arterial Line Size (Gauge): 18
[2018-04-06] MEDS: Senna/Docusate Sodium 8.6/50 MG Tablet PO SCH (12:56)
[2018-04-06 15:11] VITALS: PULSE 57
== END 2018-04-06 18:11 ==
LOC: NEPE 19:55 → NEDA 21:10 → HIMC 22:20 → HCPC 03-22 16:40 → HCIS 03-24 11:11 → N04 03-24 17:48
PROVIDERS: ADMIT Hospitalist; ATTEND Hospitalist

== ENCOUNTER 2018-04-25 18:36 | Inpatient (IN) ==
[2018-04-25] MEDS ORDERED: Sodium Chlor 0.9% Inj 500 ML IV.SIG SCH (19:00)
[2018-04-25] MEDS ORDERED: Piperacil/Tazo 4.5 GM Premix 4.5 GM/100 ML BAG IV.SIG ONE (19:26)
[2018-04-25] MEDS ORDERED: Vancomycin Inj 1 GM/200 ML PIGGYBACK IV.SIG ONE (19:26)
--- NOTE | 2018-04-25 19:37 | ED ---
HPI General Chief Complaint: Recheck/Abnormal Lab/Rx Stated Complaint: abnormal labs/[facility] Time Seen by Provider: 04/25/18 18:50 Source: patient and old records reviewed Mode of arrival: other ([facility]) Limitations: altered mental status History of Present Illness HPI narrative: 82-year-old male who presents to the ED for evaluation of abnormal labs. Patient apparently was evaluated at his halfway where he was found to have a UTI and abnormal labs. Apparently his BUN and creatinine have been increased with his BUN being in the 120s and his creatinine in the fours. He is vital sign count was found to be 19,000 as well as having a UTI with what appears to be yeast. Patient was sent here because of the acute kidney disease. Of note patient was seen here and released from the hospital less than a month ago for evaluation of respiratory distress with what appears to be acute kidney insufficiency. Patient has significant history of CHF with about ejection fracture. Patient apparently is on Lasix and at the time had to be admitted and intubated to the pediatric acute care unit nurse secondary to significant disease. Patient does not appear to be on dialysis at this time. Unclear at this time why. Patient himself is not a good historian cannot give me much history. The pain. No signs of trauma. Patient has an indwelling Barker catheter that has been there for quite some time. Patient apparently has also been found to be somewhat altered per staff and report given. Related Data Home Medications Medication Instructions Recorded Confirmed metoprolol tartrate 50 mg PO BID 03/12/18 04/25/18 Previous Rx's Medication Instructions Recorded Lactobacillus acidophilus 500 mmu cells PO TID #30 cap 04/05/18 amiodarone 200 mg PO Q12HR #60 tab 04/05/18 apixaban [Eliquis] 2.5 mg PO BID #60 tab 04/05/18 carvedilol [Coreg] 25 mg PO Q12H #60 tab 04/05/18 furosemide 40 mg PO BID@0900,1800 #60 tab 04/05/18 hydralazine 100 mg PO Q8H #90 tab 04/05/18 insulin detemir U-100 [Levemir 10 unit SUB-Q DAILY #100 ml 04/05/18 U-100 Insulin] ipratropium bromide 0.5 mg NEB Q2HR NEB PRN #100 ml 04/05/18 oxycodone 5 mg PO Q6H PRN #12 tab 04/05/18 potassium chloride 10 meq PO BID #60 cap 04/05/18 prednisone 0 pack PO PER PKG DIR #1 pack 04/05/18 tamsulosin 0.4 mg PO DAILY #30 cap 04/05/18 Allergies Allergy/AdvReac Type Severity Reaction Status Date / Time aspirin Allergy Mild HEART RATE Verified 03/25/18 20:32 INCREASES caffeine Allergy Mild HEART RATE Verified 03/25/18 20:32 INCREASES Review of Systems ROS Unobtainable ROS Unobtainable: unobtainable due to mental status ROS: all other systems reviewed are negative PMFSH History History Provided By: Patient and Medical Record Medical History Medical History Afib (Acute) Arthritis (Acute) COPD (chronic obstructive pulmonary disease) (Acute) Colon cancer (Acute) Diabetes mellitus (Acute) HLD (hyperlipidemia) (Acute) HTN (hypertension) (Acute) Polyneuropathy (Acute) Surgical History Surgical History Colostomy in place (Acute) H/O nasal sinusotomy (Acute) History of ethmoidectomy (Acute) History of umbilical hernia repair (Acute) History of unicondylar arthroplasty of right knee (Acute) Status post laser cataract surgery of both eyes (Acute) Family History Family History Father Motor vehicle accident Mother Old age Social History Social History Substance History: No History of Abuse and Unable to Obtain Second Hand Smoke Exposure: No Smoking Status: Former smoker (Quit smoking 8 years ago) Tobacco Type: Cigarettes Smoking End Date: 2009 How Often Do You Have a Drink Containing Alcohol: Never Recent Travel in [place] within the Last 8 Weeks: No Recent Out of Country Travel within the Last 8 Weeks: No Exam Narrative Exam Narrative: GENERAL: Well-appearing SKIN: Focused skin assessment warm/dry. HEAD: Atraumatic. Normocephalic. EYES: Pupils equal and round. No scleral icterus. No injection or drainage. ENT: No nasal bleeding or discharge. Mucous membranes pink and moist. Tongue is midline. No uvula deviation. NECK: Trachea midline. No JVD. CARDIOVASCULAR: Regular rate and rhythm. No murmur appreciated. RESPIRATORY: No accessory muscle use. Clear to auscultation. Breath sounds equal bilaterally. GASTROINTESTINAL: Abdomen soft, non-tender, nondistended. Hepatic and splenic margins not palpable. MUSCULOSKELETAL: No obvious deformities. No clubbing. No cyanosis. Patient does have 1+ pitting edema in the lower extremities bilaterally. 2+ pulses bilaterally. NEUROLOGICAL: Awake and alert. No obvious cranial nerve deficits. Motor grossly within normal limits. Normal speech. PSYCHIATRIC: Appropriate mood and affect; insight and judgment normal. Course Initial Documented Vital Signs Temperature 97.7 F 04/25/18 19:06 Pulse Rate 116 H 04/25/18 19:06 Respiratory Rate 26 H 04/25/18 19:06 Blood Pressure 88/53 L 04/25/18 19:06 Pulse Oximetry 96 04/25/18 19:06 Last Documented Vital Signs Temperature 98.8 F 04/26/18 06:00 Pulse Rate 58 L 04/26/18 06:00 Respiratory Rate 22 04/26/18 06:00 Blood Pressure 86/52 L 04/26/18 06:00 Pulse Oximetry 95 04/26/18 06:00 Critical Care Time Critical Care Time: Yes Total Critical Care Time: 38 Attestation: Aggregate critical care time was 38 minutes. Time to perform other separately billable procedures was not included in the critical care time. My time did not include minutes spent treating any other patients simultaneously or on activities that did not directly contribute to the patient's treatment. The services I provided to this patient were to treat and/or prevent clinically significant deterioration that could result in: Cardiovascular collapse from sepsis, versus respiratory failure from fluid overload from crystalloid resuscitation I provided critical care services requiring my management, as noted below: Chart data review, documentation time, medication orders and management, vital sign assessments/reviewing monitor data, ordering and reviewing lab tests, ordering and interpreting/reviewing x-rays and diagnostic studies, care of the patient and discussion of the patient with the admitting physicians. Medical Decision Making BESSY Attestation BESSY supervised visit: Yes Attestation: I, Dr. Jackson, have reviewed the advance practice practitioner's documentation and am in agreement, met with the patient face to face, made the diagnosis, and the medical decision making was done by me. The patient was initially evaluated by Amor Polanco. Please see their complete history and physical. *My assessment and Findings: The patient presents with history of altered mentation and abnormal labs noted by his halfway earlier today. The patient was noted to have acute kidney injury, and a leukocytosis on blood work done prior to arrival. The patient has a chronic indwelling Barker catheter and also had a urinalysis done that was abnormal. The patient's examination is remarkable for generalized weakness. The patient's initial blood pressure was in the 80s systolic. The patient on examination appeared to have upper extremity edema, trace lower extremity edema. The patient had dry mouth on examination with worsening kidney function on diuretics, initially the patient' s blood pressure was treated with IV fluid resuscitation. The patient's electronic medical record was reviewed the patient has a history of congestive heart failure with a diminished ejection fraction. During the course of the patient's emergency department visit, the patient's history, examination, and differential diagnosis were reviewed with the patient. The patient was placed on a registered nurse cardiac with oximetry and frequent blood pressure monitoring. The patient had IV access obtained and blood work sent for analysis. The patient was initially provided normal saline at 500 mL bolus 1. The patient's diagnostic studies are remarkable for a white count of 26.2, platelets that are 66, neutrophils 75.4, hemoglobin 10.1, PT 11.3, PTT 24.8, chemistry is remarkable for a lactic acid of 3 initially, troponin I is 0.06, glucose is 231, BNP is 445, BUN is 112, creatinine is 4.03, urinalysis shows many white blood cell clumps innumerable WBCs, 26 RBCs, 30 protein, moderate occult blood, few mucus, large leukocyte esterase, turbid urine, many bacteria, occasional sediment, few yeast. Chest x-ray shows bibasilar patchiness consistent with atelectasis and/or infiltrates. The patient was judiciously hydrated given his history of the. The patient continued to have episodes of hypotension, therefore the patient was started on Levophed The patient's case was discussed with the pediatric acute care unit nurse per The patient's results were discussed with the patient, including the plan of care. I explained that further testing and/ or monitoring is indicated based on the patient's history, examination, and/ or laboratory findings. Therefore, I recommended admission for additional evaluation. The patient expressed understanding and was agreeable with this plan. The patient was admitted to the hospital in critical condition and sent to a bed under the care of the pediatric acute care unit nurse's service. MDM Narrative Medical decision making narrative: 82-year-old male who presents to the ED for evaluation of abnormal labs. Patient was prepped and examined and was found to have signs and symptoms of unclear etiology but appears to be related to kidney disease with what appears to be possible UTI and sepsis. Labs and imaging were ordered. Review the patient's medical records. He was admitted secondary to respiratory failure and CHF and cardiomyopathy with acute kidney insuficiency. Patient give 500 ml of fluids due to history of CHF. Started on antibiotics for possible urosepsis. Labs and imaging ordered. My attending Dr Jackson evaluated the patient and recommends levophed as BP low. Labs and imaging here showed what appears to be severe sepsis, hyptoension, acute kidney failure. Case discussed with attending who recommends admission to intesivist. Case discussed with Dr Galindo who agrees to admission. Medical Screen Exam Complete: Yes Emergency Medical Condition: Yes Differential Diagnosis Differential Diagnosis: Urosepsis versus shock versus CHF versus kidney failure versus hypotension Medical Records Medical records reviewed: Yes I reviewed the patient's medical records. Lab Data Lab results reviewed: Yes I reviewed the patient's lab results. Lab results narrative: troponin slightly elevated at 0.06 lactic acid in the 3s UA shows signs of possible UTI Result diagrams: 04/25/18 19:00 04/25/18 19:00 Lab Results 04/25/18 04/25/18 04/25/18 Range/Units 19:00 19:00 19:00 WBC 26.2 H (4.0-11.0) th/mm3 RBC 5.22 (4.50-5.90) mil/mm3 Hgb 10.1 L (13.0-17.0) gm/dL Hct 32.5 L (39.0-51.0) % MCV 62.1 L (80.0-100.0) fL MCH 19.2 L (27.0-34.0) pg MCHC 31.0 L (32.0-36.0) % RDW 17.8 H (11.6-17.2) % Plt Count 66 L (150-450) th/mm3 MPV 9.1 (7.0-11.0) fL Prelim Diff (Auto) Slide review pending Neut % (Auto) 75.4 H (16.0-70.0) % Lymph % (Auto) 22.6 (9.0-44.0) % Tompkins % (Auto) 1.7 (0.0-8.0) % Eos % (Auto) 0.2 (0.0-4.0) % Baso % (Auto) 0.1 (0.0-2.0) % Neut # (Auto) 19.8 H (1.8-7.7) th/mm3 Lymph # (Auto) 5.9 H (1.0-4.8) th/mm3 Tompkins # (Auto) 0.5 (0.0-0.9) th/mm3 Eos # (Auto) 0.1 (0.0-0.4) th/mm3 Baso # (Auto) 0.0 (0.0-0.2) th/mm3 WBC Differential Manual diff final Seg Neuts % (Manual) 47 (16-70) % Band Neuts % (Manual) 25 H (0-6) % Lymphocytes % (Manual) 22 (9-44) % Monocytes % (Manual) 3 (0-8) % Metamyelocytes % (Man) 3 H (0-1) % Abs Neuts (Manual) 19.7 H (1.8-7.7) th/mm3 Differential Comment . Platelet Estimate Low L (Normal) Platelet Morphology Enlarged H (Normal) Basophilic Stippling Moderate H (None) Target Cells 1+ H (None) Ovalocytes 1+ H (None) PT 11.3 (9.8-11.6) sec INR 1.1 Ratio APTT 24.8 (24.3-30.1) sec Sodium 131 L (136-145) meq/L Potassium 5.4 H (3.5-5.1) meq/L Chloride 95 L (98-107) meq/L Carbon Dioxide 21.9 (21.0-32.0) meq/L Anion Gap 14 (5-15) meq/L BUN 112 H (7-18) mg/dL Creatinine 4.03 H (0.60-1.30) mg/dL Estimated GFR 14 L (>89) mL/min Random Glucose 313 H (74-106) mg/dL Lactic Acid (0.4-2.0) mmol/L Calcium 8.1 L (8.5-10.1) mg/dL Total Bilirubin 1.0 (0.2-1.0) mg/dL AST 16 (15-37) U/L ALT 21 (12-78) U/L Alkaline Phosphatase 102 (45-117) U/L Troponin I 0.06 H (0.02-0.05) ng/mL B-Natriuretic Peptide (0-100) pg/mL Total Protein 5.9 L (6.4-8.2) g/dL Albumin 2.1 L (3.4-5.0) g/dL Urine Color (Yellw/Straw) Urine Clarity (Clear) Urine pH (5.0-8.5) Ur Specific Tigrett (1.002-1.035) Urine Protein (Neg-Trace) mg/dL Urine Glucose (UA) (Negative) mg/dL Urine Ketones (Negative) mg/dL Urine Occult Blood (Negative) Urine Nitrate (Negative) Urine Bilirubin (Negative) Urine Urobilinogen (Less than 2) mg/dL Ur Leukocyte Esterase (Negative) Urine RBC (0-3) /hpf Urine WBC (0-5) /hpf Urine WBC Clumps (None) Amorphous Sediment (None) /hpf Urine Bacteria (None) /hpf Urine Mucus (Occasional) /lpf Micro UA Comment Ur Microscopic Review Urine Culture Comments Nasal Screen MRSA (PCR) (Negative) 04/25/18 04/25/18 04/25/18 Range/Units 19:00 19:05 19:25 WBC (4.0-11.0) th/mm3 RBC (4.50-5.90) mil/mm3 Hgb (13.0-17.0) gm/dL Hct (39.0-51.0) % MCV (80.0-100.0) fL MCH (27.0-34.0) pg MCHC (32.0-36.0) % RDW (11.6-17.2) % Plt Count (150-450) th/mm3 MPV (7.0-11.0) fL Prelim Diff (Auto) Neut % (Auto) (16.0-70.0) % Lymph % (Auto) (9.0-44.0) % Tompkins % (Auto) (0.0-8.0) % Eos % (Auto) (0.0-4.0) % Baso % (Auto) (0.0-2.0) % Neut # (Auto) (1.8-7.7) th/mm3 Lymph # (Auto) (1.0-4.8) th/mm3 Tompkins # (Auto) (0.0-0.9) th/mm3 Eos # (Auto) (0.0-0.4) th/mm3 Baso # (Auto) (0.0-0.2) th/mm3 WBC Differential Seg Neuts % (Manual) (16-70) % Band Neuts % (Manual) (0-6) % Lymphocytes % (Manual) (9-44) % Monocytes % (Manual) (0-8) % Metamyelocytes % (Man) (0-1) % Abs Neuts (Manual) (1.8-7.7) th/mm3 Differential Comment Platelet Estimate (Normal) Platelet Morphology (Normal) Basophilic Stippling (None) Target Cells (None) Ovalocytes (None) PT (9.8-11.6) sec INR Ratio APTT (24.3-30.1) sec Sodium (136-145) meq/L Potassium (3.5-5.1) meq/L Chloride (98-107) meq/L Carbon Dioxide (21.0-32.0) meq/L Anion Gap (5-15) meq/L BUN (7-18) mg/dL Creatinine (0.60-1.30) mg/dL Estimated GFR (>89) mL/min Random Glucose (74-106) mg/dL Lactic Acid 3.0 H (0.4-2.0) mmol/L Calcium (8.5-10.1) mg/dL Total Bilirubin (0.2-1.0) mg/dL AST (15-37) U/L ALT (12-78) U/L Alkaline Phosphatase (45-117) U/L Troponin I (0.02-0.05) ng/mL B-Natriuretic Peptide 445 H (0-100) pg/mL Total Protein (6.4-8.2) g/dL Albumin (3.4-5.0) g/dL Urine Color Mei (Yellw/Straw) Urine Clarity Turbid H (Clear) Urine pH 5.0 (5.0-8.5) Ur Specific Tigrett 1.010 (1.002-1.035) Urine Protein 30 H (Neg-Trace) mg/dL Urine Glucose (UA) Negative (Negative) mg/dL Urine Ketones Negative (Negative) mg/dL Urine Occult Blood Moderate H (Negative) Urine Nitrate Negative (Negative) Urine Bilirubin Negative (Negative) Urine Urobilinogen Less than 2 (Less than 2) mg/dL Ur Leukocyte Esterase Large H (Negative) Urine RBC 26 H (0-3) /hpf Urine WBC (0-5) /hpf Urine WBC Clumps Many H (None) Amorphous Sediment Occasional H (None) /hpf Urine Bacteria Many H (None) /hpf Urine Mucus Few H (Occasional) /lpf Micro UA Comment Cath-culture ind Ur Microscopic Review Not Reportable Urine Culture Comments Cath-cult indicated Nasal Screen MRSA (PCR) (Negative) 04/26/18 04/26/18 Range/Units 03:38 04:41 WBC (4.0-11.0) th/mm3 RBC (4.50-5.90) mil/mm3 Hgb (13.0-17.0) gm/dL Hct (39.0-51.0) % MCV (80.0-100.0) fL MCH (27.0-34.0) pg MCHC (32.0-36.0) % RDW (11.6-17.2) % Plt Count (150-450) th/mm3 MPV (7.0-11.0) fL Prelim Diff (Auto) Neut % (Auto) (16.0-70.0) % Lymph % (Auto) (9.0-44.0) % Tompkins % (Auto) (0.0-8.0) % Eos % (Auto) (0.0-4.0) % Baso % (Auto) (0.0-2.0) % Neut # (Auto) (1.8-7.7) th/mm3 Lymph # (Auto) (1.0-4.8) th/mm3 Tompkins # (Auto) (0.0-0.9) th/mm3 Eos # (Auto) (0.0-0.4) th/mm3 Baso # (Auto) (0.0-0.2) th/mm3 WBC Differential Seg Neuts % (Manual) (16-70) % Band Neuts % (Manual) (0-6) % Lymphocytes % (Manual) (9-44) % Monocytes % (Manual) (0-8) % Metamyelocytes % (Man) (0-1) % Abs Neuts (Manual) (1.8-7.7) th/mm3 Differential Comment Platelet Estimate (Normal) Platelet Morphology (Normal) Basophilic Stippling (None) Target Cells (None) Ovalocytes (None) PT (9.8-11.6) sec INR Ratio APTT (24.3-30.1) sec Sodium (136-145) meq/L Potassium (3.5-5.1) meq/L Chloride (98-107) meq/L Carbon Dioxide (21.0-32.0) meq/L Anion Gap (5-15) meq/L BUN (7-18) mg/dL Creatinine (0.60-1.30) mg/dL Estimated GFR (>89) mL/min Random Glucose (74-106) mg/dL Lactic Acid 1.3 (0.4-2.0) mmol/L Calcium (8.5-10.1) mg/dL Total Bilirubin (0.2-1.0) mg/dL AST (15-37) U/L ALT (12-78) U/L Alkaline Phosphatase (45-117) U/L Troponin I (0.02-0.05) ng/mL B-Natriuretic Peptide (0-100) pg/mL Total Protein (6.4-8.2) g/dL Albumin (3.4-5.0) g/dL Urine Color (Yellw/Straw) Urine Clarity (Clear) Urine pH (5.0-8.5) Ur Specific [place] (1.002-1.035) Urine Protein (Neg-Trace) mg/dL Urine Glucose (UA) (Negative) mg/dL Urine Ketones (Negative) mg/dL Urine Occult Blood (Negative) Urine Nitrate (Negative) Urine Bilirubin (Negative) Urine Urobilinogen (Less than 2) mg/dL Ur Leukocyte Esterase (Negative) Urine RBC (0-3) /hpf Urine WBC (0-5) /hpf Urine WBC Clumps (None) Amorphous Sediment (None) /hpf Urine Bacteria (None) /hpf Urine Mucus (Occasional) /lpf Micro UA Comment Ur Microscopic Review Urine Culture Comments Nasal Screen MRSA (PCR) Not detected (Negative) Imaging Data Attestation: I personally reviewed and interpreted this imaging study as follows : Radiologist's impression: Chest X-Ray 04/25/18 18:59 CONCLUSION: 1. Bibasilar patchiness consistent with atelectasis and/or infiltrates. 2. Cardiomegaly. ECG Data Attestation: I personally reviewed and interpreted this ECG as follows: Interpretation: EKG shows atrial fibrillation no sign of acute ischemia. No ST elevated. Discharge Plan Discharge Disposition Patient Disposition: 30 Still Patient Discharge Details Diagnosis: Sepsis, Acute UTI, Acute hypotension, Acute kidney failure, Acute hyperkalemia , Acute alteration in mental status, CHF (congestive heart failure) Physicians Team ED Provider: Chani Jackson ED Midlevel Provider: Collin Marrufo Primary Care Provider: Yfn Myles Attending Provider: Lul Galindo Other Providers: [facility],Insurance Status ED Status: Left Department Discharge Information Discharge Date/Time: 04/25/18 21:45
[2018-04-25] MEDS ORDERED: Vancomycin Inj 1,000 MG in Sodium Chlor 0.9% Inj 250 ML IV.SIG ONE (19:45)
[2018-04-25 19:48] LABS: Amorphous Sediment,Urine Occasional /hpf; Bacteria,Urine Many /hpf; Bilirubin,Urine Negative (Negative); Clarity,Urine Turbid (Clear); Color,Urine Amber (Yellw/Straw); Glucose,Urine (UA) Negative (Negative); Leukocyte Esterase,Urine Large (Negative); Mucus,Urine Few /lpf (Occasional); Nitrite,Urine Negative (Negative)
--- NOTE | 2018-04-25 19:49 | XR ---
EXAM DATE: 04/25/2018 7:16 PM EDT AGE/SEX: 82 years / Male INDICATIONS: Cough and short of breath. CLINICAL DATA: This is the patient's initial encounter. Patient reports that signs and symptoms have been present for 2 days and indicates a pain score of 2/10. MEDICAL/SURGICAL HISTORY: . Hypertension. Diabetes. Colon cancer. . Ethmoidectomy. Colostomy. COMPARISON: . FINDINGS: The heart is enlarged. Bibasilar patchiness is noted consistent with atelectasis and/or infiltrates. CONCLUSION: 1. Bibasilar patchiness consistent with atelectasis and/or infiltrates. 2. Cardiomegaly. Electronically signed by: Pedro Sr MD 04/25/2018 7:47 PM EDT
[2018-04-25 19:54] LABS: Baso % (Auto) 0.1 % (0.0-2.0); Eos # (Auto) 0.1 th/mm3 (0.0-0.4); Eos % (Auto) 0.2 % (0.0-4.0); Hematocrit 32.5 % (39.0-51.0); Hemoglobin 10.1 gm/dL (13.0-17.0); Lymph # (Auto) 5.9 th/mm3 (1.0-4.8); Lymph % (Auto) 22.6 % (9.0-44.0); Mean Corpuscular Hemoglobin 19.2 pg (27.0-34.0); Mean Corpuscular Volume 62.1 fL (80.0-100.0); Mean Platelet Volume 9.1 fL (7.0-11.0); Mono # (Auto) 0.5 th/mm3 (0.0-0.9); Mono % (Auto) 1.7 % (0.0-8.0); Neut # (Auto) 19.8 th/mm3 (1.8-7.7); Neut % (Auto) 75.4 % (16.0-70.0); Platelet Count 66 th/mm3 (150-450); Red Blood Count 5.22 mil/mm3 (4.50-5.90); Red Cell Distribution Width 17.8 % (11.6-17.2); White Blood Count 26.2 th/mm3 (4.0-11.0)
[2018-04-25 20:04] LABS: Activated Partial Thrombo Time 24.8 sec (24.3-30.1); INR 1.1 Ratio; Prothrombin Time 11.3 sec (9.8-11.6)
[2018-04-25 20:05] LABS: Albumin 2.1 g/dL (3.4-5.0); Anion Gap 14 meq/L (5-15); Aspartate Aminotransferase 16 U/L (15-37); Blood Urea Nitrogen 112 mg/dL (7-18); Calcium 8.1 mg/dL (8.5-10.1); Carbon Dioxide 21.9 meq/L (21.0-32.0); Chloride 95 meq/L (98-107); Glomerular Filtration Rate 14 mL/min (>89); Glucose,Random 313 mg/dL (74-106); Potassium 5.4 meq/L (3.5-5.1); Sodium 131 meq/L (136-145)
[2018-04-25 20:06] LABS: Alanine Aminotransferase 21 U/L (12-78)
[2018-04-25 20:10] LABS: Alkaline Phosphatase 102 U/L (45-117); Total Protein 5.9 g/dL (6.4-8.2); Troponin I 0.06 ng/mL (0.02-0.05)
[2018-04-25] MEDS ORDERED: Sodium Chlor 0.9% Inj 500 ML IV.SIG ONE ×2 (20:16→21:00)
[2018-04-25] MEDS ORDERED: Acetaminophen 325 MG Tablet PO PRN (20:36)
[2018-04-25] MEDS ORDERED: Vancomycin Consult Pharmacy OTHER PRN (20:36)
[2018-04-25] MEDS ORDERED: Bisacodyl 10 MG Supp RECTAL PRN (20:36)
[2018-04-25] MEDS ORDERED: Sod Chloride 0.9% Inj 1,000 ML IV.SIG SCH (20:42)
[2018-04-25] MEDS ORDERED: Heparin - SQ 10,000 UNITS/ML Vial SQ SCH (20:45)
[2018-04-25] MEDS ORDERED: Piperacil/Tazo 4.5 GM Premix 4.5 GM/100 ML BAG IV.SIG SCH (20:45)
--- NOTE | 2018-04-25 20:45 | P.HPCC ---
History of Present Illness Primary Care Physician: Yfn Myles MD History of Present Illness: 82-year-old male presents initially for an evaluation of abnormal labs at his group home facility. He was found to have a UTI and abnormal labs. Apparently his BUN and creatinine have been increased with his BUN being in the 120s and his creatinine in the 4s. His white count is critically elevated to 25 with severe bandemia, patient is also borderline hypotensive and therefore he is admitted to ICU with diagnosis of severe sepsis. Patient has significant history of CHF severely reduced ejection fracture. Patient himself is not a good historian cannot provide much history. No signs of trauma. Inpatient Certification: I certify that the inpatient services were ordered in accordance with Medicare regulations governing the order. This includes certification that hospital inpatient services are reasonable and necessary and in the case of services not specified as inpatient-only under 42 CFR 419.22(n), that they are appropriately provided as inpatient services in accordance to with the 2-midnight benchmark under 43 CFR 412.3(e) Estimated Total Length of Stay (Days): 5 Plans for Post Hospital Care: Not yet determined Review of Systems unobtainable due to mental status PMFSH - History History Provided By: Patient, Medical Record - Medical History Medical History: Medical History (Last Reviewed 04/25/18 @ 19:33 by DANTE Jovel) Afib Arthritis COPD (chronic obstructive pulmonary disease) Colon cancer Diabetes mellitus HLD (hyperlipidemia) HTN (hypertension) Polyneuropathy - Surgical History Surgical History: Surgical History (Last Reviewed 04/25/18 @ 19:33 by DANTE Jovel) Colostomy in place H/O nasal sinusotomy History of ethmoidectomy History of umbilical hernia repair History of unicondylar arthroplasty of right knee Status post laser cataract surgery of both eyes - Family History Family History: Family History (Last Reviewed 04/25/18 @ 19:33 by DANTE Jovel) Father Motor vehicle accident Mother Old age - Tobacco History Smoking Status: Former smoker (Quit smoking 8 years ago) Smoking End Date: 2009 - Alcohol History How Often Do You Have a Drink Containing Alcohol: Never - Substance Use History Substance History: No History of Abuse, Unable to Obtain - Travel History Recent Travel in the [place] Within the Last 8 Weeks: No Recent Travel Out of the Country Within the Last 8 Weeks: No Medications and Allergies Active Medications: Active Medications Acetaminophen (Tylenol) 650 mg PO Q6H PRN PRN Reason: PAIN 1-10 AND/OR FEVER >101F Al Hydroxide/Mg Hydroxide (Milk Of Magnesia Liq) 30 ml PO Q12H PRN PRN Reason: Mild Constipation Albuterol (Duoneb Neb (Prn)) 1 ampul NEB Q2HR NEB PRN PRN Reason: WHEEZING Bisacodyl (Dulcolax Supp) 10 mg RECTAL DAILY PRN PRN Reason: SEVERE CONSITIPATION Chlorhexidine Gluconate (Chlorhexidine 2% Cloth) 3 pack TOPICAL DAILY@0400 VIJAYA Stop: 05/01/18 03:59 Chlorhexidine Gluconate (Chlorhexidine 2% Cloth) 3 pack TOPICAL DAILY@0400 PRN PRN Reason: Extra cloth needed Stop: 05/01/18 03:59 Famotidine (Pepcid Pf Inj) 20 mg IV.PUSH Q12HR VIJAYA Heparin Sodium (Porcine) (Heparin Inj) 5,000 units SQ Q8H VIJAYA Sodium Chloride (Ns Inj) 500 mls @ 0 mls/hr IV.SIG BOLUS VIJAAY Last Admin: 04/25/18 19:48 Dose: 1,000 mls/hr Norepinephrine Bitartrate (Levophed-Dextrose 4 Mg/250 Ml Drip) 4 mg in 250 mls @ 7.5 mls/hr IV.SIG TITRATE PRN; Protocol PRN Reason: Per Protocol Vancomycin HCl 1,000 mg/ (Sodium Chloride) 250 mls @ 200 mls/hr IV.SIG ONCE ONE Stop: 04/25/18 20:59 Sodium Chloride (Ns Inj) 1,000 mls @ 154 mls/hr IV.CONT .Q6H30M VIJAYA Piperacillin/Tazobactam/Dextrose (Zosyn 4.5 Gm Premix) 4.5 gm in 100 mls @ 200 mls/hr IV.SIG Q6H VIJAYA Sodium Chloride (Ns Inj) 1,000 mls @ 0 mls/hr IV.SIG BOLUS VIJAYA Stop: 04/26/18 20:43 Lactulose (Lactulose Liq) 30 ml PO DAILY PRN PRN Reason: SEVERE CONSITIPATION Metoclopramide HCl (Reglan Inj) 5 mg IV.PUSH Q6HR VIJAYA; Protocol Non-Formulary Medication (Prednisone [Prednisone]) 10 mg PO DAILY VIJAYA Ondansetron HCl (Zofran Inj) 4 mg IV.PUSH Q6H PRN PRN Reason: NAUSEA OR VOMITING Pharmacy Profile Note (Vancomycin Consult Pharmacy) 1 each OTHER UNSCH ONE Stop: 04/25/18 20:37 Senna/Docusate Sodium (Krystin-Colace) 1 tab PO BID [facility] Sennosides (Senokot) 17.2 mg PO Q12H PRN PRN Reason: Moderate Constipation Sodium Chloride (Ns Flush) 2 ml IV.FLUSH BID VIJAYA Sodium Chloride (Ns Flush) 2 ml IV.FLUSH PRN PRN PRN Reason: FLUSH AFTER USING IV ACCESS Tamsulosin HCl (Flomax) 0.4 mg PO DAILY [facility] Terbutaline Sulfate (Brethine Inj) 1 mg SQ UNSCH PRN PRN Reason: For Extravasation Allergies Allergy/AdvReac Type Severity Reaction Status Date / Time aspirin Allergy Mild HEART RATE Verified 03/25/18 20:32 INCREASES caffeine Allergy Mild HEART RATE Verified 03/25/18 20:32 INCREASES Home Medications Medication Instructions Recorded Confirmed Type metoprolol tartrate 50 mg PO BID 03/12/18 04/25/18 History Results - Labs CBC & Chem 7: 04/25/18 19:00 04/25/18 19:00 Labs: BMP 04/25/18 19:00 Sodium 131 L Potassium 5.4 H Chloride 95 L Carbon Dioxide 21.9 BUN 112 H Creatinine 4.03 H Calcium 8.1 L Cardiac Enzymes 04/25/18 Range/Units 19:00 Troponin I 0.06 H (0.02-0.05) ng/mL Liver Function 04/25/18 Range/Units 19:00 Total Bilirubin 1.0 (0.2-1.0) mg/dL AST 16 (15-37) U/L ALT 21 (12-78) U/L Alkaline Phosphatase 102 (45-117) U/L Albumin 2.1 L (3.4-5.0) g/dL Urine 04/25/18 Range/Units 19:25 Urine Color Mei (Yellw/Straw) Urine Clarity Turbid H (Clear) Urine pH 5.0 (5.0-8.5) Ur Specific [place] 1.010 (1.002-1.035) Urine Protein 30 H (Neg-Trace) mg/dL Urine Glucose (UA) Negative (Negative) mg/dL - Imaging Impressions Chest X-Ray 04/25/18 18:59 CONCLUSION: 1. Bibasilar patchiness consistent with atelectasis and/or infiltrates. 2. Cardiomegaly. Exam Vital signs: Vital Signs 04/25/18 19:06 Temperature 97.7 F Pulse Rate 116 H Respiratory Rate 26 H Blood Pressure 88/53 L Pulse Oximetry 96 - Constitutional mild distress - Routine HEENT Exam Head: Present: normocephalic, atraumatic - Routine Neck Exam Present: supple, full ROM. Absent: JVD, swelling - Routine Respiratory Exam Present: rhonchi. Absent: accessory muscle use, rales, respiratory distress, stridor, wheezes - Routine Cardiovascular Exam Present: S1, S2. Absent: JVD - Routine Abdominal Exam Present: soft, normoactive bowel sounds - Routine Extremities Exam Absent: cyanosis, clubbing - Routine Skin Exam Present: intact. Absent: cyanosis - Routine Neurological Exam Present: alert Septic Shock Reassessment Septic shock perfusion: reassessment completed Caprini VTE Risk Assessment Caprini VTE Risk Assessment: Moderate/High Risk (score >= 2) Caprini Risk Assessment Model: Point Value = 1 Point Value = 2 Point Value = 3 Point Value = 5 Age 41-60 Minor surgery BMI > 25 kg/m2 Swollen legs Varicose veins or History of unexplained or recurrent spontaneous Oral contraceptives or hormone replacement Sepsis (< 1 month) Serious lung disease, including pneumonia (< 1 month) Abnormal pulmonary function Acute myocardial infarction Congestive heart failure (< 1 month) History of inflammatory bowel disease Medical patient at bed rest Age 61-74 Arthroscopic surgery Major open surgery (> 45 min) Laparoscopic surgery (> 45 min) Malignancy Confined to bed (> 72 hours) Immobilizing plaster cast Central venous access Age >= 75 History of VTE Family history of VTE Factor V Leiden Prothrombin [id number] Lupus anticoagulant Anticardiolipin antibodies Elevated serum homocysteine Heparin-induced thrombocytopenia Other congenital or acquired thrombophilia Stroke (< 1 month) Elective arthroplasty Hip, pelvis, or leg fracture Acute spinal cord injury (< 1 month) Prophylaxis Regimen: Total Risk Factor Score Risk Level Prophylaxis Regimen 0-1 Low Early ambulation 2 Moderate Order ONE of the following: *Sequential Compression Device (SCD) *Heparin 5000 units SQ BID 3-4 Higher Order ONE of the following medications: *Heparin 5000 units SQ TID *Enoxaparin/Lovenox 40 mg SQ daily (WT < 150 kg, CrCl > 30 mL/min) *Enoxaparin/Lovenox 30 mg SQ daily (WT < 150 kg, CrCl > 10-29 mL/min) *Enoxaparin/Lovenox 30 mg SQ BID (WT < 150 kg, CrCl > 30 mL/min) AND/OR *Sequential Compression Device (SCD) 5 or more Highest Order ONE of the following medications: *Heparin 5000 units SQ TID (Preferred with Epidurals) *Enoxaparin/Lovenox 40 mg SQ daily (WT < 150 kg, CrCl > 30 mL/min) *Enoxaparin/Lovenox 30 mg SQ daily (WT < 150 kg, CrCl > 10-29 mL/min) *Enoxaparin/Lovenox 30 mg SQ BID (WT < 150 kg, CrCl > 30 mL/min) AND *Sequential Compression Device (SCD) Assessment and Plan - Assessment and Plan Plan: Urosepsis -Broad-spectrum antibiotics -Follow-up cultures and de-escalate per sensitivity -Aggressive IV fluid hydration Hypertension -Due to above -IV fluid hydration -Levophed as needed to keep map above 65 Afib -Amiodarone -Eliquis History of hypertension -Hold all home antihypertensive meds due to sepsis and hypotension COPD -DuoNeb scheduled and as needed -Prednisone -Empiric antibiotics Diabetes mellitus -Hold metformin while in the ICU -Insulin sliding scale BPH -Flomax The total critical care time was 35 minutes. Time to perform other separately billable procedures was not included in the critical care time.
[2018-04-25] MEDS ORDERED: Dextrose 50% in Water 50 ML Vial IV.PUSH PRN (20:46)
[2018-04-25 21:29] LABS: Lymphocytes 22 % (9-44); Metamyelocytes 3 % (0-1); Monocytes 3 % (0-8)
[2018-04-25 21:30] LABS: Ovalocytes 1+
[2018-04-25 21:31] LABS: Basophilic Stippling Moderate
[2018-04-25 21:32] LABS: Target Cells 1+
[2018-04-26] MEDS ORDERED: Chlorhexidine Gluconate 2% 1 Pack (2 Cloths) TOPICAL PRN (04:00)
[2018-04-26] MEDS: Amiodarone 200 MG Tablet PO SCH ×2 (06:18→08:10)
[2018-04-26] MEDS: Insulin NovoLOG Aspart Correctional Sugar Inj SQ SCH ×5 (06:19→21:01)
[2018-04-26] MEDS: Sod Chloride 0.9% Inj 1,000 ML IV.CONT SCH ×5 (06:21→23:21)
[2018-04-26] MEDS: Famotidine PF Inj 20 MG/2 ML Vial IV.PUSH SCH ×3 (06:22→20:56)
[2018-04-26] MEDS: Chlorhexidine Gluconate 2% 1 Pack (2 Cloths) TOPICAL SCH (06:22)
[2018-04-26] MEDS: Senna/Docusate Sodium 8.6/50 MG Tablet PO SCH ×3 (06:22→20:55)
[2018-04-26] MEDS: Piperacil/Tazo 2.25 GM Premix 50 ML IV.SIG SCH ×4 (06:55→20:55)
[2018-04-26] MEDS: predniSONE 10 MG Tablet PO SCH (08:10)
[2018-04-26] MEDS: Lactobacillus Acidophilus/L. Spores Tablet PO SCH ×3 (08:10→17:10)
[2018-04-26] MEDS ORDERED: Sod Chloride 0.9% Inj 1,000 ML IV.SIG SCH ×2 (08:30→11:15)
[2018-04-26] MEDS ORDERED: LACTOBACILLUS ACIDOPHILUS PO SCH (09:00)
[2018-04-26] MEDS ORDERED: Midazolam Inj 5 MG/ML 1 ML Vial ONE (10:20)
--- NOTE | 2018-04-26 10:38 | P.CONID ---
History of Present Illness Service: Infectious disease Consult date: 04/26/18 Requesting Physician: Radha Nance Reason for Consult: Evaluation and Mment of Sepsis, Gram negative bacteremia. Primary Care Provider: Yfn Myles MD Family Provider: Yfn Myles MD History of Present Illness: is an 82 y/o CM who is a resident of [facility] under the care of Dr.Gerald Valente. Patient's past medical history is significant for COPD, history of respiratory failure in the past, muscle weakness, difficulty walking, obstructive uropathy, A. fib, hypertension, hyperlipidemia possible history of coronary artery disease. Patient reportedly also has a history of diabetes and is on insulin detemir as well as lispro [facility]. Of note he was admitted in December 2017 due to history of stool impaction, a colonoscopy revealed adenocarcinoma of the colon. Dr. Fry hematology oncology was consulted for abnormal CBC as well as diagnosis of adenocarcinoma. Upon review of Dr. Fry notes it appears that patient refused adjuvant chemotherapy and was offered a CT chest abdomen pelvis for staging in the hospital but refused to do so since he had one recently done as outpatient. I am unsure if the patient had any follow-up for the same. Patient was asked to take vitamin B12 supplement for possible B12 deficiency at that time. It appears that patient was recently treated for COPD exacerbation April 06, 2018 with prednisone possibly some antibiotics. Patient had a WBC count drawn on April 25, 2018 with a WBC count of 19.3 H&H of 9.7/30.4, platelets 87 his UA was abnormal and as there were budding yeast identified on urinalysis he was started on Diflucan by his primary care doctor Dr. Merrill at the jail. His creatinine was 3.57 his BUN was 121 glucose was 231 on the labs drawn on April 25, 2018. Due to worsening clinical condition while at the jail and labs patient was sent to the hospital for further evaluation. While in the emergency department WBC count was done which was at 26,000 he had a borderline low blood pressure and this was concerning for severe sepsis and therefore patient was admitted under the care of envelope sealing machine operator. Overnight patient seems to have received some fluids, sepsis workup was initiated and empiric antibiotics were started. Blood cultures drawn and admission are positive for gram-negative rods and infectious disease is consulted for the evaluation and management of septic shock due to gram-negative sepsis. At the time of my evaluation patient is in the ICU on 10 mics of Levophed. Urine output okay. Currently not intubated. Patient appears to be alert oriented 3 appears to be hard of hearing but when questioned about the colostomy bag he does not know the details so there is likely a component of acute encephalopathy. PMHx: Afib Arthritis COPD (chronic obstructive pulmonary disease) Adenocarcinoma of the colon Diabetes mellitus HLD (hyperlipidemia) HTN (hypertension) Polyneuropathy PSHx: Laparoscopic sigmoid colectomy with end colectomy and colostomy in place in December 2017. Pathology consistent with adenocarcinoma of the colon. Mobilization of splenic flexure at the same time. Repair of umbilical hernia December 2017. Several nasal endoscopic procedures. H/O nasal sinusotomy History of ethmoidectomy. History of maxillary sinus so to me. History of umbilical hernia repair. Right knee arthroplasty as well as patellectomy. Status post laser cataract surgery of both eyes Social history: Denies any IV drug abuse. Denies any alcohol abuse. Extensive smoking history in the past quit only 8 years prior to his admission in December 2017. Has a daughter who lives in [facility]. He is a resident of her jail. Above past medical history surgical history as well as social history was obtained and verified by me and there might be discrepancy from pre-populated parts from the template. Review of Systems All other systems reviewed negative except as stated in HPI, unobtainable due to mental condition. No: unobtainable due to endotracheal tube PMFSH - History History Provided By: Patient, Medical Record - Medical History Medical History: Medical History (Last Reviewed 04/25/18 @ 19:33 by DANTE Jovel) Afib Arthritis COPD (chronic obstructive pulmonary disease) Colon cancer Diabetes mellitus HLD (hyperlipidemia) HTN (hypertension) Polyneuropathy - Surgical History Surgical History: Surgical History (Last Reviewed 04/25/18 @ 19:33 by DANTE Jovel) Colostomy in place H/O nasal sinusotomy History of ethmoidectomy History of umbilical hernia repair History of unicondylar arthroplasty of right knee Status post laser cataract surgery of both eyes - Family History Family History: Family History (Last Reviewed 04/25/18 @ 19:33 by DANTE Jovel) Father Motor vehicle accident Mother Old age - Tobacco History Second Hand Smoke Exposure: No Tobacco Use In Past 30 Days: No Smoking Status: Former smoker (Quit smoking 8 years ago) Tobacco Type: Cigarettes Smoking End Date: 2009 - Alcohol History How Often Do You Have a Drink Containing Alcohol: Never - Substance Use History Substance History: No History of Abuse, Unable to Obtain - Travel History Recent Travel in the [place] Within the Last 8 Weeks: No Recent Travel Out of the Country Within the Last 8 Weeks: No Medications and Allergies Active Medications: Active Medications Acetaminophen (Tylenol) 650 mg PO Q6H PRN PRN Reason: PAIN 1-10 AND/OR FEVER >101F Al Hydroxide/Mg Hydroxide (Milk Of [place]) 30 ml PO Q12H PRN PRN Reason: Mild Constipation Albuterol (Duoneb Neb (Prn)) 1 ampul NEB Q2HR NEB PRN PRN Reason: WHEEZING Amiodarone HCl (Cordarone) 200 mg PO Q12HR [facility] Last Admin: 04/26/18 08:10 Dose: 200 mg Apixaban (Eliquis) 2.5 mg PO BID [facility] Last Admin: 04/26/18 08:09 Dose: 2.5 mg Bisacodyl (Dulcolax Supp) 10 mg RECTAL DAILY PRN PRN Reason: SEVERE CONSITIPATION Chlorhexidine Gluconate (Chlorhexidine 2% Cloth) 3 pack TOPICAL DAILY@0400 [facility] Stop: 05/01/18 03:59 Last Admin: 04/26/18 06:22 Dose: 3 pack Chlorhexidine Gluconate (Chlorhexidine 2% Cloth) 3 pack TOPICAL DAILY@0400 PRN PRN Reason: Extra cloth needed Stop: 05/01/18 03:59 Dextrose (D50w Vial) 50 ml IV.PUSH UNSCH PRN PRN Reason: PER HYPOGLYCEMIA PROTOCOL Famotidine (Pepcid Pf Inj) 10 mg IV.PUSH Q12HR [facility] Last Admin: 04/26/18 08:10 Dose: 10 mg Glucagon (Glucagon Inj) 1 mg OTHER PRN PRN PRN Reason: for Hypoglycemia Protocol Norepinephrine Bitartrate (Levophed-Dextrose 4 Mg/250 Ml Drip) 4 mg in 250 mls @ 7.5 mls/hr IV.SIG TITRATE PRN; Protocol PRN Reason: Per Protocol Last Titration: 04/26/18 08:30 Dose: 0 mcg/min, 0 mls/hr Sodium Chloride (Ns Inj) 1,000 mls @ 154 mls/hr IV.CONT .Q6H30M [facility] Last Admin: 04/26/18 06:56 Dose: 154 mls/hr Sodium Chloride (Ns Inj) 1,000 mls @ 0 mls/hr IV.SIG BOLUS [facility] Stop: 04/26/18 20:43 Piperacillin/Tazobactam/Dextrose (Zosyn 2.25 Gm Premix) 50 mls @ 100 mls/hr IV.SIG Q6H [facility] Last Infusion: 04/26/18 08:50 Dose: Infused Insulin Aspart (Novolog Insulin Correctional Sugar Inj) 0 unit SQ ACHS [facility]; Protocol Last Admin: 04/26/18 08:11 Dose: 2 unit Ipratropium Frohna (Atrovent Neb) 0.5 mg NEB Q2HR NEB PRN PRN Reason: Shortness Of Breath/Wheezing Lactobacillus Acidophilus (Lactinex) 1 tab PO TID [facility] Last Admin: 04/26/18 08:10 Dose: 1 tab Lactulose (Lactulose Liq) 30 ml PO DAILY PRN PRN Reason: SEVERE CONSITIPATION Metoclopramide HCl (Reglan Inj) 5 mg IV.PUSH Q6HR [facility]; Protocol Last Admin: 04/26/18 08:46 Dose: 5 mg Ondansetron HCl (Zofran Inj) 4 mg IV.PUSH Q6H PRN PRN Reason: NAUSEA OR VOMITING Oxycodone HCl (Roxicodone) 5 mg PO Q6H PRN PRN Reason: Pain 3 to 10 Pharmacy Profile Note (Vancomycin Consult Pharmacy) 1 each OTHER UNSCH PRN PRN Reason: PHARMACY CONSULT Prednisone (Deltasone) 10 mg PO DAILY [facility] Last Admin: 04/26/18 08:10 Dose: 10 mg Senna/Docusate Sodium (Krystin-Colace) 1 tab PO BID [facility] Last Admin: 04/26/18 08:10 Dose: 1 tab Sennosides (Senokot) 17.2 mg PO Q12H PRN PRN Reason: Moderate Constipation Sodium Chloride (Ns Flush) 2 ml IV.FLUSH BID [facility] Last Admin: 04/26/18 08:11 Dose: 2 ml Sodium Chloride (Ns Flush) 2 ml IV.FLUSH PRN PRN PRN Reason: FLUSH AFTER USING IV ACCESS Tamsulosin HCl (Flomax) 0.4 mg PO DAILY [facility] Last Admin: 04/26/18 08:10 Dose: 0.4 mg Terbutaline Sulfate (Brethine Inj) 1 mg SQ UNSCH PRN PRN Reason: For Extravasation Allergies Allergy/AdvReac Type Severity Reaction Status Date / Time aspirin Allergy Mild HEART RATE Verified 03/25/18 20:32 INCREASES caffeine Allergy Mild HEART RATE Verified 03/25/18 20:32 INCREASES Home Medications Medication Instructions Recorded Confirmed Type metoprolol tartrate 50 mg PO BID 03/12/18 04/25/18 History Exam Vital signs: Vital Signs 04/25/18 19:06 04/25/18 19:30 04/25/18 19:45 Temperature 97.7 F 101 F H Pulse Rate 116 H 108 H 112 H Respiratory Rate 26 H 26 H 24 Blood Pressure 88/53 L 85/50 L 76/46 L Pulse Oximetry 96 98 97 04/25/18 20:00 04/25/18 20:15 04/25/18 20:30 Temperature Pulse Rate 108 H 110 H 108 H Respiratory Rate 25 H 26 H 24 Blood Pressure 83/52 L 73/36 L 71/49 L Pulse Oximetry 98 95 96 04/25/18 20:38 04/25/18 20:45 04/25/18 21:00 Temperature Pulse Rate 108 H 110 H Respiratory Rate 24 24 Blood Pressure 79/49 L 79/53 L Pulse Oximetry 96 97 97 04/25/18 21:15 04/25/18 22:00 04/25/18 22:30 Temperature 98.4 F Pulse Rate 108 H 120 H 117 H Respiratory Rate 26 H 13 16 Blood Pressure 87/52 L 96/51 L 89/54 L Pulse Oximetry 98 93 L 88 L 04/25/18 23:00 04/25/18 23:02 04/25/18 23:30 Temperature Pulse Rate 118 H 121 H 120 H Respiratory Rate 19 14 12 Blood Pressure 80/51 L 79/55 L Pulse Oximetry 94 L 95 95 04/26/18 00:00 04/26/18 00:30 04/26/18 01:00 Temperature Pulse Rate 121 H 121 H 118 H Respiratory Rate 13 14 14 Blood Pressure 79/54 L 86/56 L 90/51 L Pulse Oximetry 92 L 95 95 04/26/18 01:30 04/26/18 02:00 04/26/18 02:30 Temperature Pulse Rate 122 H 121 H 122 H Respiratory Rate 14 12 15 Blood Pressure 95/65 L 92/50 L 82/60 L Pulse Oximetry 93 L 94 L 95 04/26/18 03:00 04/26/18 03:30 04/26/18 04:00 Temperature Pulse Rate 119 H 122 H 127 H Respiratory Rate 15 12 30 H Blood Pressure 85/62 L 95/59 L 109/61 Pulse Oximetry 94 L 96 95 04/26/18 04:30 04/26/18 05:00 04/26/18 05:30 Temperature Pulse Rate 122 H 126 H 122 H Respiratory Rate 14 18 16 Blood Pressure 87/50 L 94/52 L 77/52 L Pulse Oximetry 95 93 L 95 04/26/18 06:00 Temperature 98.8 F Pulse Rate 58 L Respiratory Rate 22 Blood Pressure 86/52 L Pulse Oximetry 95 Intake & Output 04/25/18 04/26/18 04/26/18 18:59 06:59 18:59 Intake Total 1100 / 1100 350 / 350 Output Total 405 / 405 Balance 695 / 695 350 / 350 Weight 107.5 kg Intake: IV 1100 / 1100 350 / 350 Zosyn 2.25 GM Premix 50 ML @ 100 / 100 100 mls/hr IV.SIG Q6H [facility] Rx#: [id number] Zosyn 4.5 GM Premix 4.5 gm In 100 / 100 100 ml @ 200 mls/hr IV.SIG ONCE ONE Rx#:[id number] NS Inj 500 ML @ Wide Open IV. 1000 / 1000 SIG BOLUS [facility] Rx#:[id number] Vancomycin Inj 1,000 MG In NS 250 / 250 Inj 250 ML @ 200 mls/hr IV.SIG ONCE ONE Rx#:[id number] Oral 0 / 0 Output: Urine 400 / 400 Stool 5 / 5 Other: Date of Last Bowel Movement 04/26/18 Weight On Admission 107.5 kg Narrative: GENERAL: Obese, well-developed, not in acute distress SKIN: Cool and dry, no generalized rash HEAD: Atraumatic. Normocephalic. No temporal or scalp tenderness. EYES: Pupils equal round and reactive. Scleral icterus. No injection or drainage. No petechia ENT: Nothing abnormal detected NECK: Trachea midline. Supple, nontender, no meningeal signs. CARDIOVASCULAR: HS audible. RESPIRATORY: Clear to auscultation bilaterally. GASTROINTESTINAL: Abdomen soft nontender. Colostomy bag in place with semi- formed stool. MUSCULOSKELETAL: Extremities without clubbing, cyanosis. NEUROLOGICAL: Alert oriented 3. Nonfocal. Psych cooperative IV line sites ok. Results - Labs CBC & Chem 7: 04/27/18 05:11 04/27/18 05:11 Labs: Laboratory Results - last 24 hr 04/25/18 04/25/18 04/25/18 19:00 19:00 19:00 WBC 26.2 H RBC 5.22 Hgb 10.1 L Hct 32.5 L MCV 62.1 L MCH 19.2 L MCHC 31.0 L RDW 17.8 H Plt Count 66 L MPV 9.1 Prelim Diff (Auto) Slide review pending Neut % (Auto) 75.4 H Lymph % (Auto) 22.6 Grand % (Auto) 1.7 Eos % (Auto) 0.2 Baso % (Auto) 0.1 Neut # (Auto) 19.8 H Lymph # (Auto) 5.9 H Grand # (Auto) 0.5 Eos # (Auto) 0.1 Baso # (Auto) 0.0 WBC Differential Manual diff final Seg Neuts % (Manual) 47 Band Neuts % (Manual) 25 H Lymphocytes % (Manual) 22 Monocytes % (Manual) 3 Metamyelocytes % (Man) 3 H Abs Neuts (Manual) 19.7 H Differential Comment . Platelet Estimate Low L Platelet Morphology Enlarged H Basophilic Stippling Moderate H Target Cells 1+ H Ovalocytes 1+ H PT 11.3 INR 1.1 APTT 24.8 Sodium 131 L Potassium 5.4 H Chloride 95 L Carbon Dioxide 21.9 Anion Gap 14 BUN 112 H Creatinine 4.03 H Estimated GFR 14 L POC Glucose Random Glucose 313 H Lactic Acid Calcium 8.1 L Total Bilirubin 1.0 AST 16 ALT 21 Alkaline Phosphatase 102 Troponin I 0.06 H B-Natriuretic Peptide Total Protein 5.9 L Albumin 2.1 L Urine Color Urine Clarity Urine pH Ur Specific [place] Urine Protein Urine Glucose (UA) Urine Ketones Urine Occult Blood Urine Nitrate Urine Bilirubin Urine Urobilinogen Ur Leukocyte Esterase Urine RBC Urine WBC Urine WBC Clumps Amorphous Sediment Urine Bacteria Urine Mucus Micro UA Comment Ur Microscopic Review Urine Culture Comments Nasal Screen MRSA (PCR) 04/25/18 04/25/1818 19:00 19:05 19:25 WBC RBC Hgb Hct MCV MCH MCHC RDW Plt Count MPV Prelim Diff (Auto) Neut % (Auto) Lymph % (Auto) Grand % (Auto) Eos % (Auto) Baso % (Auto) Neut # (Auto) Lymph # (Auto) Grand # (Auto) Eos # (Auto) Baso # (Auto) WBC Differential Seg Neuts % (Manual) Band Neuts % (Manual) Lymphocytes % (Manual) Monocytes % (Manual) Metamyelocytes % (Man) Abs Neuts (Manual) Differential Comment Platelet Estimate Platelet Morphology Basophilic Stippling Target Cells Ovalocytes PT INR APTT Sodium Potassium Chloride Carbon Dioxide Anion Gap BUN Creatinine Estimated GFR POC Glucose Random Glucose Lactic Acid 3.0 H Calcium Total Bilirubin AST ALT Alkaline Phosphatase Troponin I B-Natriuretic Peptide 445 H Total Protein Albumin Urine Color Mei Urine Clarity Turbid H Urine pH 5.0 Ur Specific [place] 1.010 Urine Protein 30 H Urine Glucose (UA) Negative Urine Ketones Negative Urine Occult Blood Moderate H Urine Nitrate Negative Urine Bilirubin Negative Urine Urobilinogen Less than 2 Ur Leukocyte Esterase Large H Urine RBC 26 H Urine WBC Urine WBC Clumps Many H Amorphous Sediment Occasional H Urine Bacteria Many H Urine Mucus Few H Micro UA Comment Cath-culture ind Ur Microscopic Review Not Reportable Urine Culture Comments Cath-cult indicated Nasal Screen MRSA (PCR) 04/26/18 04/26/18 04/26/18 03:38 04:41 08:06 WBC RBC Hgb Hct MCV MCH MCHC RDW Plt Count MPV Prelim Diff (Auto) Neut % (Auto) Lymph % (Auto) Grand % (Auto) Eos % (Auto) Baso % (Auto) Neut # (Auto) Lymph # (Auto) Grand # (Auto) Eos # (Auto) Baso # (Auto) WBC Differential Seg Neuts % (Manual) Band Neuts % (Manual) Lymphocytes % (Manual) Monocytes % (Manual) Metamyelocytes % (Man) Abs Neuts (Manual) Differential Comment Platelet Estimate Platelet Morphology Basophilic Stippling Target Cells Ovalocytes PT INR APTT Sodium Potassium Chloride Carbon Dioxide Anion Gap BUN Creatinine Estimated GFR POC Glucose 192 H Random Glucose Lactic Acid 1.3 Calcium Total Bilirubin AST ALT Alkaline Phosphatase Troponin I B-Natriuretic Peptide Total Protein Albumin Urine Color Urine Clarity Urine pH Ur Specific [place] Urine Protein Urine Glucose (UA) Urine Ketones Urine Occult Blood Urine Nitrate Urine Bilirubin Urine Urobilinogen Ur Leukocyte Esterase Urine RBC Urine WBC Urine WBC Clumps Amorphous Sediment Urine Bacteria Urine Mucus Micro UA Comment Ur Microscopic Review Urine Culture Comments Nasal Screen MRSA (PCR) Not detected - Imaging Impressions Chest X-Ray 04/25/18 18:59 CONCLUSION: 1. Bibasilar patchiness consistent with atelectasis and/or infiltrates. 2. Cardiomegaly. Assessment and Plan - Plan Septic shock Gram-negative bacteremia Bibasilar infiltrates atelectasis versus possible aspiration pneumonia Likely source GI or . Given history of colon cancer would be concerned about GI as a possible source. COPD Congestive heart failure Diabetes mellitus poorly controlled Acute renal failure likely sepsis but also has a history of BPH. Acute metabolic encephalopathy likely secondary to sepsis no known prior history of dementia. Thrombocytopenia likely secondary to sepsis. Recommendations Continue Zosyn IV Discontinue vancomycin IV due to acute renal failure Follow cultures X line repeat blood cultures 2 to document clearing Check CRP Check carcinoembryonic antigen in view of recent history of adenocarcinoma and no adjuvant chemotherapy. Once creatinine normalizes would like to obtain a CT chest abdomen pelvis to help with staging Consider consulting Oncology especially if CEA is trending higher than the last time, especially goals of care remain aggressive. Case discussed with RN Case discussed with Dr. 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
[2018-04-26] MEDS ORDERED: Lidocaine 1% Inj 50 ML Vial ONE (10:49)
[2018-04-26] MEDS ORDERED: Amiodarone Inj 150 MG in Dextrose 5% in Water Inj 97 ML IV.SIG ONE ×2 (11:04)
--- NOTE | 2018-04-26 11:04 | P.PNCC ---
Subjective Subjective Remarks/Hospital Course: 82-year-old male presents initially for an evaluation of abnormal labs at his [facility] facility. He was found to have a UTI and abnormal labs. Apparently his BUN and creatinine have been increased with his BUN being in the 120s and his creatinine in the 4s. His white count is critically elevated to 25 with severe bandemia, patient is also borderline hypotensive and therefore he is admitted to ICU with diagnosis of severe sepsis. Patient has significant history of CHF severely reduced ejection fracture. Patient himself is not a good historian cannot provide much history. No signs of trauma. SUBJ 04/26/18: Patient remains critically ill hypotensive encephalopathic. Currently on Levophed at 4 mcg/min despite 1 L fluid bolus. Blood cultures growing gram-negative rods. I will place central line and start vasopressin to attempt to wean off Levophed given atrial fibrillation. Currently patient is in atrial fibrillation with RVR will start amiodarone 150 mg bolus and infusion. Hold p.o. amiodarone Objective Vital Signs / I&O: Vital Signs 04/25/18 19:06 04/25/18 19:30 04/25/18 19:45 Temperature 97.7 F 101 F H Pulse Rate 116 H 108 H 112 H Respiratory Rate 26 H 26 H 24 Blood Pressure 88/53 L 85/50 L 76/46 L Pulse Oximetry 96 98 97 04/25/18 20:00 04/25/18 20:15 04/25/18 20:30 Temperature Pulse Rate 108 H 110 H 108 H Respiratory Rate 25 H 26 H 24 Blood Pressure 83/52 L 73/36 L 71/49 L Pulse Oximetry 98 95 96 04/25/18 20:38 04/25/18 20:45 04/25/18 21:00 Temperature Pulse Rate 108 H 110 H Respiratory Rate 24 24 Blood Pressure 79/49 L 79/53 L Pulse Oximetry 96 97 97 04/25/18 21:15 04/25/18 22:00 04/25/18 22:30 Temperature 98.4 F Pulse Rate 108 H 120 H 117 H Respiratory Rate 26 H 13 16 Blood Pressure 87/52 L 96/51 L 89/54 L Pulse Oximetry 98 93 L 88 L 04/25/18 23:00 04/25/18 23:02 04/25/18 23:30 Temperature Pulse Rate 118 H 121 H 120 H Respiratory Rate 19 14 12 Blood Pressure 80/51 L 79/55 L Pulse Oximetry 94 L 95 95 04/26/18 00:00 04/26/18 00:30 04/26/18 01:00 Temperature Pulse Rate 121 H 121 H 118 H Respiratory Rate 13 14 14 Blood Pressure 79/54 L 86/56 L 90/51 L Pulse Oximetry 92 L 95 95 04/26/18 01:30 04/26/18 02:00 04/26/18 02:30 Temperature Pulse Rate 122 H 121 H 122 H Respiratory Rate 14 12 15 Blood Pressure 95/65 L 92/50 L 82/60 L Pulse Oximetry 93 L 94 L 95 04/26/18 03:00 04/26/18 03:30 04/26/18 04:00 Temperature Pulse Rate 119 H 122 H 127 H Respiratory Rate 15 12 30 H Blood Pressure 85/62 L 95/59 L 109/61 Pulse Oximetry 94 L 96 95 04/26/18 04:30 04/26/18 05:00 04/26/18 05:30 Temperature Pulse Rate 122 H 126 H 122 H Respiratory Rate 14 18 16 Blood Pressure 87/50 L 94/52 L 77/52 L Pulse Oximetry 95 93 L 95 04/26/18 06:00 Temperature 98.8 F Pulse Rate 58 L Respiratory Rate 22 Blood Pressure 86/52 L Pulse Oximetry 95 Intake & Output 04/25/18 04/26/18 04/26/18 18:59 06:59 18:59 Intake Total 1100 / 1100 350 / 350 Output Total 405 / 405 Balance 695 / 695 350 / 350 Weight 107.5 kg Intake: IV 1100 / 1100 350 / 350 Zosyn 2.25 GM Premix 50 ML @ 100 / 100 100 mls/hr IV.SIG Q6H [facility] Rx#: [id number] Zosyn 4.5 GM Premix 4.5 gm In 100 / 100 100 ml @ 200 mls/hr IV.SIG ONCE ONE Rx#:[id number] NS Inj 500 ML @ Wide Open IV. 1000 / 1000 SIG BOLUS [facility] Rx#:[id number] Vancomycin Inj 1,000 MG In NS 250 / 250 Inj 250 ML @ 200 mls/hr IV.SIG ONCE ONE Rx#:[id number] Oral 0 / 0 Output: Urine 400 / 400 Stool 5 / 5 Other: Date of Last Bowel Movement 04/26/18 Weight On Admission 107.5 kg Result Diagrams: 04/25/18 19:00 04/26/18 09:47 Objective Remarks: - Constitutional Moderately distressed confused - Routine HEENT Exam Head: normocephalic, atraumatic - Routine Neck Exam supple, full ROM. No JVD - Routine Respiratory Exam Bilateral rhonchi. No accessory muscle use, rales, respiratory distress, stridor, wheezes - Routine Cardiovascular Exam Currently in atrial fibrillation with RVR. Hypotensive on Levophed 4 mcg/min - Routine Abdominal Exam soft, normoactive bowel sounds. Colostomy bag in place - Routine Extremities Exam No cyanosis, clubbing - Routine Skin Exam No cyanosis or rashes grossly - Routine Neurological Exam Patient is awake alert. He is oriented to person intermittently oriented to place. Moves all 4 extremities no focal deficits Assessment and Plan - Assessment and Plan Plan: Septic shock Gram-negative bacteremia UTI -Broad-spectrum antibiotics with Zosyn, vancomycin DC'd by ID -Follow-up cultures and de-escalate per sensitivity -Aggressive IV fluid hydration, additional 2 L bolus now -Currently on Levophed to keep map above 65 -Add vasopressin to reduce Levophed dose Atrial fibrillation with RVR History of hypertension -Hold po. amiodarone, give bolus 150 mg IV followed by amiodarone infusion per protocol -Levophed, Levophed as needed to keep map above 65 -Fluid resuscitation as above -Check limited echo -Continue Eliquis -Hold all antihypertensives due to septic shock -Patient is on chronic prednisone hold it and start stress dose steroids 100 mg hydrocortisone IV every 8 hours COPD -DuoNeb scheduled and as needed -Hold prednisone. IV hydrocortisone also above -Empiric antibiotics Diabetes mellitus -Hold metformin while in the ICU -Insulin sliding scale BPH -Flomax Proph: -IV famotidine and Eliquis will provide GI and DVT prophylaxis The total critical care time was 35 minutes. Time to perform other separately billable procedures was not included in the critical care time. Code Status: Full
--- NOTE | 2018-04-26 11:22 | P.PCN ---
Date of procedure: 04/26/18 Pre-op diagnosis: septic shock Post-op diagnosis: same Procedure: US guided RIJ central line Central line checklist completed, timeout completed. I wore a surgical cap, mask with protective eyewear, full gown and sterile gloves throughout the procedure. Right neck region was prepped using chlorhexidine scrub and draped in sterile fashion. The right IJ was identified using the ultrasound. Anesthesia was achieved over the vein using 1% lidocaine. The introducer needle was inserted into the right IJ under direct ultrasound visualization. Venous blood was withdrawn. The syringe was removed and a guidewire was advanced into the introducer needle. A small incision was made at the skin surface with a scalpel and the introducer needle was exchanged for a dilator over the guidewire. After appropriate dilation was obtained, the dilator was exchanged over the wire for a triple lumen, 7F, antibiotic coated central venous catheter. The wire was removed and the catheter was sutured in place at 18 cm. A sterile central line dressing was placed over the catheter at the insertion site. The patient tolerated the procedure without any hemodynamic compromise. At time of procedure completion, all ports aspirated and flushed properly. Post- procedure chest x-ray is pending at this time. Anesthesia: local Surgeon: Radha Nance Estimated blood loss (mL): 1 Pathology: none sent Condition: critical Disposition: ICU
--- NOTE | 2018-04-26 11:39 | XR ---
EXAM DATE: 04/26/2018 11:36 AM EDT AGE/SEX: 82 years / Male INDICATIONS: Right IJ central line placement. CLINICAL DATA: This is the patient's initial encounter. Patient reports that signs and symptoms have been present for 3 days and indicates a pain score of Nonresponsive. MEDICAL/SURGICAL HISTORY: Carcinoma, colon. Chronic obstructive pulmonary disease. . none know n COMPARISON: [facility], CHEST 1V SINGLE AP, 04/25/2018. . FINDINGS: Right jugular line is noted in the distal tip overlies the expected location of the SVC. Cardiomegaly and aortic calcification. No consolidation or effusion. Degenerative changes of the spine. CONCLUSION: Central line placement as above. Electronically signed by: Johnathan Alanis MD 04/26/2018 11:37 AM EDT
[2018-04-26] MEDS: Vasopressin Inj 40 UNIT in Sodium Chlor 0.9% Inj 98 ML IV.CONT SCH (12:18)
[2018-04-26] MEDS: Hydrocortisone Sod Succinate 100 MG Vial IV.PUSH SCH ×2 (13:29→21:01)
[2018-04-26] MEDS ORDERED: Midazolam Inj 5 MG/ML 1 ML Vial IV.PUSH ONE (13:30)
[2018-04-26 16:21] LABS: C-Reactive Protein 22.2 mg/dL (0.00-0.30); Carcinoembryonic Antigen 2.6 ng/mL (0.2-5.0)
[2018-04-26 17:31] LABS: Hepatitis A IgM Antibody Nonreactive (Nonreactive); Hepatitits B Surface Antigen Nonreactive (Nonreactive)
[2018-04-26] MEDS ORDERED: Dextrose 50% in Water 50 ML Vial IV.PUSH PRN (17:31)
[2018-04-26] MEDS: Insulin Detemir Inj 1,000 UNIT/10 ML Vial SQ SCH (20:55)
--- NOTE | 2018-04-26 21:27 | ECG ---
Date Performed: 04/25/2018 Time Performed: 21:07:05 PTAGE: 82 years EKG: ATRIAL FIBRILLATION WITH RAPID VENTRICULAR RESPONSE INFERIOR MYOCARDIAL INFARCTION ABNORMAL ECG PREVIOUS TRACING : 03/25/2018 14.27 Compared to previous tracing, Afib with RVR is new DOCTOR: Mk Bah Interpretating Date/Time 04/26/2018 21:27:14
--- NOTE | 2018-04-27 02:09 | XR ---
EXAM DATE: 04/27/2018 1:58 AM EDT AGE/SEX: 82 years / Male INDICATIONS: Shortness of breath, possible pulmonary disease. CLINICAL DATA: This is the patient's subsequent encounter. Patient reports that signs and symptoms h ave been present for 4 - 6 days and indicates a pain score of Nonresponsive. MEDICAL/SURGICAL HISTORY: Carcinoma, colon. Chronic obstructive pulmonary disease. None. COMPARISON: [facility] [place], [place]ST 1V SINGLE AP, 04/26/2018. . FINDINGS: Mild bibasilar consolidation and small effusions present, both sides slightly worse in the interim. N o pneumothorax. Heart size stable, upper limits of normal. Right subclavian central venous catheter again seen, tip in the superior vena cava. CONCLUSION: Mild consolidation and small effusions at each base, slightly worse in the interim. Electronically signed by: Goyo Chen MD 04/27/2018 2:08 AM EDT
[2018-04-27] MEDS: Piperacil/Tazo 2.25 GM Premix 50 ML IV.SIG SCH ×4 (02:12→20:20)
[2018-04-27] MEDS: Vasopressin Inj 40 UNIT in Sodium Chlor 0.9% Inj 98 ML IV.CONT SCH (02:33)
[2018-04-27] MEDS: Sod Chloride 0.9% Inj 1,000 ML IV.CONT SCH ×2 (05:23→13:20)
[2018-04-27] MEDS: Chlorhexidine Gluconate 2% 1 Pack (2 Cloths) TOPICAL SCH (05:23)
[2018-04-27] MEDS: Hydrocortisone Sod Succinate 100 MG Vial IV.PUSH SCH ×3 (05:24→21:27)
[2018-04-27 05:35] LABS: Hematocrit 28.8 % (39.0-51.0); Mean Corpuscular HGB Conc 31.2 % (32.0-36.0); Mean Corpuscular Hemoglobin 19.2 pg (27.0-34.0); Mean Corpuscular Volume 61.8 fL (80.0-100.0); Mean Platelet Volume 8.9 fL (7.0-11.0); Platelet Count 61 th/mm3 (150-450); Red Blood Count 4.66 mil/mm3 (4.50-5.90); Red Cell Distribution Width 18.7 % (11.6-17.2); White Blood Count 24.3 th/mm3 (4.0-11.0)
[2018-04-27 06:22] LABS: Alanine Aminotransferase 20 U/L (12-78); Albumin 1.9 g/dL (3.4-5.0); Alkaline Phosphatase 82 U/L (45-117); Anion Gap 9 meq/L (5-15); Aspartate Aminotransferase 20 U/L (15-37); Blood Urea Nitrogen 91 mg/dL (7-18); Calcium 7.9 mg/dL (8.5-10.1); Carbon Dioxide 24.1 meq/L (21.0-32.0); Chloride 106 meq/L (98-107); Glomerular Filtration Rate 24 mL/min (>89); Glucose,Random 231 mg/dL (74-106); Potassium 4.5 meq/L (3.5-5.1); Sodium 139 meq/L (136-145); Total Protein 5.4 g/dL (6.4-8.2)
[2018-04-27] MEDS: Senna/Docusate Sodium 8.6/50 MG Tablet PO SCH ×2 (07:59→20:21)
[2018-04-27] MEDS: Lactobacillus Acidophilus/L. Spores Tablet PO SCH ×3 (08:00→17:00)
[2018-04-27] MEDS: Insulin Detemir Inj 1,000 UNIT/10 ML Vial SQ SCH ×2 (08:00→20:19)
[2018-04-27] MEDS: Famotidine PF Inj 20 MG/2 ML Vial IV.PUSH SCH ×2 (08:00→20:20)
[2018-04-27] MEDS: Insulin NovoLOG Aspart Correctional Sugar Inj SQ SCH ×4 (08:01→20:18)
[2018-04-27] MEDS ORDERED: Amiodarone 200 MG Tablet PO ONE (08:15)
--- NOTE | 2018-04-27 09:48 | P.PNCC ---
Subjective Subjective Remarks/Hospital Course: 82-year-old male presents initially for an evaluation of abnormal labs at [facility]. He was found to have a UTI and abnormal labs. Apparently his BUN and creatinine have been increased with his BUN being in the 120s and his creatinine in the 4s. His white count is critically elevated to 25 with severe bandemia, patient is also borderline hypotensive and therefore he is admitted to ICU with diagnosis of severe sepsis. Patient has significant history of CHF severely reduced ejection fracture. Patient himself is not a good historian cannot provide much history. No signs of trauma. SUBJ 04/26/18: Patient remains critically ill hypotensive encephalopathic. Currently on Levophed at 4 mcg/min despite 1 L fluid bolus. Blood cultures growing gram-negative rods. I will place central line and start vasopressin to attempt to wean off Levophed given atrial fibrillation. Currently patient is in atrial fibrillation with RVR will start amiodarone 150 mg bolus and infusion. Hold p.o. amiodarone 04/27/18: Patient's blood pressure is normal now will DC vasopressin. WBC count slightly improved to 24.3 BUN/creatinine improved 91/2.6. Will start back on p.o. amiodarone and weaned to DC amiodarone infusion. Blood cultures positive for GNR urine culture positive for GNR appreciate ID input Objective Vital Signs / I&O: Vital Signs 04/26/18 10:44 04/26/18 10:46 04/26/18 10:48 Temperature Pulse Rate 129 H 130 H 131 H Respiratory Rate 23 21 Blood Pressure 102/67 107/59 L 112/64 Pulse Oximetry 100 98 100 04/26/18 10:50 04/26/18 10:52 04/26/18 10:54 Temperature Pulse Rate 131 H 130 H 132 H Respiratory Rate 21 22 Blood Pressure 128/97 H 107/59 L 142/70 H Pulse Oximetry 97 97 98 04/26/18 10:56 04/26/18 10:58 04/26/18 11:00 Temperature Pulse Rate 127 H 131 H 130 H Respiratory Rate 19 17 Blood Pressure 98/52 L 105/61 112/61 Pulse Oximetry 98 99 99 04/26/18 11:02 04/26/18 11:04 04/26/18 11:06 Temperature Pulse Rate 125 H 129 H 128 H Respiratory Rate 16 Blood Pressure 90/62 L 131/58 L 126/59 L Pulse Oximetry 97 96 96 04/26/18 11:15 04/26/18 11:30 04/26/18 11:45 Temperature Pulse Rate 133 H 129 H 128 H Respiratory Rate 24 19 18 Blood Pressure 118/58 L 99/58 L 108/65 Pulse Oximetry 96 96 96 04/26/18 12:00 04/26/18 12:15 04/26/18 12:30 Temperature Pulse Rate 137 H 132 H 131 H Respiratory Rate 19 20 Blood Pressure 104/70 119/80 130/81 Pulse Oximetry 96 96 96 04/26/18 12:45 04/26/18 13:00 04/26/18 13:15 Temperature Pulse Rate 117 H 111 H 116 H Respiratory Rate 22 15 19 Blood Pressure 118/68 101/59 L 91/68 L Pulse Oximetry 96 93 L 96 04/26/18 13:30 04/26/18 13:45 04/26/18 14:00 Temperature Pulse Rate 125 H 126 H 125 H Respiratory Rate 23 23 20 Blood Pressure 101/61 80/50 L 88/53 L Pulse Oximetry 96 97 98 04/26/18 14:15 04/26/18 14:30 04/26/18 14:45 Temperature Pulse Rate 126 H 120 H 113 H Respiratory Rate 17 16 24 Blood Pressure 98/60 L 89/57 L 88/51 L Pulse Oximetry 95 92 L 96 04/26/18 15:00 04/26/18 15:15 04/26/18 15:30 Temperature Pulse Rate 116 H 111 H 117 H Respiratory Rate 20 21 38 H Blood Pressure 100/64 104/67 107/59 L Pulse Oximetry 98 97 95 04/26/18 15:45 04/26/18 16:00 04/26/18 16:15 Temperature Pulse Rate 116 H 105 H 112 H Respiratory Rate 22 18 20 Blood Pressure 98/57 L 102/58 L 102/56 L Pulse Oximetry 96 96 95 04/26/18 16:30 04/26/18 16:45 04/26/18 17:00 Temperature Pulse Rate 112 H 110 H 108 H Respiratory Rate 22 23 22 Blood Pressure 101/55 L 100/61 118/68 Pulse Oximetry 96 95 96 04/26/18 17:15 04/26/18 17:30 04/26/18 17:45 Temperature Pulse Rate 111 H 113 H 108 H Respiratory Rate 23 21 23 Blood Pressure 112/63 107/63 107/59 L Pulse Oximetry 96 96 97 04/26/18 17:54 04/26/18 18:00 04/26/18 18:15 Temperature Pulse Rate 120 H 120 H Respiratory Rate 24 27 H Blood Pressure 106/58 L 94/57 L Pulse Oximetry 96 96 94 L 04/26/18 18:30 04/26/18 18:45 04/26/18 19:00 Temperature Pulse Rate 174 H 109 H 101 H Respiratory Rate 42 H 24 21 Blood Pressure 97/60 L 104/59 L 101/51 L Pulse Oximetry 92 L 96 96 04/26/18 19:15 04/26/18 19:30 04/26/18 19:45 Temperature Pulse Rate 106 H 180 H 114 H Respiratory Rate 18 34 H 18 Blood Pressure 110/71 112/67 115/59 L Pulse Oximetry 96 96 97 04/26/18 20:00 04/26/18 20:15 04/26/18 20:22 Temperature 97.3 F L Pulse Rate 104 H 107 H 107 H Respiratory Rate 16 21 17 Blood Pressure 119/56 L 129/66 Pulse Oximetry 97 96 04/26/18 20:30 04/26/18 20:45 04/26/18 21:00 Temperature Pulse Rate 99 H 103 H 105 H Respiratory Rate 19 16 26 H Blood Pressure 123/58 L 122/59 L 116/58 L Pulse Oximetry 97 95 96 04/26/18 21:15 04/26/18 21:30 04/26/18 21:46 Temperature Pulse Rate 111 H 97 H 55 L Respiratory Rate 21 17 24 Blood Pressure 110/68 108/58 L 102/56 L Pulse Oximetry 95 95 97 04/26/18 22:00 04/26/18 22:15 04/26/18 22:30 Temperature Pulse Rate 56 L 56 L 57 L Respiratory Rate 16 26 H 22 Blood Pressure 105/53 L 106/57 L 108/58 L Pulse Oximetry 95 97 96 04/26/18 22:45 04/26/18 23:00 04/26/18 23:15 Temperature Pulse Rate 57 L 60 58 L Respiratory Rate 19 22 15 Blood Pressure 113/55 L 120/59 L 116/58 L Pulse Oximetry 98 98 98 04/26/18 23:30 04/26/18 23:45 08/30/18 00:00 Temperature 97.6 F Pulse Rate 56 L 58 L 59 L Respiratory Rate 18 20 20 Blood Pressure 110/57 L 123/59 L 124/57 L Pulse Oximetry 98 98 97 04/27/18 00:15 04/27/18 00:30 04/27/18 00:45 Temperature Pulse Rate 57 L 58 L 55 L Respiratory Rate 19 22 18 Blood Pressure 117/56 L 122/58 L 121/59 L Pulse Oximetry 97 97 98 04/27/18 01:00 04/27/18 01:15 04/27/18 01:30 Temperature Pulse Rate 55 L 56 L 55 L Respiratory Rate 18 20 17 Blood Pressure 120/55 L 122/59 L 124/61 Pulse Oximetry 97 98 97 04/27/18 01:40 04/27/18 01:45 04/27/18 02:00 Temperature Pulse Rate 52 L 53 L 54 L Respiratory Rate 17 14 15 Blood Pressure 121/60 120/58 L Pulse Oximetry 98 97 04/27/18 02:15 04/27/18 02:30 04/27/18 02:45 Temperature Pulse Rate 53 L 54 L 53 L Respiratory Rate 15 20 16 Blood Pressure 131/59 L 132/61 121/58 L Pulse Oximetry 95 96 97 04/27/18 03:00 04/27/18 03:15 04/27/18 03:30 Temperature Pulse Rate 55 L 56 L 54 L Respiratory Rate 13 15 15 Blood Pressure 123/63 145/66 H 134/66 Pulse Oximetry 97 97 97 04/27/18 03:45 04/27/18 04:00 04/27/18 04:15 Temperature 97.9 F Pulse Rate 54 L 55 L 55 L Respiratory Rate 14 17 15 Blood Pressure 137/64 135/68 137/71 Pulse Oximetry 97 98 98 04/27/18 04:30 04/27/18 04:45 04/27/18 05:00 Temperature Pulse Rate 56 L 54 L 55 L Respiratory Rate 19 15 18 Blood Pressure 153/67 H 137/65 130/62 Pulse Oximetry 97 95 97 04/27/18 05:16 04/27/18 05:30 04/27/18 05:45 Temperature Pulse Rate 56 L 53 L 55 L Respiratory Rate 15 15 18 Blood Pressure 149/70 H 139/67 141/71 H Pulse Oximetry 98 98 98 04/27/18 06:00 04/27/18 06:23 04/27/18 06:30 Temperature Pulse Rate 55 L 63 59 L Respiratory Rate 17 24 25 H Blood Pressure 145/71 H 157/72 H 145/73 H Pulse Oximetry 97 89 L 98 04/27/18 06:45 04/27/18 07:00 04/27/18 07:16 Temperature Pulse Rate 54 L 66 58 L Respiratory Rate 19 17 23 Blood Pressure 140/66 137/69 153/70 H Pulse Oximetry 98 98 98 04/27/18 08:40 Temperature Pulse Rate 57 L Respiratory Rate 26 H Blood Pressure Pulse Oximetry 97 Intake & Output 04/26/18 04/27/18 04/27/18 18:59 06:59 18:59 Intake Total 3500 / 3500 2630 / 2630 50 / 50 Output Total 1750 / 1750 1335 / 1335 Balance 1750 / 1750 1295 / 1295 50 / 50 Intake: IV 3500 / 3500 2450 / 2450 50 / 50 Cordarone Inj 450 MG In D5W Inj 250 / 250 241 ML @ 1 MG/MIN 33.33 mls/hr IV.CONT TITRATE PRN Rx#: [id number] NS Inj 1,000 ML @ 154 mls/hr IV 1000 / 1000 1999 .CONT .Q6H30M VIJAYA Rx#:[id number] Pitressin Inj 40 UNIT In NS Inj 100 / 100 98 ML @ 0.04 UNITS/MIN 6 mls/ hr IV.CONT CONT VIJAYA Rx#: [id number] Cordarone Inj 150 MG In D5W Inj 100 / 100 97 ML @ 100 mls/hr IV.SIG ONCE ONE Rx#:[id number] Zosyn 2.25 GM Premix 50 ML @ 150 / 150 100 / 100 50 / 50 100 mls/hr IV.SIG Q6H VIJAYA Rx#: [id number] NS Inj 1,000 ML @ Wide Open IV. 1999 SIG BOLUS VIJAYA Rx#:[id number] Vancomycin Inj 1,000 MG In NS 250 / 250 Inj 250 ML @ 200 mls/hr IV.SIG ONCE ONE Rx#:[id number] Oral 180 / 180 Output: Urine Amount (Catheter) 1650 / 1650 1125 / 1125 Indwelling Temp Sensing 1650 / 1650 1125 / 1125 Catheter Stool Amount (Stoma) 100 / 100 210 / 210 Pre-Hospital: Left Lower 100 / 100 210 / 210 Abdomen Other: Date of Last Bowel Movement 04/26/18 04/26/18 Result Diagrams: 04/27/18 05:11 04/27/18 05:11 Objective Remarks: - Constitutional Elderly male not in any acute distress - Routine HEENT Exam Head: normocephalic, atraumatic - Routine Neck Exam supple, full ROM. No JVD - Routine Respiratory Exam Few rhonchi. No accessory muscle use, rales, respiratory distress, stridor, wheezes - Routine Cardiovascular Exam Chronic A. fib rate controlled. Currently on amiodarone infusion. No murmurs - Routine Abdominal Exam soft, normoactive bowel sounds. Colostomy bag in place - Routine Extremities Exam No cyanosis, clubbing - Routine Skin Exam No cyanosis or rashes grossly - Routine Neurological Exam Patient is awake alert. He is oriented to person sometimes to place. Moves all 4 extremities no focal deficits Assessment and Plan - Assessment and Plan Plan: Septic shock Gram-negative bacteremia UTI -Broad-spectrum antibiotics with Zosyn. Vancomycin DC'd by ID 04/26 -Follow-up cultures and de-escalate per sensitivity -IV fluid hydration, reduce maintenance fluid rate to 50 mL/h -Discontinue vasopressin Atrial fibrillation with RVR History of hypertension -Resume po amiodarone, wean to DC amiodarone infusion -Check limited echo -Continue Eliquis -Hold all antihypertensives due to septic shock -Patient is on chronic prednisone which was placed on hold and started stress dose steroids 100 mg hydrocortisone IV every 8 hours on 04/26 Acute kidney failure -BUN/creatinine improving with aggressive hydration -CMP in a.m., continue to use IV fluid to 50 mL/h COPD -DuoNeb scheduled and as needed -Hold prednisone. IV hydrocortisone also above -Empiric antibiotics with Zosyn Diabetes mellitus -Hold metformin while in the ICU -Insulin sliding scale BPH -Flomax Proph: -IV famotidine and Eliquis will provide GI and DVT prophylaxis Level 3 Consult hospitalist to assume care in a.m. 04/28/2018
--- NOTE | 2018-04-27 12:01 | ECHRPT ---
Indication: Heart failure, unspecified CONCLUSIONS The left ventricle is not well visualized. The left ventricular systolic function is mildly reduced with an estimated ejection fraction in the range of 45- 50%. Wall thickness is measured at the upper limits of normal. Normal left ventricular size. The pulmonary valve is not well visualized. BP: / HR: 72 Rhythm: Sinus MEASUREMENTS (Male / Female) Normal Values Technical Quality:Fair 2D ECHO LV Diastolic Diameter PLAX 5.1 cm 4.2 - 5.9 / 3.9 - 5.3 cm LV Systolic Diameter PLAX 4.3 cm IVS Diastolic Thickness 1.1 cm 0.6 - 1.0 / 0.6 - 0.9 cm LVPW Diastolic Thickness 1.1 cm 0.6 - 1.0 / 0.6 - 0.9 cm LV Relative Wall Thickness 0.4 FINDINGS LEFT VENTRICLE The left ventricle is not well visualized. The left ventricular systolic function is mildly reduced with an estimated ejection fraction in the range of 45- 50%. Wall thickness is measured at the upper limits of normal. Normal left ventricular size. RIGHT VENTRICLE Normal right ventricular size and systolic function. LEFT ATRIUM The left atrial size is normal. RIGHT ATRIUM The right atrial size is normal. ATRIAL SEPTUM Normal atrial septal thickness without atrial level shunting by limited color doppler interrogation. AORTA The aortic root and proximal ascending aorta are normal in size on limited imaging. MITRAL VALVE Structurally normal mitral valve. No mitral valve stenosis or regurgitation. AORTIC VALVE Trileaflet aortic valve. No aortic valve stenosis or regurgitation. TRICUSPID VALVE Structurally normal tricuspid valve. No tricuspid valve stenosis or regurgitation. PULMONARY VALVE The pulmonary valve is not well visualized. VESSELS The inferior vena cava is normal in size. PERICARDIUM No pericardial effusion. Yury Warren MD, FACC (Electronically Signed) Final Date:27 April 2018 12:00
--- NOTE | 2018-04-27 12:01 | P.PNID ---
Subjective Remarks: ID X cover for Phill Garcesevelin chart was reviewed is an 82 y/o CM who is a resident of [facility] under the care of Dr.Gerald Valente. Patient's past medical history is significant for COPD, history of respiratory failure in the past, muscle weakness, difficulty walking, obstructive uropathy, A. fib, hypertension, hyperlipidemia possible history of coronary artery disease. Patient reportedly also has a history of diabetes and is on insulin detemir as well as lispro at the long-term. Of note he was admitted in December 2017 due to history of stool impaction, a colonoscopy revealed adenocarcinoma of the colon. Dr. Fry hematology oncology was consulted for abnormal CBC as well as diagnosis of adenocarcinoma. Upon review of Dr. Fry notes it appears that patient refused adjuvant chemotherapy and was offered a CT chest abdomen pelvis for staging in the hospital but refused to do so since he had one recently done as outpatient. I am unsure if the patient had any follow-up for the same. Patient was asked to take vitamin B12 supplement for possible B12 deficiency at that time. It appears that patient was recently treated for COPD exacerbation April 06, 2018 with prednisone possibly some antibiotics. Patient had a WBC count drawn on April 25, 2018 with a WBC count of 19.3 H&H of 9.7/30.4, platelets 87 his UA was abnormal and as there were budding yeast identified on urinalysis he was started on Diflucan by his primary care doctor Dr. Merrill at the long-term. His creatinine was 3.57 his BUN was 121 glucose was 231 on the labs drawn on April 25, 2018. Due to worsening clinical condition while at the long-term and labs patient was sent to the hospital for further evaluation. While in the emergency department WBC count was done which was at 26,000 he had a borderline low blood pressure and this was concerning for severe sepsis and therefore patient was admitted under the care of line cook. Overnight patient seems to have received some fluids, sepsis workup was initiated and empiric antibiotics were started. Blood cultures drawn and admission are positive for gram-negative rods and infectious disease is consulted for the evaluation and management of septic shock due to gram-negative sepsis. At the time of my evaluation patient is in the ICU on 10 mics of Levophed. Urine output okay. Currently not intubated. Patient appears to be alert oriented 3 appears to be hard of hearing but when questioned about the colostomy bag he does not know the details so there is likely a component of acute encephalopathy. PMHx: Afib Arthritis COPD (chronic obstructive pulmonary disease) Adenocarcinoma of the colon Diabetes mellitus HLD (hyperlipidemia) HTN (hypertension) Polyneuropathy PSHx: Laparoscopic sigmoid colectomy with end colectomy and colostomy in place in December 2017. Pathology consistent with adenocarcinoma of the colon. Mobilization of splenic flexure at the same time. Repair of umbilical hernia December 2017. Several nasal endoscopic procedures. H/O nasal sinusotomy History of ethmoidectomy. History of maxillary sinus so to me. History of umbilical hernia repair. Right knee arthroplasty as well as patellectomy. Status post laser cataract surgery of both eyes Overnight events reviewed with RN. off vasopressors Alert much more oriented today Urine output good Patient requests to be sent back to the rehab explained to him that he has bacteremia and we still need a couple of days to help stabilize him. No fever No rash No diarrhea Antibiotics: Zosyn IV Lines: Line sites with no evidence of infection. Past Medical History: Reviewed. Allergies/Adverse Reactions: Allergies aspirin Allergy (Mild, Verified 03/25/18 20:32) HEART RATE INCREASES caffeine Allergy (Mild, Verified 03/25/18 20:32) HEART RATE INCREASES Objective Vital Signs 04/26/18 12:00 04/26/18 12:15 04/26/18 12:30 Temperature Pulse Rate 137 H 132 H 131 H Respiratory Rate 19 20 Blood Pressure 104/70 119/80 130/81 Pulse Oximetry 96 96 96 04/26/18 12:45 04/26/18 13:00 04/26/18 13:15 Temperature Pulse Rate 117 H 111 H 116 H Respiratory Rate 22 15 19 Blood Pressure 118/68 101/59 L 91/68 L Pulse Oximetry 96 93 L 96 04/26/18 13:30 04/26/18 13:45 04/26/18 14:00 Temperature Pulse Rate 125 H 126 H 125 H Respiratory Rate 23 23 20 Blood Pressure 101/61 80/50 L 88/53 L Pulse Oximetry 96 97 98 04/26/18 14:15 04/26/18 14:30 04/26/18 14:45 Temperature Pulse Rate 126 H 120 H 113 H Respiratory Rate 17 16 24 Blood Pressure 98/60 L 89/57 L 88/51 L Pulse Oximetry 95 92 L 96 04/26/18 15:00 04/26/18 15:15 04/26/18 15:30 Temperature Pulse Rate 116 H 111 H 117 H Respiratory Rate 20 21 38 H Blood Pressure 100/64 104/67 107/59 L Pulse Oximetry 98 97 95 04/26/18 15:45 04/26/18 16:00 04/26/18 16:15 Temperature Pulse Rate 116 H 105 H 112 H Respiratory Rate 22 18 20 Blood Pressure 98/57 L 102/58 L 102/56 L Pulse Oximetry 96 96 95 04/26/18 16:30 04/26/18 16:45 04/26/18 17:00 Temperature Pulse Rate 112 H 110 H 108 H Respiratory Rate 22 23 22 Blood Pressure 101/55 L 100/61 118/68 Pulse Oximetry 96 95 96 04/26/18 17:15 04/26/18 17:30 04/26/18 17:45 Temperature Pulse Rate 111 H 113 H 108 H Respiratory Rate 23 21 23 Blood Pressure 112/63 107/63 107/59 L Pulse Oximetry 96 96 97 04/26/18 17:54 04/26/18 18:00 04/26/18 18:15 Temperature Pulse Rate 120 H 120 H Respiratory Rate 24 27 H Blood Pressure 106/58 L 94/57 L Pulse Oximetry 96 96 94 L 04/26/18 18:30 04/26/18 18:45 04/26/18 19:00 Temperature Pulse Rate 174 H 109 H 101 H Respiratory Rate 42 H 24 21 Blood Pressure 97/60 L 104/59 L 101/51 L Pulse Oximetry 92 L 96 96 04/26/18 19:15 04/26/18 19:30 04/26/18 19:45 Temperature Pulse Rate 106 H 180 H 114 H Respiratory Rate 18 34 H 18 Blood Pressure 110/71 112/67 115/59 L Pulse Oximetry 96 96 97 04/26/18 20:00 04/26/18 20:15 04/26/18 20:22 Temperature 97.3 F L Pulse Rate 104 H 107 H 107 H Respiratory Rate 16 21 17 Blood Pressure 119/56 L 129/66 Pulse Oximetry 97 96 04/26/18 20:30 04/26/18 20:45 04/26/18 21:00 Temperature Pulse Rate 99 H 103 H 105 H Respiratory Rate 19 16 26 H Blood Pressure 123/58 L 122/59 L 116/58 L Pulse Oximetry 97 95 96 04/26/18 21:15 04/26/18 21:30 04/26/18 21:46 Temperature Pulse Rate 111 H 97 H 55 L Respiratory Rate 21 17 24 Blood Pressure 110/68 108/58 L 102/56 L Pulse Oximetry 95 95 97 04/26/18 22:00 04/26/18 22:15 04/26/18 22:30 Temperature Pulse Rate 56 L 56 L 57 L Respiratory Rate 16 26 H 22 Blood Pressure 105/53 L 106/57 L 108/58 L Pulse Oximetry 95 97 96 04/26/18 22:45 04/26/18 23:00 04/26/18 23:15 Temperature Pulse Rate 57 L 60 58 L Respiratory Rate 19 22 15 Blood Pressure 113/55 L 120/59 L 116/58 L Pulse Oximetry 98 98 98 04/26/18 23:30 04/26/18 23:45 04/27/18 00:00 Temperature 97.6 F Pulse Rate 56 L 58 L 59 L Respiratory Rate 18 20 20 Blood Pressure 110/57 L 123/59 L 124/57 L Pulse Oximetry 98 98 97 04/27/18 00:15 04/27/18 00:30 04/27/18 00:45 Temperature Pulse Rate 57 L 58 L 55 L Respiratory Rate 19 22 18 Blood Pressure 117/56 L 122/58 L 121/59 L Pulse Oximetry 97 97 98 04/27/18 01:00 04/27/18 01:15 04/27/18 01:30 Temperature Pulse Rate 55 L 56 L 55 L Respiratory Rate 18 20 17 Blood Pressure 120/55 L 122/59 L 124/61 Pulse Oximetry 97 98 97 04/27/18 01:40 04/27/18 01:45 04/27/18 02:00 Temperature Pulse Rate 52 L 53 L 54 L Respiratory Rate 17 14 15 Blood Pressure 121/60 120/58 L Pulse Oximetry 98 97 04/27/18 02:15 04/27/18 02:30 04/27/18 02:45 Temperature Pulse Rate 53 L 54 L 53 L Respiratory Rate 15 20 16 Blood Pressure 131/59 L 132/61 121/58 L Pulse Oximetry 95 96 97 04/27/18 03:00 04/27/18 03:15 04/27/18 03:30 Temperature Pulse Rate 55 L 56 L 54 L Respiratory Rate 13 15 15 Blood Pressure 123/63 145/66 H 134/66 Pulse Oximetry 97 97 97 04/27/18 03:45 04/27/18 04:00 04/27/18 04:15 Temperature 97.9 F Pulse Rate 54 L 55 L 55 L Respiratory Rate 14 17 15 Blood Pressure 137/64 135/68 137/71 Pulse Oximetry 97 98 98 04/27/18 04:30 04/27/18 04:45 04/27/18 05:00 Temperature Pulse Rate 56 L 54 L 55 L Respiratory Rate 19 15 18 Blood Pressure 153/67 H 137/65 130/62 Pulse Oximetry 97 95 97 04/27/18 05:16 04/27/18 05:30 04/27/18 05:45 Temperature Pulse Rate 56 L 53 L 55 L Respiratory Rate 15 15 18 Blood Pressure 149/70 H 139/67 141/71 H Pulse Oximetry 98 98 98 04/27/18 06:00 04/27/18 06:23 04/27/18 06:30 Temperature Pulse Rate 55 L 63 59 L Respiratory Rate 17 24 25 H Blood Pressure 145/71 H 157/72 H 145/73 H Pulse Oximetry 97 89 L 98 04/27/18 06:45 04/27/18 07:00 04/27/18 07:16 Temperature Pulse Rate 54 L 66 58 L Respiratory Rate 19 17 23 Blood Pressure 140/66 137/69 153/70 H Pulse Oximetry 98 98 98 04/27/18 07:30 04/27/18 07:45 04/27/18 08:00 Temperature Pulse Rate 57 L 57 L 56 L Respiratory Rate 22 21 17 Blood Pressure 163/68 H 147/72 H 142/67 H Pulse Oximetry 98 98 97 04/27/18 08:15 04/27/18 08:30 04/27/18 08:40 Temperature Pulse Rate 58 L 55 L 57 L Respiratory Rate 19 20 26 H Blood Pressure 150/67 H 146/64 H Pulse Oximetry 97 97 97 04/27/18 08:45 04/27/18 09:00 04/27/18 09:01 Temperature Pulse Rate 57 L 64 63 Respiratory Rate 19 Blood Pressure 139/63 126/62 Pulse Oximetry 99 98 99 04/27/18 09:15 04/27/18 09:30 04/27/18 09:45 Temperature Pulse Rate 79 71 68 Respiratory Rate Blood Pressure 115/73 129/62 133/63 Pulse Oximetry 91 L 97 96 04/27/18 10:00 Temperature Pulse Rate 98 H Respiratory Rate Blood Pressure 129/60 Pulse Oximetry 97 Intake & Output 04/26/18 04/27/18 04/27/18 18:59 06:59 18:59 Intake Total 3500 / 3500 2630 / 2630 50 / 50 Output Total 1750 / 1750 1335 / 1335 Balance 1750 / 1750 1295 / 1295 50 / 50 Intake: IV 3500 / 3500 2450 / 2450 50 / 50 Cordarone Inj 450 MG In D5W Inj 250 / 250 241 ML @ 1 MG/MIN 33.33 mls/hr IV.CONT TITRATE PRN Rx#: [id number] NS Inj 1,000 ML @ 154 mls/hr IV 1000 / 1000 1999 .CONT .Q6H30M VIJAYA Rx#:[id number] Pitressin Inj 40 UNIT In NS Inj 100 / 100 98 ML @ 0.04 UNITS/MIN 6 mls/ hr IV.CONT CONT VIJAYA Rx#: [id number] Cordarone Inj 150 MG In D5W Inj 100 / 100 97 ML @ 100 mls/hr IV.SIG ONCE ONE Rx#:[id number] Zosyn 2.25 GM Premix 50 ML @ 150 / 150 100 / 100 50 / 50 100 mls/hr IV.SIG Q6H VIJAYA Rx#: [id number] NS Inj 1,000 ML @ Wide Open IV. 1999 SIG BOLUS VIJAYA Rx#:[id number] Vancomycin Inj 1,000 MG In NS 250 / 250 Inj 250 ML @ 200 mls/hr IV.SIG ONCE ONE Rx#:[id number] Oral 180 / 180 Output: Urine Amount (Catheter) 1650 / 1650 1125 / 1125 Indwelling Temp Sensing 1650 / 1650 1125 / 1125 Catheter Stool Amount (Stoma) 100 / 100 210 / 210 Pre-Hospital: Left Lower 100 / 100 210 / 210 Abdomen Other: Date of Last Bowel Movement 04/26/18 04/26/18 04/27/18 04/25/18 19:00 Blood - Peripheral Aerobic Blood Culture - Preliminary No growth in 2 days 04/25/18 19:00 Blood - Peripheral Anaerobic Blood Culture - Preliminary No growth in 2 days 04/27/18 10:35 Blood - Peripheral Aerobic Blood Culture - Pending 04/27/18 10:35 Blood - Peripheral Anaerobic Blood Culture - Pending 04/25/18 19:25 Catheterized Urine Urine Culture - Preliminary gram negative rods 04/25/18 19:05 Blood - Peripheral Aerobic Blood Culture - Preliminary gram negative rods 04/25/18 19:05 Blood - Peripheral Anaerobic Blood Culture - Preliminary gram negative rods 04/27/18 05:11 Blood - Peripheral Aerobic Blood Culture - Pending 04/27/18 05:11 Blood - Peripheral Anaerobic Blood Culture - Pending Lab - Hematology Results 04/25/18 04/27/18 19:00 05:11 WBC 26.2 H 24.3 H RBC 5.22 4.66 Hgb 10.1 L 9.0 L Hct 32.5 L 28.8 L MCV 62.1 L 61.8 L MCH 19.2 L 19.2 L MCHC 31.0 L 31.2 L RDW 17.8 H 18.7 H Plt Count 66 L 61 L MPV 9.1 8.9 Prelim Diff (Auto) Slide review pending Neut % (Auto) 75.4 H Lymph % (Auto) 22.6 [place] % (Auto) 1.7 Eos % (Auto) 0.2 Baso % (Auto) 0.1 Neut # (Auto) 19.8 H Lymph # (Auto) 5.9 H [place] # (Auto) 0.5 Eos # (Auto) 0.1 Baso # (Auto) 0.0 WBC Differential Manual diff final Seg Neuts % (Manual) 47 Band Neuts % (Manual) 25 H Lymphocytes % (Manual) 22 Monocytes % (Manual) 3 Metamyelocytes % (Man) 3 H Abs Neuts (Manual) 19.7 H Differential Comment . Platelet Estimate Low L Platelet Morphology Enlarged H Basophilic Stippling Moderate H Target Cells 1+ H Ovalocytes 1+ H Lab - Chemistry Results 04/25/18 04/25/18 04/25/18 19:00 19:00 19:05 Sodium 131 L Potassium 5.4 H Chloride 95 L Carbon Dioxide 21.9 Anion Gap 14 BUN 112 H Creatinine 4.03 H Estimated GFR 14 L POC Glucose Random Glucose 313 H Lactic Acid 3.0 H Calcium 8.1 L Total Bilirubin 1.0 AST 16 ALT 21 Alkaline Phosphatase 102 Troponin I 0.06 H C-Reactive Protein B-Natriuretic Peptide 445 H Total Protein 5.9 L Albumin 2.1 L Carcinoembryonic Ag 04/26/18 04/26/18 04/26/18 04:41 08:06 09:47 Sodium Potassium Chloride Carbon Dioxide Anion Gap BUN 119 H Creatinine 3.15 H Estimated GFR 19 L POC Glucose 192 H Random Glucose Lactic Acid 1.3 Calcium Total Bilirubin AST ALT Alkaline Phosphatase Troponin I C-Reactive Protein B-Natriuretic Peptide Total Protein Albumin Carcinoembryonic Ag 04/26/18 04/26/18 04/26/18 12:03 12:49 16:53 Sodium Potassium Chloride Carbon Dioxide Anion Gap BUN Creatinine Estimated GFR POC Glucose 294 H 366 H Random Glucose Lactic Acid Calcium Total Bilirubin AST ALT Alkaline Phosphatase Troponin I C-Reactive Protein 22.20 H B-Natriuretic Peptide Total Protein Albumin Carcinoembryonic Ag 2.6 04/26/18 04/27/18 04/27/18 20:54 02:37 05:11 Sodium 139 Potassium 4.5 D Chloride 106 D Carbon Dioxide 24.1 Anion Gap 9 BUN 91 H Creatinine 2.61 H Estimated GFR 24 L POC Glucose 363 H 270 H Random Glucose 231 H Lactic Acid Calcium 7.9 L Total Bilirubin 0.4 AST 20 ALT 20 Alkaline Phosphatase 82 Troponin I C-Reactive Protein B-Natriuretic Peptide Total Protein 5.4 L Albumin 1.9 L Carcinoembryonic Ag 04/27/18 04/27/18 07:56 11:37 Sodium Potassium Chloride Carbon Dioxide Anion Gap BUN Creatinine Estimated GFR POC Glucose 243 H 281 H Random Glucose Lactic Acid Calcium Total Bilirubin AST ALT Alkaline Phosphatase Troponin I C-Reactive Protein B-Natriuretic Peptide Total Protein Albumin Carcinoembryonic Ag Imaging: ITS Impressions Chest X-Ray 04/27/18 06:00 CONCLUSION: Mild consolidation and small effusions at each base, slightly worse in the interim. Physical Exam: GENERAL: Obese well-developed, not in acute distress SKIN: Cool and dry, no generalized rash HEAD: Atraumatic. Normocephalic. No temporal or scalp tenderness. EYES: Pupils equal round and reactive. Scleral icterus. No injection or drainage. No petechia ENT: Nothing abnormal detected NECK: Trachea midline. Supple, nontender, no meningeal signs. CARDIOVASCULAR: HS audible. RESPIRATORY: Clear to auscultation bilaterally. GASTROINTESTINAL: Abdomen soft nontender. MUSCULOSKELETAL: Extremities without clubbing, cyanosis. NEUROLOGICAL: Alert oriented 3. Nonfocal. Psych cooperative IV line sites ok. Assessment and Plan - Plan Septic shock Gram-negative bacteremia, E.coli - repeat blood clx NGTD E.coli UTI Bibasilar infiltrates atelectasis versus possible aspiration pneumonia Likely source . Given history of colon cancer would be concerned about GI as a possible source. COPD Congestive heart failure Diabetes mellitus poorly controlled Acute renal failure likely sepsis but also has a history of BPH. Acute metabolic encephalopathy likely secondary to sepsis no known prior history of dementia. Thrombocytopenia likely secondary to sepsis. Recommendations Continue Zosyn IV Follow cultures follow clinically.
[2018-04-28] MEDS: Piperacil/Tazo 2.25 GM Premix 50 ML IV.SIG SCH ×3 (02:00→13:16)
[2018-04-28] MEDS: Chlorhexidine Gluconate 2% 1 Pack (2 Cloths) TOPICAL SCH (05:04)
[2018-04-28] MEDS ORDERED: Metoprolol Inj 5 MG/5 ML Vial IV.PUSH SCH (05:30)
[2018-04-28] MEDS: Metoprolol Inj 5 MG/5 ML Vial IV.PUSH SCH ×4 (05:35→09:22)
[2018-04-28] MEDS: Hydrocortisone Sod Succinate 100 MG Vial IV.PUSH SCH ×2 (05:37→13:16)
--- NOTE | 2018-04-28 08:29 | P.PN ---
Subjective Interval history: 82-year-old male presents initially for an evaluation of abnormal labs at his assisted facility. He was found to have a UTI and abnormal labs. Apparently his BUN and creatinine have been increased with his BUN being in the 120s and his creatinine in the 4s. His white count is critically elevated to 25 with severe bandemia, patient is also borderline hypotensive and therefore he is admitted to ICU with diagnosis of severe sepsis. Patient has significant history of CHF severely reduced ejection fracture. Patient himself is not a good historian cannot provide much history. No signs of trauma. SUBJ 04/26/18: Patient remains critically ill hypotensive encephalopathic. Currently on Levophed at 4 mcg/min despite 1 L fluid bolus. Blood cultures growing gram-negative rods. I will place central line and start vasopressin to attempt to wean off Levophed given atrial fibrillation. Currently patient is in atrial fibrillation with RVR will start amiodarone 150 mg bolus and infusion. Hold p.o. amiodarone 04/27/18: Patient's blood pressure is normal now will DC vasopressin. WBC count slightly improved to 24.3 BUN/creatinine improved 91/2.6. Will start back on p.o. amiodarone and weaned to DC amiodarone infusion. Blood cultures positive for GNR urine culture positive for GNR appreciate ID input 04/28/18: In bed appears in nad. With edema. Feels tired and says he will need more PT at rehab. No fever ro chills. Not eatign much . no n/v. Did not have a BM. HR into a higher side Physical Exam Vital signs: Vital Signs 04/27/18 08:30 04/27/18 08:40 04/27/18 08:45 Temperature Pulse Rate 55 L 57 L 57 L Respiratory Rate 20 26 H 19 Blood Pressure 146/64 H 139/63 Pulse Oximetry 97 97 99 04/27/18 09:00 04/27/18 09:01 04/27/18 09:15 Temperature Pulse Rate 64 63 79 Respiratory Rate Blood Pressure 126/62 115/73 Pulse Oximetry 98 99 91 L 04/27/18 09:30 04/27/18 09:45 04/27/18 10:00 Temperature Pulse Rate 71 68 98 H Respiratory Rate Blood Pressure 129/62 133/63 129/60 Pulse Oximetry 97 96 97 04/27/18 10:15 04/27/18 10:30 04/27/18 10:45 Temperature Pulse Rate 71 71 62 Respiratory Rate Blood Pressure 121/58 L 121/62 117/59 L Pulse Oximetry 97 95 97 04/27/18 11:00 04/27/18 11:15 04/27/18 11:30 Temperature Pulse Rate 58 L 57 L Respiratory Rate 25 H 19 19 Blood Pressure 117/59 L 136/65 134/64 Pulse Oximetry 96 95 97 04/27/18 11:45 04/27/18 12:00 04/27/18 12:22 Temperature 97.9 F Pulse Rate 57 L 57 L 70 Respiratory Rate 17 18 25 H Blood Pressure 134/61 139/66 148/70 H Pulse Oximetry 97 98 97 04/27/18 12:30 04/27/18 12:45 04/27/18 13:00 Temperature Pulse Rate 75 64 65 Respiratory Rate Blood Pressure 166/74 H 130/60 144/67 H Pulse Oximetry 97 96 97 04/27/18 13:15 04/27/18 13:31 04/27/18 13:45 Temperature Pulse Rate 62 163 H 64 Respiratory Rate 30 H 30 H 27 H Blood Pressure 134/63 128/59 L 134/64 Pulse Oximetry 95 94 L 97 04/27/18 14:00 04/27/18 14:15 04/27/18 14:30 Temperature Pulse Rate 63 64 61 Respiratory Rate 21 17 Blood Pressure 138/68 147/77 H 147/71 H Pulse Oximetry 95 95 96 04/27/18 14:45 04/27/18 15:00 04/27/18 15:15 Temperature Pulse Rate 60 61 Respiratory Rate 17 21 Blood Pressure 145/67 H 153/67 H 129/65 Pulse Oximetry 95 96 95 04/27/18 15:30 04/27/18 15:45 04/27/18 16:00 Temperature Pulse Rate 60 61 61 Respiratory Rate 28 H 21 16 Blood Pressure 135/69 136/70 138/65 Pulse Oximetry 96 95 95 04/27/18 16:15 04/27/18 16:30 04/27/18 16:45 Temperature Pulse Rate 66 62 61 Respiratory Rate 23 16 16 Blood Pressure 155/67 H 144/68 H 157/68 H Pulse Oximetry 95 95 97 04/27/18 17:00 04/27/18 17:15 04/27/18 17:30 Temperature Pulse Rate 60 60 62 Respiratory Rate 14 15 15 Blood Pressure 162/74 H 160/75 H 158/84 H Pulse Oximetry 97 97 97 04/27/18 17:45 04/27/18 18:00 04/27/18 18:16 Temperature Pulse Rate 61 61 63 Respiratory Rate 23 21 24 Blood Pressure 165/80 H 164/78 H 164/77 H Pulse Oximetry 98 97 98 04/27/18 20:00 04/27/18 20:07 04/27/18 20:08 Temperature Pulse Rate 70 69 Respiratory Rate 20 Blood Pressure Pulse Oximetry 97 04/27/18 20:30 04/27/18 21:00 04/27/18 22:00 Temperature 98.7 F Pulse Rate 95 H 69 68 Respiratory Rate 28 H 30 H 25 H Blood Pressure 155/77 H 143/64 H 142/64 H Pulse Oximetry 96 93 L 94 L 04/27/18 23:00 04/28/18 00:00 04/28/18 01:00 Temperature 98 F Pulse Rate 67 66 86 Respiratory Rate 24 15 39 H Blood Pressure 139/65 144/60 H 174/76 H Pulse Oximetry 94 L 93 L 94 L 04/28/18 02:00 04/28/18 03:00 04/28/18 04:00 Temperature Pulse Rate 66 66 71 Respiratory Rate 24 14 22 Blood Pressure 156/72 H 176/77 H 174/78 H Pulse Oximetry 92 L 94 L 96 04/28/18 05:00 04/28/18 06:00 04/28/18 08:05 Temperature Pulse Rate 133 H 113 H 125 H Respiratory Rate 17 16 24 Blood Pressure 153/90 H 144/94 H Pulse Oximetry 94 L 93 L 94 L Intake & Output 04/27/18 04/28/18 04/28/18 18:59 06:59 18:59 Intake Total 2160 / 2160 600 / 600 Output Total 950 / 950 900 / 900 Balance 1210 / 1210 -300 / -300 Weight 106.5 kg Intake: IV 1200 / 1200 100 / 100 Cordarone Inj 450 MG In D5W Inj 150 / 150 241 ML @ 1 MG/MIN 33.33 mls/hr IV.CONT TITRATE PRN Rx#: [id number] NS Inj 1,000 ML @ 50 mls/hr IV. 950 / 950 CONT .Q20H VIJAYA Rx#:[id number] Zosyn 2.25 GM Premix 50 ML @ 100 / 100 100 / 100 100 mls/hr IV.SIG Q6H VIJAYA Rx#: [id number] Oral 960 / 960 500 / 500 Output: Urine Amount (Catheter) 950 / 950 900 / 900 Indwelling Temp Sensing 950 / 950 900 / 900 Catheter Other: Date of Last Bowel Movement 04/27/18 04/27/18 Narrative: GENERAL: Elderly male in NAD. CARDIOVASCULAR: Irregularly irregular rate and rhythm, without murmurs, gallops , or rubs. RESPIRATORY: Scattered rhonchi. No wheezing. No accessory muscle use. GASTROINTESTINAL: Abdomen soft, non-tender, nondistended. MUSCULOSKELETAL: No cyanosis, or edema. NEURO: Patient is awake alert. He is oriented to person sometimes to place. Moves all 4 extremities no focal deficits. - Urinary Catheter Management Indwelling Temp Sensing Catheter Cath placed during this visit: yes Reason for continuing: Chronic Urinary Retention Insertion date: 04/25/18 Insertion time: 20:00 Results - Labs CBC & Chem 7: 04/27/18 05:11 04/27/18 05:11 Laboratory Results - last 24 hr 04/27/18 04/27/18 04/27/18 11:37 17:02 20:18 POC Glucose 281 H 226 H 127 H Microbiology 04/25/18 19:25 Catheterized Urine Urine Culture - Final Escherichia coli 04/25/18 19:00 Blood - Peripheral Aerobic Blood Culture - Preliminary No growth in 2 days 04/25/18 19:00 Blood - Peripheral Anaerobic Blood Culture - Preliminary No growth in 2 days 04/25/18 19:05 Blood - Peripheral Aerobic Blood Culture - Preliminary gram negative rods 04/25/18 19:05 Blood - Peripheral Anaerobic Blood Culture - Preliminary gram negative rods Assessment and Plan - Plan Septic shock Gram-negative bacteremia UTI -Broad-spectrum antibiotics with Zosyn. Vancomycin DC'd by ID 04/26 -Follow-up cultures and de-escalate per sensitivity -IV fluid hydration, reduce maintenance fluid rate to 50 mL/h -Discontinue vasopressin Atrial fibrillation with RVR History of hypertension -Resume po amiodarone, wean to DC amiodarone infusion -Check limited echo -Continue Eliquis -Hold all antihypertensives due to septic shock -Patient is on chronic prednisone which was placed on hold and started stress dose steroids 100 mg hydrocortisone IV every 8 hours on 04/26. Taper down Acute kidney failure -BUN/creatinine improving with aggressive hydration -CMP in a.m., continue to use IV fluid to 50 mL/h COPD -DuoNeb scheduled and as needed -Hold prednisone. IV hydrocortisone also above -Empiric antibiotics with Zosyn Diabetes mellitus -Hold metformin while in the ICU -Insulin sliding scale BPH -Flomax Proph: GI and DVT prophylaxis -IV famotidine and Eliquis Discussed with the patient, nurse.
[2018-04-28] MEDS ORDERED: Amiodarone 200 MG Tablet PO SCH ×3 (09:00→21:00)
[2018-04-28] MEDS: Senna/Docusate Sodium 8.6/50 MG Tablet PO SCH ×2 (09:07→20:50)
[2018-04-28] MEDS: Insulin Detemir Inj 1,000 UNIT/10 ML Vial SQ SCH ×2 (09:08→20:51)
[2018-04-28] MEDS: Famotidine PF Inj 20 MG/2 ML Vial IV.PUSH SCH ×2 (09:08→20:49)
[2018-04-28] MEDS: Sod Chloride 0.9% Inj 1,000 ML IV.CONT SCH (09:09)
[2018-04-28] MEDS: Insulin NovoLOG Aspart Correctional Sugar Inj SQ SCH ×4 (09:09→20:51)
[2018-04-28] MEDS: Lactobacillus Acidophilus/L. Spores Tablet PO SCH ×3 (09:21→18:39)
[2018-04-28] MEDS ORDERED: Labetalol HCl Inj 100 MG/20 ML Vial ONE (11:41)
[2018-04-28] MEDS ORDERED: Carvedilol 12.5 MG Tablet PO SCH (12:45)
[2018-04-28] MEDS ORDERED: Labetalol HCl Inj 100 MG/20 ML Vial IV.PUSH ONE (12:45)
[2018-04-28] MEDS: MethylPREDNISolone Sod Succinate Inj 40 MG/ML Vial IV.PUSH SCH ×2 (16:56→23:19)
--- NOTE | 2018-04-28 16:57 | XR ---
EXAM DATE: 04/28/2018 4:50 PM EDT AGE/SEX: 82 years / Male INDICATIONS: Cough and shortness of breath. CLINICAL DATA: This is the patient's initial encounter. Patient reports that signs and symptoms have been present for 1 day and indicates a pain score of 0/10. MEDICAL/SURGICAL HISTORY: . Carcinoma, colon. Chronic obstructive pulmonary disease. None. [place] [facility] [place]. . FINDINGS: Cardiomegaly and aortic calcification noted. There is patchy right basilar airspace disease noted. Th ere is mild atelectasis at the left base. Cannot exclude small effusions. CONCLUSION: Basilar airspace disease. Electronically signed by: Johnathan Alanis MD 04/28/2018 4:56 PM EDT
[2018-04-28] MEDS ORDERED: Amiodarone Inj 150 MG in Dextrose 5% in Water Inj 97 ML IV.SIG ONE ×2 (19:00)
[2018-04-28] MEDS: Metoprolol Tartrate 50 MG Tablet PO SCH (19:10)
--- NOTE | 2018-04-28 20:37 | MB ---
cc: Pacheco Mendiola DO DATE: 04/28/2018 REASON FOR CONSULTATION: Atrial fibrillation with rapid ventricular response. HISTORY OF PRESENT ILLNESS: Edgard Lima is an 82-year-old male who presented originally due to abnormal labs at [facility]. He was found to have a UTI as well as significant kidney dysfunction. Because of this, he was admitted. While here, he was also found to have bacteremia with Escherichia coli growing in his cultures. During his time in the ICU, he went from sinus rhythm into atrial fibrillation with rapid ventricular response. He was admitted to the ICU and while there this morning, he went into atrial fibrillation with rapid ventricular response. In seeing him, he is currently hemodynamically stable without chest pain or shortness of breath. Review of telemetry shows that this is most likely an atrial flutter with 2:1 block. He has been started on an amiodarone drip and I was consulted for further management. PAST MEDICAL HISTORY: 1. Atrial fibrillation. 2. Arthritis. 3. Chronic obstructive pulmonary disease. 4. Colon cancer. 5. Diabetes. 6. Hyperlipidemia. 7. Hypertension. 8. Polyneuropathy. PAST SURGICAL HISTORY: 1. Colostomy. 2. Nasal sinusotomy. 3. History of ethmoidectomy. 4. Umbilical hernia repair. 5. Unicondylar arthroplasty of the right knee. 6. Cataract surgery of both eyes. ALLERGIES: 1. ASPIRIN. 2. CAFFEINE. MEDICATIONS: 1. Metoprolol tartrate 50 mg b.i.d. 2. Lactobacillus 500 t.i.d. 3. Oxycodone 5 mg every 6 hours as needed. 4. Eliquis 2.5 mg b.i.d. 5. Coreg 25 mg every 12 hours. 6. Lasix 40 mg b.i.d. 7. Hydralazine 100 mg every 8 hours. 8. Levemir 10 units daily. 9. Flomax 0.4 mg daily. 10. Amiodarone 200 mg every 12 hours. 11. Potassium 10 mEq b.i.d. FAMILY HISTORY: Denies premature coronary artery disease or sudden cardiac in the family. SOCIAL HISTORY: The patient previously smoked, but quit in 2009. He denies current alcohol or drug abuse. REVIEW OF SYSTEMS: Fourteen systems are reviewed including osteopathic. Pertinent positives and negatives above, otherwise negative. PHYSICAL EXAMINATION: VITAL SIGNS: Temperature 97.5 with a max of 101, heart rate 132, blood pressure 152/99, respirations 24, pulse oximetry 97% on room air. GENERAL: The patient is in no acute distress, alert and awake. HEENT: Extraocular muscles intact. Mucous membranes moist. NECK: Supple. No JVD at 45 degrees. No carotid bruits heard bilaterally. Carotid upstroke is brisk in nature. HEART: Tachycardic, but appears regular. Positive first and second heart sounds with no noted murmurs, gallops or rubs. LUNGS: Decreased breath sounds at bilateral bases, but no overt wheezes, rales or rhonchi. ABDOMEN: Soft, nontender, nondistended. No organomegaly noted. EXTREMITIES: Show trace edema bilaterally. Femoral pulses intact bilaterally. NEUROLOGIC: No focal deficits. SKIN: Warm, dry and intact. OSTEOPATHIC: No kyphoscoliosis, lordosis or paraspinal tender points. LABORATORY DATA: Hemoglobin 9.0, hematocrit 28.8, platelets 61. Potassium 4.5, BUN 91, creatinine 2.61. Electrocardiogram (04/28/2018 at 1323): Atrial flutter with 2:1 block, borderline left axis deviation, nonspecific ST-T wave changes. IMPRESSION: 1. Urinary tract infection. 2. Gram-negative bacteremia. 3. Atrial flutter with rapid ventricular response. 4. History of hypertension. 5. Acute kidney injury. 6. Thrombocytopenia. 7. Chronic obstructive pulmonary disease. 8. Diabetes mellitus. RECOMMENDATIONS: 1. Mr. Lima presented with infection and bacteremia and this will be treated by infectious disease and the primary care team. 2. He has gone into atrial flutter with a rapid response and this is most likely due to his overall systemic illness and increased sympathetic. 3. I agree with placing him on his amiodarone drip and we will load him with 150 mg IV. 4. For some reason, he is on carvedilol and Metoprolol, we will plan on stopping the carvedilol and continue him on metoprolol, as it has better chronotropic response. 6. Due to his significant thrombocytopenia, his platelets will need to be watched especially on Eliquis 7. Thrombocytopenia may be a reaction to his overall sepsis. 8. Further recommendations will be made based on the hospital course. Thank you for allowing me to see Edgard Lima. If there are any questions, please do not hesitate to call. DO YOLANDA Ko/emmett , 06:28 PM , 06:41 PM
[2018-04-28] MEDS ORDERED: Metoprolol Tartrate 50 MG Tablet PO SCH (21:00)
[2018-04-29 04:14] LABS: Baso % (Auto) 0.2 % (0.0-2.0); Eos % (Auto) 0.2 % (0.0-4.0); Hematocrit 30.9 % (39.0-51.0); Hemoglobin 9.8 gm/dL (13.0-17.0); Lymph # (Auto) 6.8 th/mm3 (1.0-4.8); Lymph % (Auto) 49.6 % (9.0-44.0); Mean Corpuscular HGB Conc 31.7 % (32.0-36.0); Mean Corpuscular Hemoglobin 19.6 pg (27.0-34.0); Mean Platelet Volume 8.7 fL (7.0-11.0); Mono # (Auto) 0.1 th/mm3 (0.0-0.9); Mono % (Auto) 0.8 % (0.0-8.0); Neut # (Auto) 6.7 th/mm3 (1.8-7.7); Neut % (Auto) 49.2 % (16.0-70.0); Platelet Count 67 th/mm3 (150-450); Red Blood Count 4.99 mil/mm3 (4.50-5.90); Red Cell Distribution Width 19.4 % (11.6-17.2); White Blood Count 13.6 th/mm3 (4.0-11.0)
[2018-04-29] MEDS: Chlorhexidine Gluconate 2% 1 Pack (2 Cloths) TOPICAL SCH (04:55)
[2018-04-29 05:17] LABS: Alanine Aminotransferase 23 U/L (12-78); Albumin 2.1 g/dL (3.4-5.0); Alkaline Phosphatase 75 U/L (45-117); Anion Gap 9 meq/L (5-15); Aspartate Aminotransferase 11 U/L (15-37); Blood Urea Nitrogen 72 mg/dL (7-18); Carbon Dioxide 24.5 meq/L (21.0-32.0); Chloride 109 meq/L (98-107); Glomerular Filtration Rate 26 mL/min (>89); Glucose,Random 217 mg/dL (74-106); Magnesium 2.2 mg/dL (1.5-2.5); Sodium 142 meq/L (136-145); Total Protein 5.6 g/dL (6.4-8.2)
[2018-04-29] MEDS: MethylPREDNISolone Sod Succinate Inj 40 MG/ML Vial IV.PUSH SCH ×3 (05:19→22:42)
[2018-04-29] MEDS: Metoprolol Tartrate 50 MG Tablet PO SCH ×3 (08:42→17:04)
[2018-04-29] MEDS: Insulin NovoLOG Aspart Correctional Sugar Inj SQ SCH ×4 (08:42→22:44)
[2018-04-29] MEDS: Lactobacillus Acidophilus/L. Spores Tablet PO SCH ×3 (08:42→17:04)
[2018-04-29] MEDS: Famotidine PF Inj 20 MG/2 ML Vial IV.PUSH SCH ×2 (08:42→22:41)
[2018-04-29] MEDS: Insulin Detemir Inj 1,000 UNIT/10 ML Vial SQ SCH ×2 (08:43→22:44)
[2018-04-29] MEDS: Senna/Docusate Sodium 8.6/50 MG Tablet PO SCH ×2 (08:43→22:42)
--- NOTE | 2018-04-29 09:57 | CT ---
EXAM DATE: 04/29/2018 9:42 AM EDT AGE/SEX: 82 years / Male INDICATIONS: Altered mental status. CLINICAL DATA: This is the patient's initial encounter. Patient reports that signs and symptoms have been present for 1 day and indicates a pain score of 0/10. MEDICAL/SURGICAL HISTORY: Carcinoma, colon. Chronic obstructive pulmonary disease. Diabetes. . et hmoidectomy RADIATION DOSE: 36.28 CTDI (mGy) [place] [facility] [place]. . TECHNIQUE: CT of the head without contrast. Using automated exposure control and adjustment of the mA and/or kV according to patient size, radiation dose was kept as low as reasonably achievable to ob tain optimal diagnostic quality images. DICOM format image data is available electronically for revi ew and comparison. FINDINGS: There is mild diffuse prominence of the CSF spaces, ventricles and cisterns, which is stable. Mild pa tchy periventricular white matter disease again noted. No signs of intracranial hemorrhage, acute inf arct, or mass. No fractures are seen. CONCLUSION: 1. Stable appearance of the brain. . Electronically signed by: Johnathan Alanis MD 04/29/2018 9:56 AM EDT
[2018-04-29 10:56] LABS: Lymphocytes 48 % (9-44); Monocytes 1 % (0-8); Ovalocytes 1+; Tallied Nucleated RBC 1 (0-0)
[2018-04-29 10:58] LABS: Platelet Morphology Normal (Normal)
--- NOTE | 2018-04-29 13:11 | P.PNCA ---
Subjective Interval history: No events overnight Converted to sinus rhythm Physical Exam Vital signs: Vital Signs 04/28/18 13:11 04/28/18 14:00 04/28/18 15:00 Temperature 97.5 F L Pulse Rate 136 H 138 H 135 H Respiratory Rate 45 H 34 H 24 Blood Pressure 108/68 125/75 132/79 Pulse Oximetry 96 96 95 04/28/18 16:00 04/28/18 16:05 04/28/18 19:00 Temperature Pulse Rate 132 H 136 H 131 H Respiratory Rate 26 H 24 Blood Pressure 152/99 H Pulse Oximetry 97 97 04/28/18 20:00 04/28/18 20:08 04/28/18 22:00 Temperature 97.6 F Pulse Rate 63 62 60 Respiratory Rate 24 22 24 Blood Pressure 136/80 169/75 H Pulse Oximetry 99 98 97 04/28/18 23:52 04/29/18 00:00 04/29/18 03:44 Temperature 97.5 F L Pulse Rate 58 L 60 Respiratory Rate 24 24 Blood Pressure 179/84 H Pulse Oximetry 94 L 98 04/29/18 04:00 04/29/18 07:32 04/29/18 08:00 Temperature 97.7 F 96.9 F L Pulse Rate 55 L 59 L 58 L Respiratory Rate 24 24 18 Blood Pressure 170/74 H 188/81 H Pulse Oximetry 95 98 98 04/29/18 11:36 04/29/18 12:00 Temperature 97.5 F L Pulse Rate 60 54 L Respiratory Rate 22 18 Blood Pressure 158/74 H Pulse Oximetry 97 Intake & Output 04/28/18 04/29/18 04/29/18 18:59 06:59 18:59 Intake Total 2850 / 2850 850 / 850 350 / 350 Output Total 2600 / 2600 1750 / 1750 Balance 250 / 250 -900 / -900 350 / 350 Weight 107.5 kg Intake: IV 1050 / 1050 250 / 250 350 / 350 Cordarone Inj 450 MG In D5W Inj 250 / 250 250 / 250 241 ML @ 1 MG/MIN 33.33 mls/hr IV.CONT TITRATE PRN Rx#: [id number] NS Inj 1,000 ML @ 50 mls/hr IV. 1000 / 1000 CONT .Q20H VIJAYA Rx#:[id number] Zosyn 2.25 GM Premix 50 ML @ 50 / 50 100 mls/hr IV.SIG Q6H VIJAYA Rx#: [id number] Rocephin Inj 2,000 MG In NS Inj 100 / 100 100 ML @ 200 mls/hr IV.SIG Q24H VIJAYA Rx#:[id number] Oral 1800 / 1800 600 / 600 Output: Urine 1800 / 1800 Stool 800 / 800 Urine Amount (Catheter) 1750 / 1750 Indwelling Temp Sensing 1750 / 1750 Catheter Other: Date of Last Bowel Movement 04/28/18 04/28/18 04/29/18 Narrative: GENERAL: NAD, AAOx3 SKIN: Warm and dry. HEAD: Atraumatic. Normocephalic. EYES: Pupils equal and round. No scleral icterus. No injection or drainage. ENT: No nasal bleeding or discharge. Mucous membranes pink and moist. NECK: Trachea midline. No JVD. CARDIOVASCULAR: Regular rate and rhythm. RESPIRATORY: No accessory muscle use. Decreased bilaterally. GASTROINTESTINAL: Abdomen soft, non-tender, nondistended. Hepatic and splenic margins not palpable. MUSCULOSKELETAL: Trace edema NEUROLOGICAL: Awake and alert. No obvious cranial nerve deficits. Motor grossly within normal limits. Five out of 5 muscle strength in the arms and legs. Normal speech. PSYCHIATRIC: Appropriate mood and affect; insight and judgment normal. - Urinary Catheter Management Indwelling Temp Sensing Catheter Cath placed during this visit: yes Reason for continuing: Chronic Urinary Retention Insertion date: 04/25/18 Insertion time: 20:00 Assessment and Plan - Assessment (1) Afib Code(s): I48.91 - Unspecified atrial fibrillation Status: Acute (2) Thrombocytopenia Code(s): D69.6 - Thrombocytopenia, unspecified Status: Acute (3) Bacteremia Code(s): R78.81 - Bacteremia Status: Acute (4) Obesity Code(s): E66.9 - Obesity, unspecified Status: Acute (5) Renal insufficiency Code(s): N28.9 - Disorder of kidney and ureter, unspecified Status: Acute (6) Sepsis Code(s): A41.9 - Sepsis, unspecified organism Status: Acute (7) Acute UTI Code(s): N39.0 - Urinary tract infection, site not specified Status: Acute (8) CHF (congestive heart failure) Code(s): I50.9 - Heart failure, unspecified Status: Acute - Plan 1) AFib/Flutter with RVR Converted to sinus rhythm Will attempt to change Amiodarone drip to PO Most likely potentiated by UTI/Bacteremia 2) Con't on Metoprolol Coreg stopped, should not be on both 3) Thrombocytopenia May be due to sepsis Will continue on Eliquis, but if further drop in Plts Eliquis will need to be stopped 4) Wants to go home Explained he was still on Amiodarone drip and this needs to be changed to PO , need to make sure he's stable on PO meds before discharge (6) Sepsis Qualifiers: Sepsis type: sepsis due to unspecified organism Qualified Code(s): A41.9 - Sepsis, unspecified organism
[2018-04-29] MEDS: Amiodarone 200 MG Tablet PO SCH ×2 (14:19→22:43)
--- NOTE | 2018-04-29 14:22 | P.PN ---
Subjective Interval history: 82-year-old male presents initially for an evaluation of abnormal labs at his [facility] facility. He was found to have a UTI and abnormal labs. Apparently his BUN and creatinine have been increased with his BUN being in the 120s and his creatinine in the 4s. His white count is critically elevated to 25 with severe bandemia, patient is also borderline hypotensive and therefore he is admitted to ICU with diagnosis of severe sepsis. Patient has significant history of CHF severely reduced ejection fracture. Patient himself is not a good historian cannot provide much history. No signs of trauma. SUBJ 04/26/18: Patient remains critically ill hypotensive encephalopathic. Currently on Levophed at 4 mcg/min despite 1 L fluid bolus. Blood cultures growing gram-negative rods. I will place central line and start vasopressin to attempt to wean off Levophed given atrial fibrillation. Currently patient is in atrial fibrillation with RVR will start amiodarone 150 mg bolus and infusion. Hold p.o. amiodarone 04/27/18: Patient's blood pressure is normal now will DC vasopressin. WBC count slightly improved to 24.3 BUN/creatinine improved 91/2.6. Will start back on p.o. amiodarone and weaned to DC amiodarone infusion. Blood cultures positive for GNR urine culture positive for GNR appreciate ID input 04/28/18: In bed appears in nad. With edema. Feels tired and says he will need more PT at rehab. No fever ro chills. Not eatign much . no n/v. Did not have a BM. HR into a higher side with persistent tachycardia , EKG with afib./flutter. 2D EChO ordered. Started back on amio drip. Consult cardiology discussed with ICU nurse. Hold transfer out of unit as patient on amio drip. wean off amio drip as bill 04/29/18 In nad. Appears in no acute distress. Less sob. No LE edema. Cough some white sputum production. No fever or chills. Feesl much better and wants to do physical therapy to improve and to go back to rehab and eventually home soon. Physical Exam Vital signs: Vital Signs 04/28/18 15:00 04/28/18 16:00 04/28/18 16:05 Temperature 97.5 F L Pulse Rate 135 H 132 H 136 H Respiratory Rate 24 26 H 24 Blood Pressure 132/79 152/99 H Pulse Oximetry 95 97 97 04/28/18 19:00 04/28/18 20:00 04/28/18 20:08 Temperature 97.6 F Pulse Rate 131 H 63 62 Respiratory Rate 24 22 Blood Pressure 136/80 Pulse Oximetry 99 98 04/28/18 22:00 04/28/18 23:52 04/29/18 00:00 Temperature 97.5 F L Pulse Rate 60 58 L Respiratory Rate 24 24 Blood Pressure 169/75 H 179/84 H Pulse Oximetry 97 94 L 04/29/18 03:44 04/29/18 04:00 04/29/18 07:32 Temperature 97.7 F Pulse Rate 60 55 L 59 L Respiratory Rate 24 24 24 Blood Pressure 170/74 H Pulse Oximetry 98 95 98 04/29/18 08:00 04/29/18 11:36 04/29/18 12:00 Temperature 96.9 F L 97.5 F L Pulse Rate 58 L 60 54 L Respiratory Rate 18 22 18 Blood Pressure 188/81 H 158/74 H Pulse Oximetry 98 97 Intake & Output 04/28/18 04/29/18 04/29/18 18:59 06:59 18:59 Intake Total 2850 / 2850 850 / 850 350 / 350 Output Total 2600 / 2600 1750 / 1750 Balance 250 / 250 -900 / -900 350 / 350 Weight 107.5 kg Intake: IV 1050 / 1050 250 / 250 350 / 350 Cordarone Inj 450 MG In D5W Inj 250 / 250 250 / 250 241 ML @ 1 MG/MIN 33.33 mls/hr IV.CONT TITRATE PRN Rx#: [id number] NS Inj 1,000 ML @ 50 mls/hr IV. 1000 / 1000 CONT .Q20H VIJAYA Rx#:[id number] Zosyn 2.25 GM Premix 50 ML @ 50 / 50 100 mls/hr IV.SIG Q6H VIJAYA Rx#: [id number] Rocephin Inj 2,000 MG In NS Inj 100 / 100 100 ML @ 200 mls/hr IV.SIG Q24H VIJAYA Rx#:[id number] Oral 1800 / 1800 600 / 600 Output: Urine 1800 / 1800 Stool 800 / 800 Urine Amount (Catheter) 1750 / 1750 Indwelling Temp Sensing 1750 / 1750 Catheter Other: Date of Last Bowel Movement 04/28/18 04/28/18 04/29/18 Narrative: GENERAL: Elderly male in NAD. CARDIOVASCULAR: Regular rate and rhythm, without murmurs, gallops, or rubs. RESPIRATORY: Scattered rhonchi. No wheezing. No accessory muscle use. GASTROINTESTINAL: Abdomen soft, non-tender, nondistended. MUSCULOSKELETAL: No cyanosis, or edema. NEURO: Patient is awake alert. He is oriented to person sometimes to place. Moves all 4 extremities, no focal deficits. - Urinary Catheter Management Indwelling Temp Sensing Catheter Cath placed during this visit: yes Reason for continuing: Chronic Urinary Retention Insertion date: 04/25/18 Insertion time: 20:00 Results - Labs CBC & Chem 7: 04/29/18 03:23 04/29/18 03:23 Laboratory Results - last 24 hr 04/28/18 04/28/18 04/29/18 16:30 20:00 03:23 WBC RBC Hgb Hct MCV MCH MCHC RDW Plt Count MPV Prelim Diff (Auto) Neut % (Auto) Lymph % (Auto) [place] % (Auto) Eos % (Auto) Baso % (Auto) Neut # (Auto) Lymph # (Auto) [place] # (Auto) Eos # (Auto) Baso # (Auto) WBC Differential Seg Neuts % (Manual) Band Neuts % (Manual) Lymphocytes % (Manual) Monocytes % (Manual) Abs Neuts (Manual) Nucleated RBCs/100 WBC Differential Comment Platelet Estimate Platelet Morphology Ovalocytes Sodium 142 Potassium 4.0 Chloride 109 H Carbon Dioxide 24.5 Anion Gap 9 BUN 72 H Creatinine 2.43 H Estimated GFR 26 L POC Glucose 151 H 337 H Random Glucose 217 H Calcium 8.0 L Magnesium 2.2 Total Bilirubin 0.4 AST 11 L ALT 23 Alkaline Phosphatase 75 Total Protein 5.6 L Albumin 2.1 L 04/29/18 04/29/18 04/29/18 03:23 08:01 11:39 WBC 13.6 H RBC 4.99 Hgb 9.8 L Hct 30.9 L MCV 62.0 L MCH 19.6 L MCHC 31.7 L RDW 19.4 H Plt Count 67 L MPV 8.7 Prelim Diff (Auto) Slide review pending Neut % (Auto) 49.2 Lymph % (Auto) 49.6 H [place] % (Auto) 0.8 Eos % (Auto) 0.2 Baso % (Auto) 0.2 Neut # (Auto) 6.7 Lymph # (Auto) 6.8 H [place] # (Auto) 0.1 Eos # (Auto) 0.0 Baso # (Auto) 0.0 WBC Differential Manual diff final Seg Neuts % (Manual) 43 Band Neuts % (Manual) 8 H Lymphocytes % (Manual) 48 H Monocytes % (Manual) 1 Abs Neuts (Manual) 6.9 Nucleated RBCs/100 WBC 1 H Differential Comment . Platelet Estimate Low L Platelet Morphology Normal Ovalocytes 1+ H Sodium Potassium Chloride Carbon Dioxide Anion Gap BUN Creatinine Estimated GFR POC Glucose 163 H 193 H Random Glucose Calcium Magnesium Total Bilirubin AST ALT Alkaline Phosphatase Total Protein Albumin Microbiology 04/27/18 10:35 Blood - Peripheral Aerobic Blood Culture - Preliminary No growth in 2 days 04/27/18 10:35 Blood - Peripheral Anaerobic Blood Culture - Preliminary No growth in 2 days 04/27/18 05:11 Blood - Peripheral Aerobic Blood Culture - Preliminary No growth in 2 days 04/27/18 05:11 Blood - Peripheral Anaerobic Blood Culture - Preliminary No growth in 2 days 04/25/18 19:00 Blood - Peripheral Aerobic Blood Culture - Preliminary No growth in 4 days 04/25/18 19:00 Blood - Peripheral Anaerobic Blood Culture - Preliminary No growth in 4 days 04/25/18 19:05 Blood - Peripheral Aerobic Blood Culture - Final Escherichia coli 04/25/18 19:05 Blood - Peripheral Anaerobic Blood Culture - Final Escherichia coli - Imaging Impressions Chest X-Ray 04/28/18 00:00 Cardiomegaly and aortic calcification noted. There is patchy right basilar airspace disease noted. There is mild atelectasis at the left base. Cannot exclude small effusions. CONCLUSION: Basilar airspace disease. Head CT 04/29/18 00:00 CONCLUSION: 1. Stable appearance of the brain. . Assessment and Plan - Plan Septic shock Gram-negative bacteremia UTI -Broad-spectrum antibiotics with Zosyn. Vancomycin DC'd by ID 04/26 -Follow-up cultures and de-escalate per sensitivity -IV fluid hydration, reduce maintenance fluid rate to 50 mL/h -Discontinue vasopressin Atrial fibrillation / Flutter with RVR History of hypertension -Resume po amiodarone, wean to DC amiodarone infusion -Check limited echo -Continue Eliquis - On amiodarone drip noted on EKG with persistent afib/flutter with rvr. Wean off amio drip. Increased amio to 200 mg po bid. 2D ECHO pending. Cardio consulted appreciate recs. Sen by Dr Knox appreciate recs. -Patient is on chronic prednisone which was placed on hold and started stress dose steroids 100 mg hydrocortisone IV every 8 hours on 04/26. Tapered down and DC. However patient with wheezing on 04/28 and started on solumedrol tapered to 40 mg IV bid. will continue to taper as tolerated. Acute kidney failure -BUN/creatinine improving with aggressive hydration -CMP in a.m., continue to use IV fluid to 50 mL/h COPD -DuoNeb scheduled and as needed -Hold prednisone. IV hydrocortisone also above -Empiric antibiotics with Zosyn Diabetes mellitus -Hold metformin while in the ICU -Insulin sliding scale BPH -Flomax Proph: GI and DVT prophylaxis -IV famotidine and Eliquis Discussed with the patient, family at bedside, nurse. Transfer to med /surg floor once off amio drip PT to work with the patient
--- NOTE | 2018-04-29 15:48 | ECG ---
Date Performed: 04/28/2018 Time Performed: 13:23:06 PTAGE: 82 years EKG: ATRIAL FLUTTER/TACHYCARDIA WITH RAPID VENTRICULAR RESPONSE BORDERLINE LEFT AXIS DEVIATION N ONSPECIFIC T-WAVE ABNORMALITY ABNORMAL RHYTHM ECG Compared to PREVIOUS TRACING , rhythm has changed from atrial fibrillation to atrial flutter. The min or T wave changes are very little changed from previous. PREVIOUS TRACIN04/25/2018 21.07 DOCTOR: Tod Case Interpretating Date/Time 04/29/2018 15:47:49
[2018-04-30] MEDS: Chlorhexidine Gluconate 2% 1 Pack (2 Cloths) TOPICAL SCH (06:28)
[2018-04-30] MEDS: Insulin NovoLOG Aspart Correctional Sugar Inj SQ SCH ×4 (08:29→22:01)
[2018-04-30] MEDS: Insulin Detemir Inj 1,000 UNIT/10 ML Vial SQ SCH ×2 (08:29→22:00)
[2018-04-30] MEDS: Metoprolol Tartrate 50 MG Tablet PO SCH ×3 (08:30→16:59)
[2018-04-30] MEDS: MethylPREDNISolone Sod Succinate Inj 40 MG/ML Vial IV.PUSH SCH ×2 (08:30→22:04)
[2018-04-30] MEDS: Famotidine PF Inj 20 MG/2 ML Vial IV.PUSH SCH ×2 (08:30→22:04)
[2018-04-30] MEDS: Lactobacillus Acidophilus/L. Spores Tablet PO SCH ×3 (08:30→16:59)
[2018-04-30] MEDS: Senna/Docusate Sodium 8.6/50 MG Tablet PO SCH (08:31)
[2018-04-30] MEDS: Amiodarone 200 MG Tablet PO SCH ×2 (08:31→22:06)
--- NOTE | 2018-04-30 08:48 | P.PN ---
Subjective Interval history: In the bed. HR better controlled. No sob or cp. No cough. Says he did not sleep well last night as too many interruptions. No fever or chills. No n/v/d/c. With urinary retention says he had fajardo in the SN[facility], doesn't have an urology doctor but will like to see one. Patient would like to have voiding trials. Physical Exam Vital signs: Vital Signs 04/29/18 11:36 04/29/18 12:00 04/29/18 16:00 Temperature 97.5 F L 97.8 F Pulse Rate 60 54 L 55 L Respiratory Rate 22 18 19 Blood Pressure 158/74 H 173/76 H Pulse Oximetry 97 98 04/29/18 18:00 04/29/18 19:47 04/29/18 20:00 Temperature 97.3 F L 98 F Pulse Rate 58 L 65 68 Respiratory Rate 20 18 18 Blood Pressure 181/81 H 157/74 H Pulse Oximetry 98 94 L 93 L 04/29/18 23:00 04/30/18 00:00 04/30/18 04:00 Temperature 97.2 F L 97.4 F L Pulse Rate 67 74 70 Respiratory Rate 20 18 18 Blood Pressure 184/86 H 188/84 H Pulse Oximetry 95 95 04/30/18 07:44 04/30/18 08:00 04/30/18 08:14 Temperature 98.3 F Pulse Rate 65 67 65 Respiratory Rate 16 18 Blood Pressure 185/95 H Pulse Oximetry 97 95 Intake & Output 04/29/18 04/30/18 04/30/18 18:59 06:59 18:59 Intake Total 1000 / 1000 460 / 460 Output Total 900 / 900 1000 / 1000 Balance 100 / 100 -540 / -540 Weight 107.5 kg Intake: IV 350 / 350 100 / 100 Cordarone Inj 450 MG In D5W Inj 250 / 250 241 ML @ 1 MG/MIN 33.33 mls/hr IV.CONT TITRATE PRN Rx#: [id number] Rocephin Inj 2,000 MG In NS Inj 100 / 100 100 / 100 100 ML @ 200 mls/hr IV.SIG Q24H VIJAYA Rx#:[id number] Oral 650 / 650 360 / 360 Output: Urine 1000 / 1000 Urine Amount (Catheter) 900 / 900 Indwelling Temp Sensing 900 / 900 Catheter Other: Date of Last Bowel Movement 04/29/18 04/29/18 # Bowel Movements 0 1 Narrative: GENERAL: Elderly male in NAD. CARDIOVASCULAR: Regular rate and rhythm, without murmurs, gallops, or rubs. RESPIRATORY: Scattered rhonchi. No wheezing. No accessory muscle use. GASTROINTESTINAL: Abdomen soft, non-tender, nondistended. MUSCULOSKELETAL: No cyanosis, or edema. NEURO: Patient is awake alert. He is oriented to person sometimes to place. Moves all 4 extremities, no focal deficits. - Urinary Catheter Management Indwelling Temp Sensing Catheter Cath placed during this visit: yes Reason for continuing: Hourly intake/output Insertion date: 04/25/18 Insertion time: 20:00 Results - Labs CBC & Chem 7: 04/30/18 10:28 04/30/18 10:28 Laboratory Results - last 24 hr 04/29/18 04/29/18 04/29/18 03:23 11:39 16:52 WBC Differential Manual diff final Seg Neuts % (Manual) 43 Band Neuts % (Manual) 8 H Lymphocytes % (Manual) 48 H Monocytes % (Manual) 1 Abs Neuts (Manual) 6.9 Nucleated RBCs/100 WBC 1 H Platelet Estimate Low L Platelet Morphology Normal Ovalocytes 1+ H POC Glucose 193 H 239 H 04/29/18 04/30/18 22:32 07:33 WBC Differential Seg Neuts % (Manual) Band Neuts % (Manual) Lymphocytes % (Manual) Monocytes % (Manual) Abs Neuts (Manual) Nucleated RBCs/100 WBC Platelet Estimate Platelet Morphology Ovalocytes POC Glucose 204 H 226 H Microbiology 04/27/18 10:35 Blood - Peripheral Aerobic Blood Culture - Preliminary No growth in 2 days 04/27/18 10:35 Blood - Peripheral Anaerobic Blood Culture - Preliminary No growth in 2 days 04/27/18 05:11 Blood - Peripheral Aerobic Blood Culture - Preliminary No growth in 2 days 04/27/18 05:11 Blood - Peripheral Anaerobic Blood Culture - Preliminary No growth in 2 days 04/25/18 19:00 Blood - Peripheral Aerobic Blood Culture - Preliminary No growth in 4 days 04/25/18 19:00 Blood - Peripheral Anaerobic Blood Culture - Preliminary No growth in 4 days - Imaging Impressions Head CT 04/29/18 00:00 CONCLUSION: 1. Stable appearance of the brain. . Assessment and Plan - Plan Septic shock Gram-negative bacteremia UTI -Broad-spectrum antibiotics with Zosyn. Vancomycin DC'd by ID 04/26 -Follow-up cultures and de-escalate per sensitivity -IV fluid hydration, reduce maintenance fluid rate to 50 mL/h -Discontinue vasopressin Atrial fibrillation / Flutter with RVR History of hypertension -Resume po amiodarone, wean to DC amiodarone infusion -Check limited echo -Continue Eliquis - On amiodarone drip noted on EKG with persistent afib/flutter with rvr. Wean off amio drip. Increased amio to 200 mg po bid. 2D ECHO pending. Cardio consulted appreciate recs. Sen by Dr Knox appreciate recs. DC coreg. Continue metoprolol. -Patient is on chronic prednisone which was placed on hold and started stress dose steroids 100 mg hydrocortisone IV every 8 hours on 04/26. Tapered down and DC. However patient with wheezing on 04/28 and started on solumedrol tapered to 40 mg IV bid. will continue to taper as tolerated. Acute kidney failure -BUN/creatinine improving with aggressive hydration -CMP in a.m., continue to use IV fluid to 50 mL/h COPD -DuoNeb scheduled and as needed -Hold prednisone. IV hydrocortisone also above -Empiric antibiotics with Zosyn Diabetes mellitus -Hold metformin while in the ICU -Insulin sliding scale BPH -Flomax Urinary retention. Consult urology. Has tana at this time. Proph: GI and DVT prophylaxis -IV famotidine and Eliquis Discussed with the patient, family at bedside, nurse. Plan to DC to rehab when improves and cleared by consultants. PT to work with the patient
[2018-04-30 11:36] LABS: Hematocrit 31.8 % (39.0-51.0); Hemoglobin 10.4 gm/dL (13.0-17.0); Mean Corpuscular HGB Conc 32.6 % (32.0-36.0); Mean Corpuscular Hemoglobin 19.7 pg (27.0-34.0); Mean Corpuscular Volume 60.5 fL (80.0-100.0); Mean Platelet Volume 8.8 fL (7.0-11.0); Platelet Count 93 th/mm3 (150-450); Red Blood Count 5.26 mil/mm3 (4.50-5.90); Red Cell Distribution Width 18.4 % (11.6-17.2); White Blood Count 16.4 th/mm3 (4.0-11.0)
[2018-04-30 11:49] LABS: Calcium 8.3 mg/dL (8.5-10.1); Carbon Dioxide 25.6 meq/L (21.0-32.0); Potassium 4.3 meq/L (3.5-5.1)
[2018-04-30 13:03] LABS: Lymphocytes 62 % (9-44); Monocytes 4 % (0-8); Ovalocytes 1+; Smudge Cells Present; Toxic Granulation 1+
[2018-04-30 13:04] LABS: Platelet Morphology Normal (Normal)
--- NOTE | 2018-04-30 14:20 | P.PNCA ---
Subjective Interval history: No events overnight Afib with mild elevation this morning Physical Exam Vital signs: Vital Signs 04/29/18 16:00 04/29/18 18:00 04/29/18 19:47 Temperature 97.8 F 97.3 F L Pulse Rate 55 L 58 L 65 Respiratory Rate 19 20 18 Blood Pressure 173/76 H 181/81 H Pulse Oximetry 98 98 94 L 04/29/18 20:00 04/29/18 23:00 04/30/18 00:00 Temperature 98 F 97.2 F L Pulse Rate 68 67 74 Respiratory Rate 18 20 18 Blood Pressure 157/74 H 184/86 H Pulse Oximetry 93 L 95 04/30/18 04:00 04/30/18 07:44 04/30/18 08:00 Temperature 97.4 F L 98.3 F Pulse Rate 70 65 67 Respiratory Rate 18 16 Blood Pressure 188/84 H 185/95 H Pulse Oximetry 95 97 04/30/18 08:14 04/30/18 12:00 Temperature 97.9 F Pulse Rate 65 116 H Respiratory Rate 18 12 Blood Pressure 180/102 H Pulse Oximetry 95 94 L Intake & Output 04/29/18 04/30/18 04/30/18 18:59 06:59 18:59 Intake Total 1000 / 1000 460 / 460 Output Total 900 / 900 1000 / 1000 400 / 400 Balance 100 / 100 -540 / -540 -400 / -400 Weight 107.5 kg Intake: IV 350 / 350 100 / 100 Cordarone Inj 450 MG In D5W Inj 250 / 250 241 ML @ 1 MG/MIN 33.33 mls/hr IV.CONT TITRATE PRN Rx#: [id number] Rocephin Inj 2,000 MG In NS Inj 100 / 100 100 / 100 100 ML @ 200 mls/hr IV.SIG Q24H [facility] Rx#:[id number] Oral 650 / 650 360 / 360 Output: Urine 1000 / 1000 Urine Amount (Catheter) 900 / 900 Indwelling Temp Sensing 900 / 900 Catheter Stool Amount (Stoma) 400 / 400 Pre-Hospital: Left Lower 400 / 400 Abdomen Other: Date of Last Bowel Movement 04/29/18 04/29/18 04/29/18 # Bowel Movements 0 1 Narrative: GENERAL: NAD, AAOx3 SKIN: Warm and dry. HEAD: Atraumatic. Normocephalic. EYES: Pupils equal and round. No scleral icterus. No injection or drainage. ENT: No nasal bleeding or discharge. Mucous membranes pink and moist. NECK: Trachea midline. No JVD. CARDIOVASCULAR: Irregularly irregular. RESPIRATORY: No accessory muscle use. Decreased bilaterally. GASTROINTESTINAL: Abdomen soft, non-tender, nondistended. Hepatic and splenic margins not palpable. MUSCULOSKELETAL: Trace edema NEUROLOGICAL: Awake and alert. No obvious cranial nerve deficits. Motor grossly within normal limits. Five out of 5 muscle strength in the arms and legs. Normal speech. PSYCHIATRIC: Appropriate mood and affect; insight and judgment normal. - Urinary Catheter Management Indwelling Temp Sensing Catheter Cath placed during this visit: yes Reason for continuing: Hourly intake/output Insertion date: 04/25/18 Insertion time: 20:00 Assessment and Plan - Assessment (1) Afib Code(s): I48.91 - Unspecified atrial fibrillation Status: Acute (2) Thrombocytopenia Code(s): D69.6 - Thrombocytopenia, unspecified Status: Acute (3) Bacteremia Code(s): R78.81 - Bacteremia Status: Acute (4) Obesity Code(s): E66.9 - Obesity, unspecified Status: Acute (5) Renal insufficiency Code(s): N28.9 - Disorder of kidney and ureter, unspecified Status: Acute (6) Sepsis Code(s): A41.9 - Sepsis, unspecified organism Status: Acute (7) Acute UTI Code(s): N39.0 - Urinary tract infection, site not specified Status: Acute (8) CHF (congestive heart failure) Code(s): I50.9 - Heart failure, unspecified Status: Acute - Plan 1) AFib/Flutter with RVR Converted to sinus rhythm, now back in Afib with mild RVR Amiod PO Most likely potentiated by UTI/Bacteremia 2) Con't on Metoprolol Coreg stopped, should not be on both 3) Thrombocytopenia May be due to sepsis Will continue on Eliquis, but if further drop in Plts Eliquis will need to be stopped 4) Wants to go home Explained he was still on Amiodarone drip and this needs to be changed to PO , need to make sure he's stable on PO meds before discharge 5) Add Cardizem for further rate control and anti-hypertensive (6) Sepsis Qualifiers: Sepsis type: sepsis due to unspecified organism Qualified Code(s): A41.9 - Sepsis, unspecified organism
[2018-04-30] MEDS: dilTIAZem 30 MG Tablet PO SCH ×3 (14:28→22:03)
--- NOTE | 2018-04-30 21:11 | P.CONURO ---
History of Present Illness Service: urology Consult date: 04/30/18 Reason for Consult: retention Primary Care Provider: Yfn Myles MD Family Provider: Yfn Myles MD Chief Complaint: retention History of Present Illness: 82yo male with history of afib seen in consultation for urinary retention, sepsis, and ANISH. Patient reports he has been having difficulty in voiding that has progressively worsened over time. He was found to have a distended bladder with elevated BUN and Cr and a fajardo catheter was placed. He has been started on IV abx as well. WBC as well as renal function has progressively improved while inpatient Review of Systems All other systems reviewed negative except as stated in HPI PMFSH - History History Provided By: Patient, Medical Record - Medical History Medical History: Medical History (Last Reviewed 04/25/18 @ 19:33 by DANTE Jovel) Afib Arthritis COPD (chronic obstructive pulmonary disease) Colon cancer Diabetes mellitus HLD (hyperlipidemia) HTN (hypertension) Polyneuropathy - Surgical History Surgical History: Surgical History (Last Reviewed 04/25/18 @ 19:33 by DANTE Jovel) Colostomy in place H/O nasal sinusotomy History of ethmoidectomy History of umbilical hernia repair History of unicondylar arthroplasty of right knee Status post laser cataract surgery of both eyes - Family History Family History: Family History (Last Reviewed 04/25/18 @ 19:33 by DANTE Jovel) Father Motor vehicle accident Mother Old age - Tobacco History Second Hand Smoke Exposure: No Tobacco Use In Past 30 Days: No Smoking Status: Former smoker (Quit smoking 8 years ago) Tobacco Type: Cigarettes Smoking End Date: 2009 - Alcohol History How Often Do You Have a Drink Containing Alcohol: Never - Substance Use History Substance History: No History of Abuse, Unable to Obtain - Travel History Recent Travel in the [place] Within the Last 8 Weeks: No Recent Travel Out of the Country Within the Last 8 Weeks: No Medications and Allergies Active Medications: Active Medications Acetaminophen (Tylenol) 650 mg PO Q6H PRN PRN Reason: PAIN 1-10 AND/OR FEVER >101F Al Hydroxide/Mg Hydroxide (Milk Of Magnmarita Liq) 30 ml PO Q12H PRN PRN Reason: Mild Constipation Albuterol (Duoneb Neb (Prn)) 1 ampul NEB Q2HR NEB PRN PRN Reason: WHEEZING Albuterol (Duoneb Neb ([facility])) 1 ampul NEB Q4HR NEB [facility] Last Admin: 04/30/18 20:51 Dose: 1 ampul Amiodarone HCl (Cordarone) 200 mg PO Q12HR [facility] Last Admin: 04/30/18 08:31 Dose: 200 mg Apixaban (Eliquis) 2.5 mg PO BID [facility] Last Admin: 04/30/18 08:31 Dose: 2.5 mg Bisacodyl (Dulcolax Supp) 10 mg RECTAL DAILY PRN PRN Reason: SEVERE CONSITIPATION Budesonide (Pulmocort Respule Neb) 0.5 mg NEB Q12HR NEB [facility] Last Admin: 04/30/18 20:51 Dose: 0.5 mg Chlorhexidine Gluconate (Chlorhexidine 2% Cloth) 3 pack TOPICAL DAILY@0400 [facility] Stop: 05/01/18 03:59 Last Admin: 04/30/18 06:28 Dose: Not Given Chlorhexidine Gluconate (Chlorhexidine 2% Cloth) 3 pack TOPICAL DAILY@0400 PRN PRN Reason: Extra cloth needed Stop: 05/01/18 03:59 Dextrose (D50w Vial) 50 ml IV.PUSH UNSCH PRN PRN Reason: PER HYPOGLYCEMIA PROTOCOL Diltiazem HCl (Cardizem) 30 mg PO QID [facility] Last Admin: 04/30/18 16:59 Dose: 30 mg Famotidine (Pepcid Pf Inj) 10 mg IV.PUSH Q12HR [facility] Last Admin: 04/30/18 08:30 Dose: 10 mg Glucagon (Glucagon Inj) 1 mg OTHER PRN PRN PRN Reason: for Hypoglycemia Protocol Norepinephrine Bitartrate (Levophed-Dextrose 4 Mg/250 Ml Drip) 4 mg in 250 mls @ 7.5 mls/hr IV.SIG TITRATE PRN; Protocol PRN Reason: Per Protocol Last Titration: 04/26/18 20:00 Dose: 0 mcg/min, 0 mls/hr Sodium Chloride (Ns Inj) 1,000 mls @ 0 mls/hr IV.SIG BOLUS [facility] Last Infusion: 04/26/18 14:34 Dose: Infused Vasopressin 40 unit/ Sodium (Chloride) 100 mls @ 6 mls/hr IV.CONT CONT [facility]JAYA; Protocol Last Infusion: 04/27/18 08:35 Dose: 0 units/min, 0 mls/hr Amiodarone HCl 450 mg/ (Dextrose) 250 mls @ 33.33 mls/hr IV.CONT TITRATE PRN; Protocol PRN Reason: Per Protocol Last Titration: 04/29/18 20:00 Dose: 0 mg/min, 0 mls/hr Ceftriaxone Sodium 2,000 mg/ (Sodium Chloride) 100 mls @ 200 mls/hr IV.SIG Q24H [facility] Last Infusion: 04/29/18 22:00 Dose: Infused Insulin Aspart (Novolog Insulin Correctional Sugar Inj) 0 unit SQ ACHS [facility]; Protocol Last Admin: 04/30/18 16:51 Dose: 10 unit Insulin Detemir (Levemir Inj) 10 unit SQ Q12HR [facility] Last Admin: 04/30/18 08:29 Dose: 10 unit Ipratropium [place] (Atrovent Neb) 0.5 mg NEB Q2HR NEB PRN PRN Reason: Shortness Of Breath/Wheezing Last Admin: 04/27/18 08:41 Dose: 0.5 mg Lactobacillus Acidophilus (Lactinex) 1 tab PO TID [facility] Last Admin: 04/30/18 16:59 Dose: 1 tab Lactulose (Lactulose Liq) 30 ml PO DAILY PRN PRN Reason: SEVERE CONSITIPATION Methylprednisolone Sodium Succinate (Solumedrol Inj) 40 mg IV.PUSH Q12HR [facility] Last Admin: 04/30/18 08:30 Dose: 40 mg Metoclopramide HCl (Reglan Inj) 5 mg IV.PUSH Q6HR [facility]; Protocol Last Admin: 04/30/18 16:59 Dose: 5 mg Metoprolol Tartrate (Lopressor) 50 mg PO TID [facility] Last Admin: 04/30/18 16:59 Dose: 50 mg Ondansetron HCl (Zofran Inj) 4 mg IV.PUSH Q6H PRN PRN Reason: NAUSEA OR VOMITING Oxycodone HCl (Roxicodone) 5 mg PO Q6H PRN PRN Reason: Pain 3 to 10 Prednisone (Deltasone) 10 mg PO DAILY [facility] Last Admin: 04/26/18 08:10 Dose: 10 mg Senna/Docusate Sodium (Krystin-Colace) 1 tab PO BID [facility] Last Admin: 04/30/18 08:31 Dose: Not Given Sennosides (Senokot) 17.2 mg PO Q12H PRN PRN Reason: Moderate Constipation Sodium Chloride (Ns Flush) 2 ml IV.FLUSH BID [facility] Last Admin: 04/30/18 08:30 Dose: 2 ml Sodium Chloride (Ns Flush) 2 ml IV.FLUSH PRN PRN PRN Reason: FLUSH AFTER USING IV ACCESS Tamsulosin HCl (Flomax) 0.4 mg PO DAILY [facility] Last Admin: 04/30/18 08:30 Dose: 0.4 mg Terbutaline Sulfate (Brethine Inj) 1 mg SQ UNSCH PRN PRN Reason: For Extravasation Allergies Allergy/AdvReac Type Severity Reaction Status Date / Time aspirin Allergy Mild HEART RATE Verified 03/25/18 20:32 INCREASES caffeine Allergy Mild HEART RATE Verified 03/25/18 20:32 INCREASES Home Medications Medication Instructions Recorded Confirmed Type metoprolol tartrate 50 mg PO BID 03/12/18 04/25/18 History Physical Exam Vital Signs - 24 hr 04/29/18 23:00 04/30/18 00:00 04/30/18 04:00 Temperature 97.2 F L 97.4 F L Pulse Rate 67 74 70 Respiratory Rate 20 18 18 Blood Pressure 184/86 H 188/84 H Pulse Oximetry 95 95 04/30/18 07:44 04/30/18 08:00 04/30/18 08:14 Temperature 98.3 F Pulse Rate 65 67 65 Respiratory Rate 16 18 Blood Pressure 185/95 H Pulse Oximetry 97 95 04/30/18 12:00 04/30/18 16:00 04/30/18 20:00 Temperature 97.9 F 98.3 F 97.7 F Pulse Rate 116 H 66 68 Respiratory Rate 12 14 19 Blood Pressure 180/102 H 114/82 170/74 H Pulse Oximetry 94 L 94 L 95 04/30/18 20:51 Temperature Pulse Rate 66 Respiratory Rate 20 Blood Pressure Pulse Oximetry 98 Physical Exam: GENERAL: This is a well-nourished, well-developed patient, in no apparent distress. SKIN: No rashes, ecchymoses or lesions. Cool and dry. HEAD: Atraumatic. Normocephalic. EYES: Extraocular motions intact. No scleral icterus. No injection or drainage. ENT: Nose without bleeding, purulent drainage. Airway patent. NECK: Trachea midline. CARDIOVASCULAR: Normal pulse RESPIRATORY: nonlabored GASTROINTESTINAL: Abdomen soft, non-tender, nondistended. GENITOURINARY: Fajardo catheter in place, draining clear yellow urine MUSCULOSKELETAL: Extremities without clubbing, cyanosis, or edema. NEUROLOGICAL: Awake and alert. Motor and sensory grossly within normal limits. Normal speech. Laboratory Results - last 24 hr 04/29/18 04/30/18 04/30/18 22:32 07:33 10:28 WBC RBC Hgb Hct MCV MCH MCHC RDW Plt Count MPV Prelim Diff (Auto) WBC Differential Seg Neuts % (Manual) Band Neuts % (Manual) Lymphocytes % (Manual) Monocytes % (Manual) Abs Neuts (Manual) Differential Comment Smudge Cells Toxic Granulation Platelet Estimate Platelet Morphology Ovalocytes Sodium 143 Potassium 4.3 Chloride 110 H Carbon Dioxide 25.6 Anion Gap 7 BUN 62 H Creatinine 1.90 H Estimated GFR 34 L POC Glucose 204 H 226 H Random Glucose 237 H Calcium 8.3 L 04/30/18 04/30/18 04/30/18 10:28 11:16 16:05 WBC 16.4 H RBC 5.26 Hgb 10.4 L Hct 31.8 L MCV 60.5 L MCH 19.7 L MCHC 32.6 RDW 18.4 H Plt Count 93 L D MPV 8.8 Prelim Diff (Auto) Manual diff required WBC Differential Manual diff final Seg Neuts % (Manual) 32 Band Neuts % (Manual) 2 Lymphocytes % (Manual) 62 H Monocytes % (Manual) 4 Abs Neuts (Manual) 5.6 Differential Comment . Smudge Cells Present H Toxic Granulation 1+ H Platelet Estimate Low L Platelet Morphology Normal Ovalocytes 1+ H Sodium Potassium Chloride Carbon Dioxide Anion Gap BUN Creatinine Estimated GFR POC Glucose 279 H 231 H Random Glucose Calcium Microbiology 04/29/18 03:23 Aerobic Blood Culture - Preliminary Blood - Peripheral No growth in 1 day Anaerobic Blood Culture - Preliminary No growth in 1 day 04/29/18 03:15 Aerobic Blood Culture - Preliminary Blood - Peripheral No growth in 1 day Anaerobic Blood Culture - Preliminary No growth in 1 day 04/27/18 10:35 Aerobic Blood Culture - Preliminary Blood - Peripheral No growth in 3 days Anaerobic Blood Culture - Preliminary No growth in 3 days 04/27/18 05:11 Aerobic Blood Culture - Preliminary Blood - Peripheral No growth in 3 days Anaerobic Blood Culture - Preliminary No growth in 3 days 04/25/18 19:00 Aerobic Blood Culture - Final Blood - Peripheral No growth in 5 days Anaerobic Blood Culture - Final No growth in 5 days Result Diagrams: 04/30/18 10:28 04/30/18 10:28 Imaging: ITS Impressions Chest X-Ray 04/28/18 00:00 Cardiomegaly and aortic calcification noted. There is patchy right basilar airspace disease noted. There is mild atelectasis at the left base. Cannot exclude small effusions. CONCLUSION: Basilar airspace disease. Head CT 04/29/18 00:00 CONCLUSION: 1. Stable appearance of the brain. . Assessment and Plan - Assessment (1) Acute renal insufficiency Code(s): N28.9 - Disorder of kidney and ureter, unspecified Status: Acute (2) COPD (chronic obstructive pulmonary disease) Code(s): J44.9 - Chronic obstructive pulmonary disease, unspecified Status: Chronic - Plan Maintain fajardo catheter. Start Flomax. Continue abx. Patient may followup as outpatient for voiding trial. Discharge home with catheter in place with Urology followup in clinic for catheter removal and voiding trial. Please call with questions
[2018-05-01] MEDS: Senna/Docusate Sodium 8.6/50 MG Tablet PO SCH ×2 (06:36→08:10)
[2018-05-01] MEDS: Famotidine PF Inj 20 MG/2 ML Vial IV.PUSH SCH (08:08)
[2018-05-01] MEDS: Insulin Detemir Inj 1,000 UNIT/10 ML Vial SQ SCH (08:08)
[2018-05-01] MEDS: Metoprolol Tartrate 50 MG Tablet PO SCH ×3 (08:09→18:19)
[2018-05-01] MEDS: Lactobacillus Acidophilus/L. Spores Tablet PO SCH ×3 (08:09→18:19)
[2018-05-01] MEDS: Amiodarone 200 MG Tablet PO SCH (08:10)
[2018-05-01] MEDS: MethylPREDNISolone Sod Succinate Inj 40 MG/ML Vial IV.PUSH SCH (08:11)
[2018-05-01] MEDS: dilTIAZem 30 MG Tablet PO SCH ×3 (08:17→18:18)
[2018-05-01] MEDS: Insulin NovoLOG Aspart Correctional Sugar Inj SQ SCH ×3 (09:26→18:15)
[2018-05-01 09:57] LABS: Hematocrit 34.9 % (39.0-51.0); Mean Corpuscular HGB Conc 31.6 % (32.0-36.0); Mean Corpuscular Hemoglobin 19.4 pg (27.0-34.0); Mean Corpuscular Volume 61.5 fL (80.0-100.0); Mean Platelet Volume 8.3 fL (7.0-11.0); Platelet Count 107 th/mm3 (150-450); Red Blood Count 5.67 mil/mm3 (4.50-5.90); Red Cell Distribution Width 18.5 % (11.6-17.2); White Blood Count 16.5 th/mm3 (4.0-11.0)
[2018-05-01 10:12] LABS: Calcium 8.2 mg/dL (8.5-10.1); Potassium 4.5 meq/L (3.5-5.1)
--- NOTE | 2018-05-01 10:40 | P.PN ---
Subjective Interval history: In bed feels improving today. No cp, sob, lightheadedness. No n/v/d/c. Physical Exam Vital signs: Vital Signs 04/30/18 12:00 04/30/18 16:00 04/30/18 20:00 Temperature 97.9 F 98.3 F 97.7 F Pulse Rate 116 H 66 68 Respiratory Rate 12 14 19 Blood Pressure 180/102 H 114/82 170/74 H Pulse Oximetry 94 L 94 L 95 04/30/18 20:51 05/01/18 00:00 05/01/18 04:00 Temperature 97.9 F 98 F Pulse Rate 66 66 68 Respiratory Rate 20 17 17 Blood Pressure 165/70 H 172/78 H Pulse Oximetry 98 95 97 05/01/18 08:00 05/01/18 09:19 Temperature 97.4 F L Pulse Rate 113 H 68 Respiratory Rate 18 16 Blood Pressure 140/98 H Pulse Oximetry 94 L Intake & Output 04/30/18 05/01/18 05/01/18 18:59 06:59 18:59 Intake Total 100 / 100 Output Total 850 / 850 350 / 350 450 / 450 Balance -850 / -850 -250 / -250 -450 / -450 Weight 107.6 kg Intake: IV 100 / 100 Rocephin Inj 2,000 MG In NS Inj 100 / 100 100 ML @ 200 mls/hr IV.SIG Q24H [facility] Rx#:[id number] Output: Stool 450 / 450 Urine Amount (Catheter) 350 / 350 Indwelling Temp Sensing 350 / 350 Catheter Stool Amount (Stoma) 850 / 850 Pre-Hospital: Left Lower 850 / 850 Abdomen Other: Date of Last Bowel Movement 04/29/18 Narrative: GENERAL: Pleasant 82 yo male, NAD, AAOx3 CARDIOVASCULAR: Irregularly irregular. RESPIRATORY: No accessory muscle use. Decreased bilaterally. GASTROINTESTINAL: Abdomen soft, non-tender, nondistended. Hepatic and splenic margins not palpable. MUSCULOSKELETAL: Trace edema improved. NEUROLOGICAL: Awake and alert. No obvious cranial nerve deficits. Motor grossly within normal limits. Five out of 5 muscle strength in the arms and legs. Normal speech. PSYCHIATRIC: Appropriate mood and affect; insight and judgment normal. - Urinary Catheter Management Indwelling Temp Sensing Catheter Cath placed during this visit: yes Reason for continuing: Hourly intake/output Insertion date: 04/25/18 Insertion time: 20:00 Results - Labs CBC & Chem 7: 05/01/18 09:16 05/01/18 09:16 Laboratory Results - last 24 hr 04/30/18 04/30/18 04/30/18 10:28 10:28 11:16 WBC 16.4 H RBC 5.26 Hgb 10.4 L Hct 31.8 L MCV 60.5 L MCH 19.7 L MCHC 32.6 RDW 18.4 H Plt Count 93 L D MPV 8.8 Prelim Diff (Auto) Manual diff required WBC Differential Manual diff final Seg Neuts % (Manual) 32 Band Neuts % (Manual) 2 Lymphocytes % (Manual) 62 H Monocytes % (Manual) 4 Abs Neuts (Manual) 5.6 Differential Comment . Smudge Cells Present H Toxic Granulation 1+ H Platelet Estimate Low L Platelet Morphology Normal Ovalocytes 1+ H Sodium 143 Potassium 4.3 Chloride 110 H Carbon Dioxide 25.6 Anion Gap 7 BUN 62 H Creatinine 1.90 H Estimated GFR 34 L POC Glucose 279 H Random Glucose 237 H Calcium 8.3 L 04/30/18 04/30/18 05/01/18 16:05 21:55 08:47 WBC RBC Hgb Hct MCV MCH MCHC RDW Plt Count MPV Prelim Diff (Auto) WBC Differential Seg Neuts % (Manual) Band Neuts % (Manual) Lymphocytes % (Manual) Monocytes % (Manual) Abs Neuts (Manual) Differential Comment Smudge Cells Toxic Granulation Platelet Estimate Platelet Morphology Ovalocytes Sodium Potassium Chloride Carbon Dioxide Anion Gap BUN Creatinine Estimated GFR POC Glucose 231 H 224 H 133 H Random Glucose Calcium 05/01/18 05/01/18 05/01/18 09:16 09:16 09:16 WBC 16.5 H RBC 5.67 Hgb 11.0 L Hct 34.9 L MCV 61.5 L MCH 19.4 L MCHC 31.6 L RDW 18.5 H Plt Count 107 L MPV 8.3 Prelim Diff (Auto) Manual diff required WBC Differential Seg Neuts % (Manual) Band Neuts % (Manual) Lymphocytes % (Manual) Monocytes % (Manual) Abs Neuts (Manual) Differential Comment . Smudge Cells Toxic Granulation Platelet Estimate Platelet Morphology Ovalocytes Sodium 144 Potassium 4.5 Chloride 111 H Carbon Dioxide 24.0 Anion Gap 9 BUN 54 H 53 H Creatinine 1.63 H Estimated GFR 41 L POC Glucose Random Glucose 134 H D Calcium 8.2 L Microbiology 04/29/18 03:23 Blood - Peripheral Aerobic Blood Culture - Preliminary No growth in 1 day 04/29/18 03:23 Blood - Peripheral Anaerobic Blood Culture - Preliminary No growth in 1 day 04/29/18 03:15 Blood - Peripheral Aerobic Blood Culture - Preliminary No growth in 1 day 04/29/18 03:15 Blood - Peripheral Anaerobic Blood Culture - Preliminary No growth in 1 day 04/27/18 10:35 Blood - Peripheral Aerobic Blood Culture - Preliminary No growth in 3 days 04/27/18 10:35 Blood - Peripheral Anaerobic Blood Culture - Preliminary No growth in 3 days 04/27/18 05:11 Blood - Peripheral Aerobic Blood Culture - Preliminary No growth in 3 days 04/27/18 05:11 Blood - Peripheral Anaerobic Blood Culture - Preliminary No growth in 3 days 04/25/18 19:00 Blood - Peripheral Aerobic Blood Culture - Final No growth in 5 days 04/25/18 19:00 Blood - Peripheral Anaerobic Blood Culture - Final No growth in 5 days Assessment and Plan - Plan Septic shock Gram-negative bacteremia UTI -Broad-spectrum antibiotics with Zosyn. Vancomycin DC'd by ID 04/26 -Follow-up cultures and de-escalate per sensitivity -IV fluid hydration, reduce maintenance fluid rate to 50 mL/h -Discontinue vasopressin Atrial fibrillation / Flutter with RVR History of hypertension -Resume po amiodarone, DC amiodarone drip -Check limited echo -Continue Eliquis - On amiodarone drip noted on EKG with persistent afib/flutter with rvr. Wean off amio drip. Increased amio to 200 mg po bid. 2D ECHO pending. Cardio consulted appreciate recs. Sen by Dr Knox appreciate recs. DC coreg. Continue metoprolol. -Patient is on chronic prednisone which was placed on hold and started stress dose steroids 100 mg hydrocortisone IV every 8 hours on 04/26. Tapered down and DC. However patient with wheezing on 04/28 and started on solumedrol tapered . - Was noted with Afib with rvr and started on cardizem Acute kidney failure -BUN/creatinine improving with aggressive hydration -CMP in a.m., continue to use IV fluid to 50 mL/h COPD -DuoNeb scheduled and as needed -Resume prednisone. IV hydrocortisone DCd. Solumedrol also tapered and DCd -Empiric antibiotics with Zosyn Diabetes mellitus -Hold metformin while in the ICU -Insulin sliding scale BPH -Flomax Urinary retention. Consult urology. Has fajardo at this time. Continue fajardo at DC . To follow up as OP with urology Proph: GI and DVT prophylaxis -IV famotidine and Eliquis Discussed with the patient, family at bedside, nurse. Plan to DC to rehab when improves and cleared by consultants. PT to work with the patient On amio and added cardizem PO for Afib, DC when patient heart rate is controlled by PO meds, DC when cleared by cardiology can titrate up cardizem. Plan to DC to SNF.
[2018-05-01 12:07] LABS: Lymphocytes 55 % (9-44); Monocytes 1 % (0-8); Myelocytes 2 % (0-0); Platelet Morphology Normal (Normal)
[2018-05-01 12:08] LABS: Smudge Cells Present
[2018-05-01 12:09] LABS: Ovalocytes 1+
--- NOTE | 2018-05-01 12:57 | P.PNCA ---
Subjective Interval history: Heart rates overall better, still with some periods of mild RVR Physical Exam Vital signs: Vital Signs 04/30/18 16:00 04/30/18 20:00 04/30/18 20:51 Temperature 98.3 F 97.7 F Pulse Rate 66 68 66 Respiratory Rate 14 19 20 Blood Pressure 114/82 170/74 H Pulse Oximetry 94 L 95 98 05/01/18 00:00 05/01/18 04:00 05/01/18 08:00 Temperature 97.9 F 98 F 97.4 F L Pulse Rate 66 68 106 H Respiratory Rate 17 17 18 Blood Pressure 165/70 H 172/78 H 140/98 H Pulse Oximetry 95 97 94 L 05/01/18 09:19 05/01/18 12:00 Temperature 97.8 F Pulse Rate 68 61 Respiratory Rate 16 18 Blood Pressure 141/62 H Pulse Oximetry 97 Intake & Output 04/30/18 05/01/18 05/01/18 18:59 06:59 18:59 Intake Total 100 / 100 Output Total 850 / 850 350 / 350 450 / 450 Balance -850 / -850 -250 / -250 -450 / -450 Weight 107.6 kg Intake: IV 100 / 100 Rocephin Inj 2,000 MG In NS Inj 100 / 100 100 ML @ 200 mls/hr IV.SIG Q24H [facility] Rx#:[id number] Output: Stool 450 / 450 Urine Amount (Catheter) 350 / 350 Indwelling Temp Sensing 350 / 350 Catheter Stool Amount (Stoma) 850 / 850 Pre-Hospital: Left Lower 850 / 850 Abdomen Other: Date of Last Bowel Movement 04/29/18 Narrative: GENERAL: NAD, AAOx3 SKIN: Warm and dry. HEAD: Atraumatic. Normocephalic. EYES: Pupils equal and round. No scleral icterus. No injection or drainage. ENT: No nasal bleeding or discharge. Mucous membranes pink and moist. NECK: Trachea midline. No JVD. CARDIOVASCULAR: Irregularly irregular. RESPIRATORY: No accessory muscle use. Decreased bilaterally. GASTROINTESTINAL: Abdomen soft, non-tender, nondistended. Hepatic and splenic margins not palpable. MUSCULOSKELETAL: Trace edema NEUROLOGICAL: Awake and alert. No obvious cranial nerve deficits. Motor grossly within normal limits. Five out of 5 muscle strength in the arms and legs. Normal speech. PSYCHIATRIC: Appropriate mood and affect; insight and judgment normal. - Urinary Catheter Management Indwelling Temp Sensing Catheter Cath placed during this visit: yes Reason for continuing: Hourly intake/output Insertion date: 04/25/18 Insertion time: 20:00 Assessment and Plan - Assessment (1) Afib Code(s): I48.91 - Unspecified atrial fibrillation Status: Acute (2) Thrombocytopenia Code(s): D69.6 - Thrombocytopenia, unspecified Status: Acute (3) Bacteremia Code(s): R78.81 - Bacteremia Status: Acute (4) Obesity Code(s): E66.9 - Obesity, unspecified Status: Acute (5) Renal insufficiency Code(s): N28.9 - Disorder of kidney and ureter, unspecified Status: Acute (6) Sepsis Code(s): A41.9 - Sepsis, unspecified organism Status: Acute (7) Acute UTI Code(s): N39.0 - Urinary tract infection, site not specified Status: Acute (8) CHF (congestive heart failure) Code(s): I50.9 - Heart failure, unspecified Status: Acute - Plan 1) AFib/Flutter with RVR Converted to sinus rhythm, occasional RVR Amio PO Most likely potentiated by UTI/Bacteremia 2) Con't on Metoprolol Coreg stopped, should not be on both 3) Thrombocytopenia May be due to sepsis, getting better Will continue on Eliquis, but if further drop in Plts Eliquis will need to be stopped 4) Wants to go home 5) Cardizem for further rate control and anti-hypertensive May be titrated up as needed (6) Sepsis Qualifiers: Sepsis type: sepsis due to unspecified organism Qualified Code(s): A41.9 - Sepsis, unspecified organism
[2018-05-02] MEDS: Famotidine PF Inj 20 MG/2 ML Vial IV.PUSH SCH ×3 (00:05→21:06)
[2018-05-02] MEDS: Senna/Docusate Sodium 8.6/50 MG Tablet PO SCH ×3 (00:14→21:06)
[2018-05-02] MEDS: dilTIAZem 30 MG Tablet PO SCH ×2 (00:14→09:02)
[2018-05-02] MEDS: Amiodarone 200 MG Tablet PO SCH ×3 (00:14→21:06)
[2018-05-02] MEDS: Insulin NovoLOG Aspart Correctional Sugar Inj SQ SCH ×5 (00:16→21:17)
[2018-05-02] MEDS: Insulin Detemir Inj 1,000 UNIT/10 ML Vial SQ SCH ×3 (00:16→21:18)
[2018-05-02] MEDS: Metoprolol Tartrate 50 MG Tablet PO SCH ×4 (05:35→17:38)
[2018-05-02] MEDS: predniSONE 10 MG Tablet PO SCH (09:01)
[2018-05-02] MEDS: Lactobacillus Acidophilus/L. Spores Tablet PO SCH ×3 (09:01→17:38)
[2018-05-02] MEDS ORDERED: Metoprolol Tartrate 50 MG Tablet PO ONE (10:20)
--- NOTE | 2018-05-02 10:30 | P.PN ---
Subjective Interval history: Follow-up of patient with atrial fibrillation with RVR. Patient seen and examined. Patient denies any complaints of palpitations or chest pain. He denies any worsening of his chronic shortness of breath. He denies any fever or chills. Discussed with nursing staff, patient has been in RVR since early this morning despite being given all of his current medications. Will give patient an additional dose of metoprolol now. We will plan to transfer patient so that we can start him on a Cardizem drip. Dr. Mendiola notified. Physical Exam Vital signs: Vital Signs 05/01/18 12:00 05/01/18 16:00 05/01/18 18:19 Temperature 97.8 F 97.9 F Pulse Rate 61 62 60 Respiratory Rate 18 18 Blood Pressure 141/62 H 158/72 H Pulse Oximetry 97 97 05/01/18 20:13 05/01/18 20:39 05/01/18 23:35 Temperature 98.6 F 97.6 F Pulse Rate 63 65 67 Respiratory Rate 20 20 19 Blood Pressure 177/76 H 175/75 H Pulse Oximetry 95 93 L 95 05/02/18 03:30 05/02/18 08:00 05/02/18 09:40 Temperature 98.9 F 97.6 F Pulse Rate 141 H 110 H Respiratory Rate 26 H 24 Blood Pressure 145/98 H 141/80 H Pulse Oximetry 97 95 97 Intake & Output 05/01/18 05/02/18 05/02/18 18:59 06:59 18:59 Intake Total 500 / 500 100 / 100 Output Total 1300 / 1300 Balance -800 / -800 100 / 100 Weight 107.6 kg Intake: IV 100 / 100 Rocephin Inj 2,000 MG In NS Inj 100 / 100 100 ML @ 200 mls/hr IV.SIG Q24H [facility] Rx#:[id number] Oral 500 / 500 Output: Urine 800 / 800 Stool 500 / 500 Other: Date of Last Bowel Movement 04/29/18 05/02/18 Narrative: GENERAL: WDWN obese male patient, not in any acute distress. Awake and alert. SKIN: Warm and dry. HEAD: Atraumatic. Normocephalic. EYES: Pupils equal and round. No scleral icterus. No injection or drainage. ENT: No nasal bleeding or discharge. Mucous membranes pink and moist. NECK: Trachea midline. No JVD. CARDIOVASCULAR: Irregularly irregular. RESPIRATORY: No accessory muscle use. Diminished bilaterally. Breath sounds equal bilaterally. GASTROINTESTINAL: Abdomen soft, non-tender, nondistended. +BS. GENITOURINARY: Fajardo in place with clear yellow urine in bag. MUSCULOSKELETAL: Extremities without clubbing or cyanosis. Trace to 1+ BLE edema. No obvious deformities. NEUROLOGICAL: Awake and alert. No obvious cranial nerve deficits. Motor grossly within normal limits. Able to move all extremities spontaneously. Normal speech. PSYCHIATRIC: Appropriate mood and affect; insight and judgment normal. - Urinary Catheter Management Indwelling Temp Sensing Catheter Cath placed during this visit: yes Reason for continuing: Acute urinary retention Insertion date: 04/25/18 Insertion time: 20:00 Results - Labs CBC & Chem 7: 05/02/18 13:14 05/02/18 13:14 Laboratory Results - last 24 hr 05/01/18 05/01/18 05/01/18 09:16 12:26 18:10 WBC Differential Manual diff final Seg Neuts % (Manual) 41 Band Neuts % (Manual) 1 Lymphocytes % (Manual) 55 H Monocytes % (Manual) 1 Myelocytes % (Man) 2 H Abs Neuts (Manual) 7.3 Smudge Cells Present H Platelet Estimate Low L Platelet Morphology Normal Ovalocytes 1+ H POC Glucose 169 H 223 H 05/02/18 05/02/18 00:12 08:27 WBC Differential Seg Neuts % (Manual) Band Neuts % (Manual) Lymphocytes % (Manual) Monocytes % (Manual) Myelocytes % (Man) Abs Neuts (Manual) Smudge Cells Platelet Estimate Platelet Morphology Ovalocytes POC Glucose 107 136 H Microbiology 04/29/18 03:23 Blood - Peripheral Aerobic Blood Culture - Preliminary No growth in 2 days 04/29/18 03:23 Blood - Peripheral Anaerobic Blood Culture - Preliminary No growth in 2 days 04/29/18 03:15 Blood - Peripheral Aerobic Blood Culture - Preliminary No growth in 2 days 04/29/18 03:15 Blood - Peripheral Anaerobic Blood Culture - Preliminary No growth in 2 days 04/27/18 10:35 Blood - Peripheral Aerobic Blood Culture - Preliminary No growth in 4 days 04/27/18 10:35 Blood - Peripheral Anaerobic Blood Culture - Preliminary No growth in 4 days 04/27/18 05:11 Blood - Peripheral Aerobic Blood Culture - Preliminary No growth in 4 days 04/27/18 05:11 Blood - Peripheral Anaerobic Blood Culture - Preliminary No growth in 4 days - Imaging ITS Impressions Chest X-Ray 04/28/18 00:00 Cardiomegaly and aortic calcification noted. There is patchy right basilar airspace disease noted. There is mild atelectasis at the left base. Cannot exclude small effusions. CONCLUSION: Basilar airspace disease. Head CT 04/29/18 00:00 CONCLUSION: 1. Stable appearance of the brain. . Assessment and Plan - Plan Atrial fibrillation / Flutter with RVR History of hypertension -rate uncontrolled. Give additional dose of Metoprolol now. Transfer patient. Begin on Cardizem drip. Hold po Cardizem. -Cardiology following, appreciate assistance -continue on po amiodarone and metoprolol -Continue Eliquis -Patient is on chronic prednisone which was placed on hold and started stress dose steroids 100 mg hydrocortisone IV every 8 hours on 04/26. Tapered down and DC. However patient with wheezing on 04/28 and started on solumedrol tapered. Septic shock Gram-negative bacteremia, E coli UTI, Ecoli -repeat blood cx neg -ID following, on IV Ceftriaxone -IV fluid hydration, reduce maintenance fluid rate to 50 mL/h Acute kidney failure -BUN/creatinine improving with aggressive hydration -CMP in a.m., continue to use IV fluid to 50 mL/h COPD Chronic respiratory failure O2 dependent -DuoNeb scheduled and as needed -Patient is on chronic prednisone which was placed on hold and started stress dose steroids 100 mg hydrocortisone IV every 8 hours on 04/26. Tapered down and DC. However patient with wheezing on 04/28 and started on solumedrol taper. Diabetes mellitus -Hold metformin while in the ICU -patient on Levemir 10u BID but has been refusing -Insulin sliding scale BPH Urinary retention -continue on Flomax -Evaluated by Urology. Has fajardo at this time. Continue fajardo at DC . To follow up as OP with urology Proph: GI and DVT prophylaxis -IV famotidine and Eliquis Code Status: FULL Discussed Condition With: patient, nursing staff, Dr. Alatorre
[2018-05-02] MEDS: dilTIAZem Inj 125 MG in Sodium Chlor 0.9% Inj 100 ML IV.CONT PRN (12:49)
[2018-05-02 13:32] LABS: Baso % (Auto) 0.1 % (0.0-2.0); Eos # (Auto) 0.3 th/mm3 (0.0-0.4); Eos % (Auto) 1.9 % (0.0-4.0); Hematocrit 37.1 % (39.0-51.0); Hemoglobin 11.4 gm/dL (13.0-17.0); Lymph # (Auto) 4.9 th/mm3 (1.0-4.8); Lymph % (Auto) 30.9 % (9.0-44.0); Mean Corpuscular HGB Conc 30.7 % (32.0-36.0); Mean Corpuscular Hemoglobin 19.2 pg (27.0-34.0); Mean Corpuscular Volume 62.4 fL (80.0-100.0); Mean Platelet Volume 8.2 fL (7.0-11.0); Mono # (Auto) 0.2 th/mm3 (0.0-0.9); Mono % (Auto) 1.2 % (0.0-8.0); Neut # (Auto) 10.4 th/mm3 (1.8-7.7); Neut % (Auto) 65.9 % (16.0-70.0); Platelet Count 102 th/mm3 (150-450); Red Blood Count 5.94 mil/mm3 (4.50-5.90); Red Cell Distribution Width 19.3 % (11.6-17.2); White Blood Count 15.7 th/mm3 (4.0-11.0)
[2018-05-02 14:03] LABS: Carbon Dioxide 26.4 meq/L (21.0-32.0); Potassium 4.5 meq/L (3.5-5.1)
[2018-05-02 14:25] LABS: Lymphocytes 25 % (9-44); Ovalocytes 2+; Platelet Morphology Normal (Normal); Tallied Nucleated RBC 1 (0-0); Toxic Granulation 1+
--- NOTE | 2018-05-02 18:25 | P.PNCA ---
Subjective Interval history: Transferred for Cardizem drip due to AFib with RVR Started on Cardizem at 5mg/hr, converted to sinus rhythm Physical Exam Vital signs: Vital Signs 05/01/18 20:13 05/01/18 20:39 05/01/18 23:35 Temperature 98.6 F 97.6 F Pulse Rate 63 65 67 Respiratory Rate 20 20 19 Blood Pressure 177/76 H 175/75 H Pulse Oximetry 95 93 L 95 05/02/18 03:30 05/02/18 08:00 05/02/18 09:40 Temperature 98.9 F 97.6 F Pulse Rate 141 H 110 H Respiratory Rate 26 H 24 Blood Pressure 145/98 H 141/80 H Pulse Oximetry 97 95 97 05/02/18 11:49 05/02/18 12:00 05/02/18 13:00 Temperature 97.5 F L Pulse Rate 143 H 139 H 58 L Respiratory Rate 29 H 26 H 21 Blood Pressure 139/94 H Pulse Oximetry 97 96 96 05/02/18 13:01 05/02/18 13:05 05/02/18 14:00 Temperature Pulse Rate 59 L 57 L Respiratory Rate 23 20 Blood Pressure 133/90 Pulse Oximetry 97 96 96 05/02/18 14:01 05/02/18 15:00 05/02/18 15:01 Temperature Pulse Rate 56 L 58 L 60 Respiratory Rate 20 20 22 Blood Pressure 147/64 H 142/64 H Pulse Oximetry 96 96 96 05/02/18 16:00 Temperature 97.8 F Pulse Rate 59 L Respiratory Rate 18 Blood Pressure 155/69 H Pulse Oximetry 97 Intake & Output 05/01/18 05/02/18 05/02/18 18:59 06:59 18:59 Intake Total 500 / 500 100 / 100 240 / 240 Output Total 1300 / 1300 550 / 550 Balance -800 / -800 100 / 100 -310 / -310 Weight 107.6 kg Intake: IV 100 / 100 Rocephin Inj 2,000 MG In NS Inj 100 / 100 100 ML @ 200 mls/hr IV.SIG Q24H [facility] Rx#:[id number] Oral 500 / 500 240 / 240 Output: Urine 800 / 800 350 / 350 Stool 500 / 500 200 / 200 Other: Date of Last Bowel Movement 04/29/18 05/02/18 Narrative: GENERAL: WDWN obese male patient, not in any acute distress. Awake and alert. SKIN: Warm and dry. HEAD: Atraumatic. Normocephalic. EYES: Pupils equal and round. No scleral icterus. No injection or drainage. ENT: No nasal bleeding or discharge. Mucous membranes pink and moist. NECK: Trachea midline. No JVD. CARDIOVASCULAR: RRR RESPIRATORY: No accessory muscle use. Diminished bilaterally. Breath sounds equal bilaterally. GASTROINTESTINAL: Abdomen soft, non-tender, nondistended. +BS. GENITOURINARY: Barker in place with clear yellow urine in bag. MUSCULOSKELETAL: Extremities without clubbing or cyanosis. Trace to 1+ BLE edema. No obvious deformities. NEUROLOGICAL: Awake and alert. No obvious cranial nerve deficits. Motor grossly within normal limits. Able to move all extremities spontaneously. Normal speech. PSYCHIATRIC: Appropriate mood and affect; insight and judgment normal. - Urinary Catheter Management Indwelling Temp Sensing Catheter Cath placed during this visit: yes Reason for continuing: Acute urinary retention Insertion date: 04/25/18 Insertion time: 20:00 Assessment and Plan - Assessment (1) Afib Code(s): I48.91 - Unspecified atrial fibrillation Status: Acute (2) Thrombocytopenia Code(s): D69.6 - Thrombocytopenia, unspecified Status: Acute (3) Bacteremia Code(s): R78.81 - Bacteremia Status: Acute (4) Obesity Code(s): E66.9 - Obesity, unspecified Status: Acute (5) Renal insufficiency Code(s): N28.9 - Disorder of kidney and ureter, unspecified Status: Acute (6) Sepsis Code(s): A41.9 - Sepsis, unspecified organism Status: Acute (7) Acute UTI Code(s): N39.0 - Urinary tract infection, site not specified Status: Acute (8) CHF (congestive heart failure) Code(s): I50.9 - Heart failure, unspecified Status: Acute - Plan 1) AFib/Flutter with RVR Converted to sinus rhythm, occasional RVR Amio PO Most likely potentiated by UTI/Bacteremia Cardizem drip Will change to PO in the morning 2) Con't on Metoprolol Coreg stopped, should not be on both 3) Thrombocytopenia May be due to sepsis, getting better Will continue on Eliquis, but if further drop in Plts Eliquis will need to be stopped (6) Sepsis Qualifiers: Sepsis type: sepsis due to unspecified organism Qualified Code(s): A41.9 - Sepsis, unspecified organism
[2018-05-03 05:35] LABS: Baso % (Auto) 0.1 % (0.0-2.0); Eos # (Auto) 0.2 th/mm3 (0.0-0.4); Eos % (Auto) 1.6 % (0.0-4.0); Hematocrit 25.2 % (39.0-51.0); Hemoglobin 8.1 gm/dL (13.0-17.0); Lymph # (Auto) 3.5 th/mm3 (1.0-4.8); Lymph % (Auto) 32.7 % (9.0-44.0); Mean Corpuscular Hemoglobin 19.7 pg (27.0-34.0); Mean Corpuscular Volume 61.6 fL (80.0-100.0); Mean Platelet Volume 8.5 fL (7.0-11.0); Mono # (Auto) 0.1 th/mm3 (0.0-0.9); Neut % (Auto) 64.6 % (16.0-70.0); Platelet Count 71 th/mm3 (150-450); Red Blood Count 4.09 mil/mm3 (4.50-5.90); Red Cell Distribution Width 18.6 % (11.6-17.2); White Blood Count 10.8 th/mm3 (4.0-11.0)
[2018-05-03] MEDS: Famotidine PF Inj 20 MG/2 ML Vial IV.PUSH SCH (08:13)
[2018-05-03] MEDS: predniSONE 10 MG Tablet PO SCH (08:14)
[2018-05-03] MEDS: Amiodarone 200 MG Tablet PO SCH (08:14)
[2018-05-03] MEDS: Senna/Docusate Sodium 8.6/50 MG Tablet PO SCH (08:14)
[2018-05-03] MEDS: Lactobacillus Acidophilus/L. Spores Tablet PO SCH ×3 (08:14→17:43)
[2018-05-03] MEDS: Metoprolol Tartrate 50 MG Tablet PO SCH ×3 (08:14→17:43)
[2018-05-03] MEDS: Insulin Detemir Inj 1,000 UNIT/10 ML Vial SQ SCH (08:15)
[2018-05-03] MEDS: Insulin NovoLOG Aspart Correctional Sugar Inj SQ SCH ×3 (08:15→16:59)
[2018-05-03] MEDS: dilTIAZem Inj 125 MG in Sodium Chlor 0.9% Inj 100 ML IV.CONT PRN (09:56)
--- NOTE | 2018-05-03 10:33 | P.PNIM ---
Subjective Interval history: Patient remains on Cardizem drip went back into A. fib/ a flutter remains on Cardizem drip at 15 mg/h Discussed with RN and patient Dr. Mendiola is aware of the heart rate and meds have been adjusted Physical therapy and occupational therapy to eval and treat A.m. labs Physical Exam Vital signs: Vital Signs 05/02/18 11:49 05/02/18 12:00 05/02/18 13:00 Temperature 97.5 F L Pulse Rate 143 H 139 H 58 L Respiratory Rate 29 H 26 H 21 Blood Pressure 139/94 H Pulse Oximetry 97 96 96 05/02/18 13:01 05/02/18 13:05 05/02/18 14:00 Temperature Pulse Rate 59 L 57 L Respiratory Rate 23 20 Blood Pressure 133/90 Pulse Oximetry 97 96 96 05/02/18 14:01 05/02/18 15:00 05/02/18 15:01 Temperature Pulse Rate 56 L 58 L 60 Respiratory Rate 20 20 22 Blood Pressure 147/64 H 142/64 H Pulse Oximetry 96 96 96 05/02/18 16:00 05/02/18 17:00 05/02/18 17:01 Temperature 97.8 F Pulse Rate 59 L 59 L 60 Respiratory Rate 18 146 H 154 H Blood Pressure 155/69 H 176/70 H Pulse Oximetry 97 97 97 05/02/18 18:00 05/02/18 18:01 05/02/18 19:00 Temperature Pulse Rate 57 L 56 L 56 L Respiratory Rate 150 H 128 H 128 H Blood Pressure 126/58 L Pulse Oximetry 96 96 98 05/02/18 19:01 05/02/18 19:32 05/02/18 20:00 Temperature 97.7 F Pulse Rate 55 L 55 L 60 Respiratory Rate 149 H 18 140 H Blood Pressure 128/63 144/64 H Pulse Oximetry 97 98 97 05/02/18 20:01 05/02/18 21:00 05/02/18 21:01 Temperature Pulse Rate 58 L 59 L 60 Respiratory Rate 118 H 122 H 124 H Blood Pressure 144/64 H 126/58 L Pulse Oximetry 97 95 95 05/02/18 22:00 05/02/18 23:00 05/02/18 23:01 Temperature Pulse Rate 59 L 59 L 59 L Respiratory Rate 168 H 75 H 20 Blood Pressure 140/62 144/67 H Pulse Oximetry 98 98 98 05/02/18 23:05 05/03/18 00:00 05/03/18 00:01 Temperature 98 F Pulse Rate 59 L 58 L Respiratory Rate 28 H 22 Blood Pressure 147/65 H 147/65 H Pulse Oximetry 98 98 98 05/03/18 01:00 05/03/18 02:00 05/03/18 02:01 Temperature Pulse Rate 60 59 L 58 L Respiratory Rate 125 H 30 H 28 H Blood Pressure 159/70 H 159/70 H Pulse Oximetry 98 99 99 05/03/18 03:00 05/03/18 03:01 05/03/18 03:19 Temperature Pulse Rate 60 59 L Respiratory Rate 145 H 80 H Blood Pressure 139/64 Pulse Oximetry 99 99 98 05/03/18 04:00 05/03/18 04:01 05/03/18 05:00 Temperature 97.8 F Pulse Rate 61 59 L 60 Respiratory Rate 24 19 105 H Blood Pressure 167/69 H 167/69 H Pulse Oximetry 98 97 99 05/03/18 05:01 05/03/18 06:00 05/03/18 06:01 Temperature Pulse Rate 61 59 L 59 L Respiratory Rate 40 H 23 31 H Blood Pressure 136/61 142/65 H Pulse Oximetry 99 98 99 05/03/18 07:00 05/03/18 07:01 05/03/18 07:25 Temperature Pulse Rate 64 62 62 Respiratory Rate 75 H 93 H 16 Blood Pressure 157/70 H Pulse Oximetry 97 97 98 05/03/18 08:00 05/03/18 08:01 05/03/18 09:00 Temperature 98.4 F Pulse Rate 62 62 105 H Respiratory Rate 39 H 106 H 25 H Blood Pressure 159/70 H 159/70 H 132/72 Pulse Oximetry 93 L 93 L 98 Intake & Output 05/02/18 05/03/18 05/03/18 18:59 06:59 18:59 Intake Total 240 / 240 1250 / 1250 125 / 125 Output Total 550 / 550 250 / 250 Balance -310 / -310 1000 / 1000 125 / 125 Weight 118 kg Intake: IV 1250 / 1250 125 / 125 Cardizem Inj 125 MG In NS Inj 125 / 125 100 ML @ 5 MG/HR 5 mls/hr IV. CONT TITRATE PRN Rx#:[id number] Rocephin Inj 2,000 MG In NS Inj 100 / 100 100 ML @ 200 mls/hr IV.SIG Q24H VIJAYA Rx#:[id number] Oral 240 / 240 Output: Urine 350 / 350 Stool 200 / 200 Urine Amount (Catheter) 250 / 250 Indwelling Temp Sensing 250 / 250 Catheter Other: Date of Last Bowel Movement 05/02/18 05/02/18 05/02/18 Narrative: GENERAL: WDWN obese male patient, not in any acute distress. Awake and alert. SKIN: Warm and dry. HEAD: Atraumatic. Normocephalic. EYES: Pupils equal and round. No scleral icterus. No injection or drainage. ENT: No nasal bleeding or discharge. Mucous membranes pink and moist. NECK: Trachea midline. No JVD. CARDIOVASCULAR: IRRR S1-S2 no S3 or S4 RESPIRATORY: No accessory muscle use. Diminished bilaterally. Breath sounds equal bilaterally. GASTROINTESTINAL: Abdomen soft, non-tender, nondistended. +BS. GENITOURINARY: Fajardo in place with clear yellow urine in bag. MUSCULOSKELETAL: Extremities without clubbing or cyanosis. Trace to 1+ BLE edema. No obvious deformities. NEUROLOGICAL: Awake and alert. No obvious cranial nerve deficits. Motor grossly within normal limits. Able to move all extremities spontaneously. Normal speech. PSYCHIATRIC: Appropriate mood and affect; insight and judgment normal. - Urinary Catheter Management Indwelling Temp Sensing Catheter Cath placed during this visit: yes Reason for continuing: Acute urinary retention Insertion date: 04/25/18 Insertion time: 20:00 Results - Labs CBC & Chem 7: 05/03/18 02:55 05/02/18 13:14 Laboratory Results - last 24 hr 05/02/18 05/02/18 05/02/18 11:45 13:14 13:14 WBC 15.7 H RBC 5.94 H Hgb 11.4 L Hct 37.1 L MCV 62.4 L MCH 19.2 L MCHC 30.7 L RDW 19.3 H Plt Count 102 L MPV 8.2 Prelim Diff (Auto) Slide review pending Neut % (Auto) 65.9 Lymph % (Auto) 30.9 [place] % (Auto) 1.2 Eos % (Auto) 1.9 Baso % (Auto) 0.1 Neut # (Auto) 10.4 H Lymph # (Auto) 4.9 H [place] # (Auto) 0.2 Eos # (Auto) 0.3 Baso # (Auto) 0.0 WBC Differential Manual diff final Seg Neuts % (Manual) 69 Band Neuts % (Manual) 6 Lymphocytes % (Manual) 25 Abs Neuts (Manual) 11.8 H Nucleated RBCs/100 WBC 1 H Differential Comment . Toxic Granulation 1+ H Platelet Estimate Low L Platelet Morphology Normal Ovalocytes 2+ H Sodium 144 Potassium 4.5 Chloride 109 H Carbon Dioxide 26.4 Anion Gap 9 BUN 43 H Creatinine 1.63 H Estimated GFR 41 L POC Glucose Random Glucose 215 H Calcium 8.0 L Magnesium 2.0 Nasal Screen MRSA (PCR) Not detected 05/02/18 05/03/18 05/03/18 16:42 02:55 07:42 WBC 10.8 RBC 4.09 L Hgb 8.1 L D Hct 25.2 L MCV 61.6 L MCH 19.7 L MCHC 32.0 RDW 18.6 H Plt Count 71 L D MPV 8.5 Prelim Diff (Auto) Slide review pending Neut % (Auto) 64.6 Lymph % (Auto) 32.7 [place] % (Auto) 1.0 Eos % (Auto) 1.6 Baso % (Auto) 0.1 Neut # (Auto) 7.0 Lymph # (Auto) 3.5 [place] # (Auto) 0.1 Eos # (Auto) 0.2 Baso # (Auto) 0.0 WBC Differential Seg Neuts % (Manual) Band Neuts % (Manual) Lymphocytes % (Manual) Abs Neuts (Manual) Nucleated RBCs/100 WBC Differential Comment . Toxic Granulation Platelet Estimate Platelet Morphology Ovalocytes Sodium Potassium Chloride Carbon Dioxide Anion Gap BUN Creatinine Estimated GFR POC Glucose 197 H 217 H Random Glucose Calcium Magnesium Nasal Screen MRSA (PCR) Microbiology 04/29/18 03:23 Blood - Peripheral Aerobic Blood Culture - Preliminary No growth in 3 days 04/29/18 03:23 Blood - Peripheral Anaerobic Blood Culture - Preliminary No growth in 3 days 04/29/18 03:15 Blood - Peripheral Aerobic Blood Culture - Preliminary No growth in 3 days 04/29/18 03:15 Blood - Peripheral Anaerobic Blood Culture - Preliminary No growth in 3 days 04/27/18 10:35 Blood - Peripheral Aerobic Blood Culture - Final No growth in 5 days 04/27/18 10:35 Blood - Peripheral Anaerobic Blood Culture - Final No growth in 5 days 04/27/18 05:11 Blood - Peripheral Aerobic Blood Culture - Final No growth in 5 days 04/27/18 05:11 Blood - Peripheral Anaerobic Blood Culture - Final No growth in 5 days - Imaging Chest X-Ray 04/25/18 18:59 CONCLUSION: 1. Bibasilar patchiness consistent with atelectasis and/or infiltrates. 2. Cardiomegaly. Chest X-Ray 04/26/18 11:03 CONCLUSION: Central line placement as above. Chest X-Ray 04/27/18 06:00 CONCLUSION: Mild consolidation and small effusions at each base, slightly worse in the interim. Chest X-Ray 04/28/18 00:00 Cardiomegaly and aortic calcification noted. There is patchy right basilar airspace disease noted. There is mild atelectasis at the left base. Cannot exclude small effusions. CONCLUSION: Basilar airspace disease. Head CT 04/29/18 00:00 CONCLUSION: 1. Stable appearance of the brain. . - Procedures Date of procedure: 04/26/18 Pre-op diagnosis: septic shock Post-op diagnosis: same Procedure: US guided [facility] central line Central line checklist completed, timeout completed. I wore a surgical cap, mask with protective eyewear, full gown and sterile gloves throughout the procedure. Right neck region was prepped using chlorhexidine scrub and draped in sterile fashion. The right IJ was identified using the ultrasound. Anesthesia was achieved over the vein using 1% lidocaine. The introducer needle was inserted into the right IJ under direct ultrasound visualization. Venous blood was withdrawn. The syringe was removed and a guidewire was advanced into the introducer needle. A small incision was made at the skin surface with a scalpel and the introducer needle was exchanged for a dilator over the guidewire. After appropriate dilation was obtained, the dilator was exchanged over the wire for a triple lumen, 7F, antibiotic coated central venous catheter. The wire was removed and the catheter was sutured in place at 18 cm. A sterile central line dressing was placed over the catheter at the insertion site. The patient tolerated the procedure without any hemodynamic compromise. At time of procedure completion, all ports aspirated and flushed properly. Post- procedure chest x-ray is pending at this time. Anesthesia: local Surgeon: Radha Nance Estimated blood loss (mL): 1 Pathology: none sent Condition: critical Disposition: ICU Documented By: Radha Nance MD Assessment and Plan - Plan Atrial fibrillation / Flutter with RVR History of hypertension -rate uncontrolled. Give additional dose of Metoprolol now. Transfer patient. Begin on Cardizem drip. Hold po Cardizem. -Rate had increased on Cardizem to 15 mg/h -Cardiology following, appreciate assistance -continue on po amiodarone and metoprolol -Continue Eliquis -Patient is on chronic prednisone which was placed on hold and started stress dose steroids 100 mg hydrocortisone IV every 8 hours on 04/26. Tapered down and DC. However patient with wheezing on 04/28 and started on solumedrol tapered. Septic shock Gram-negative bacteremia, E coli UTI, Ecoli -repeat blood cx neg -ID following, on IV Ceftriaxone -IV fluid hydration, reduce maintenance fluid rate to 50 mL/h Acute kidney failure -BUN/creatinine improving with aggressive hydration -CMP in a.m., continue to use IV fluid to 50 mL/h COPD Chronic respiratory failure O2 dependent -DuoNeb scheduled and as needed -Patient is on chronic prednisone which was placed on hold and started stress dose steroids 100 mg hydrocortisone IV every 8 hours on 04/26. Tapered down and DC. However patient with wheezing on 04/28 and started on solumedrol taper. Diabetes mellitus -Hold metformin while in the ICU -patient on Levemir 10u BID but has been refusing -Insulin sliding scale Monitor sugars BPH Urinary retention -continue on Flomax -Evaluated by Urology. Has fajardo at this time. Continue fajardo at DC . To follow up as OP with urology We will need to go home with Fajardo catheter Proph: GI and DVT prophylaxis -IV famotidine and Eliquis Code Status: Full code Discussed Condition With: RN and patient Discharge Planning: Pending improvement of heart rate and improvement of breathing and pneumonia and UTI
[2018-05-03] MEDS: guaiFENesin 600 MG ER Tablet PO SCH (10:44)
[2018-05-03 11:18] LABS: Eosinophils 3 % (0-4); Lymphocytes 32 % (9-44); Metamyelocytes 1 % (0-1); Monocytes 3 % (0-8); Ovalocytes 2+; Platelet Morphology Normal (Normal)
--- NOTE | 2018-05-03 11:53 | P.PNID ---
Subjective Remarks: is an 82 y/o CM who is a resident of [facility] under the care of Dr.Gerald Valente. Patient's past medical history is significant for COPD, history of respiratory failure in the past, muscle weakness, difficulty walking, obstructive uropathy, A. fib, hypertension, hyperlipidemia possible history of coronary artery disease. Patient reportedly also has a history of diabetes and is on [facility]em[facility]. Of note he was admitted in December 2017 due to history of stool impaction, a colonoscopy revealed adenocarcinoma of the colon. Dr. Fry hematology oncology was consulted for abnormal CBC as well as diagnosis of adenocarcinoma. Upon review of Dr. Fry notes it appears that patient refused adjuvant chemotherapy and was offered a CT chest abdomen pelvis for staging in the hospital but refused to do so since he had one recently done as outpatient. I am unsure if the patient had any follow-up for the same. Patient was asked to take vitamin B12 supplement for possible B12 deficiency at that time. It appears that patient was recently treated for COPD exacerbation April 06, 2018 with prednisone possibly some antibiotics. Patient had a WBC count drawn on April 25, 2018 with a WBC count of 19.3 H&H of 9.7/30.4, platelets 87 his UA was abnormal and as there were budding yeast identified on urinalysis he was started on Diflucan by his primary care doctor Dr. Merrill at the prison. His creatinine was 3.57 his BUN was 121 glucose was 231 on the labs drawn on April 25, 2018. Due to worsening clinical condition while at the prison and labs patient was sent to the hospital for further evaluation. While in the emergency department WBC count was done which was at 26,000 he had a borderline low blood pressure and this was concerning for severe sepsis and therefore patient was admitted under the care of youth corrections officer. Overnight patient seems to have received some fluids, sepsis workup was initiated and empiric antibiotics were started. Blood cultures drawn and admission are positive for gram-negative rods and infectious disease is consulted for the evaluation and management of septic shock due to gram-negative sepsis. At the time of my evaluation patient is in the ICU on 10 mics of Levophed. Urine output okay. Currently not intubated. Patient appears to be alert oriented 3 appears to be hard of hearing but when questioned about the colostomy bag he does not know the details so there is likely a component of acute encephalopathy. PMHx: Afib Arthritis COPD (chronic obstructive pulmonary disease) Adenocarcinoma of the colon Diabetes mellitus HLD (hyperlipidemia) HTN (hypertension) Polyneuropathy PSHx: Laparoscopic sigmoid colectomy with end colectomy and colostomy in place in December 2017. Pathology consistent with adenocarcinoma of the colon. Mobilization of splenic flexure at the same time. Repair of umbilical hernia December 2017. Several nasal endoscopic procedures. H/O nasal sinusotomy History of ethmoidectomy. History of maxillary sinus so to me. History of umbilical hernia repair. Right knee arthroplasty as well as patellectomy. Status post laser cataract surgery of both eyes Overnight events reviewed with RN. In ICU for Afib with RVR. Not on pressors. Alert oriented Urine output ok, some leakage of urine noted on clothing and sheets by RN. No fever No rash No diarrhea Antibiotics: Zosyn IV Lines: Line sites with no evidence of infection. Past Medical History: Reviewed. Allergies/Adverse Reactions: Allergies aspirin Allergy (Mild, Verified 03/25/18 20:32) HEART RATE INCREASES caffeine Allergy (Mild, Verified 03/25/18 20:32) HEART RATE INCREASES Objective Vital Signs 05/02/18 12:00 05/02/18 13:00 05/02/18 13:01 Temperature 97.5 F L Pulse Rate 139 H 58 L 59 L Respiratory Rate 26 H 21 23 Blood Pressure 139/94 H 133/90 Pulse Oximetry 96 96 97 05/02/18 13:05 05/02/18 14:00 05/02/18 14:01 Temperature Pulse Rate 57 L 56 L Respiratory Rate 20 20 Blood Pressure 147/64 H Pulse Oximetry 96 96 96 05/02/18 15:00 05/02/18 15:01 05/02/18 16:00 Temperature 97.8 F Pulse Rate 58 L 60 59 L Respiratory Rate 20 22 18 Blood Pressure 142/64 H 155/69 H Pulse Oximetry 96 96 97 05/02/18 17:00 05/02/18 17:01 05/02/18 18:00 Temperature Pulse Rate 59 L 60 57 L Respiratory Rate 146 H 154 H 150 H Blood Pressure 176/70 H Pulse Oximetry 97 97 96 05/02/18 18:01 05/02/18 19:00 05/02/18 19:01 Temperature Pulse Rate 56 L 56 L 55 L Respiratory Rate 128 H 128 H 149 H Blood Pressure 126/58 L 128/63 Pulse Oximetry 96 98 97 05/02/18 19:32 05/02/18 20:00 05/02/18 20:01 Temperature 97.7 F Pulse Rate 55 L 60 58 L Respiratory Rate 18 140 H 118 H Blood Pressure 144/64 H 144/64 H Pulse Oximetry 98 97 97 05/02/18 21:00 05/02/18 21:01 05/02/18 22:00 Temperature Pulse Rate 59 L 60 59 L Respiratory Rate 122 H 124 H 168 H Blood Pressure 126/58 L 140/62 Pulse Oximetry 95 95 98 05/02/18 23:00 05/02/18 23:01 05/02/18 23:05 Temperature Pulse Rate 59 L 59 L Respiratory Rate 75 H 20 Blood Pressure 144/67 H Pulse Oximetry 98 98 98 05/03/18 00:00 05/03/18 00:01 05/03/18 01:00 Temperature 98 F Pulse Rate 59 L 58 L 60 Respiratory Rate 28 H 22 125 H Blood Pressure 147/65 H 147/65 H 159/70 H Pulse Oximetry 98 98 98 05/03/18 02:00 05/03/18 02:01 05/03/18 03:00 Temperature Pulse Rate 59 L 58 L 60 Respiratory Rate 30 H 28 H 145 H Blood Pressure 159/70 H Pulse Oximetry 99 99 99 05/03/18 03:01 05/03/18 03:19 05/03/18 04:00 Temperature 97.8 F Pulse Rate 59 L 61 Respiratory Rate 80 H 24 Blood Pressure 139/64 167/69 H Pulse Oximetry 99 98 98 05/03/18 04:01 05/03/18 05:00 05/03/18 05:01 Temperature Pulse Rate 59 L 60 61 Respiratory Rate 19 105 H 40 H Blood Pressure 167/69 H 136/61 Pulse Oximetry 97 99 99 05/03/18 06:00 05/03/18 06:01 05/03/18 07:00 Temperature Pulse Rate 59 L 59 L 64 Respiratory Rate 23 31 H 75 H Blood Pressure 142/65 H Pulse Oximetry 98 99 97 05/03/18 07:01 05/03/18 07:25 05/03/18 08:00 Temperature 98.4 F Pulse Rate 62 62 62 Respiratory Rate 93 H 16 39 H Blood Pressure 157/70 H 159/70 H Pulse Oximetry 97 98 93 L 05/03/18 08:01 05/03/18 09:00 Temperature Pulse Rate 62 105 H Respiratory Rate 106 H 25 H Blood Pressure 159/70 H 132/72 Pulse Oximetry 93 L 98 Intake & Output 05/02/18 05/03/18 05/03/18 18:59 06:59 18:59 Intake Total 240 / 240 1250 / 1250 125 / 125 Output Total 550 / 550 250 / 250 Balance -310 / -310 1000 / 1000 125 / 125 Weight 118 kg Intake: IV 1250 / 1250 125 / 125 Cardizem Inj 125 MG In NS Inj 125 / 125 100 ML @ 5 MG/HR 5 mls/hr IV. CONT TITRATE PRN Rx#:[id number] Rocephin Inj 2,000 MG In NS Inj 100 / 100 100 ML @ 200 mls/hr IV.SIG Q24H VIJAYA Rx#:[id number] Oral 240 / 240 Output: Urine 350 / 350 Stool 200 / 200 Urine Amount (Catheter) 250 / 250 Indwelling Temp Sensing 250 / 250 Catheter Other: Date of Last Bowel Movement 05/02/18 05/02/18 05/02/18 04/29/18 03:23 Blood - Peripheral Aerobic Blood Culture - Preliminary No growth in 4 days 04/29/18 03:23 Blood - Peripheral Anaerobic Blood Culture - Preliminary No growth in 4 days 04/29/18 03:15 Blood - Peripheral Aerobic Blood Culture - Preliminary No growth in 4 days 04/29/18 03:15 Blood - Peripheral Anaerobic Blood Culture - Preliminary No growth in 4 days 04/27/18 10:35 Blood - Peripheral Aerobic Blood Culture - Final No growth in 5 days 04/27/18 10:35 Blood - Peripheral Anaerobic Blood Culture - Final No growth in 5 days 04/27/18 05:11 Blood - Peripheral Aerobic Blood Culture - Final No growth in 5 days 04/27/18 05:11 Blood - Peripheral Anaerobic Blood Culture - Final No growth in 5 days 04/25/18 19:00 Blood - Peripheral Aerobic Blood Culture - Final No growth in 5 days 04/25/18 19:00 Blood - Peripheral Anaerobic Blood Culture - Final No growth in 5 days Lab - Hematology Results 05/01/18 05/02/18 05/03/18 09:16 13:14 02:55 WBC 15.7 H 10.8 RBC 5.94 H 4.09 L Hgb 11.4 L 8.1 L D Hct 37.1 L 25.2 L MCV 62.4 L 61.6 L MCH 19.2 L 19.7 L MCHC 30.7 L 32.0 RDW 19.3 H 18.6 H Plt Count 102 L 71 L D MPV 8.2 8.5 Prelim Diff (Auto) Slide review pending Slide review pending Neut % (Auto) 65.9 64.6 Lymph % (Auto) 30.9 32.7 [place] % (Auto) 1.2 1.0 Eos % (Auto) 1.9 1.6 Baso % (Auto) 0.1 0.1 Neut # (Auto) 10.4 H 7.0 Lymph # (Auto) 4.9 H 3.5 [place] # (Auto) 0.2 0.1 Eos # (Auto) 0.3 0.2 Baso # (Auto) 0.0 0.0 WBC Differential Manual diff final Manual diff final Manual diff final Seg Neuts % (Manual) 41 69 57 Band Neuts % (Manual) 1 6 4 Lymphocytes % (Manual) 55 H 25 32 Monocytes % (Manual) 1 3 Eosinophils % (Manual) 3 Metamyelocytes % (Man) 1 Myelocytes % (Man) 2 H Abs Neuts (Manual) 7.3 11.8 H 6.7 Nucleated RBCs/100 WBC 1 H Differential Comment . . Smudge Cells Present H Toxic Granulation 1+ H Platelet Estimate Low L Low L Low L Platelet Morphology Normal Normal Normal Ovalocytes 1+ H 2+ H 2+ H Lab - Chemistry Results 05/01/18 05/01/18 05/02/18 12:26 18:10 00:12 Sodium Potassium Chloride Carbon Dioxide Anion Gap BUN Creatinine Estimated GFR POC Glucose 169 H 223 H 107 Random Glucose Calcium Magnesium 05/02/18 05/02/18 05/02/18 08:27 13:14 16:42 Sodium 144 Potassium 4.5 Chloride 109 H Carbon Dioxide 26.4 Anion Gap 9 BUN 43 H Creatinine 1.63 H Estimated GFR 41 L POC Glucose 136 H 197 H Random Glucose 215 H Calcium 8.0 L Magnesium 2.0 05/03/18 05/03/18 07:42 11:28 Sodium Potassium Chloride Carbon Dioxide Anion Gap BUN Creatinine Estimated GFR POC Glucose 217 H 168 H Random Glucose Calcium Magnesium Imaging: ITS Impressions Chest X-Ray 04/28/18 00:00 Cardiomegaly and aortic calcification noted. There is patchy right basilar airspace disease noted. There is mild atelectasis at the left base. Cannot exclude small effusions. CONCLUSION: Basilar airspace disease. Head CT 04/29/18 00:00 CONCLUSION: 1. Stable appearance of the brain. . Physical Exam: GENERAL: Obese well-developed, not in acute distress SKIN: Cool and dry, no generalized rash HEAD: Atraumatic. Normocephalic. No temporal or scalp tenderness. EYES: Pupils equal round and reactive. Scleral icterus. No injection or drainage. No petechia ENT: Nothing abnormal detected NECK: Trachea midline. Supple, nontender, no meningeal signs. CARDIOVASCULAR: HS audible. RESPIRATORY: Clear to auscultation bilaterally. GASTROINTESTINAL: Abdomen soft nontender. MUSCULOSKELETAL: Extremities without clubbing, cyanosis. NEUROLOGICAL: Alert oriented 3. Nonfocal. Psych cooperative IV line sites ok. Assessment and Plan - Plan Septic shock Gram-negative bacteremia, E.coli - repeat blood clx NGTD E.coli UTI Bibasilar infiltrates atelectasis versus possible aspiration pneumonia Likely source . Given history of colon cancer would be concerned about GI as a possible source. COPD Congestive heart failure Diabetes mellitus poorly controlled Acute renal failure likely sepsis but also has a history of BPH. Acute metabolic encephalopathy likely secondary to sepsis no known prior history of dementia. Thrombocytopenia likely secondary to sepsis. Recommendations Continue Ceftriaxone Follow cultures follow clinically. Will likely transition to oral on discharge likely Levaquin if QT interval ok.
--- NOTE | 2018-05-03 17:49 | P.PNCA ---
Subjective Interval history: Transferred to ICU for Cardizem drip yesterday Doing well, heart rates controlled on Cardizem drip Physical Exam Vital signs: Vital Signs 05/02/18 18:00 05/02/18 18:01 05/02/18 19:00 Temperature Pulse Rate 57 L 56 L 56 L Respiratory Rate 150 H 128 H 128 H Blood Pressure 126/58 L Pulse Oximetry 96 96 98 05/02/18 19:01 05/02/18 19:32 05/02/18 20:00 Temperature 97.7 F Pulse Rate 55 L 55 L 60 Respiratory Rate 149 H 18 140 H Blood Pressure 128/63 144/64 H Pulse Oximetry 97 98 97 05/02/18 20:01 05/02/18 21:00 05/02/18 21:01 Temperature Pulse Rate 58 L 59 L 60 Respiratory Rate 118 H 122 H 124 H Blood Pressure 144/64 H 126/58 L Pulse Oximetry 97 95 95 05/02/18 22:00 05/02/18 23:00 05/02/18 23:01 Temperature Pulse Rate 59 L 59 L 59 L Respiratory Rate 168 H 75 H 20 Blood Pressure 140/62 144/67 H Pulse Oximetry 98 98 98 05/02/18 23:05 05/03/18 00:00 05/03/18 00:01 Temperature 98 F Pulse Rate 59 L 58 L Respiratory Rate 28 H 22 Blood Pressure 147/65 H 147/65 H Pulse Oximetry 98 98 98 05/03/18 01:00 05/03/18 02:00 05/03/18 02:01 Temperature Pulse Rate 60 59 L 58 L Respiratory Rate 125 H 30 H 28 H Blood Pressure 159/70 H 159/70 H Pulse Oximetry 98 99 99 05/03/18 03:00 05/03/18 03:01 05/03/18 03:19 Temperature Pulse Rate 60 59 L Respiratory Rate 145 H 80 H Blood Pressure 139/64 Pulse Oximetry 99 99 98 05/03/18 04:00 05/03/18 04:01 05/03/18 05:00 Temperature 97.8 F Pulse Rate 61 59 L 60 Respiratory Rate 24 19 105 H Blood Pressure 167/69 H 167/69 H Pulse Oximetry 98 97 99 05/03/18 05:01 05/03/18 06:00 05/03/18 06:01 Temperature Pulse Rate 61 59 L 59 L Respiratory Rate 40 H 23 31 H Blood Pressure 136/61 142/65 H Pulse Oximetry 99 98 99 05/03/18 07:00 05/03/18 07:01 05/03/18 07:25 Temperature Pulse Rate 64 62 62 Respiratory Rate 75 H 93 H 16 Blood Pressure 157/70 H Pulse Oximetry 97 97 98 05/03/18 08:00 05/03/18 08:01 05/03/18 09:00 Temperature 98.4 F Pulse Rate 62 62 105 H Respiratory Rate 39 H 106 H 25 H Blood Pressure 159/70 H 159/70 H 132/72 Pulse Oximetry 93 L 93 L 98 05/03/18 10:00 05/03/18 11:00 05/03/18 11:01 Temperature Pulse Rate 84 86 81 Respiratory Rate 20 16 16 Blood Pressure 143/65 H 121/59 L Pulse Oximetry 96 95 95 05/03/18 12:00 05/03/18 13:00 05/03/18 13:01 Temperature 97.6 F Pulse Rate 54 L 58 L 62 Respiratory Rate 19 22 24 Blood Pressure 124/60 126/82 Pulse Oximetry 96 97 97 05/03/18 14:00 05/03/18 15:00 05/03/18 15:28 Temperature Pulse Rate 51 L 68 53 L Respiratory Rate 26 H 34 H 26 H Blood Pressure 127/59 L 108/53 L Pulse Oximetry 98 99 05/03/18 16:00 05/03/18 16:01 Temperature 97.7 F Pulse Rate 80 62 Respiratory Rate 32 H 30 H Blood Pressure 85/64 L 85/64 L Pulse Oximetry 98 98 Intake & Output 05/02/18 05/03/18 05/03/18 18:59 06:59 18:59 Intake Total 240 / 240 1250 / 1250 125 / 125 Output Total 550 / 550 250 / 250 Balance -310 / -310 1000 / 1000 125 / 125 Weight 118 kg Intake: IV 1250 / 1250 125 / 125 Cardizem Inj 125 MG In NS Inj 125 / 125 100 ML @ 5 MG/HR 5 mls/hr IV. CONT TITRATE PRN Rx#:[id number] Rocephin Inj 2,000 MG In NS Inj 100 / 100 100 ML @ 200 mls/hr IV.SIG Q24H VIJAYA Rx#:[id number] Oral 240 / 240 Output: Urine 350 / 350 Stool 200 / 200 Urine Amount (Catheter) 250 / 250 Indwelling Temp Sensing 250 / 250 Catheter Other: Date of Last Bowel Movement 05/02/18 05/02/18 05/02/18 Narrative: GENERAL: WDWN obese male patient, not in any acute distress. Awake and alert. SKIN: Warm and dry. HEAD: Atraumatic. Normocephalic. EYES: Pupils equal and round. No scleral icterus. No injection or drainage. ENT: No nasal bleeding or discharge. Mucous membranes pink and moist. NECK: Trachea midline. No JVD. CARDIOVASCULAR: Irregularly irregular. RESPIRATORY: No accessory muscle use. Diminished bilaterally. Breath sounds equal bilaterally. GASTROINTESTINAL: Abdomen soft, non-tender, nondistended. +BS. GENITOURINARY: Barker in place with clear yellow urine in bag. MUSCULOSKELETAL: Extremities without clubbing or cyanosis. Trace to 1+ BLE edema. No obvious deformities. NEUROLOGICAL: Awake and alert. No obvious cranial nerve deficits. Motor grossly within normal limits. Able to move all extremities spontaneously. Normal speech. PSYCHIATRIC: Appropriate mood and affect; insight and judgment normal. - Urinary Catheter Management Indwelling Temp Sensing Catheter Cath placed during this visit: yes Reason for continuing: Acute urinary retention Insertion date: 04/25/18 Insertion time: 20:00 Assessment and Plan - Assessment (1) Afib Code(s): I48.91 - Unspecified atrial fibrillation Status: Acute (2) Thrombocytopenia Code(s): D69.6 - Thrombocytopenia, unspecified Status: Acute (3) Bacteremia Code(s): R78.81 - Bacteremia Status: Acute (4) Obesity Code(s): E66.9 - Obesity, unspecified Status: Acute (5) Renal insufficiency Code(s): N28.9 - Disorder of kidney and ureter, unspecified Status: Acute (6) Sepsis Code(s): A41.9 - Sepsis, unspecified organism Status: Acute (7) Acute UTI Code(s): N39.0 - Urinary tract infection, site not specified Status: Acute (8) CHF (congestive heart failure) Code(s): I50.9 - Heart failure, unspecified Status: Acute - Plan 1) AFib/Flutter with RVR Converted to sinus rhythm, occasional RVR Amio PO Most likely potentiated by UTI/Bacteremia Cardizem drip Will change to PO 2) Con't on Metoprolol Coreg stopped, should not be on both 3) Thrombocytopenia May be due to sepsis, getting better Will continue on Eliquis, but if further drop in Plts Eliquis will need to be stopped 4) If further episodes of AFib with RVR, may need Dr. Pope to evaluate (6) Sepsis Qualifiers: Sepsis type: sepsis due to unspecified organism Qualified Code(s): A41.9 - Sepsis, unspecified organism
[2018-05-03] MEDS: dilTIAZem 30 MG Tablet PO SCH (18:36)
[2018-05-04 03:25] LABS: Eos # (Auto) 0.2 th/mm3 (0.0-0.4); Eos % (Auto) 1.6 % (0.0-4.0); Hematocrit 27.9 % (39.0-51.0); Hemoglobin 8.8 gm/dL (13.0-17.0); Lymph # (Auto) 3.7 th/mm3 (1.0-4.8); Lymph % (Auto) 30.3 % (9.0-44.0); Mean Corpuscular HGB Conc 31.7 % (32.0-36.0); Mean Corpuscular Hemoglobin 19.5 pg (27.0-34.0); Mean Corpuscular Volume 61.4 fL (80.0-100.0); Mean Platelet Volume 8.4 fL (7.0-11.0); Mono # (Auto) 0.2 th/mm3 (0.0-0.9); Mono % (Auto) 1.9 % (0.0-8.0); Neut # (Auto) 8.2 th/mm3 (1.8-7.7); Neut % (Auto) 66.2 % (16.0-70.0); Platelet Count 89 th/mm3 (150-450); Red Blood Count 4.55 mil/mm3 (4.50-5.90); Red Cell Distribution Width 19.1 % (11.6-17.2); White Blood Count 12.4 th/mm3 (4.0-11.0)
[2018-05-04 03:54] LABS: Albumin 1.8 g/dL (3.4-5.0); Anion Gap 8 meq/L (5-15); Aspartate Aminotransferase 11 U/L (15-37); Blood Urea Nitrogen 44 mg/dL (7-18); Calcium 7.6 mg/dL (8.5-10.1); Carbon Dioxide 28.3 meq/L (21.0-32.0); Chloride 110 meq/L (98-107); Glomerular Filtration Rate 48 mL/min (>89); Glucose,Random 202 mg/dL (74-106); Magnesium 1.8 mg/dL (1.5-2.5); Potassium 4.1 meq/L (3.5-5.1); Sodium 146 meq/L (136-145)
[2018-05-04 04:03] LABS: Alanine Aminotransferase 18 U/L (12-78); Alkaline Phosphatase 72 U/L (45-117); Free T4 (Free Thyroxine) 1.43 ng/dL (0.76-1.46); Phosphorus 2.6 mg/dL (2.5-4.9); Thyroid Stimulating Hormone 0.511 uIU/mL (0.358-3.740); Total Protein 4.6 g/dL (6.4-8.2)
[2018-05-04 05:02] LABS: Ovalocytes 1+
[2018-05-04] MEDS: dilTIAZem 30 MG Tablet PO SCH ×5 (07:25→20:44)
[2018-05-04] MEDS: Amiodarone 200 MG Tablet PO SCH ×3 (07:25→20:44)
[2018-05-04] MEDS: Insulin Detemir Inj 1,000 UNIT/10 ML Vial SQ SCH ×3 (07:26→20:44)
[2018-05-04] MEDS: guaiFENesin 600 MG ER Tablet PO SCH ×3 (07:26→20:44)
[2018-05-04] MEDS: Insulin NovoLOG Aspart Correctional Sugar Inj SQ SCH ×5 (07:27→20:44)
[2018-05-04] MEDS: Famotidine PF Inj 20 MG/2 ML Vial IV.PUSH SCH ×3 (07:28→20:41)
[2018-05-04] MEDS: Senna/Docusate Sodium 8.6/50 MG Tablet PO SCH ×3 (07:28→20:44)
[2018-05-04] MEDS: Lactobacillus Acidophilus/L. Spores Tablet PO SCH ×3 (08:56→17:19)
[2018-05-04] MEDS: predniSONE 10 MG Tablet PO SCH (08:57)
[2018-05-04] MEDS: Metoprolol Tartrate 50 MG Tablet PO SCH ×3 (08:57→17:19)
--- NOTE | 2018-05-04 10:29 | P.PNIM ---
Subjective Interval history: 05-03 Patient remains on Cardizem drip went back into A. fib/ a flutter remains on Cardizem drip at 15 mg/h Discussed with RN and patient Dr. Mendiola is aware of the heart rate and meds have been adjusted Physical therapy and occupational therapy to eval and treat A.m. labs 05-04 Cardizem dose has been increased by Dr. Mendiola Try to wean off Cardizem drip Monitor today in ICU If stable transfer floor tomorrow A.m. labs Discussed with RN and patient Patient did not take all his medications last night Physical Exam Vital signs: Vital Signs 05/03/18 11:00 05/03/18 11:01 05/03/18 12:00 Temperature 97.6 F Pulse Rate 86 81 54 L Respiratory Rate 16 16 19 Blood Pressure 121/59 L 124/60 Pulse Oximetry 95 95 96 05/03/18 13:00 05/03/18 13:01 05/03/18 14:00 Temperature Pulse Rate 58 L 62 51 L Respiratory Rate 22 24 26 H Blood Pressure 126/82 127/59 L Pulse Oximetry 97 97 98 05/03/18 15:00 05/03/18 15:28 05/03/18 16:00 Temperature 97.7 F Pulse Rate 68 53 L 80 Respiratory Rate 34 H 26 H 32 H Blood Pressure 108/53 L 85/64 L Pulse Oximetry 99 98 05/03/18 16:01 05/03/18 17:00 05/03/18 17:01 Temperature Pulse Rate 62 56 L 54 L Respiratory Rate 30 H 22 23 Blood Pressure 85/64 L 125/59 L Pulse Oximetry 98 99 99 05/03/18 18:00 05/03/18 18:05 05/03/18 19:00 Temperature Pulse Rate 63 59 L 54 L Respiratory Rate 25 H 28 H 25 H Blood Pressure 128/58 L 125/58 L Pulse Oximetry 99 98 99 05/03/18 20:00 05/03/18 20:01 05/03/18 20:04 Temperature 98.6 F Pulse Rate 55 L 54 L 55 L Respiratory Rate 24 21 24 Blood Pressure 128/62 128/62 Pulse Oximetry 99 99 05/03/18 21:00 05/03/18 22:00 05/03/18 22:01 Temperature Pulse Rate 61 67 62 Respiratory Rate 23 19 13 Blood Pressure 140/63 167/71 H Pulse Oximetry 96 97 96 05/03/18 23:00 05/03/18 23:01 05/04/18 00:00 Temperature 98.9 F Pulse Rate 61 61 64 Respiratory Rate 16 15 14 Blood Pressure 133/61 159/70 H Pulse Oximetry 98 98 99 05/04/18 00:01 05/04/18 01:00 05/04/18 02:00 Temperature Pulse Rate 63 63 57 L Respiratory Rate 16 18 111 H Blood Pressure 159/70 H 180/72 H Pulse Oximetry 99 98 98 05/04/18 02:01 05/04/18 03:00 05/04/18 04:00 Temperature 99 F Pulse Rate 56 L 56 L 59 L Respiratory Rate 97 H 99 H 128 H Blood Pressure 127/60 129/60 157/69 H Pulse Oximetry 98 92 L 94 L 05/04/18 04:01 05/04/18 05:00 05/04/18 05:01 Temperature Pulse Rate 59 L 59 L 57 L Respiratory Rate 0 L 82 H 65 H Blood Pressure 147/65 H 150/67 H Pulse Oximetry 95 94 L 94 L 05/04/18 06:00 05/04/18 07:00 05/04/18 07:01 Temperature Pulse Rate 60 62 61 Respiratory Rate 88 H 85 H 100 H Blood Pressure 148/67 H 137/64 Pulse Oximetry 92 L 93 L 93 L 05/04/18 08:00 05/04/18 08:01 05/04/18 08:22 Temperature 98.0 F Pulse Rate 66 63 Respiratory Rate 70 H 108 H Blood Pressure 162/72 H 162/72 H Pulse Oximetry 95 95 93 L 05/04/18 09:00 05/04/18 10:00 Temperature Pulse Rate 68 68 Respiratory Rate 29 H 107 H Blood Pressure 150/69 H 165/72 H Pulse Oximetry 95 96 Intake & Output 05/03/18 05/04/18 05/04/18 18:59 06:59 18:59 Intake Total 1085 / 1085 524 / 524 Output Total 400 / 400 1800 / 1800 Balance 685 / 685 -1276 / -1276 Intake: IV 125 / 125 Cardizem Inj 125 MG In NS Inj 125 / 125 100 ML @ 5 MG/HR 5 mls/hr IV. CONT TITRATE PRN Rx#:[id number] Oral 960 / 960 250 / 250 Other 274 / 274 Output: Urine Amount (Catheter) 100 / 100 1800 / 1800 Indwelling Temp Sensing 100 / 100 1800 / 1800 Catheter Stool Amount (Stoma) 300 / 300 Pre-Hospital: Left Lower 300 / 300 Abdomen Other: # Urine Diapers 3 Date of Last Bowel Movement 05/02/18 05/03/18 Narrative: GENERAL: WDWN obese male patient, not in any acute distress. Awake and alert. SKIN: Warm and dry. HEAD: Atraumatic. Normocephalic. EYES: Pupils equal and round. No scleral icterus. No injection or drainage. ENT: No nasal bleeding or discharge. Mucous membranes pink and moist. NECK: Trachea midline. No JVD. CARDIOVASCULAR: Irregularly irregular. S1-S2 no S3 or S4 RESPIRATORY: No accessory muscle use. Diminished bilaterally. Breath sounds equal bilaterally. GASTROINTESTINAL: Abdomen soft, non-tender, nondistended. +BS. GENITOURINARY: Fajardo in place with clear yellow urine in bag. Fajardo catheter in place MUSCULOSKELETAL: Extremities without clubbing or cyanosis. Trace to 1+ BLE edema. No obvious deformities. NEUROLOGICAL: Awake and alert. No obvious cranial nerve deficits. Motor grossly within normal limits. Able to move all extremities spontaneously. Normal speech. PSYCHIATRIC: Appropriate mood and affect; insight and judgment normal. Fajardo catheter in place - Urinary Catheter Management Indwelling Temp Sensing Catheter Cath placed during this visit: yes Reason for continuing: Other continuation reason Insertion date: 04/25/18 Insertion time: 20:00 Results - Labs CBC & Chem 7: 05/04/18 02:32 05/04/18 02:32 Laboratory Results - last 24 hr 05/03/18 05/03/18 05/03/18 02:55 11:28 16:58 WBC RBC Hgb Hct MCV MCH MCHC RDW Plt Count MPV Prelim Diff (Auto) Neut % (Auto) Lymph % (Auto) [place] % (Auto) Eos % (Auto) Baso % (Auto) Neut # (Auto) Lymph # (Auto) [place] # (Auto) Eos # (Auto) Baso # (Auto) WBC Differential Manual diff final Diff Scan Seg Neuts % (Manual) 57 Band Neuts % (Manual) 4 Lymphocytes % (Manual) 32 Monocytes % (Manual) 3 Eosinophils % (Manual) 3 Metamyelocytes % (Man) 1 Abs Neuts (Manual) 6.7 Differential Comment Platelet Estimate Low L Platelet Morphology Normal Ovalocytes 2+ H Sodium Potassium Chloride Carbon Dioxide Anion Gap BUN Creatinine Estimated GFR POC Glucose 168 H 135 H Random Glucose Calcium Phosphorus Magnesium Total Bilirubin AST ALT Alkaline Phosphatase Total Protein Albumin TSH Free T4 05/03/18 05/04/18 05/04/18 20:48 02:32 02:32 WBC 12.4 H RBC 4.55 Hgb 8.8 L Hct 27.9 L MCV 61.4 L MCH 19.5 L MCHC 31.7 L RDW 19.1 H Plt Count 89 L MPV 8.4 Prelim Diff (Auto) Slide review pending Neut % (Auto) 66.2 Lymph % (Auto) 30.3 [place] % (Auto) 1.9 Eos % (Auto) 1.6 Baso % (Auto) 0.0 Neut # (Auto) 8.2 H Lymph # (Auto) 3.7 [place] # (Auto) 0.2 Eos # (Auto) 0.2 Baso # (Auto) 0.0 WBC Differential . Diff Scan Auto diff confirmed Seg Neuts % (Manual) Band Neuts % (Manual) Lymphocytes % (Manual) Monocytes % (Manual) Eosinophils % (Manual) Metamyelocytes % (Man) Abs Neuts (Manual) Differential Comment . Platelet Estimate Low L Platelet Morphology Ovalocytes 1+ H Sodium 146 H Potassium 4.1 Chloride 110 H Carbon Dioxide 28.3 Anion Gap 8 BUN 44 H Creatinine 1.42 H Estimated GFR 48 L POC Glucose 259 H Random Glucose 202 H Calcium 7.6 L Phosphorus 2.6 Magnesium 1.8 Total Bilirubin 0.2 AST 11 L ALT 18 Alkaline Phosphatase 72 Total Protein 4.6 L D Albumin 1.8 L TSH 0.511 Free T4 1.43 05/04/18 09:01 WBC RBC Hgb Hct MCV MCH MCHC RDW Plt Count MPV Prelim Diff (Auto) Neut % (Auto) Lymph % (Auto) [place] % (Auto) Eos % (Auto) Baso % (Auto) Neut # (Auto) Lymph # (Auto) [place] # (Auto) Eos # (Auto) Baso # (Auto) WBC Differential Diff Scan Seg Neuts % (Manual) Band Neuts % (Manual) Lymphocytes % (Manual) Monocytes % (Manual) Eosinophils % (Manual) Metamyelocytes % (Man) Abs Neuts (Manual) Differential Comment Platelet Estimate Platelet Morphology Ovalocytes Sodium Potassium Chloride Carbon Dioxide Anion Gap BUN Creatinine Estimated GFR POC Glucose 163 H Random Glucose Calcium Phosphorus Magnesium Total Bilirubin AST ALT Alkaline Phosphatase Total Protein Albumin TSH Free T4 Microbiology 04/29/18 03:23 Blood - Peripheral Aerobic Blood Culture - Preliminary No growth in 4 days 04/29/18 03:23 Blood - Peripheral Anaerobic Blood Culture - Preliminary No growth in 4 days 04/29/18 03:15 Blood - Peripheral Aerobic Blood Culture - Preliminary No growth in 4 days 04/29/18 03:15 Blood - Peripheral Anaerobic Blood Culture - Preliminary No growth in 4 days - Imaging Chest X-Ray 04/25/18 18:59 CONCLUSION: 1. Bibasilar patchiness consistent with atelectasis and/or infiltrates. 2. Cardiomegaly. Chest X-Ray 04/26/18 11:03 CONCLUSION: Central line placement as above. Chest X-Ray 04/27/18 06:00 CONCLUSION: Mild consolidation and small effusions at each base, slightly worse in the interim. Chest X-Ray 04/28/18 00:00 Cardiomegaly and aortic calcification noted. There is patchy right basilar airspace disease noted. There is mild atelectasis at the left base. Cannot exclude small effusions. CONCLUSION: Basilar airspace disease. Head CT 04/29/18 00:00 CONCLUSION: 1. Stable appearance of the brain. . - Procedures Date of procedure: 04/26/18 Pre-op diagnosis: septic shock Post-op diagnosis: same Procedure: US guided RIJ central line Central line checklist completed, timeout completed. I wore a surgical cap, mask with protective eyewear, full gown and sterile gloves throughout the procedure. Right neck region was prepped using chlorhexidine scrub and draped in sterile fashion. The right IJ was identified using the ultrasound. Anesthesia was achieved over the vein using 1% lidocaine. The introducer needle was inserted into the right IJ under direct ultrasound visualization. Venous blood was withdrawn. The syringe was removed and a guidewire was advanced into the introducer needle. A small incision was made at the skin surface with a scalpel and the introducer needle was exchanged for a dilator over the guidewire. After appropriate dilation was obtained, the dilator was exchanged over the wire for a triple lumen, 7F, antibiotic coated central venous catheter. The wire was removed and the catheter was sutured in place at 18 cm. A sterile central line dressing was placed over the catheter at the insertion site. The patient tolerated the procedure without any hemodynamic compromise. At time of procedure completion, all ports aspirated and flushed properly. Post- procedure chest x-ray is pending at this time. Anesthesia: local Surgeon: Radha Nance Estimated blood loss (mL): 1 Pathology: none sent Condition: critical Disposition: ICU Documented By: Radha Nance MD Assessment and Plan - Plan Atrial fibrillation / Flutter with RVR History of hypertension -rate uncontrolled. Give additional dose of Metoprolol now. Transfer patient. Begin on Cardizem drip. Hold po Cardizem. -Rate had increased on Cardizem to 15 mg/h -Cardiology following, appreciate assistance -continue on po amiodarone and metoprolol -Continue Eliquis -Patient is on chronic prednisone which was placed on hold and started stress dose steroids 100 mg hydrocortisone IV every 8 hours on 04/26. Tapered down and DC. However patient with wheezing on 04/28 and started on solumedrol tapered. -Patient had Cardizem increased orally--to be weaned off Cardizem drip today Septic shock Gram-negative bacteremia, E coli UTI, Ecoli -repeat blood cx neg -ID following, on IV Ceftriaxone -IV fluid hydration, reduce maintenance fluid rate to 50 mL/h Acute kidney failure -BUN/creatinine improving with aggressive hydration -CMP in a.m., continue to use IV fluid to 50 mL/h COPD Chronic respiratory failure O2 dependent -DuoNeb scheduled and as needed -Patient is on chronic prednisone which was placed on hold and started stress dose steroids 100 mg hydrocortisone IV every 8 hours on 04/26. Tapered down and DC. However patient with wheezing on 04/28 and started on solumedrol taper. Diabetes mellitus -Hold metformin while in the ICU -patient on Levemir 10u BID but has been refusing -Insulin sliding scale Monitor sugars BPH Urinary retention -continue on Flomax -Evaluated by Urology. Has fajardo at this time. Continue fajardo at DC . To follow up as OP with urology We will need to go home with Fajardo catheter Increase activity A.m. labs If remains stable transfer out of ICU later today or tomorrow Proph: GI and DVT prophylaxis -IV famotidine and Eliquis Code Status: Full code Discussed Condition With: RN and patient Discharge Planning: Pending improvement of heart rate and improvement of breathing and pneumonia and UTI
[2018-05-04 16:08] LABS: Hemoglobin A1c 9.6 % (4.3-6.0)
--- NOTE | 2018-05-04 17:46 | P.PNCA ---
Subjective Interval history: No events overnight Heart rates controlled, sinus rhythm Cardizem drip at 2.5 mg/hr Feels breathing is better overall Physical Exam Vital signs: Vital Signs 05/03/18 18:00 05/03/18 18:05 05/03/18 19:00 Temperature Pulse Rate 63 59 L 54 L Respiratory Rate 25 H 28 H 25 H Blood Pressure 128/58 L 125/58 L Pulse Oximetry 99 98 99 05/03/18 20:00 05/03/18 20:01 05/03/18 20:04 Temperature 98.6 F Pulse Rate 55 L 54 L 55 L Respiratory Rate 24 21 24 Blood Pressure 128/62 128/62 Pulse Oximetry 99 99 05/03/18 21:00 05/03/18 22:00 05/03/18 22:01 Temperature Pulse Rate 61 67 62 Respiratory Rate 23 19 13 Blood Pressure 140/63 167/71 H Pulse Oximetry 96 97 96 05/03/18 23:00 05/03/18 23:01 05/04/18 00:00 Temperature 98.9 F Pulse Rate 61 61 64 Respiratory Rate 16 15 14 Blood Pressure 133/61 159/70 H Pulse Oximetry 98 98 99 05/04/18 00:01 05/04/18 01:00 05/04/18 02:00 Temperature Pulse Rate 63 63 57 L Respiratory Rate 16 18 111 H Blood Pressure 159/70 H 180/72 H Pulse Oximetry 99 98 98 05/04/18 02:01 05/04/18 03:00 05/04/18 04:00 Temperature 99 F Pulse Rate 56 L 56 L 59 L Respiratory Rate 97 H 99 H 128 H Blood Pressure 127/60 129/60 157/69 H Pulse Oximetry 98 92 L 94 L 05/04/18 04:01 05/04/18 05:00 05/04/18 05:01 Temperature Pulse Rate 59 L 59 L 57 L Respiratory Rate 0 L 82 H 65 H Blood Pressure 147/65 H 150/67 H Pulse Oximetry 95 94 L 94 L 05/04/18 06:00 05/04/18 07:00 05/04/18 07:01 Temperature Pulse Rate 60 62 61 Respiratory Rate 88 H 85 H 100 H Blood Pressure 148/67 H 137/64 Pulse Oximetry 92 L 93 L 93 L 05/04/18 08:00 05/04/18 08:01 05/04/18 08:22 Temperature 98.0 F Pulse Rate 66 63 Respiratory Rate 70 H 108 H Blood Pressure 162/72 H 162/72 H Pulse Oximetry 95 95 93 L 05/04/18 09:00 05/04/18 10:00 05/04/18 11:00 Temperature Pulse Rate 68 68 65 Respiratory Rate 29 H 107 H 90 H Blood Pressure 150/69 H 165/72 H Pulse Oximetry 95 96 96 05/04/18 11:01 05/04/18 12:00 05/04/18 13:00 Temperature 96.8 F L Pulse Rate 66 63 62 Respiratory Rate 125 H 19 47 H Blood Pressure 145/65 H 155/67 H Pulse Oximetry 96 94 L 100 05/04/18 13:01 05/04/18 14:00 05/04/18 15:00 Temperature Pulse Rate 62 55 L 61 Respiratory Rate 48 H 26 H 44 H Blood Pressure 129/69 125/58 L 129/60 Pulse Oximetry 100 98 96 05/04/18 16:00 Temperature 98.5 F Pulse Rate 57 L Respiratory Rate 22 Blood Pressure 134/62 Pulse Oximetry 97 Intake & Output 05/03/18 05/04/18 05/04/18 18:59 06:59 18:59 Intake Total 1085 / 1085 524 / 524 Output Total 400 / 400 1800 / 1800 Balance 685 / 685 -1276 / -1276 Intake: IV 125 / 125 Cardizem Inj 125 MG In NS Inj 125 / 125 100 ML @ 5 MG/HR 5 mls/hr IV. CONT TITRATE PRN Rx#:[id number] Oral 960 / 960 250 / 250 Other 274 / 274 Output: Urine Amount (Catheter) 100 / 100 1800 / 1800 Indwelling Temp Sensing 100 / 100 1800 / 1800 Catheter Stool Amount (Stoma) 300 / 300 Pre-Hospital: Left Lower 300 / 300 Abdomen Other: # Urine Diapers 3 Date of Last Bowel Movement 05/02/18 05/03/18 Narrative: GENERAL: WDWN obese male patient, not in any acute distress. Awake and alert. SKIN: Warm and dry. HEAD: Atraumatic. Normocephalic. EYES: Pupils equal and round. No scleral icterus. No injection or drainage. ENT: No nasal bleeding or discharge. Mucous membranes pink and moist. NECK: Trachea midline. No JVD. CARDIOVASCULAR: RRR S1-S2 no S3 or S4 RESPIRATORY: No accessory muscle use. Diminished bilaterally. Breath sounds equal bilaterally. GASTROINTESTINAL: Abdomen soft, non-tender, nondistended. +BS. GENITOURINARY: Barker in place with clear yellow urine in bag. Barker catheter in place MUSCULOSKELETAL: Extremities without clubbing or cyanosis. Trace to 1+ BLE edema. No obvious deformities. NEUROLOGICAL: Awake and alert. No obvious cranial nerve deficits. Motor grossly within normal limits. Able to move all extremities spontaneously. Normal speech. PSYCHIATRIC: Appropriate mood and affect; insight and judgment normal. Barker catheter in place - Urinary Catheter Management Indwelling Temp Sensing Catheter Cath placed during this visit: yes Reason for continuing: Hourly intake/output Insertion date: 04/25/18 Insertion time: 20:00 Assessment and Plan - Assessment (1) Afib Code(s): I48.91 - Unspecified atrial fibrillation Status: Acute (2) Thrombocytopenia Code(s): D69.6 - Thrombocytopenia, unspecified Status: Acute (3) Bacteremia Code(s): R78.81 - Bacteremia Status: Acute (4) Obesity Code(s): E66.9 - Obesity, unspecified Status: Acute (5) Renal insufficiency Code(s): N28.9 - Disorder of kidney and ureter, unspecified Status: Acute (6) Sepsis Code(s): A41.9 - Sepsis, unspecified organism Status: Acute (7) Acute UTI Code(s): N39.0 - Urinary tract infection, site not specified Status: Acute (8) CHF (congestive heart failure) Code(s): I50.9 - Heart failure, unspecified Status: Acute - Plan 1) AFib/Flutter with RVR Converted to sinus rhythm again Amio PO Most likely potentiated by UTI/Bacteremia Cardizem drip off now Cardizem PO 2) Con't on Metoprolol Coreg stopped, should not be on both 3) Thrombocytopenia May be due to sepsis, getting better Will continue on Eliquis, but if further drop in Plts Eliquis will need to be stopped 4) If further episodes of AFib with RVR, may need Dr. Pope to evaluate 5) Agree with out of the unit tomorrow (6) Sepsis Qualifiers: Sepsis type: sepsis due to unspecified organism Qualified Code(s): A41.9 - Sepsis, unspecified organism
--- NOTE | 2018-05-05 09:32 | P.PNIM ---
Subjective Interval history: 05-03 Patient remains on Cardizem drip went back into A. fib/ a flutter remains on Cardizem drip at 15 mg/h Discussed with RN and patient Dr. Mendiola is aware of the heart rate and meds have been adjusted Physical therapy and occupational therapy to eval and treat A.m. labs 05-04 Cardizem dose has been increased by Dr. Mendiola Try to wean off Cardizem drip Monitor today in ICU If stable transfer floor tomorrow A.m. labs Discussed with RN and patient Patient did not take all his medications last night 05-05 patient is refusing his medications today Discussed with RN and patient Patient appears quite distraught and depressed We will consult psychiatry for severe depression and not wanting to take any more of his medications We will get a.m. labs I believe patient refused his labs today and refused his medications Is still a full code We will ask palliative care to consult also EXPLAINED NEED TO TAKE MEDICATIONS SO HE CAN LEAVE THE HOSPITAL Physical Exam Vital signs: Vital Signs 05/04/18 10:00 05/04/18 11:00 05/04/18 11:01 Temperature Pulse Rate 68 65 66 Respiratory Rate 107 H 90 H 125 H Blood Pressure 165/72 H 145/65 H Pulse Oximetry 96 96 96 05/04/18 12:00 05/04/18 13:00 05/04/18 13:01 Temperature 96.8 F L Pulse Rate 63 62 62 Respiratory Rate 19 47 H 48 H Blood Pressure 155/67 H 129/69 Pulse Oximetry 94 L 100 100 05/04/18 14:00 05/04/18 15:00 05/04/18 16:00 Temperature 98.5 F Pulse Rate 55 L 61 57 L Respiratory Rate 26 H 44 H 22 Blood Pressure 125/58 L 129/60 134/62 Pulse Oximetry 98 96 97 05/04/18 17:00 05/04/18 18:00 05/04/18 19:00 Temperature Pulse Rate 58 L 59 L 57 L Respiratory Rate 19 24 28 H Blood Pressure 131/60 139/64 135/61 Pulse Oximetry 96 97 94 L 05/04/18 19:31 05/04/18 20:00 05/04/18 21:00 Temperature 98.5 F Pulse Rate 57 L 61 66 Respiratory Rate 24 25 H 72 H Blood Pressure 137/66 127/60 Pulse Oximetry 95 97 96 05/04/18 22:00 05/04/18 22:01 05/04/18 23:00 Temperature Pulse Rate 70 72 66 Respiratory Rate 18 15 15 Blood Pressure 154/67 H 117/58 L Pulse Oximetry 99 100 98 05/05/18 00:00 05/05/18 01:00 05/05/18 02:00 Temperature 98.0 F Pulse Rate 62 63 66 Respiratory Rate 16 107 H 142 H Blood Pressure 119/58 L 125/57 L Pulse Oximetry 97 97 97 05/05/18 02:01 05/05/18 03:00 05/05/18 04:00 Temperature 98.4 F Pulse Rate 65 66 72 Respiratory Rate 127 H 28 H 77 H Blood Pressure 143/64 H 130/60 149/67 H Pulse Oximetry 97 95 92 L 05/05/18 06:00 Temperature Pulse Rate 71 Respiratory Rate 12 Blood Pressure Pulse Oximetry Intake & Output 05/04/18 05/05/18 05/05/18 18:59 06:59 18:59 Intake Total 100 / 100 945 / 945 Output Total 2400 / 2400 75 / 75 Balance -2300 / -2300 870 / 870 Weight 113 kg Intake: IV 100 / 100 225 / 225 Cardizem Inj 125 MG In NS Inj 125 / 125 100 ML @ 5 MG/HR 5 mls/hr IV. CONT TITRATE PRN Rx#:[id number] Rocephin Inj 2,000 MG In NS Inj 100 / 100 100 / 100 100 ML @ 200 mls/hr IV.SIG Q24H VIJAYA Rx#:[id number] Oral 720 / 720 Output: Urine 75 / 75 Urine Amount (Catheter) 1400 / 1400 Indwelling Temp Sensing 1400 / 1400 Catheter Stool Amount (Stoma) 1000 / 1000 Pre-Hospital: Left Lower 1000 / 1000 Abdomen Other: # Incontinent Voids 2 Date of Last Bowel Movement 05/04/18 05/04/18 # Bowel Movements 0 Narrative: GENERAL: WDWN obese male patient, not in any acute distress. Awake and alert. Appears distraught and depressed at this time SKIN: Warm and dry. HEAD: Atraumatic. Normocephalic. EYES: Pupils equal and round. No scleral icterus. No injection or drainage. ENT: No nasal bleeding or discharge. Mucous membranes pink and moist. NECK: Trachea midline. No JVD. CARDIOVASCULAR: IRRR S1-S2 no S3 or S4 RESPIRATORY: No accessory muscle use. Diminished bilaterally. Breath sounds equal bilaterally. GASTROINTESTINAL: Abdomen soft, non-tender, nondistended. +BS. GENITOURINARY: Fajardo in place with clear yellow urine in bag. Fajardo catheter in place MUSCULOSKELETAL: Extremities without clubbing or cyanosis. Trace to 1+ BLE edema. No obvious deformities. NEUROLOGICAL: Awake and alert. No obvious cranial nerve deficits. Motor grossly within normal limits. Able to move all extremities spontaneously. Normal speech. PSYCHIATRIC: INAppropriate mood and affect; insight and judgment ABnormal. Fajardo catheter in place - Urinary Catheter Management Indwelling Temp Sensing Catheter Cath placed during this visit: yes Reason for continuing: Hourly intake/output Insertion date: 04/25/18 Insertion time: 20:00 Results - Labs CBC & Chem 7: 05/04/18 02:32 05/04/18 02:32 Laboratory Results - last 24 hr 05/04/18 05/04/18 05/04/18 02:32 11:48 20:27 POC Glucose 162 H 183 H Hemoglobin A1c 9.6 H Microbiology 04/29/18 03:23 Blood - Peripheral Aerobic Blood Culture - Final No growth in 5 days 04/29/18 03:23 Blood - Peripheral Anaerobic Blood Culture - Final No growth in 5 days 04/29/18 03:15 Blood - Peripheral Aerobic Blood Culture - Final No growth in 5 days 04/29/18 03:15 Blood - Peripheral Anaerobic Blood Culture - Final No growth in 5 days - Imaging Chest X-Ray 04/25/18 18:59 CONCLUSION: 1. Bibasilar patchiness consistent with atelectasis and/or infiltrates. 2. Cardiomegaly. Chest X-Ray 04/26/18 11:03 CONCLUSION: Central line placement as above. Chest X-Ray 04/27/18 06:00 CONCLUSION: Mild consolidation and small effusions at each base, slightly worse in the interim. Chest X-Ray 04/28/18 00:00 Cardiomegaly and aortic calcification noted. There is patchy right basilar airspace disease noted. There is mild atelectasis at the left base. Cannot exclude small effusions. CONCLUSION: Basilar airspace disease. Head CT 04/29/18 00:00 CONCLUSION: 1. Stable appearance of the brain. . - Procedures Date of procedure: 04/26/18 Pre-op diagnosis: septic shock Post-op diagnosis: same Procedure: US guided RIJ central line Central line checklist completed, timeout completed. I wore a surgical cap, mask with protective eyewear, full gown and sterile gloves throughout the procedure. Right neck region was prepped using chlorhexidine scrub and draped in sterile fashion. The right IJ was identified using the ultrasound. Anesthesia was achieved over the vein using 1% lidocaine. The introducer needle was inserted into the right IJ under direct ultrasound visualization. Venous blood was withdrawn. The syringe was removed and a guidewire was advanced into the introducer needle. A small incision was made at the skin surface with a scalpel and the introducer needle was exchanged for a dilator over the guidewire. After appropriate dilation was obtained, the dilator was exchanged over the wire for a triple lumen, 7F, antibiotic coated central venous catheter. The wire was removed and the catheter was sutured in place at 18 cm. A sterile central line dressing was placed over the catheter at the insertion site. The patient tolerated the procedure without any hemodynamic compromise. At time of procedure completion, all ports aspirated and flushed properly. Post- procedure chest x-ray is pending at this time. Anesthesia: local Surgeon: Radha Nance Estimated blood loss (mL): 1 Pathology: none sent Condition: critical Disposition: ICU Documented By: Radha Nance MD Assessment and Plan - Plan Atrial fibrillation / Flutter with RVR History of hypertension -rate uncontrolled. Give additional dose of Metoprolol now. Transfer patient. Begin on Cardizem drip. Hold po Cardizem. -Rate had increased on Cardizem to 15 mg/h -Cardiology following, appreciate assistance -continue on po amiodarone and metoprolol -Continue Eliquis -Patient is on chronic prednisone which was placed on hold and started stress dose steroids 100 mg hydrocortisone IV every 8 hours on 04/26. Tapered down and DC. However patient with wheezing on 04/28 and started on solumedrol tapered. -Patient had Cardizem increased orally--to be weaned off Cardizem drip today Septic shock Gram-negative bacteremia, E coli UTI, Ecoli -repeat blood cx neg -ID following, on IV Ceftriaxone -IV fluid hydration, reduce maintenance fluid rate to 50 mL/h Acute kidney failure -BUN/creatinine improving with aggressive hydration -CMP in a.m., continue to use IV fluid to 50 mL/h COPD Chronic respiratory failure O2 dependent -DuoNeb scheduled and as needed -Patient is on chronic prednisone which was placed on hold and started stress dose steroids 100 mg hydrocortisone IV every 8 hours on 04/26. Tapered down and DC. However patient with wheezing on 04/28 and started on solumedrol taper. Diabetes mellitus -Hold metformin while in the ICU -patient on Levemir 10u BID but has been refusing -Insulin sliding scale Monitor sugars BPH Urinary retention -continue on Flomax -Evaluated by Urology. Has fajardo at this time. Continue fajardo at DC . To follow up as OP with urology We will need to go home with Fajardo catheter Severe depression Noncompliance Patient is refusing his medications will ask psychiatry to consult Patient refusing lab work Need input from psychiatry We will consult palliative care also Increase activity A.m. labs If remains stable transfer out of ICU later today or tomorrow Proph: GI and DVT prophylaxis -IV famotidine and Eliquis Code Status: FULL CODE Discussed Condition With: RN AND PT Discharge Planning: Pending improvement of heart rate and improvement of breathing and pneumonia and UTI
[2018-05-05] MEDS: predniSONE 10 MG Tablet PO SCH (09:59)
[2018-05-05] MEDS: Senna/Docusate Sodium 8.6/50 MG Tablet PO SCH ×2 (09:59→20:25)
[2018-05-05] MEDS: Amiodarone 200 MG Tablet PO SCH ×2 (09:59→20:26)
[2018-05-05] MEDS: guaiFENesin 600 MG ER Tablet PO SCH ×2 (09:59→20:25)
[2018-05-05] MEDS: Metoprolol Tartrate 50 MG Tablet PO SCH ×3 (09:59→17:41)
[2018-05-05] MEDS: Lactobacillus Acidophilus/L. Spores Tablet PO SCH ×3 (09:59→18:27)
[2018-05-05] MEDS: Famotidine PF Inj 20 MG/2 ML Vial IV.PUSH SCH ×2 (10:00→20:25)
[2018-05-05] MEDS: dilTIAZem 30 MG Tablet PO SCH ×4 (10:00→20:25)
[2018-05-05] MEDS: Insulin NovoLOG Aspart Correctional Sugar Inj SQ SCH ×4 (10:01→20:58)
[2018-05-05] MEDS: Insulin Detemir Inj 1,000 UNIT/10 ML Vial SQ SCH ×2 (10:01→20:59)
--- NOTE | 2018-05-05 11:05 | P.PNID ---
Subjective Remarks: ID X cover for Phill Garcesevelin chart was reviewed is an 82 y/o CM who is a resident of [facility] under the care of Dr.Gerald Valente. Patient's past medical history is significant for COPD, history of respiratory failure in the past, muscle weakness, difficulty walking, obstructive uropathy, A. fib, hypertension, hyperlipidemia possible history of coronary artery disease. Patient reportedly also has a history of diabetes and is on insulin detemir as well as lispro at the [facility]. Of note he was admitted in December 2017 due to history of stool impaction, a colonoscopy revealed adenocarcinoma of the colon. Dr. Fry hematology oncology was consulted for abnormal CBC as well as diagnosis of adenocarcinoma. Upon review of Dr. Fry notes it appears that patient refused adjuvant chemotherapy and was offered a CT chest abdomen pelvis for staging in the hospital but refused to do so since he had one recently done as outpatient. I am unsure if the patient had any follow-up for the same. Patient was asked to take vitamin B12 supplement for possible B12 deficiency at that time. It appears that patient was recently treated for COPD exacerbation April 06, 2018 with prednisone possibly some antibiotics. Patient had a WBC count drawn on April 25, 2018 with a WBC count of 19.3 H&H of 9.7/30.4, platelets 87 his UA was abnormal and as there were budding yeast identified on urinalysis he was started on Diflucan by his primary care doctor Dr. Merrill at the [facility]. His creatinine was 3.57 his BUN was 121 glucose was 231 on the labs drawn on April 25, 2018. Due to worsening clinical condition while at the [facility] and labs patient was sent to the hospital for further evaluation. While in the emergency department WBC count was done which was at 26,000 he had a borderline low blood pressure and this was concerning for severe sepsis and therefore patient was admitted under the care of woven label designer. Overnight patient seems to have received some fluids, sepsis workup was initiated and empiric antibiotics were started. Blood cultures drawn and admission are positive for gram-negative rods and infectious disease is consulted for the evaluation and management of septic shock due to gram-negative sepsis. At the time of my evaluation patient is in the ICU on 10 mics of Levophed. Urine output okay. Currently not intubated. Patient appears to be alert oriented 3 appears to be hard of hearing but when questioned about the colostomy bag he does not know the details so there is likely a component of acute encephalopathy. PMHx: Afib Arthritis COPD (chronic obstructive pulmonary disease) Adenocarcinoma of the colon Diabetes mellitus HLD (hyperlipidemia) HTN (hypertension) Polyneuropathy PSHx: Laparoscopic sigmoid colectomy with end colectomy and colostomy in place in December 2017. Pathology consistent with adenocarcinoma of the colon. Mobilization of splenic flexure at the same time. Repair of umbilical hernia December 2017. Several nasal endoscopic procedures. H/O nasal sinusotomy History of ethmoidectomy. History of maxillary sinus so to me. History of umbilical hernia repair. Right knee arthroplasty as well as patellectomy. Status post laser cataract surgery of both eyes Overnight events reviewed with RN. Pt has been refusing medications IV and oral, refused any interventions. Psych consulted. Now agreeable to meds. No fever No rash No diarrhea Antibiotics: Ceftriaxone IV Lines: Line sites with no evidence of infection. Past Medical History: Reviewed. Allergies/Adverse Reactions: Allergies aspirin Allergy (Mild, Verified 03/25/18 20:32) HEART RATE INCREASES caffeine Allergy (Mild, Verified 03/25/18 20:32) HEART RATE INCREASES Objective Vital Signs 05/04/18 12:00 05/04/18 13:00 05/04/18 13:01 Temperature 96.8 F L Pulse Rate 63 62 62 Respiratory Rate 19 47 H 48 H Blood Pressure 155/67 H 129/69 Pulse Oximetry 94 L 100 100 05/04/18 14:00 05/04/18 15:00 05/04/18 16:00 Temperature 98.5 F Pulse Rate 55 L 61 57 L Respiratory Rate 26 H 44 H 22 Blood Pressure 125/58 L 129/60 134/62 Pulse Oximetry 98 96 97 05/04/18 17:00 05/04/18 18:00 05/04/18 19:00 Temperature Pulse Rate 58 L 59 L 57 L Respiratory Rate 19 24 28 H Blood Pressure 131/60 139/64 135/61 Pulse Oximetry 96 97 94 L 05/04/18 19:31 05/04/18 20:00 05/04/18 21:00 Temperature 98.5 F Pulse Rate 57 L 61 66 Respiratory Rate 24 25 H 72 H Blood Pressure 137/66 127/60 Pulse Oximetry 95 97 96 05/04/18 22:00 05/04/18 22:01 05/04/18 23:00 Temperature Pulse Rate 70 72 66 Respiratory Rate 18 15 15 Blood Pressure 154/67 H 117/58 L Pulse Oximetry 99 100 98 05/05/18 00:00 05/05/18 01:00 05/05/18 02:00 Temperature 98.0 F Pulse Rate 62 63 66 Respiratory Rate 16 107 H 142 H Blood Pressure 119/58 L 125/57 L Pulse Oximetry 97 97 97 05/05/18 02:01 05/05/18 03:00 05/05/18 04:00 Temperature 98.4 F Pulse Rate 65 66 72 Respiratory Rate 127 H 28 H 77 H Blood Pressure 143/64 H 130/60 149/67 H Pulse Oximetry 97 95 92 L 05/05/18 06:00 Temperature Pulse Rate 71 Respiratory Rate 12 Blood Pressure Pulse Oximetry Intake & Output 05/04/18 05/05/18 05/05/18 18:59 06:59 18:59 Intake Total 100 / 100 945 / 945 Output Total 2400 / 2400 75 / 75 Balance -2300 / -2300 870 / 870 Weight 113 kg Intake: IV 100 / 100 225 / 225 Cardizem Inj 125 MG In NS Inj 125 / 125 100 ML @ 5 MG/HR 5 mls/hr IV. CONT TITRATE PRN Rx#:[id number] Rocephin Inj 2,000 MG In NS Inj 100 / 100 100 / 100 100 ML @ 200 mls/hr IV.SIG Q24H VIJAYA Rx#:[id number] Oral 720 / 720 Output: Urine 75 / 75 Urine Amount (Catheter) 1400 / 1400 Indwelling Temp Sensing 1400 / 1400 Catheter Stool Amount (Stoma) 1000 / 1000 Pre-Hospital: Left Lower 1000 / 1000 Abdomen Other: # Incontinent Voids 2 Date of Last Bowel Movement 05/04/18 05/04/18 # Bowel Movements 0 04/29/18 03:23 Blood - Peripheral Aerobic Blood Culture - Final No growth in 5 days 04/29/18 03:23 Blood - Peripheral Anaerobic Blood Culture - Final No growth in 5 days 04/29/18 03:15 Blood - Peripheral Aerobic Blood Culture - Final No growth in 5 days 04/29/18 03:15 Blood - Peripheral Anaerobic Blood Culture - Final No growth in 5 days 04/27/18 10:35 Blood - Peripheral Aerobic Blood Culture - Final No growth in 5 days 04/27/18 10:35 Blood - Peripheral Anaerobic Blood Culture - Final No growth in 5 days 04/27/18 05:11 Blood - Peripheral Aerobic Blood Culture - Final No growth in 5 days 04/27/18 05:11 Blood - Peripheral Anaerobic Blood Culture - Final No growth in 5 days Lab - Hematology Results 05/03/18 05/04/18 02:55 02:32 WBC 12.4 H RBC 4.55 Hgb 8.8 L Hct 27.9 L MCV 61.4 L MCH 19.5 L MCHC 31.7 L RDW 19.1 H Plt Count 89 L MPV 8.4 Prelim Diff (Auto) Slide review pending Neut % (Auto) 66.2 Lymph % (Auto) 30.3 Dunn % (Auto) 1.9 Eos % (Auto) 1.6 Baso % (Auto) 0.0 Neut # (Auto) 8.2 H Lymph # (Auto) 3.7 Dunn # (Auto) 0.2 Eos # (Auto) 0.2 Baso # (Auto) 0.0 WBC Differential Manual diff final . Diff Scan Auto diff confirmed Seg Neuts % (Manual) 57 Band Neuts % (Manual) 4 Lymphocytes % (Manual) 32 Monocytes % (Manual) 3 Eosinophils % (Manual) 3 Metamyelocytes % (Man) 1 Abs Neuts (Manual) 6.7 Differential Comment . Platelet Estimate Low L Low L Platelet Morphology Normal Ovalocytes 2+ H 1+ H Lab - Chemistry Results 05/03/18 05/03/18 05/03/18 11:28 16:58 20:48 Sodium Potassium Chloride Carbon Dioxide Anion Gap BUN Creatinine Estimated GFR POC Glucose 168 H 135 H 259 H Random Glucose Hemoglobin A1c Calcium Phosphorus Magnesium Total Bilirubin AST ALT Alkaline Phosphatase Total Protein Albumin TSH Free T4 05/04/18 05/04/18 05/04/18 02:32 02:32 09:01 Sodium 146 H Potassium 4.1 Chloride 110 H Carbon Dioxide 28.3 Anion Gap 8 BUN 44 H Creatinine 1.42 H Estimated GFR 48 L POC Glucose 163 H Random Glucose 202 H Hemoglobin A1c 9.6 H Calcium 7.6 L Phosphorus 2.6 Magnesium 1.8 Total Bilirubin 0.2 AST 11 L ALT 18 Alkaline Phosphatase 72 Total Protein 4.6 L D Albumin 1.8 L TSH 0.511 Free T4 1.43 05/04/18 05/04/18 11:48 20:27 Sodium Potassium Chloride Carbon Dioxide Anion Gap BUN Creatinine Estimated GFR POC Glucose 162 H 183 H Random Glucose Hemoglobin A1c Calcium Phosphorus Magnesium Total Bilirubin AST ALT Alkaline Phosphatase Total Protein Albumin TSH Free T4 Imaging: ITS Impressions Chest X-Ray 04/28/18 00:00 Cardiomegaly and aortic calcification noted. There is patchy right basilar airspace disease noted. There is mild atelectasis at the left base. Cannot exclude small effusions. CONCLUSION: Basilar airspace disease. Head CT 04/29/18 00:00 CONCLUSION: 1. Stable appearance of the brain. . Physical Exam: GENERAL: Obese well-developed, not in acute distress SKIN: Cool and dry, no generalized rash HEAD: Atraumatic. Normocephalic. No temporal or scalp tenderness. EYES: Pupils equal round and reactive. Scleral icterus. No injection or drainage. No petechia ENT: Nothing abnormal detected NECK: Trachea midline. Supple, nontender, no meningeal signs. CARDIOVASCULAR: HS audible. RESPIRATORY: Clear to auscultation bilaterally. GASTROINTESTINAL: Abdomen soft nontender. MUSCULOSKELETAL: Extremities without clubbing, cyanosis. NEUROLOGICAL: Alert oriented 3. Nonfocal. Psych cooperative IV line sites ok. Assessment and Plan - Plan Septic shock Gram-negative bacteremia, E.coli - repeat blood clx NGTD E.coli UTI Bibasilar infiltrates atelectasis versus possible aspiration pneumonia Likely source . Given history of colon cancer would be concerned about GI as a possible source. COPD Congestive heart failure Diabetes mellitus poorly controlled Acute renal failure likely sepsis but also has a history of BPH. Acute metabolic encephalopathy likely secondary to sepsis no known prior history of dementia. Thrombocytopenia likely secondary to sepsis. Recommendations Continue Ceftriaxone IV (05/10/2018 tentative stop date). If QT interval ok on repeat EKG and Dr.Peterson raines pt to receive Levaquin ok to transition to oral if patient compliant with oral medications. Follow cultures follow clinically. Will sign off please call back if any change in clinical condition or questions.
--- NOTE | 2018-05-05 12:47 | P.PNCA ---
Subjective Interval history: No events overnight Refusing meds this morning but finally took them Physical Exam Vital signs: Vital Signs 05/04/18 13:00 05/04/18 13:01 05/04/18 14:00 Temperature Pulse Rate 62 62 55 L Respiratory Rate 47 H 48 H 26 H Blood Pressure 129/69 125/58 L Pulse Oximetry 100 100 98 05/04/18 15:00 05/04/18 16:00 05/04/18 17:00 Temperature 98.5 F Pulse Rate 61 57 L 58 L Respiratory Rate 44 H 22 19 Blood Pressure 129/60 134/62 131/60 Pulse Oximetry 96 97 96 05/04/18 18:00 05/04/18 19:00 05/04/18 19:31 Temperature Pulse Rate 59 L 57 L 57 L Respiratory Rate 24 28 H 24 Blood Pressure 139/64 135/61 Pulse Oximetry 97 94 L 95 05/04/18 20:00 05/04/18 21:00 05/04/18 22:00 Temperature 98.5 F Pulse Rate 61 66 70 Respiratory Rate 25 H 72 H 18 Blood Pressure 137/66 127/60 Pulse Oximetry 97 96 99 05/04/18 22:01 05/04/18 23:00 05/05/18 00:00 Temperature 98.0 F Pulse Rate 72 66 62 Respiratory Rate 15 15 16 Blood Pressure 154/67 H 117/58 L 119/58 L Pulse Oximetry 100 98 97 05/05/18 01:00 05/05/18 02:00 05/05/18 02:01 Temperature Pulse Rate 63 66 65 Respiratory Rate 107 H 142 H 127 H Blood Pressure 125/57 L 143/64 H Pulse Oximetry 97 97 97 05/05/18 03:00 05/05/18 04:00 05/05/18 06:00 Temperature 98.4 F Pulse Rate 66 72 71 Respiratory Rate 28 H 77 H 12 Blood Pressure 130/60 149/67 H Pulse Oximetry 95 92 L 05/05/18 08:00 Temperature Pulse Rate Respiratory Rate Blood Pressure Pulse Oximetry 97 Intake & Output 05/04/18 05/05/18 05/05/18 18:59 06:59 18:59 Intake Total 100 / 100 945 / 945 Output Total 2400 / 2400 75 / 75 Balance -2300 / -2300 870 / 870 Weight 113 kg Intake: IV 100 / 100 225 / 225 Cardizem Inj 125 MG In NS Inj 125 / 125 100 ML @ 5 MG/HR 5 mls/hr IV. CONT TITRATE PRN Rx#:[id number] Rocephin Inj 2,000 MG In NS Inj 100 / 100 100 / 100 100 ML @ 200 mls/hr IV.SIG Q24H VIJAYA Rx#:[id number] Oral 720 / 720 Output: Urine 75 / 75 Urine Amount (Catheter) 1400 / 1400 Indwelling Temp Sensing 1400 / 1400 Catheter Stool Amount (Stoma) 1000 / 1000 Pre-Hospital: Left Lower 1000 / 1000 Abdomen Other: # Incontinent Voids 2 Date of Last Bowel Movement 05/04/18 05/04/18 # Bowel Movements 0 Narrative: GENERAL: WDWN obese male patient, not in any acute distress. Awake and alert. Appears distraught and depressed at this time SKIN: Warm and dry. HEAD: Atraumatic. Normocephalic. EYES: Pupils equal and round. No scleral icterus. No injection or drainage. ENT: No nasal bleeding or discharge. Mucous membranes pink and moist. NECK: Trachea midline. No JVD. CARDIOVASCULAR: IRRR S1-S2 no S3 or S4 RESPIRATORY: No accessory muscle use. Diminished bilaterally. Breath sounds equal bilaterally. GASTROINTESTINAL: Abdomen soft, non-tender, nondistended. +BS. GENITOURINARY: Barker in place with clear yellow urine in bag. Barker catheter in place MUSCULOSKELETAL: Extremities without clubbing or cyanosis. Trace to 1+ BLE edema. No obvious deformities. NEUROLOGICAL: Awake and alert. No obvious cranial nerve deficits. Motor grossly within normal limits. Able to move all extremities spontaneously. Normal speech. PSYCHIATRIC: INAppropriate mood and affect; insight and judgment ABnormal. Barker catheter in place - Urinary Catheter Management Indwelling Temp Sensing Catheter Cath placed during this visit: yes Reason for continuing: Hourly intake/output Insertion date: 04/25/18 Insertion time: 20:00 Assessment and Plan - Assessment (1) Afib Code(s): I48.91 - Unspecified atrial fibrillation Status: Acute (2) Thrombocytopenia Code(s): D69.6 - Thrombocytopenia, unspecified Status: Acute (3) Bacteremia Code(s): R78.81 - Bacteremia Status: Acute (4) Obesity Code(s): E66.9 - Obesity, unspecified Status: Acute (5) Renal insufficiency Code(s): N28.9 - Disorder of kidney and ureter, unspecified Status: Acute (6) Sepsis Code(s): A41.9 - Sepsis, unspecified organism Status: Acute (7) Acute UTI Code(s): N39.0 - Urinary tract infection, site not specified Status: Acute (8) CHF (congestive heart failure) Code(s): I50.9 - Heart failure, unspecified Status: Acute - Plan 1) AFib/Flutter with RVR Converted to sinus rhythm again Amio PO Most likely potentiated by UTI/Bacteremia Cardizem drip off now Cardizem PO 2) Con't on Metoprolol Coreg stopped, should not be on both 3) Thrombocytopenia May be due to sepsis, getting better Will continue on Eliquis, but if further drop in Plts Eliquis will need to be stopped 4) If further episodes of AFib with RVR, may need Dr. Pope to evaluate 5) Agree with out of the unit when possible 6) Asked by ID about QTc and Levaquin No recent EKG Apparently patient refused the EKG (6) Sepsis Qualifiers: Sepsis type: sepsis due to unspecified organism Qualified Code(s): A41.9 - Sepsis, unspecified organism
--- NOTE | 2018-05-05 13:36 | P.CONPSY ---
Provisional Diagnosis Admission Date: April 25, 2018 20:22 [place] I.: Adjustment disorder with depressed mood vs major depressive disorder, History of Present Illness Service: CC Primary Care Provider: Yfn Myles MD Family Provider: Yfn Myles MD Chief Complaint: retention History of Present Illness: The patient is a 82-year-old man, domiciled with his daughter in [facility], retired, without no previous psychiatric history, no previous suicide attempts, no previous psychiatric hospitalizations, medical history of diabetes mellitus, BPH, hypertension, A. fib, he denies the use of alcohol and illegal drugs, who is hospitalized in the ICU due to atrial fibrillation/ Flutter with RVR, Septic shock, Acute kidney failure. Consulted to psychiatry to assess symptoms of depression. Chart reviewed. The case was discussed with primary medical attending Dr. Alatorre. On my psychiatric evaluation today the patient presents very irritable, oppositional, and stated that he has no request the services of a psychiatrist. The patient says that he is not crazy, he is actually insulted that his complaints and demands has been taken as coming from the crazy person. He says that everything is asking is to leave this place as soon as possible and to get better. The patient says that he understands that in order to get out of the ICU he needs to take his medications and comply but have to understand that being here is not very easy . He reports poor appetite, difficulty sleeping at night, sad mood, but he denies anhedonia, denies hopelessness and helplessness, he also denies suicidal ideation and homicidal ideation. The patient is fully oriented 3, no attention deficit, no fluctuation of consciousness present. I have offered him medication for depression, to improve appetite and improved sleep, the patient refuses to take any additional medication other than the medication that he needs to take for his medical conditions. The patient agrees that he will continue medical recommendations Review of Systems All other systems reviewed negative except as stated in HPI Psychiatric: Reports depression, Reports irritability PMFSH - History History Provided By: Patient, Medical Record - Medical History Medical History: Medical History (Last Reviewed 05/05/18 @ 09:17 by Carmel Henderson) Afib Arthritis COPD (chronic obstructive pulmonary disease) Colon cancer Diabetes mellitus HLD (hyperlipidemia) HTN (hypertension) Polyneuropathy - Surgical History Surgical History: Surgical History (Last Reviewed 05/05/18 @ 09:17 by Carmel Henderson) Colostomy in place H/O nasal sinusotomy History of ethmoidectomy History of umbilical hernia repair History of unicondylar arthroplasty of right knee Status post laser cataract surgery of both eyes - Family History Family History: Family History (Last Reviewed 05/05/18 @ 09:13 by Doris Couch) Father Motor vehicle accident Mother Old age - Tobacco History Second Hand Smoke Exposure: No Tobacco Use In Past 30 Days: No Smoking Status: Former smoker (Quit smoking 8 years ago) Tobacco Type: Cigarettes Smoking End Date: 2009 - Alcohol History How Often Do You Have a Drink Containing Alcohol: Never - Substance Use History Substance History: No History of Abuse, Unable to Obtain - Travel History Recent Travel in the [place] Within the Last 8 Weeks: No Recent Travel Out of the Country Within the Last 8 Weeks: No Medications and Allergies Active Medications: Active Medications Acetaminophen (Tylenol) 650 mg PO Q6H PRN PRN Reason: PAIN 1-10 AND/OR FEVER >101F Al Hydroxide/Mg Hydroxide (Milk Of Squlamarita Liq) 30 ml PO Q12H PRN PRN Reason: Mild Constipation Albuterol (Duoneb Neb (Prn)) 1 ampul NEB Q2HR NEB PRN PRN Reason: WHEEZING Albuterol (Duoneb Neb (Larry)) 1 ampul NEB Q6HR WHILE AWAKE NEB LARRY Last Admin: 05/05/18 10:02 Dose: Not Given Amiodarone HCl (Cordarone) 200 mg PO Q12HR LARRY Last Admin: 05/05/18 09:59 Dose: 200 mg Apixaban (Eliquis) 2.5 mg PO BID [facility] Last Admin: 05/05/18 09:59 Dose: 2.5 mg Bisacodyl (Dulcolax Supp) 10 mg RECTAL DAILY PRN PRN Reason: SEVERE CONSITIPATION Budesonide (Pulmocort Respule Neb) 0.5 mg NEB Q12HR NEB [facility] Last Admin: 05/05/18 10:02 Dose: Not Given Dextrose (D50w Vial) 50 ml IV.PUSH UNSCH PRN PRN Reason: PER HYPOGLYCEMIA PROTOCOL Diltiazem HCl (Cardizem) 30 mg PO QID [facility] Last Admin: 05/05/18 10:00 Dose: 30 mg Famotidine (Pepcid Pf Inj) 10 mg IV.PUSH Q12HR LARRY Last Admin: 05/05/18 10:00 Dose: 10 mg Glucagon (Glucagon Inj) 1 mg OTHER PRN PRN PRN Reason: for Hypoglycemia Protocol Guaifenesin (Mucinex Er) 600 mg PO BID [facility] Last Admin: 05/05/18 09:59 Dose: 600 mg Norepinephrine Bitartrate (Levophed-Dextrose 4 Mg/250 Ml Drip) 4 mg in 250 mls @ 7.5 mls/hr IV.SIG TITRATE PRN; Protocol PRN Reason: Per Protocol Last Titration: 04/26/18 20:00 Dose: 0 mcg/min, 0 mls/hr Sodium Chloride (Ns Inj) 1,000 mls @ 0 mls/hr IV.SIG BOLUS [facility] Last Infusion: 04/26/18 14:34 Dose: Infused Vasopressin 40 unit/ Sodium (Chloride) 100 mls @ 6 mls/hr IV.CONT CONT LARRY; Protocol Last Infusion: 05/04/18 22:19 Dose: 0 units/min, 0 mls/hr Amiodarone HCl 450 mg/ (Dextrose) 250 mls @ 33.33 mls/hr IV.CONT TITRATE PRN; Protocol PRN Reason: Per Protocol Last Titration: 05/04/18 22:19 Dose: 0 mg/min, 0 mls/hr Ceftriaxone Sodium 2,000 mg/ (Sodium Chloride) 100 mls @ 200 mls/hr IV.SIG Q24H LARRY Last Infusion: 05/04/18 22:19 Dose: Infused Diltiazem HCl 125 mg/ Sodium (Chloride) 125 mls @ 5 mls/hr IV.CONT TITRATE PRN ; Protocol PRN Reason: Per Protocol Last Titration: 05/04/18 22:19 Dose: Infused Insulin Aspart (Novolog Insulin [employer] Sugar Inj) 0 unit SQ ACHS LARRY; Protocol Last Admin: 05/05/18 13:29 Dose: Not Given Insulin Detemir (Levemir Inj) 10 unit SQ Q12HR LARRY Last Admin: 05/05/18 10:01 Dose: Not Given Ipratropium [place] (Atrovent Neb) 0.5 mg NEB Q2HR NEB PRN PRN Reason: Shortness Of Breath/Wheezing Last Admin: 04/27/18 08:41 Dose: 0.5 mg Lactobacillus Acidophilus (Lactinex) 1 tab PO TID [facility] Last Admin: 05/05/18 09:59 Dose: 1 tab Lactulose (Lactulose Liq) 30 ml PO DAILY PRN PRN Reason: SEVERE CONSITIPATION Metoclopramide HCl (Reglan Inj) 5 mg IV.PUSH Q6HR [facility]; Protocol Last Admin: 05/05/18 13:29 Dose: Not Given Metoprolol Tartrate (Lopressor) 50 mg PO TID [facility] Last Admin: 05/05/18 09:59 Dose: 50 mg Ondansetron HCl (Zofran Inj) 4 mg IV.PUSH Q6H PRN PRN Reason: NAUSEA OR VOMITING Last Admin: 05/05/18 04:32 Dose: 4 mg Oxycodone HCl (Roxicodone) 5 mg PO Q6H PRN PRN Reason: Pain 3 to 10 Last Admin: 05/05/18 10:00 Dose: 5 mg Prednisone (Deltasone) 10 mg PO DAILY [facility] Last Admin: 05/05/18 09:59 Dose: 10 mg Senna/Docusate Sodium (Krystin-Colace) 1 tab PO BID [facility] Last Admin: 05/05/18 09:59 Dose: 1 tab Sennosides (Senokot) 17.2 mg PO Q12H PRN PRN Reason: Moderate Constipation Sodium Chloride (Ns Flush) 2 ml IV.FLUSH BID [facility] Last Admin: 05/05/18 10:00 Dose: 2 ml Sodium Chloride (Ns Flush) 2 ml IV.FLUSH PRN PRN PRN Reason: FLUSH AFTER USING IV ACCESS Tamsulosin HCl (Flomax) 0.4 mg PO DAILY [facility] Last Admin: 05/05/18 09:59 Dose: 0.4 mg Terbutaline Sulfate (Brethine Inj) 1 mg SQ UNSCH PRN PRN Reason: For Extravasation Allergies Allergy/AdvReac Type Severity Reaction Status Date / Time aspirin Allergy Mild HEART RATE Verified 03/25/18 20:32 INCREASES caffeine Allergy Mild HEART RATE Verified 03/25/18 20:32 INCREASES Home Medications Medication Instructions Recorded Confirmed Type metoprolol tartrate 50 mg PO BID 03/12/18 04/25/18 History Exam Vital signs: Vital Signs 05/04/18 14:00 05/04/18 15:00 05/04/18 16:00 Temperature 98.5 F Pulse Rate 55 L 61 57 L Respiratory Rate 26 H 44 H 22 Blood Pressure 125/58 L 129/60 134/62 Pulse Oximetry 98 96 97 05/04/18 17:00 05/04/18 18:00 05/04/18 19:00 Temperature Pulse Rate 58 L 59 L 57 L Respiratory Rate 19 24 28 H Blood Pressure 131/60 139/64 135/61 Pulse Oximetry 96 97 94 L 05/04/18 19:31 05/04/18 20:00 05/04/18 21:00 Temperature 98.5 F Pulse Rate 57 L 61 66 Respiratory Rate 24 25 H 72 H Blood Pressure 137/66 127/60 Pulse Oximetry 95 97 96 05/04/18 22:00 05/04/18 22:01 05/04/18 23:00 Temperature Pulse Rate 70 72 66 Respiratory Rate 18 15 15 Blood Pressure 154/67 H 117/58 L Pulse Oximetry 99 100 98 05/05/18 00:00 05/05/18 01:00 05/05/18 02:00 Temperature 98.0 F Pulse Rate 62 63 66 Respiratory Rate 16 107 H 142 H Blood Pressure 119/58 L 125/57 L Pulse Oximetry 97 97 97 05/05/18 02:01 05/05/18 03:00 05/05/18 04:00 Temperature 98.4 F Pulse Rate 65 66 72 Respiratory Rate 127 H 28 H 77 H Blood Pressure 143/64 H 130/60 149/67 H Pulse Oximetry 97 95 92 L 05/05/18 06:00 05/05/18 08:00 Temperature Pulse Rate 71 Respiratory Rate 12 Blood Pressure Pulse Oximetry 97 Intake & Output 05/04/18 05/05/18 05/05/18 18:59 06:59 18:59 Intake Total 100 / 100 945 / 945 Output Total 2400 / 2400 75 / 75 Balance -2300 / -2300 870 / 870 Weight 113 kg Intake: IV 100 / 100 225 / 225 Cardizem Inj 125 MG In NS Inj 125 / 125 100 ML @ 5 MG/HR 5 mls/hr IV. CONT TITRATE PRN Rx#:[id number] Rocephin Inj 2,000 MG In NS Inj 100 / 100 100 / 100 100 ML @ 200 mls/hr IV.SIG Q24H LARRY Rx#:[id number] Oral 720 / 720 Output: Urine 75 / 75 Urine Amount (Catheter) 1400 / 1400 Indwelling Temp Sensing 1400 / 1400 Catheter Stool Amount (Stoma) 1000 / 1000 Pre-Hospital: Left Lower 1000 / 1000 Abdomen Other: # Incontinent Voids 2 Date of Last Bowel Movement 05/04/18 05/04/18 # Bowel Movements 0 Mental Status Examination Appearance: Appropriate Consciousness: Alert Orientation: x4 Motor Activity: Normal gait Speech: Unremarkable Language: Adequate Fund of Knowledge: Adequate Attention and Concentration: Adequate Memory: Unremarkable Mood: Oppositional Affect: Irritable Thought Process & Associations: Intact Thought Content: Appropriate Hallucination Type: None Delusion Type: None Suicidal Ideation: No Suicidal Plan: No Suicidal Intention: No Homicidal Ideation: No Homicidal Plan: No Homicidal Intention: No Insight: Fair Judgment: Impulsive Assessment and Plan - Assessment (1) Adjustment disorder Code(s): F43.20 - Adjustment disorder, unspecified Status: Acute - Plan Plan: Estimated LOS: [] days On psychiatric evaluation today I find a patient that is very oppositional, persistent and irritable. At the beginning refusing to cooperate with psychiatry stating that he does not have any psychiatric problem. He was able to be redirected, and he reports that he has been feeling sad, with difficulty sleeping, irritable, poor appetite, and generalized pessimism in the context of the length of hospitalization, and also with his acute medical condition. Patient reports that he would be happy if he would not be here. I offered him medication to improve his sleep, irritability and poor appetite, but he declined at this moment. He would really benefit of Remeron 15 mg at bedtime, medication could Help with mood, insomnia and appetite. Psychoeducation, motivation and support provided. Patient does not meet criteria for involuntary psychiatric admission. Is fully oriented 3 there is no gross cognitive impairment present at this moment. Justification for Continued Inpatient Stay: No admission indicated (1) Adjustment disorder Qualifiers: Adjustment disorder type: with depressed mood Qualified Code(s): F43.21 - Adjustment disorder with depressed mood
[2018-05-05 14:00] LABS: Baso % (Auto) 0.4 % (0.0-2.0); Eos # (Auto) 0.1 th/mm3 (0.0-0.4); Eos % (Auto) 0.7 % (0.0-4.0); Hematocrit 28.5 % (39.0-51.0); Hemoglobin 8.9 gm/dL (13.0-17.0); Lymph # (Auto) 3.1 th/mm3 (1.0-4.8); Lymph % (Auto) 29.2 % (9.0-44.0); Mean Corpuscular HGB Conc 31.3 % (32.0-36.0); Mean Corpuscular Hemoglobin 19.5 pg (27.0-34.0); Mean Corpuscular Volume 62.2 fL (80.0-100.0); Mean Platelet Volume 8.6 fL (7.0-11.0); Mono # (Auto) 0.3 th/mm3 (0.0-0.9); Mono % (Auto) 2.9 % (0.0-8.0); Neut # (Auto) 7.2 th/mm3 (1.8-7.7); Neut % (Auto) 66.8 % (16.0-70.0); Platelet Count 98 th/mm3 (150-450); Red Blood Count 4.58 mil/mm3 (4.50-5.90); Red Cell Distribution Width 18.9 % (11.6-17.2); White Blood Count 10.7 th/mm3 (4.0-11.0)
[2018-05-05 14:23] LABS: Alanine Aminotransferase 308 U/L (12-78); Albumin 1.9 g/dL (3.4-5.0); Alkaline Phosphatase 392 U/L (45-117); Anion Gap 9 meq/L (5-15); Aspartate Aminotransferase 252 U/L (15-37); Blood Urea Nitrogen 34 mg/dL (7-18); Calcium 7.9 mg/dL (8.5-10.1); Carbon Dioxide 24.6 meq/L (21.0-32.0); Chloride 108 meq/L (98-107); Glomerular Filtration Rate 43 mL/min (>89); Glucose,Random 180 mg/dL (74-106); Magnesium 1.7 mg/dL (1.5-2.5); Phosphorus 2.3 mg/dL (2.5-4.9); Potassium 4.5 meq/L (3.5-5.1); Sodium 142 meq/L (136-145); Total Protein 4.8 g/dL (6.4-8.2)
[2018-05-05 14:45] LABS: Ovalocytes 1+; Platelet Morphology Normal (Normal)
--- NOTE | 2018-05-05 16:33 | P.CONPAL ---
Consult Service: Palliative Care Requesting Physician: Edgard Alatorre Reason for Consult: a. To assist with evaluation and management of symptoms including: shortness of breath, weakness. b. To assist medical decision maker(s) with: better understanding of current medical conditions; weighing benefits/burdens of medical treatment options; making medical treatment decisions. Primary Care Provider: Yfn Myles MD History of Present Illness History of Present Illness: Mr. Lima is an 82 year old male with past medical history of CHF, hypertension, hyperlipidemia, COPD, atrial fibrillation, colon cancer status post colostomy, arthritis, polyneuropathy, diabetes, elevated BMI. Patient has a history: Adenocarcinoma status post surgical resection in December 2017. Patient was previously admitted 03/11/18 with acute kidney injury, respiratory failure on [place] vent, severe metabolic acidosis and hypotension. He was discharged to [facility] rehab on 04/06/18. Patient presented to [facility] emergency department again on 04/25/18 initially for evaluation of abnormal labs (WBC 19 with severe bandemia, BUN 120s , creatinine > 4), UTI. He was hypotensive and therefore admitted to ICU with UTI, sepsis. Blood and urine cultures were positive for E. Coli. Infectious disease, Dr. Pamela Gupta was consulted. Echocardiogram revealed EF 45-50%. CT head was done for altered mental status without acute abnormality. Cardiology, Dr. Mendiola was consulted Atrial fibrillation with RVR placed on Amiodarone drip now on oral meds. Urology, Dr. Cummings was consulted for urinary retention with recommendation to continued Barker and start Flomax. He remains in ICU. Creatinine now 1.42. Psychiatry was consulted on 05/05/18 because patient was refusing meds and tests. Dr. Cox, psychiatry evaluated patient and felt patient was capacitated to make his own health care decisions, not suicidal and did not meet criteria for psych admission. Palliative care was consulted to assist with further clarification of medical treatment goals. Upon my arrival he is smiling cooperative. He tells me he refused meds because he "does not feel they are making him any better." He verbalizes frustration with his failing health. He wants to get back to rehab, does not want to in the hospital. He wants to get better, but understands his health is failing despite his efforts. His "mind wants one thing and his body isn't cooperating." He elects NO CODE (DNR/DNI) which is consistent with last admission and goals of medical treatment. [place] DNR scanned into EMR from last admission, he confirms this is still in keeping with his wishes. He is open to hospice in the future if he does not improve or if condition worsens. Will continue to follow. For now he desires continued aggressive care short of NO CODE. . Function/Cognitive Trajectory: Patient has had ongoing trajectory of decline in the past few months. With repeat hospitalization, rehab. Decreased appetite, increased weakness now with inability to ambulate. Review of Systems Constitutional: Reports anorexia, Reports daytime sleepiness, Reports fatigue, Reports lack of energy, Reports weakness Eyes: Denies blind spots, Denies blurry vision, Denies bulging eyes, Denies change in vision, Denies double vision, Denies discharge, Denies dry eyes, Denies floaters, Denies irritation, Denies itchy eyes, Denies loss of vision, Denies pain, Denies requires corrective lenses, Denies sensitivity to light, Denies other Ears, Nose, Mouth, and Throat: Reports abnormal hearing (wears left hearing aide. ), Reports dry mouth, Reports poor balance Cardiovascular: Reports generalized swelling, Reports rapid, pounding, or irregular heartbeat, Reports shortness of breath, Reports shortness of breath with activity, Reports shortness of breath when lying down Respiratory: Reports shortness of breath, Reports shortness of breath with activity Gastrointestinal: Reports constipation Genitourinary: Reports other (retention) Musculoskeletal: Reports abnormal walking, Reports body aches, Reports stiffness Neurologic: Reports weakness Psychiatric: Reports anxiety, Reports change in appetite (decreased) Endocrine: Reports rapid, pounding, or irregular heartbeat Hematologic/Lymphatic: Reports easy bruising PMFSH - History History Provided By: Patient, Medical Record - Medical History Medical History: Medical History (Last Reviewed 05/05/18 @ 09:17 by Carmel Henderson) Afib Arthritis COPD (chronic obstructive pulmonary disease) Colon cancer Diabetes mellitus HLD (hyperlipidemia) HTN (hypertension) Polyneuropathy - Surgical History Surgical History: Surgical History (Last Reviewed 05/05/18 @ 09:17 by Carmel Henderson) Colostomy in place H/O nasal sinusotomy History of ethmoidectomy History of umbilical hernia repair History of unicondylar arthroplasty of right knee Status post laser cataract surgery of both eyes - Family History Family History: Family History (Last Reviewed 05/05/18 @ 09:13 by Doris Couch) Father Motor vehicle accident Mother Old age - Tobacco History Second Hand Smoke Exposure: No Tobacco Use In Past 30 Days: No Smoking Status: Former smoker (Quit smoking 8 years ago) Tobacco Type: Cigarettes Smoking End Date: 2009 - Alcohol History How Often Do You Have a Drink Containing Alcohol: Never - Substance Use History Substance History: No History of Abuse, Unable to Obtain - Travel History Recent Travel in the [facility] [place] Within the Last 8 Weeks: No Recent Travel Out of the Country Within the Last 8 Weeks: No Medications and Allergies Active Medications: Active Medications Acetaminophen (Tylenol) 650 mg PO Q6H PRN PRN Reason: PAIN 1-10 AND/OR FEVER >101F Al Hydroxide/Mg Hydroxide (Milk Of Magnmarita Liq) 30 ml PO Q12H PRN PRN Reason: Mild Constipation Albuterol (Duoneb Neb (Prn)) 1 ampul NEB Q2HR NEB PRN PRN Reason: WHEEZING Amiodarone HCl (Cordarone) 200 mg PO Q12HR [facility] Last Admin: 05/05/18 09:59 Dose: 200 mg Apixaban (Eliquis) 2.5 mg PO BID [facility] Last Admin: 05/05/18 09:59 Dose: 2.5 mg Bisacodyl (Dulcolax Supp) 10 mg RECTAL DAILY PRN PRN Reason: SEVERE CONSITIPATION Budesonide (Pulmocort Respule Neb) 0.5 mg NEB Q12HR NEB [facility] Last Admin: 05/05/18 10:02 Dose: Not Given Dextrose (D50w Vial) 50 ml IV.PUSH UNSCH PRN PRN Reason: PER HYPOGLYCEMIA PROTOCOL Diltiazem HCl (Cardizem) 30 mg PO QID [facility] Last Admin: 05/05/18 13:54 Dose: Not Given Famotidine (Pepcid Pf Inj) 10 mg IV.PUSH Q12HR [facility] Last Admin: 05/05/18 10:00 Dose: 10 mg Glucagon (Glucagon Inj) 1 mg OTHER PRN PRN PRN Reason: for Hypoglycemia Protocol Guaifenesin (Mucinex Er) 600 mg PO BID [facility] Last Admin: 05/05/18 09:59 Dose: 600 mg Norepinephrine Bitartrate (Levophed-Dextrose 4 Mg/250 Ml Drip) 4 mg in 250 mls @ 7.5 mls/hr IV.SIG TITRATE PRN; Protocol PRN Reason: Per Protocol Last Titration: 04/26/18 20:00 Dose: 0 mcg/min, 0 mls/hr Sodium Chloride (Ns Inj) 1,000 mls @ 0 mls/hr IV.SIG BOLUS VIJAYA Last Infusion: 04/26/18 14:34 Dose: Infused Vasopressin 40 unit/ Sodium (Chloride) 100 mls @ 6 mls/hr IV.CONT CONT VIJAYA; Protocol Last Infusion: 05/04/18 22:19 Dose: 0 units/min, 0 mls/hr Amiodarone HCl 450 mg/ (Dextrose) 250 mls @ 33.33 mls/hr IV.CONT TITRATE PRN; Protocol PRN Reason: Per Protocol Last Titration: 05/04/18 22:19 Dose: 0 mg/min, 0 mls/hr Ceftriaxone Sodium 2,000 mg/ (Sodium Chloride) 100 mls @ 200 mls/hr IV.SIG Q24H VIJAYA Last Infusion: 05/04/18 22:19 Dose: Infused Diltiazem HCl 125 mg/ Sodium (Chloride) 125 mls @ 5 mls/hr IV.CONT TITRATE PRN ; Protocol PRN Reason: Per Protocol Last Titration: 05/04/18 22:19 Dose: Infused Insulin Aspart (Novolog Insulin Correctional Sugar Inj) 0 unit SQ ACHS VIJAYA; Protocol Last Admin: 05/05/18 13:29 Dose: Not Given Insulin Detemir (Levemir Inj) 10 unit SQ Q12HR VIJAYA Last Admin: 05/05/18 10:01 Dose: Not Given Ipratropium [place] (Atrovent Neb) 0.5 mg NEB Q2HR NEB PRN PRN Reason: Shortness Of Breath/Wheezing Last Admin: 04/27/18 08:41 Dose: 0.5 mg Lactobacillus Acidophilus (Lactinex) 1 tab PO TID VIJAYA Last Admin: 05/05/18 13:53 Dose: Not Given Lactulose (Lactulose Liq) 30 ml PO DAILY PRN PRN Reason: SEVERE CONSITIPATION Metoclopramide HCl (Reglan Inj) 5 mg IV.PUSH Q6HR VIJAYA; Protocol Last Admin: 05/05/18 13:29 Dose: Not Given Metoprolol Tartrate (Lopressor) 50 mg PO TID [facility] Last Admin: 05/05/18 13:53 Dose: Not Given Ondansetron HCl (Zofran Inj) 4 mg IV.PUSH Q6H PRN PRN Reason: NAUSEA OR VOMITING Last Admin: 05/05/18 04:32 Dose: 4 mg Oxycodone HCl (Roxicodone) 5 mg PO Q6H PRN PRN Reason: Pain 3 to 10 Last Admin: 05/05/18 10:00 Dose: 5 mg Prednisone (Deltasone) 10 mg PO DAILY [facility] Last Admin: 05/05/18 09:59 Dose: 10 mg Senna/Docusate Sodium (Krystin-Colace) 1 tab PO BID [facility] Last Admin: 05/05/18 09:59 Dose: 1 tab Sennosides (Senokot) 17.2 mg PO Q12H PRN PRN Reason: Moderate Constipation Sodium Chloride (Ns Flush) 2 ml IV.FLUSH BID [facility] Last Admin: 05/05/18 10:00 Dose: 2 ml Sodium Chloride (Ns Flush) 2 ml IV.FLUSH PRN PRN PRN Reason: FLUSH AFTER USING IV ACCESS Tamsulosin HCl (Flomax) 0.4 mg PO DAILY [facility] Last Admin: 05/05/18 09:59 Dose: 0.4 mg Terbutaline Sulfate (Brethine Inj) 1 mg SQ UNSCH PRN PRN Reason: For Extravasation Allergies Allergy/AdvReac Type Severity Reaction Status Date / Time aspirin Allergy Mild HEART RATE Verified 03/25/18 20:32 INCREASES caffeine Allergy Mild HEART RATE Verified 03/25/18 20:32 INCREASES Home Medications Medication Instructions Recorded Confirmed Type metoprolol tartrate 50 mg PO BID 03/12/18 04/25/18 History Advance Directives Living Will: No Healthcare Surrogate: Yes (ex-, Liz Lima [phone]) Health Care Surrogate Name and Number: Liz Lima [phone] Today's verbally stated goals: Patient elects NO CODE (DNR/DNI) as per verbalized wishes today and [place] DNR he completed during last admission. He hopes to return to rehab. Open to hospice if his condition declines or does not improve. Ethical and Legal Issues: No known concerns at this time. Physical Exam Vital Signs: Vital Signs - 24 hr 05/04/18 17:00 05/04/18 18:00 05/04/18 19:00 Temperature Pulse Rate 58 L 59 L 57 L Respiratory Rate 19 24 28 H Blood Pressure 131/60 139/64 135/61 Pulse Oximetry 96 97 94 L 05/04/18 19:31 05/04/18 20:00 05/04/18 21:00 Temperature 98.5 F Pulse Rate 57 L 61 66 Respiratory Rate 24 25 H 72 H Blood Pressure 137/66 127/60 Pulse Oximetry 95 97 96 05/04/18 22:00 05/04/18 22:01 05/04/18 23:00 Temperature Pulse Rate 70 72 66 Respiratory Rate 18 15 15 Blood Pressure 154/67 H 117/58 L Pulse Oximetry 99 100 98 05/05/18 00:00 05/05/18 01:00 05/05/18 02:00 Temperature 98.0 F Pulse Rate 62 63 66 Respiratory Rate 16 107 H 142 H Blood Pressure 119/58 L 125/57 L Pulse Oximetry 97 97 97 05/05/18 02:01 05/05/18 03:00 05/05/18 04:00 Temperature 98.4 F Pulse Rate 65 66 72 Respiratory Rate 127 H 28 H 77 H Blood Pressure 143/64 H 130/60 149/67 H Pulse Oximetry 97 95 92 L 05/05/18 05:00 05/05/18 05:01 05/05/18 06:00 Temperature Pulse Rate 68 68 68 Respiratory Rate 22 20 20 Blood Pressure 123/59 L 136/62 Pulse Oximetry 94 L 94 L 94 L 05/05/18 07:00 05/05/18 07:01 05/05/18 08:00 Temperature Pulse Rate 75 76 71 Respiratory Rate 20 22 22 Blood Pressure 143/65 H Pulse Oximetry 93 L 93 L 93 L 05/05/18 08:01 05/05/18 09:00 05/05/18 09:01 Temperature Pulse Rate 71 75 75 Respiratory Rate 20 22 20 Blood Pressure 126/60 111/56 L Pulse Oximetry 93 L 93 L 94 L 05/05/18 10:00 05/05/18 11:00 05/05/18 11:01 Temperature Pulse Rate 66 67 68 Respiratory Rate 20 24 22 Blood Pressure 121/58 L 151/67 H Pulse Oximetry 93 L 94 L 94 L 05/05/18 12:00 05/05/18 12:01 05/05/18 13:00 Temperature Pulse Rate 66 64 62 Respiratory Rate 22 18 20 Blood Pressure 143/64 H Pulse Oximetry 96 95 96 05/05/18 13:01 05/05/18 14:00 05/05/18 14:01 Temperature Pulse Rate 63 58 L 57 L Respiratory Rate 18 23 24 Blood Pressure 109/53 L 121/59 L Pulse Oximetry 95 96 96 05/05/18 15:00 05/05/18 15:01 05/05/18 16:00 Temperature Pulse Rate 59 L 57 L 57 L Respiratory Rate 20 22 72 H Blood Pressure 127/59 L Pulse Oximetry 96 97 93 L 05/05/18 16:01 Temperature Pulse Rate 58 L Respiratory Rate 86 H Blood Pressure 119/57 L Pulse Oximetry 93 L I&O: Intake & Output 05/03/18 05/04/18 05/05/18 05/06/18 06:59 06:59 06:59 06:59 Intake Total 1490 / 1490 1609 / 1609 1045 / 1045 Output Total 800 / 800 2200 / 2200 2475 / 2475 Balance 690 / 690 -591 / -591 -1430 / -1430 Weight 118 kg 113 kg Physical Exam: CONSTITUTIONAL/GENERAL: This is an adequately nourished patient, in no apparent distress. SKIN: No jaundice, rashes, or lesions. Ecchymoses on upper extremities. Skin temperature appropriate. Not diaphoretic. HEAD: Atraumatic. Normocephalic. EYES: Pupils equal and round and reactive. Extraocular motions intact. No scleral icterus. No injection or drainage. Fundi not examined. ENT: Hard of hearing. Nose without bleeding or purulent drainage. Throat without visible erythema, exudates, masses, or lesions. NECK: Trachea midline. CARDIOVASCULAR: irregular, distant heart sounds. RESPIRATORY/CHEST: Mildly labored respirations at rest. Clear to auscultation. GASTROINTESTINAL: Abdomen soft, non-tender, protuberant, No guarding. Bowel sounds present. Colostomy, draining brown stool, stoma pink. GENITOURINARY: Without palpable bladder distension. Barker catheter in place. MUSCULOSKELETAL: Extremities with generalized pitting edema, weeping edema LUE. LYMPHATICS: No palpable cervical or supraclavicular adenopathy. NEUROLOGICAL: Awake and alert. Generalized weakness. Follows commands. Cognitively sharp. Moves all extremities. PSYCHIATRIC: Smiling, cooperative. No obvious anxiety/depression. no apparent hallucinations or other psychotic thought process. Diagnostic Tests Laboratory: Laboratory Results - last 72 hr 05/02/18 05/03/18 05/03/18 16:42 02:55 07:42 WBC 10.8 RBC 4.09 L Hgb 8.1 L D Hct 25.2 L MCV 61.6 L MCH 19.7 L MCHC 32.0 RDW 18.6 H Plt Count 71 L D MPV 8.5 Prelim Diff (Auto) Slide review pending Neut % (Auto) 64.6 Lymph % (Auto) 32.7 [place] % (Auto) 1.0 Eos % (Auto) 1.6 Baso % (Auto) 0.1 Neut # (Auto) 7.0 Lymph # (Auto) 3.5 [place] # (Auto) 0.1 Eos # (Auto) 0.2 Baso # (Auto) 0.0 WBC Differential Manual diff final Diff Scan Seg Neuts % (Manual) 57 Band Neuts % (Manual) 4 Lymphocytes % (Manual) 32 Monocytes % (Manual) 3 Eosinophils % (Manual) 3 Metamyelocytes % (Man) 1 Abs Neuts (Manual) 6.7 Differential Comment . Platelet Estimate Low L Platelet Morphology Normal Ovalocytes 2+ H Sodium Potassium Chloride Carbon Dioxide Anion Gap BUN Creatinine Estimated GFR POC Glucose 197 H 217 H Random Glucose Hemoglobin A1c Calcium Phosphorus Magnesium Total Bilirubin AST ALT Alkaline Phosphatase Total Protein Albumin TSH Free T4 05/03/18 05/03/18 05/03/18 11:28 16:58 20:48 WBC RBC Hgb Hct MCV MCH MCHC RDW Plt Count MPV Prelim Diff (Auto) Neut % (Auto) Lymph % (Auto) [place] % (Auto) Eos % (Auto) Baso % (Auto) Neut # (Auto) Lymph # (Auto) [place] # (Auto) Eos # (Auto) Baso # (Auto) WBC Differential Diff Scan Seg Neuts % (Manual) Band Neuts % (Manual) Lymphocytes % (Manual) Monocytes % (Manual) Eosinophils % (Manual) Metamyelocytes % (Man) Abs Neuts (Manual) Differential Comment Platelet Estimate Platelet Morphology Ovalocytes Sodium Potassium Chloride Carbon Dioxide Anion Gap BUN Creatinine Estimated GFR POC Glucose 168 H 135 H 259 H Random Glucose Hemoglobin A1c Calcium Phosphorus Magnesium Total Bilirubin AST ALT Alkaline Phosphatase Total Protein Albumin TSH Free T4 05/04/18 05/04/18 05/04/18 02:32 02:32 02:32 WBC 12.4 H RBC 4.55 Hgb 8.8 L Hct 27.9 L MCV 61.4 L MCH 19.5 L MCHC 31.7 L RDW 19.1 H Plt Count 89 L MPV 8.4 Prelim Diff (Auto) Slide review pending Neut % (Auto) 66.2 Lymph % (Auto) 30.3 [place] % (Auto) 1.9 Eos % (Auto) 1.6 Baso % (Auto) 0.0 Neut # (Auto) 8.2 H Lymph # (Auto) 3.7 [place] # (Auto) 0.2 Eos # (Auto) 0.2 Baso # (Auto) 0.0 WBC Differential . Diff Scan Auto diff confirmed Seg Neuts % (Manual) Band Neuts % (Manual) Lymphocytes % (Manual) Monocytes % (Manual) Eosinophils % (Manual) Metamyelocytes % (Man) Abs Neuts (Manual) Differential Comment . Platelet Estimate Low L Platelet Morphology Ovalocytes 1+ H Sodium 146 H Potassium 4.1 Chloride 110 H Carbon Dioxide 28.3 Anion Gap 8 BUN 44 H Creatinine 1.42 H Estimated GFR 48 L POC Glucose Random Glucose 202 H Hemoglobin A1c 9.6 H Calcium 7.6 L Phosphorus 2.6 Magnesium 1.8 Total Bilirubin 0.2 AST 11 L ALT 18 Alkaline Phosphatase 72 Total Protein 4.6 L D Albumin 1.8 L TSH 0.511 Free T4 1.43 05/04/18 05/04/18 05/04/18 09:01 11:48 20:27 WBC RBC Hgb Hct MCV MCH MCHC RDW Plt Count MPV Prelim Diff (Auto) Neut % (Auto) Lymph % (Auto) [place] % (Auto) Eos % (Auto) Baso % (Auto) Neut # (Auto) Lymph # (Auto) [place] # (Auto) Eos # (Auto) Baso # (Auto) WBC Differential Diff Scan Seg Neuts % (Manual) Band Neuts % (Manual) Lymphocytes % (Manual) Monocytes % (Manual) Eosinophils % (Manual) Metamyelocytes % (Man) Abs Neuts (Manual) Differential Comment Platelet Estimate Platelet Morphology Ovalocytes Sodium Potassium Chloride Carbon Dioxide Anion Gap BUN Creatinine Estimated GFR POC Glucose 163 H 162 H 183 H Random Glucose Hemoglobin A1c Calcium Phosphorus Magnesium Total Bilirubin AST ALT Alkaline Phosphatase Total Protein Albumin TSH Free T4 05/05/18 05/05/18 13:37 13:37 WBC 10.7 RBC 4.58 Hgb 8.9 L Hct 28.5 L MCV 62.2 L MCH 19.5 L MCHC 31.3 L RDW 18.9 H Plt Count 98 L MPV 8.6 Prelim Diff (Auto) Slide review pending Neut % (Auto) 66.8 Lymph % (Auto) 29.2 [place] % (Auto) 2.9 Eos % (Auto) 0.7 Baso % (Auto) 0.4 Neut # (Auto) 7.2 Lymph # (Auto) 3.1 [place] # (Auto) 0.3 Eos # (Auto) 0.1 Baso # (Auto) 0.0 WBC Differential . Diff Scan Auto diff confirmed Seg Neuts % (Manual) Band Neuts % (Manual) Lymphocytes % (Manual) Monocytes % (Manual) Eosinophils % (Manual) Metamyelocytes % (Man) Abs Neuts (Manual) Differential Comment . Platelet Estimate Low L Platelet Morphology Normal Ovalocytes 1+ H Sodium 142 Potassium 4.5 Chloride 108 H Carbon Dioxide 24.6 Anion Gap 9 BUN 34 H Creatinine 1.55 H Estimated GFR 43 L POC Glucose Random Glucose 180 H Hemoglobin A1c Calcium 7.9 L Phosphorus 2.3 L Magnesium 1.7 Total Bilirubin 3.2 H AST 252 H ALT 308 H Alkaline Phosphatase 392 H Total Protein 4.8 L Albumin 1.9 L TSH Free T4 Result Diagrams: 05/05/18 13:37 05/05/18 13:37 Microbiology: Microbiology 04/29/18 03:23 Aerobic Blood Culture - Final Blood - Peripheral No growth in 5 days Anaerobic Blood Culture - Final No growth in 5 days 04/29/18 03:15 Aerobic Blood Culture - Final Blood - Peripheral No growth in 5 days Anaerobic Blood Culture - Final No growth in 5 days Imaging: Chest X-Ray 04/28/18 00:00 Cardiomegaly and aortic calcification noted. There is patchy right basilar airspace disease noted. There is mild atelectasis at the left base. Cannot exclude small effusions. CONCLUSION: Basilar airspace disease. Head CT 04/29/18 00:00 CONCLUSION: 1. Stable appearance of the brain. . Procedures: * 04/26/18 - right IJ Central line placement Patient/Family Conference Present at Family Conference: Met with patient and his daughter, Yvette Tyson at bedside. Family Conference Time: 60 Family Conference Location: Bedside Issues Discussed: * Palliative care role, purpose, approach * Additional medical, psychosocial, and spiritual history * Patients general health, functional status, and cognitive changes in the months leading up to the current hospitalization * Patient/family understanding of the current medical problems * Patient/family understanding of prognosis * Patients goals of care as best understood from advance directives and/or conversations and/or values * Current medical treatment options and benefits/burdens of those options * Likely scenarios comparing ongoing aggressive care with a transition to comfort measures only * Questions answered to the best of my ability * Palliative care contact information provided 05/05/18: Met with patient and his daughter, Yvette at bedside. He desires continued aggressive care short of NO CODE at this time in hopes he will be able to return to rehab in the coming days. He requests the medical team be open if we anticipate inability to get him back to rehab related to further decline. He verbalizes frustrations that his body continues to fail. He understands his high risk for further setbacks and decline and is open to hospice if his condition declines or does not improve. Assessment and Plan - Disease Oriented Problem List (1) Acute renal insufficiency (2) Hypernatremia (3) Metabolic acidosis (4) Respiratory failure (5) COPD (chronic obstructive pulmonary disease) (6) Hypotension - Symptom Scale (1) Dyspnea 0-10 Scale: Unable to quantify (2) Weakness 0-10 Scale: Unable to quantify Pertinent Non-Medical Issues: Psychosocial: . Has 2 daughters (Marisol and Lorie) and 4 sons ( Inderjit, Aidan, Edgard Jr and Yo). Family reports Yo has severe autism, not capacitated. Spiritual: Unknown. Legal: Patient is capacitated to make his own healthcare decisions. Completed designation of health care surrogate naming his ex-, Liz Lima as health care surrogate should he lose capacity. Ethical issues impacting care: No known concerns at this time. Important Contacts: * Liz Lima, ex-/ [facility]: [phone] * Marisol Dick, daughter: [phone] * Lorie Timmons, daughter: [phone] Prognosis: Mr. Lima is an 82-year-old male with recent diagnosis of colon cancer status post surgical resection, COPD, hypertension, hyperlipidemia, atrial fibrillation , arthritis, polyneuropathy, diabetes and elevated BMI patient was admitted with Patient remains high risk for further setbacks, decline or even . Code Status: No Code DNR Plan: * Decision Maker: Patient is capacitated to make his own healthcare decisions. Completed designation of health care surrogate nbaming his ex-, Liz Lima as health care surrogate should he lose capacity. * NO CODE (DNR/DNI) - per patient wishes today and [place] DNR on chart completed during last admission. * 05/05/18: Met with patient and his daughter, Yvette at bedside. He desires continued aggressive care short of NO CODE at this time in hopes he will be able to return to rehab in the coming days. He requests the medical team be open if we anticipate inability to get him back to rehab related to further decline. He verbalizes frustrations that his body continues to fail. He understands his high risk for further setbacks and decline and is open to hospice if his condition declines or does not improve. * SYMPTOMS: Pain: sources may include cancer, debility, decreased appetite, bedbound status. Denies pain. Will monitor. Dyspnea: on oxygen via [place], feels his breathing is stable for his baseline COPD. * Palliative care number provided. * Palliative care will continue to follow throughout hospital course to assist with symptom management and clarification of goals as needed. Appreciation Thank you for the opportunity to participate in the care of Edgard Lima. Attestation Attestation: To help prompt me to consider important information that might be impacting today's encounter and assessment, information from prior notes written by myself or my colleagues may have been "brought forward" into today's note. My signature on this note, however, is an attestation that I personally performed the exam, history, and/or decision-making noted today, and, unless otherwise indicated, the interactions with patient, family, and staff as well as the review of records all occurred today. I also attest that the listed assessment and stated plan reflect my best clinical judgment today based on the combination of historical information, prior notes, and today's exam/ interactions. When time spent is documented, it refers only to time spent today by the signer, or if indicated, combined time spent today by collaborating physician/nurse practitioner.
[2018-05-06 05:00] LABS: Baso % (Auto) 0.4 % (0.0-2.0); Eos # (Auto) 0.1 th/mm3 (0.0-0.4); Eos % (Auto) 1.1 % (0.0-4.0); Hematocrit 28.4 % (39.0-51.0); Hemoglobin 9.1 gm/dL (13.0-17.0); Lymph % (Auto) 38.8 % (9.0-44.0); Mean Corpuscular Hemoglobin 19.8 pg (27.0-34.0); Mean Corpuscular Volume 61.7 fL (80.0-100.0); Mean Platelet Volume 8.7 fL (7.0-11.0); Mono # (Auto) 0.3 th/mm3 (0.0-0.9); Mono % (Auto) 2.7 % (0.0-8.0); Neut # (Auto) 5.8 th/mm3 (1.8-7.7); Platelet Count 104 th/mm3 (150-450); Red Cell Distribution Width 18.9 % (11.6-17.2); White Blood Count 10.3 th/mm3 (4.0-11.0)
[2018-05-06 05:15] LABS: Anion Gap 6 meq/L (5-15); Aspartate Aminotransferase 254 U/L (15-37); Blood Urea Nitrogen 32 mg/dL (7-18); Calcium 7.8 mg/dL (8.5-10.1); Carbon Dioxide 27.9 meq/L (21.0-32.0); Chloride 109 meq/L (98-107); Glomerular Filtration Rate 42 mL/min (>89); Glucose,Random 134 mg/dL (74-106); Magnesium 1.8 mg/dL (1.5-2.5); Sodium 143 meq/L (136-145)
[2018-05-06 05:16] LABS: Alanine Aminotransferase 382 U/L (12-78); Phosphorus 2.5 mg/dL (2.5-4.9)
[2018-05-06 05:18] LABS: Alkaline Phosphatase 425 U/L (45-117); Total Protein 5.2 g/dL (6.4-8.2)
[2018-05-06 07:23] LABS: Eosinophils 3 % (0-4); Lymphocytes 20 % (9-44); Myelocytes 1 % (0-0); Ovalocytes 1+; Platelet Morphology Normal (Normal)
[2018-05-06] MEDS: Lactobacillus Acidophilus/L. Spores Tablet PO SCH ×3 (09:11→18:03)
[2018-05-06] MEDS: Metoprolol Tartrate 50 MG Tablet PO SCH ×3 (09:11→18:03)
[2018-05-06] MEDS: guaiFENesin 600 MG ER Tablet PO SCH ×3 (09:11→20:44)
[2018-05-06] MEDS: dilTIAZem 30 MG Tablet PO SCH ×6 (09:11→20:43)
[2018-05-06] MEDS: Amiodarone 200 MG Tablet PO SCH ×3 (09:11→20:44)
[2018-05-06] MEDS: predniSONE 10 MG Tablet PO SCH (09:12)
[2018-05-06] MEDS: Famotidine PF Inj 20 MG/2 ML Vial IV.PUSH SCH ×2 (09:12→20:27)
[2018-05-06] MEDS: Senna/Docusate Sodium 8.6/50 MG Tablet PO SCH ×3 (09:12→20:44)
[2018-05-06] MEDS: Insulin Detemir Inj 1,000 UNIT/10 ML Vial SQ SCH ×2 (09:14→20:29)
[2018-05-06] MEDS: Insulin NovoLOG Aspart Correctional Sugar Inj SQ SCH ×4 (09:14→20:28)
--- NOTE | 2018-05-06 10:39 | P.PNIM ---
Subjective Interval history: 05-03 Patient remains on Cardizem drip went back into A. fib/ a flutter remains on Cardizem drip at 15 mg/h Discussed with RN and patient Dr. Mendiola is aware of the heart rate and meds have been adjusted Physical therapy and occupational therapy to eval and treat A.m. labs 05-04 Cardizem dose has been increased by Dr. Mendiola Try to wean off Cardizem drip Monitor today in ICU If stable transfer floor tomorrow A.m. labs Discussed with RN and patient Patient did not take all his medications last night 9 patient is refusing his medications today Discussed with RN and patient Patient appears quite distraught and depressed We will consult psychiatry for severe depression and not wanting to take any more of his medications We will get a.m. labs I believe patient refused his labs today and refused his medications Is still a full code We will ask palliative care to consult also EXPLAINED NEED TO TAKE MEDICATIONS SO HE CAN LEAVE THE HOSPITAL 05-06 made himself a DNR Dw RN AND PT PATIENT WAS REFUSING MEDS AND NOT EATING WELL OK OUT OF ICU PT AND OT WILL NEED SNF AT DC AM LABS Physical Exam Vital signs: Vital Signs 05/05/18 11:00 05/05/18 11:01 05/05/18 12:00 Temperature Pulse Rate 67 68 66 Respiratory Rate 24 22 22 Blood Pressure 151/67 H Pulse Oximetry 94 L 94 L 96 05/05/18 12:01 05/05/18 13:00 05/05/18 13:01 Temperature Pulse Rate 64 62 63 Respiratory Rate 18 20 18 Blood Pressure 143/64 H 109/53 L Pulse Oximetry 95 96 95 05/05/18 14:00 05/05/18 14:01 05/05/18 15:00 Temperature Pulse Rate 58 L 57 L 59 L Respiratory Rate 23 24 20 Blood Pressure 121/59 L Pulse Oximetry 96 96 96 05/05/18 15:01 05/05/18 16:00 05/05/18 16:01 Temperature Pulse Rate 57 L 57 L 58 L Respiratory Rate 22 72 H 86 H Blood Pressure 127/59 L 119/57 L Pulse Oximetry 97 93 L 93 L 05/05/18 17:00 05/05/18 17:01 05/05/18 18:00 Temperature Pulse Rate 58 L 59 L 70 Respiratory Rate 109 H 94 H 94 H Blood Pressure 145/63 H Pulse Oximetry 93 L 94 L 96 05/05/18 18:10 05/05/18 19:00 05/05/18 19:01 Temperature Pulse Rate 69 66 67 Respiratory Rate 87 H 85 H 100 H Blood Pressure 122/59 L 118/58 L Pulse Oximetry 95 93 L 93 L 05/05/18 19:08 05/05/18 20:00 05/05/18 21:00 Temperature 98.6 F Pulse Rate 69 73 Respiratory Rate 8 L 26 H Blood Pressure 127/61 Pulse Oximetry 96 92 L 93 L 05/05/18 21:01 05/05/18 22:00 05/05/18 22:01 Temperature Pulse Rate 72 75 73 Respiratory Rate 28 H 99 H 143 H Blood Pressure 135/63 149/64 H Pulse Oximetry 92 L 94 L 94 L 05/05/18 23:00 05/05/18 23:01 05/06/18 00:00 Temperature 98.6 F Pulse Rate 74 74 76 Respiratory Rate 16 15 21 Blood Pressure 160/69 H Pulse Oximetry 95 95 94 L 05/06/18 00:01 05/06/18 01:00 05/06/18 01:01 Temperature Pulse Rate 74 73 73 Respiratory Rate 18 17 17 Blood Pressure 146/66 H 134/63 Pulse Oximetry 94 L 92 L 92 L 05/06/18 02:00 05/06/18 02:01 05/06/18 03:00 Temperature Pulse Rate 76 74 78 Respiratory Rate 18 22 18 Blood Pressure 171/75 H Pulse Oximetry 93 L 93 L 93 L 05/06/18 03:01 05/06/18 04:00 05/06/18 04:01 Temperature 98.6 F Pulse Rate 78 83 81 Respiratory Rate 18 37 H 32 H Blood Pressure 164/68 H 153/67 H Pulse Oximetry 94 L 93 L 94 L 05/06/18 06:00 05/06/18 07:37 05/06/18 08:00 Temperature 97.6 F Pulse Rate 83 77 Respiratory Rate 24 Blood Pressure 147/65 H Pulse Oximetry 97 98 05/06/18 09:00 Temperature Pulse Rate 77 Respiratory Rate Blood Pressure Pulse Oximetry Intake & Output 05/05/18 05/06/18 05/06/18 18:59 06:59 18:59 Intake Total 994 / 994 580 / 580 Output Total 1275 / 1275 150 / 150 Balance -281 / -281 430 / 430 Weight 114.4 kg Intake: IV 100 / 100 Rocephin Inj 2,000 MG In NS Inj 100 / 100 100 ML @ 200 mls/hr IV.SIG Q24H VIJAYA Rx#:[id number] Oral 720 / 720 480 / 480 Other 274 / 274 Output: Urine 75 / 75 Stool 200 / 200 Urine Amount (Catheter) 150 / 150 Indwelling Temp Sensing 150 / 150 Catheter Stool Amount (Stoma) 1000 / 1000 Pre-Hospital: Left Lower 1000 / 1000 Abdomen Other: # Incontinent Voids 2 # Urine Diapers 3 Date of Last Bowel Movement 05/04/18 05/06/18 05/06/18 # Bowel Movements 0 Narrative: GENERAL: WDWN obese male patient, not in any acute distress. Awake and alert. Appears distraught and depressed at this time SKIN: Warm and dry. HEAD: Atraumatic. Normocephalic. EYES: Pupils equal and round. No scleral icterus. No injection or drainage. EOMI ENT: No nasal bleeding or discharge. Mucous membranes pink and moist. NECK: Trachea midline. No JVD. CARDIOVASCULAR: IRRR S1-S2 no S3 or S4 RESPIRATORY: No accessory muscle use. Diminished bilaterally. Breath sounds equal bilaterally. GASTROINTESTINAL: Abdomen soft, non-tender, nondistended. +BS. GENITOURINARY: Fajardo in place with clear yellow urine in bag. Fajardo catheter in place MUSCULOSKELETAL: Extremities without clubbing or cyanosis. Trace to 1+ BLE edema. No obvious deformities. NEUROLOGICAL: Awake and alert. No obvious cranial nerve deficits. Motor grossly within normal limits. Able to move all extremities spontaneously. Normal speech. PSYCHIATRIC: INAppropriate mood and affect; insight and judgment ABnormal. Fajardo catheter in place - Urinary Catheter Management Indwelling Temp Sensing Catheter Cath placed during this visit: yes Reason for continuing: Hourly intake/output Insertion date: 04/25/18 Insertion time: 20:00 Results - Labs CBC & Chem 7: 05/06/18 03:57 05/06/18 03:57 Laboratory Results - last 24 hr 05/05/18 05/05/18 05/05/18 13:37 13:37 20:45 WBC 10.7 RBC 4.58 Hgb 8.9 L Hct 28.5 L MCV 62.2 L MCH 19.5 L MCHC 31.3 L RDW 18.9 H Plt Count 98 L MPV 8.6 Prelim Diff (Auto) Slide review pending Neut % (Auto) 66.8 Lymph % (Auto) 29.2 [place] % (Auto) 2.9 Eos % (Auto) 0.7 Baso % (Auto) 0.4 Neut # (Auto) 7.2 Lymph # (Auto) 3.1 [place] # (Auto) 0.3 Eos # (Auto) 0.1 Baso # (Auto) 0.0 WBC Differential . Diff Scan Auto diff confirmed Seg Neuts % (Manual) Band Neuts % (Manual) Lymphocytes % (Manual) Eosinophils % (Manual) Myelocytes % (Man) Abs Neuts (Manual) Differential Comment . Platelet Estimate Low L Platelet Morphology Normal Ovalocytes 1+ H Sodium 142 Potassium 4.5 Chloride 108 H Carbon Dioxide 24.6 Anion Gap 9 BUN 34 H Creatinine 1.55 H Estimated GFR 43 L POC Glucose 194 H Random Glucose 180 H Calcium 7.9 L Phosphorus 2.3 L Magnesium 1.7 Total Bilirubin 3.2 H AST 252 H ALT 308 H Alkaline Phosphatase 392 H Total Protein 4.8 L Albumin 1.9 L 05/06/18 05/06/18 05/06/18 03:57 03:57 09:06 WBC 10.3 RBC 4.60 Hgb 9.1 L Hct 28.4 L MCV 61.7 L MCH 19.8 L MCHC 32.0 RDW 18.9 H Plt Count 104 L MPV 8.7 Prelim Diff (Auto) Slide review pending Neut % (Auto) 57.0 Lymph % (Auto) 38.8 [place] % (Auto) 2.7 Eos % (Auto) 1.1 Baso % (Auto) 0.4 Neut # (Auto) 5.8 Lymph # (Auto) 4.0 [place] # (Auto) 0.3 Eos # (Auto) 0.1 Baso # (Auto) 0.0 WBC Differential Manual diff final Diff Scan Seg Neuts % (Manual) 71 H Band Neuts % (Manual) 5 Lymphocytes % (Manual) 20 Eosinophils % (Manual) 3 Myelocytes % (Man) 1 H Abs Neuts (Manual) 7.9 H Differential Comment . Platelet Estimate Low L Platelet Morphology Normal Ovalocytes 1+ H Sodium 143 Potassium 4.0 Chloride 109 H Carbon Dioxide 27.9 Anion Gap 6 BUN 32 H Creatinine 1.59 H Estimated GFR 42 L POC Glucose 155 H Random Glucose 134 H Calcium 7.8 L Phosphorus 2.5 Magnesium 1.8 Total Bilirubin 2.4 H AST 254 H ALT 382 H Alkaline Phosphatase 425 H Total Protein 5.2 L Albumin 2.0 L - Imaging ITS Impressions Chest X-Ray 04/28/18 00:00 Cardiomegaly and aortic calcification noted. There is patchy right basilar airspace disease noted. There is mild atelectasis at the left base. Cannot exclude small effusions. CONCLUSION: Basilar airspace disease. Head CT 04/29/18 00:00 CONCLUSION: 1. Stable appearance of the brain. . - Procedures Date of procedure: 04/26/18 Pre-op diagnosis: septic shock Post-op diagnosis: same Procedure: US guided RIJ central line Central line checklist completed, timeout completed. I wore a surgical cap, mask with protective eyewear, full gown and sterile gloves throughout the procedure. Right neck region was prepped using chlorhexidine scrub and draped in sterile fashion. The right IJ was identified using the ultrasound. Anesthesia was achieved over the vein using 1% lidocaine. The introducer needle was inserted into the right IJ under direct ultrasound visualization. Venous blood was withdrawn. The syringe was removed and a guidewire was advanced into the introducer needle. A small incision was made at the skin surface with a scalpel and the introducer needle was exchanged for a dilator over the guidewire. After appropriate dilation was obtained, the dilator was exchanged over the wire for a triple lumen, 7F, antibiotic coated central venous catheter. The wire was removed and the catheter was sutured in place at 18 cm. A sterile central line dressing was placed over the catheter at the insertion site. The patient tolerated the procedure without any hemodynamic compromise. At time of procedure completion, all ports aspirated and flushed properly. Post- procedure chest x-ray is pending at this time. Anesthesia: local Surgeon: Radha Nance Estimated blood loss (mL): 1 Pathology: none sent Condition: critical Disposition: ICU Documented By: Radha Nance MD Assessment and Plan - Plan Patient is now made himself a DNR Atrial fibrillation / Flutter with RVR History of hypertension -rate uncontrolled. Give additional dose of Metoprolol now. Transfer patient. Begin on Cardizem drip. Hold po Cardizem. -Rate had increased on Cardizem to 15 mg/h -Cardiology following, appreciate assistance -continue on po amiodarone and metoprolol -Continue Eliquis -Patient is on chronic prednisone which was placed on hold and started stress dose steroids 100 mg hydrocortisone IV every 8 hours on 04/26. Tapered down and DC. However patient with wheezing on 04/28 and started on solumedrol tapered. -Patient had Cardizem increased orally--to be weaned off Cardizem drip today Septic shock Gram-negative bacteremia, E coli UTI, Ecoli -repeat blood cx neg -ID following, on IV Ceftriaxone -IV fluid hydration, reduce maintenance fluid rate to 50 mL/h Acute kidney failure -BUN/creatinine improving with aggressive hydration -CMP in a.m., continue to use IV fluid to 50 mL/h COPD Chronic respiratory failure O2 dependent -DuoNeb scheduled and as needed -Patient is on chronic prednisone which was placed on hold and started stress dose steroids 100 mg hydrocortisone IV every 8 hours on 04/26. Tapered down and DC. However patient with wheezing on 04/28 and started on solumedrol taper. Diabetes mellitus -Hold metformin while in the ICU -patient on Levemir 10u BID but has been refusing -Insulin sliding scale Monitor sugars BPH Urinary retention -continue on Flomax -Evaluated by Urology. Has fajardo at this time. Continue fajardo at DC . To follow up as OP with urology We will need to go home with Fajardo catheter Severe depression Noncompliance Patient is refusing his medications will ask psychiatry to consult Patient refusing lab work Need input from psychiatry We will consult palliative care also Increase activity A.m. labs If remains stable transfer out of ICU later today or tomorrow Proph: GI and DVT prophylaxis -IV famotidine and Eliquis patient HAS now made himself a DNR Transfer out of ICU Continues to take medications hopefully can be discharged to senior care facility next few days Code Status: DNR Discharge Planning: Pending improvement of heart rate and improvement of breathing and pneumonia and UTI
[2018-05-07] MEDS: Insulin NovoLOG Aspart Correctional Sugar Inj SQ SCH ×4 (08:23→20:29)
[2018-05-07] MEDS: Metoprolol Tartrate 50 MG Tablet PO SCH ×3 (08:24→18:04)
[2018-05-07] MEDS: dilTIAZem 30 MG Tablet PO SCH ×4 (08:24→20:26)
[2018-05-07] MEDS: predniSONE 10 MG Tablet PO SCH (08:25)
[2018-05-07] MEDS: Amiodarone 200 MG Tablet PO SCH ×2 (08:25→20:25)
[2018-05-07] MEDS: guaiFENesin 600 MG ER Tablet PO SCH ×2 (08:25→20:29)
[2018-05-07] MEDS: Insulin Detemir Inj 1,000 UNIT/10 ML Vial SQ SCH ×2 (08:25→20:26)
[2018-05-07] MEDS: Famotidine PF Inj 20 MG/2 ML Vial IV.PUSH SCH ×2 (08:26→20:31)
[2018-05-07] MEDS: Lactobacillus Acidophilus/L. Spores Tablet PO SCH ×3 (08:26→18:04)
[2018-05-07] MEDS: Senna/Docusate Sodium 8.6/50 MG Tablet PO SCH ×2 (08:27→20:25)
--- NOTE | 2018-05-07 12:03 | P.PNIM ---
Subjective Interval history: - Patient remains on Cardizem drip went back into A. fib/ a flutter remains on Cardizem drip at 15 mg/h Discussed with RN and patient Dr. Mendiola is aware of the heart rate and meds have been adjusted Physical therapy and occupational therapy to eval and treat A.m. labs 9- Cardizem dose has been increased by Dr. Mendiola Try to wean off Cardizem drip Monitor today in ICU If stable transfer floor tomorrow A.m. labs Discussed with RN and patient Patient did not take all his medications last night 9- patient is refusing his medications today Discussed with RN and patient Patient appears quite distraught and depressed We will consult psychiatry for severe depression and not wanting to take any more of his medications We will get a.m. labs I believe patient refused his labs today and refused his medications Is still a full code We will ask palliative care to consult also EXPLAINED NEED TO TAKE MEDICATIONS SO HE CAN LEAVE THE HOSPITAL 9 made himself a DNR Dw RN AND PT PATIENT WAS REFUSING MEDS AND NOT EATING WELL OK OUT OF ICU PT AND OT WILL NEED SNF AT DC AM LABS - HOPEFULLY TO SNF TOMORROW NEEDS TO TAKE HIS MEDICATIONS SO HE DOES NOT HAVE TO COME BACK TO THE HOSPITAL DW RN AND PT TRANSFER OUT OF ICU Physical Exam Vital signs: Vital Signs 05/06/18 14:00 05/06/18 16:00 05/06/18 18:00 Temperature 98.8 F Pulse Rate 95 H 82 84 Respiratory Rate 24 Blood Pressure 172/75 H Pulse Oximetry 98 05/06/18 20:00 05/06/18 22:00 05/06/18 23:55 Temperature 97.9 F Pulse Rate 82 69 Respiratory Rate 20 Blood Pressure 155/70 H Pulse Oximetry 94 L 94 L 05/07/18 00:00 05/07/18 02:00 05/07/18 04:00 Temperature 98 F 98.2 F Pulse Rate 65 78 77 Respiratory Rate 18 15 Blood Pressure 163/71 H 175/77 H Pulse Oximetry 97 100 05/07/18 06:00 05/07/18 08:00 05/07/18 08:03 Temperature 97.6 F Pulse Rate 75 76 Respiratory Rate 15 Blood Pressure 166/72 H Pulse Oximetry 100 97 05/07/18 09:00 05/07/18 10:00 Temperature Pulse Rate 63 54 L Respiratory Rate Blood Pressure Pulse Oximetry Intake & Output 05/06/18 05/07/18 05/07/18 18:59 06:59 18:59 Intake Total 620 / 620 340 / 340 Output Total 630 / 630 800 / 800 Balance -10 / -10 -460 / -460 Weight 114.9 kg Intake: IV 100 / 100 Rocephin Inj 2,000 MG In NS Inj 100 / 100 100 ML @ 200 mls/hr IV.SIG Q24H VIJAYA Rx#:[id number] Oral 620 / 620 240 / 240 Other 0 / 0 Output: Urine 0 / 0 Stool 230 / 230 0 / 0 Urine Amount (Catheter) 400 / 400 200 / 200 Indwelling Temp Sensing 400 / 400 200 / 200 Catheter Stool Amount (Stoma) 600 / 600 Pre-Hospital: Left Lower 600 / 600 Abdomen Other: # Incontinent Voids 0 # Urine Diapers 0 Date of Last Bowel Movement 05/06/18 05/06/18 05/06/18 # Bowel Movements 0 Narrative: GENERAL: WDWN obese male patient, not in any acute distress. Awake and alert. Appears distraught and depressed at this time SKIN: Warm and dry. HEAD: Atraumatic. Normocephalic. EYES: Pupils equal and round. No scleral icterus. No injection or drainage. EOMI ENT: No nasal bleeding or discharge. Mucous membranes pink and moist. NECK: Trachea midline. No JVD. CARDIOVASCULAR: IRRR S1-S2 no S3 or S4 RESPIRATORY: No accessory muscle use. Diminished bilaterally. Breath sounds equal bilaterally. GASTROINTESTINAL: Abdomen soft, non-tender, nondistended. +BS. GENITOURINARY: Fajardo in place with clear yellow urine in bag. Fajardo catheter in place MUSCULOSKELETAL: Extremities without clubbing or cyanosis. Trace to 1+ BLE edema. No obvious deformities. NEUROLOGICAL: Awake and alert. No obvious cranial nerve deficits. Motor grossly within normal limits. Able to move all extremities spontaneously. Normal speech. PSYCHIATRIC: INAppropriate mood and affect; insight and judgment ABnormal. Fajardo catheter in place - Urinary Catheter Management Indwelling Temp Sensing Catheter Cath placed during this visit: yes Reason for continuing: Hourly intake/output Insertion date: 04/25/18 Insertion time: 20:00 Results - Labs CBC & Chem 7: 05/06/18 03:57 05/06/18 03:57 Laboratory Results - last 24 hr 05/06/18 05/06/18 05/07/18 13:12 19:53 08:10 POC Glucose 176 H 197 H 208 H - Procedures Date of procedure: 04/26/18 Pre-op diagnosis: septic shock Post-op diagnosis: same Procedure: US guided RIJ central line Central line checklist completed, timeout completed. I wore a surgical cap, mask with protective eyewear, full gown and sterile gloves throughout the procedure. Right neck region was prepped using chlorhexidine scrub and draped in sterile fashion. The right IJ was identified using the ultrasound. Anesthesia was achieved over the vein using 1% lidocaine. The introducer needle was inserted into the right IJ under direct ultrasound visualization. Venous blood was withdrawn. The syringe was removed and a guidewire was advanced into the introducer needle. A small incision was made at the skin surface with a scalpel and the introducer needle was exchanged for a dilator over the guidewire. After appropriate dilation was obtained, the dilator was exchanged over the wire for a triple lumen, 7F, antibiotic coated central venous catheter. The wire was removed and the catheter was sutured in place at 18 cm. A sterile central line dressing was placed over the catheter at the insertion site. The patient tolerated the procedure without any hemodynamic compromise. At time of procedure completion, all ports aspirated and flushed properly. Post- procedure chest x-ray is pending at this time. Anesthesia: local Surgeon: Radha Nance Estimated blood loss (mL): 1 Pathology: none sent Condition: critical Disposition: ICU Documented By: Radha Nance MD Assessment and Plan - Plan Patient is now made himself a DNR Atrial fibrillation / Flutter with RVR History of hypertension -rate uncontrolled. Give additional dose of Metoprolol now. Transfer patient. Begin on Cardizem drip. Hold po Cardizem. -Rate had increased on Cardizem to 15 mg/h -Cardiology following, appreciate assistance -continue on po amiodarone and metoprolol -Continue Eliquis -Patient is on chronic prednisone which was placed on hold and started stress dose steroids 100 mg hydrocortisone IV every 8 hours on 04/26. Tapered down and DC. However patient with wheezing on 04/28 and started on solumedrol tapered. -Patient had Cardizem increased orally--to be weaned off Cardizem drip today Septic shock Gram-negative bacteremia, E coli UTI, Ecoli -repeat blood cx neg -ID following, on IV Ceftriaxone -IV fluid hydration, reduce maintenance fluid rate to 50 mL/h Acute kidney failure -BUN/creatinine improving with aggressive hydration -CMP in a.m., continue to use IV fluid to 50 mL/h COPD Chronic respiratory failure O2 dependent -DuoNeb scheduled and as needed -Patient is on chronic prednisone which was placed on hold and started stress dose steroids 100 mg hydrocortisone IV every 8 hours on 04/26. Tapered down and DC. However patient with wheezing on 04/28 and started on solumedrol taper. Diabetes mellitus -Hold metformin while in the ICU -patient on Levemir 10u BID but has been refusing -Insulin sliding scale Monitor sugars BPH Urinary retention -continue on Flomax -Evaluated by Urology. Has fajardo at this time. Continue fajardo at DC . To follow up as OP with urology We will need to go home with Fajardo catheter Severe depression Noncompliance Patient is refusing his medications will ask psychiatry to consult Patient refusing lab work HAD input from psychiatry We will consult palliative care also Increase activity A.m. labs If remains stable transfer out of ICU later today or tomorrow Proph: GI and DVT prophylaxis -IV famotidine and Eliquis patient HAS now made himself a DNR Transfer out of ICU Continues to take medications hopefully can be discharged to nursing home facility next few days Discharge Planning: Pending improvement of heart rate and improvement of breathing and pneumonia and UTI
--- NOTE | 2018-05-07 12:30 | ECG ---
Date Performed: 05/05/2018 Time Performed: 13:42:59 PTAGE: 82 years EKG: SINUS BRADYCARDIA BORDERLINE LEFT AXIS DEVIATION LOW QRS VOLTAGE IN PRECORDIAL LEADS POSSIB LE RIGHT VENTRICULAR CONDUCTION DELAY BORDERLINE ECG Compared to PREVIOUS TRACING Sinus rhythm has replaced atrial flutter PREVIOUS TRACIN04/28/2018 13.23 DOCTOR: Malachi Arevalo Interpretating Date/Time 05/07/2018 12:28:40
[2018-05-07 13:00] LABS: Baso % (Auto) 0.5 % (0.0-2.0); Eos # (Auto) 0.1 th/mm3 (0.0-0.4); Eos % (Auto) 0.9 % (0.0-4.0); Hematocrit 27.8 % (39.0-51.0); Lymph # (Auto) 3.4 th/mm3 (1.0-4.8); Mean Corpuscular HGB Conc 32.2 % (32.0-36.0); Mean Corpuscular Hemoglobin 19.7 pg (27.0-34.0); Mean Corpuscular Volume 61.2 fL (80.0-100.0); Mean Platelet Volume 8.6 fL (7.0-11.0); Mono # (Auto) 0.4 th/mm3 (0.0-0.9); Mono % (Auto) 4.4 % (0.0-8.0); Neut # (Auto) 5.1 th/mm3 (1.8-7.7); Neut % (Auto) 56.2 % (16.0-70.0); Platelet Count 118 th/mm3 (150-450); Red Blood Count 4.55 mil/mm3 (4.50-5.90); Red Cell Distribution Width 18.6 % (11.6-17.2)
[2018-05-07 13:48] LABS: Alanine Aminotransferase 322 U/L (12-78); Albumin 1.9 g/dL (3.4-5.0); Alkaline Phosphatase 408 U/L (45-117); Anion Gap 6 meq/L (5-15); Aspartate Aminotransferase 112 U/L (15-37); Blood Urea Nitrogen 31 mg/dL (7-18); Carbon Dioxide 26.6 meq/L (21.0-32.0); Chloride 110 meq/L (98-107); Glomerular Filtration Rate 53 mL/min (>89); Glucose,Random 96 mg/dL (74-106); Magnesium 1.7 mg/dL (1.5-2.5); Phosphorus 2.3 mg/dL (2.5-4.9); Potassium 5.2 meq/L (3.5-5.1); Sodium 143 meq/L (136-145); Total Protein 5.4 g/dL (6.4-8.2)
[2018-05-07 14:01] LABS: Eosinophils 1 % (0-4); Lymphocytes 59 % (9-44); Monocytes 1 % (0-8); Ovalocytes 1+; Platelet Morphology Normal (Normal)
[2018-05-08] MEDS: dilTIAZem 30 MG Tablet PO SCH ×2 (09:43→12:35)
[2018-05-08] MEDS: Metoprolol Tartrate 50 MG Tablet PO SCH ×2 (09:43→12:35)
[2018-05-08] MEDS: Amiodarone 200 MG Tablet PO SCH (09:43)
[2018-05-08] MEDS: predniSONE 10 MG Tablet PO SCH (09:43)
[2018-05-08] MEDS: guaiFENesin 600 MG ER Tablet PO SCH (09:43)
[2018-05-08] MEDS: Famotidine PF Inj 20 MG/2 ML Vial IV.PUSH SCH (09:44)
[2018-05-08] MEDS: Senna/Docusate Sodium 8.6/50 MG Tablet PO SCH (09:44)
[2018-05-08] MEDS: Insulin NovoLOG Aspart Correctional Sugar Inj SQ SCH ×2 (09:44→12:35)
[2018-05-08] MEDS: Lactobacillus Acidophilus/L. Spores Tablet PO SCH ×2 (09:44→12:35)
[2018-05-08] MEDS: Insulin Detemir Inj 1,000 UNIT/10 ML Vial SQ SCH (09:44)
--- NOTE | 2018-05-08 10:10 | P.PNIM ---
Subjective Interval history: 05-03 Patient remains on Cardizem drip went back into A. fib/ a flutter remains on Cardizem drip at 15 mg/h Discussed with RN and patient Dr. Mendiola is aware of the heart rate and meds have been adjusted Physical therapy and occupational therapy to eval and treat A.m. labs 9- Cardizem dose has been increased by Dr. Mendiola Try to wean off Cardizem drip Monitor today in ICU If stable transfer floor tomorrow A.m. labs Discussed with RN and patient Patient did not take all his medications last night 9- patient is refusing his medications today Discussed with RN and patient Patient appears quite distraught and depressed We will consult psychiatry for severe depression and not wanting to take any more of his medications We will get a.m. 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 Physical Exam Vital signs: Vital Signs 05/07/18 12:00 05/07/18 16:00 05/07/18 18:00 Temperature 98.3 F 98.8 F Pulse Rate 59 L 63 63 Respiratory Rate 15 15 Blood Pressure 165/70 H 154/69 H Pulse Oximetry 100 100 05/07/18 19:34 05/07/18 20:00 05/07/18 22:00 Temperature 97.9 F Pulse Rate 63 66 Respiratory Rate 20 Blood Pressure 160/68 H Pulse Oximetry 94 L 96 05/08/18 00:00 05/08/18 02:00 05/08/18 04:00 Temperature 98 F 97.8 F Pulse Rate 76 77 64 Respiratory Rate 18 19 Blood Pressure 149/68 H 165/70 H Pulse Oximetry 96 93 L 05/08/18 06:00 05/08/18 07:34 Temperature Pulse Rate 65 71 Respiratory Rate 20 Blood Pressure Pulse Oximetry 91 L Intake & Output 05/07/18 05/08/18 05/08/18 18:59 06:59 18:59 Intake Total 800 / 800 340 / 340 Output Total 1500 / 1500 1100 / 1100 Balance -700 / -700 -760 / -760 Weight 112.2 kg Intake: IV 100 / 100 Rocephin Inj 2,000 MG In NS Inj 100 / 100 100 ML @ 200 mls/hr IV.SIG Q24H VIJAYA Rx#:[id number] Oral 800 / 800 240 / 240 Other 0 / 0 Output: Urine 0 / 0 Stool 300 / 300 0 / 0 Urine Amount (Catheter) 1200 / 1200 700 / 700 Indwelling Temp Sensing 1200 / 1200 700 / 700 Catheter Stool Amount (Stoma) 400 / 400 Pre-Hospital: Left Lower 400 / 400 Abdomen Other: # Incontinent Voids 0 # Urine Diapers 0 Date of Last Bowel Movement 05/07/18 05/06/18 # Bowel Movements 0 Narrative: GENERAL: WDWN obese male patient, not in any acute distress. Awake and alert. Appears distraught and depressed at this time SKIN: Warm and dry. HEAD: Atraumatic. Normocephalic. EYES: Pupils equal and round. No scleral icterus. No injection or drainage. EOMI ENT: No nasal bleeding or discharge. Mucous membranes pink and moist. NECK: Trachea midline. No JVD. CARDIOVASCULAR: IRRR S1-S2 no S3 or S4 RESPIRATORY: No accessory muscle use. Diminished bilaterally. Breath sounds equal bilaterally. GASTROINTESTINAL: Abdomen soft, non-tender, nondistended. +BS. GENITOURINARY: Rollins in place with clear yellow urine in bag. Rollins catheter in place MUSCULOSKELETAL: Extremities without clubbing or cyanosis. Trace to 1+ BLE edema. No obvious deformities. NEUROLOGICAL: Awake and alert. No obvious cranial nerve deficits. Motor grossly within normal limits. Able to move all extremities spontaneously. Normal speech. PSYCHIATRIC: INAppropriate mood and affect; insight and judgment ABnormal. Rollins catheter in place - Urinary Catheter Management Indwelling Temp Sensing Catheter Cath placed during this visit: yes Reason for continuing: Hourly intake/output Insertion date: 04/25/18 Insertion time: 20:00 Results - Labs CBC & Chem 7: 05/07/18 11:57 05/07/18 11:57 Laboratory Results - last 24 hr 05/07/18 05/07/18 05/07/18 11:57 11:57 13:02 WBC 9.0 RBC 4.55 Hgb 9.0 L Hct 27.8 L MCV 61.2 L MCH 19.7 L MCHC 32.2 RDW 18.6 H Plt Count 118 L MPV 8.6 Prelim Diff (Auto) Slide review pending Neut % (Auto) 56.2 Lymph % (Auto) 38.0 [place] % (Auto) 4.4 Eos % (Auto) 0.9 Baso % (Auto) 0.5 Neut # (Auto) 5.1 Lymph # (Auto) 3.4 [place] # (Auto) 0.4 Eos # (Auto) 0.1 Baso # (Auto) 0.0 WBC Differential Manual diff final Seg Neuts % (Manual) 34 Band Neuts % (Manual) 5 Lymphocytes % (Manual) 59 H Monocytes % (Manual) 1 Eosinophils % (Manual) 1 Abs Neuts (Manual) 3.5 Differential Comment . Platelet Estimate Low L Platelet Morphology Normal Ovalocytes 1+ H Sodium 143 Potassium 5.2 H D Chloride 110 H Carbon Dioxide 26.6 Anion Gap 6 BUN 31 H Creatinine 1.29 Estimated GFR 53 L POC Glucose 96 Random Glucose 96 Calcium 8.0 L Phosphorus 2.3 L Magnesium 1.7 Total Bilirubin 0.6 AST 112 H ALT 322 H Alkaline Phosphatase 408 H Total Protein 5.4 L Albumin 1.9 L 05/07/18 05/07/18 05/08/18 17:56 20:17 09:22 WBC RBC Hgb Hct MCV MCH MCHC RDW Plt Count MPV Prelim Diff (Auto) Neut % (Auto) Lymph % (Auto) [place] % (Auto) Eos % (Auto) Baso % (Auto) Neut # (Auto) Lymph # (Auto) [place] # (Auto) Eos # (Auto) Baso # (Auto) WBC Differential Seg Neuts % (Manual) Band Neuts % (Manual) Lymphocytes % (Manual) Monocytes % (Manual) Eosinophils % (Manual) Abs Neuts (Manual) Differential Comment Platelet Estimate Platelet Morphology Ovalocytes Sodium Potassium Chloride Carbon Dioxide Anion Gap BUN Creatinine Estimated GFR POC Glucose 198 H 160 H 154 H Random Glucose Calcium Phosphorus Magnesium Total Bilirubin AST ALT Alkaline Phosphatase Total Protein Albumin - Imaging Chest X-Ray 04/25/18 18:59 CONCLUSION: 1. Bibasilar patchiness consistent with atelectasis and/or infiltrates. 2. Cardiomegaly. Chest X-Ray 04/26/18 11:03 CONCLUSION: Central line placement as above. Chest X-Ray 04/27/18 06:00 CONCLUSION: Mild consolidation and small effusions at each base, slightly worse in the interim. Chest X-Ray 04/28/18 00:00 Cardiomegaly and aortic calcification noted. There is patchy right basilar airspace disease noted. There is mild atelectasis at the left base. Cannot exclude small effusions. CONCLUSION: Basilar airspace disease. Head CT 04/29/18 00:00 CONCLUSION: 1. Stable appearance of the brain. . - Procedures Date of procedure: 04/26/18 Pre-op diagnosis: septic shock Post-op diagnosis: same Procedure: US guided RIJ central line Central line checklist completed, timeout completed. I wore a surgical cap, mask with protective eyewear, full gown and sterile gloves throughout the procedure. Right neck region was prepped using chlorhexidine scrub and draped in sterile fashion. The right IJ was identified using the ultrasound. Anesthesia was achieved over the vein using 1% lidocaine. The introducer needle was inserted into the right IJ under direct ultrasound visualization. Venous blood was withdrawn. The syringe was removed and a guidewire was advanced into the introducer needle. A small incision was made at the skin surface with a scalpel and the introducer needle was exchanged for a dilator over the guidewire. After appropriate dilation was obtained, the dilator was exchanged over the wire for a triple lumen, 7F, antibiotic coated central venous catheter. The wire was removed and the catheter was sutured in place at 18 cm. A sterile central line dressing was placed over the catheter at the insertion site. The patient tolerated the procedure without any hemodynamic compromise. At time of procedure completion, all ports aspirated and flushed properly. Post- procedure chest x-ray is pending at this time. Anesthesia: local Surgeon: Radha Nance Estimated blood loss (mL): 1 Pathology: none sent Condition: critical Disposition: ICU Documented By: Radha Nance MD Assessment and Plan - Plan Patient is now made himself a DNR Atrial fibrillation / Flutter with RVR History of hypertension -rate uncontrolled. Give additional dose of Metoprolol now. Transfer patient. Begin on Cardizem drip. Hold po Cardizem. -Rate had increased on Cardizem to 15 mg/h -Cardiology following, appreciate assistance -continue on po amiodarone and metoprolol -Continue Eliquis -Patient is on chronic prednisone which was placed on hold and started stress dose steroids 100 mg hydrocortisone IV every 8 hours on 04/26. Tapered down and DC. However patient with wheezing on 04/28 and started on solumedrol tapered. -Patient had Cardizem increased orally--to be weaned off Cardizem drip today Septic shock Gram-negative bacteremia, E coli UTI, Ecoli -repeat blood cx neg -ID following, on IV Ceftriaxone -IV fluid hydration, reduce maintenance fluid rate to 50 mL/h Acute kidney failure -BUN/creatinine improving with aggressive hydration -CMP in a.m., continue to use IV fluid to 50 mL/h COPD Chronic respiratory failure O2 dependent -DuoNeb scheduled and as needed -Patient is on chronic prednisone which was placed on hold and started stress dose steroids 100 mg hydrocortisone IV every 8 hours on 04/26. Tapered down and DC. However patient with wheezing on 04/28 and started on solumedrol taper. Diabetes mellitus -Hold metformin while in the ICU -patient on Levemir 10u BID but has been refusing -Insulin sliding scale Monitor sugars BPH Urinary retention -continue on Flomax -Evaluated by Urology. Has rollins at this time. Continue rollins at DC . To follow up as OP with urology We will need to go home with Rollins catheter Severe depression Noncompliance Patient is refusing his medications will ask psychiatry to consult Patient refusing lab work HAD input from psychiatry We will consult palliative care also Increase activity A.m. labs If remains stable transfer out of ICU later today or tomorrow Proph: GI and DVT prophylaxis -IV famotidine and Eliquis patient HAS now made himself a DNR Transfer out of ICU Continues to take medications hopefully can be discharged to [facility] facility next few days SWITCH TO PO CEFUROXIME DC TO SNF Code Status: DNR Discussed Condition With: RN AND PT Discharge Planning: DC TO SNF CONTINUE ROLLINS
--- NOTE | 2018-05-08 10:19 | P.DS ---
Date of admission: 04/25/18 20:22 Primary care physician: Yfn Myles MD Attending physician on discharge: Edgard Alatorre Anticipated date of discharge: 05/08/18 Brief History from admission: 82-year-old male presents initially for an evaluation of abnormal labs at his long-term facility. He was found to have a UTI and abnormal labs. Apparently his BUN and creatinine have been increased with his BUN being in the 120s and his creatinine in the 4s. His white count is critically elevated to 25 with severe bandemia, patient is also borderline hypotensive and therefore he is admitted to ICU with diagnosis of severe sepsis. Patient has significant history of CHF severely reduced ejection fracture. Patient himself is not a good historian cannot provide much history. No signs of trauma. Patient update on day of discharge: 9- Patient remains on Cardizem drip went back into A. fib/ a flutter remains on Cardizem drip at 15 mg/h Discussed with RN and patient Dr. Mendiola is aware of the heart rate and meds have been adjusted Physical therapy and occupational therapy to eval and treat A.m. labs 9-6 Cardizem dose has been increased by Dr. Mendiola Try to wean off Cardizem drip Monitor today in ICU If stable transfer floor tomorrow A.m. labs Discussed with RN and patient Patient did not take all his medications last night 9-7 patient is refusing his medications today Discussed with RN and patient Patient appears quite distraught and depressed We will consult psychiatry for severe depression and not wanting to take any more of his medications We will get a.m. 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 DC TO SNF TODAY DS: Diagnosis - Discharge Diagnosis (1) Acute UTI Status: Acute (2) Acute alteration in mental status Status: Acute (3) Acute hypotension Status: Acute (4) Adjustment disorder Status: Chronic (5) Afib Status: Chronic (6) Bacteremia Status: Acute (7) CHF (congestive heart failure) Status: Chronic (8) Sepsis Status: Acute (9) Thrombocytopenia Status: Acute (10) Weakness Status: Chronic (11) Acute renal insufficiency Status: Acute (12) Cardiomyopathy Status: Chronic (13) Chest pain, atypical Status: Acute (14) Hypertension Status: Chronic (15) Hypotension Status: Acute (16) Obesity Status: Chronic (17) COPD (chronic obstructive pulmonary disease) Status: Chronic (18) Hypernatremia Status: Acute (19) Metabolic acidosis Status: Resolved (20) Respiratory failure Status: Resolved DS: Medications - Discharge Medications Prescriptions: acidophilus-sporogenes [Acidophilus Ex Str (L. sporog)] 1 tab PO TID #90 tab amiodarone 200 mg PO Q12HR #60 tab apixaban [Eliquis] 2.5 mg PO BID #60 tab cefuroxime axetil 500 mg PO Q12H #14 tab diltiazem HCl 30 mg PO QID #120 tab metoprolol tartrate 50 mg PO TID #90 tab oxycodone 5 mg PO Q6H PRN #12 tab PRN Reason: Pain 3 to 10 prednisone 10 mg PO DAILY #30 tab sennosides-docusate sodium [Senna Plus] 1 tab PO BID #120 tab DS: Summary Hospital Course: 82-year-old male presents initially for an evaluation of abnormal labs at his long-term facility. He was found to have a UTI and abnormal labs. Apparently his BUN and creatinine have been increased with his BUN being in the 120s and his creatinine in the 4s. His white count is critically elevated to 25 with severe bandemia, patient is also borderline hypotensive and therefore he is admitted to ICU with diagnosis of severe sepsis. Patient has significant history of CHF severely reduced ejection fracture. Patient himself is not a good historian cannot provide much history. No signs of trauma. Patient update on day of discharge: 05-03 Patient remains on Cardizem drip went back into A. fib/ a flutter remains on Cardizem drip at 15 mg/h Discussed with RN and patient Dr. Mendiola is aware of the heart rate and meds have been adjusted Physical therapy and occupational therapy to eval and treat A.m. labs 9-6 Cardizem dose has been increased by Dr. Mendiola Try to wean off Cardizem drip Monitor today in ICU If stable transfer floor tomorrow A.m. labs Discussed with RN and patient Patient did not take all his medications last night 9-7 patient is refusing his medications today Discussed with RN and patient Patient appears quite distraught and depressed We will consult psychiatry for severe depression and not wanting to take any more of his medications We will get a.m. 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 DC TO SNF TODAY - Time Spent with Patient Total time spent providing and/or coordinating discharge services: Greater than 30 minutes - Quality: VTE Deep Vein Thrombosis/Pulmonary Embolism Present on Admission: No Exam Vital signs: Vital Signs 05/07/18 12:00 05/07/18 16:00 05/07/18 18:00 Temperature 98.3 F 98.8 F Pulse Rate 59 L 63 63 Respiratory Rate 15 15 Blood Pressure 165/70 H 154/69 H Pulse Oximetry 100 100 05/07/18 19:34 05/07/18 20:00 05/07/18 22:00 Temperature 97.9 F Pulse Rate 63 66 Respiratory Rate 20 Blood Pressure 160/68 H Pulse Oximetry 94 L 96 05/08/18 00:00 05/08/18 02:00 05/08/18 04:00 Temperature 98 F 97.8 F Pulse Rate 76 77 64 Respiratory Rate 18 19 Blood Pressure 149/68 H 165/70 H Pulse Oximetry 96 93 L 05/08/18 06:00 05/08/18 07:34 Temperature Pulse Rate 65 71 Respiratory Rate 20 Blood Pressure Pulse Oximetry 91 L Intake & Output 05/07/18 05/08/18 05/08/18 18:59 06:59 18:59 Intake Total 800 / 800 340 / 340 Output Total 1500 / 1500 1100 / 1100 Balance -700 / -700 -760 / -760 Weight 112.2 kg Intake: IV 100 / 100 Rocephin Inj 2,000 MG In NS Inj 100 / 100 100 ML @ 200 mls/hr IV.SIG Q24H [facility] Rx#:[id number] Oral 800 / 800 240 / 240 Other 0 / 0 Output: Urine 0 / 0 Stool 300 / 300 0 / 0 Urine Amount (Catheter) 1200 / 1200 700 / 700 Indwelling Temp Sensing 1200 / 1200 700 / 700 Catheter Stool Amount (Stoma) 400 / 400 Pre-Hospital: Left Lower 400 / 400 Abdomen Other: # Incontinent Voids 0 # Urine Diapers 0 Date of Last Bowel Movement 05/07/18 05/06/18 # Bowel Movements 0 Narrative: GENERAL: WDWN obese male patient, not in any acute distress. Awake and alert. Appears distraught and depressed at this time SKIN: Warm and dry. HEAD: Atraumatic. Normocephalic. EYES: Pupils equal and round. No scleral icterus. No injection or drainage. EOMI ENT: No nasal bleeding or discharge. Mucous membranes pink and moist. NECK: Trachea midline. No JVD. CARDIOVASCULAR: IRRR S1-S2 no S3 or S4 RESPIRATORY: No accessory muscle use. Diminished bilaterally. Breath sounds equal bilaterally. GASTROINTESTINAL: Abdomen soft, non-tender, nondistended. +BS. GENITOURINARY: Barker in place with clear yellow urine in bag. Barker catheter in place MUSCULOSKELETAL: Extremities without clubbing or cyanosis. Trace to 1+ BLE edema. No obvious deformities. NEUROLOGICAL: Awake and alert. No obvious cranial nerve deficits. Motor grossly within normal limits. Able to move all extremities spontaneously. Normal speech. PSYCHIATRIC: INAppropriate mood and affect; insight and judgment ABnormal. Barker catheter in place Results Procedures completed during hospitalization: Date of procedure: 04/26/18 Pre-op diagnosis: septic shock Post-op diagnosis: same Procedure: US guided RIJ central line Central line checklist completed, timeout completed. I wore a surgical cap, mask with protective eyewear, full gown and sterile gloves throughout the procedure. Right neck region was prepped using chlorhexidine scrub and draped in sterile fashion. The right IJ was identified using the ultrasound. Anesthesia was achieved over the vein using 1% lidocaine. The introducer needle was inserted into the right IJ under direct ultrasound visualization. Venous blood was withdrawn. The syringe was removed and a guidewire was advanced into the introducer needle. A small incision was made at the skin surface with a scalpel and the introducer needle was exchanged for a dilator over the guidewire. After appropriate dilation was obtained, the dilator was exchanged over the wire for a triple lumen, 7F, antibiotic coated central venous catheter. The wire was removed and the catheter was sutured in place at 18 cm. A sterile central line dressing was placed over the catheter at the insertion site. The patient tolerated the procedure without any hemodynamic compromise. At time of procedure completion, all ports aspirated and flushed properly. Post- procedure chest x-ray is pending at this time. Anesthesia: local Surgeon: Radha Nance Estimated blood loss (mL): 1 Pathology: none sent Condition: critical Disposition: ICU Documented By: Radha Nance MD Completed studies during hospitalization: Laboratory Results WBC 9.0 th/mm3 (4.0-11.0) 05/07/18 11:57 RBC 4.55 mil/mm3 (4.50-5.90) 05/07/18 11:57 Hgb 9.0 gm/dL (13.0-17.0) L 05/07/18 11:57 Hct 27.8 % (39.0-51.0) L 05/07/18 11:57 MCV 61.2 fL (80.0-100.0) L 05/07/18 11:57 MCH 19.7 pg (27.0-34.0) L 05/07/18 11:57 MCHC 32.2 % (32.0-36.0) 05/07/18 11:57 RDW 18.6 % (11.6-17.2) H 05/07/18 11:57 Plt Count 118 th/mm3 (150-450) L 05/07/18 11:57 MPV 8.6 fL (7.0-11.0) 05/07/18 11:57 Prelim Diff (Auto) Slide review pending 05/07/18 11:57 Neut % (Auto) 56.2 % (16.0-70.0) 05/07/18 11:57 Lymph % (Auto) 38.0 % (9.0-44.0) 05/07/18 11:57 [place] % (Auto) 4.4 % (0.0-8.0) 05/07/18 11:57 Eos % (Auto) 0.9 % (0.0-4.0) 05/07/18 11:57 Baso % (Auto) 0.5 % (0.0-2.0) 05/07/18 11:57 Neut # (Auto) 5.1 th/mm3 (1.8-7.7) 05/07/18 11:57 Lymph # (Auto) 3.4 th/mm3 (1.0-4.8) 05/07/18 11:57 [place] # (Auto) 0.4 th/mm3 (0.0-0.9) 05/07/18 11:57 Eos # (Auto) 0.1 th/mm3 (0.0-0.4) 05/07/18 11:57 Baso # (Auto) 0.0 th/mm3 (0.0-0.2) 05/07/18 11:57 WBC Differential Manual diff final 05/07/18 11:57 Diff Scan Auto diff confirmed 05/05/18 13:37 Seg Neuts % (Manual) 34 % (16-70) 05/07/18 11:57 Band Neuts % (Manual) 5 % (0-6) 05/07/18 11:57 Lymphocytes % (Manual) 59 % (9-44) H 05/07/18 11:57 Monocytes % (Manual) 1 % (0-8) 05/07/18 11:57 Eosinophils % (Manual) 1 % (0-4) 05/07/18 11:57 Metamyelocytes % (Man) 1 % (0-1) 05/03/18 02:55 Myelocytes % (Man) 1 % (0-0) H 05/06/18 03:57 Abs Neuts (Manual) 3.5 th/mm3 (1.8-7.7) 05/07/18 11:57 Nucleated RBCs/100 WBC 1 /100 WBC (0-0) H 05/02/18 13:14 Differential Comment . 05/07/18 11:57 Smudge Cells Present (None) H 05/01/18 09:16 Toxic Granulation 1+ (None) H 05/02/18 13:14 Platelet Estimate Low (Normal) L 05/07/18 11:57 Platelet Morphology Normal (Normal) 05/07/18 11:57 Basophilic Stippling Moderate (None) H 04/25/18 19:00 Target Cells 1+ (None) H 04/25/18 19:00 Ovalocytes 1+ (None) H 05/07/18 11:57 PT 11.3 sec (9.8-11.6) 04/25/18 19:00 INR 1.1 Ratio 04/25/18 19:00 APTT 24.8 sec (24.3-30.1) 04/25/18 19:00 Sodium 143 meq/L (136-145) 05/07/18 11:57 Potassium 5.2 meq/L (3.5-5.1) H D 05/07/18 11:57 Chloride 110 meq/L (98-107) H 05/07/18 11:57 Carbon Dioxide 26.6 meq/L (21.0-32.0) 05/07/18 11:57 Anion Gap 6 meq/L (5-15) 05/07/18 11:57 BUN 31 mg/dL (7-18) H 05/07/18 11:57 Creatinine 1.29 mg/dL (0.60-1.30) 05/07/18 11:57 Estimated GFR 53 mL/min (>89) L 05/07/18 11:57 POC Glucose 154 mg/dl (68-110) H 05/08/18 09:22 Random Glucose 96 mg/dL (74-106) 05/07/18 11:57 Hemoglobin A1c 9.6 % (4.3-6.0) H 05/04/18 02:32 Lactic Acid 1.3 mmol/L (0.4-2.0) 04/26/18 04:41 Calcium 8.0 mg/dL (8.5-10.1) L 05/07/18 11:57 Phosphorus 2.3 mg/dL (2.5-4.9) L 05/07/18 11:57 Magnesium 1.7 mg/dL (1.5-2.5) 05/07/18 11:57 Total Bilirubin 0.6 mg/dL (0.2-1.0) 05/07/18 11:57 AST 112 U/L (15-37) H 05/07/18 11:57 ALT 322 U/L (12-78) H 05/07/18 11:57 Alkaline Phosphatase 408 U/L (45-117) H 05/07/18 11:57 Troponin I 0.06 ng/mL (0.02-0.05) H 04/25/18 19:00 C-Reactive Protein 22.20 mg/dL (0.00-0.30) H 04/26/18 12:03 B-Natriuretic Peptide 445 pg/mL (0-100) H 04/25/18 19:00 Total Protein 5.4 g/dL (6.4-8.2) L 05/07/18 11:57 Albumin 1.9 g/dL (3.4-5.0) L 05/07/18 11:57 Carcinoembryonic Ag 2.6 ng/mL (0.2-5.0) 04/26/18 12:03 TSH 0.511 uIU/mL (0.358-3.740) 05/04/18 02:32 Free T4 1.43 ng/dL (0.76-1.46) 05/04/18 02:32 Urine Color Mei (Yellw/Straw) 04/25/18 19:25 Urine Clarity Turbid (Clear) H 04/25/18 19:25 Urine pH 5.0 (5.0-8.5) 04/25/18 19:25 Ur Specific [place] 1.010 (1.002-1.035) 04/25/18 19:25 Urine Protein 30 mg/dL (Neg-Trace) H 04/25/18 19:25 Urine Glucose (UA) Negative mg/dL (Negative) 04/25/18 19:25 Urine Ketones Negative mg/dL (Negative) 04/25/18 19:25 Urine Occult Blood Moderate (Negative) H 04/25/18 19:25 Urine Nitrate Negative (Negative) 04/25/18 19:25 Urine Bilirubin Negative (Negative) 04/25/18 19:25 Urine Urobilinogen Less than 2 mg/dL (Less than 2) 04/25/18 19:25 Ur Leukocyte Esterase Large (Negative) H 04/25/18 19:25 Urine RBC 26 /hpf (0-3) H 04/25/18 19:25 Urine WBC /hpf (0-5) 04/25/18 19:25 Urine WBC Clumps Many (None) H 04/25/18 19:25 Amorphous Sediment Occasional /hpf (None) H 04/25/18 19:25 Urine Bacteria Many /hpf (None) H 04/25/18 19:25 Urine Mucus Few /lpf (Occasional) H 04/25/18 19:25 Micro UA Comment Cath-culture ind 04/25/18 19:25 Ur Microscopic Review Not Reportable 04/25/18 19:25 Urine Culture Comments Cath-cult indicated 04/25/18 19:25 Nasal Screen MRSA (PCR) Not detected (Negative) 05/02/18 11:45 Vancomycin Trough 6.5 mcg/mL (5.0-10.0) 04/26/18 09:47 Hepatitis A IgM Ab Nonreactive (Nonreactive) 04/26/18 12:03 Hep Bs Antigen Nonreactive (Nonreactive) 04/26/18 12:03 Hep B Core IgM Ab Nonreactive (Nonreactive) 04/26/18 12:03 Hep C IgG Ab Nonreactive (Nonreactive) 04/26/18 12:03 Impressions Chest X-Ray 04/28/18 00:00 Cardiomegaly and aortic calcification noted. There is patchy right basilar airspace disease noted. There is mild atelectasis at the left base. Cannot exclude small effusions. CONCLUSION: Basilar airspace disease. Head CT 04/29/18 00:00 CONCLUSION: 1. Stable appearance of the brain. . Labs on day of discharge: Labs from last 24 hours 05/08/18 05/07/18 05/07/18 09:22 20:17 17:56 WBC RBC Hgb Hct MCV MCH MCHC RDW Plt Count MPV Prelim Diff (Auto) Neut % (Auto) Lymph % (Auto) [place] % (Auto) Eos % (Auto) Baso % (Auto) Neut # (Auto) Lymph # (Auto) [place] # (Auto) Eos # (Auto) Baso # (Auto) WBC Differential Seg Neuts % (Manual) Band Neuts % (Manual) Lymphocytes % (Manual) Monocytes % (Manual) Eosinophils % (Manual) Abs Neuts (Manual) Differential Comment Platelet Estimate Platelet Morphology Ovalocytes Sodium Potassium Chloride Carbon Dioxide Anion Gap BUN Creatinine Estimated GFR POC Glucose 154 H 160 H 198 H Random Glucose Calcium Phosphorus Magnesium Total Bilirubin AST ALT Alkaline Phosphatase Total Protein Albumin 05/07/18 05/07/18 05/07/18 13:02 11:57 11:57 WBC 9.0 RBC 4.55 Hgb 9.0 L Hct 27.8 L MCV 61.2 L MCH 19.7 L MCHC 32.2 RDW 18.6 H Plt Count 118 L MPV 8.6 Prelim Diff (Auto) Slide review pending Neut % (Auto) 56.2 Lymph % (Auto) 38.0 [place] % (Auto) 4.4 Eos % (Auto) 0.9 Baso % (Auto) 0.5 Neut # (Auto) 5.1 Lymph # (Auto) 3.4 [place] # (Auto) 0.4 Eos # (Auto) 0.1 Baso # (Auto) 0.0 WBC Differential Manual diff final Seg Neuts % (Manual) 34 Band Neuts % (Manual) 5 Lymphocytes % (Manual) 59 H Monocytes % (Manual) 1 Eosinophils % (Manual) 1 Abs Neuts (Manual) 3.5 Differential Comment . Platelet Estimate Low L Platelet Morphology Normal Ovalocytes 1+ H Sodium 143 Potassium 5.2 H D Chloride 110 H Carbon Dioxide 26.6 Anion Gap 6 BUN 31 H Creatinine 1.29 Estimated GFR 53 L POC Glucose 96 Random Glucose 96 Calcium 8.0 L Phosphorus 2.3 L Magnesium 1.7 Total Bilirubin 0.6 AST 112 H ALT 322 H Alkaline Phosphatase 408 H Total Protein 5.4 L Albumin 1.9 L - Impressions ITS Impressions Chest X-Ray 04/28/18 00:00 Cardiomegaly and aortic calcification noted. There is patchy right basilar airspace disease noted. There is mild atelectasis at the left base. Cannot exclude small effusions. CONCLUSION: Basilar airspace disease. Head CT 04/29/18 00:00 CONCLUSION: 1. Stable appearance of the brain. . Discharge Plan - Discharge Disposition Patient Disposition: Discharge to SNF - Discharge Condition Condition: Good - Discharge Order Discharge Orders: Discharge Order (Routine); Ordered 05/08/18 Ordered By: Edgard Alatorre - Discharge Details Anticipated Discharge Date: 05/08/18 Discharge Comment: DC TO SNF TODAY - Physicians Team Primary Care Provider: Yfn Myles Attending Provider: Edgard Alatorre Other Providers: [facility],Insurance ; Colette Gupta MD ; [facility],Agency ; Pacheco Mendiola, DO ; Unruly Cummings MD ; [facility],Agency ; Warren Cox MD ; Александр Berry MD
--- NOTE | 2018-05-08 12:15 | P.PNCA ---
Subjective Interval history: No events over the weekend Ready to leave the hospital Physical Exam Vital signs: Vital Signs 05/07/18 16:00 05/07/18 18:00 05/07/18 19:34 Temperature 98.8 F Pulse Rate 63 63 Respiratory Rate 15 Blood Pressure 154/69 H Pulse Oximetry 100 94 L 05/07/18 20:00 05/07/18 22:00 05/08/18 00:00 Temperature 97.9 F 98 F Pulse Rate 63 66 76 Respiratory Rate 20 18 Blood Pressure 160/68 H 149/68 H Pulse Oximetry 96 96 05/08/18 02:00 05/08/18 04:00 05/08/18 06:00 Temperature 97.8 F Pulse Rate 77 64 65 Respiratory Rate 19 Blood Pressure 165/70 H Pulse Oximetry 93 L 05/08/18 07:34 05/08/18 08:00 05/08/18 09:00 Temperature 98.0 F Pulse Rate 71 69 70 Respiratory Rate 20 17 Blood Pressure 165/72 H Pulse Oximetry 91 L 95 05/08/18 10:00 Temperature Pulse Rate 74 Respiratory Rate Blood Pressure Pulse Oximetry Intake & Output 05/07/18 05/08/18 05/08/18 18:59 06:59 18:59 Intake Total 800 / 800 340 / 340 Output Total 1500 / 1500 1100 / 1100 Balance -700 / -700 -760 / -760 Weight 112.2 kg Intake: IV 100 / 100 Rocephin Inj 2,000 MG In NS Inj 100 / 100 100 ML @ 200 mls/hr IV.SIG Q24H [facility] Rx#:[id number] Oral 800 / 800 240 / 240 Other 0 / 0 Output: Urine 0 / 0 Stool 300 / 300 0 / 0 Urine Amount (Catheter) 1200 / 1200 700 / 700 Indwelling Temp Sensing 1200 / 1200 700 / 700 Catheter Stool Amount (Stoma) 400 / 400 Pre-Hospital: Left Lower 400 / 400 Abdomen Other: # Incontinent Voids 0 # Urine Diapers 0 Date of Last Bowel Movement 05/07/18 05/06/18 05/06/18 # Bowel Movements 0 Narrative: GENERAL: WDWN obese male patient, not in any acute distress. Awake and alert. SKIN: Warm and dry. HEAD: Atraumatic. Normocephalic. EYES: Pupils equal and round. No scleral icterus. No injection or drainage. EOMI ENT: No nasal bleeding or discharge. Mucous membranes pink and moist. NECK: Trachea midline. No JVD. CARDIOVASCULAR: IRRR S1-S2 no S3 or S4 RESPIRATORY: No accessory muscle use. Diminished bilaterally. Breath sounds equal bilaterally. GASTROINTESTINAL: Abdomen soft, non-tender, nondistended. +BS. GENITOURINARY: Barker in place with clear yellow urine in bag. Barker catheter in place MUSCULOSKELETAL: Extremities without clubbing or cyanosis. Trace to 1+ BLE edema. No obvious deformities. NEUROLOGICAL: Awake and alert. No obvious cranial nerve deficits. Motor grossly within normal limits. Able to move all extremities spontaneously. Normal speech. PSYCHIATRIC: INAppropriate mood and affect; insight and judgment ABnormal. Barker catheter in place - Urinary Catheter Management Indwelling Temp Sensing Catheter Cath placed during this visit: yes Reason for continuing: Hourly intake/output Insertion date: 04/25/18 Insertion time: 20:00 Assessment and Plan - Assessment (1) Afib Code(s): I48.91 - Unspecified atrial fibrillation Status: Chronic (2) Thrombocytopenia Code(s): D69.6 - Thrombocytopenia, unspecified Status: Acute (3) Bacteremia Code(s): R78.81 - Bacteremia Status: Acute (4) Obesity Code(s): E66.9 - Obesity, unspecified Status: Chronic (5) Renal insufficiency Code(s): N28.9 - Disorder of kidney and ureter, unspecified Status: Acute (6) Sepsis Code(s): A41.9 - Sepsis, unspecified organism Status: Acute (7) Acute UTI Code(s): N39.0 - Urinary tract infection, site not specified Status: Acute (8) CHF (congestive heart failure) Code(s): I50.9 - Heart failure, unspecified Status: Chronic - Plan 1) AFib/Flutter with RVR Converted to sinus rhythm again Amio PO Most likely potentiated by UTI/Bacteremia Cardizem drip off now Cardizem PO 2) Con't on Metoprolol Coreg stopped, should not be on both 3) Thrombocytopenia May be due to sepsis, getting better Will continue on Eliquis, but if further drop in Plts Eliquis will need to be stopped 4) If further episodes of AFib with RVR, may need Dr. Pope to evaluate 5) Agree with out of the unit when possible 6) Cardiovascularly stable for discharge Discussed with primary (6) Sepsis Qualifiers: Sepsis type: sepsis due to unspecified organism Qualified Code(s): A41.9 - Sepsis, unspecified organism
--- NOTE | 2018-05-08 15:25 | P.PNPAL ---
Called [facility] to make sure they knew he elected NO CODE status. I sent a copy of the [place] DNR order to Myah at fax # [phone] in the admitting office of [facility] for their records. She is appreciative of the call.
== END 2018-05-08 14:55 ==
LOC: NEPC 18:36 → NEDA 20:22 → HIMC 21:40 → N06 04-29 18:02 → HIMC 05-02 11:15
PROVIDERS: ADMIT Hospitalist; ATTEND Hospitalist